=== PATIENT | male | born 1960 | race Caucasian/White ===

== ENCOUNTER 2017-02-27 11:45 | Inpatient (IN) ==
[2017-02-27] MEDS ORDERED: methylPREDNISolone 125 MG/2 ML VIAL IVP ONE (12:52)
[2017-02-27] MEDS ORDERED: Ipratropium/Albuterol Neb 3 ML IH ONE (12:52)
--- NOTE | 2017-02-27 13:21 | Emergency Department Note ---
Disposition Clinical Impression: COPD (chronic obstructive pulmonary disease) Qualifiers: COPD type: chronic bronchitis Chronic bronchitis type: unspecified Qualified Code(s): J42 - Unspecified chronic bronchitis Disposition: Admitted As Inpatient Condition: Good Referrals: Celso Simpson MD [Primary Care Provider] - Forms: ED Satisfaction Letter Time of Disposition: 15:30 General Adult HPI - General Chief complaint: ED Shortness of Breath/Dyspnea Stated complaint: PNEUMONIA Time Seen by Provider: 02/27/17 12:52 Source: patient Limitations: no limitations Nursing Notes Reviewed: Yes Vital Signs Reviewed: Yes - History of Present Illness HPI Narrative: HPI: 57-year-old male history of multiple PEs and DVTs factor V Leiden deficiency has a 2 day history of increasing chest discomfort dyspnea on exertion and malaise. Was seen earlier in the week and given "Z-[place]". Was seen earlier in the week at [facility] evaluated and worked up for COPD flare wanted was recommended to be admitted but the patient says he wanted to go home because he had an outpatient CAT scan of his chest. Patient is here for further evaluation he has speech dyspnea & expiratory wheezes Patient stated that the reason why he declined being admitted as he wanted to go to [place] where he got his [place] filter placed. Pain Scale: 8 - Related Data Home Medications Medication Instructions Recorded Confirmed ALPRAZolam [Xanax 1 MG Tablet] 1 mg PO TID 03/27/15 02/27/17 Gabapentin [Neurontin] 300 mg PO TID 03/27/15 02/27/17 Tizanidine HCl [Zanaflex] 4 mg PO TID 03/27/15 02/27/17 Warfarin [Coumadin] 10 mg PO QPM 03/27/15 02/27/17 DULoxetine [Cymbalta] 30 mg PO DAILY 02/27/17 02/27/17 Lisinopril [Zestril] 20 mg PO DAILY 02/27/17 02/27/17 Previous Rx's Medication Instructions Recorded Albuterol Sulfate [Albuterol 2 puff IH Q4HR PRN #1 hfa.aer.ad 04/01/15 Inhaler] Omeprazole [PriLOSEC] 40 mg PO DAILY@0630 #30 capsule 08/16/15 Allergies Allergy/AdvReac Type Severity Reaction Status Date / Time No Known Allergies Allergy Verified 02/18/17 16:01 All systems ED: reviewed and negative except as stated. Cardiovascular: Reports: chest pain Respiratory: Reports: cough, dyspnea, wheezes Past Medical History - Past Medical History Attestation: Yes The following information was validated with the patient. Source: patient Medical history: Reports: COPD, DVT, hypertension, pulmonary embolus, other ( Factor V Leiden deficiency) Surgical history: Reports: non-contributory Psychiatric history: Reports: anxiety - Social History Smoking Status: Current some day smoker Smokeless Tobacco Status: No Alcohol use: Reports: none Drug use: Reports: none Physical Exam - General Limitations: no limitations General appearance: alert, anxious, in distress - Head Head exam: atraumatic, normocephalic - Eye Eye exam: Present: normal appearance, PERRL - ENT ENT exam: normal exam, normal oropharynx - Neck Neck exam: Present: normal inspection, full ROM - Chest Chest inspection: Present: normal inspection, symmetric chest wall rise - Respiratory Respiratory exam: Present: respiratory distress, wheezes - Cardiovascular Cardiovascular exam: Present: regular rate, normal rhythm - Abdominal Exam Abdominal exam: Present: soft, Non-Tender - Extremities Exam Extremities exam: Present: normal inspection, full ROM - Expanded Lower Extremity Exam Neurovascular/Tendon exam: Present: normal capillary refill Gait: not tested/not observed - Back Exam Back exam: Present: normal inspection, full ROM - Neurological Exam Neurological exam: Present: alert, oriented X3, CN II-XII intact - Psychiatric Psychiatric exam: Present: normal affect, normal mood - Skin Skin exam: Present: warm, dry, intact Course - Reevaluation(s) Reevaluation #1: Patient improving clinically on DuoNeb treatments. Chest x-ray was obtained showed no obvious large infiltrate or effusion. Patient will get a CT angiogram of the chest to exclude the possibility of PE. Providing 45 minutes critical care service this patient with admission anticipated. Disposition pending Time: 13:22 Reevaluation #2: ED workup is complete. CT angiogram of chest shows no thromboembolic phenomenon from 2008 but no acute process. Aside from a possible inflammatory process which radiology suggests might be from aspiration esophageal findings.Patient still wheezing with shortness of breath patient will be admitted for COPD flare & hypoxia.Awaiting call back from hospitalist Time: 14:59 Reevaluation #3: Discussed the case with the hospitalist Damián Alexander, patient accepted for admission in stable condition Time: 15:28 Vital Signs Temperature 98.0 F 02/27/17 11:58 Pulse Rate 83 02/27/17 11:58 Respiratory Rate 15 02/27/17 11:58 Blood Pressure 115/75 02/27/17 11:58 O2 Sat by Pulse Oximetry 97 02/27/17 11:58 Temperature 98.0 F 02/27/17 11:58 Pulse Rate 69 02/27/17 13:43 Respiratory Rate 17 02/27/17 13:43 Blood Pressure 110/70 02/27/17 13:43 O2 Sat by Pulse Oximetry 100 02/27/17 13:43 Oxygen Delivery Oxygen Delivery Aerosol Mask Medical Decision Making - Lab Data Result diagrams: 02/27/17 13:18 02/27/17 13:18 Lab Results 02/27/17 02/27/17 02/27/17 Range/Units 13:18 13:18 13:18 WBC 12.1 H (4.3-11.1) K/mcL RBC 4.49 (4.19-5.50) M/mcL Hgb 13.9 (12.9-16.9) g/dL Hct 43.0 (37.5-50.1) % MCV 95.8 (83.0-100.0) fL MCH 31.0 (28.0-33.3) pg MCHC 32.3 (31.6-35.5) g/dL RDW 13.5 (11.5-14.5) % Plt Count 258 (140-400) K/mcL MPV 9.2 L (9.4-12.4) fL Immature Gran % 1.3 (0-4) % Seg Neutrophils % 42.0 % Lymphocytes % 39.5 % Monocytes % 14.9 % Eosinophils % 2.0 % Basophils % 0.3 % Neutrophils # 5.1 (1.6-8.9) K/mcL Lymphocytes # 4.8 H (0.6-4.6) K/mcL Monocytes # 1.8 H (0.0-1.3) K/mcL Eosinophils # 0.2 (0.0-0.6) K/mcL Basophils # 0.0 (0.0-0.2) K/mcL PT (9.4-12.1) Seconds INR Sodium 140 (136-145) mEq/L Potassium 4.4 (3.5-4.5) mEq/L Chloride 102 (98-109) mEq/L Carbon Dioxide 33 H (19-29) mEq/L BUN 18 (8-26) mg/dL Creatinine 1.03 (0.72-1.25) mg/dL Est GFR ( Amer) > 60 (> 60) Est GFR (Non-Af Amer) > 60 (> 60) BUN/Creatinine Ratio 17 (6-26) Glucose 77 (70-99) mg/dL Calculated Osmolality 291 (280-300) Lactic Acid 1.1 (0.5-2.2) mmol/L Calcium 9.6 (8.6-10.8) mg/dL Troponin I (0-0.03) ng/mL B-Natriuretic Peptide (0-100) pg/mL 02/27/17 02/27/17 02/27/17 Range/Units 13:18 13:18 13:19 WBC (4.3-11.1) K/mcL RBC (4.19-5.50) M/mcL Hgb (12.9-16.9) g/dL Hct (37.5-50.1) % MCV (83.0-100.0) fL MCH (28.0-33.3) pg MCHC (31.6-35.5) g/dL RDW (11.5-14.5) % Plt Count (140-400) K/mcL MPV (9.4-12.4) fL Immature Gran % (0-4) % Seg Neutrophils % % Lymphocytes % % Monocytes % % Eosinophils % % Basophils % % Neutrophils # (1.6-8.9) K/mcL Lymphocytes # (0.6-4.6) K/mcL Monocytes # (0.0-1.3) K/mcL Eosinophils # (0.0-0.6) K/mcL Basophils # (0.0-0.2) K/mcL PT 24.4 H D (9.4-12.1) Seconds INR 2.2 D Sodium (136-145) mEq/L Potassium (3.5-4.5) mEq/L Chloride (98-109) mEq/L Carbon Dioxide (19-29) mEq/L BUN (8-26) mg/dL Creatinine (0.72-1.25) mg/dL Est GFR ( Amer) (> 60) Est GFR (Non-Af Amer) (> 60) BUN/Creatinine Ratio (6-26) Glucose (70-99) mg/dL Calculated Osmolality (280-300) Lactic Acid (0.5-2.2) mmol/L Calcium (8.6-10.8) mg/dL Troponin I 0.00 (0-0.03) ng/mL B-Natriuretic Peptide 15 (0-100) pg/mL
[2017-02-27 13:30] LABS: Basophils % 0.3 %; Eosinophils # 0.2 K/mcL (0.0-0.6); Hemoglobin 13.9 g/dL (12.9-16.9); Immature Granulocytes % 1.3 % (0-4); Lymphocytes # 4.8 K/mcL (0.6-4.6); Lymphocytes % 39.5 %; Mean Corpuscular HGB Conc 32.3 g/dL (31.6-35.5); Mean Corpuscular Volume 95.8 fL (83.0-100.0); Mean Platelet Volume 9.2 fL (9.4-12.4); Monocytes # 1.8 K/mcL (0.0-1.3); Monocytes % 14.9 %; Neutrophils # 5.1 K/mcL (1.6-8.9); Platelet Count 258 K/mcL (140-400); Red Blood Count 4.49 M/mcL (4.19-5.50); Red Cell Distribution Width 13.5 % (11.5-14.5)
[2017-02-27 13:37] LABS: INR 2.2; Prothrombin Time 24.4 Seconds (9.4-12.1)
[2017-02-27 13:47] LABS: BUN/Creatinine Ratio 17 (6-26); Blood Urea Nitrogen 18 mg/dL (8-26); Calcium 9.6 mg/dL (8.6-10.8); Carbon Dioxide 33 mEq/L (19-29); Chloride 102 mEq/L (98-109); Glucose 77 mg/dL (70-99); Osmolality,Calculated 291 (280-300); Potassium 4.4 mEq/L (3.5-4.5); Sodium 140 mEq/L (136-145); eGFR For African Americans > 60 (> 60); eGFR For Non-African Americans > 60 (> 60)
[2017-02-27] MEDS ORDERED: Levofloxacin 750 MG/150 ML 750 MG/150 ML BAG IVPB ONE (15:26)
--- NOTE | 2017-02-27 21:02 | Internal Med History&Physical ---
<Isidro Hardy - Last Filed: 02/27/17 23:32> Date of Encounter: 02/27/17 Time of Encounter: 21:02 Assessment and Plan (1) Acute exacerbation of chronic obstructive airways disease Current visit: No Status: Acute CXR shows right middle lobe linear atelectasis CT angiogram of chest shows no thromboembolic phenomenon from 2008 but no acute process. There is a possible inflammatory process, which radiology suggests might be from aspiration esophageal findings VSS WBC 12.1 Kidney function WNL Coarse wheezing throughout with prolonged expiratory phase Quit smoking 2 years, used to smoke 1.5-2PPD for 20 years. smokes around him all day at the house Plan: IV Rocephin IV Solu-Medrol Duo-neb DOTTIE Mucinex DOTTIE IH Albuterol PRN Supplemental NC O2 Likely discharge in 48-72 hours (2) Dyspnea Current visit: No Status: Acute See above Qualifiers: Dyspnea type: shortness of breath Qualified Code(s): R06.02 - Shortness of breath (3) GERD (gastroesophageal reflux disease) Current visit: Yes Status: Chronic Chronically stable. Takes PPI at home. Will resume. Qualifiers: Esophagitis presence: without esophagitis Qualified Code(s): K21.9 - Gastro -esophageal reflux disease without esophagitis (4) HTN (hypertension) Current visit: No Status: Chronic BP 115/75 on arrival. Stable. 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 Oliva is a very pleasant 57 year old male with a past medical history of COPD, HTN, GERD, Anxiety, DVT and PE with [place] filter in place who presents to the [facility] Emergency Department with a chief complaint of shortness breath. He reports the shortness of breath started over a week ago and occurs both at rest and during exertion. He has associated dry cough, anterior chest wall pain during coughing and was seen here this past Monday for similar symptoms. He was slated for admission but he refused due to followup outpatient CT of his abdomen for verification of the placement of the IVC filter in [place] the following day. Patient was given a Zithromax, but over the next week, his symptoms persisted. At home, he is using an albuterol inhaler along with nebulizer machine with minimal benefit. He was hospitalized for PNA around this time last year. On arrival to the ED, vital signs stable, WBC 12.1, BNP 15 and kidney function normal. CXR shows right middle lobe linear atelectasis and CT angiogram of chest shows no thromboembolic phenomenon from 2008 but no acute process. There is a possible inflammatory process, which radiology suggests might be from aspiration esophageal findings. He was given steroids, levaquin and breathing treatments. On evaluation, he is no acute respiratory distress and states he is taking all his medications as prescribed. He denies any hemoptysis, fevers, palpitations or LE edema. He denies any EtOH abuse and quit smoking 2 years ago after smoking 1.5-2PPD for 20 years. He goes on to state that his was just discharged from the hospital and does smoke around him everyday. Along with the IVF filter for recurrent DVT and PE, he is taking Wafarin 10mg qd. INR today was 2.2. Patient is on IVF filter #4. We will admit patient for further workup and management. Past Med Surg Social Fam HX - Past Medical History Medical history: COPD, DVT, hypertension, pulmonary embolus, other Psychiatric history: anxiety - Past Surgical History Surgical History: non-contributory - Social History Smoking Status: Current some day smoker Smokeless Tobacco Status: No Alcohol use: none Drug use: none - Family History Father Age at : 73 Cause of : bladder caner Hx Family Cardiac Disorders: Yes Hx Family Genitourinary Disorders: Yes Hx Family Reproductive Disorders: Yes Internal Medicine - H&P: Meds ALPRAZolam [Xanax 1 MG Tablet] 1 mg PO TID 03/27/15 [History] Gabapentin [Neurontin] 300 mg PO TID 03/27/15 [History] Tizanidine HCl [Zanaflex] 4 mg PO TID 03/27/15 [History] Warfarin [Coumadin] 10 mg PO QPM 03/27/15 [History] Albuterol Sulfate [Albuterol Inhaler] 2 puff IH Q4HR PRN #1 hfa.aer.ad 04/01/15 [Rx] Omeprazole [PriLOSEC] 40 mg PO DAILY@0630 #30 capsule 08/16/15 [Rx] DULoxetine [Cymbalta] 30 mg PO DAILY 02/27/17 [History] Lisinopril [Zestril] 20 mg PO DAILY 02/27/17 [History] 3 Allergy/AdvReac Type Severity Reaction Status Date / Time No Known Allergies Allergy Verified 02/18/17 16:01 All Systems PM: A 10-system review of systems was performed and is negative for pertinent findings except as documented above in the HPI. - Constitutional Constitutional: no fatigue, no fever(s) - EENT Eyes: no change in vision Nose, mouth and throat: nasal discharge - Cardiovascular Cardiovascular ROS IM: chest pain, dyspnea, dyspnea on exertion, no diaphoresis , no edema, no lightheadedness, no palpitations, no syncope - Respiratory Respiratory: as per HPI, cough, no hemoptysis - Gastrointestinal Gastrointestinal: no abdominal pain - Genitourinary Genitourinary ROS male: no dysuria - Musculoskeletal Musculoskeletal ROS IM: no muscle weakness - Integumentary Integumentary IM: no new lesions - Neurological Neurological ROS: no headache(s) - Psychiatric Psychiatric: anxiety, no behavioral changes - Hematologic/Lymphatic Hematologic/Lymphatic: as per HPI - Constitutional Vitals: Temp Pulse Resp BP Pulse Ox 98.8 F 69 14 114/66 96 02/27/17 19:57 02/27/17 19:57 02/27/17 19:57 02/27/17 19:57 02/27/17 19:57 General appearance: Present: cooperative, A&O X 3, no acute distress - Head Head exam: Present: atraumatic, normocephalic - Eye Eye exam: Present: EOMI, conjuntiva pink, sclera anicteric - ENT ENT exam: Present: mucous membranes moist - Neck Neck exam general surgery: Present: supple, trachea midline - Respiratory Respiratory exam: Present: chest wall tenderness (sternal), prolonged expiratory phase, wheezes (coars). Absent: rales, respiratory distress, rhonchi - Cardiovascular Cardiovascular exam: Present: RRR, +S1, +S2. Absent: tachycardia - GI/Abdominal GI/Abdominal exam: Present: normal bowel sounds, soft. Absent: tenderness - Rectal Rectal exam: Present: deferred - Extremities Exam Extremities exam: Present: normal capillary refill, warm. Absent: calf tenderness, pedal edema, tenderness - Neurological Exam Neurological exam: Present: alert, oriented X3, no focal deficits. Absent: speech deficit - Psychiatric Psychiatric exam: Present: normal affect, normal mood - Skin Skin exam: Present: dry, normal color, warm Internal Med - H&P Results - Labs CBC & Chem 7: 02/27/17 13:18 02/27/17 13:18 <Lazarus Barajas - Last Filed: 02/28/17 02:37> Date of Encounter: 02/27/17 Internal Medicine - H&P: HPI History of present illness: Mr. Oliva is a 57 year old male All Systems PM: A 10-system review of systems was performed and is negative for pertinent findings except as documented above in the HPI. - Constitutional Vitals: Temp Pulse Resp BP Pulse Ox 98.8 F 63 16 115/78 91 02/27/17 19:57 02/27/17 23:14 02/27/17 23:28 02/27/17 23:14 02/27/17 23:28 Internal Med - H&P Results - Labs CBC & Chem 7: 02/27/17 13:18 02/27/17 13:18 - Attending Attestation I examined this patient and my medical decision-making was reviewed with the Resident Physician. I agree with the documented findings, disposition and treatment plan as described except to the extent set forth below. I have seen and examined the patient. Patient is a 57-year-old male with past medical history of COPD, recurrent DVT, hypertension, history of PE, anxiety and GERD. Patient also has a IVC filter in place. He presents to the ED with complaints of shortness of breath. Patient is being admitted for acute exacerbation of COPD. On examination patient is awake and alert. Not in any distress. Able to provide all history. Patient will need DuoNeb breathing treatment and IV Solu-Medrol and empiric Rocephin. Patient has been explained about his condition and plan care in detail. He understood and agreed. No unanswered questions. CODE STATUS full code. He is currently on 2 L nasal cannula. Heart S1-S2 positive no murmurs. Lungs: Good air entry bilateral wheezing present. Abdomen soft nontender.
[2017-02-27] MEDS ORDERED: Ondansetron 4 MG/2 ML VIAL IVP PRN (21:06)
[2017-02-27] MEDS ORDERED: Acetaminophen 325 MG TABLET PO PRN (21:06)
[2017-02-27] MEDS ORDERED: Naloxone 0.4 MG/ML INJ IVP PRN (21:06)
[2017-02-27] MEDS ORDERED: Albuterol 2.5 MG/3 ML NEBULIZER IH PRN (21:10)
[2017-02-27] MEDS ORDERED: *HR* Warfarin 5 MG TABLET PO SCH (21:15)
[2017-02-27] MEDS: ALPRAZolam 1 MG TABLET PO PRN (22:14)
[2017-02-27] MEDS: Gabapentin 300 MG CAPSULE PO SCH (22:14)
[2017-02-27] MEDS: *HR* Warfarin 5 MG TABLET PO SCH (22:16)
[2017-02-27] MEDS: Lisinopril 20 MG TABLET PO SCH (22:16)
[2017-02-27] MEDS ORDERED: cefTRIAXone 1,000 MG in Water for inj. (sterile) 10 ML IVP SCH (23:00)
[2017-02-27] MEDS: Ipratropium/Albuterol Neb 3 ML IH SCH (23:27)
[2017-02-28] MEDS ORDERED: methylPREDNISolone 125 MG/2 ML VIAL IVP SCH
[2017-02-28] MEDS: Ipratropium/Albuterol Neb 3 ML IH SCH ×6 (03:36→23:19)
[2017-02-28 04:46] LABS: Hematocrit 41.9 % (37.5-50.1); Hemoglobin 13.3 g/dL (12.9-16.9); Immature Granulocytes % 1.1 % (0-4); Lymphocytes # 0.8 K/mcL (0.6-4.6); Lymphocytes % 8.4 %; Mean Corpuscular HGB Conc 31.7 g/dL (31.6-35.5); Mean Corpuscular Hemoglobin 30.4 pg (28.0-33.3); Mean Corpuscular Volume 95.7 fL (83.0-100.0); Mean Platelet Volume 9.6 fL (9.4-12.4); Monocytes # 0.1 K/mcL (0.0-1.3); Monocytes % 1.4 %; Neutrophils # 8.9 K/mcL (1.6-8.9); Platelet Count 258 K/mcL (140-400); Red Blood Count 4.38 M/mcL (4.19-5.50); Red Cell Distribution Width 13.7 % (11.5-14.5); Segmented Neutrophils % 89.1 %
[2017-02-28 04:58] LABS: BUN/Creatinine Ratio 18 (6-26); Blood Urea Nitrogen 17 mg/dL (8-26); Calcium 9.2 mg/dL (8.6-10.8); Carbon Dioxide 27 mEq/L (19-29); Chloride 102 mEq/L (98-109); Glucose 173 mg/dL (70-99); Magnesium 2.2 mg/dL (1.6-2.6); Osmolality,Calculated 290 (280-300); Sodium 137 mEq/L (136-145); eGFR For African Americans > 60 (> 60); eGFR For Non-African Americans > 60 (> 60)
[2017-02-28] MEDS ORDERED: Levofloxacin 750 MG/150 ML 750 MG/150 ML BAG IVPB SCH (09:00)
[2017-02-28] MEDS: Lisinopril 20 MG TABLET PO SCH (10:20)
[2017-02-28] MEDS: tiZANidine 4 MG TABLET PO SCH ×3 (10:21→21:14)
[2017-02-28] MEDS: Gabapentin 300 MG CAPSULE PO SCH ×3 (10:21→21:14)
[2017-02-28] MEDS: ALPRAZolam 1 MG TABLET PO PRN ×2 (10:23→21:14)
--- NOTE | 2017-02-28 12:51 | Internal Med Progress Note ---
Date of Encounter: 02/28/17 Time of Encounter: 12:30 - Assessment and plan (1) Acute exacerbation of chronic obstructive airways disease Current Visit: No Status: Acute Assessment and plan: continue systemic steroids bronchodilator support O2 supplementation ABX Monitor O2 sat, goal O2 sat: 88-92% will obtain 6minute walk test for home O2 qualification if patient remains O2 dependent (2) History of pulmonary embolism Current Visit: No Status: Chronic Assessment and plan: continue anticoagulation with Coumadin s/p IVC filter placement (3) DVT prophylaxis Current Visit: No Status: Acute Assessment and plan: anticoagulated with coumadin (4) HTN (hypertension) Current Visit: No Status: Chronic Assessment and plan: continue home medications closely monitor BP Qualifiers: Hypertension type: essential hypertension Qualified Code(s): I10 - Essential (primary) hypertension (5) Anxiety Current Visit: Yes Status: Chronic Assessment and plan: continue home meds (6) Obesity (BMI 30-39.9) Current Visit: Yes Status: Chronic - Subjective Interval history: Patient seen and examined at bedside. Resting in bed and remains O2 dependent. Reports of not being on home oxygen and states even though he quit smoking years ago, his continues to smoke in the house and he constantly is exposed to second hand smoking. Reports of wet cough. - Constitutional Vitals: Temp Pulse Resp BP Pulse Ox 97.8 F 95 25 152/92 87 02/28/17 08:18 02/28/17 08:18 02/28/17 11:17 02/28/17 08:18 02/28/17 11:17 General appearance: Present: cooperative, A&O X 3, no acute distress, obese, answers questions appropriately - Head Head exam: Present: atraumatic, normocephalic - Eye Eye exam: Present: conjuntiva pink, sclera anicteric - Respiratory Respiratory exam: Present: wheezes (expiratory wheezing diffusely, coarse breath sounds, decreased inspiratory effort). Absent: accessory muscle use, respiratory distress - Cardiovascular Cardiovascular exam: Present: RRR, +S1, +S2. Absent: diastolic murmur, gallop, rubs, systolic murmur - GI/Abdominal GI/Abdominal exam: Present: normal bowel sounds, soft, no peritoneal signs. Absent: distended, tenderness - Extremities Exam Extremities exam: Present: warm, radial pulses palpable and symmetrical. Absent : calf tenderness, cyanotic, pedal edema - Neurological Exam Neurological exam: Present: alert, oriented X3 - Psychiatric Psychiatric exam: Present: normal affect, normal mood Internal Medicine: Result - Labs CBC & Chem 7: 02/28/17 03:15 02/28/17 03:15 Labs: Short CBC 02/28/17 Range/Units 03:15 WBC 9.9 (4.3-11.1) K/mcL Hgb 13.3 (12.9-16.9) g/dL Hct 41.9 (37.5-50.1) % Plt Count 258 (140-400) K/mcL Neutrophils # 8.9 (1.6-8.9) K/mcL BMP 02/28/17 03:15 Sodium 137 Potassium 5.0 H Chloride 102 Carbon Dioxide 27 BUN 17 Creatinine 0.96 Glucose 173 H Calcium 9.2 - ABG Interpretation ABG results: PT/INR, D-dimer PT 24.4 Seconds (9.4-12.1) H D 02/27/17 13:19 Consult Discharge Plan - Plan Referrals: Celso Simpson MD [Primary Care Provider] -
--- NOTE | 2017-02-28 14:14 | Electrocardiograph Report ---
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
[2017-02-28] MEDS: levoFLOXacin 500 MG TABLET PO SCH (14:58)
[2017-02-28] MEDS: *HR* Warfarin 5 MG TABLET PO SCH (16:32)
[2017-02-28] MEDS: MethylPREDNISolone 40 MG/ML VIAL IVP SCH ×2 (16:32→23:25)
[2017-02-28] MEDS ORDERED: Warfarin perPT PO PRN (18:00)
[2017-02-28] MEDS: GuaiFENesin/Dextromethorphan TABLET PO SCH (21:15)
[2017-02-28] MEDS: *HR* OxyCODONE/APAP 5/325 TABLET PO PRN (23:25)
[2017-03-01] MEDS: Ipratropium/Albuterol Neb 3 ML IH SCH ×5 (03:59→20:31)
[2017-03-01 05:16] LABS: Basophils % 0.1 %; Hematocrit 41.1 % (37.5-50.1); Hemoglobin 12.9 g/dL (12.9-16.9); Immature Granulocytes % 0.9 % (0-4); Lymphocytes # 0.8 K/mcL (0.6-4.6); Lymphocytes % 4.7 %; Mean Corpuscular HGB Conc 31.4 g/dL (31.6-35.5); Mean Corpuscular Hemoglobin 30.4 pg (28.0-33.3); Mean Corpuscular Volume 96.7 fL (83.0-100.0); Mean Platelet Volume 9.6 fL (9.4-12.4); Monocytes # 0.6 K/mcL (0.0-1.3); Monocytes % 3.8 %; Platelet Count 258 K/mcL (140-400); Red Blood Count 4.25 M/mcL (4.19-5.50); Red Cell Distribution Width 14.2 % (11.5-14.5); Segmented Neutrophils % 90.5 %
[2017-03-01 05:26] LABS: INR 4.4; Prothrombin Time 49.2 Seconds (9.4-12.1)
[2017-03-01 05:36] LABS: BUN/Creatinine Ratio 19 (6-26); Blood Urea Nitrogen 18 mg/dL (8-26); Calcium 9.2 mg/dL (8.6-10.8); Carbon Dioxide 26 mEq/L (19-29); Chloride 104 mEq/L (98-109); Glucose 174 mg/dL (70-99); Magnesium 2.2 mg/dL (1.6-2.6); Osmolality,Calculated 292 (280-300); Phosphorous 2.8 mg/dL (2.3-4.7); Potassium 4.8 mEq/L (3.5-4.5); Sodium 138 mEq/L (136-145); eGFR For African Americans > 60 (> 60); eGFR For Non-African Americans > 60 (> 60)
[2017-03-01] MEDS: *HR* OxyCODONE/APAP 5/325 TABLET PO PRN ×2 (10:03→20:47)
[2017-03-01] MEDS: MethylPREDNISolone 40 MG/ML VIAL IVP SCH ×2 (10:03→20:47)
[2017-03-01] MEDS: ALPRAZolam 1 MG TABLET PO PRN ×2 (10:03→16:35)
[2017-03-01] MEDS: GuaiFENesin/Dextromethorphan TABLET PO SCH (10:03)
[2017-03-01] MEDS: levoFLOXacin 500 MG TABLET PO SCH (10:03)
[2017-03-01] MEDS: tiZANidine 4 MG TABLET PO SCH ×3 (10:03→20:47)
[2017-03-01] MEDS: Gabapentin 300 MG CAPSULE PO SCH ×3 (10:03→20:47)
[2017-03-01] MEDS: Lisinopril 20 MG TABLET PO SCH (10:03)
--- NOTE | 2017-03-01 13:38 | Internal Med Progress Note ---
Date of Encounter: 03/01/17 Time of Encounter: 13:35 - Assessment and plan (1) Acute exacerbation of chronic obstructive airways disease Current Visit: No Status: Acute Assessment and plan: continue systemic steroids (Solumedrol 40mg IV q12h) bronchodilator support O2 supplementation ABX guaifenesin with codeine prn cough Monitor O2 sat, goal O2 sat: 88-92% will obtain 6minute walk test for home O2 qualification in am if patient remains O2 dependent (2) History of pulmonary embolism Current Visit: No Status: Chronic Assessment and plan: continue anticoagulation with Coumadin s/p IVC filter placement holding coumadin given INR of 4.4 (3) DVT prophylaxis Current Visit: No Status: Acute Assessment and plan: anticoagulated with coumadin (4) HTN (hypertension) Current Visit: No Status: Chronic Assessment and plan: continue home medications closely monitor BP Qualifiers: Hypertension type: essential hypertension Qualified Code(s): I10 - Essential (primary) hypertension (5) Anxiety Current Visit: Yes Status: Chronic Assessment and plan: continue home meds (6) Obesity (BMI 30-39.9) Current Visit: Yes Status: Chronic - Subjective Interval history: Patient seen and examined at bedside. Resting in bed and reports of having persistent coughing spells. noted to have expiratory wheezing, saturating well on nasal cannula but remains O2 dependent. will continue IV steroids and bronchodilator support will start guaifenesin with codeine prn cough pt will likely need home O2 on discharge - Constitutional Vitals: Temp Pulse Resp BP Pulse Ox 97.7 F 84 18 135/76 96 03/01/17 07:00 03/01/17 07:00 03/01/17 07:00 03/01/17 07:00 03/01/17 07:00 General appearance: Present: cooperative, A&O X 3, no acute distress, obese, answers questions appropriately - Head Head exam: Present: atraumatic, normocephalic - Eye Eye exam: Present: conjuntiva pink, sclera anicteric - Respiratory Respiratory exam: Present: wheezes (bilateral expiratory wheezing). Absent: respiratory distress - Cardiovascular Cardiovascular exam: Present: RRR, +S1, +S2. Absent: diastolic murmur, gallop, rubs, systolic murmur - GI/Abdominal GI/Abdominal exam: Present: normal bowel sounds, soft, no peritoneal signs. Absent: distended, tenderness - Extremities Exam Extremities exam: Present: warm, radial pulses palpable and symmetrical. Absent : calf tenderness - Neurological Exam Neurological exam: Present: alert, oriented X3 - Psychiatric Psychiatric exam: Present: normal affect, normal mood Internal Medicine: Result - Labs CBC & Chem 7: 03/01/17 04:03 03/01/17 04:03 Labs: Short CBC 03/01/17 Range/Units 04:03 WBC 16.6 H D (4.3-11.1) K/mcL Hgb 12.9 (12.9-16.9) g/dL Hct 41.1 (37.5-50.1) % Plt Count 258 (140-400) K/mcL Neutrophils # 15.0 H (1.6-8.9) K/mcL BMP 03/01/17 04:03 Sodium 138 Potassium 4.8 H Chloride 104 Carbon Dioxide 26 BUN 18 Creatinine 0.94 Glucose 174 H Calcium 9.2 - ABG Interpretation ABG results: PT/INR, D-dimer PT 49.2 Seconds (9.4-12.1) H* D 03/01/17 04:03 Consult Discharge Plan - Plan Referrals: Celso Simpson MD [Primary Care Provider] - 03/10/17 2:00 pm
[2017-03-01] MEDS ORDERED: *HR* OxyCODONE/APAP 5/325 TABLET PO PRN (15:44)
[2017-03-01] MEDS: GuaiFENesin/Codeine Oral Soln 5 ML UDC PO PRN (16:35)
[2017-03-02] MEDS: Ipratropium/Albuterol Neb 3 ML IH SCH ×6 (00:11→20:57)
[2017-03-02] MEDS: ALPRAZolam 1 MG TABLET PO PRN ×4 (00:39→23:23)
[2017-03-02] MEDS: GuaiFENesin/Codeine Oral Soln 5 ML UDC PO PRN ×3 (00:39→20:02)
[2017-03-02] MEDS: *HR* OxyCODONE/APAP 5/325 TABLET PO PRN ×3 (04:40→20:03)
[2017-03-02 07:08] LABS: BUN/Creatinine Ratio 20 (6-26); Blood Urea Nitrogen 19 mg/dL (8-26); Calcium 9.2 mg/dL (8.6-10.8); Carbon Dioxide 27 mEq/L (19-29); Chloride 102 mEq/L (98-109); Glucose 180 mg/dL (70-99); Magnesium 2.1 mg/dL (1.6-2.6); Osmolality,Calculated 289 (280-300); Phosphorous 3.2 mg/dL (2.3-4.7); Sodium 136 mEq/L (136-145); eGFR For African Americans > 60 (> 60); eGFR For Non-African Americans > 60 (> 60)
[2017-03-02 07:11] LABS: Basophils % 0.1 %; Hematocrit 40.1 % (37.5-50.1); Hemoglobin 13.1 g/dL (12.9-16.9); Immature Granulocytes % 0.8 % (0-4); Lymphocytes # 0.5 K/mcL (0.6-4.6); Lymphocytes % 3.7 %; Mean Corpuscular HGB Conc 32.7 g/dL (31.6-35.5); Mean Corpuscular Hemoglobin 31.6 pg (28.0-33.3); Mean Corpuscular Volume 96.9 fL (83.0-100.0); Mean Platelet Volume 9.1 fL (9.4-12.4); Monocytes # 0.7 K/mcL (0.0-1.3); Monocytes % 4.7 %; Neutrophils # 13.1 K/mcL (1.6-8.9); Platelet Count 217 K/mcL (140-400); Red Blood Count 4.14 M/mcL (4.19-5.50); Red Cell Distribution Width 14.3 % (11.5-14.5); Segmented Neutrophils % 90.7 %
[2017-03-02 07:20] LABS: INR 4.6; Prothrombin Time 50.7 Seconds (9.4-12.1)
[2017-03-02] MEDS: Gabapentin 300 MG CAPSULE PO SCH ×3 (08:59→20:03)
[2017-03-02] MEDS: Lisinopril 20 MG TABLET PO SCH (08:59)
[2017-03-02] MEDS: levoFLOXacin 500 MG TABLET PO SCH (08:59)
[2017-03-02] MEDS: MethylPREDNISolone 40 MG/ML VIAL IVP SCH ×2 (08:59→23:23)
[2017-03-02] MEDS: tiZANidine 4 MG TABLET PO SCH ×3 (08:59→20:02)
--- NOTE | 2017-03-02 12:39 | Internal Med Progress Note ---
Date of Encounter: 03/02/17 Time of Encounter: 12:37 - Assessment and plan (1) Acute exacerbation of chronic obstructive airways disease Current Visit: No Status: Acute Assessment and plan: continue systemic steroids (Solumedrol 40mg IV q12h) bronchodilator support O2 supplementation ABX guaifenesin with codeine prn cough Monitor O2 sat, goal O2 sat: 88-92% will obtain 6minute walk test for home O2 qualification (2) History of pulmonary embolism Current Visit: No Status: Chronic Assessment and plan: continue anticoagulation with Coumadin s/p IVC filter placement holding coumadin given INR of 4.6 Pt reports of being compliant with home meds however pt received one dose of his home dosed Coumadin and has been maintaining a supratherapeutic INR, therefore questionable if patient has been compliant with his home meds (3) DVT prophylaxis Current Visit: No Status: Acute Assessment and plan: anticoagulated with coumadin (4) HTN (hypertension) Current Visit: No Status: Chronic Assessment and plan: continue home medications closely monitor BP Qualifiers: Hypertension type: essential hypertension Qualified Code(s): I10 - Essential (primary) hypertension (5) Anxiety Current Visit: Yes Status: Chronic Assessment and plan: continue home meds (6) Obesity (BMI 30-39.9) Current Visit: Yes Status: Chronic - Subjective Interval history: Patient seen and examined at bedside. States his cough is better controlled but continues to feel short of breath even with minimal ambulation to the bathroom. Pt educated that he will need to remain on O2 support even with his trips to the bathroom. Noted to have b/l exp wheezing. Will continue IV steroids 6 minute walk test ordered for home O2 qualification. - Constitutional Vitals: Temp Pulse Resp BP Pulse Ox 97.9 F 80 18 126/73 95 03/02/17 11:06 03/02/17 11:06 03/02/17 11:20 03/02/17 11:06 03/02/17 11:20 General appearance: Present: cooperative, A&O X 3, morbidly obese, no acute distress, answers questions appropriately - Head Head exam: Present: atraumatic, normocephalic - Eye Eye exam: Present: conjuntiva pink, sclera anicteric - Respiratory Respiratory exam: Present: wheezes (b/l expiratory wheezing). Absent: respiratory distress - Cardiovascular Cardiovascular exam: Present: RRR, +S1, +S2. Absent: diastolic murmur, gallop, rubs, systolic murmur - GI/Abdominal GI/Abdominal exam: Present: normal bowel sounds, soft, no peritoneal signs. Absent: distended, tenderness - Extremities Exam Extremities exam: Present: warm, radial pulses palpable and symmetrical. Absent : calf tenderness - Neurological Exam Neurological exam: Present: alert, oriented X3 - Psychiatric Psychiatric exam: Present: normal affect, normal mood Internal Medicine: Result - Labs CBC & Chem 7: 03/02/17 06:48 03/02/17 06:48 Labs: Short CBC 03/02/17 Range/Units 06:48 WBC 14.4 H (4.3-11.1) K/mcL Hgb 13.1 (12.9-16.9) g/dL Hct 40.1 (37.5-50.1) % Plt Count 217 (140-400) K/mcL Neutrophils # 13.1 H (1.6-8.9) K/mcL BMP 03/02/17 06:48 Sodium 136 Potassium 5.0 H Chloride 102 Carbon Dioxide 27 BUN 19 Creatinine 0.94 Glucose 180 H Calcium 9.2 - ABG Interpretation ABG results: PT/INR, D-dimer PT 50.7 Seconds (9.4-12.1) H* 03/02/17 06:48 Consult Discharge Plan - Plan Referrals: Celso Simpson MD [Primary Care Provider] - 03/10/17 2:00 pm
[2017-03-03] MEDS: Ipratropium/Albuterol Neb 3 ML IH SCH ×7 (00:02→23:20)
[2017-03-03] MEDS: *HR* OxyCODONE/APAP 5/325 TABLET PO PRN ×4 (04:54→22:05)
[2017-03-03] MEDS: GuaiFENesin/Codeine Oral Soln 5 ML UDC PO PRN ×3 (04:54→22:06)
[2017-03-03] MEDS: ALPRAZolam 1 MG TABLET PO PRN ×3 (06:21→22:05)
[2017-03-03 06:50] LABS: INR 2.6; Prothrombin Time 28.9 Seconds (9.4-12.1)
[2017-03-03 07:02] LABS: Basophils % 0.1 %; Hematocrit 40.7 % (37.5-50.1); Hemoglobin 12.8 g/dL (12.9-16.9); Immature Granulocytes % 1.4 % (0-4); Lymphocytes # 0.7 K/mcL (0.6-4.6); Lymphocytes % 4.8 %; Mean Corpuscular HGB Conc 31.4 g/dL (31.6-35.5); Mean Corpuscular Hemoglobin 30.8 pg (28.0-33.3); Mean Corpuscular Volume 98.1 fL (83.0-100.0); Mean Platelet Volume 10.3 fL (9.4-12.4); Monocytes % 7.2 %; Neutrophils # 12.4 K/mcL (1.6-8.9); Platelet Count 232 K/mcL (140-400); Red Blood Count 4.15 M/mcL (4.19-5.50); Red Cell Distribution Width 14.4 % (11.5-14.5); Segmented Neutrophils % 86.5 %
[2017-03-03 07:24] LABS: BUN/Creatinine Ratio 20 (6-26); Blood Urea Nitrogen 18 mg/dL (8-26); Calcium 9.2 mg/dL (8.6-10.8); Carbon Dioxide 30 mEq/L (19-29); Chloride 100 mEq/L (98-109); Glucose 185 mg/dL (70-99); Magnesium 2.2 mg/dL (1.6-2.6); Osmolality,Calculated 291 (280-300); Phosphorous 2.8 mg/dL (2.3-4.7); Potassium 5.4 mEq/L (3.5-4.5); Sodium 137 mEq/L (136-145); eGFR For African Americans > 60 (> 60); eGFR For Non-African Americans > 60 (> 60)
[2017-03-03] MEDS: levoFLOXacin 500 MG TABLET PO SCH (08:03)
[2017-03-03] MEDS: Lisinopril 20 MG TABLET PO SCH (08:03)
[2017-03-03] MEDS: Gabapentin 300 MG CAPSULE PO SCH ×3 (08:03→22:06)
[2017-03-03] MEDS: tiZANidine 4 MG TABLET PO SCH ×3 (08:03→22:06)
[2017-03-03] MEDS: MethylPREDNISolone 40 MG/ML VIAL IVP SCH ×2 (08:04→14:38)
[2017-03-03] MEDS ORDERED: predniSONE 20 MG TABLET PO SCH (09:00)
--- NOTE | 2017-03-03 15:41 | Internal Med Progress Note ---
Date of Encounter: 03/03/17 Time of Encounter: 10:20 - Assessment and plan (1) Acute respiratory failure with hypoxia Current Visit: Yes Status: Acute Assessment and plan: Due to COPD exacerbation. Continue O2 supplementation. Wean FiO2 as tolerated. Patient may require home oxygen. We will evaluate prior to discharge. (2) Acute exacerbation of chronic obstructive airways disease Current Visit: Yes Status: Acute Assessment and plan: Patient continues to have bilateral end expiratory wheezing and significant dyspnea. We will increase intravenous steroids to 40 mg every 8 hours. We will also add Symbicort. Continue duo nebs every 4 hours. (3) History of pulmonary embolism Current Visit: Yes Status: Chronic Assessment and plan: INR is currently therapeutic. Will resume Coumadin. (4) HTN (hypertension) Current Visit: Yes Status: Chronic Assessment and plan: Well-controlled Qualifiers: Hypertension type: essential hypertension Qualified Code(s): I10 - Essential (primary) hypertension (5) Obesity (BMI 30-39.9) Current Visit: Yes Status: Chronic - Subjective Interval history: Patient complains of continued shortness of breath and chest discomfort and cough. He does not feel any better compared to yesterday. This continued to have wheezing. No nausea or vomiting. No fever reported overnight - Constitutional Vitals: Temp Pulse Resp BP Pulse Ox 97.7 F 111 16 122/54 94 03/03/17 11:32 03/03/17 11:32 03/03/17 11:32 03/03/17 11:32 03/03/17 11:32 General appearance: Present: cooperative, A&O X 3, morbidly obese, no acute distress, answers questions appropriately - Respiratory Respiratory exam: Present: decreased breath sounds (Decreased air entry bilaterally), prolonged expiratory phase, wheezes. Absent: accessory muscle use , rales, rhonchi - Cardiovascular Cardiovascular exam: Present: RRR, +S1, +S2. Absent: diastolic murmur, gallop, rubs, systolic murmur - Extremities Exam Extremities exam: Present: warm, radial pulses palpable and symmetrical. Absent : calf tenderness, cyanotic, pedal edema - Neurological Exam Neurological exam: Present: CN II-XII intact, oriented X3, no focal deficits. Absent: facial droop, speech deficit - Psychiatric Psychiatric exam: Present: anxious Internal Medicine: Result - Labs CBC & Chem 7: 03/03/17 02:52 03/03/17 06:56 Labs: Short CBC 03/03/17 Range/Units 02:52 WBC 14.3 H (4.3-11.1) K/mcL Hgb 12.8 L (12.9-16.9) g/dL Hct 40.7 (37.5-50.1) % Plt Count 232 (140-400) K/mcL Neutrophils # 12.4 H (1.6-8.9) K/mcL BMP 03/03/17 06:56 Sodium 137 Potassium 5.4 H Chloride 100 Carbon Dioxide 30 H BUN 18 Creatinine 0.90 Glucose 185 H Calcium 9.2 - ABG Interpretation ABG results: PT/INR, D-dimer PT 28.9 Seconds (9.4-12.1) H 03/03/17 02:52 - Impressions Impressions Chest X-Ray 03/03/17 10:30 IMPRESSION: 1. Stable chest x-ray with chronic elevation of the right hemidiaphragm with pleural thickening. D/ / Harsh Acosta MD / Harsh Acosta MD Interpreting Provider: Harsh Acosta MD Consult Discharge Plan - Plan Referrals: Celso Simpson MD [Primary Care Provider] - 03/10/17 2:00 pm
[2017-03-03] MEDS: *HR* Warfarin 7.5 MG TABLET PO SCH (16:46)
[2017-03-03] MEDS: Budesonide/Formoterol 80/4.5 MDI IH SCH (19:40)
[2017-03-04] MEDS: MethylPREDNISolone 40 MG/ML VIAL IVP SCH ×3 (00:30→16:04)
[2017-03-04] MEDS: Ipratropium/Albuterol Neb 3 ML IH SCH ×5 (03:52→20:04)
[2017-03-04] MEDS: *HR* OxyCODONE/APAP 5/325 TABLET PO PRN ×4 (04:00→23:14)
[2017-03-04] MEDS: Benzonatate 100 MG CAPSULE PO PRN ×2 (04:13→12:21)
[2017-03-04] MEDS: ALPRAZolam 1 MG TABLET PO PRN ×3 (06:00→23:14)
[2017-03-04] MEDS: Budesonide/Formoterol 80/4.5 MDI IH SCH ×2 (07:48→20:04)
[2017-03-04 08:20] LABS: INR 2.1; Prothrombin Time 23.3 Seconds (9.4-12.1)
[2017-03-04] MEDS: Gabapentin 300 MG CAPSULE PO SCH ×3 (08:35→22:15)
[2017-03-04] MEDS: tiZANidine 4 MG TABLET PO SCH ×3 (08:35→22:14)
[2017-03-04] MEDS: levoFLOXacin 500 MG TABLET PO SCH (08:35)
[2017-03-04] MEDS: GuaiFENesin/Codeine Oral Soln 5 ML UDC PO PRN ×3 (08:36→22:31)
[2017-03-04] MEDS: Acetylcysteine 10% 2 ML INHSOL IH SCH ×3 (15:35→20:04)
[2017-03-04] MEDS: Menthol 9.1 MG LOZENGE PO PRN ×2 (16:56→22:31)
[2017-03-04] MEDS: *HR* Warfarin 7.5 MG TABLET PO SCH (16:56)
--- NOTE | 2017-03-04 17:08 | Internal Med Progress Note ---
Date of Encounter: 03/04/17 Time of Encounter: 10:25 - Assessment and plan (1) Acute respiratory failure with hypoxia Current Visit: Yes Status: Acute Assessment and plan: Patient remains on 2 L O2 supplementation. Continue treatment of her underlying conditions. He will most likely need home oxygen. (2) Acute exacerbation of chronic obstructive airways disease Current Visit: Yes Status: Acute Assessment and plan: Bronchospasm appears to be improving. We will begin to taper steroids. Continue bronchodilators. Will add acetylcysteine to help with his secretions. (3) History of pulmonary embolism Current Visit: Yes Status: Chronic Assessment and plan: Continue Coumadin. INR remains therapeutic (4) HTN (hypertension) Current Visit: Yes Status: Chronic Assessment and plan: Controlled at this time. Continue current medications Qualifiers: Hypertension type: essential hypertension Qualified Code(s): I10 - Essential (primary) hypertension (5) Obesity (BMI 30-39.9) Current Visit: Yes Status: Chronic - Subjective Interval history: Patient continues to have shortness of breath and cough and these seem to be making some sputum. Denies any fever or chills. Does report improvement in his wheezing. - Constitutional Vitals: Temp Pulse Resp BP Pulse Ox 97.8 F 105 18 142/72 94 03/04/17 16:00 03/04/17 16:00 03/04/17 16:00 03/04/17 16:00 03/04/17 16:00 General appearance: Present: cooperative, mild distress, A&O X 3, morbidly obese , answers questions appropriately - Respiratory Respiratory exam: Present: decreased breath sounds (At both bases), prolonged expiratory phase, wheezes, tachypnea. Absent: accessory muscle use, rales, rhonchi - Cardiovascular Cardiovascular exam: Present: RRR, +S1, +S2. Absent: diastolic murmur, gallop, rubs, systolic murmur - GI/Abdominal GI/Abdominal exam: Present: normal bowel sounds, soft, no peritoneal signs. Absent: distended, tenderness - Extremities Exam Extremities exam: Present: warm, radial pulses palpable and symmetrical. Absent : calf tenderness, cyanotic, pedal edema - Neurological Exam Neurological exam: Present: alert, oriented X3, no focal deficits. Absent: facial droop, speech deficit - Skin Skin exam: Present: dry, intact Internal Medicine: Result - Labs CBC & Chem 7: 03/03/17 02:52 03/03/17 06:56 - ABG Interpretation ABG results: PT/INR, D-dimer PT 23.3 Seconds (9.4-12.1) H 03/04/17 07:30 Consult Discharge Plan - Plan Referrals: Celso Simpson MD [Primary Care Provider] - 03/10/17 2:00 pm
[2017-03-05] MEDS: Acetylcysteine 10% 2 ML INHSOL IH SCH ×7 (00:14→23:03)
[2017-03-05] MEDS: Ipratropium/Albuterol Neb 3 ML IH SCH ×7 (00:14→23:03)
[2017-03-05 05:00] LABS: INR 3.2; Prothrombin Time 35.4 Seconds (9.4-12.1)
[2017-03-05 05:06] LABS: BUN/Creatinine Ratio 21 (6-26); Blood Urea Nitrogen 21 mg/dL (8-26); Calcium 9.4 mg/dL (8.6-10.8); Carbon Dioxide 29 mEq/L (19-29); Chloride 100 mEq/L (98-109); Glucose 140 mg/dL (70-99); Osmolality,Calculated 293 (280-300); Potassium 4.9 mEq/L (3.5-4.5); Sodium 139 mEq/L (136-145); eGFR For African Americans > 60 (> 60); eGFR For Non-African Americans > 60 (> 60)
[2017-03-05] MEDS: *HR* OxyCODONE/APAP 5/325 TABLET PO PRN ×3 (05:49→19:48)
[2017-03-05] MEDS: GuaiFENesin/Codeine Oral Soln 5 ML UDC PO PRN ×3 (05:49→22:52)
[2017-03-05] MEDS: Budesonide/Formoterol 80/4.5 MDI IH SCH ×2 (07:51→20:08)
[2017-03-05] MEDS: levoFLOXacin 500 MG TABLET PO SCH (08:16)
[2017-03-05] MEDS: Gabapentin 300 MG CAPSULE PO SCH ×3 (08:16→22:53)
[2017-03-05] MEDS: tiZANidine 4 MG TABLET PO SCH ×3 (08:16→22:52)
[2017-03-05] MEDS: ALPRAZolam 1 MG TABLET PO PRN ×3 (08:16→22:52)
[2017-03-05] MEDS: predniSONE 20 MG TABLET PO SCH (08:16)
[2017-03-05] MEDS: Menthol 9.1 MG LOZENGE PO PRN (08:22)
--- NOTE | 2017-03-05 11:50 | Internal Med Progress Note ---
Date of Encounter: 03/05/17 Time of Encounter: 10:40 - Assessment and plan (1) Pneumonia Current Visit: Yes Status: Acute Assessment and plan: Cultures have been negative. Complete antibiotic course with Levaquin for 10 days. Qualifiers: Pneumonia type: due to unspecified organism Laterality: bilateral Lung location: unspecified part of lung Qualified Code(s): J18.9 - Pneumonia, unspecified organism (2) Acute respiratory failure with hypoxia Current Visit: Yes Status: Acute Assessment and plan: Improving. Currently saturating at 98% on room air. (3) Acute exacerbation of chronic obstructive airways disease Current Visit: Yes Status: Acute Assessment and plan: Continues to have bilateral wheezing. On oral prednisone and bronchodilators. We will continue current management for the day. Plan for discharge tomorrow if patient continues to improve (4) History of pulmonary embolism Current Visit: Yes Status: Chronic Assessment and plan: On Coumadin. INR is therapeutic. (5) HTN (hypertension) Current Visit: Yes Status: Chronic Assessment and plan: Blood pressure elevated. Resume lisinopril at lower dose. Qualifiers: Hypertension type: essential hypertension Qualified Code(s): I10 - Essential (primary) hypertension (6) Obesity (BMI 30-39.9) Current Visit: Yes Status: Chronic (7) Hyperkalemia Current Visit: No Status: Acute Assessment and plan: improved. We will resume lisinopril at a lower dose as patient's blood pressure is rising - Subjective Interval history: Patient feels slightly better today. Does complain of throat pain. Also having cough especially with deep breaths. He says it is now having some sputum after he was started on Mucomyst. - Constitutional Vitals: Temp Pulse Resp BP Pulse Ox 97.6 F 87 14 146/77 98 03/05/17 11:42 03/05/17 11:42 03/05/17 11:42 03/05/17 11:42 03/05/17 08:00 General appearance: Present: cooperative, mild distress, A&O X 3, morbidly obese , answers questions appropriately - Respiratory Respiratory exam: Present: prolonged expiratory phase, wheezes. Absent: accessory muscle use, rales, rhonchi - Cardiovascular Cardiovascular exam: Present: RRR, +S1, +S2. Absent: diastolic murmur, gallop, rubs, systolic murmur - GI/Abdominal GI/Abdominal exam: Present: normal bowel sounds, soft, no peritoneal signs. Absent: distended, tenderness - Extremities Exam Extremities exam: Present: warm, radial pulses palpable and symmetrical. Absent : calf tenderness, cyanotic, pedal edema - Neurological Exam Neurological exam: Present: alert, CN II-XII intact, oriented X3, no focal deficits. Absent: facial droop, speech deficit - Skin Skin exam: Present: dry, intact Internal Medicine: Result - Labs CBC & Chem 7: 03/03/17 02:52 03/05/17 04:10 Labs: BMP 03/05/17 04:10 Sodium 139 Potassium 4.9 H Chloride 100 Carbon Dioxide 29 BUN 21 Creatinine 0.99 Glucose 140 H Calcium 9.4 - ABG Interpretation ABG results: PT/INR, D-dimer PT 35.4 Seconds (9.4-12.1) H D 03/05/17 04:10 Consult Discharge Plan - Plan Referrals: Celso Simpson MD [Primary Care Provider] - 03/10/17 2:00 pm
[2017-03-05] MEDS ORDERED: Lisinopril 20 MG TABLET PO SCH (11:56)
[2017-03-05] MEDS: Benzonatate 100 MG CAPSULE PO PRN (16:18)
[2017-03-06] MEDS: Ipratropium/Albuterol Neb 3 ML IH SCH ×3 (03:58→11:02)
[2017-03-06] MEDS: Acetylcysteine 10% 2 ML INHSOL IH SCH ×3 (03:58→11:02)
[2017-03-06] MEDS: Benzonatate 100 MG CAPSULE PO PRN (04:33)
[2017-03-06] MEDS: *HR* OxyCODONE/APAP 5/325 TABLET PO PRN ×2 (04:33→12:00)
[2017-03-06 04:51] LABS: INR 3.5; Prothrombin Time 38.9 Seconds (9.4-12.1)
[2017-03-06] MEDS: Budesonide/Formoterol 80/4.5 MDI IH SCH (07:51)
[2017-03-06] MEDS: Menthol 9.1 MG LOZENGE PO PRN (08:33)
[2017-03-06] MEDS: ALPRAZolam 1 MG TABLET PO PRN ×2 (08:34→14:42)
[2017-03-06] MEDS: tiZANidine 4 MG TABLET PO SCH ×2 (08:34→14:42)
[2017-03-06] MEDS: GuaiFENesin/Codeine Oral Soln 5 ML UDC PO PRN ×2 (08:34→14:42)
[2017-03-06] MEDS: Gabapentin 300 MG CAPSULE PO SCH ×2 (08:34→14:42)
[2017-03-06] MEDS: predniSONE 20 MG TABLET PO SCH (08:34)
[2017-03-06] MEDS: levoFLOXacin 500 MG TABLET PO SCH (08:34)
[2017-03-06 10:57] VITALS: BP 121/76
[2017-03-06] MEDS ORDERED: Chloraseptic Spray 177 ML BOTTLE MM PRN (11:22)
--- NOTE | 2017-03-06 11:33 | Discharge Summary ---
Date of Encounter: 03/06/17 Time of Encounter: 10:00 - Discharge Diagnosis (1) Pneumonia Priority: Primary Status: Acute Qualifiers: Pneumonia type: due to unspecified organism Laterality: bilateral Lung location: unspecified part of lung Qualified Code(s): J18.9 - Pneumonia, unspecified organism (2) Acute respiratory failure with hypoxia Priority: Secondary Status: Acute (3) Acute exacerbation of chronic obstructive airways disease Priority: Secondary Status: Acute (4) History of pulmonary embolism Priority: Secondary Status: Chronic (5) HTN (hypertension) Priority: Secondary Status: Chronic Qualifiers: Hypertension type: essential hypertension Qualified Code(s): I10 - Essential (primary) hypertension (6) Obesity (BMI 30-39.9) Priority: Secondary Status: Chronic (7) Hyperkalemia Priority: Secondary Status: Acute - Discharge Medications Prescriptions: Albuterol Sulfate [Albuterol Inhaler] 2 puff IH Q4HR PRN #1 hfa.aer.ad PRN Reason: Shortness Of Breath GuaiFENesin/Codeine [ROBITUSSIN w/CODEINE] 5 ml PO Q6HR PRN #150 ml PRN Reason: Cough OxyCODONE/APAP 5/325 [Percocet 5/325 MG] 1 each PO Q6HR PRN #10 tablet PRN Reason: moderate to severe pain Benzonatate [Tessalon] 100 mg PO TID PRN #30 capsule PRN Reason: Cough Budesonide/Formoterol 80/4.5 [Symbicort 80/4.5] 2 puff IH BIDR #1 inhaler Chloraseptic [place] [Chloraseptic] 2 spray MM QID PRN #1 bottle PRN Reason: Sore Throat levoFLOXacin [Levaquin] 500 mg PO DAILY #4 tablet Lisinopril [Zestril] 10 mg PO DAILY #30 tablet predniSONE [PredniSONE] 10 mg PO DAILY 8 Days tablet Home Medications: ALPRAZolam [Xanax 1 MG Tablet] 1 mg PO TID 03/27/15 [History] Gabapentin [Neurontin] 300 mg PO TID 03/27/15 [History] Tizanidine HCl [Zanaflex] 4 mg PO TID 03/27/15 [History] Omeprazole [PriLOSEC] 40 mg PO DAILY@0630 #30 capsule 05/29/16 [Rx] DULoxetine [Cymbalta] 30 mg PO DAILY 02/27/17 [History] Acetaminophen [Tylenol] 650 mg PO Q6HR PRN tablet 03/06/17 [Rx] Albuterol Sulfate [Albuterol Inhaler] 2 puff IH Q4HR PRN #1 hfa.aer.ad 03/06/17 [Rx] Benzonatate [Tessalon] 100 mg PO TID PRN #30 capsule 03/06/17 [Rx] Budesonide/Formoterol 80/4.5 [Symbicort 80/4.5] 2 puff IH BIDR #1 inhaler 03/06 [Rx] Chloraseptic [place] [Chloraseptic] 2 spray MM QID PRN #1 bottle 03/06/17 [Rx] GuaiFENesin/Codeine [ROBITUSSIN w/CODEINE] 5 ml PO Q6HR PRN #150 ml 03/06/17 [Rx ] Lisinopril [Zestril] 10 mg PO DAILY #30 tablet 03/06/17 [Rx] OxyCODONE/APAP 5/325 [Percocet 5/325 MG] 1 each PO Q6HR PRN #10 tablet 03/06/17 [Rx] Warfarin [Coumadin] 5 mg PO QPM #0 03/06/17 [Rx] levoFLOXacin [Levaquin] 500 mg PO DAILY #4 tablet 03/06/17 [Rx] predniSONE [PredniSONE] 10 mg PO DAILY 8 Days tablet 03/06/17 [Rx] Allergies/Adverse Reactions: 3 Allergy/AdvReac Type Severity Reaction Status Date / Time No Known Allergies Allergy Verified 02/18/17 16:01 Date of admission: 02/27/17 20:14 Primary care physician: Celso Simpson MD Consults: 02/28/17 13:52 Consult to [facility] [CONS] Routine Reason for Consult: For high anxiety and depression; needs resources for local area; already notified Discharging clinician: Ruy Castillo Anticipated date of discharge: 03/06/17 - Patient Status Disposition: Home, Self-Care Condition: Good Functional capacity at discharge: independent ambulation Overall status at discharge: patient is progressing back to baseline - Discharge Instructions Instructions: Benzonatate (By mouth), Lisinopril (By mouth), Oxycodone/ Acetaminophen (By mouth), Albuterol (By mouth), Prednisone (By mouth), Antitussives (By mouth), Levofloxacin (By mouth), Budesonide/Formoterol (By breathing), Acute Respiratory Distress Syndrome (DC), Chronic Obstructive Pulmonary Disease (DC), Chronic Hypertension (DC), Anxiety (DC), Pneumonia (DC) Follow Up With: Celso Simpson MD [Primary Care Provider] - 03/10/17 2:00 pm - Diet and Activity Activity: increase activity as tolerated Diet: low fat, low cholesterol, low salt diet Hospital course: Mr. Oliva is a 57 year old male patient with a history of COPD, hypertension, anxiety, gastroesophageal reflux disease, DVT and PE with Holli filter in place, factor V Leiden was hospitalized here with acute hypoxic respiratory failure and COPD exacerbation along with pneumonia. He was treated with intravenous antibiotics, bronchodilators and intravenous steroids. His symptoms have gradually improved now and he is on oral steroids and is wheezing much less. His cough and shortness of breath also improved. He is no longer requiring O2 supplementation. He is clinically stable for discharge home and will complete treatment course for COPD with a short course of antibiotics for pneumonia with levofloxacin. He will follow up with his PCP for further management of his chronic medical conditions. - Time Spent with Patient Total time spent providing and/or coordinating discharge services: Greater than 30 minutes (45 min) - Constitutional Vitals: Temp Pulse Resp BP Pulse Ox 97.9 F 78 20 121/76 92 03/06/17 10:55 03/06/17 10:55 03/06/17 11:03 03/06/17 10:55 03/06/17 11:03 General appearance: Present: cooperative, mild distress, A&O X 3, morbidly obese , answers questions appropriately - Neck Neck exam general surgery: Present: supple, trachea midline. Absent: lymphadenopathy - Respiratory Respiratory exam: Present: prolonged expiratory phase, wheezes (Mild end expiratory wheezing). Absent: accessory muscle use, rales, rhonchi - Cardiovascular Cardiovascular exam: Present: RRR, +S1, +S2. Absent: diastolic murmur, gallop, rubs, systolic murmur - GI/Abdominal GI/Abdominal exam: Present: normal bowel sounds, soft, no peritoneal signs. Absent: distended, tenderness - Extremities Exam Extremities exam: Present: warm, radial pulses palpable and symmetrical. Absent : calf tenderness, cyanotic, pedal edema - Neurological Exam Neurological exam: Present: alert, CN II-XII intact, oriented X3, no focal deficits. Absent: facial droop, speech deficit - Skin Skin exam: Present: dry, intact
== END 2017-03-06 15:45 | disposition home or self-care (01) | DRG 190 ==
LOC: EMEROO 11:45 → 2NENU 11:45 → SUATTDRO 20:14
PROVIDERS: ADMIT Hospitalist; ATTEND Internal Medicine

== ENCOUNTER 2017-03-23 13:59 | Inpatient (IN) ==
[2017-03-23] MEDS ORDERED: Ipratropium/Albuterol Neb 3 ML IH ONE (14:30)
[2017-03-23] MEDS ORDERED: predniSONE 20 MG TABLET PO ONE (14:30)
[2017-03-23] MEDS ORDERED: 0.9 % Sodium Chloride 1,000 ML IVC ONE ×3 (14:30→22:35)
--- NOTE | 2017-03-23 14:30 | Emergency Department Note ---
Disposition Clinical Impression: Influenza A, CAP (community acquired pneumonia), Sepsis Disposition: Admitted As Inpatient Condition: Fair Referrals: Celso Simpson MD [Primary Care Provider] - General Adult HPI - General Chief complaint: ED Shortness of Breath/Dyspnea Stated complaint: Vomiting Time Seen by Provider: 03/23/17 14:26 Source: patient Limitations: no limitations - History of Present Illness Pain Scale: 7 - Related Data Home Medications Medication Instructions Recorded Confirmed ALPRAZolam [Xanax 1 MG Tablet] 1 mg PO DAILY PRN 03/27/15 03/23/17 Gabapentin [Neurontin] 300 mg PO TID 03/27/15 03/23/17 Tizanidine HCl [Zanaflex] 4 mg PO TID PRN 03/27/15 03/23/17 DULoxetine [Cymbalta] 30 mg PO DAILY 02/27/17 03/23/17 Atorvastatin [Lipitor] 10 mg PO HS 03/23/17 03/23/17 Diclofenac Sodium [Voltaren] 1 appl TP TID PRN 03/23/17 03/23/17 Lisinopril [Zestril] 20 mg PO DAILY 03/23/17 03/23/17 Warfarin [Coumadin] 10 mg PO 1800 03/23/17 03/23/17 Previous Rx's Medication Instructions Recorded Omeprazole [PriLOSEC] 40 mg PO DAILY@0630 #30 capsule 08/16/15 Albuterol Sulfate [Albuterol 2 puff IH Q4HR PRN #1 hfa.aer.ad 03/06/17 Inhaler] Budesonide/Formoterol 80/4.5 2 puff IH BIDR #1 inhaler 03/06/17 [Symbicort 80/4.5] Allergies Allergy/AdvReac Type Severity Reaction Status Date / Time No Known Allergies Allergy Verified 02/18/17 16:01 Past Medical History - Past Medical History Medical history: Reports: COPD, DVT, hypertension, pulmonary embolus Surgical history: Reports: non-contributory Psychiatric history: Reports: anxiety - Social History Smoking Status: Former smoker Smokeless Tobacco Status: No Alcohol use: Reports: none Drug use: Reports: none Physical Exam - General Limitations: no limitations General appearance: alert, in no apparent distress Course Vital Signs Temperature 100.0 F H 03/23/17 14:16 Pulse Rate 97 03/23/17 14:16 Respiratory Rate 18 03/23/17 14:16 Blood Pressure 81/53 03/23/17 14:16 O2 Sat by Pulse Oximetry 94 03/23/17 14:16 Temperature 98.2 F 03/23/17 17:57 Pulse Rate 72 03/23/17 17:56 Respiratory Rate 17 03/23/17 17:56 Blood Pressure 96/69 03/23/17 17:56 O2 Sat by Pulse Oximetry 97 03/23/17 17:56 Oxygen Delivery Oxygen Delivery Room Air Medical Decision Making - Lab Data Result diagrams: 03/23/17 14:35 03/23/17 14:35 - EKG Data EKG #1 EKG attestation: Yes I reviewed and interpreted this EKG. EKG shows normal: sinus rhythm Rhythm: NSR (79 bpm [place] 151 QRS 72 QTc [address] segment elevations or depressions.) Attestation Statement - Attestation Attestation: I examined this patient and my medical decision-making was reviewed with the Resident Physician. I agree with the documented findings, disposition and treatment plan as described except to the extent set forth below. [id number] time provided Patient arrives complaining of dyspnea, cough, wheezing. He does have audible wheezing and a nonproductive cough on exam. Takes Coumadin due to recurrent pulmonary emboli. Plan of care and management discussed by me with the resident physician
[2017-03-23] MEDS ORDERED: Ondansetron 4 MG/2 ML VIAL IVP ONE (14:38)
[2017-03-23 14:51] LABS: Eosinophils # 0.1 K/mcL (0.0-0.6); Hemoglobin 13.4 g/dL (12.9-16.9); Mean Corpuscular HGB Conc 32.7 g/dL (31.6-35.5); Mean Corpuscular Hemoglobin 30.7 pg (28.0-33.3); Mean Corpuscular Volume 93.8 fL (83.0-100.0); Mean Platelet Volume 9.2 fL (9.4-12.4); Monocytes # 1.6 K/mcL (0.0-1.3); Platelet Count 210 K/mcL (140-400); Red Blood Count 4.37 M/mcL (4.19-5.50); Red Cell Distribution Width 13.2 % (11.5-14.5)
[2017-03-23 14:59] LABS: Calcium 8.9 mg/dL (8.6-10.3); Potassium 4.6 mEq/L (3.5-5.1)
[2017-03-23 15:14] LABS: Basophils # 0.3 K/mcL (0.0-0.2); Lymphocytes # 2.7 K/mcL (0.6-4.6); Neutrophils # 2.4 K/mcL (1.6-8.9); Reactive Lymphocytes Present (Not Present)
[2017-03-23 15:15] LABS: Platelet Estimate Normal (Normal)
--- NOTE | 2017-03-23 15:50 | Emergency Department Note ---
Disposition Clinical Impression: Influenza A CAP (community acquired pneumonia) Qualifiers: Laterality: right Lung location: unspecified part of lung Qualified Code(s): J18.9 - Pneumonia, unspecified organism Sepsis Qualifiers: Sepsis type: sepsis due to unspecified organism Qualified Code(s): A41.9 - Sepsis, unspecified organism Disposition: Admitted As Inpatient Condition: Fair Time of Disposition: 19:03 General Adult HPI - General Chief complaint: ED Shortness of Breath/Dyspnea Stated complaint: Vomiting Time Seen by Provider: 03/23/17 14:26 Source: patient Limitations: no limitations Nursing Notes Reviewed: Yes Vital Signs Reviewed: Yes - History of Present Illness HPI Narrative: 57-year-old history of for DVTs, PEs, IVC filter, CAD, male complaining of chest pain cough shortness breath. Patient was diagnosed with a upper respiratory infection 2 or 3 days ago patient states that he has had a temperature of 103 degrees at home. Patient describes cough congestion for the last 2 days, also has myalgias. Patient reports fever, nausea, emesis, chest discomfort congestion and myalgias. He denies hemoptysis. Onset (ago): day(s) Location: head, chest Pain Severity: moderate Pain Scale: 7 Consistency: intermittent Improves with: nothing Worsens with: nothing Associated symptoms: Reports: chest pain, cough, diaphoresis, fever/chills, headaches, malaise, nausea/vomiting - Related Data Home Medications Medication Instructions Recorded Confirmed ALPRAZolam [Xanax 1 MG Tablet] 1 mg PO DAILY PRN 03/27/15 03/23/17 Gabapentin [Neurontin] 300 mg PO TID 03/27/15 03/23/17 Tizanidine HCl [Zanaflex] 4 mg PO TID PRN 03/27/15 03/23/17 DULoxetine [Cymbalta] 30 mg PO DAILY 02/27/17 03/23/17 Atorvastatin [Lipitor] 10 mg PO HS 03/23/17 03/23/17 Diclofenac Sodium [Voltaren] 1 appl TP TID PRN 03/23/17 03/23/17 Lisinopril [Zestril] 20 mg PO DAILY 03/23/17 03/23/17 Warfarin [Coumadin] 10 mg PO 1800 03/23/17 03/23/17 Previous Rx's Medication Instructions Recorded Omeprazole [PriLOSEC] 40 mg PO DAILY@0630 #30 capsule 08/16/15 Albuterol Sulfate [Albuterol 2 puff IH Q4HR PRN #1 hfa.aer.ad 03/06/17 Inhaler] Budesonide/Formoterol 80/4.5 2 puff IH BIDR #1 inhaler 03/06/17 [Symbicort 80/4.5] Allergies Allergy/AdvReac Type Severity Reaction Status Date / Time No Known Allergies Allergy Verified 02/18/17 16:01 All systems ED: reviewed and negative except as stated. Review of Systems: As Per HPI Constitutional: Reports: fever, chills, weakness Eyes: Denies: eye pain ENT ED: Denies: ear pain, throat pain Cardiovascular: Reports: chest pain. Denies: palpitations Respiratory: Reports: as per HPI, cough, dyspnea Gastrointestinal: Reports: nausea, vomiting. Denies: abdominal pain Musculoskeletal: Denies: back pain Integumentary: Denies: rash, abrasion Neurological: Denies: headache Past Medical History - Past Medical History Attestation: Yes The following information was validated with the patient. Source: patient Medical history: Reports: COPD, DVT, hypertension, pulmonary embolus Surgical history: Reports: non-contributory Psychiatric history: Reports: anxiety - Social History Smoking Status: Former smoker Smokeless Tobacco Status: No Alcohol use: Reports: none Drug use: Reports: none Physical Exam Constitutional: obese febrile, tachycardic appears uncomfortable, hypoxic 84% on room air Eyes: PERRLA, sclera anicteric ENT & Mouth: MM dry Neck: normal inspection, neck is supple Resp: Has inspiratory and expiratory wheezes CV: tachycardia, no m/g/r GI: normal inspection, soft, no guarding or rigidity Neuro: A&O3, CNII-XII grossly intact, BRANCH Skin: on limited exam, skin intact with no rashes or lesions - General Limitations: no limitations General appearance: alert, in no apparent distress Course Course Narrative: 57-year-old male appears of the flu rapid flu test also given 2 units of fluid 2 L normal saline given his tachycardia, and place a nasal cannula due to hypoxia, patient appears mildly distressed - Reevaluation(s) Reevaluation #1: Influence of positive, chest CT scan shows no evidence of PE but possible infiltrate, will start on Levaquin given no hospitalization recently, Tamiflu, patient is to be admitted to the hospitalist service technically meets criteria for sepsis given tachycardia fever, but suspect likely due to influenza, the patient will be given to liters of fluid, no evidence of hypotension or septic shock or severe sepsis given negative lactate accepting Vital Signs Temperature 100.0 F H 03/23/17 14:16 Pulse Rate 97 03/23/17 14:16 Respiratory Rate 18 03/23/17 14:16 Blood Pressure 81/53 03/23/17 14:16 O2 Sat by Pulse Oximetry 94 03/23/17 14:16 Temperature 98.2 F 03/23/17 17:57 Pulse Rate 72 03/23/17 17:56 Respiratory Rate 17 03/23/17 17:56 Blood Pressure 96/69 03/23/17 17:56 O2 Sat by Pulse Oximetry 97 03/23/17 17:56 Oxygen Delivery Oxygen Delivery Room Air Medical Decision Making - Lab Data Result diagrams: 03/23/17 14:35 03/23/17 14:35 Lab Results 03/23/17 03/23/17 03/23/17 Range/Units 14:35 14:35 14:35 WBC 7.1 (4.3-11.1) K/mcL RBC 4.37 (4.19-5.50) M/mcL Hgb 13.4 (12.9-16.9) g/dL Hct 41.0 (37.5-50.1) % MCV 93.8 (83.0-100.0) fL MCH 30.7 (28.0-33.3) pg MCHC 32.7 (31.6-35.5) g/dL RDW 13.2 (11.5-14.5) % Plt Count 210 (140-400) K/mcL MPV 9.2 L (9.4-12.4) fL Seg Neutrophils % 30.0 % Band Neutrophils % 4.0 (0-4) % Lymphocytes % 38.0 % Monocytes % 22.0 % Eosinophils % 2.0 % Basophils % 4.0 % Neutrophils # 2.4 (1.6-8.9) K/mcL Lymphocytes # 2.7 (0.6-4.6) K/mcL Monocytes # 1.6 H (0.0-1.3) K/mcL Eosinophils # 0.1 (0.0-0.6) K/mcL Basophils # 0.3 H (0.0-0.2) K/mcL Reactive Lymphocytes Present A (Not Present) Platelet Estimate Normal (Normal) Large Platelets (Not Present) Sodium 133 L (136-145) mEq/L Potassium 4.6 (3.5-5.1) mEq/L Chloride 100 (98-107) mEq/L Carbon Dioxide 26 (23-29) mEq/L BUN 18 (6-20) mg/dL Creatinine 1.69 H (0.70-1.30) mg/dL Est GFR ( Amer) 51 L (> 60) Est GFR (Non-Af Amer) 42 L (> 60) BUN/Creatinine Ratio 11 (6-26) Glucose 110 H (70-105) mg/dL Calculated Osmolality 279 L (280-300) Lactic Acid 1.4 (0.5-2.2) mmol/L Calcium 8.9 (8.6-10.3) mg/dL Troponin I (< 0.04) ng/mL B-Natriuretic Peptide (Less than 100) pg/mL 03/23/17 03/23/17 Range/Units 14:35 14:35 WBC (4.3-11.1) K/mcL RBC (4.19-5.50) M/mcL Hgb (12.9-16.9) g/dL Hct (37.5-50.1) % MCV (83.0-100.0) fL MCH (28.0-33.3) pg MCHC (31.6-35.5) g/dL RDW (11.5-14.5) % Plt Count (140-400) K/mcL MPV (9.4-12.4) fL Seg Neutrophils % % Band Neutrophils % (0-4) % Lymphocytes % % Monocytes % % Eosinophils % % Basophils % % Neutrophils # (1.6-8.9) K/mcL Lymphocytes # (0.6-4.6) K/mcL Monocytes # (0.0-1.3) K/mcL Eosinophils # (0.0-0.6) K/mcL Basophils # (0.0-0.2) K/mcL Reactive Lymphocytes (Not Present) Platelet Estimate (Normal) Large Platelets (Not Present) Sodium (136-145) mEq/L Potassium (3.5-5.1) mEq/L Chloride (98-107) mEq/L Carbon Dioxide (23-29) mEq/L BUN (6-20) mg/dL Creatinine (0.70-1.30) mg/dL Est GFR ( Amer) (> 60) Est GFR (Non-Af Amer) (> 60) BUN/Creatinine Ratio (6-26) Glucose (70-105) mg/dL Calculated Osmolality (280-300) Lactic Acid (0.5-2.2) mmol/L Calcium (8.6-10.3) mg/dL Troponin I < 0.03 (< 0.04) ng/mL B-Natriuretic Peptide 15 (Less than 100) pg/mL
[2017-03-23] MEDS ORDERED: cefTRIAXone 2,000 MG in Water for inj. (sterile) 20 ML 20 ML IVP ONE (17:19)
[2017-03-23] MEDS ORDERED: Azithromycin 500 MG in D5% in Water 250 ML IVPB ONE (17:21)
[2017-03-23] MEDS ORDERED: Acetaminophen 325 MG TABLET PO PRN (18:34)
[2017-03-23] MEDS ORDERED: Ondansetron 4 MG/2 ML VIAL IVP PRN (18:34)
[2017-03-23] MEDS ORDERED: Naloxone 0.4 MG/ML INJ IVP PRN (18:34)
--- NOTE | 2017-03-23 18:56 | Internal Med History&Physical ---
<Maci Moreland - Last Filed: 03/23/17 20:14> Date of Encounter: 03/23/17 Time of Encounter: 18:50 Assessment and Plan (1) Acute respiratory failure with hypoxia Current visit: Yes Status: Acute Patient presented with increased shortness of breath over the past 3 days as well as wheezing. With low 90s S PO2 on presentation. He has both pneumonia and influenza, we will continue with oxygen titrating to maintain SPO2 greater than 92% Bronchodilators (2) Pneumonia Current visit: No Status: Acute 1 patient has been receiving increased shortness of breath over the past 3 days as well as fever cough wheezing. Chest x-ray was negative for any acute process CTA chest did reveal right middle/lower lobe pneumonia-he was recently treated for pneumonia earlier in February-which she completed treatment- patient has been vomiting for the past 3 days-possible aspiration-blood cultures were obtained patient initiated on azithromycin and Rocephin in the ER we will initiate on vancomycin and Zosyn due to recent hospitalization for pneumonia as well as concerns for aspirations We will give Solu-Medrol Bronchodilators Oxygen titrated to maintain SPO2 92% Qualifiers: Pneumonia type: due to unspecified organism Laterality: right Lung location: unspecified part of lung Qualified Code(s): J18.9 - Pneumonia, unspecified organism (3) Influenza A Current visit: Yes Status: Acute Patient has been experiencing fevers and chills and cough and wheezing and general malaise and nausea vomiting. Influenza swab positive for influenza A. Patient initiated on Tamiflu (4) RITIKA (acute kidney injury) Current visit: Yes Status: Acute Patient has creatinine of 1.69 baseline is normally less than 1. Patient has not been eating and drinking for the past 3 days, having nausea and vomiting-he is also on antihypertensives suspect this is prerenal-related to infectious process as well as hypotension we will hold antihypertensives for now will give gentle IV fluids overnight and monitor creatinine Monitor intake and output daily weight Maintained MAP greater than 60 Avoid nephrotoxins (5) DVT prophylaxis Current visit: No Status: Acute Patient is on Coumadin and has [place] filter-we will monitor INR daily and pharmacy to dose Internal Medicine - H&P: HPI Chief complaint: sob Admitted From: Emergency Dept Plans for Post Hospital Care: Home History of present illness: Mr. Oliva is a 57 year old male past medical history of DVT PE IVC filter [place] patient was recently admitted to this hospital February for pneumonia. He states since he was discharged from the edition he began to improve somewhat until about 3 days ago when he began to experience nausea vomiting fevers cough and general malaise. He states he has been unable to keep any food or liquid down for the past 3 days and has been vomiting several times throughout the day. He had a fever on Monday of 103 and has been growing increasingly short of breath with wheezing. He presented to the ER with the above complaints. Upon presentation patient was hypotensive with systolic pressure in the 80s and hypoxic 92 and SPO2 on room air lab work revealed no leukocytosis however he did have a KI lactate was 1.4. Chest x-ray showed no acute process CTA was performed which did reveal subtle groundglass opacities in right middle and lower lobe. He was given IV fluids blood cultures were obtained initiated on Rocephin and azithromycin and given DuoNeb's. He was admitted for further workup and evaluation. Presently patient is a sleepy but arouses to verbal stimuli. He does have audible wheezes he is hemodynamically stable at this time and is protecting his airway. Past Med Surg Social Fam HX - Past Medical History Medical history: COPD, DVT, hypertension, pulmonary embolus Psychiatric history: anxiety - Past Surgical History Surgical History: non-contributory - Social History Smoking Status: Former smoker Smokeless Tobacco Status: No Alcohol use: none Drug use: none - Family History Father Hx Family Cardiac Disorders: Yes Internal Medicine - H&P: Meds ALPRAZolam [Xanax 1 MG Tablet] 1 mg PO DAILY PRN 03/27/15 [History] Gabapentin [Neurontin] 300 mg PO TID 03/27/15 [History] Tizanidine HCl [Zanaflex] 4 mg PO TID PRN 03/27/15 [History] Omeprazole [PriLOSEC] 40 mg PO DAILY@0630 #30 capsule 08/16/15 [Rx] DULoxetine [Cymbalta] 30 mg PO DAILY 02/27/17 [History] Albuterol Sulfate [Albuterol Inhaler] 2 puff IH Q4HR PRN #1 hfa.aer.ad 03/06/17 [Rx] Budesonide/Formoterol 80/4.5 [Symbicort 80/4.5] 2 puff IH BIDR #1 inhaler 03/06 [Rx] Atorvastatin [Lipitor] 10 mg PO HS 03/23/17 [History] Diclofenac Sodium [Voltaren] 1 appl TP TID PRN 03/23/17 [History] Lisinopril [Zestril] 20 mg PO DAILY 03/23/17 [History] Warfarin [Coumadin] 10 mg PO 1800 03/23/17 [History] 3 Allergy/AdvReac Type Severity Reaction Status Date / Time No Known Allergies Allergy Verified 02/18/17 16:01 All Systems PM: A 10-system review of systems was performed and is negative for pertinent findings except as documented above in the HPI. - Constitutional Constitutional: fatigue, fever(s), malaise, no chills, no night sweats - EENT Eyes: no change in vision, no discharge, no pain, no photophobia Nose, mouth and throat: no dysphagia, no nasal discharge, no neck pain, no sore throat - Cardiovascular Cardiovascular ROS IM: dyspnea, no chest pain, no diaphoresis, no lightheadedness, no palpitations, no syncope - Respiratory Respiratory: cough, dyspnea on exertion - Gastrointestinal Gastrointestinal: nausea, vomiting - Musculoskeletal Musculoskeletal ROS IM: no numbness, no tingling - Integumentary Integumentary IM: no rash, no unusual bruising - Neurological Neurological ROS: no confusion, no convulsions, no focal weakness, no numbness, no tingling, no tremor(s) - Hematologic/Lymphatic Hematologic/Lymphatic: no easy bruising - Constitutional Vitals: Temp Pulse Resp BP Pulse Ox 98.2 F 72 17 96/69 97 03/23/17 17:57 03/23/17 17:56 03/23/17 17:56 03/23/17 17:56 03/23/17 17:56 General appearance: Present: A&O X 3, morbidly obese - Head Head exam: Present: atraumatic, normocephalic - Eye Eye exam: Present: PERRL, conjuntiva pink, sclera anicteric Pupils: Present: PERRL - Respiratory Respiratory exam: Present: rhonchi, wheezes. Absent: accessory muscle use, rales - Cardiovascular Cardiovascular exam: Present: RRR, +S1, +S2. Absent: diastolic murmur, gallop, rubs, systolic murmur - GI/Abdominal GI/Abdominal exam: Present: normal bowel sounds, soft, no peritoneal signs. Absent: distended, tenderness - Extremities Exam Extremities exam: Present: warm, radial pulses palpable and symmetrical. Absent : calf tenderness, cyanotic, pedal edema - Neurological Exam Neurological exam: Present: CN II-XII intact, oriented X3, no focal deficits. Absent: pronater drift, facial droop, speech deficit - Skin Skin exam: Present: dry, intact Internal Med - H&P Results - Labs CBC & Chem 7: 03/23/17 14:35 03/23/17 14:35 Labs: Short CBC 03/23/17 Range/Units 14:35 WBC 7.1 (4.3-11.1) K/mcL Hgb 13.4 (12.9-16.9) g/dL Hct 41.0 (37.5-50.1) % Plt Count 210 (140-400) K/mcL Neutrophils # 2.4 (1.6-8.9) K/mcL BMP 03/23/17 14:35 Sodium 133 L Potassium 4.6 Chloride 100 Carbon Dioxide 26 BUN 18 Creatinine 1.69 H Glucose 110 H Calcium 8.9 Cardiac Enzymes 03/23/17 Range/Units 14:35 Troponin I < 0.03 (< 0.04) ng/mL - EKG Data EKG shows normal: sinus rhythm - Impressions ITS Impressions Chest CTA 03/23/17 14:30 IMPRESSION: Significantly limited evaluation of the pulmonary vasculature due to suboptimal opacification. No central pulmonary embolus. Subtle ground-glass nodular and tree-in-bud opacities within the right middle and lower lobes suggestive of infectious or inflammatory process. D/ / Panda Feliz MD / Panda Feliz MD Interpreting Provider: Panda Feliz MD Chest X-Ray 03/23/17 14:30 IMPRESSION: No acute process. D/ / Morgan Jha MD / Morgan Jha MD Interpreting Provider: Morgan Jha MD - Diagnostic Studies Other Images Additional comments: Chest CTA 03/23/17 14:30 IMPRESSION: Significantly limited evaluation of the pulmonary vasculature due to suboptimal opacification. No central pulmonary embolus. Subtle ground-glass nodular and tree-in-bud opacities within the right middle and lower lobes suggestive of infectious or inflammatory process. D/ / Panda Feliz MD / Panda Feliz MD Interpreting Provider: Panda Feliz MD Chest X-Ray 03/23/17 14:30 IMPRESSION: No acute process. D/ / Morgan Jha MD / Morgan Jha MD Interpreting Provider: Morgan Jha MD <Dario Mccall - Last Filed: 03/24/17 04:58> Date of Encounter: 03/24/17 Internal Medicine - H&P: HPI History of present illness: Mr. Oliva is a 57 year old male All Systems PM: A 10-system review of systems was performed and is negative for pertinent findings except as documented above in the HPI. - Constitutional Vitals: Temp Pulse Resp BP Pulse Ox 96.4 F L 65 20 134/79 98 03/24/17 03:16 03/24/17 03:16 03/24/17 03:43 03/24/17 03:16 03/24/17 03:43 Internal Med - H&P Results - Labs CBC & Chem 7: 03/24/17 02:00 03/24/17 02:00 Labs: Short CBC 03/24/17 Range/Units 02:00 WBC 2.8 L D (4.3-11.1) K/mcL Hgb 11.9 L D (12.9-16.9) g/dL Hct 37.2 L (37.5-50.1) % Plt Count 137 L (140-400) K/mcL Neutrophils # 1.9 (1.6-8.9) K/mcL BMP 03/24/17 02:00 Sodium 135 L Potassium 4.8 Chloride 106 Carbon Dioxide 21 L BUN 19 Creatinine 1.27 Glucose 142 H Calcium 7.8 L Cardiac Enzymes 03/23/17 03/24/17 Range/Units 19:54 02:00 Troponin I < 0.03 < 0.03 (< 0.04) ng/mL - ABG Interpretation ABG results: 03/24/17 00:18 ABG pH 7.29 L ABG pCO2 51 H ABG pO2 75 L ABG HCO3 24 ABG Total CO2 26 ABG O2 Saturation 93 L ABG Base Excess -3 L - Attending Attestation I have seen and examined pt independently. I have discussed with PRODUCTION CONTROL SCHEDULER Ms Moreland regarding the management plan. Agree with the documentation.
[2017-03-23] MEDS ORDERED: Albuterol 2.5 MG/3 ML NEBULIZER IH PRN (20:12)
[2017-03-23] MEDS: Ipratropium/Albuterol Neb 3 ML IH SCH ×2 (20:23→23:18)
[2017-03-23] MEDS: Budesonide/Formoterol 80/4.5 MDI IH SCH (20:23)
[2017-03-23 20:38] LABS: INR 1.5; Prothrombin Time 16.4 Seconds (9.4-12.1)
[2017-03-23] MEDS ORDERED: *HR* Warfarin 5 MG TABLET PO STA (21:09)
[2017-03-24 00:26] LABS: ABG Base Excess -3 mEq/L (-2 to 3); ABG HCO3 24 mEq/L (21-27); ABG Oxygen Saturation 93 % (95-98); ABG PCO2 51 mmHg (35-45); ABG PH 7.29 pH Units (7.32-7.45); ABG PO2 75 mmHg (85-104); ABG TCO2 26 mEq/L (20-26)
[2017-03-24 02:11] LABS: Hematocrit 37.2 % (37.5-50.1); Hemoglobin 11.9 g/dL (12.9-16.9); Immature Granulocytes % 0.4 % (0-4); Lymphocytes # 0.7 K/mcL (0.6-4.6); Lymphocytes % 24.2 %; Mean Corpuscular Hemoglobin 30.8 pg (28.0-33.3); Mean Corpuscular Volume 96.4 fL (83.0-100.0); Mean Platelet Volume 9.1 fL (9.4-12.4); Monocytes # 0.2 K/mcL (0.0-1.3); Monocytes % 8.7 %; Neutrophils # 1.9 K/mcL (1.6-8.9); Platelet Count 137 K/mcL (140-400); Red Blood Count 3.86 M/mcL (4.19-5.50); Red Cell Distribution Width 13.6 % (11.5-14.5); Segmented Neutrophils % 66.7 %
[2017-03-24 02:16] LABS: INR 1.5; Prothrombin Time 16.6 Seconds (9.4-12.1)
[2017-03-24 02:24] LABS: BUN/Creatinine Ratio 15 (6-26); Blood Urea Nitrogen 19 mg/dL (6-20); Calcium 7.8 mg/dL (8.6-10.3); Carbon Dioxide 21 mEq/L (23-29); Chloride 106 mEq/L (98-107); Glucose 142 mg/dL (70-105); Osmolality,Calculated 285 (280-300); Potassium 4.8 mEq/L (3.5-5.1); Sodium 135 mEq/L (136-145); eGFR For African Americans > 60 (> 60); eGFR For Non-African Americans 59 (> 60)
[2017-03-24] MEDS: Vancomycin 1,750 MG in D5% in Water 500 ML IVPB SCH ×2 (02:25→10:21)
[2017-03-24] MEDS: methylPREDNISolone 125 MG/2 ML VIAL IVP SCH ×4 (02:26→23:12)
[2017-03-24] MEDS: *HR* HYDROcodone/Acet 5/325 mg TABLET PO PRN ×3 (03:16→22:34)
[2017-03-24] MEDS: Ipratropium/Albuterol Neb 3 ML IH SCH ×5 (03:40→20:19)
[2017-03-24] MEDS: Piperacillin/Tazobactam 3.375 GM/200 ML BAG IVPB SCH ×3 (06:35→16:04)
[2017-03-24] MEDS: Budesonide/Formoterol 80/4.5 MDI IH SCH ×2 (07:45→20:19)
[2017-03-24] MEDS: GuaiFENesin/Codeine Oral Soln 5 ML UDC PO PRN ×2 (16:03→23:12)
[2017-03-24] MEDS ORDERED: *HR* Warfarin 5 MG TABLET PO ONE (18:00)
[2017-03-24] MEDS ORDERED: Warfarin perPT PO PRN (18:00)
[2017-03-24] MEDS ORDERED: *HR* Warfarin 10 MG TABLET PO SCH (18:00)
--- NOTE | 2017-03-24 18:43 | Internal Med Progress Note ---
Date of Encounter: 03/26/17 Time of Encounter: 18:43 - Assessment and plan (1) Acute respiratory failure with hypoxia Current Visit: Yes Status: Acute Assessment and plan: 57/male Multiple medical comorbidities. Admitted with worsening hypoxic respiratory failure. Noted that patient is on intravenous antibiotics/intravenous steroids and inhaled bronchodilators. Patient is still using accessory muscles of respiration. On room air patient's saturation is within acceptable range. Plan: We will continue to monitor closely patient's respiratory status. We will continue at this point antibiotics/steroids/bronchodilators (2) Pneumonia Current Visit: No Status: Acute Assessment and plan: Vancomycin: day 2 Zosyn: Day 2 Blood culture: No growth so far Plan: Will continue antibiotics for 1 more day Qualifiers: Pneumonia type: due to unspecified organism Laterality: right Lung location: unspecified part of lung Qualified Code(s): J18.9 - Pneumonia, unspecified organism (3) Influenza A Current Visit: Yes Status: Acute Assessment and plan: Patient is positive for influenza A. Tamiflu started. Close observation of respiratory status. (4) RITIKA (acute kidney injury) Current Visit: Yes Status: Acute Assessment and plan: Improving acute kidney injury. - Subjective Interval history: patient seen and examined. chart reviewed. Patient is comfortably lying in the bed. Patient complaining of cough along with the shortness of breath. Patient complaints of chest pain when he coughs. We will monitor the respiratory status very closely. - Constitutional Vitals: Temp Pulse Resp BP Pulse Ox 97.4 F L 83 20 116/64 96 03/24/17 10:49 03/24/17 15:48 03/24/17 15:48 03/24/17 15:48 03/24/17 15:48 General appearance: Present: A&O X 3, morbidly obese - Head Head exam: Present: atraumatic, normocephalic - Eye Eye exam: Present: PERRL, conjuntiva pink, sclera anicteric Pupils: Present: PERRL - Neck Neck exam general surgery: Present: supple, trachea midline. Absent: lymphadenopathy - Respiratory Respiratory exam: Present: CTAB. Absent: accessory muscle use, rales, rhonchi, wheezes - Cardiovascular Cardiovascular exam: Present: RRR, +S1, +S2. Absent: diastolic murmur, gallop, rubs, systolic murmur - GI/Abdominal GI/Abdominal exam: Present: normal bowel sounds, soft, no peritoneal signs. Absent: distended, tenderness - Extremities Exam Extremities exam: Present: warm, radial pulses palpable and symmetrical. Absent : calf tenderness, cyanotic, pedal edema - Neurological Exam Neurological exam: Present: CN II-XII intact, oriented X3, no focal deficits. Absent: pronater drift, facial droop, speech deficit - Skin Skin exam: Present: dry, intact Internal Medicine: Result - Labs CBC & Chem 7: 03/26/17 03:16 03/26/17 03:16 Labs: Short CBC 03/24/17 Range/Units 02:00 WBC 2.8 L D (4.3-11.1) K/mcL Hgb 11.9 L D (12.9-16.9) g/dL Hct 37.2 L (37.5-50.1) % Plt Count 137 L (140-400) K/mcL Neutrophils # 1.9 (1.6-8.9) K/mcL BMP 03/24/17 02:00 Sodium 135 L Potassium 4.8 Chloride 106 Carbon Dioxide 21 L BUN 19 Creatinine 1.27 Glucose 142 H Calcium 7.8 L Cardiac Enzymes 03/23/17 03/24/17 Range/Units 19:54 02:00 Troponin I < 0.03 < 0.03 (< 0.04) ng/mL - ABG Interpretation ABG results: ABG ABG pH 7.29 pH Units (7.32-7.45) L 03/24/17 00:18 ABG pCO2 51 mmHg (35-45) H 03/24/17 00:18 ABG pO2 75 mmHg (85-104) L 03/24/17 00:18 ABG O2 Saturation 93 % (95-98) L 03/24/17 00:18 PT/INR, D-dimer PT 16.6 Seconds (9.4-12.1) H 03/24/17 02:00 Consult Discharge Plan - Plan Referrals: Celso Simpson MD [Primary Care Provider] -
--- NOTE | 2017-03-24 19:19 | Electrocardiograph Report ---
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
[2017-03-24] MEDS: 0.9 % Sodium Chloride 1,000 ML IVC SCH (20:33)
[2017-03-24] MEDS ORDERED: (Diclofenac Sodium [Voltaren] 1 APPL) TP PRN (21:27)
[2017-03-24] MEDS: Gabapentin 300 MG CAPSULE PO SCH (22:34)
[2017-03-24] MEDS: ALPRAZolam 1 MG TABLET PO PRN (22:34)
[2017-03-25] MEDS: Ipratropium/Albuterol Neb 3 ML IH SCH ×6 (00:17→20:03)
[2017-03-25] MEDS: Piperacillin/Tazobactam 3.375 GM/200 ML BAG IVPB SCH ×4 (00:19→23:44)
[2017-03-25 05:16] LABS: INR 2.9; Prothrombin Time 31.9 Seconds (9.4-12.1)
[2017-03-25] MEDS: GuaiFENesin/Codeine Oral Soln 5 ML UDC PO PRN ×3 (06:10→23:18)
[2017-03-25] MEDS: *HR* HYDROcodone/Acet 5/325 mg TABLET PO PRN ×2 (06:11→11:52)
[2017-03-25] MEDS: Budesonide/Formoterol 80/4.5 MDI IH SCH ×2 (08:24→20:03)
[2017-03-25] MEDS: Gabapentin 300 MG CAPSULE PO SCH ×3 (09:47→20:08)
[2017-03-25] MEDS: methylPREDNISolone 125 MG/2 ML VIAL IVP SCH ×3 (09:48→23:18)
[2017-03-25] MEDS: tiZANidine 4 MG TABLET PO PRN (14:09)
[2017-03-25] MEDS: *HR* OxyCODONE/APAP 5/325 TABLET PO PRN ×2 (17:39→23:44)
--- NOTE | 2017-03-25 18:20 | Internal Med Progress Note ---
Date of Encounter: 03/26/17 Time of Encounter: 18:20 - Assessment and plan (1) Acute respiratory failure with hypoxia Current Visit: Yes Status: Acute Assessment and plan: 57/male Multiple medical comorbidities. Admitted with worsening hypoxic respiratory failure. Noted that patient is on intravenous antibiotics/intravenous steroids and inhaled bronchodilators. Patient is still using accessory muscles of respiration. On room air patient's saturation is within acceptable range. Plan: We will continue to monitor closely patient's respiratory status. We will continue at this point antibiotics/steroids/bronchodilators 03/25/2017 Clinically patient has improved. He is occasionally using accessory muscles of respiration. Lungs sounds bilaterally equal. Patient still has occasional wheezes. Plan: Continue present treatment. Blood cultures still pending. (2) Influenza A Current Visit: Yes Status: Acute Assessment and plan: Patient is positive for influenza A. Tamiflu started. Close observation of respiratory status. 03/25/2017. Continue Tamiflu. (3) RITIKA (acute kidney injury) Current Visit: Yes Status: Acute Assessment and plan: Improving acute kidney injury. 03/25/2017. Completely recovered from acute kidney injury. (4) Pneumonia Current Visit: No Status: Acute Assessment and plan: Vancomycin: day 2 Zosyn: Day 2 Blood culture: No growth so far Plan: Will continue antibiotics for 1 more day 03/25/2017. Blood cultures still no growth so far. We will continue antibiotics today. Close monitoring of respiratory status Qualifiers: Pneumonia type: due to unspecified organism Laterality: right Lung location: unspecified part of lung Qualified Code(s): J18.9 - Pneumonia, unspecified organism (5) HTN (hypertension) Current Visit: No Status: Chronic Assessment and plan: Within acceptable range Qualifiers: Hypertension type: essential hypertension Qualified Code(s): I10 - Essential (primary) hypertension - Subjective Interval history: I have examined this patient along with the patient's RN. Patient is comfortably lying in the bed. Patient has occasional cough and he is asking for a cough medication along with the pain medication. We will try to monitor his respiratory status very closely. - Constitutional Vitals: Temp Pulse Resp BP Pulse Ox 97.0 F L 86 16 134/78 95 03/25/17 17:05 03/25/17 17:05 03/25/17 17:11 03/25/17 17:05 03/25/17 17:40 General appearance: Present: A&O X 3, morbidly obese - Head Head exam: Present: atraumatic, normocephalic - Eye Eye exam: Present: PERRL, conjuntiva pink, sclera anicteric Pupils: Present: PERRL - Neck Neck exam general surgery: Present: supple, trachea midline. Absent: lymphadenopathy - Respiratory Respiratory exam: Present: CTAB. Absent: accessory muscle use, rales, rhonchi, wheezes - Cardiovascular Cardiovascular exam: Present: RRR, +S1, +S2. Absent: diastolic murmur, gallop, rubs, systolic murmur - GI/Abdominal GI/Abdominal exam: Present: normal bowel sounds, soft, no peritoneal signs. Absent: distended, tenderness - Extremities Exam Extremities exam: Present: warm, radial pulses palpable and symmetrical. Absent : calf tenderness, cyanotic, pedal edema - Neurological Exam Neurological exam: Present: CN II-XII intact, oriented X3, no focal deficits. Absent: pronater drift, facial droop, speech deficit - Skin Skin exam: Present: dry, intact Internal Medicine: Result - Labs CBC & Chem 7: 03/26/17 03:16 03/26/17 03:16 - ABG Interpretation ABG results: ABG ABG pH 7.29 pH Units (7.32-7.45) L 03/24/17 00:18 ABG pCO2 51 mmHg (35-45) H 03/24/17 00:18 ABG pO2 75 mmHg (85-104) L 03/24/17 00:18 ABG O2 Saturation 93 % (95-98) L 03/24/17 00:18 PT/INR, D-dimer PT 31.9 Seconds (9.4-12.1) H D 03/25/17 04:09 Consult Discharge Plan - Plan Referrals: Celso Simpson MD [Primary Care Provider] -
[2017-03-25] MEDS: Vancomycin 1,500 MG in D5% in Water 250 ML IVPB SCH (20:11)
[2017-03-25] MEDS: ALPRAZolam 1 MG TABLET PO PRN (23:18)
[2017-03-26] MEDS: Ipratropium/Albuterol Neb 3 ML IH SCH ×7 (00:03→23:54)
[2017-03-26 03:36] LABS: Hematocrit 35.2 % (37.5-50.1); Hemoglobin 11.5 g/dL (12.9-16.9); Immature Granulocytes % 0.7 % (0-4); Lymphocytes # 0.6 K/mcL (0.6-4.6); Lymphocytes % 7.8 %; Mean Corpuscular HGB Conc 32.7 g/dL (31.6-35.5); Mean Corpuscular Hemoglobin 30.8 pg (28.0-33.3); Mean Corpuscular Volume 94.4 fL (83.0-100.0); Mean Platelet Volume 9.5 fL (9.4-12.4); Monocytes # 0.4 K/mcL (0.0-1.3); Monocytes % 5.9 %; Neutrophils # 6.4 K/mcL (1.6-8.9); Platelet Count 181 K/mcL (140-400); Red Blood Count 3.73 M/mcL (4.19-5.50); Red Cell Distribution Width 13.5 % (11.5-14.5); Segmented Neutrophils % 85.6 %
[2017-03-26 03:49] LABS: INR 3.7; Prothrombin Time 41.5 Seconds (9.4-12.1)
[2017-03-26 03:59] LABS: Alanine Aminotransferase 20 Units/L (7-52); Albumin 3.2 g/dL (3.5-5.7); Albumin/Globulin Ratio 1.1 (1.1-2.2); Alkaline Phosphatase 38 Units/L (34-104); Aspartate Amino Transferase 15 Units/L (13-39); BUN/Creatinine Ratio 16 (6-26); Bilirubin,Total 0.2 mg/dL (0.3-1.0); Blood Urea Nitrogen 15 mg/dL (6-20); Calcium 8.4 mg/dL (8.6-10.3); Carbon Dioxide 25 mEq/L (23-29); Chloride 104 mEq/L (98-107); Globulin 2.9 g/dL (2.4-3.5); Glucose 229 mg/dL (70-105); Osmolality,Calculated 288 (280-300); Potassium 4.7 mEq/L (3.5-5.1); Sodium 135 mEq/L (136-145); Total Protein 6.1 g/dL (6.4-8.9); eGFR For African Americans > 60 (> 60); eGFR For Non-African Americans > 60 (> 60)
[2017-03-26] MEDS: Budesonide/Formoterol 80/4.5 MDI IH SCH ×2 (08:00→19:50)
[2017-03-26] MEDS ORDERED: Aminoglycoside Consult 1 EACH MC ONE (08:02)
[2017-03-26] MEDS: GuaiFENesin/Codeine Oral Soln 5 ML UDC PO PRN ×2 (09:21→16:20)
[2017-03-26] MEDS: methylPREDNISolone 125 MG/2 ML VIAL IVP SCH ×3 (09:21→23:15)
[2017-03-26] MEDS: Gabapentin 300 MG CAPSULE PO SCH ×3 (09:22→20:23)
[2017-03-26] MEDS: *HR* OxyCODONE/APAP 5/325 TABLET PO PRN ×2 (09:22→16:21)
[2017-03-26] MEDS: Piperacillin/Tazobactam 3.375 GM/200 ML BAG IVPB SCH ×3 (13:15→23:37)
[2017-03-26] MEDS: Vancomycin 1,500 MG in D5% in Water 250 ML IVPB SCH (13:28)
--- NOTE | 2017-03-26 18:32 | Internal Med Progress Note ---
Date of Encounter: 03/26/17 Time of Encounter: 18:30 - Assessment and plan (1) Acute respiratory failure with hypoxia Current Visit: Yes Status: Acute Assessment and plan: 57/male Multiple medical comorbidities. Admitted with worsening hypoxic respiratory failure. Noted that patient is on intravenous antibiotics/intravenous steroids and inhaled bronchodilators. Patient is still using accessory muscles of respiration. On room air patient's saturation is within acceptable range. Plan: We will continue to monitor closely patient's respiratory status. We will continue at this point antibiotics/steroids/bronchodilators 03/25/2017 Clinically patient has improved. He is occasionally using accessory muscles of respiration. Lungs sounds bilaterally equal. Patient still has occasional wheezes. Plan: Continue present treatment. Blood cultures still pending. 03/26/2014 Patient did not show any further improvement clinically. This was as compared to yesterday. Occasional wheezes heard on auscultation. Plan: We will get x-ray chest to use. Close monitoring of the patient respiratory said (2) Influenza A Current Visit: Yes Status: Acute Assessment and plan: Patient is positive for influenza A. Tamiflu started. Close observation of respiratory status. 03/25/2017. Continue Tamiflu. 03/26/2017 Tamiflu : Day 4 (3) RITIKA (acute kidney injury) Current Visit: Yes Status: Acute Assessment and plan: Improving acute kidney injury. 03/25/2017. Completely recovered from acute kidney injury. 03/26/2079 Completely resolved acute kidney injury (4) Pneumonia Current Visit: No Status: Acute Assessment and plan: Vancomycin: day 2 Zosyn: Day 2 Blood culture: No growth so far Plan: Will continue antibiotics for 1 more day 03/25/2017. Blood cultures still no growth so far. We will continue antibiotics today. Close monitoring of respiratory status 03/26/2017 Blood cultures negative so far. More than 48 hours blood culture is negative. Plan: We will discontinue vancomycin. We will continue Zosyn/steroids/bronchodilators. Qualifiers: Pneumonia type: due to unspecified organism Laterality: right Lung location: unspecified part of lung Qualified Code(s): J18.9 - Pneumonia, unspecified organism (5) HTN (hypertension) Current Visit: No Status: Chronic Assessment and plan: Within acceptable range Qualifiers: Hypertension type: essential hypertension Qualified Code(s): I10 - Essential (primary) hypertension - Subjective Interval history: I have examined this patient along with the patient's RN. Patient is comfortably lying in the bed. Patient has occasional cough and he is asking for a cough medication along with the pain medication. We will try to monitor his respiratory status very closely. 03/26/2017. Patient has occasional respiratory distress. He is complaining of cough. Patient denies chest pain, nausea, vomiting, abdominal pain, dizziness or diarrhea. - Constitutional Vitals: Temp Pulse Resp BP Pulse Ox 97.9 F 72 18 150/72 97 03/26/17 15:57 03/26/17 15:57 03/26/17 15:57 03/26/17 15:57 03/26/17 15:57 General appearance: Present: A&O X 3, morbidly obese Internal Medicine: Result - Labs CBC & Chem 7: 03/26/17 03:16 03/26/17 03:16 Labs: Short CBC 03/26/17 Range/Units 03:16 WBC 7.5 D (4.3-11.1) K/mcL Hgb 11.5 L (12.9-16.9) g/dL Hct 35.2 L (37.5-50.1) % Plt Count 181 (140-400) K/mcL Neutrophils # 6.4 (1.6-8.9) K/mcL BMP 03/26/17 03:16 Sodium 135 L Potassium 4.7 Chloride 104 Carbon Dioxide 25 BUN 15 Creatinine 0.95 Glucose 229 H Calcium 8.4 L Liver Function 03/26/17 Range/Units 03:16 Total Bilirubin 0.2 L (0.3-1.0) mg/dL AST 15 (13-39) Units/L ALT 20 (7-52) Units/L Alkaline Phosphatase 38 (34-104) Units/L Albumin 3.2 L (3.5-5.7) g/dL - ABG Interpretation ABG results: ABG ABG pH 7.29 pH Units (7.32-7.45) L 03/24/17 00:18 ABG pCO2 51 mmHg (35-45) H 03/24/17 00:18 ABG pO2 75 mmHg (85-104) L 03/24/17 00:18 ABG O2 Saturation 93 % (95-98) L 03/24/17 00:18 PT/INR, D-dimer PT 41.5 Seconds (9.4-12.1) H 03/26/17 03:16 Consult Discharge Plan - Plan Referrals: Celso Simpson MD [Primary Care Provider] -
[2017-03-27] MEDS: GuaiFENesin/Codeine Oral Soln 5 ML UDC PO PRN ×3 (02:29→18:59)
[2017-03-27] MEDS: *HR* OxyCODONE/APAP 5/325 TABLET PO PRN ×3 (02:45→18:59)
[2017-03-27] MEDS: Ipratropium/Albuterol Neb 3 ML IH SCH ×6 (03:43→23:42)
[2017-03-27] MEDS: Piperacillin/Tazobactam 3.375 GM/200 ML BAG IVPB SCH ×3 (05:06→23:59)
[2017-03-27 05:12] LABS: Basophils % 0.4 %; Hematocrit 36.3 % (37.5-50.1); Hemoglobin 11.7 g/dL (12.9-16.9); Immature Granulocytes % 3.1 % (0-4); Lymphocytes # 0.8 K/mcL (0.6-4.6); Lymphocytes % 11.2 %; Mean Corpuscular HGB Conc 32.2 g/dL (31.6-35.5); Mean Corpuscular Hemoglobin 30.3 pg (28.0-33.3); Mean Platelet Volume 9.5 fL (9.4-12.4); Monocytes # 0.5 K/mcL (0.0-1.3); Monocytes % 6.7 %; Neutrophils # 5.9 K/mcL (1.6-8.9); Platelet Count 197 K/mcL (140-400); Red Blood Count 3.86 M/mcL (4.19-5.50); Red Cell Distribution Width 13.6 % (11.5-14.5); Segmented Neutrophils % 78.6 %
[2017-03-27] MEDS: ALPRAZolam 1 MG TABLET PO PRN (05:15)
[2017-03-27 05:24] LABS: Alanine Aminotransferase 59 Units/L (7-52); Albumin 3.3 g/dL (3.5-5.7); Albumin/Globulin Ratio 1.2 (1.1-2.2); Alkaline Phosphatase 40 Units/L (34-104); Aspartate Amino Transferase 32 Units/L (13-39); BUN/Creatinine Ratio 19 (6-26); Bilirubin,Total 0.2 mg/dL (0.3-1.0); Blood Urea Nitrogen 18 mg/dL (6-20); Calcium 8.7 mg/dL (8.6-10.3); Carbon Dioxide 27 mEq/L (23-29); Chloride 102 mEq/L (98-107); Globulin 2.7 g/dL (2.4-3.5); Glucose 260 mg/dL (70-105); Osmolality,Calculated 289 (280-300); Potassium 4.7 mEq/L (3.5-5.1); Sodium 134 mEq/L (136-145); eGFR For African Americans > 60 (> 60); eGFR For Non-African Americans > 60 (> 60)
[2017-03-27] MEDS: Budesonide/Formoterol 80/4.5 MDI IH SCH ×2 (08:03→19:59)
[2017-03-27] MEDS: methylPREDNISolone 125 MG/2 ML VIAL IVP SCH ×2 (09:07→18:59)
[2017-03-27] MEDS: Gabapentin 300 MG CAPSULE PO SCH ×3 (09:08→21:28)
[2017-03-27 11:07] LABS: INR 2.4; Prothrombin Time 26.8 Seconds (9.4-12.1)
--- NOTE | 2017-03-27 17:47 | Internal Med Progress Note ---
Date of Encounter: 03/27/17 Time of Encounter: 17:45 - Assessment and plan (1) Acute respiratory failure with hypoxia Current Visit: Yes Status: Acute Assessment and plan: 57/male Multiple medical comorbidities. Admitted with worsening hypoxic respiratory failure. Noted that patient is on intravenous antibiotics/intravenous steroids and inhaled bronchodilators. Patient is still using accessory muscles of respiration. On room air patient's saturation is within acceptable range. Plan: We will continue to monitor closely patient's respiratory status. We will continue at this point antibiotics/steroids/bronchodilators 03/25/2017 Clinically patient has improved. He is occasionally using accessory muscles of respiration. Lungs sounds bilaterally equal. Patient still has occasional wheezes. Plan: Continue present treatment. Blood cultures still pending. 03/26/2017 Patient did not show any further improvement clinically. This was as compared to yesterday. Occasional wheezes heard on auscultation. Plan: We will get x-ray chest to use. Close monitoring of the patient respiratory said 03/27/2017 X-ray chest: Left lower lobe pneumonia. Patient presently on Zosyn/levofloxacin. Day 4 Vancomycin discontinued as blood cultures were negative. Influenza A positive: Patient on Tamiflu We will continue present treatment for now. Home Soon (2) Influenza A Current Visit: Yes Status: Acute Assessment and plan: Patient is positive for influenza A. Tamiflu started. Close observation of respiratory status. 03/25/2017. Continue Tamiflu. 03/26/2017 Tamiflu : Day 4 (3) RITIKA (acute kidney injury) Current Visit: Yes Status: Acute Assessment and plan: Improving acute kidney injury. 03/25/2017. Completely recovered from acute kidney injury. 03/26/2079 Completely resolved acute kidney injury (4) Pneumonia Current Visit: No Status: Acute Assessment and plan: Vancomycin: day 2 Zosyn: Day 2 Blood culture: No growth so far Plan: Will continue antibiotics for 1 more day 03/25/2017. Blood cultures still no growth so far. We will continue antibiotics today. Close monitoring of respiratory status 03/26/2017 Blood cultures negative so far. More than 48 hours blood culture is negative. Plan: We will discontinue vancomycin. We will continue Zosyn/steroids/bronchodilators. Qualifiers: Pneumonia type: due to unspecified organism Laterality: right Lung location: unspecified part of lung Qualified Code(s): J18.9 - Pneumonia, unspecified organism (5) HTN (hypertension) Current Visit: No Status: Chronic Assessment and plan: Within acceptable range Qualifiers: Hypertension type: essential hypertension Qualified Code(s): I10 - Essential (primary) hypertension - Subjective Interval history: I have examined this patient along with the patient's RN. Patient is comfortably lying in the bed. Patient has occasional cough and he is asking for a cough medication along with the pain medication. We will try to monitor his respiratory status very closely. 03/26/2017. Patient has occasional respiratory distress. He is complaining of cough. Patient denies chest pain, nausea, vomiting, abdominal pain, dizziness or diarrhea. 03/27/2017. Patient seen and examined. Chart reviewed. Patient is complaining of occasional cough. Patient claims he is getting better. - Constitutional Vitals: Temp Pulse Resp BP Pulse Ox 97.9 F 79 18 159/85 97 03/27/17 11:33 03/27/17 11:33 03/27/17 11:33 03/27/17 11:33 03/27/17 11:33 General appearance: Present: A&O X 3, morbidly obese - Head Head exam: Present: atraumatic, normocephalic - Eye Eye exam: Present: PERRL, conjuntiva pink, sclera anicteric Pupils: Present: PERRL - Neck Neck exam general surgery: Present: supple, trachea midline. Absent: lymphadenopathy - Respiratory Respiratory exam: Present: CTAB. Absent: accessory muscle use, rales, rhonchi, wheezes - Cardiovascular Cardiovascular exam: Present: RRR, +S1, +S2. Absent: diastolic murmur, gallop, rubs, systolic murmur - GI/Abdominal GI/Abdominal exam: Present: normal bowel sounds, soft, no peritoneal signs. Absent: distended, tenderness - Extremities Exam Extremities exam: Present: warm, radial pulses palpable and symmetrical. Absent : calf tenderness, cyanotic, pedal edema - Neurological Exam Neurological exam: Present: CN II-XII intact, oriented X3, no focal deficits. Absent: pronater drift, facial droop, speech deficit - Skin Skin exam: Present: dry, intact Internal Medicine: Result - Labs CBC & Chem 7: 03/27/17 04:54 03/27/17 04:54 Labs: Short CBC 03/27/17 Range/Units 04:54 WBC 7.5 (4.3-11.1) K/mcL Hgb 11.7 L (12.9-16.9) g/dL Hct 36.3 L (37.5-50.1) % Plt Count 197 (140-400) K/mcL Neutrophils # 5.9 (1.6-8.9) K/mcL BMP 03/27/17 04:54 Sodium 134 L Potassium 4.7 Chloride 102 Carbon Dioxide 27 BUN 18 Creatinine 0.93 Glucose 260 H Calcium 8.7 Liver Function 03/27/17 Range/Units 04:54 Total Bilirubin 0.2 L (0.3-1.0) mg/dL AST 32 (13-39) Units/L ALT 59 H (7-52) Units/L Alkaline Phosphatase 40 (34-104) Units/L Albumin 3.3 L (3.5-5.7) g/dL - ABG Interpretation ABG results: ABG ABG pH 7.29 pH Units (7.32-7.45) L 03/24/17 00:18 ABG pCO2 51 mmHg (35-45) H 03/24/17 00:18 ABG pO2 75 mmHg (85-104) L 03/24/17 00:18 ABG O2 Saturation 93 % (95-98) L 03/24/17 00:18 PT/INR, D-dimer PT 26.8 Seconds (9.4-12.1) H 03/27/17 10:33 - Impressions Impressions Chest X-Ray 03/26/17 18:18 IMPRESSION: Patchy left basilar opacity, atelectasis versus pneumonia. Possible small right pleural effusion. D/ / Miles Ratliff MD / Miles Ratliff MD Interpreting Provider: Miles Ratliff MD Consult Discharge Plan - Plan Referrals: Celso Simpson MD [Primary Care Provider] -
[2017-03-27] MEDS ORDERED: *HR* Warfarin 2.5 MG TABLET PO ONE (18:00)
[2017-03-27] MEDS: tiZANidine 4 MG TABLET PO PRN (21:34)
[2017-03-28] MEDS: GuaiFENesin/Codeine Oral Soln 5 ML UDC PO PRN ×3 (01:00→20:13)
[2017-03-28] MEDS: methylPREDNISolone 125 MG/2 ML VIAL IVP SCH ×3 (01:00→17:11)
[2017-03-28] MEDS: *HR* OxyCODONE/APAP 5/325 TABLET PO PRN ×3 (01:00→18:21)
[2017-03-28] MEDS: ALPRAZolam 1 MG TABLET PO PRN (01:01)
[2017-03-28] MEDS: Ipratropium/Albuterol Neb 3 ML IH SCH ×7 (03:24→23:50)
[2017-03-28 05:56] LABS: Basophils # 0.1 K/mcL (0.0-0.2); Basophils % 0.8 %; Hematocrit 37.3 % (37.5-50.1); Hemoglobin 12.3 g/dL (12.9-16.9); Immature Granulocytes % 6.7 % (0-4); Lymphocytes # 1.2 K/mcL (0.6-4.6); Mean Corpuscular Hemoglobin 31.1 pg (28.0-33.3); Mean Corpuscular Volume 94.2 fL (83.0-100.0); Mean Platelet Volume 9.7 fL (9.4-12.4); Monocytes # 0.7 K/mcL (0.0-1.3); Monocytes % 7.3 %; Neutrophils # 7.3 K/mcL (1.6-8.9); Nucleated Red Blood Cells 0.3 /100 WBC (0); Platelet Count 221 K/mcL (140-400); Red Blood Count 3.96 M/mcL (4.19-5.50); Red Cell Distribution Width 13.8 % (11.5-14.5); Segmented Neutrophils % 73.2 %
[2017-03-28 06:02] LABS: INR 2.3; Prothrombin Time 25.5 Seconds (9.4-12.1)
[2017-03-28 06:04] LABS: Alanine Aminotransferase 54 Units/L (7-52); Albumin 3.3 g/dL (3.5-5.7); Albumin/Globulin Ratio 1.3 (1.1-2.2); Alkaline Phosphatase 40 Units/L (34-104); Aspartate Amino Transferase 19 Units/L (13-39); BUN/Creatinine Ratio 21 (6-26); Bilirubin,Total 0.2 mg/dL (0.3-1.0); Blood Urea Nitrogen 19 mg/dL (6-20); Carbon Dioxide 28 mEq/L (23-29); Chloride 101 mEq/L (98-107); Globulin 2.6 g/dL (2.4-3.5); Glucose 203 mg/dL (70-105); Osmolality,Calculated 288 (280-300); Potassium 4.8 mEq/L (3.5-5.1); Sodium 135 mEq/L (136-145); Total Protein 5.9 g/dL (6.4-8.9); eGFR For African Americans > 60 (> 60); eGFR For Non-African Americans > 60 (> 60)
[2017-03-28] MEDS: Piperacillin/Tazobactam 3.375 GM/200 ML BAG IVPB SCH ×2 (06:11→12:25)
[2017-03-28] MEDS: Budesonide/Formoterol 80/4.5 MDI IH SCH ×2 (08:06→19:49)
[2017-03-28] MEDS: Gabapentin 300 MG CAPSULE PO SCH ×3 (09:47→20:13)
[2017-03-28] MEDS: Ampicillin/Sulbactam 3,000 MG in 0.9 % Sodium Chloride Mini Bag 100 ML IVPB SCH (17:16)
[2017-03-28] MEDS ORDERED: *HR* Warfarin 2.5 MG TABLET PO ONE (18:00)
[2017-03-28] MEDS: tiZANidine 4 MG TABLET PO PRN (20:13)
[2017-03-29] MEDS: methylPREDNISolone 125 MG/2 ML VIAL IVP SCH ×4 (00:46→17:29)
[2017-03-29] MEDS: *HR* OxyCODONE/APAP 5/325 TABLET PO PRN ×4 (00:46→20:08)
[2017-03-29] MEDS: ALPRAZolam 1 MG TABLET PO PRN (00:46)
[2017-03-29] MEDS: Ampicillin/Sulbactam 3,000 MG in 0.9 % Sodium Chloride Mini Bag 100 ML IVPB SCH ×4 (00:46→17:28)
[2017-03-29] MEDS: GuaiFENesin/Codeine Oral Soln 5 ML UDC PO PRN ×3 (02:07→20:21)
[2017-03-29] MEDS: Ipratropium/Albuterol Neb 3 ML IH SCH ×5 (03:44→20:14)
[2017-03-29 05:41] LABS: Basophils % 0.1 %; Hematocrit 37.4 % (37.5-50.1); Hemoglobin 12.1 g/dL (12.9-16.9); Immature Granulocytes % 12.3 % (0-4); Lymphocytes # 1.1 K/mcL (0.6-4.6); Lymphocytes % 9.2 %; Mean Corpuscular HGB Conc 32.4 g/dL (31.6-35.5); Mean Corpuscular Hemoglobin 30.4 pg (28.0-33.3); Mean Platelet Volume 9.5 fL (9.4-12.4); Monocytes # 0.9 K/mcL (0.0-1.3); Monocytes % 7.8 %; Neutrophils # 8.3 K/mcL (1.6-8.9); Nucleated Red Blood Cells 0.4 /100 WBC (0); Platelet Count 258 K/mcL (140-400); Red Blood Count 3.98 M/mcL (4.19-5.50); Red Cell Distribution Width 13.6 % (11.5-14.5); Segmented Neutrophils % 70.6 %
[2017-03-29 05:45] LABS: INR 2.5; Prothrombin Time 27.4 Seconds (9.4-12.1)
[2017-03-29 06:05] LABS: BUN/Creatinine Ratio 23 (6-26); Blood Urea Nitrogen 22 mg/dL (6-20); Calcium 8.7 mg/dL (8.6-10.3); Carbon Dioxide 25 mEq/L (23-29); Chloride 99 mEq/L (98-107); Glucose 305 mg/dL (70-105); Magnesium 2.3 mg/dL (1.6-2.6); Osmolality,Calculated 293 (280-300); Potassium 4.7 mEq/L (3.5-5.1); Sodium 134 mEq/L (136-145); eGFR For African Americans > 60 (> 60); eGFR For Non-African Americans > 60 (> 60)
[2017-03-29 06:43] LABS: Platelet Estimate Normal (Normal)
[2017-03-29] MEDS: Gabapentin 300 MG CAPSULE PO SCH ×3 (07:38→20:08)
[2017-03-29] MEDS: Budesonide/Formoterol 80/4.5 MDI IH SCH ×2 (08:21→20:14)
--- NOTE | 2017-03-29 10:26 | Internal Med Progress Note ---
Date of Encounter: 03/28/17 Time of Encounter: 17:00 - Assessment and plan (1) Influenza A Current Visit: Yes Status: Acute Assessment and plan: Influenza antigen testing positive for influenza A. Completed a course of Tamiflu. Continue supportive care with supplemental oxygen, antitussives, IV hydration. (2) HCAP (healthcare-associated pneumonia) Current Visit: Yes Status: Acute Assessment and plan: Patient was recently discharged from our hospital after being treated for pneumonia. CT angiogram of chest during this admission showed no PE, right middle and lower lobe infectious process. Has been started on broad-spectrum antibiotics-vancomycin and Zosyn. 2 sets of peripheral blood cultures remain negative, vancomycin has been discontinued. Continue supportive care and supplemental oxygen. He did receive his pneumococcal immunization. (3) Acute respiratory failure with hypoxia Current Visit: Yes Status: Acute Assessment and plan: Due to influenza, pneumonia and underlying severe COPD. Patient will likely require home oxygen at discharge. (4) RITIKA (acute kidney injury) Current Visit: Yes Status: Resolved Assessment and plan: Likely due to influenza and dehydration. Improved with IV hydration. (5) Acute exacerbation of chronic obstructive airways disease Current Visit: Yes Status: Acute Assessment and plan: Continues to have significant dyspnea, hypoxemia and wheezing. Likely due to acute viral bronchitis. Continue IV steroids, IV antibiotics, supplemental oxygen. Will consider pulmonology consult if he does not improve. (6) History of pulmonary embolism Current Visit: Yes Status: Chronic Assessment and plan: Patient has history of multiple venous thromboembolism episodes in the past. Continue anticoagulation with Coumadin. INR noted to be therapeutic. (7) HTN (hypertension) Current Visit: Yes Status: Chronic Qualifiers: Hypertension type: essential hypertension Qualified Code(s): I10 - Essential (primary) hypertension (8) [place] filter in place Current Visit: Yes Status: Chronic (9) Anxiety Current Visit: Yes Status: Chronic - Subjective Interval history: Reports dyspnea, coughing bouts and wheezing; feels dizzy with hypoxia during these spells; no fever/chills, syncope; had recent hospitalization for Pneumonia ; - Constitutional Vitals: Temp Pulse Resp BP Pulse Ox 97.5 F L 60 18 172/91 97 03/29/17 07:32 03/29/17 07:32 03/29/17 08:23 03/29/17 07:32 03/29/17 08:23 General appearance: Present: A&O X 3, obese, severe distress, answers questions appropriately - Respiratory Respiratory exam: Present: wheezes (diffuse severe wheezing B/L). Absent: accessory muscle use, rales, rhonchi - Cardiovascular Cardiovascular exam: Present: RRR, +S1, +S2, tachycardia. Absent: diastolic murmur, gallop, rubs, systolic murmur - GI/Abdominal GI/Abdominal exam: Present: normal bowel sounds, soft (obese), no peritoneal signs. Absent: distended, tenderness - Extremities Exam Extremities exam: Present: full ROM, warm, radial pulses palpable and symmetrical. Absent: calf tenderness, cyanotic, pedal edema - Neurological Exam Neurological exam: Present: CN II-XII intact, oriented X3, no focal deficits. Absent: pronater drift, facial droop, speech deficit Internal Medicine: Result - Labs CBC & Chem 7: 03/29/17 05:29 18 06:06 Labs: Short CBC 03/29/17 Range/Units 05:29 WBC 11.7 H (4.3-11.1) K/mcL Hgb 12.1 L (12.9-16.9) g/dL Hct 37.4 L (37.5-50.1) % Plt Count 258 (140-400) K/mcL Neutrophils # 8.3 (1.6-8.9) K/mcL BMP 03/29/17 05:29 Sodium 134 L Potassium 4.7 Chloride 99 Carbon Dioxide 25 BUN 22 H Creatinine 0.94 Glucose 305 H Calcium 8.7 - ABG Interpretation ABG results: ABG ABG pH 7.29 pH Units (7.32-7.45) L 03/24/17 00:18 ABG pCO2 51 mmHg (35-45) H 03/24/17 00:18 ABG pO2 75 mmHg (85-104) L 03/24/17 00:18 ABG O2 Saturation 93 % (95-98) L 03/24/17 00:18 PT/INR, D-dimer PT 27.4 Seconds (9.4-12.1) H 03/29/17 05:29 Consult Discharge Plan - Plan Referrals: Celso Simpson MD [Primary Care Provider] - 04/03/17 2:00 pm (web request sent sent on 1/8/18. Office should call you with an appointment date and time. If you do not hear from them in the next day, please call the office and schedule a hospital follow up for 5-7days out. Thank you!)
--- NOTE | 2017-03-29 10:28 | Internal Med Progress Note ---
Date of Encounter: 03/29/17 Time of Encounter: 10:26 - Assessment and plan (1) HCAP (healthcare-associated pneumonia) Current Visit: Yes Status: Acute Assessment and plan: Patient was recently discharged from our hospital after being treated for pneumonia. CT angiogram of chest during this admission showed no PE, right middle and lower lobe infectious process. Has been started on broad-spectrum antibiotics-vancomycin and Zosyn. 2 sets of peripheral blood cultures remain negative, will change antibiotics to Unasyn. Continue supportive care and supplemental oxygen. He did receive his pneumococcal immunization. (2) Influenza A Current Visit: Yes Status: Acute Assessment and plan: Influenza antigen testing positive for influenza A. Completed a course of Tamiflu. Continue supportive care with supplemental oxygen, antitussives, bronchodilators. (3) Acute respiratory failure with hypoxia Current Visit: Yes Status: Acute Assessment and plan: Due to influenza, pneumonia and underlying severe COPD. Requires home O2 evaluation prior to discharge. (4) Acute exacerbation of chronic obstructive airways disease Current Visit: Yes Status: Acute Assessment and plan: Continues to have dyspnea, worse with exertion associated with coughing bouts, dizziness and wheezing. Pulmonology consulted and agreed with current management , recommend to r/o cardiac etiology with Echocardiogram; spot dosing of Lasix as indicated; to check ABG for possible BiPAP qualification; Continue IV steroids, continue continuous supplemental oxygen, bronchodilators. When necessary antitussives and Mucinex. (5) History of pulmonary embolism Current Visit: Yes Status: Chronic Assessment and plan: Patient has history of multiple venous thromboembolism episodes in the past. Continue anticoagulation with Coumadin. INR noted to be therapeutic. (6) HTN (hypertension) Current Visit: Yes Status: Chronic Qualifiers: Hypertension type: essential hypertension Qualified Code(s): I10 - Essential (primary) hypertension (7) RITIKA (acute kidney injury) Current Visit: Yes Status: Resolved (8) [place] filter in place Current Visit: Yes Status: Chronic (9) Anxiety Current Visit: Yes Status: Chronic - Subjective Interval history: Feels somewhat better but continues to report severe cough, dyspnea and wheezing , associated with pleuritic chest pain, no fever/chills; requiring 4L/min NC O2; - Constitutional Vitals: Temp Pulse Resp BP Pulse Ox 97.5 F L 60 18 172/91 97 03/29/17 07:32 03/29/17 07:32 03/29/17 08:23 03/29/17 07:32 03/29/17 08:23 General appearance: Present: mild distress, A&O X 3, obese, answers questions appropriately - Respiratory Respiratory exam: Present: wheezes (diffuse wheezing B/L ). Absent: accessory muscle use, rales, rhonchi - Cardiovascular Cardiovascular exam: Present: RRR, +S1, +S2, tachycardia. Absent: diastolic murmur, gallop, rubs, systolic murmur - GI/Abdominal GI/Abdominal exam: Present: normal bowel sounds, soft, no peritoneal signs. Absent: distended, tenderness - Extremities Exam Extremities exam: Present: full ROM, pedal edema, warm, radial pulses palpable and symmetrical. Absent: calf tenderness, cyanotic - Neurological Exam Neurological exam: Present: CN II-XII intact, oriented X3, no focal deficits. Absent: pronater drift, facial droop, speech deficit Internal Medicine: Result - Labs CBC & Chem 7: 03/29/17 05:29 04/01/17 09:14 Labs: Short CBC 03/29/17 Range/Units 05:29 WBC 11.7 H (4.3-11.1) K/mcL Hgb 12.1 L (12.9-16.9) g/dL Hct 37.4 L (37.5-50.1) % Plt Count 258 (140-400) K/mcL Neutrophils # 8.3 (1.6-8.9) K/mcL BMP 03/29/17 05:29 Sodium 134 L Potassium 4.7 Chloride 99 Carbon Dioxide 25 BUN 22 H Creatinine 0.94 Glucose 305 H Calcium 8.7 - ABG Interpretation ABG results: ABG ABG pH 7.29 pH Units (7.32-7.45) L 03/24/17 00:18 ABG pCO2 51 mmHg (35-45) H 03/24/17 00:18 ABG pO2 75 mmHg (85-104) L 03/24/17 00:18 ABG O2 Saturation 93 % (95-98) L 03/24/17 00:18 PT/INR, D-dimer PT 27.4 Seconds (9.4-12.1) H 03/29/17 05:29 Consult Discharge Plan - Plan Referrals: Celso Simpson MD [Primary Care Provider] - 04/03/17 2:00 pm (web request sent sent on 03/27/17. Office should call you with an appointment date and time. If you do not hear from them in the next day, please call the office and schedule a hospital follow up for 5-7days out. Thank you!) Prescriptions: Ipratropium/Albuterol Neb [Duoneb] 3 ml IH Q6H PRN 30 Days inhsol PRN Reason: Shortness Of Breath/Wheezing Nebulizer [Aeroeclipse] 1 each MC Q6H PRN #1 each PRN Reason: Shortness Of Breath/Wheezing Nebulizer Accessories [Sootheneb [id number] Adult Mask] 1 each MC Q6H PRN 30 Days each PRN Reason: Shortness Of Breath/Wheezing Nebulizer Accessories [Sootheneb [id number] Mesh Cap] 1 each MC Q6H PRN 30 Days each PRN Reason: Shortness Of Breath/Wheezing Nebulizer Accessories [Sootheneb Cmk420 Med Cup] 1 each MC Q6H PRN 30 Days each PRN Reason: Shortness Of Breath/Wheezing
--- NOTE | 2017-03-29 11:07 | Pulmonology Consult Note ---
Date of Encounter: 03/29/17 Time of Encounter: 11:00 Assessment and Plan (1) Acute exacerbation of chronic obstructive airways disease Current Visit: No Status: Acute Patient is chronic smoker , CT showed evidence of air trapping agree with treatment of COPD exacerbation bronchodilators and steroids . (2) Acute respiratory failure with hypoxia Current Visit: Yes Status: Acute Patient hypoxemia is multifactorial with viral exacerbation of COPD now complicated by right lower lobe pneumonia , patient looks fluid overloaded will get BNP and ECHO will do gentle diuresis . 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 (7) History of pulmonary embolism Current Visit: No Status: Chronic Patient current CTA didnt show any large central pulmonary embolism patient is on chronic coumadin therapy INR is 2.5 .To continue anticogulation if sub therapuetic will need bridging with heparin . History of Present Illness Consult date: 03/29/17 Requesting physician: Stephani Park Reason for consult: dyspnea, cough, hypoxemia, pneumonia Chief complaint: shortness of breadth History of present illness: 57 year old male with past medical history signifcant for HTN , Morbid obesity , Chronic smoking comes with some nausea and vomitting flu like symptoms found to have Flu positive , developed acute respiratory failure with hypoxia treated as COPD exacebration and pneumonia , patient has H/o DVT and PE in the past patient is on coumadin therapeutic, pulmonary was consulted as he is not getting better .Patient says he is slowly getting better at rest he is doing better on exertion he has still shortness of breadth on exertion , denies any chest pain or tightness , has some pedal edema , denies any fever or chills denies any neuro or GI symptoms. Past Med Surg Social Fam HX - Past Medical History Medical history: COPD, DVT, hypertension, pulmonary embolus Psychiatric history: anxiety - Past Surgical History Surgical History: non-contributory - Social History Smoking Status: Former smoker Smokeless Tobacco Status: No Alcohol use: none Drug use: none - Family History Father Adopted: [place]: [place] Living Status: Age at : 73 Cause of : bladder CA Hx Family Cardiac Disorders: Yes (Uncles, dad) Hx Family Respiratory Disorders: Yes Hx Family Cancer: Yes Hx Family GI Disorders: No Mother Adopted: No Hx Family Cancer: Yes (sibling,parents) Medications and Allergies ALPRAZolam [Xanax 1 MG Tablet] 1 mg PO DAILY PRN 03/27/15 [History] Gabapentin [Neurontin] 300 mg PO TID 03/27/15 [History] Tizanidine HCl [Zanaflex] 4 mg PO TID PRN 03/27/15 [History] Omeprazole [PriLOSEC] 40 mg PO DAILY@0630 #30 capsule 08/16/15 [Rx] DULoxetine [Cymbalta] 30 mg PO DAILY 02/27/17 [History] Albuterol Sulfate [Albuterol Inhaler] 2 puff IH Q4HR PRN #1 hfa.aer.ad 03/06/17 [Rx] Budesonide/Formoterol 80/4.5 [Symbicort 80/4.5] 2 puff IH BIDR #1 inhaler 03/06 [Rx] Atorvastatin [Lipitor] 10 mg PO HS 03/23/17 [History] Diclofenac Sodium [Voltaren] 1 appl TP TID PRN 03/23/17 [History] Lisinopril [Zestril] 20 mg PO DAILY 03/23/17 [History] Warfarin [Coumadin] 10 mg PO 1800 03/23/17 [History] 3 Allergy/AdvReac Type Severity Reaction Status Date / Time No Known Allergies Allergy Verified 02/18/17 16:01 All Systems: A 10-system review of systems was performed and is negative for pertinent findings except as documented above in the HPI. Physical Examination Vital Signs: Vital Signs, Last 4 Hours Temp Pulse Resp BP Pulse Ox 03/29/17 08:23 18 97 03/29/17 07:46 95 03/29/17 07:32 97.5 F L 60 18 172/91 95 Extremities: edema Results - Laboratory Findings CBC and BMP: 03/29/17 05:29 03/29/17 05:29 ABG ABG pH 7.29 pH Units (7.32-7.45) L 03/24/17 00:18 ABG pCO2 51 mmHg (35-45) H 03/24/17 00:18 ABG pO2 75 mmHg (85-104) L 03/24/17 00:18 ABG O2 Saturation 93 % (95-98) L 03/24/17 00:18 PT/INR, D-dimer PT 27.4 Seconds (9.4-12.1) H 03/29/17 05:29 Abnormal lab findings: Abnormal lab results WBC 11.7 K/mcL (4.3-11.1) H 03/29/17 05:29 RBC 3.98 M/mcL (4.19-5.50) L 03/29/17 05:29 Hgb 12.1 g/dL (12.9-16.9) L 03/29/17 05:29 Hct 37.4 % (37.5-50.1) L 03/29/17 05:29 Immature Gran % 12.3 % (0-4) H 03/29/17 05:29 Nucleated RBCs/100 WBC 0.4 /100 WBC (0) H 03/29/17 05:29 Reactive Lymphocytes Present (Not Present) A 03/23/17 14:35 PT 27.4 Seconds (9.4-12.1) H 03/29/17 05:29 ABG pH 7.29 pH Units (7.32-7.45) L 03/24/17 00:18 ABG pCO2 51 mmHg (35-45) H 03/24/17 00:18 ABG pO2 75 mmHg (85-104) L 03/24/17 00:18 ABG O2 Saturation 93 % (95-98) L 03/24/17 00:18 ABG Base Excess -3 mEq/L (-2 to 3) L 03/24/17 00:18 Sodium 134 mEq/L (136-145) L 03/29/17 05:29 BUN 22 mg/dL (6-20) H 03/29/17 05:29 Glucose 305 mg/dL (70-105) H 03/29/17 05:29 POC Glucose 223 (58-89) H 03/26/17 22:19 Total Bilirubin 0.2 mg/dL (0.3-1.0) L 03/28/17 05:28 ALT 54 Units/L (7-52) H 03/28/17 05:28 Serum Total Protein 5.9 g/dL (6.4-8.9) L 03/28/17 05:28 Albumin 3.3 g/dL (3.5-5.7) L 03/28/17 05:28 - Clinical Findings Intake & Output: Intake & Output 03/28/17 03/29/17 03/29/17 23:59 07:59 15:59 Intake Total 340 / 340 340 / 340 240 / 240 Output Total 600 / 600 0 / 0 Balance -260 / -260 340 / 340 240 / 240 Weight 126.1 kg Consult Discharge Plan - Plan Referrals: Celso Simpson MD [Primary Care Provider] - 04/03/17 2:00 pm (web request sent sent on 03/27/17. Office should call you with an appointment date and time. If you do not hear from them in the next day, please call the office and schedule a hospital follow up for 5-7days out. Thank you!)
[2017-03-29] MEDS: *HR* Acetylcysteine 20% 600 MG/3 ML ORAL SYRINGE PO SCH (11:23)
[2017-03-29] MEDS ORDERED: Furosemide 20 MG/2 ML VIAL IVP ONE (12:51)
[2017-03-29] MEDS ORDERED: *HR* Metoprolol 5 MG/5 ML VIAL IVP ONE (13:39)
[2017-03-29] MEDS ORDERED: *HR* Warfarin 2.5 MG TABLET PO ONE (18:00)
[2017-03-30] MEDS: Ipratropium/Albuterol Neb 3 ML IH SCH ×7 (00:18→23:28)
[2017-03-30] MEDS: Ampicillin/Sulbactam 3,000 MG in 0.9 % Sodium Chloride Mini Bag 100 ML IVPB SCH ×5 (01:13→23:45)
[2017-03-30] MEDS: methylPREDNISolone 125 MG/2 ML VIAL IVP SCH ×4 (01:13→23:45)
[2017-03-30] MEDS: *HR* Acetylcysteine 20% 600 MG/3 ML ORAL SYRINGE PO SCH ×3 (01:22→20:52)
[2017-03-30] MEDS: ALPRAZolam 1 MG TABLET PO PRN ×2 (01:47→23:47)
[2017-03-30] MEDS: *HR* OxyCODONE/APAP 5/325 TABLET PO PRN ×3 (06:22→18:11)
[2017-03-30 06:40] LABS: INR 2.8; Prothrombin Time 31.2 Seconds (9.4-12.1)
[2017-03-30] MEDS ORDERED: Tiotropium 18 MCG inhalation IH SCH (07:00)
[2017-03-30 07:16] LABS: BUN/Creatinine Ratio 25 (6-26); Blood Urea Nitrogen 24 mg/dL (6-20); Carbon Dioxide 30 mEq/L (23-29); Chloride 100 mEq/L (98-107); Glucose 185 mg/dL (70-105); Osmolality,Calculated 293 (280-300); Potassium 4.9 mEq/L (3.5-5.1); Sodium 137 mEq/L (136-145); eGFR For African Americans > 60 (> 60); eGFR For Non-African Americans > 60 (> 60)
[2017-03-30] MEDS: Budesonide/Formoterol 80/4.5 MDI IH SCH ×2 (07:59→20:11)
[2017-03-30] MEDS: Gabapentin 300 MG CAPSULE PO SCH ×3 (09:35→20:52)
[2017-03-30] MEDS: GuaiFENesin/Codeine Oral Soln 5 ML UDC PO PRN ×3 (12:02→23:52)
[2017-03-30 14:58] LABS: ABG Base Excess 4 mEq/L (-2 to 3); ABG HCO3 30 mEq/L (21-27); ABG Oxygen Saturation 95 % (95-98); ABG PCO2 45 mmHg (35-45); ABG PH 7.42 pH Units (7.32-7.45); ABG PO2 75 mmHg (85-104); ABG TCO2 31 mEq/L (20-26)
[2017-03-30] MEDS ORDERED: Furosemide 40 MG/4 ML VIAL IVP ONE (18:08)
--- NOTE | 2017-03-30 18:09 | Internal Med Progress Note ---
Date of Encounter: 03/30/17 Time of Encounter: 12:20 - Assessment and plan (1) Influenza A Current Visit: Yes Status: Acute Assessment and plan: Influenza antigen testing positive for influenza A. Completed a course of Tamiflu. Continue supportive care with supplemental oxygen, antitussives, bronchodilators. (2) HCAP (healthcare-associated pneumonia) Current Visit: Yes Status: Acute Assessment and plan: Patient was recently discharged from our hospital after being treated for pneumonia. CT angiogram of chest during this admission showed no PE, right middle and lower lobe infectious process. Has been started on broad-spectrum antibiotics-vancomycin and Zosyn. 2 sets of peripheral blood cultures remain negative, continue Unasyn for now. Continue supportive care and supplemental oxygen. He did receive his pneumococcal immunization. (3) Acute respiratory failure with hypoxia Current Visit: Yes Status: Acute Assessment and plan: Due to influenza, pneumonia and underlying severe COPD. Requires home O2 evaluation prior to discharge. (4) RITIKA (acute kidney injury) Current Visit: Yes Status: Resolved (5) Acute exacerbation of chronic obstructive airways disease Current Visit: Yes Status: Acute Assessment and plan: Continues to have dyspnea, worse with exertion associated with coughing bouts, dizziness and wheezing. Pulmonology consulted and agreed with current management , recommend to r/o cardiac etiology with Echocardiogram; received Lasix; ABG reviewed- no significant CO2 retention, does not qualify for BiPAP- 7.42/45/75; Continue to taper IV steroids as tolerated, continue continuous supplemental oxygen, bronchodilators. When necessary antitussives and Mucinex. (6) History of pulmonary embolism Current Visit: Yes Status: Chronic Assessment and plan: Patient has history of multiple venous thromboembolism episodes in the past. Continue anticoagulation with Coumadin. INR noted to be therapeutic. (7) HTN (hypertension) Current Visit: Yes Status: Chronic Qualifiers: Hypertension type: essential hypertension Qualified Code(s): I10 - Essential (primary) hypertension (8) Holli filter in place Current Visit: Yes Status: Chronic (9) Anxiety Current Visit: Yes Status: Chronic - Subjective Interval history: Somewhat improving but continues to have coughing spells, dyspnea, anxiety and dizziness; improving O2 requirements; - Constitutional Vitals: Temp Pulse Resp BP Pulse Ox 98 F 116 16 158/81 95 03/30/17 16:00 03/30/17 16:00 03/30/17 16:00 03/30/17 16:00 03/30/17 16:00 General appearance: Present: mild distress, A&O X 3, obese, answers questions appropriately - Respiratory Respiratory exam: Present: CTAB, wheezes (B/L diffuse wheezing). Absent: accessory muscle use, rales, rhonchi - Cardiovascular Cardiovascular exam: Present: RRR, +S1, +S2, tachycardia. Absent: diastolic murmur, gallop, rubs, systolic murmur - GI/Abdominal GI/Abdominal exam: Present: normal bowel sounds, soft (obese), no peritoneal signs. Absent: distended, tenderness - Extremities Exam Extremities exam: Present: full ROM, pedal edema, warm, radial pulses palpable and symmetrical. Absent: calf tenderness, cyanotic Internal Medicine: Result - Labs CBC & Chem 7: 03/29/17 05:29 04/01/17 09:14 Labs: BMP 03/30/17 06:06 Sodium 137 Potassium 4.9 Chloride 100 Carbon Dioxide 30 H BUN 24 H Creatinine 0.96 Glucose 185 H Calcium 9.0 - ABG Interpretation ABG results: ABG ABG pH 7.42 pH Units (7.32-7.45) 03/30/17 14:52 ABG pCO2 45 mmHg (35-45) 03/30/17 14:52 ABG pO2 75 mmHg (85-104) L 03/30/17 14:52 ABG O2 Saturation 95 % (95-98) 03/30/17 14:52 PT/INR, D-dimer PT 31.2 Seconds (9.4-12.1) H 03/30/17 06:06 - Impressions Impressions Echocardiogram 03/29/17 12:46 Impressions: LVEF 60-65%. Normal right ventricular structure and function. No significant valvular dysfunction. No pulmonary hypertension. Left Ventricular Wall Motion: Rest Echo Findings All wall segments showed normal motion. Findings: Study Quality * Technically adequate exam. ECG Findings * Sinus bradycardia. Left Ventricle * LVEF 60-65%. * Normal LV chamber size, wall thickness and function. * Indeterminate diastolic function. E/A>1, Normal Lat Attila, probably reduced Med velocity. Right Ventricle * Normal right ventricular structure and function. Left Atrium * Normal left atrial size. Right Atrium * Normal right atrial size. Aortic Valve * No aortic regurgitation. * Aortic valve not well visualized. * No aortic stenosis. Mitral Valve * No mitral regurgitation. * Normal mitral valve structure. * No mitral stenosis. Tricuspid Valve * Tricuspid valve not well visualized. * No tricuspid regurgitation. * Estimated RA pressure is 3 mmHg. * Estimated RVSP is 10 mmHg. * No pulmonary hypertension. Pulmonic Valve * Pulmonic valve is not well visualized. * No pulmonic stenosis. * Trace pulmonic regurgitation. Pulmonary Artery * Pulmonary artery not well visualized. Aorta * Normally sized aortic root. Pericardium * There is no pericardial effusion present. Interatrial Septum * Interatrial septum not well evaluated. IVC * The IVC is not dilated. * > 50% respiratory change Consult Discharge Plan - Plan Referrals: Celso Simpson MD [Primary Care Provider] - 04/03/17 2:00 pm (web request sent sent on 03/27/17. Office should call you with an appointment date and time. If you do not hear from them in the next day, please call the office and schedule a hospital follow up for 5-7days out. Thank you!) Prescriptions: Ipratropium/Albuterol Neb [Duoneb] 3 ml IH Q6H PRN 30 Days inhsol PRN Reason: Shortness Of Breath/Wheezing Nebulizer [Aeroeclipse] 1 each MC Q6H PRN #1 each PRN Reason: Shortness Of Breath/Wheezing Nebulizer Accessories [Sootheneb [id number] Adult Mask] 1 each MC Q6H PRN 30 Days each PRN Reason: Shortness Of Breath/Wheezing Nebulizer Accessories [Sootheneb [id number] Mesh Cap] 1 each MC Q6H PRN 30 Days each PRN Reason: Shortness Of Breath/Wheezing Nebulizer Accessories [Sootheneb [id number] Med Cup] 1 each MC Q6H PRN 30 Days each PRN Reason: Shortness Of Breath/Wheezing
[2017-03-30] MEDS: tiZANidine 4 MG TABLET PO PRN (18:11)
--- NOTE | 2017-03-30 22:44 | Pulmonology Progress Note ---
Date of Encounter: 03/30/17 Time of Encounter: 13:00 Assessment and Plan (1) Acute exacerbation of chronic obstructive airways disease Current Visit: Yes Status: Acute To continue current regimen of bronchodilators , steroids and antibiotics (2) Acute respiratory failure with hypoxia Current Visit: Yes Status: Acute Viral exacerbation of COPD with some fluid overload will continue some diuresis (3) Pneumonia Current Visit: No Status: Acute To continue antibiotics Qualifiers: Pneumonia type: due to unspecified organism Laterality: right Lung location: unspecified part of lung Qualified Code(s): J18.9 - Pneumonia, unspecified organism (4) Influenza A Current Visit: Yes Status: Acute To complete the course of Tamiflu (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 Objective PUL Vital signs: Last Vital Signs Temp 97.9 F 03/30/17 20:22 Pulse 106 03/30/17 20:22 Resp 24 03/30/17 20:22 BP 128/71 03/30/17 20:22 Pulse Ox 96 03/30/17 20:22 Auscultation: bilateral: wheezes Extremities: edema Results - Laboratory Findings CBC and BMP: 03/29/17 05:29 03/30/17 06:06 ABG ABG pH 7.42 pH Units (7.32-7.45) 03/30/17 14:52 ABG pCO2 45 mmHg (35-45) 03/30/17 14:52 ABG pO2 75 mmHg (85-104) L 03/30/17 14:52 ABG O2 Saturation 95 % (95-98) 03/30/17 14:52 PT/INR, D-dimer PT 31.2 Seconds (9.4-12.1) H 03/30/17 06:06 Abnormal lab findings: Abnormal lab results WBC 11.7 K/mcL (4.3-11.1) H 03/29/17 05:29 RBC 3.98 M/mcL (4.19-5.50) L 03/29/17 05:29 Hgb 12.1 g/dL (12.9-16.9) L 03/29/17 05:29 Hct 37.4 % (37.5-50.1) L 03/29/17 05:29 Immature Gran % 12.3 % (0-4) H 03/29/17 05:29 Nucleated RBCs/100 WBC 0.4 /100 WBC (0) H 03/29/17 05:29 Reactive Lymphocytes Present (Not Present) A 03/23/17 14:35 PT 31.2 Seconds (9.4-12.1) H 03/30/17 06:06 ABG pO2 75 mmHg (85-104) L 03/30/17 14:52 ABG HCO3 30 mEq/L (21-27) H 03/30/17 14:52 ABG Total CO2 31 mEq/L (20-26) H 03/30/17 14:52 ABG Base Excess 4 mEq/L (-2 to 3) H 03/30/17 14:52 Carbon Dioxide 30 mEq/L (23-29) H 03/30/17 06:06 BUN 24 mg/dL (6-20) H 03/30/17 06:06 Glucose 185 mg/dL (70-105) H 03/30/17 06:06 POC Glucose 223 (58-89) H 03/26/17 22:19 Total Bilirubin 0.2 mg/dL (0.3-1.0) L 03/28/17 05:28 ALT 54 Units/L (7-52) H 03/28/17 05:28 B-Natriuretic Peptide 132 pg/mL (Less than 100) H 03/29/17 13:57 Serum Total Protein 5.9 g/dL (6.4-8.9) L 03/28/17 05:28 Albumin 3.3 g/dL (3.5-5.7) L 03/28/17 05:28 - Clinical Findings Intake & Output: Intake & Output 03/30/17 03/30/17 03/30/17 07:59 15:59 23:59 Intake Total 200 / 200 100 / 100 Output Total 800 / 800 Balance 200 / 200 -700 / -700 Weight 126.1 kg Consult Discharge Plan - Plan Referrals: Celso Simpson MD [Primary Care Provider] - 04/03/17 2:00 pm (web request sent sent on 03/27/17. Office should call you with an appointment date and time. If you do not hear from them in the next day, please call the office and schedule a hospital follow up for 5-7days out. Thank you!)
[2017-03-31] MEDS: *HR* OxyCODONE/APAP 5/325 TABLET PO PRN ×4 (00:15→17:55)
[2017-03-31] MEDS: Ipratropium/Albuterol Neb 3 ML IH SCH ×5 (04:11→19:44)
[2017-03-31 05:16] LABS: BUN/Creatinine Ratio 25 (6-26); Blood Urea Nitrogen 26 mg/dL (6-20); Calcium 8.9 mg/dL (8.6-10.3); Carbon Dioxide 31 mEq/L (23-29); Chloride 96 mEq/L (98-107); Glucose 183 mg/dL (70-105); Magnesium 2.3 mg/dL (1.6-2.6); Osmolality,Calculated 291 (280-300); Potassium 4.7 mEq/L (3.5-5.1); Sodium 136 mEq/L (136-145); eGFR For African Americans > 60 (> 60); eGFR For Non-African Americans > 60 (> 60)
[2017-03-31] MEDS: Ampicillin/Sulbactam 3,000 MG in 0.9 % Sodium Chloride Mini Bag 100 ML IVPB SCH ×3 (05:29→17:51)
[2017-03-31 05:52] LABS: INR 2.3; Prothrombin Time 25.2 Seconds (9.4-12.1)
[2017-03-31] MEDS: Budesonide/Formoterol 80/4.5 MDI IH SCH ×2 (07:52→19:44)
[2017-03-31] MEDS: methylPREDNISolone 125 MG/2 ML VIAL IVP SCH (10:01)
[2017-03-31] MEDS: *HR* Acetylcysteine 20% 600 MG/3 ML ORAL SYRINGE PO SCH ×2 (10:01→20:47)
[2017-03-31] MEDS: Gabapentin 300 MG CAPSULE PO SCH ×3 (10:02→20:46)
--- NOTE | 2017-03-31 11:44 | Internal Med Progress Note ---
Date of Encounter: 03/31/17 Time of Encounter: 11:43 - Assessment and plan (1) Influenza A Current Visit: Yes Status: Acute Assessment and plan: Influenza antigen testing positive for influenza A. Completed a course of Tamiflu. Continue supportive care with supplemental oxygen, antitussives, bronchodilators. (2) HCAP (healthcare-associated pneumonia) Current Visit: Yes Status: Acute Assessment and plan: Patient was recently discharged from our hospital after being treated for pneumonia. CT angiogram of chest during this admission showed no PE, right middle and lower lobe infectious process. 2 sets of peripheral blood cultures remain negative, continue Unasyn for now. Continue supportive care and supplemental oxygen. He did receive his pneumococcal immunization. (3) Acute respiratory failure with hypoxia Current Visit: Yes Status: Acute Assessment and plan: Due to influenza, pneumonia and underlying severe COPD. Home O2 evaluation has been completed and patient would benefit from and qualified for 2L/min via [place] O2 , continuously; he is noted to be mobile at home and requires portable home O2; (4) RITIKA (acute kidney injury) Current Visit: Yes Status: Resolved (5) Acute exacerbation of chronic obstructive airways disease Current Visit: Yes Status: Acute Assessment and plan: Continues to have dyspnea, worse with exertion associated with coughing bouts, dizziness and wheezing. Pulmonology consulted and agreed with current management ; Echocardiogram reviewed- shows preserved EF, normal RV structure and function ; will hold Lasix due to dizziness and normal Echo; he does have significant pedal edema; Continue to taper IV steroids as tolerated, continue continuous supplemental oxygen, bronchodilators. When necessary antitussives and Mucinex. (6) History of pulmonary embolism Current Visit: Yes Status: Chronic Assessment and plan: Patient has history of multiple venous thromboembolism episodes in the past. Continue anticoagulation with Coumadin. INR noted to be therapeutic. (7) HTN (hypertension) Current Visit: Yes Status: Chronic Qualifiers: Hypertension type: essential hypertension Qualified Code(s): I10 - Essential (primary) hypertension (8) Holli filter in place Current Visit: Yes Status: Chronic (9) Anxiety Current Visit: Yes Status: Chronic - Subjective Interval history: Feels somewhat better but reports a near syncopal spell last night when he walked to the restroom; continues to have hacking cough with associated hypoxia and dizziness; improving wheezing; - Constitutional Vitals: Temp Pulse Resp BP Pulse Ox 98.0 F 110 15 122/71 98 03/31/17 11:30 03/31/17 11:30 03/31/17 11:30 03/31/17 11:30 03/31/17 11:30 General appearance: Present: mild distress, A&O X 3, obese, answers questions appropriately - Respiratory Respiratory exam: Present: CTAB, wheezes (B/L wheezing, mildly improved). Absent: accessory muscle use, rales, rhonchi - Cardiovascular Cardiovascular exam: Present: RRR, +S1, +S2, tachycardia. Absent: diastolic murmur, gallop, rubs, systolic murmur - GI/Abdominal GI/Abdominal exam: Present: normal bowel sounds, soft (obese), no peritoneal signs. Absent: distended, tenderness - Extremities Exam Extremities exam: Present: full ROM, pedal edema, warm, radial pulses palpable and symmetrical. Absent: calf tenderness, cyanotic Internal Medicine: Result - Labs CBC & Chem 7: 03/29/17 05:29 04/01/17 09:14 Labs: BMP 03/31/17 04:50 Sodium 136 Potassium 4.7 Chloride 96 L Carbon Dioxide 31 H BUN 26 H Creatinine 1.03 Glucose 183 H Calcium 8.9 - ABG Interpretation ABG results: ABG ABG pH 7.42 pH Units (7.32-7.45) 03/30/17 14:52 ABG pCO2 45 mmHg (35-45) 03/30/17 14:52 ABG pO2 75 mmHg (85-104) L 03/30/17 14:52 ABG O2 Saturation 95 % (95-98) 03/30/17 14:52 PT/INR, D-dimer PT 25.2 Seconds (9.4-12.1) H 03/31/17 04:50 Consult Discharge Plan - Plan Referrals: Celso Simpson MD [Primary Care Provider] - 04/03/17 2:00 pm (web request sent sent on 03/27/17. Office should call you with an appointment date and time. If you do not hear from them in the next day, please call the office and schedule a hospital follow up for 5-7days out. Thank you!) Prescriptions: Ipratropium/Albuterol Neb [Duoneb] 3 ml IH Q6H PRN 30 Days inhsol PRN Reason: Shortness Of Breath/Wheezing Nebulizer [Aeroeclipse] 1 each MC Q6H PRN #1 each PRN Reason: Shortness Of Breath/Wheezing Nebulizer Accessories [Sootheneb [id number] Adult Mask] 1 each MC Q6H PRN 30 Days each PRN Reason: Shortness Of Breath/Wheezing Nebulizer Accessories [Sootheneb [id number] Mesh Cap] 1 each MC Q6H PRN 30 Days each PRN Reason: Shortness Of Breath/Wheezing Nebulizer Accessories [Sootheneb [id number] Med Cup] 1 each MC Q6H PRN 30 Days each PRN Reason: Shortness Of Breath/Wheezing
--- NOTE | 2017-03-31 12:25 | Pulmonology Progress Note ---
Date of Encounter: 03/31/17 Time of Encounter: 11:30 Assessment and Plan (1) Acute exacerbation of chronic obstructive airways disease Current Visit: Yes Status: Acute To continue current regimen of bronchodilators , steroids and antibiotics . Will give total of 7 days of Unasyn . Agree with tapering steroids on discharge will need atleast a 2 week taper. (2) Acute respiratory failure with hypoxia Current Visit: Yes Status: Acute Viral exacerbation of COPD with some fluid overload will continue diuresis as tolerated . (3) Pneumonia Current Visit: No Status: Acute To complete unasyn for total 7 days . 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 (7) History of pulmonary embolism Current Visit: Yes Status: Chronic Patient is on Coumadin. Subjective Principal diagnosis: COPD exacerbation Interval history: Patient at rest is doing better but on exertion he is still having shortness of breadth cough and sputum production is getting better , denies any chest pain has some shortness of breadth on exertion way better than yesterday . Objective PUL Vital signs: Last Vital Signs Temp 98.0 F 03/31/17 11:30 Pulse 110 03/31/17 11:30 Resp 15 03/31/17 11:30 BP 122/71 03/31/17 11:30 Pulse Ox 98 03/31/17 11:30 Auscultation: bilateral: wheezes, other Extremities: edema Results - Laboratory Findings CBC and BMP: 03/29/17 05:29 03/31/17 04:50 ABG ABG pH 7.42 pH Units (7.32-7.45) 03/30/17 14:52 ABG pCO2 45 mmHg (35-45) 03/30/17 14:52 ABG pO2 75 mmHg (85-104) L 03/30/17 14:52 ABG O2 Saturation 95 % (95-98) 03/30/17 14:52 PT/INR, D-dimer PT 25.2 Seconds (9.4-12.1) H 03/31/17 04:50 Abnormal lab findings: Abnormal lab results WBC 11.7 K/mcL (4.3-11.1) H 03/29/17 05:29 RBC 3.98 M/mcL (4.19-5.50) L 03/29/17 05:29 Hgb 12.1 g/dL (12.9-16.9) L 03/29/17 05:29 Hct 37.4 % (37.5-50.1) L 03/29/17 05:29 Immature Gran % 12.3 % (0-4) H 03/29/17 05:29 Nucleated RBCs/100 WBC 0.4 /100 WBC (0) H 03/29/17 05:29 Reactive Lymphocytes Present (Not Present) A 03/23/17 14:35 PT 25.2 Seconds (9.4-12.1) H 03/31/17 04:50 ABG pO2 75 mmHg (85-104) L 03/30/17 14:52 ABG HCO3 30 mEq/L (21-27) H 03/30/17 14:52 ABG Total CO2 31 mEq/L (20-26) H 03/30/17 14:52 ABG Base Excess 4 mEq/L (-2 to 3) H 03/30/17 14:52 Chloride 96 mEq/L (98-107) L 03/31/17 04:50 Carbon Dioxide 31 mEq/L (23-29) H 03/31/17 04:50 BUN 26 mg/dL (6-20) H 03/31/17 04:50 Glucose 183 mg/dL (70-105) H 03/31/17 04:50 POC Glucose 223 (58-89) H 03/26/17 22:19 Total Bilirubin 0.2 mg/dL (0.3-1.0) L 03/28/17 05:28 ALT 54 Units/L (7-52) H 03/28/17 05:28 B-Natriuretic Peptide 132 pg/mL (Less than 100) H 03/29/17 13:57 Serum Total Protein 5.9 g/dL (6.4-8.9) L 03/28/17 05:28 Albumin 3.3 g/dL (3.5-5.7) L 03/28/17 05:28 - Clinical Findings Intake & Output: Intake & Output 03/30/17 03/31/17 03/31/17 23:59 07:59 15:59 Intake Total 100 / 100 200 / 200 0 / 0 Output Total 740 / 740 Balance 100 / 100 -540 / -540 0 / 0 Weight 136.985 kg Consult Discharge Plan - Plan Referrals: Celso Simpson MD [Primary Care Provider] - 04/03/17 2:00 pm (web request sent sent on 03/27/17. Office should call you with an appointment date and time. If you do not hear from them in the next day, please call the office and schedule a hospital follow up for 5-7days out. Thank you!) Prescriptions: Ipratropium/Albuterol Neb [Duoneb] 3 ml IH Q6H PRN 30 Days inhsol PRN Reason: Shortness Of Breath/Wheezing Nebulizer [Aeroeclipse] 1 each MC Q6H PRN #1 each PRN Reason: Shortness Of Breath/Wheezing Nebulizer Accessories [Sootheneb [id number] Adult Mask] 1 each MC Q6H PRN 30 Days each PRN Reason: Shortness Of Breath/Wheezing Nebulizer Accessories [Sootheneb [id number] Mesh Cap] 1 each MC Q6H PRN 30 Days each PRN Reason: Shortness Of Breath/Wheezing Nebulizer Accessories [Sootheneb [id number] Med Cup] 1 each MC Q6H PRN 30 Days each PRN Reason: Shortness Of Breath/Wheezing
[2017-03-31] MEDS: MethylPREDNISolone 40 MG/ML VIAL IVP SCH (14:49)
[2017-03-31] MEDS: GuaiFENesin/Codeine Oral Soln 5 ML UDC PO PRN (17:55)
[2017-03-31] MEDS: tiZANidine 4 MG TABLET PO PRN (17:55)
[2017-03-31] MEDS ORDERED: *HR* Warfarin 2.5 MG TABLET PO ONE (18:00)
[2017-03-31] MEDS: Furosemide 40 MG/4 ML VIAL IVP SCH (18:40)
[2017-04-01] MEDS: GuaiFENesin/Codeine Oral Soln 5 ML UDC PO PRN ×3 (00:13→20:59)
[2017-04-01] MEDS: *HR* OxyCODONE/APAP 5/325 TABLET PO PRN ×4 (00:13→20:48)
[2017-04-01] MEDS: ALPRAZolam 1 MG TABLET PO PRN ×3 (00:13→21:32)
[2017-04-01] MEDS: Ampicillin/Sulbactam 3,000 MG in 0.9 % Sodium Chloride Mini Bag 100 ML IVPB SCH ×3 (00:15→05:18)
[2017-04-01] MEDS: MethylPREDNISolone 40 MG/ML VIAL IVP SCH ×4 (00:16→17:40)
[2017-04-01] MEDS: Ipratropium/Albuterol Neb 3 ML IH SCH ×6 (00:28→20:10)
[2017-04-01 08:20] LABS: INR 1.7; Prothrombin Time 18.9 Seconds (9.4-12.1)
--- NOTE | 2017-04-01 09:00 | Pulmonology Progress Note ---
Date of Encounter: 04/01/17 Time of Encounter: 09:00 Assessment and Plan (1) Acute exacerbation of chronic obstructive airways disease Current Visit: Yes Status: Acute To continue current regimen of bronchodilators , steroids and antibiotics . Will give total of 7 days of Unasyn . Agree with tapering steroids on discharge will need atleast a 2 week taper. To continue diuresis . (2) Acute respiratory failure with hypoxia Current Visit: Yes Status: Acute Viral exacerbation of COPD with some fluid overload will continue diuresis as tolerated . (3) Pneumonia Current Visit: No Status: Acute To complete unasyn for total 7 days . 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 (7) History of pulmonary embolism Current Visit: Yes Status: Chronic Patient is on Coumadin. to keep INR therapeutic 2.5 -3.0 . INR is Subtherapeutic Subjective Principal diagnosis: COPD exacerbation Interval history: Patient at rest is doing better but on exertion he is still having shortness of breadth cough and sputum production is getting better , denies any chest pain has some shortness of breadth on exertion. 04/01 patient exerted to the bathroom without oxygen. Objective PUL Vital signs: Last Vital Signs Temp 97.7 F 04/01/17 07:02 Pulse 61 04/01/17 07:02 Resp 18 04/01/17 07:02 BP 174/83 04/01/17 07:02 Pulse Ox 94 04/01/17 07:02 Auscultation: bilateral: wheezes Extremities: edema Results - Laboratory Findings CBC and BMP: 03/29/17 05:29 04/01/17 09:14 ABG ABG pH 7.42 pH Units (7.32-7.45) 03/30/17 14:52 ABG pCO2 45 mmHg (35-45) 03/30/17 14:52 ABG pO2 75 mmHg (85-104) L 03/30/17 14:52 ABG O2 Saturation 95 % (95-98) 03/30/17 14:52 PT/INR, D-dimer PT 18.9 Seconds (9.4-12.1) H 04/01/17 07:42 Abnormal lab findings: Abnormal lab results WBC 11.7 K/mcL (4.3-11.1) H 03/29/17 05:29 RBC 3.98 M/mcL (4.19-5.50) L 03/29/17 05:29 Hgb 12.1 g/dL (12.9-16.9) L 03/29/17 05:29 Hct 37.4 % (37.5-50.1) L 03/29/17 05:29 Immature Gran % 12.3 % (0-4) H 03/29/17 05:29 Nucleated RBCs/100 WBC 0.4 /100 WBC (0) H 03/29/17 05:29 Reactive Lymphocytes Present (Not Present) A 03/23/17 14:35 PT 18.9 Seconds (9.4-12.1) H 04/01/17 07:42 ABG pO2 75 mmHg (85-104) L 03/30/17 14:52 ABG HCO3 30 mEq/L (21-27) H 03/30/17 14:52 ABG Total CO2 31 mEq/L (20-26) H 03/30/17 14:52 ABG Base Excess 4 mEq/L (-2 to 3) H 03/30/17 14:52 Chloride 96 mEq/L (98-107) L 03/31/17 04:50 Carbon Dioxide 31 mEq/L (23-29) H 03/31/17 04:50 BUN 26 mg/dL (6-20) H 03/31/17 04:50 Glucose 183 mg/dL (70-105) H 03/31/17 04:50 POC Glucose 223 (58-89) H 03/30/17 20:44 Total Bilirubin 0.2 mg/dL (0.3-1.0) L 03/28/17 05:28 ALT 54 Units/L (7-52) H 03/28/17 05:28 B-Natriuretic Peptide 132 pg/mL (Less than 100) H 03/29/17 13:57 Serum Total Protein 5.9 g/dL (6.4-8.9) L 03/28/17 05:28 Albumin 3.3 g/dL (3.5-5.7) L 03/28/17 05:28 - Clinical Findings Intake & Output: Intake & Output 03/31/17 04/01/17 04/01/17 23:59 07:59 15:59 Intake Total 340 / 340 100 / 100 Output Total 700 / 700 Balance -360 / -360 100 / 100 Weight 137.257 kg Consult Discharge Plan - Plan Referrals: Celso Simpson MD [Primary Care Provider] - 04/03/17 2:00 pm (web request sent sent on 03/27/17. Office should call you with an appointment date and time. If you do not hear from them in the next day, please call the office and schedule a hospital follow up for 5-7days out. Thank you!) Prescriptions: Ipratropium/Albuterol Neb [Duoneb] 3 ml IH Q6H PRN 30 Days inhsol PRN Reason: Shortness Of Breath/Wheezing Nebulizer [Aeroeclipse] 1 each MC Q6H PRN #1 each PRN Reason: Shortness Of Breath/Wheezing Nebulizer Accessories [Sootheneb [id number] Adult Mask] 1 each MC Q6H PRN 30 Days each PRN Reason: Shortness Of Breath/Wheezing Nebulizer Accessories [Sootheneb Whn634 Mesh Cap] 1 each MC Q6H PRN 30 Days each PRN Reason: Shortness Of Breath/Wheezing Nebulizer Accessories [Sootheneb [id number] Med Cup] 1 each MC Q6H PRN 30 Days each PRN Reason: Shortness Of Breath/Wheezing
[2017-04-01 09:50] LABS: BUN/Creatinine Ratio 28 (6-26); Blood Urea Nitrogen 30 mg/dL (6-20); Calcium 8.7 mg/dL (8.6-10.3); Carbon Dioxide 29 mEq/L (23-29); Chloride 94 mEq/L (98-107); Glucose 244 mg/dL (70-105); Osmolality,Calculated 292 (280-300); Potassium 5.2 mEq/L (3.5-5.1); Sodium 134 mEq/L (136-145); eGFR For African Americans > 60 (> 60); eGFR For Non-African Americans > 60 (> 60)
[2017-04-01] MEDS: *HR* Acetylcysteine 20% 600 MG/3 ML ORAL SYRINGE PO SCH ×2 (09:58→20:40)
[2017-04-01] MEDS: Budesonide/Formoterol 80/4.5 MDI IH SCH ×2 (09:58→20:36)
[2017-04-01] MEDS: Furosemide 40 MG/4 ML VIAL IVP SCH (09:58)
[2017-04-01] MEDS: Gabapentin 300 MG CAPSULE PO SCH ×3 (09:58→20:39)
--- NOTE | 2017-04-01 11:29 | Internal Med Progress Note ---
Date of Encounter: 04/01/17 Time of Encounter: 11:27 - Assessment and plan (1) Influenza A Current Visit: Yes Status: Acute Assessment and plan: Influenza antigen testing positive for influenza A. Completed a course of Tamiflu. Continue supportive care with supplemental oxygen, antitussives, bronchodilators. (2) HCAP (healthcare-associated pneumonia) Current Visit: Yes Status: Acute Assessment and plan: Patient was recently discharged from our hospital after being treated for pneumonia. CT angiogram of chest during this admission showed no PE, right middle and lower lobe infectious process. 2 sets of peripheral blood cultures remain negative, completed 8 days of IV antibiotics, will hold antibiotics for now. Continue supportive care and supplemental oxygen. He did receive his pneumococcal immunization. (3) Acute respiratory failure with hypoxia Current Visit: Yes Status: Acute Assessment and plan: Due to influenza, pneumonia and underlying severe COPD. home oxygen evaluation has been completed, and arrangements have been made for portable continuous home oxygen. (4) RITIKA (acute kidney injury) Current Visit: Yes Status: Resolved (5) Acute exacerbation of chronic obstructive airways disease Current Visit: Yes Status: Acute Assessment and plan: Continues to have some dyspnea and wheezing, worse with exertion. Patient is having a prolonged recovery from acute viral bronchitis/COPD exacerbation. Appreciate pulmonology recommendations. Continue to taper down IV steroids as tolerated, continue continuous supplemental oxygen, bronchodilators. When necessary antitussives and Mucinex. Patient educated regarding continuous use of oxygen and not to walk in the room off oxygen. Physical and occupational therapy evaluation. (6) History of pulmonary embolism Current Visit: Yes Status: Chronic Assessment and plan: Patient has history of multiple venous thromboembolism episodes in the past. Continue anticoagulation with Coumadin. INR noted to be 1.7; (7) HTN (hypertension) Current Visit: Yes Status: Chronic Qualifiers: Hypertension type: essential hypertension Qualified Code(s): I10 - Essential (primary) hypertension (8) [place] filter in place Current Visit: Yes Status: Chronic (9) Anxiety Current Visit: Yes Status: Chronic Assessment and plan: increase Xanax to BID PRN; - Subjective Interval history: Improving slightly; continues to remove palpitations, dizziness and shortness of breath on walking a few steps; feels anxious and worried about his health; continues to have coughing spells and leg swelling; no chest pain; - Constitutional Vitals: Temp Pulse Resp BP Pulse Ox 97.7 F 61 18 174/83 93 04/01/17 07:02 04/01/17 07:02 04/01/17 11:23 04/01/17 07:02 04/01/17 11:23 General appearance: Present: mild distress, A&O X 3, morbidly obese, obese, answers questions appropriately - Respiratory Respiratory exam: Present: CTAB (coarse breath sounds B/L), wheezes (slightly improved). Absent: accessory muscle use, rales, rhonchi - Cardiovascular Cardiovascular exam: Present: RRR, +S1, +S2, tachycardia. Absent: diastolic murmur, gallop, rubs, systolic murmur - GI/Abdominal GI/Abdominal exam: Present: normal bowel sounds, soft (obese), no peritoneal signs. Absent: distended, tenderness - Extremities Exam Extremities exam: Present: full ROM, warm, radial pulses palpable and symmetrical. Absent: calf tenderness, cyanotic, pedal edema Internal Medicine: Result - Labs CBC & Chem 7: 03/29/17 05:29 04/01/17 09:14 Labs: BMP 04/01/17 09:14 Sodium 134 L Potassium 5.2 H Chloride 94 L Carbon Dioxide 29 BUN 30 H Creatinine 1.07 Glucose 244 H Calcium 8.7 - ABG Interpretation ABG results: ABG ABG pH 7.42 pH Units (7.32-7.45) 03/30/17 14:52 ABG pCO2 45 mmHg (35-45) 03/30/17 14:52 ABG pO2 75 mmHg (85-104) L 03/30/17 14:52 ABG O2 Saturation 95 % (95-98) 03/30/17 14:52 PT/INR, D-dimer PT 18.9 Seconds (9.4-12.1) H 04/01/17 07:42 Consult Discharge Plan - Plan Referrals: Celso Simpson MD [Primary Care Provider] - 04/03/17 2:00 pm (web request sent sent on 03/27/17. Office should call you with an appointment date and time. If you do not hear from them in the next day, please call the office and schedule a hospital follow up for 5-7days out. Thank you!) Prescriptions: Ipratropium/Albuterol Neb [Duoneb] 3 ml IH Q6H PRN 30 Days inhsol PRN Reason: Shortness Of Breath/Wheezing Nebulizer [Aeroeclipse] 1 each MC Q6H PRN #1 each PRN Reason: Shortness Of Breath/Wheezing Nebulizer Accessories [Sootheneb [id number] Adult Mask] 1 each MC Q6H PRN 30 Days each PRN Reason: Shortness Of Breath/Wheezing Nebulizer Accessories [Sootheneb Its442 Mesh Cap] 1 each MC Q6H PRN 30 Days each PRN Reason: Shortness Of Breath/Wheezing Nebulizer Accessories [Sootheneb Asz129 Med Cup] 1 each MC Q6H PRN 30 Days each PRN Reason: Shortness Of Breath/Wheezing
[2017-04-01] MEDS: Lisinopril 20 MG TABLET PO SCH (12:32)
[2017-04-01] MEDS: tiZANidine 4 MG TABLET PO PRN (14:45)
[2017-04-01] MEDS ORDERED: *HR* Warfarin 2.5 MG TABLET PO ONE (18:00)
--- NOTE | 2017-04-01 22:55 | Event Note ---
Date of Encounter: 04/01/17 Time of Encounter: 22:51 Patient fell Examine patient w/o report of acute MSK pain, moving all 4 extremities , non focal neuro eval He was apparently trying to reach to the telephone and fell A/P - neurocheck q4 for now - ct head w/o contrast - symptom directed msk imaging if he develops localizing pain/symptoms with close monitoring
[2017-04-02] MEDS: MethylPREDNISolone 40 MG/ML VIAL IVP SCH ×2 (01:01→10:17)
[2017-04-02] MEDS ORDERED: *HR* OxyCODONE/APAP 5/325 TABLET PO STA (01:22)
[2017-04-02] MEDS ORDERED: *HR* OxyCODONE Immed Rel 5 MG TABLET PO STA (01:27)
[2017-04-02] MEDS: Ipratropium/Albuterol Neb 3 ML IH SCH ×4 (04:03→11:34)
[2017-04-02] MEDS: *HR* OxyCODONE/APAP 5/325 TABLET PO PRN ×3 (04:20→17:07)
[2017-04-02 07:09] LABS: BUN/Creatinine Ratio 30 (6-26); Blood Urea Nitrogen 30 mg/dL (6-20); Calcium 8.7 mg/dL (8.6-10.3); Carbon Dioxide 30 mEq/L (23-29); Chloride 96 mEq/L (98-107); Glucose 187 mg/dL (70-105); Magnesium 2.4 mg/dL (1.6-2.6); Osmolality,Calculated 295 (280-300); Potassium 5.3 mEq/L (3.5-5.1); Sodium 137 mEq/L (136-145); eGFR For African Americans > 60 (> 60); eGFR For Non-African Americans > 60 (> 60)
[2017-04-02] MEDS: ALPRAZolam 1 MG TABLET PO PRN ×2 (07:19→22:21)
[2017-04-02] MEDS: Budesonide/Formoterol 80/4.5 MDI IH SCH ×2 (07:51→21:00)
[2017-04-02 09:08] LABS: INR 1.8; Prothrombin Time 19.2 Seconds (9.4-12.1)
[2017-04-02] MEDS: *HR* Acetylcysteine 20% 600 MG/3 ML ORAL SYRINGE PO SCH ×2 (10:16→22:22)
[2017-04-02] MEDS: Gabapentin 300 MG CAPSULE PO SCH ×3 (10:17→22:21)
[2017-04-02] MEDS: Furosemide 40 MG/4 ML VIAL IVP SCH (10:17)
[2017-04-02] MEDS: Lisinopril 20 MG TABLET PO SCH (10:17)
[2017-04-02] MEDS: GuaiFENesin/Codeine Oral Soln 5 ML UDC PO PRN ×2 (10:22→17:07)
[2017-04-02] MEDS ORDERED: D5% in Water 1,000 ML IVC PRN (12:29)
[2017-04-02] MEDS ORDERED: *HR* Dextrose 50 % in Water (Syg) 50 ML SYRINGE IVP PRN (12:29)
[2017-04-02] MEDS ORDERED: Dextrose Gel 15 GM/37.5 ML TUBE PO PRN ×2 (12:29)
--- NOTE | 2017-04-02 12:32 | Internal Med Progress Note ---
Date of Encounter: 04/02/17 Time of Encounter: 12:30 - Assessment and plan (1) Syncope Current Visit: Yes Status: Acute Assessment and plan: likely related to underlying viral bronchitis and hypoxia; Telemetry monitoring showed no acute events and patient had Echocardiogram which showed no structural cardiac abnormality; will start beta vita and monitor HR; PT/OT evaluation pending; Qualifiers: Syncope type: unspecified Qualified Code(s): R55 - Syncope and collapse (2) Influenza A Current Visit: Yes Status: Acute Assessment and plan: Influenza antigen testing positive for influenza A. Completed a course of Tamiflu. Continue supportive care with supplemental oxygen, antitussives, bronchodilators. (3) HCAP (healthcare-associated pneumonia) Current Visit: Yes Status: Acute Assessment and plan: Patient was recently discharged from our hospital after being treated for pneumonia. CT angiogram of chest during this admission showed no PE, right middle and lower lobe infectious process. 2 sets of peripheral blood cultures remain negative, completed 8 days of IV antibiotics. Continue supportive care and supplemental oxygen. He did receive his pneumococcal immunization. (4) Acute respiratory failure with hypoxia Current Visit: Yes Status: Acute Assessment and plan: Due to influenza, pneumonia and underlying severe COPD. home oxygen evaluation has been completed, and arrangements have been made for portable continuous home oxygen. Pulmonology has no further recommendations; to continue with daily Lasix; Patient continues to have c/o- cough, dizziness, wheezing, not quite improving to baseline; he may need to go to rehab and he is agreeable; f/up PT/OT evaluation; social contact worker consult; (5) RITIKA (acute kidney injury) Current Visit: Yes Status: Resolved (6) Acute exacerbation of chronic obstructive airways disease Current Visit: Yes Status: Acute Assessment and plan: Continues to have some dyspnea and wheezing, worse with exertion, including syncope. Patient is having a prolonged recovery from acute viral bronchitis/ COPD exacerbation. Appreciate pulmonology recommendations. Change steroids to enteral prednisone; continue continuous supplemental oxygen, bronchodilators. When necessary antitussives and Mucinex. Patient educated regarding continuous use of oxygen and not to walk in the room off oxygen. Physical and occupational therapy evaluation pending. (7) History of pulmonary embolism Current Visit: Yes Status: Chronic Assessment and plan: Patient has history of multiple venous thromboembolism episodes in the past. Continue anticoagulation with Coumadin. INR noted to be 1.8. (8) HTN (hypertension) Current Visit: Yes Status: Chronic Qualifiers: Hypertension type: essential hypertension Qualified Code(s): I10 - Essential (primary) hypertension (9) [place] filter in place Current Visit: Yes Status: Chronic (10) Anxiety Current Visit: Yes Status: Chronic (11) Hyperglycemia Current Visit: Yes Status: Acute Assessment and plan: likely steroid-induced hyperglycemia; check HbA1C; Accucheck blood glucose monitoring, start sliding scale insulin as needed; ADA diet; (12) Hyperkalemia Current Visit: Yes Status: Acute Assessment and plan: will give 15g PO Kayexalate and monitor serum K; low K diet; - Subjective Interval history: Continues to improve but still has coughing bouts associated with dizziness, facial flushing, tachycardia; has wheezing; Was trying to reach for his phone return 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 Absent: accessory muscle use, rales, rhonchi - Cardiovascular Cardiovascular exam: Present: RRR, +S1, +S2, tachycardia. Absent: diastolic murmur, gallop, rubs, systolic murmur - GI/Abdominal GI/Abdominal exam: Present: normal bowel sounds, soft (obese), no peritoneal signs. Absent: distended, tenderness - Extremities Exam Extremities exam: Present: full ROM, pedal edema, warm, radial pulses palpable and symmetrical. Absent: calf tenderness, cyanotic Internal Medicine: Result - Labs CBC & Chem 7: 03/29/17 05:29 04/02/17 06:12 Labs: BMP 04/02/17 06:12 Sodium 137 Potassium 5.3 H Chloride 96 L Carbon Dioxide 30 H BUN 30 H Creatinine 0.99 Glucose 187 H Calcium 8.7 - ABG Interpretation ABG results: ABG ABG pH 7.42 pH Units (7.32-7.45) 03/30/17 14:52 ABG pCO2 45 mmHg (35-45) 03/30/17 14:52 ABG pO2 75 mmHg (85-104) L 03/30/17 14:52 ABG O2 Saturation 95 % (95-98) 03/30/17 14:52 PT/INR, D-dimer PT 19.2 Seconds (9.4-12.1) H 04/02/17 08:43 - Impressions Impressions Head CT 04/01/17 22:20 IMPRESSION: No acute intracranial abnormality or mass. D/ / 04/02/2017 05:30:32 Justus Herman / [employer] Interpreting Provider: Justus Herman Consult Discharge Plan - Plan Referrals: Celso Simpson MD [Primary Care Provider] - 04/03/17 2:00 pm (web request sent sent on 03/27/17. Office should call you with an appointment date and time. If you do not hear from them in the next day, please call the office and schedule a hospital follow up for 5-7days out. Thank you!) Prescriptions: Ipratropium/Albuterol Neb [Duoneb] 3 ml IH Q6H PRN 30 Days inhsol PRN Reason: Shortness Of Breath/Wheezing Nebulizer [Aeroeclipse] 1 each MC Q6H PRN #1 each PRN Reason: Shortness Of Breath/Wheezing Nebulizer Accessories [Sootheneb [id number] Adult Mask] 1 each MC Q6H PRN 30 Days each PRN Reason: Shortness Of Breath/Wheezing Nebulizer Accessories [Sootheneb Aln883 Mesh Cap] 1 each MC Q6H PRN 30 Days each PRN Reason: Shortness Of Breath/Wheezing Nebulizer Accessories [Sootheneb [id number] Med Cup] 1 each MC Q6H PRN 30 Days each PRN Reason: Shortness Of Breath/Wheezing
[2017-04-02 13:57] LABS: Hemoglobin A1C 6.3 %
[2017-04-02] MEDS: Levalbuterol Neb 1.25 MG/3 ML IH SCH ×2 (16:19→21:00)
[2017-04-02] MEDS: Ipratropium Neb 0.5 MG NEBULIZER IH SCH ×2 (16:19→21:00)
[2017-04-02] MEDS: Insulin LISPRO 300 UNITS/3 ML VIAL SQ SCH ×2 (17:06→22:29)
[2017-04-02] MEDS ORDERED: *HR* Warfarin 2.5 MG TABLET PO ONE (18:00)
--- NOTE | 2017-04-02 18:03 | Pulmonology Progress Note ---
Date of Encounter: 04/02/17 Time of Encounter: 11:00 Assessment and Plan (1) Acute exacerbation of chronic obstructive airways disease Current Visit: Yes Status: Acute To continue current regimen of bronchodilators , steroids and antibiotics . Will give total of 7 days of Unasyn . Agree with tapering steroids on discharge will need atleast a 2 week taper. To continue diuresis . Will need 6-8 weeks outpatient follow up . On discharge he will definitely need O2 on exercise need to walk amber before discharge , PT/OT he looks deconditioned . Home bronchodilator , Albuterol prn , Duoneb nebulizer , symbicort 160 bid Will sign off call with questions . (2) Acute respiratory failure with hypoxia Current Visit: Yes Status: Acute Viral exacerbation of COPD with some fluid overload will continue diuresis as tolerated . (3) Pneumonia Current Visit: No Status: Acute To complete unasyn for total 7 days . 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 (7) History of pulmonary embolism Current Visit: Yes Status: Chronic Patient is on Coumadin. to keep INR therapeutic 2.5 -3.0 . INR is Subtherapeutic Subjective Principal diagnosis: COPD exacerbation Interval history: Patient at rest is doing better but on exertion he is still having shortness of breadth cough and sputum production is getting better , denies any chest pain has some shortness of breadth on exertion. 04/01 patient exerted to the bathroom without oxygen. 04/02 Patient is feeling lot better quite not baseline yet Objective PUL Vital signs: Last Vital Signs Temp 97.9 F 04/02/17 16:06 Pulse 90 04/02/17 16:06 Resp 16 04/02/17 16:19 BP 147/84 04/02/17 16:06 Pulse Ox 95 04/02/17 16:19 Auscultation: bilateral: wheezes, rales (basilar rales ) Extremities: edema Results - Laboratory Findings CBC and BMP: 03/29/17 05:29 04/02/17 06:12 ABG ABG pH 7.42 pH Units (7.32-7.45) 03/30/17 14:52 ABG pCO2 45 mmHg (35-45) 03/30/17 14:52 ABG pO2 75 mmHg (85-104) L 03/30/17 14:52 ABG O2 Saturation 95 % (95-98) 03/30/17 14:52 PT/INR, D-dimer PT 19.2 Seconds (9.4-12.1) H 04/02/17 08:43 Abnormal lab findings: Abnormal lab results WBC 11.7 K/mcL (4.3-11.1) H 03/29/17 05:29 RBC 3.98 M/mcL (4.19-5.50) L 03/29/17 05:29 Hgb 12.1 g/dL (12.9-16.9) L 03/29/17 05:29 Hct 37.4 % (37.5-50.1) L 03/29/17 05:29 Immature Gran % 12.3 % (0-4) H 03/29/17 05:29 Nucleated RBCs/100 WBC 0.4 /100 WBC (0) H 03/29/17 05:29 Reactive Lymphocytes Present (Not Present) A 03/23/17 14:35 PT 19.2 Seconds (9.4-12.1) H 04/02/17 08:43 ABG pO2 75 mmHg (85-104) L 03/30/17 14:52 ABG HCO3 30 mEq/L (21-27) H 03/30/17 14:52 ABG Total CO2 31 mEq/L (20-26) H 03/30/17 14:52 ABG Base Excess 4 mEq/L (-2 to 3) H 03/30/17 14:52 Potassium 5.3 mEq/L (3.5-5.1) H 04/02/17 06:12 Chloride 96 mEq/L (98-107) L 04/02/17 06:12 Carbon Dioxide 30 mEq/L (23-29) H 04/02/17 06:12 BUN 30 mg/dL (6-20) H 04/02/17 06:12 BUN/Creatinine Ratio 30 (6-26) H 04/02/17 06:12 Glucose 187 mg/dL (70-105) H 04/02/17 06:12 POC Glucose 161 (58-89) H 04/02/17 16:41 Hemoglobin A1c 6.3 % (-5.6) H 04/02/17 08:43 Total Bilirubin 0.2 mg/dL (0.3-1.0) L 03/28/17 05:28 ALT 54 Units/L (7-52) H 03/28/17 05:28 B-Natriuretic Peptide 132 pg/mL (Less than 100) H 03/29/17 13:57 Serum Total Protein 5.9 g/dL (6.4-8.9) L 03/28/17 05:28 Albumin 3.3 g/dL (3.5-5.7) L 03/28/17 05:28 - Clinical Findings Intake & Output: Intake & Output 04/02/17 04/02/17 04/02/17 07:59 15:59 23:59 Intake Total 120 / 120 Balance 120 / 120 Weight 134.717 kg Consult Discharge Plan - Plan Referrals: Celso Simpson MD [Primary Care Provider] - 04/03/17 2:00 pm (web request sent sent on 03/27/17. Office should call you with an appointment date and time. If you do not hear from them in the next day, please call the office and schedule a hospital follow up for 5-7days out. Thank you!) Prescriptions: Ipratropium/Albuterol Neb [Duoneb] 3 ml IH Q6H PRN 30 Days inhsol PRN Reason: Shortness Of Breath/Wheezing Nebulizer [Aeroeclipse] 1 each MC Q6H PRN #1 each PRN Reason: Shortness Of Breath/Wheezing Nebulizer Accessories [Sootheneb [id number] Adult Mask] 1 each MC Q6H PRN 30 Days each PRN Reason: Shortness Of Breath/Wheezing Nebulizer Accessories [Sootheneb [id number] Mesh Cap] 1 each MC Q6H PRN 30 Days each PRN Reason: Shortness Of Breath/Wheezing Nebulizer Accessories [Sootheneb [id number] Med Cup] 1 each MC Q6H PRN 30 Days each PRN Reason: Shortness Of Breath/Wheezing
[2017-04-02] MEDS: tiZANidine 4 MG TABLET PO PRN (22:21)
[2017-04-03] MEDS: *HR* OxyCODONE/APAP 5/325 TABLET PO PRN ×4 (03:31→22:57)
[2017-04-03] MEDS: GuaiFENesin/Codeine Oral Soln 5 ML UDC PO PRN ×4 (03:32→22:58)
[2017-04-03] MEDS: Levalbuterol Neb 1.25 MG/3 ML IH SCH ×4 (03:54→21:22)
[2017-04-03] MEDS: Ipratropium Neb 0.5 MG NEBULIZER IH SCH ×4 (03:55→21:22)
[2017-04-03 04:18] LABS: Hematocrit 38.1 % (37.5-50.1); Hemoglobin 12.7 g/dL (12.9-16.9); Immature Platelets 3.3 % (1.1-6.1); Mean Corpuscular HGB Conc 33.3 g/dL (31.6-35.5); Mean Corpuscular Hemoglobin 31.1 pg (28.0-33.3); Mean Corpuscular Volume 93.2 fL (83.0-100.0); Mean Platelet Volume 9.3 fL (9.4-12.4); Nucleated Red Blood Cells 0.1 /100 WBC (0); Platelet Count 269 K/mcL (140-400); Red Blood Count 4.09 M/mcL (4.19-5.50)
[2017-04-03 04:24] LABS: INR 1.8; Prothrombin Time 19.6 Seconds (9.4-12.1)
[2017-04-03 05:13] LABS: BUN/Creatinine Ratio 32 (6-26); Blood Urea Nitrogen 29 mg/dL (6-20); Calcium 8.6 mg/dL (8.6-10.3); Carbon Dioxide 33 mEq/L (23-29); Chloride 95 mEq/L (98-107); Glucose 151 mg/dL (70-105); Magnesium 2.4 mg/dL (1.6-2.6); Osmolality,Calculated 295 (280-300); Potassium 4.7 mEq/L (3.5-5.1); Sodium 138 mEq/L (136-145); eGFR For African Americans > 60 (> 60); eGFR For Non-African Americans > 60 (> 60)
[2017-04-03 06:04] LABS: Lymphocytes # 1.8 K/mcL (0.6-4.6); Monocytes # 0.9 K/mcL (0.0-1.3); Neutrophils # 20.2 K/mcL (1.6-8.9)
[2017-04-03 06:05] LABS: Anisocytosis 1+ (Not Present); Platelet Estimate Normal (Normal); Reactive Lymphocytes Present (Not Present)
[2017-04-03] MEDS: Insulin LISPRO 300 UNITS/3 ML VIAL SQ SCH ×4 (08:44→22:00)
[2017-04-03] MEDS: Lisinopril 20 MG TABLET PO SCH (08:49)
[2017-04-03] MEDS: Gabapentin 300 MG CAPSULE PO SCH ×3 (08:49→22:58)
[2017-04-03] MEDS: ALPRAZolam 1 MG TABLET PO PRN ×2 (08:50→22:57)
[2017-04-03] MEDS: *HR* Acetylcysteine 20% 600 MG/3 ML ORAL SYRINGE PO SCH ×2 (08:50→22:58)
[2017-04-03] MEDS: Furosemide 40 MG/4 ML VIAL IVP SCH (08:50)
[2017-04-03] MEDS: tiZANidine 4 MG TABLET PO PRN ×2 (08:51→16:31)
[2017-04-03] MEDS: Budesonide/Formoterol 80/4.5 MDI IH SCH ×2 (10:30→21:22)
--- NOTE | 2017-04-03 11:39 | Internal Med Progress Note ---
Date of Encounter: 04/03/17 Time of Encounter: 11:37 - Assessment and plan (1) Syncope Current Visit: Yes Status: Resolved Assessment and plan: likely related to underlying viral bronchitis and hypoxia; Telemetry monitoring showed no acute events and patient had Echocardiogram which showed no structural cardiac abnormality; continue beta vita and monitor HR; PT/OT evaluation recommends inpatient rehab; social media marketing specialist consulted; Qualifiers: Syncope type: unspecified Qualified Code(s): R55 - Syncope and collapse (2) Influenza A Current Visit: Yes Status: Acute Assessment and plan: Influenza antigen testing positive for influenza A. Completed a course of Tamiflu. Continue supportive care with supplemental oxygen, antitussives, bronchodilators. (3) HCAP (healthcare-associated pneumonia) Current Visit: Yes Status: Acute Assessment and plan: Patient was recently discharged from our hospital after being treated for pneumonia. CT angiogram of chest during this admission showed no PE, right middle and lower lobe infectious process. 2 sets of peripheral blood cultures remain negative, completed 8 days of IV antibiotics. Continue supportive care and supplemental oxygen. He did receive his pneumococcal immunization. (4) Acute respiratory failure with hypoxia Current Visit: Yes Status: Acute Assessment and plan: Due to influenza, pneumonia and underlying severe COPD. O2 requirements stable at this time. home oxygen evaluation has been completed, and arrangements have been made for portable continuous home oxygen. Pulmonology has no further recommendations; to continue with daily Lasix; (5) RITIKA (acute kidney injury) Current Visit: Yes Status: Resolved (6) Acute exacerbation of chronic obstructive airways disease Current Visit: Yes Status: Acute Assessment and plan: Improving. Patient is having a prolonged recovery from acute viral bronchitis/ COPD exacerbation. Appreciate pulmonology recommendations. Continue enteral prednisone, continuous supplemental oxygen, bronchodilators. When necessary antitussives and Mucinex. Physical and occupational therapy evaluation recommend IP rehab placement; (7) History of pulmonary embolism Current Visit: Yes Status: Chronic (8) HTN (hypertension) Current Visit: Yes Status: Chronic Qualifiers: Hypertension type: essential hypertension Qualified Code(s): I10 - Essential (primary) hypertension (9) [place] filter in place Current Visit: Yes Status: Chronic (10) Anxiety Current Visit: Yes Status: Chronic (11) Hyperglycemia Current Visit: Yes Status: Acute Assessment and plan: likely steroid-induced hyperglycemia; HbA1C noted to be 6.3%; blood sugars now improving; Accucheck blood glucose monitoring, continue sliding scale insulin as needed; ADA diet; (12) Hyperkalemia Current Visit: Yes Status: Resolved Assessment and plan: improved with Kayexalate; - Subjective Interval history: Feels better today; still has his symptoms of cough, wheezing, dizziness, all of which have significantly improved; now has generalized weakness as he just worked with PT; HR better today; - Constitutional Vitals: Temp Pulse Resp BP Pulse Ox 98.7 F 73 20 98/60 94 04/03/17 11:11 04/03/17 11:11 04/03/17 11:11 04/03/17 11:11 04/03/17 11:11 General appearance: Present: A&O X 3, obese, answers questions appropriately - Respiratory Respiratory exam: Present: CTAB (coarse breath sounds B/L), wheezes (improving B /L wheezing). Absent: accessory muscle use, rales, rhonchi - Cardiovascular Cardiovascular exam: Present: RRR, +S1, +S2. Absent: diastolic murmur, gallop, rubs, systolic murmur - GI/Abdominal GI/Abdominal exam: Present: normal bowel sounds, soft (obese), no peritoneal signs. Absent: distended, tenderness - Extremities Exam Extremities exam: Present: pedal edema, warm, radial pulses palpable and symmetrical. Absent: calf tenderness, cyanotic Internal Medicine: Result - Labs CBC & Chem 7: 04/03/17 03:48 04/03/17 03:48 Labs: Short CBC 04/03/17 Range/Units 03:48 WBC 23.0 H D (4.3-11.1) K/mcL Hgb 12.7 L (12.9-16.9) g/dL Hct 38.1 (37.5-50.1) % Plt Count 269 (140-400) K/mcL Neutrophils # 20.2 H (1.6-8.9) K/mcL BMP 04/03/17 03:48 Sodium 138 Potassium 4.7 Chloride 95 L Carbon Dioxide 33 H BUN 29 H Creatinine 0.92 Glucose 151 H Calcium 8.6 - ABG Interpretation ABG results: ABG ABG pH 7.42 pH Units (7.32-7.45) 03/30/17 14:52 ABG pCO2 45 mmHg (35-45) 03/30/17 14:52 ABG pO2 75 mmHg (85-104) L 03/30/17 14:52 ABG O2 Saturation 95 % (95-98) 03/30/17 14:52 PT/INR, D-dimer PT 19.6 Seconds (9.4-12.1) H 04/03/17 03:48 - VTE Documentation of Mechanical Device: Intermittent pneumatic compression device Consult Discharge Plan - Plan Referrals: Celso Simpson MD [Primary Care Provider] - 04/03/17 2:00 pm (web request sent sent on 03/27/17. Office should call you with an appointment date and time. If you do not hear from them in the next day, please call the office and schedule a hospital follow up for 5-7days out. Thank you!) Prescriptions: Ipratropium/Albuterol Neb [Duoneb] 3 ml IH Q6H PRN 30 Days inhsol PRN Reason: Shortness Of Breath/Wheezing Nebulizer [Aeroeclipse] 1 each MC Q6H PRN #1 each PRN Reason: Shortness Of Breath/Wheezing Nebulizer Accessories [Sootheneb Gaq274 Adult Mask] 1 each MC Q6H PRN 30 Days each PRN Reason: Shortness Of Breath/Wheezing Nebulizer Accessories [Sootheneb Hci520 Mesh Cap] 1 each MC Q6H PRN 30 Days each PRN Reason: Shortness Of Breath/Wheezing Nebulizer Accessories [Sootheneb Ycl594 Med Cup] 1 each MC Q6H PRN 30 Days each PRN Reason: Shortness Of Breath/Wheezing
[2017-04-03] MEDS: predniSONE 20 MG TABLET PO SCH (11:41)
[2017-04-03] MEDS ORDERED: *HR* Warfarin 3 MG TABLET PO ONE (18:00)
[2017-04-04] MEDS: Levalbuterol Neb 1.25 MG/3 ML IH SCH ×4 (03:11→21:55)
[2017-04-04] MEDS: Ipratropium Neb 0.5 MG NEBULIZER IH SCH ×4 (03:11→21:55)
[2017-04-04] MEDS: GuaiFENesin/Codeine Oral Soln 5 ML UDC PO PRN ×3 (06:06→21:41)
[2017-04-04] MEDS: ALPRAZolam 1 MG TABLET PO PRN ×2 (06:07→15:39)
[2017-04-04] MEDS: *HR* OxyCODONE/APAP 5/325 TABLET PO PRN ×4 (06:07→21:42)
[2017-04-04 07:28] LABS: Hematocrit 39.6 % (37.5-50.1); Hemoglobin 12.9 g/dL (12.9-16.9); Mean Corpuscular HGB Conc 32.6 g/dL (31.6-35.5); Mean Corpuscular Hemoglobin 30.4 pg (28.0-33.3); Mean Corpuscular Volume 93.2 fL (83.0-100.0); Mean Platelet Volume 9.3 fL (9.4-12.4); Platelet Count 210 K/mcL (140-400); Red Blood Count 4.25 M/mcL (4.19-5.50)
[2017-04-04 07:33] LABS: INR 1.7; Prothrombin Time 18.7 Seconds (9.4-12.1)
[2017-04-04 08:42] LABS: Lymphocytes # 0.7 K/mcL (0.6-4.6); Monocytes # 0.7 K/mcL (0.0-1.3); Neutrophils # 16.5 K/mcL (1.6-8.9); Platelet Estimate Normal (Normal)
[2017-04-04] MEDS: Insulin LISPRO 300 UNITS/3 ML VIAL SQ SCH ×4 (09:34→22:13)
[2017-04-04] MEDS: Furosemide 40 MG/4 ML VIAL IVP SCH ×2 (09:35→10:30)
[2017-04-04] MEDS: *HR* Acetylcysteine 20% 600 MG/3 ML ORAL SYRINGE PO SCH ×2 (09:35→21:32)
[2017-04-04] MEDS: Gabapentin 300 MG CAPSULE PO SCH ×3 (09:35→21:32)
[2017-04-04] MEDS: Lisinopril 20 MG TABLET PO SCH (09:35)
[2017-04-04] MEDS: predniSONE 20 MG TABLET PO SCH (09:35)
[2017-04-04] MEDS: Budesonide/Formoterol 80/4.5 MDI IH SCH ×2 (10:30→21:55)
[2017-04-04] MEDS: Furosemide 40 MG TABLET PO SCH ×2 (11:34→18:02)
--- NOTE | 2017-04-04 14:34 | Discharge Summary ---
<Stephani Park - Last Filed: 04/05/17 15:48> Date of Encounter: 04/04/17 Time of Encounter: 11:15 - Discharge Diagnosis (1) Syncope Priority: Primary Status: Resolved Qualifiers: Syncope type: unspecified Qualified Code(s): R55 - Syncope and collapse (2) Influenza A Priority: Primary Status: Acute (3) HCAP (healthcare-associated pneumonia) Priority: Primary Status: Acute (4) Acute respiratory failure with hypoxia Priority: Primary Status: Acute (5) RITIKA (acute kidney injury) Priority: Primary Status: Resolved (6) Acute exacerbation of chronic obstructive airways disease Priority: Primary Status: Acute (7) History of pulmonary embolism Priority: Secondary Status: Chronic (8) HTN (hypertension) Priority: Secondary Status: Chronic Qualifiers: Hypertension type: essential hypertension Qualified Code(s): I10 - Essential (primary) hypertension (9) [place] filter in place Priority: Secondary Status: Chronic (10) Anxiety Priority: Secondary Status: Chronic (11) Hyperglycemia Priority: Primary Status: Acute (12) Hyperkalemia Priority: Primary Status: Resolved - Discharge Medications Prescriptions: OxyCODONE/APAP 5/325 [Percocet 5/325 MG] 1 each PO Q4HR PRN #15 tablet PRN Reason: Pain Furosemide [Lasix] 40 mg PO BID #60 tablet Ipratropium/Albuterol Neb [Duoneb] 3 ml IH Q6H PRN 30 Days inhsol PRN Reason: Shortness Of Breath/Wheezing Metoprolol [Lopressor] 12.5 mg PO BID #30 tablet Nebulizer [Aeroeclipse] 1 each MC Q6H PRN #1 each PRN Reason: Shortness Of Breath/Wheezing Nebulizer Accessories [Sootheneb [id number] Adult Mask] 1 each MC Q6H PRN 30 Days each PRN Reason: Shortness Of Breath/Wheezing Nebulizer Accessories [Sootheneb Fcs565 Mesh Cap] 1 each MC Q6H PRN 30 Days each PRN Reason: Shortness Of Breath/Wheezing Nebulizer Accessories [Sootheneb Nxs104 Med Cup] 1 each MC Q6H PRN 30 Days each PRN Reason: Shortness Of Breath/Wheezing predniSONE [PredniSONE] 10 mg PO TAPER #39 tablet Tizanidine HCl [Zanaflex] 4 mg PO TID PRN #10 capsule PRN Reason: Muscle Spasm Home Medications: Gabapentin [Neurontin] 300 mg PO TID 03/27/15 [History] Omeprazole [PriLOSEC] 40 mg PO DAILY@0630 #30 capsule 08/16/15 [Rx] DULoxetine [Cymbalta] 30 mg PO DAILY 02/27/17 [History] Albuterol Sulfate [Albuterol Inhaler] 2 puff IH Q4HR PRN #1 hfa.aer.ad 03/06/17 [Rx] Budesonide/Formoterol 80/4.5 [Symbicort 80/4.5] 2 puff IH BIDR #1 inhaler 03/06 [Rx] Atorvastatin [Lipitor] 10 mg PO HS 03/23/17 [History] Diclofenac Sodium [Voltaren] 1 appl TP TID PRN 03/23/17 [History] Lisinopril [Zestril] 20 mg PO DAILY 03/23/17 [History] Warfarin [Coumadin] 10 mg PO 1800 03/23/17 [History] Ipratropium/Albuterol Neb [Duoneb] 3 ml IH Q6H PRN 30 Days inhsol 03/31/17 [Rx] Nebulizer Accessories [Sootheneb Akl420 Adult Mask] 1 each Q6H PRN 30 Days each 03/31/17 [Rx] Nebulizer Accessories [Sootheneb Toi977 Med Cup] 1 each Q6H PRN 30 Days each 03/31/17 [Rx] Nebulizer Accessories [Sootheneb Mqs607 Mesh Cap] 1 each Q6H PRN 30 Days each 03/31/17 [Rx] Nebulizer [Aeroeclipse] 1 each Q6H PRN #1 each 03/31/17 [Rx] ALPRAZolam [Xanax 1 MG Tablet] 1 mg PO DAILY PRN #10 04/04/17 [Rx] Furosemide [Lasix] 40 mg PO BIDDIURETIC tablet 04/04/17 [Rx] Ipratropium Neb [Atrovent Neb] 0.5 mg IH [id number] PRN inhsol 04/04/17 [Rx] Levalbuterol Neb [Xopenex Neb] 1.25 mg IH [id number] PRN vial.neb 04/04/17 [Rx] Metoprolol [Lopressor] 12.5 mg PO BID tablet 04/04/17 [Rx] OxyCODONE/APAP 5/325 [Percocet 5/325 MG] 1 each PO Q4HR PRN #15 tablet 04/04/17 [Rx] Tizanidine HCl [Zanaflex] 4 mg PO TID PRN #10 capsule 04/04/17 [Rx] predniSONE [PredniSONE] 60 mg PO DAILY 9 Days tablet 04/04/17 [Rx] Furosemide [Lasix] 40 mg PO BID #60 tablet 04/05/17 [Rx] Metoprolol [Lopressor] 12.5 mg PO BID #30 tablet 04/05/17 [Rx] predniSONE [PredniSONE] 10 mg PO TAPER #39 tablet 04/05/17 [Rx] Allergies/Adverse Reactions: 3 Allergy/AdvReac Type Severity Reaction Status Date / Time No Known Allergies Allergy Verified 02/18/17 16:01 Procedures/tests Complete & Pending: Procedures Performed prior 72 hours Category Date Time Status CT head/brain wo con [CT] Stat Cat Scan 04/01/17 22:20 Completed Date of admission: 03/23/17 19:26 Primary care physician: Celso Simpson MD Consults: 03/29/17 10:29 Consult to Pulmonology [CONS] Routine Consulting Provider: [facility] Reason for Consult: Acute exacerbation of COPD, Influenza A, PNA Call Completed: Yes 04/01/17 11:26 Consult to Occupational Therapy [CONS] Routine Comment: Evaluate, develop and implement POC Reason for Consult: Dizziness, fatigue, COPD, Flu Consult to Physical Therapy [CONS] Routine Comment: Evaluate, develop and implement POC Reason for Consult: Dizziness, fatigue, COPD, Flu 04/03/17 10:50 Consult to Trench Digger [CONS] Routine Reason for SW Consult: IPR placement Discharging clinician: Stephani Park Anticipated date of discharge: 04/04/17 - Patient Status Disposition: Home Health Service Functional capacity at discharge: uses cane/walker Overall status at discharge: patient is progressing back to baseline - Discharge Instructions Follow Up With: Celso Simpson MD [Primary Care Provider] - 04/11/17 2:00 pm () Additional Instructions: F/up with Pulmonology in 4-6 weeks F/up for Sleep studies as outpatient - Diet and Activity Activity: as per physical therapy, wear oxygen at all times Diet: low fat, low cholesterol, low salt diet Hospital course: Mr. Oliva is a 57 year old male with the above medical problems, who was admitted with cough,shortness of breath and weakness. He was recently discharged from our hospital after being treated for Pneumonia. He tested positive for Influenza and was started on Tamiflu, along with broad spectrum antibiotics for suspected Pneumonia. He had acute COPD flare-up and was given extended duration of IV steroids, bronchodilators and supplemental O2. Patient had an extremely slow recovery with significant coughing, wheezing, dyspnea and dizziness and high O2 requirements. Pulmonology was consulted and recommended ABG, Echocardiogram to check for cardiac etiology and also started patient on Lasix due to pedal edema. ABG showed no CO2 retention and he would not qualify for BiPAP, but was recommended outpatient sleep studies. Echo showed preserved EF and no gross abnormalities. Blood cultures remained negative and he completed 7 days of IV antibiotics in house, along with 5 days of Tamiflu. His steroids are changed to enteral Prednisone with long taper. PT/OPT evaluation recommended inpatient rehab.His O2 requirements gradually improved and he is requiring 2L/min via NC. He also had a syncopal episode during this admission, which is likely due to hypoxia and acute Flu symptoms. Patient also had significant sinus tachycardia, which responded to low dose beta vita and changing to Xopenex. He is now medically stable for discharge to rehab pending insurance precertification. - Time Spent with Patient Total time spent providing and/or coordinating discharge services: Greater than 30 minutes (50 min) - Constitutional Vitals: Temp Pulse Resp BP Pulse Ox 97.9 F 69 18 125/71 94 04/04/17 11:44 04/04/17 11:44 04/04/17 11:44 04/04/17 11:44 04/04/17 11:44 General appearance: Present: A&O X 3, morbidly obese, answers questions appropriately - Respiratory Respiratory exam: Present: CTAB, wheezes (B/L wheezing, improving). Absent: accessory muscle use, rales, rhonchi - VTE Documentation of Mechanical Device: Intermittent pneumatic compression device <Jumana Pat M - Last Filed: 04/05/17 18:51> Date of Encounter: 04/05/17 Time of Encounter: 12:09 - Discharge Diagnosis (1) Acute exacerbation of chronic obstructive airways disease Priority: Primary Status: Acute (2) History of pulmonary embolism Priority: Secondary Status: Chronic (3) HTN (hypertension) Priority: Secondary Status: Chronic Qualifiers: Hypertension type: essential hypertension Qualified Code(s): I10 - Essential (primary) hypertension (4) RITIKA (acute kidney injury) Priority: Primary Status: Resolved (5) HCAP (healthcare-associated pneumonia) Priority: Primary Status: Acute (6) Obesity (BMI 30-39.9) Priority: Secondary Status: Chronic (7) Influenza A Priority: Primary Status: Acute (8) Syncope Priority: Primary Status: Resolved Qualifiers: Syncope type: unspecified Qualified Code(s): R55 - Syncope and collapse Date of admission: 03/23/17 19:26 Primary care physician: Celso Simpson MD Consults: 03/29/17 10:29 Consult to Pulmonology [CONS] Routine Consulting Provider: [facility] Reason for Consult: Acute exacerbation of COPD, Influenza A, PNA Call Completed: Yes 04/01/17 11:26 Consult to Occupational Therapy [CONS] Routine Comment: Evaluate, develop and implement POC Reason for Consult: Dizziness, fatigue, COPD, Flu Consult to Physical Therapy [CONS] Routine Comment: Evaluate, develop and implement POC Reason for Consult: Dizziness, fatigue, COPD, Flu 04/03/17 10:50 Consult to Trench Digger [CONS] Routine Reason for SW Consult: IPR placement Hospital course: Mr. Oliva is a 57 year old male DVT, PE with IVC filter SABINO De La Garza, who was recently admitted to this hospital February for pneumonia. He stated since he was discharged from the edition he began to improve somewhat until about 3 days prior to this admission when he began to experience nausea vomiting fevers cough and general malaise. He had a fever on Monday of 103 and has been growing increasingly short of breath with wheezing. He presented to the ER with the above complaints. Upon presentation patient was hypotensive with systolic pressure in the 80s and hypoxic 92 and SPO2 on room air lab work revealed no leukocytosis. Chest x-ray showed no acute process CTA was performed which did reveal subtle groundglass opacities in right middle and lower lobe. He was given IV fluids and blood cultures were obtained and initiated on Rocephin and azithromycin and given DuoNeb's. He was admitted for further workup and evaluation. While hospitalized the patient was seen by pulmonology as well. He was put on IV steroids. He was initially put on IV broad-spectrum antibiotics. He also received 5 days of Tamiflu and positive transit. Cultures remain negative. He had a slow course of improvement while hospitalized. Eventually he was put on oral steroids. He will be discharged on a taper. He also finished a course of IV antibiotics while hospitalized. He was hospitalized for 13 days. We have wanted patient to be placed in a custodial facility however his insurance would not cover. We ended up setting him up with home health care services. While hospitalized the patient did experience a syncopal episode for which an echocardiogram was ordered and showed no significant findings. His bili that his syncope is likely related from coughing/hypoxia/viral bronchitis. - Time Spent with Patient Total time spent providing and/or coordinating discharge services: Greater than 30 minutes - Constitutional Vitals: Temp Pulse Resp BP Pulse Ox 97.4 F L 68 18 114/73 95 04/05/17 08:00 04/05/17 08:00 04/05/17 10:09 04/05/17 08:00 04/05/17 10:09
--- NOTE | 2017-04-04 14:36 | Physician Discharge Referral ---
ExtendedCare Referral Info Transfer To: [place] Provider in Charge: [place] Provider in Charge after Transfer: PCP Institutional Level of Care: Intermediate - Diagnosis (1) Syncope Priority: Primary Status: Resolved (2) Influenza A Priority: Primary Status: Acute (3) HCAP (healthcare-associated pneumonia) Priority: Primary Status: Acute (4) Acute respiratory failure with hypoxia Priority: Primary Status: Acute (5) RITIKA (acute kidney injury) Priority: Primary Status: Resolved (6) Acute exacerbation of chronic obstructive airways disease Priority: Primary Status: Acute (7) History of pulmonary embolism Priority: Secondary Status: Chronic (8) HTN (hypertension) Priority: Secondary Status: Chronic (9) [place] filter in place Priority: Secondary Status: Chronic (10) Anxiety Priority: Secondary Status: Chronic (11) Hyperglycemia Priority: Primary Status: Acute (12) Hyperkalemia Priority: Primary Status: Resolved Expected Duration of Placement: 2 weeks Prognosis: Fair Aware of Diagnosis: Patient Aware of Prognosis: Patient - Transfer Medications Prescriptions: OxyCODONE/APAP 5/325 [Percocet 5/325 MG] 1 each PO Q4HR PRN #15 tablet PRN Reason: Pain Ipratropium/Albuterol Neb [Duoneb] 3 ml IH Q6H PRN 30 Days inhsol PRN Reason: Shortness Of Breath/Wheezing Nebulizer [Aeroeclipse] 1 each MC Q6H PRN #1 each PRN Reason: Shortness Of Breath/Wheezing Nebulizer Accessories [Sootheneb [id number] Adult Mask] 1 each MC Q6H PRN 30 Days each PRN Reason: Shortness Of Breath/Wheezing Nebulizer Accessories [Sootheneb [id number] Mesh Cap] 1 each MC Q6H PRN 30 Days each PRN Reason: Shortness Of Breath/Wheezing Nebulizer Accessories [Sootheneb [id number] Med Cup] 1 each MC Q6H PRN 30 Days each PRN Reason: Shortness Of Breath/Wheezing Tizanidine HCl [Zanaflex] 4 mg PO TID PRN #10 capsule PRN Reason: Muscle Spasm Home Medications: Gabapentin [Neurontin] 300 mg PO TID 03/27/15 [History] Omeprazole [PriLOSEC] 40 mg PO DAILY@0630 #30 capsule 08/16/15 [Rx] DULoxetine [Cymbalta] 30 mg PO DAILY 02/27/17 [History] Albuterol Sulfate [Albuterol Inhaler] 2 puff IH Q4HR PRN #1 hfa.aer.ad 03/06/17 [Rx] Budesonide/Formoterol 80/4.5 [Symbicort 80/4.5] 2 puff IH BIDR #1 inhaler 03/06 [Rx] Atorvastatin [Lipitor] 10 mg PO HS 03/23/17 [History] Diclofenac Sodium [Voltaren] 1 appl TP TID PRN 03/23/17 [History] Lisinopril [Zestril] 20 mg PO DAILY 03/23/17 [History] Warfarin [Coumadin] 10 mg PO 1800 03/23/17 [History] Ipratropium/Albuterol Neb [Duoneb] 3 ml IH Q6H PRN 30 Days inhsol 03/31/17 [Rx] Nebulizer Accessories [Sootheneb [id number] Adult Mask] 1 each Q6H PRN 30 Days each 03/31/17 [Rx] Nebulizer Accessories [Sootheneb [id number] Med Cup] 1 each Q6H PRN 30 Days each 03/31/17 [Rx] Nebulizer Accessories [Sootheneb Sga686 Mesh Cap] 1 each Q6H PRN 30 Days each 03/31/17 [Rx] Nebulizer [Aeroeclipse] 1 each Q6H PRN #1 each 03/31/17 [Rx] ALPRAZolam [Xanax 1 MG Tablet] 1 mg PO DAILY PRN #10 04/04/17 [Rx] Furosemide [Lasix] 40 mg PO BIDDIURETIC tablet 04/04/17 [Rx] Ipratropium Neb [Atrovent Neb] 0.5 mg IH [id number] PRN inhsol 04/04/17 [Rx] Levalbuterol Neb [Xopenex Neb] 1.25 mg IH [id number] PRN vial.neb 04/04/17 [Rx] Metoprolol [Lopressor] 12.5 mg PO BID tablet 04/04/17 [Rx] OxyCODONE/APAP 5/325 [Percocet 5/325 MG] 1 each PO Q4HR PRN #15 tablet 04/04/17 [Rx] Tizanidine HCl [Zanaflex] 4 mg PO TID PRN #10 capsule 04/04/17 [Rx] predniSONE [PredniSONE] 60 mg PO DAILY 9 Days tablet 04/04/17 [Rx] Allergies/Adverse Reactions: 3 Allergy/AdvReac Type Severity Reaction Status Date / Time No Known Allergies Allergy Verified 02/18/17 16:01 - Respiratory Orders Oxygen / L per min (2L/min via [place]) Smoking Cessation: Smoking cessation has been advised. For more information, call the [place] Tobacco Quit Line at 2-689-VPBI-NOW. - Advance Directives Code Status: Full Code - Mobility Orders Ambulate - Rehabiliation Orders Rehab Potential: Fair Rehab Orders: ROM Exercises, Evaluation for Physical Therapy, Evaluation for Occupational Therapy - Diet Orders Cardiac CERTIFICATION: I certify that the transfer of the above named patient to an Extended Care Facility is necessary for the continuing treatment of the diagnosis listed. The above information is true and accurate reflection of patient's current condition. Confidential - Redisclosure prohibited without a patient's written consent.
[2017-04-04] MEDS ORDERED: *HR* Warfarin 3 MG TABLET PO ONE (18:00)
[2017-04-04] MEDS: tiZANidine 4 MG TABLET PO PRN (21:41)
[2017-04-05] MEDS: Levalbuterol Neb 1.25 MG/3 ML IH SCH ×3 (04:00→16:20)
[2017-04-05] MEDS: Ipratropium Neb 0.5 MG NEBULIZER IH SCH ×3 (04:00→16:20)
[2017-04-05] MEDS: *HR* OxyCODONE/APAP 5/325 TABLET PO PRN ×3 (04:52→15:32)
[2017-04-05] MEDS: GuaiFENesin/Codeine Oral Soln 5 ML UDC PO PRN ×3 (04:52→15:32)
[2017-04-05] MEDS: ALPRAZolam 1 MG TABLET PO PRN ×2 (04:52→18:25)
[2017-04-05 07:18] LABS: INR 1.7; Prothrombin Time 18.8 Seconds (9.4-12.1)
[2017-04-05] MEDS: predniSONE 20 MG TABLET PO SCH (08:25)
[2017-04-05] MEDS: Gabapentin 300 MG CAPSULE PO SCH ×2 (08:26→15:32)
[2017-04-05] MEDS: Lisinopril 20 MG TABLET PO SCH (08:26)
[2017-04-05] MEDS: Furosemide 40 MG TABLET PO SCH ×2 (08:26→17:48)
[2017-04-05] MEDS: Insulin LISPRO 300 UNITS/3 ML VIAL SQ SCH ×3 (08:27→17:48)
[2017-04-05] MEDS: *HR* Acetylcysteine 20% 600 MG/3 ML ORAL SYRINGE PO SCH (08:27)
[2017-04-05] MEDS: Budesonide/Formoterol 80/4.5 MDI IH SCH (10:09)
--- NOTE | 2017-04-05 12:12 | Physician Discharge Referral ---
- Diagnosis (1) Acute exacerbation of chronic obstructive airways disease Status: Acute (2) History of pulmonary embolism Priority: Secondary Status: Chronic (3) HTN (hypertension) Priority: Secondary Status: Chronic (4) RITIKA (acute kidney injury) Priority: Primary Status: Resolved (5) HCAP (healthcare-associated pneumonia) Priority: Primary Status: Acute (6) Obesity (BMI 30-39.9) Priority: Secondary Status: Chronic (7) Influenza A Priority: Primary Status: Acute (8) Syncope Priority: Primary Status: Resolved - Respiratory Orders Smoking Cessation: Smoking cessation has been advised. For more information, call the [place] Tobacco Quit Line at 1-536-MVDK-NOW. - Diet/Nutrition Diet/Nutrition Orders: Regular (diabetic) - Services Needed Following services are medically necessary services: Nursing, Home Health Aide - Transfer Medications Prescriptions: OxyCODONE/APAP 5/325 [Percocet 5/325 MG] 1 each PO Q4HR PRN #15 tablet PRN Reason: Pain Ipratropium/Albuterol Neb [Duoneb] 3 ml IH Q6H PRN 30 Days inhsol PRN Reason: Shortness Of Breath/Wheezing Nebulizer [Aeroeclipse] 1 each MC Q6H PRN #1 each PRN Reason: Shortness Of Breath/Wheezing Nebulizer Accessories [Sootheneb Sma100 Adult Mask] 1 each MC Q6H PRN 30 Days each PRN Reason: Shortness Of Breath/Wheezing Nebulizer Accessories [Sootheneb Nlh572 Mesh Cap] 1 each MC Q6H PRN 30 Days each PRN Reason: Shortness Of Breath/Wheezing Nebulizer Accessories [Sootheneb [id number] Med Cup] 1 each MC Q6H PRN 30 Days each PRN Reason: Shortness Of Breath/Wheezing Tizanidine HCl [Zanaflex] 4 mg PO TID PRN #10 capsule PRN Reason: Muscle Spasm Home Medications: Gabapentin [Neurontin] 300 mg PO TID 03/27/15 [History] Omeprazole [PriLOSEC] 40 mg PO DAILY@0630 #30 capsule 08/16/15 [Rx] DULoxetine [Cymbalta] 30 mg PO DAILY 02/27/17 [History] Albuterol Sulfate [Albuterol Inhaler] 2 puff IH Q4HR PRN #1 hfa.aer.ad 03/06/17 [Rx] Budesonide/Formoterol 80/4.5 [Symbicort 80/4.5] 2 puff IH BIDR #1 inhaler 03/06 [Rx] Atorvastatin [Lipitor] 10 mg PO HS 03/23/17 [History] Diclofenac Sodium [Voltaren] 1 appl TP TID PRN 03/23/17 [History] Lisinopril [Zestril] 20 mg PO DAILY 03/23/17 [History] Warfarin [Coumadin] 10 mg PO 1800 03/23/17 [History] Ipratropium/Albuterol Neb [Duoneb] 3 ml IH Q6H PRN 30 Days inhsol 03/31/17 [Rx] Nebulizer Accessories [Sootheneb Swj187 Adult Mask] 1 each Q6H PRN 30 Days each 03/31/17 [Rx] Nebulizer Accessories [Sootheneb Bso008 Med Cup] 1 each Q6H PRN 30 Days each 03/31/17 [Rx] Nebulizer Accessories [Sootheneb Wjr385 Mesh Cap] 1 each Q6H PRN 30 Days each 03/31/17 [Rx] Nebulizer [Aeroeclipse] 1 each Q6H PRN #1 each 03/31/17 [Rx] ALPRAZolam [Xanax 1 MG Tablet] 1 mg PO DAILY PRN #10 04/04/17 [Rx] Furosemide [Lasix] 40 mg PO BIDDIURETIC tablet 04/04/17 [Rx] Ipratropium Neb [Atrovent Neb] 0.5 mg IH [id number] PRN inhsol 04/04/17 [Rx] Levalbuterol Neb [Xopenex Neb] 1.25 mg IH [id number] PRN vial.neb 04/04/17 [Rx] Metoprolol [Lopressor] 12.5 mg PO BID tablet 04/04/17 [Rx] OxyCODONE/APAP 5/325 [Percocet 5/325 MG] 1 each PO Q4HR PRN #15 tablet 04/04/17 [Rx] Tizanidine HCl [Zanaflex] 4 mg PO TID PRN #10 capsule 04/04/17 [Rx] predniSONE [PredniSONE] 60 mg PO DAILY 9 Days tablet 04/04/17 [Rx] Allergies/Adverse Reactions: 3 Allergy/AdvReac Type Severity Reaction Status Date / Time No Known Allergies Allergy Verified 02/18/17 16:01 Certification: Further, I certify that my clinical findings support that this patient is homebound (i.e. absences from home require considerable and taxing effort and are for medical reasons or adventism services or infrequently or short duration when for other reasons) because: Homebound Reason: Patient requires assistance of a person or device to safely leave home Attestation: My signature below is to certify that this patient is under my care and that I, or nurse practitioner, or a physician's dietetic assistant working with me, has a face-to -face encounter with this patient.
[2017-04-05] MEDS ORDERED: FLUARIX QUAD 2017-18 36MOS UP/PF 0.5 ML SYRINGE IM ONE (14:28)
[2017-04-05 16:38] VITALS: BP 109/71
[2017-04-05] MEDS ORDERED: *HR* Warfarin 3 MG TABLET PO ONE (18:00)
== END 2017-04-05 18:38 | disposition home health service (06) | DRG 193 ==
LOC: EMEROO 13:59 → 3BNU 13:59 → 2ANU 13:59 → SUATTDRO 19:26 → 2ANU 20:40
PROVIDERS: ADMIT Pediatrics; ATTEND Internal Medicine

== ENCOUNTER 2017-04-16 17:05 | Observation (INO) ==
--- NOTE | 2017-04-16 17:24 | Emergency Department Note ---
Disposition Clinical Impression: COPD exacerbation, Hypoxia, Unable to ambulate, Right hip pain Disposition: Admitted As Inpatient Condition: Fair Time of Disposition: 19:37 Fall HPI - General Chief Complaint: ED Fall Stated Complaint: ERNST,right hip/knee pain s/p falls Time Seen by Provider: 04/16/17 17:19 Source: patient Mode of arrival: ambulatory Limitations: no limitations Nursing Notes Reviewed: Yes Vital Signs Reviewed: Yes - History of Present Illness HPI Narrative: Patient is a 57 yo male with PMHx of COPD, recent hospital stay and discharged approximately 10- 11 days ago for influenza and pneumonia. He was sent home on new [place] O2 at 2L due to continued hypoxia at the end of his hospital stay. He also states that he takes albuterol and Advair daily for COPD. Over the past 3- 4 days, he has had worsening wheeze, shortness of breath, has been lightheaded and dizzy. He has checked his oxygen at home and at times it has been 84%. When he gets lightheaded, he falls. He has had 2 falls. He is fell onto his left knee and also onto his right hip. He complains of pain in both of these areas. He states that the pain in his right hip is very significant, he is unable to bear weight fully on that extremity. Denies any numbness, tingling, weakness. Denies any chest pain, fevers, abdominal pain. He does have a rash on the center of his chest that he states has been present before when on prednisone, does not itch or burn, is not painful. Not currently on any antibiotics or prednisone but was treated with both during his hospital stay. - Related Data Home Medications Medication Instructions Recorded Confirmed Gabapentin [Neurontin] 300 mg PO TID 03/27/15 03/23/17 DULoxetine [Cymbalta] 30 mg PO DAILY 02/27/17 03/23/17 Atorvastatin [Lipitor] 10 mg PO HS 03/23/17 03/23/17 Diclofenac Sodium [Voltaren] 1 appl TP TID PRN 03/23/17 03/23/17 Lisinopril [Zestril] 20 mg PO DAILY 03/23/17 03/23/17 Warfarin [Coumadin] 10 mg PO 1800 03/23/17 03/23/17 Previous Rx's Medication Instructions Recorded Omeprazole [PriLOSEC] 40 mg PO DAILY@0630 #30 capsule 08/16/15 Albuterol Sulfate [Albuterol 2 puff IH Q4HR PRN #1 hfa.aer.ad 03/06/17 Inhaler] Budesonide/Formoterol 80/4.5 2 puff IH BIDR #1 inhaler 03/06/17 [Symbicort 80/4.5] Ipratropium/Albuterol Neb [Duoneb] 3 ml IH Q6H PRN 30 Days inhsol 03/31/17 Nebulizer Accessories [Sootheneb 1 each MC Q6H PRN 30 Days each 03/31/17 [id number] Adult Mask] Nebulizer Accessories [Sootheneb 1 each MC Q6H PRN 30 Days each 03/31/17 [id number] Med Cup] Nebulizer Accessories [Sootheneb 1 each MC Q6H PRN 30 Days each 03/31/17 [id number] Mesh Cap] Nebulizer [Aeroeclipse] 1 each MC Q6H PRN #1 each 03/31/17 ALPRAZolam [Xanax 1 MG Tablet] 1 mg PO DAILY PRN #10 04/04/17 Furosemide [Lasix] 40 mg PO BIDDIURETIC tablet 04/04/17 Ipratropium Neb [Atrovent Neb] 0.5 mg IH [id number] PRN inhsol 04/04/17 Levalbuterol Neb [Xopenex Neb] 1.25 mg IH [id number] PRN vial.neb 04/04/17 Metoprolol [Lopressor] 12.5 mg PO BID tablet 04/04/17 OxyCODONE/APAP 5/325 [Percocet 1 each PO Q4HR PRN #15 tablet 04/04/17 5/325 MG] Tizanidine HCl [Zanaflex] 4 mg PO TID PRN #10 capsule 04/04/17 predniSONE [PredniSONE] 60 mg PO DAILY 9 Days tablet 04/04/17 Furosemide [Lasix] 40 mg PO BID #60 tablet 04/05/17 Metoprolol [Lopressor] 12.5 mg PO BID #30 tablet 04/05/17 predniSONE [PredniSONE] 10 mg PO TAPER #39 tablet 04/05/17 Allergies Allergy/AdvReac Type Severity Reaction Status Date / Time No Known Allergies Allergy Verified 04/16/17 17:13 All systems ED: reviewed and negative except as stated. Constitutional: Denies: fever Cardiovascular: Reports: dyspnea on exertion. Denies: chest pain Respiratory: Reports: dyspnea Gastrointestinal: Denies: abdominal pain, nausea, vomiting, diarrhea, constipation, hematemesis Musculoskeletal: Reports: arthralgia, myalgia Integumentary: Reports: rash Fall PMH - Past Medical History Medical history: Reports: COPD, DVT, hypertension, pulmonary embolus Surgical history: Reports: non-contributory Psychiatric history: Reports: anxiety - Social History Smoking Status: Former smoker Alcohol use: Reports: none Drug use: Reports: none Physical Exam - General Limitations: no limitations General appearance: alert, in no apparent distress - Head Head exam: atraumatic, normocephalic, normal inspection - Eye Eye exam: Present: normal appearance, PERRL, EOMI - ENT ENT exam: normal exam, normal oropharynx, mucous membranes moist - Neck Neck exam: Present: normal inspection, full ROM, trachea midline - Chest Chest inspection: Present: symmetric chest wall rise. Absent: tenderness - Respiratory Respiratory exam: Present: respiratory distress (mild to moderate), wheezes ( significant wheeze in all lung sahu), accessory muscle use (mild to moderate) - Cardiovascular Cardiovascular exam: Present: normal rhythm, tachycardia, normal heart sounds - Abdominal Exam Abdominal exam: Present: soft, Non-Tender. Absent: tenderness, distention, guarding, rebound, rigidity - Extremities Exam Extremities exam: Present: normal inspection, full ROM. Absent: tenderness, pedal edema - Back Exam Back exam: Present: normal inspection, full ROM. Absent: tenderness - Neurological Exam Neurological exam: Present: alert, oriented X3 - Psychiatric Psychiatric exam: Present: normal affect, normal mood - Skin Skin exam: Present: warm, dry, intact, normal color, rash (macular-papular rash on epigastric region, no ulceration, vesicles, or bullae. ) Course Course Narrative: Patient normally hypertensive. The rest of the vitals were within normal limits. Physical exam shows significant wheeze throughout all lung sahu. Patient is using accessory muscles. Currently on 2 L nasal cannula oxygen. Abdomen soft and nontender. He does have an epigastric rash: macular-papular rash on epigastric region, no ulceration, vesicles, or bullae. Patient has tenderness to the patellar region on the left knee along with right lateral hip/ greater trochanter pain and pain with flexion and extension. We will obtain basic blood work, EKG, troponin, chest x-ray to assess for shortness of breath, we will obtain x-ray of the right hip and left knee due to fall and pain. 19:34 CBC and BMP shows no major abnormalities. Troponin negative. BNP negative. Chest x-ray negative for any acute cardiopulmonary process. Imaging of the knee and right hip were negative for any fracture. However, patient was unable to get up out of bed and ambulate, bear any weight on the right lower extremity. He also is still short of breath and has wheeze despite DuoNeb treatment. We will admit for COPD exacerbation. However, will go ahead and CT the right hip for occult fracture and x-ray the right knee and tib-fib as well to assess for any referred pain down explained patient's inability to ambulate. Chest X-Ray 04/16/17 17:37 IMPRESSION: Chronic elevation the right diaphragm and adjacent atelectasis with volume loss of the right thorax. No evidence of acute cardiopulmonary disease. D/ / Wilfredo Chatman MD / Wilfredo Chatman MD Interpreting Provider: Wilfredo Chatman MD Hip X-Ray 04/16/17 17:38 IMPRESSION: No acute osseous injury of the right hip. D/ / 04/16/2017 18:29:14 Emanuel Alvarenga MD / [facility] [place] Interpreting Provider: Emanuel Alvarenga MD Knee X-Ray 04/16/17 17:38 IMPRESSION: Negative radiographs of the left knee D/ / Wilfredo Chatman MD / Wilfredo Chatman MD Interpreting Provider: Wilfredo Chatman MD Vital Signs Temperature 97.8 F 04/16/17 17:09 Pulse Rate 103 04/16/17 17:09 Respiratory Rate 16 04/16/17 17:09 Blood Pressure 170/96 04/16/17 17:09 O2 Sat by Pulse Oximetry 98 04/16/17 17:09 Temperature 97.8 F 04/16/17 17:09 Pulse Rate 85 04/16/17 21:31 Respiratory Rate 18 04/16/17 21:31 Blood Pressure 132/70 04/16/17 21:31 O2 Sat by Pulse Oximetry 96 04/16/17 21:31 Oxygen Delivery Oxygen Delivery Nasal Cannula Fall - MDM Narrative Medical decision making narrative: Patient normally hypertensive. The rest of the vitals were within normal limits. Physical exam shows significant wheeze throughout all lung sahu. Patient is using accessory muscles. Currently on 2 L nasal cannula oxygen. Abdomen soft and nontender. He does have an epigastric rash: macular-papular rash on epigastric region, no ulceration, vesicles, or bullae. Patient has tenderness to the patellar region on the left knee along with right lateral hip/ greater trochanter pain and pain with flexion and extension. We will obtain basic blood work, EKG, troponin, chest x-ray to assess for shortness of breath, we will obtain x-ray of the right hip and left knee due to fall and pain. 19:34 CBC and BMP shows no major abnormalities. Troponin negative. BNP negative. Chest x-ray negative for any acute cardiopulmonary process. Imaging of the knee and right hip were negative for any fracture. However, patient was unable to get up out of bed and ambulate, bear any weight on the right lower extremity. He also is still short of breath and has wheeze despite DuoNeb treatment. We will admit for COPD exacerbation. However, will go ahead and CT the right hip for occult fracture and x-ray the right knee and tib-fib as well to assess for any referred pain down explained patient's inability to ambulate. - Medical Records Medical records reviewed: Yes I reviewed the patient's medical records. - Lab Data Lab results reviewed: Yes I reviewed the patient's lab results. Result diagrams: 04/16/17 17:58 04/16/17 17:58 Lab Results 04/16/17 04/16/17 04/16/17 Range/Units 17:58 17:58 17:58 WBC 5.6 (4.3-11.1) K/mcL RBC 3.98 L (4.19-5.50) M/mcL Hgb 12.1 L (12.9-16.9) g/dL Hct 36.9 L (37.5-50.1) % MCV 92.7 (83.0-100.0) fL MCH 30.4 (28.0-33.3) pg MCHC 32.8 (31.6-35.5) g/dL RDW 13.7 (11.5-14.5) % Plt Count 149 (140-400) K/mcL MPV 9.1 L (9.4-12.4) fL Immature Gran % 1.4 (0-4) % Seg Neutrophils % 58.2 % Lymphocytes % 30.4 % Monocytes % 8.2 % Eosinophils % 1.6 % Basophils % 0.2 % Neutrophils # 3.3 (1.6-8.9) K/mcL Lymphocytes # 1.7 (0.6-4.6) K/mcL Monocytes # 0.5 (0.0-1.3) K/mcL Eosinophils # 0.1 (0.0-0.6) K/mcL Basophils # 0.0 (0.0-0.2) K/mcL Sodium 138 (136-145) mEq/L Potassium 3.3 L (3.5-5.1) mEq/L Chloride 102 (98-107) mEq/L Carbon Dioxide 28 (23-29) mEq/L BUN 15 (6-20) mg/dL Creatinine 0.73 (0.70-1.30) mg/dL Est GFR ( Amer) > 60 (> 60) Est GFR (Non-Af Amer) > 60 (> 60) BUN/Creatinine Ratio 21 (6-26) Glucose 146 H (70-105) mg/dL Calculated Osmolality 289 (280-300) Lactic Acid 1.4 (0.5-2.2) mmol/L Calcium 8.6 (8.6-10.3) mg/dL Troponin I (< 0.04) ng/mL B-Natriuretic Peptide (Less than 100) pg/mL 04/16/17 04/16/17 Range/Units 17:58 17:58 WBC (4.3-11.1) K/mcL RBC (4.19-5.50) M/mcL Hgb (12.9-16.9) g/dL Hct (37.5-50.1) % MCV (83.0-100.0) fL MCH (28.0-33.3) pg MCHC (31.6-35.5) g/dL RDW (11.5-14.5) % Plt Count (140-400) K/mcL MPV (9.4-12.4) fL Immature Gran % (0-4) % Seg Neutrophils % % Lymphocytes % % Monocytes % % Eosinophils % % Basophils % % Neutrophils # (1.6-8.9) K/mcL Lymphocytes # (0.6-4.6) K/mcL Monocytes # (0.0-1.3) K/mcL Eosinophils # (0.0-0.6) K/mcL Basophils # (0.0-0.2) K/mcL Sodium (136-145) mEq/L Potassium (3.5-5.1) mEq/L Chloride (98-107) mEq/L Carbon Dioxide (23-29) mEq/L BUN (6-20) mg/dL Creatinine (0.70-1.30) mg/dL Est GFR ( Amer) (> 60) Est GFR (Non-Af Amer) (> 60) BUN/Creatinine Ratio (6-26) Glucose (70-105) mg/dL Calculated Osmolality (280-300) Lactic Acid (0.5-2.2) mmol/L Calcium (8.6-10.3) mg/dL Troponin I < 0.03 (< 0.04) ng/mL B-Natriuretic Peptide 50 (Less than 100) pg/mL - Radiology Data Radiology results reviewed: Yes I reviewed the patient's radiology results. Chest X-Ray 04/16/17 17:37 IMPRESSION: Chronic elevation the right diaphragm and adjacent atelectasis with volume loss of the right thorax. No evidence of acute cardiopulmonary disease. D/ / Wilfredo Chatman MD / Wilfredo Chatman MD Interpreting Provider: Wilfredo Chatman MD Hip X-Ray 04/16/17 17:38 IMPRESSION: No acute osseous injury of the right hip. D/ / 04/16/2017 18:29:14 Emanuel Alvarenga MD / [facility] Interpreting Provider: Emanuel Alvarenga MD Knee X-Ray 04/16/17 17:38 IMPRESSION: Negative radiographs of the left knee D/ / Wilfredo Chatman MD / Wilfredo Chatman MD Interpreting Provider: Wilfredo Chatman MD - EKG Data EKG attestation: Yes I reviewed and interpreted this EKG. EKG results narrative: 04/16/2017 at 17:52. Normal sinus rhythm. Rate 86. CT 150. QRS 82. QTc 45. No acute ST elevation or depression. S.B.A.RAnny - Светлана Situation: Demographics, MOA Background: Presenting Complaint, Relevant PMH, Meds, & Allergies Assessment: Vital Signs, Course and respsone to treatment, Exam Concerns, Patient/Family Expectation, Pertinant Lab Results, Outstanding Labs Recommendation: Barrier(s) to disposition, Recommendation based on pending studies, treatments, or consults [email or web address] Report Given to: Dr. Jonathan Sotomayor Repor Time: 21:13 Attestation Statement - Attestation Attestation: I examined this patient and my medical decision-making was reviewed with the Resident Physician. I agree with the documented findings, disposition and treatment plan as described except to the extent set forth below. Findings consistent with fall. Compartments are soft. X-ray shows no evidence of fracture. CT scan was obtained to rule out occult fracture and this was negative. Given the patient's inability to bear weight we will admit for further evaluation. Additionally has possible COPD exacerbation. Steroids and bronchodilators were administered. The patient was admitted stable condition.
[2017-04-16] MEDS ORDERED: Aspirin 325 MG TABLET PO ONE (17:39)
[2017-04-16] MEDS ORDERED: Azithromycin 500 MG in D5% in Water 250 ML IVPB ONE (17:40)
[2017-04-16] MEDS ORDERED: methylPREDNISolone 125 MG/2 ML VIAL IVP ONE (17:40)
[2017-04-16] MEDS ORDERED: Ipratropium/Albuterol Neb 3 ML IH ONE (17:40)
[2017-04-16 18:08] LABS: Basophils % 0.2 %; Eosinophils # 0.1 K/mcL (0.0-0.6); Eosinophils % 1.6 %; Hematocrit 36.9 % (37.5-50.1); Hemoglobin 12.1 g/dL (12.9-16.9); Immature Granulocytes % 1.4 % (0-4); Lymphocytes # 1.7 K/mcL (0.6-4.6); Lymphocytes % 30.4 %; Mean Corpuscular HGB Conc 32.8 g/dL (31.6-35.5); Mean Corpuscular Hemoglobin 30.4 pg (28.0-33.3); Mean Corpuscular Volume 92.7 fL (83.0-100.0); Mean Platelet Volume 9.1 fL (9.4-12.4); Monocytes # 0.5 K/mcL (0.0-1.3); Monocytes % 8.2 %; Neutrophils # 3.3 K/mcL (1.6-8.9); Platelet Count 149 K/mcL (140-400); Red Blood Count 3.98 M/mcL (4.19-5.50); Red Cell Distribution Width 13.7 % (11.5-14.5); Segmented Neutrophils % 58.2 %
[2017-04-16] MEDS ORDERED: Ketorolac 15 MG/ML VIAL IVP ONE (18:27)
[2017-04-16 18:34] LABS: BUN/Creatinine Ratio 21 (6-26); Blood Urea Nitrogen 15 mg/dL (6-20); Calcium 8.6 mg/dL (8.6-10.3); Carbon Dioxide 28 mEq/L (23-29); Chloride 102 mEq/L (98-107); Glucose 146 mg/dL (70-105); Osmolality,Calculated 289 (280-300); Potassium 3.3 mEq/L (3.5-5.1); Sodium 138 mEq/L (136-145); eGFR For African Americans > 60 (> 60); eGFR For Non-African Americans > 60 (> 60)
[2017-04-16] MEDS ORDERED: ALPRAZolam 1 MG TABLET PO PRN (21:39)
[2017-04-16] MEDS ORDERED: *HR* HYDROcodone/Acet 5/325 mg TABLET PO ONE (21:40)
[2017-04-16] MEDS ORDERED: Ketorolac 30 MG/ML VIAL IVP PRN (21:47)
[2017-04-16] MEDS ORDERED: Naloxone 0.4 MG/ML INJ IVP PRN (21:47)
--- NOTE | 2017-04-16 21:59 | Internal Med History&Physical ---
<Artur Valderrama - Last Filed: 04/16/17 21:56> Date of Encounter: 04/16/17 Time of Encounter: 21:56 Assessment and Plan (1) Acute exacerbation of chronic obstructive airways disease Current visit: Yes Status: Acute Arrived today with hypoxia and dyspnea secondary to an acute exacerbation of COPD. He is reporting an increase in wheezing and dyspnea over the last few days. Has a h/o end stage COPD. He is recently requiring home oxygen support since a recent discharge this month for PNA. Prior to that the patient was not requiring home oxygen. He denies needing to increase his O2 flow rate. Spo2 on arrival to ED was 89% but improved with nebulizer treatment. -Duonebs Q4hrs -Continuous tele and spo2 monitoring -Supplemental O2; maintain Spo2 greater than 92% (2) Hypoxia Current visit: Yes Status: Acute Hypoxia secondary to an acute exacerbation of COPD. Increased shortness of breath over the last few days requiring an increase in nebulizer use. see plan above (3) Dyspnea Current visit: Yes Status: Acute Qualifiers: Dyspnea type: shortness of breath Qualified Code(s): R06.02 - Shortness of breath (4) Dizziness Current visit: Yes Status: Acute Dizziness of unclear etiology resulting in multiple falls. Could be orthostasis d/t medications, or could be related to dehydration with lasix use. Recent echo 04/06 with a normal EF and no structural abnormalities -BL carotid dopplers -orthostatic VS -PT/OT consult to assess functional capacity; last admission it was noted he would benefit from inpatient rehab (5) Fall Current visit: Yes Status: Acute Reports he has fallen twice this past week while at home. He is reporting dizziness and an increase in weakness fatigue and dyspnea. He is on Coumadin but denies hitting his head or loss of consciousness. He reports only hurting his right hip and left knee. Upon my assessment there is no active bleeding. Hemoglobin and hematocrit are stable. He denies any hematuria, hematemesis, melena, or hematochezia -Stat PT/INR-patient is supratherapeutic with a PTT of 38.3 and INR of 7.45 -Hold Coumadin, check PT/INR daily, resume Coumadin with pharmacy dosing -Stat CT of the head without contrast Qualifiers: Encounter type: initial encounter Qualified Code(s): W19.XXXA - Unspecified fall, initial encounter (6) Unable to ambulate Current visit: Yes Status: Acute He reports he is having difficulty walking since the fall due to left knee and right hip pain. All imaging unremarkable. His right hip pain likely due to sciatica. -MRI lumbar spine without contrast in the morning -PT/OT consult (7) Pain of lumbar spine Current visit: Yes Status: Acute s/p mechanical fall. He reports that he has fallen twice this week while at home. Since the fall he is reporting right lumber spine, right leg and left knee pain. All imaging unremarkable. He is continuing to report shooting pain from his right back down his right leg. He is unable to perform a straight leg raise. This is concerning for sciatica. -MRI of the lumber spine in the morning -Oxycodone immediate release for moderate pain and Toradol for severe pain -Monitor renal function daily and discontinue Toradol if worsening renal function observed (8) Sciatica Current visit: Yes Status: Suspected see plan above Qualifiers: Laterality: right Qualified Code(s): M54.31 - Sciatica, right side (9) Right hip pain Current visit: Yes Status: Acute (10) Pain in left knee Current visit: Yes Status: Acute Qualifiers: Chronicity: acute Qualified Code(s): M25.562 - Pain in left knee (11) HTN (hypertension) Current visit: Yes Status: Chronic Stable. Qualifiers: Hypertension type: essential hypertension Qualified Code(s): I10 - Essential (primary) hypertension (12) Anxiety Current visit: Yes Status: Chronic Resume Xanax (13) Hyperglycemia Current visit: Yes Status: Acute Hyperglycemia. Most likely from oral steroids (14) DVT prophylaxis Current visit: Yes Status: Acute The patient is taking Coumadin, however PT/INR supratherapeutic. Continue to hold Coumadin dose for now, check PT/INR daily and resume Coumadin with pharmacy to dose Internal Medicine - H&P: HPI Chief complaint: falls, lumbar pain, Rt hip pain, Lt knee pain, dyspnea Admitted From: Home Plans for Post Hospital Care: Home History of present illness: Mr. Oliva is a 57 year old male with a PMH of COPD, DVT's, HTN and PE's who presents to [facility] today with increased shortness of breath, wheezing, and dizziness over the last few days. He additionally reports that he has fallen twice in that time and is reporting intense right lower back and right hip pain as well as left knee pain.. He denies any loss of consciousness or head trauma but he is on blood thinners. He reports that he fell on his right hip and left knee d/t dizziness and fatigue. He was recently admitted and treated for pneumonia and influenza and discharged on the 05 of April. Since the time of discharge he has require supplemental O2 but denies having to increase the flow rate to help with dyspnea. He does however report episodes of hypoxia with his Spo2 dropping in the mid 80's. He denies any increase in cough, fever , chills, chest pain, abdominal pain, dysuria, or unilateral extremity swelling or pain. As of my assessment he reports that his shortness of breath has somewhat improved with nebulizer treatment. He is being admitted for suspected COPD exacerbation and for further workup of back and knee pain s/p fall. Past Med Surg Social Fam HX - Past Medical History Medical history: COPD, DVT, hypertension, pulmonary embolus Psychiatric history: anxiety - Past Surgical History Surgical History: non-contributory - Social History Smoking Status: Former smoker Smokeless Tobacco Status: No Alcohol use: none Drug use: none - Family History Father Adopted: No Living Status: Hx Family Cardiac Disorders: Yes (Uncles, dad) Hx Family Respiratory Disorders: Yes Hx Family Cancer: Yes Hx Family GI Disorders: No Mother Adopted: No Hx Family Cancer: Yes (sibling,parents) - Additional Family History Additional family history: Noncontributory Internal Medicine - H&P: Meds Gabapentin [Neurontin] 300 mg PO TID 03/27/15 [History] Omeprazole [PriLOSEC] 40 mg PO DAILY@0630 #30 capsule 08/16/15 [Rx] DULoxetine [Cymbalta] 30 mg PO DAILY 02/27/17 [History] Albuterol Sulfate [Albuterol Inhaler] 2 puff IH Q4HR PRN #1 [id number] 03/06/17 [Rx] Budesonide/Formoterol 80/4.5 [Symbicort 80/4.5] 2 puff IH BIDR #1 inhaler 03/06 [Rx] Atorvastatin [Lipitor] 10 mg PO HS 03/23/17 [History] Diclofenac Sodium [Voltaren] 1 appl TP TID PRN 03/23/17 [History] Lisinopril [Zestril] 20 mg PO DAILY 03/23/17 [History] Warfarin [Coumadin] 10 mg PO 1800 03/23/17 [History] Ipratropium/Albuterol Neb [Duoneb] 3 ml IH Q6H PRN 30 Days inhsol 03/31/17 [Rx] Nebulizer Accessories [Sootheneb [id number] Adult Mask] 1 each Q6H PRN 30 Days each 03/31/17 [Rx] Nebulizer Accessories [Sootheneb [id number] Med Cup] 1 each Q6H PRN 30 Days each 03/31/17 [Rx] Nebulizer Accessories [Sootheneb Exu495 Mesh Cap] 1 each Q6H PRN 30 Days each 03/31/17 [Rx] Nebulizer [Aeroeclipse] 1 each Q6H PRN #1 each 03/31/17 [Rx] ALPRAZolam [Xanax 1 MG Tablet] 1 mg PO DAILY PRN #10 04/04/17 [Rx] Furosemide [Lasix] 40 mg PO BIDDIURETIC tablet 04/04/17 [Rx] Ipratropium Neb [Atrovent Neb] 0.5 mg IH [id number] PRN inhsol 04/04/17 [Rx] Levalbuterol Neb [Xopenex Neb] 1.25 mg IH [id number] PRN vial.neb 04/04/17 [Rx] Metoprolol [Lopressor] 12.5 mg PO BID tablet 04/04/17 [Rx] OxyCODONE/APAP 5/325 [Percocet 5/325 MG] 1 each PO Q4HR PRN #15 tablet 04/04/17 [Rx] Tizanidine HCl [Zanaflex] 4 mg PO TID PRN #10 capsule 04/04/17 [Rx] predniSONE [PredniSONE] 60 mg PO DAILY 9 Days tablet 04/04/17 [Rx] Furosemide [Lasix] 40 mg PO BID #60 tablet 04/05/17 [Rx] Metoprolol [Lopressor] 12.5 mg PO BID #30 tablet 04/05/17 [Rx] predniSONE [PredniSONE] 10 mg PO TAPER #39 tablet 04/05/17 [Rx] 3 Allergy/AdvReac Type Severity Reaction Status Date / Time No Known Allergies Allergy Verified 04/16/17 17:13 All Systems PM: A 10-system review of systems was performed and is negative for pertinent findings except as documented above in the HPI. - Constitutional Constitutional: fatigue, fever(s) (subjective) - EENT Eyes: no change in vision, no discharge, no pain, no photophobia Ears: no ear discharge, no ear pain, no tinnitus Nose, mouth and throat: no dysphagia, no nasal discharge, no neck pain, no sore throat - Cardiovascular Cardiovascular ROS IM: dyspnea (chronic), no chest pain, no diaphoresis, no lightheadedness, no palpitations, no syncope - Respiratory Respiratory: cough (chronic), dyspnea (chronic), no wheezing, no pain on inspiration, no chest congestion, no excessive phlegm production - Gastrointestinal Gastrointestinal: no abdominal pain, no diarrhea, no hematemesis, no hematochezia, no melena, no nausea, no vomiting - Musculoskeletal Musculoskeletal ROS IM: no numbness, no tingling - Integumentary Integumentary IM: no rash, no unusual bruising - Neurological Neurological ROS: no confusion, no convulsions, no focal weakness, no numbness, no tingling, no tremor(s) - Constitutional Vitals: Temp Pulse Resp BP Pulse Ox 97.8 F 85 18 132/70 96 04/16/17 17:09 04/16/17 21:31 04/16/17 21:31 04/16/17 21:31 04/16/17 21:31 General appearance: Present: mild distress, A&O X 3, morbidly obese, answers questions appropriately - Head Head exam: Present: atraumatic, normocephalic - Eye Eye exam: Present: PERRL, conjuntiva pink, sclera anicteric Pupils: Present: PERRL - Neck Neck exam general surgery: Present: supple, trachea midline. Absent: lymphadenopathy - Respiratory Respiratory exam: Present: decreased breath sounds, CTAB, tachypnea. Absent: accessory muscle use, rales, rhonchi, wheezes - Cardiovascular Cardiovascular exam: Present: RRR, +S1, +S2. Absent: diastolic murmur, gallop, rubs, systolic murmur - GI/Abdominal GI/Abdominal exam: Present: normal bowel sounds, soft, no peritoneal signs. Absent: distended, tenderness - Extremities Exam Extremities exam: Present: normal capillary refill, warm, radial pulses palpable and symmetrical. Absent: calf tenderness, cyanotic, pedal edema, tenderness - Neurological Exam Neurological exam: Present: oriented X3, no focal deficits. Absent: facial droop, speech deficit - Skin Skin exam: Present: dry, intact Internal Med - H&P Results - Labs CBC & Chem 7: 04/16/17 17:58 04/16/17 17:58 - EKG Data -: EKG Interpreted by Myself EKG shows normal: sinus rhythm - EKG Data EKG comments: 04/16/17 22:24 SR rate of 86 no ischemia noted - Impressions Impressions Chest X-Ray 04/16/17 17:37 IMPRESSION: Chronic elevation the right diaphragm and adjacent atelectasis with volume loss of the right thorax. No evidence of acute cardiopulmonary disease. D/ / Wilfredo Chatman MD / Wilfredo Chatman MD Interpreting Provider: Wilfredo Chatman MD Hip X-Ray 04/16/17 17:38 IMPRESSION: No acute osseous injury of the right hip. D/ / 04/16/2017 18:29:14 Emanuel Alvarenga MD / [facility] [email or web address] Interpreting Provider: Emanuel Alvarenga MD Knee X-Ray 04/16/17 17:38 IMPRESSION: Negative radiographs of the left knee D/ / Wilfredo Chatman MD / Wilfredo Chatman MD Interpreting Provider: Wilfredo Chatman MD Hip CT 04/16/17 19:32 IMPRESSION: No acute abnormality. No fracture. D/ / 04/16/2017 20:18:45 Alhaji Akhtar MD / [employer] Interpreting Provider: Alhaji Akhtar MD Knee X-Ray 04/16/17 19:32 IMPRESSION: No acute process of the right knee or right tib-fib D/ / 04/16/2017 20:47:33 Emanuel Alvarenga MD / [employer] Interpreting Provider: Emanuel Alvarenga MD Tibia/Fibula X-Ray 04/16/17 19:32 IMPRESSION: No acute process of the right knee or right tib-fib D/ / 04/16/2017 20:47:33 Emanuel Alvarenga MD / [employer] Interpreting Provider: Emanuel Alvarenga MD <Ruy Castillo - Last Filed: 04/17/17 00:08> Date of Encounter: 04/16/17 Time of Encounter: 22:00 Internal Medicine - H&P: HPI History of present illness: Mr. Oliva is a 57 year old male All Systems PM: A 10-system review of systems was performed and is negative for pertinent findings except as documented above in the HPI. - Constitutional Vitals: Temp Pulse Resp BP Pulse Ox 98.0 F 75 16 131/78 97 04/16/17 22:39 04/16/17 22:39 04/16/17 23:19 04/16/17 22:39 04/16/17 23:19 Internal Med - H&P Results - Labs CBC & Chem 7: 04/16/17 17:58 04/16/17 17:58 Labs: Cardiac Enzymes 04/16/17 Range/Units 22:11 Troponin I < 0.03 (< 0.04) ng/mL - Impressions ITS Impressions Head CT 04/16/17 21:45 IMPRESSION: No acute intracranial abnormality. D/ / Renée Shi MD / Renée Shi MD Interpreting Provider: Renée Shi MD - Attending Attestation I examined this patient and my medical decision-making was reviewed with the Nurse Practitioner, Artur Valderrama. I agree with the documented findings, disposition and treatment plan as described with any changes set forth below. 57-year-old male patient with history of COPD and chronic respiratory failure presented to the ER with complaints of shortness of breath, dizziness and right hip pain. He had been discharged from the hospital earlier this month after a bout of COPD exacerbation along with influenza. He had been discharged on steroid taper and bronchodilators and was provided prescriptions for nebulizers and home health. He reports that he continued to feel short of breath even after discharge and has been having episodes of dizziness. He has fallen 3 times since his discharge from the hospital. He says his last fall was on Monday. He complains of back pain radiating down into his right leg. He reports back injury when he fell. He did not hit his head. He has been on Coumadin for prior DVTs. On examination, patient has prolonged expiratory phase with diminished breath sounds bilaterally. Minimal wheezing. Chest x-ray does not show any acute infiltrate. CT scan of the right hip does not reveal any fracture. Patient INR is supratherapeutic at 7.5. Acute COPD exacerbation: Observation. Bronchodilators.Oral steroids. O2 supplementation. Lumbar radiculopathy/right hip pain: Will get MRI of the spine to look for any fracture or nerve impingement. His pain appears to be from sciatica. Dizziness: Check orthostatic blood pressure. Consult PTOT. Discussed placement with the patient but he does not seem too interested at this time. Chronic hypoxic respiratory failure: Continue O2 supplementation. Supratherapeutic INR: Hold Coumadin. Monitor INR. No signs of acute bleeding. As such, will not reverse INR at this time.
[2017-04-16 22:31] LABS: INR 7.5; Prothrombin Time 83.8 Seconds (9.4-12.1)
[2017-04-16] MEDS: Ipratropium/Albuterol Neb 3 ML IH SCH (23:19)
[2017-04-17] MEDS: *HR* OxyCODONE Immed Rel 5 MG TABLET PO PRN ×4 (00:04→20:23)
[2017-04-17] MEDS: Ipratropium/Albuterol Neb 3 ML IH SCH ×5 (03:48→19:42)
[2017-04-17 05:18] LABS: Hematocrit 34.5 % (37.5-50.1); Hemoglobin 11.4 g/dL (12.9-16.9); Mean Corpuscular Volume 93.8 fL (83.0-100.0); Mean Platelet Volume 9.3 fL (9.4-12.4); Platelet Count 125 K/mcL (140-400); Red Blood Count 3.68 M/mcL (4.19-5.50); Red Cell Distribution Width 13.8 % (11.5-14.5)
[2017-04-17 05:28] LABS: INR 6.8; Prothrombin Time 75.8 Seconds (9.4-12.1)
[2017-04-17] MEDS ORDERED: *HR* Heparin 5,000 UNIT/ML VIAL SQ SCH (06:00)
[2017-04-17 09:36] LABS: BUN/Creatinine Ratio 14 (6-26); Blood Urea Nitrogen 12 mg/dL (6-20); Calcium 8.7 mg/dL (8.6-10.3); Carbon Dioxide 22 mEq/L (23-29); Chloride 100 mEq/L (98-107); Glucose 238 mg/dL (70-105); Osmolality,Calculated 288 (280-300); Sodium 135 mEq/L (136-145); eGFR For African Americans > 60 (> 60); eGFR For Non-African Americans > 60 (> 60)
--- NOTE | 2017-04-17 11:34 | Internal Med Progress Note ---
Date of Encounter: 04/17/17 Time of Encounter: 11:34 - Subjective Interval history: HPI: 57 year old male with a PMH of COPD, DVT's, HTN and PE's who presents to [facility] today with increased shortness of breath, wheezing, and dizziness over the last few days. He additionally reports that he has fallen twice in that time and is reporting intense right lower back and right hip pain as well as left knee pain.. He denies any loss of consciousness or head trauma but he is on blood thinners. He reports that he fell on his right hip and left knee d/t dizziness and fatigue. He was recently admitted and treated for pneumonia and influenza and discharged on the 05 of April. Since the time of discharge he has require supplemental O2 but denies having to increase the flow rate to help with dyspnea. He does however report episodes of hypoxia with his Spo2 dropping in the mid 80's. He denies any increase in cough, fever, chills, chest pain, abdominal pain, dysuria, or unilateral extremity swelling or pain. As of my assessment he reports that his shortness of breath has somewhat improved with nebulizer treatment. He is being admitted for suspected COPD exacerbation and for further workup of back and knee pain s/p fall. Assessment and Plan Acute exacerbation of chronic obstructive airways disease Breathing more comfortably. Continue bronchodilators and steroids Fall with sever right LBP and sciatica. Xrays fail to show fx or dislocation. L5/S1 disc bulge noted on MRI Coorelates with symptoms. Decadron, Valium, Baclofen amd Toradol for pain and spasm. PT ordered. He may need ortho consult. Supratherapeutic INR: No bleeding. RPh holding Coumadin No bleed on CT-Head ( - Constitutional Vitals: Temp Pulse Resp BP Pulse Ox 98.0 F 96 20 130/85 96 04/17/17 10:48 04/17/17 10:48 04/17/17 11:13 04/17/17 10:48 04/17/17 11:13 General appearance: Present: mild distress, A&O X 3, morbidly obese, answers questions appropriately - Head Head exam: Present: atraumatic, normocephalic - Eye Eye exam: Present: PERRL, conjuntiva pink, sclera anicteric Pupils: Present: normal accommodation, PERRL. Absent: unequal - Neck Neck exam general surgery: Present: supple, trachea midline. Absent: lymphadenopathy, nuchal rigidity, thyromegaly - Respiratory Respiratory exam: Present: rales, wheezes. Absent: accessory muscle use, rhonchi - Cardiovascular Cardiovascular exam: Present: RRR, +S1, +S2. Absent: diastolic murmur, gallop, rubs, systolic murmur - GI/Abdominal GI/Abdominal exam: Present: normal bowel sounds, soft, no peritoneal signs. Absent: distended, tenderness - Extremities Exam Extremities exam: Present: warm, radial pulses palpable and symmetrical. Absent : calf tenderness, cyanotic, pedal edema - Expanded Back Exam Back exam: positive straight leg raise: Right - Neurological Exam Neurological exam: Present: CN II-XII intact, oriented X3, no focal deficits. Absent: strengths equal and symetr throughout, pronater drift, facial droop, speech deficit - Skin Skin exam: Present: dry, intact, normal color, warm. Absent: petechiae, rash Internal Medicine: Result - Labs CBC & Chem 7: 04/17/17 05:08 04/17/17 05:08 Labs: Short CBC 04/17/17 Range/Units 05:08 WBC 5.0 (4.3-11.1) K/mcL Hgb 11.4 L (12.9-16.9) g/dL Hct 34.5 L (37.5-50.1) % Plt Count 125 L (140-400) K/mcL BMP 04/17/17 05:08 Sodium 135 L Potassium 4.0 Chloride 100 Carbon Dioxide 22 L BUN 12 Creatinine 0.86 Glucose 238 H Calcium 8.7 Cardiac Enzymes 04/16/17 Range/Units 22:11 Troponin I < 0.03 (< 0.04) ng/mL - ABG Interpretation ABG results: PT/INR, D-dimer PT 75.8 Seconds (9.4-12.1) H* 04/17/17 05:08 - Impressions Impressions Head CT 04/16/17 21:45 IMPRESSION: No acute intracranial abnormality. D/ / Renée Shi MD / Renée Shi MD Interpreting Provider: Renée Shi MD Consult Discharge Plan - Plan Referrals: Celso Simpson MD [Primary Care Provider] -
[2017-04-17] MEDS ORDERED: NON-FORMULARY MEDICATION 1 EACH EACH (Oxygen [Oxygen] 2 L) NS SCH (16:00)
[2017-04-17] MEDS ORDERED: Baclofen 10 MG TABLET PO PRN (17:00)
[2017-04-17] MEDS ORDERED: diazePAM 5 MG TABLET PO PRN (17:02)
[2017-04-17] MEDS ORDERED: Warfarin perPT PO PRN (18:00)
[2017-04-17] MEDS: Budesonide/Formoterol 80/4.5 MDI IH SCH (19:43)
[2017-04-17] MEDS: Dexamethasone 4 MG/ML VIAL IVP SCH ×2 (20:25→23:50)
[2017-04-17] MEDS: Gabapentin 300 MG CAPSULE PO SCH (20:25)
[2017-04-17] MEDS: Furosemide 40 MG TABLET PO SCH (20:25)
[2017-04-17] MEDS ORDERED: ALPRAZolam 1 MG TABLET PO SCH (21:00)
[2017-04-17] MEDS: *HR* HYDROcodone/Acet 5/325 mg TABLET PO PRN (21:51)
[2017-04-18] MEDS: Ipratropium/Albuterol Neb 3 ML IH SCH ×4 (00:14→11:42)
[2017-04-18] MEDS: *HR* OxyCODONE Immed Rel 5 MG TABLET PO PRN ×2 (04:29→11:47)
[2017-04-18 05:27] LABS: Basophils % 0.1 %; Hematocrit 34.2 % (37.5-50.1); Hemoglobin 11.4 g/dL (12.9-16.9); Immature Granulocytes % 0.9 % (0-4); Lymphocytes # 0.8 K/mcL (0.6-4.6); Lymphocytes % 9.9 %; Mean Corpuscular HGB Conc 33.3 g/dL (31.6-35.5); Mean Corpuscular Hemoglobin 31.5 pg (28.0-33.3); Mean Corpuscular Volume 94.5 fL (83.0-100.0); Mean Platelet Volume 9.3 fL (9.4-12.4); Monocytes # 0.5 K/mcL (0.0-1.3); Monocytes % 6.7 %; Neutrophils # 6.4 K/mcL (1.6-8.9); Platelet Count 158 K/mcL (140-400); Red Blood Count 3.62 M/mcL (4.19-5.50); Red Cell Distribution Width 14.3 % (11.5-14.5); Segmented Neutrophils % 82.4 %
[2017-04-18 05:34] LABS: BUN/Creatinine Ratio 18 (6-26); Blood Urea Nitrogen 16 mg/dL (6-20); Calcium 9.2 mg/dL (8.6-10.3); Carbon Dioxide 29 mEq/L (23-29); Chloride 102 mEq/L (98-107); Glucose 150 mg/dL (70-105); Osmolality,Calculated 290 (280-300); Potassium 4.2 mEq/L (3.5-5.1); Sodium 138 mEq/L (136-145); eGFR For African Americans > 60 (> 60); eGFR For Non-African Americans > 60 (> 60)
[2017-04-18 05:53] LABS: INR 5.1; Prothrombin Time 57.4 Seconds (9.4-12.1)
[2017-04-18] MEDS: Dexamethasone 4 MG/ML VIAL IVP SCH ×2 (06:27→11:47)
[2017-04-18] MEDS: Budesonide/Formoterol 80/4.5 MDI IH SCH (07:57)
--- NOTE | 2017-04-18 08:54 | Internal Med Progress Note ---
Date of Encounter: 04/18/17 Time of Encounter: 08:40 - Assessment and plan (1) Acute exacerbation of chronic obstructive airways disease Current Visit: Yes Status: Acute Assessment and plan: Continue duneb treatments and decadron. Supplemental O2 as needed (2) Hypoxia Current Visit: Yes Status: Resolved Assessment and plan: Secondary to COPD exacerbation. Currently Sating 98% on 2L O2 by nasal cannula (3) Dyspnea Current Visit: Yes Status: Resolved Assessment and plan: Secondary to exacerbation of COPD. Plan as above Qualifiers: Dyspnea type: shortness of breath Qualified Code(s): R06.02 - Shortness of breath (4) Dizziness Current Visit: Yes Status: Acute Assessment and plan: Dizziness of unknown etiology resulting in multiple falls. - Recent echo on 04/06 showed normal EF with no structural anomolies. - BL carotid doppler showed bilateral carotid system essentially normal. - Possibly due to hypoxia - PT/OT consulted - On last admission, it was noted that patient would benefit from inpatient rehab (5) Fall Current Visit: Yes Status: Acute Assessment and plan: Patent reports that he has fallen twice this past week while at home. He reports dizziness and an increase in weakness fatigue and dyspnea. Patient on Coumadin but denies hitting his head or loss of consciousness. CT ruled out any hemorrhage. He reports only hurting his right hip and left knee. Supratherapeutic INR of 7.5 on admission, now down to 5.1. - Continue coumadin pharmacy dosing. Qualifiers: Encounter type: initial encounter Qualified Code(s): W19.XXXA - Unspecified fall, initial encounter (6) Unable to ambulate Current Visit: Yes Status: Acute Assessment and plan: Patient is having trouble with ambulation secondary to pain in his right hip/ lumbar area. - X-ray and CT of [facility] hip showed no acute osseous abnormality - MRI of lumbar spine showed small broad-based posterior disc protrusion and neural foraminal narrowing at L5-S1 - PT/OT consulted (7) Pain of lumbar spine Current Visit: Yes Status: Acute Assessment and plan: S/p mechanical fall. Patient has spoken to ortho about potential surgery in the future. - MRI of lumbar spine showed small broad-based posterior disc protrusion and neural foraminal narrowing at L5-S1 - Oxycodone and Toradol for pain as needed. - Monitor renal function and d/c toradol if renal function worsens. - Subjective Interval history: Patient was seen and examined at bedside. He states that his hip is in terrible pain and that it is the worst pain that he has ever felt. He states that he had an MRI done yesterday showing disc protrusion and that he has had a conversation with ortho about a potential surgery in the future to alleviate symptoms. He states that his respiratory symptoms are improved since yesterday and that he is feeling okay in regards to his COPD, and that his big concern is his hip. Patient also states that he has a small amount of pain in his left knee but that that pain is trivial. He is requesting his ordered pain medication. - Constitutional Vitals: Temp Pulse Resp BP Pulse Ox 98.2 F 71 20 136/83 94 04/18/17 06:44 04/18/17 06:44 04/18/17 06:44 04/18/17 06:44 04/18/17 06:44 General appearance: Present: mild distress, A&O X 3, morbidly obese, answers questions appropriately - Head Head exam: Present: normal inspection - Eye Eye exam: Present: normal appearance - Neck Neck exam general surgery: Present: normal inspection - Respiratory Respiratory exam: Present: rhonchi, wheezes - Cardiovascular Cardiovascular exam: Present: RRR - GI/Abdominal GI/Abdominal exam: Present: soft. Absent: tenderness - Skin Skin exam: Present: dry, normal color, warm Internal Medicine: Result - Labs CBC & Chem 7: 04/18/17 05:00 04/18/17 05:00 Labs: Short CBC 04/18/17 Range/Units 05:00 WBC 7.8 D (4.3-11.1) K/mcL Hgb 11.4 L (12.9-16.9) g/dL Hct 34.2 L (37.5-50.1) % Plt Count 158 (140-400) K/mcL Neutrophils # 6.4 (1.6-8.9) K/mcL BMP 04/17/17 04/18/17 05:08 05:00 Sodium 135 L 138 Potassium 4.0 4.2 Chloride 100 102 Carbon Dioxide 22 L 29 BUN 12 16 Creatinine 0.86 0.88 Glucose 238 H 150 H Calcium 8.7 9.2 - ABG Interpretation ABG results: PT/INR, D-dimer PT 57.4 Seconds (9.4-12.1) H* 04/18/17 05:00 - Impressions Impressions Lumbar Spine MRI 04/17/17 07:00 IMPRESSION: Small broad-based posterior disc protrusion and neural foraminal narrowing at L5-S1 as above D/ / Dani Gan MD / Dani Gan MD Interpreting Provider: Dani Gan MD Consult Discharge Plan - Plan Referrals: Celso Simpson MD [Primary Care Provider] -
[2017-04-18] MEDS ORDERED: Lisinopril 20 MG TABLET PO SCH (09:00)
[2017-04-18] MEDS: Furosemide 40 MG TABLET PO SCH (09:44)
[2017-04-18] MEDS: *HR* HYDROcodone/Acet 5/325 mg TABLET PO PRN (09:44)
[2017-04-18] MEDS: Gabapentin 300 MG CAPSULE PO SCH (09:44)
[2017-04-18 10:33] VITALS: BP 132/78
--- NOTE | 2017-04-18 11:20 | Discharge Summary ---
<Heidy Baltazar - Last Filed: 04/18/17 11:16> Date of Encounter: 04/18/17 Time of Encounter: 11:16 - Discharge Diagnosis (1) Acute exacerbation of chronic obstructive airways disease Priority: Primary Status: Acute (2) Hypoxia Priority: Secondary Status: Resolved (3) Dyspnea Priority: Secondary Status: Resolved Qualifiers: Dyspnea type: shortness of breath Qualified Code(s): R06.02 - Shortness of breath (4) Dizziness Priority: Secondary Status: Acute (5) Fall Priority: Secondary Status: Acute Qualifiers: Encounter type: initial encounter Qualified Code(s): W19.XXXA - Unspecified fall, initial encounter (6) Unable to ambulate Priority: Secondary Status: Acute (7) Pain of lumbar spine Priority: Secondary Status: Acute - Discharge Medications Prescriptions: OxyCODONE Immed Rel [Roxicodone 5 MG] 5 mg PO Q6HR PRN 4 Days #16 tablet PRN Reason: Moderate Pain (4-6) predniSONE [PredniSONE] See Taper PO DAILY #84 tablet Home Medications: Gabapentin [Neurontin] 300 mg PO TID 03/27/15 [History] Omeprazole [PriLOSEC] 40 mg PO DAILY@0630 #30 capsule 08/16/15 [Rx] DULoxetine [Cymbalta] 30 mg PO DAILY 02/27/17 [History] Albuterol Sulfate [Albuterol Inhaler] 2 puff IH Q4HR PRN #1 hfa.aer.ad 03/06/17 [Rx] Atorvastatin [Lipitor] 10 mg PO HS 03/23/17 [History] Lisinopril [Zestril] 20 mg PO DAILY 03/23/17 [History] Warfarin [Coumadin] 10 mg PO 1800 03/23/17 [History] Ipratropium/Albuterol Neb [Duoneb] 3 ml IH Q6H PRN 30 Days inhsol 03/31/17 [Rx] Levalbuterol Neb [Xopenex Neb] 1.25 mg IH [id number] PRN vial.neb 04/04/17 [Rx] Metoprolol [Lopressor] 12.5 mg PO BID tablet 04/04/17 [Rx] Tizanidine HCl [Zanaflex] 4 mg PO TID PRN #10 capsule 04/04/17 [Rx] Furosemide [Lasix] 40 mg PO BID #60 tablet 04/05/17 [Rx] ALPRAZolam [Xanax 1 MG Tablet] 1 mg PO BID 04/17/17 [History] Fluticasone/Salmeterol [Advair 250-50 Diskus] 1 puff IH BID 04/17/17 [History] Oxygen 2 l NS CONT 04/17/17 [History] OxyCODONE Immed Rel [Roxicodone 5 MG] 5 mg PO Q6HR PRN 4 Days #16 tablet [Rx] predniSONE [PredniSONE] See Taper PO DAILY #84 tablet 04/18/17 [Rx] Allergies/Adverse Reactions: 3 Allergy/AdvReac Type Severity Reaction Status Date / Time No Known Allergies Allergy Verified 04/16/17 17:13 Procedures/tests Complete & Pending: Procedures Performed prior 72 hours Category Date Time Status CT head/brain wo con [CT] Stat Cat Scan 04/16/17 21:45 Completed MR lumbar spine wo con [MR] Routine MRI 04/17/17 07:00 Completed EV carotid duplex imaging BI Routine Y 04/17/17 22:45 Completed Date of admission: 04/16/17 21:31 Primary care physician: Celso Simpson MD Consults: 04/16/17 22:57 Consult to Occupational Therapy [CONS] Routine Comment: Evaluate, develop and implement POC Reason for Consult: assess funtional capacity Consult to Physical Therapy [CONS] Routine Comment: Evaluate, develop and implement POC Reason for Consult: assess funtional capacity Discharging clinician: Linden Singleton Anticipated date of discharge: 04/18/17 - Patient Status Disposition: Home, Self-Care Condition: Fair Functional capacity at discharge: independent ambulation Overall status at discharge: patient is progressing back to baseline - Ambulatory Orders Ambulatory Orders: Prothrombin Time INR [COAG] Time Frame: 04/20/17, Facility: [facility], Location: Lab - Discharge Instructions Follow Up With: Celso Simpson MD [Primary Care Provider] - 04/24/17 2:00 pm Aisha Quinones MD [Partnered Physician] - 04/20/17 10:40 am Additional Instructions: Finished prednisone taper. Follow up with PCP in a week or 2 referral to orthopedic surgery take pain medication as prescribed do not take Coumadin for 2 days, recheck INR 2 days he will f/u with pulmologist out patient - Diet and Activity Activity: resume usual activities as tolerated Diet: regular diet Hospital course: Mr. Oliva is a 57 year old male with a PMH of COPD, DVT's, HTN and PE's who presents to [facility] today with increased shortness of breath, wheezing, and dizziness over the last few days. He additionally reports that he has fallen twice in that time and is reporting intense right lower back and right hip pain as well as left knee pain.. He denies any loss of consciousness or head trauma but he is on blood thinners. He reports that he fell on his right hip and left knee d/t dizziness and fatigue. He was recently admitted and treated for pneumonia and influenza and discharged on the 05 of April. Since the time of discharge he has require supplemental O2 but denies having to increase the flow rate to help with dyspnea. He does however report episodes of hypoxia with his Spo2 dropping in the mid 80's. He denies any increase in cough, fever , chills, chest pain, abdominal pain, dysuria, or unilateral extremity swelling or pain. He was admitted for suspected COPD exacerbation and for further workup of back and knee pain s/p fall. Upon discharge the patient reported improvement in shortness of breath however he does have wheezing. Hip x-ray and CT scan showed no acute fracture. MRI of lumbar spine showed some minimal narrowing of L5 S1. Patient was afebrile with WBC within normal limits. The patient had a super therapeutic INR most likely due to antibiotics from previous admission. He was instructed to hold Coumadin for 2 days and to recheck it. The patient requested to follow up with orthopedics, he will get a referral. He will have a slow taper for prednisone in order to recheck INR in 2 days. He is to follow up with his PCP in 1 to 2 days. He was instructed to return to hospital should he develop fever, chills, worsen shortness of breath, worsening back pain. He is alert and oriented times 3 and stated a clear understanding of the treatment plan. Oaars report was checked. - Time Spent with Patient Total time spent providing and/or coordinating discharge services: Greater than 30 minutes - Constitutional Vitals: Temp Pulse Resp BP Pulse Ox 98.5 F 93 20 132/78 97 04/18/17 10:27 04/18/17 10:27 04/18/17 10:27 04/18/17 10:27 04/18/17 10:27 General appearance: Present: mild distress, A&O X 3, morbidly obese, answers questions appropriately Exam: Gen.: Vitals noted. No acute distress. AAOx3 HEENT: oropharynx clear, Normocephalic, atraumatic Neck: Supple. No adenopathy. Cardiac: RRR, no murmur, +S1/S2 Pulmonary: + bilaterally wheezes, rales or rhonchi, equal chest expansion Abdomen: soft, nontender, Bowel sounds noted, no guarding Back: + right lower endless steamer tender throughout. MSK: no joint swelling noted Extremities: no BLE edema, nontender calf, no cyanosis or clubbing Neuro: A&Ox3, moves all extremities, no focal deficits Psych: Appropriate mood and behavior <Linden Singleton H - Last Filed: 04/18/17 13:46> Date of Encounter: 04/18/17 Procedures/tests Complete & Pending: Procedures Performed prior 72 hours Category Date Time Status CT head/brain wo con [CT] Stat Cat Scan 04/16/17 21:45 Completed MR lumbar spine wo con [MR] Routine MRI 04/17/17 07:00 Completed EV carotid duplex imaging BI Routine Y 04/17/17 22:45 Completed Date of admission: 04/16/17 21:31 Primary care physician: Celso Simpson MD Consults: 04/16/17 22:57 Consult to Occupational Therapy [CONS] Routine Comment: Evaluate, develop and implement POC Reason for Consult: assess funtional capacity Consult to Physical Therapy [CONS] Routine Comment: Evaluate, develop and implement POC Reason for Consult: assess funtional capacity Hospital course: Mr. Oliva is a 57 year old male - Time Spent with Patient Total time spent providing and/or coordinating discharge services: - Constitutional Vitals: Temp Pulse Resp BP Pulse Ox 98.5 F 93 20 132/78 97 04/18/17 10:27 04/18/17 10:27 04/18/17 10:27 04/18/17 10:27 04/18/17 10:27 - Attending Attestation Acute hypoxic respiratory failure secondary to acute COPD exacerbation, recent infection with influenza Additional past medical history, factor V Leyden mutation, DVTs and 4 episodes of pulmonary emboli, has an IVC filter Discharged on a very slow and prolonged prednisone taper Time spent on this discharge: 40 minutes I examined this patient and my medical decision-making was reviewed with the Resident Physician. I agree with the documented findings, disposition and treatment plan as described except to the extent set forth below.
--- NOTE | 2017-04-18 11:55 | Physician Discharge Referral ---
<Heidy Baltazar - Last Filed: 04/18/17 11:53> Home Health/Hosp Referral Info Transfer to: Home Health Provider in Charge Post Discharge: PCP - Diagnosis (1) Acute exacerbation of chronic obstructive airways disease Status: Acute (2) Hypoxia Status: Resolved (3) Dyspnea Status: Resolved (4) Dizziness Status: Acute (5) Fall Status: Acute (6) Unable to ambulate Status: Acute (7) Pain of lumbar spine Status: Acute - Respiratory Orders Oxygen / L per min (2l) Smoking Cessation: Smoking cessation has been advised. For more information, call the [place] Tobacco Quit Line at 5-641-RTTO-NOW. - Diet/Nutrition Diet/Nutrition Orders: Regular - Activity Activity Orders: Ambulate - Services Needed Following services are medically necessary services: Physical Therapy, Occupational Therapy - Transfer Medications Prescriptions: OxyCODONE Immed Rel [Roxicodone 5 MG] 5 mg PO Q6HR PRN 4 Days #16 tablet PRN Reason: Moderate Pain (4-6) predniSONE [PredniSONE] See Taper PO DAILY #84 tablet Home Medications: Gabapentin [Neurontin] 300 mg PO TID 03/27/15 [History] Omeprazole [PriLOSEC] 40 mg PO DAILY@0630 #30 capsule 08/16/15 [Rx] DULoxetine [Cymbalta] 30 mg PO DAILY 02/27/17 [History] Albuterol Sulfate [Albuterol Inhaler] 2 puff IH Q4HR PRN #1 hfa.aer.ad 03/06/17 [Rx] Atorvastatin [Lipitor] 10 mg PO HS 03/23/17 [History] Lisinopril [Zestril] 20 mg PO DAILY 03/23/17 [History] Warfarin [Coumadin] 10 mg PO 1800 03/23/17 [History] Ipratropium/Albuterol Neb [Duoneb] 3 ml IH Q6H PRN 30 Days inhsol 03/31/17 [Rx] Levalbuterol Neb [Xopenex Neb] 1.25 mg IH [id number] PRN vial.neb 04/04/17 [Rx] Metoprolol [Lopressor] 12.5 mg PO BID tablet 04/04/17 [Rx] Tizanidine HCl [Zanaflex] 4 mg PO TID PRN #10 capsule 04/04/17 [Rx] Furosemide [Lasix] 40 mg PO BID #60 tablet 04/05/17 [Rx] ALPRAZolam [Xanax 1 MG Tablet] 1 mg PO BID 04/17/17 [History] Fluticasone/Salmeterol [Advair 250-50 Diskus] 1 puff IH BID 04/17/17 [History] Oxygen 2 l NS CONT 04/17/17 [History] OxyCODONE Immed Rel [Roxicodone 5 MG] 5 mg PO Q6HR PRN 4 Days #16 tablet [Rx] predniSONE [PredniSONE] See Taper PO DAILY #84 tablet 04/18/17 [Rx] Allergies/Adverse Reactions: 3 Allergy/AdvReac Type Severity Reaction Status Date / Time No Known Allergies Allergy Verified 04/16/17 17:13 Certification: Further, I certify that my clinical findings support that this patient is homebound (i.e. absences from home require considerable and taxing effort and are for medical reasons or jainism services or infrequently or short duration when for other reasons) because: fall risk and decreased range of motion Homebound Reason: Leaving home requires considerable and taxing effort due to condition Attestation: My signature below is to certify that this patient is under my care and that I, or nurse practitioner, or a physician's custody assistant working with me, has a face-to -face encounter with this patient. Dr. Baltazar <Linden Singleton - Last Filed: 04/18/17 16:58> - Respiratory Orders Smoking Cessation: Smoking cessation has been advised. For more information, call the [place] Tobacco Quit Line at 8-299-TZIX-NOW. Certification: Further, I certify that my clinical findings support that this patient is homebound (i.e. absences from home require considerable and taxing effort and are for medical reasons or jainism services or infrequently or short duration when for other reasons) because: Attestation: My signature below is to certify that this patient is under my care and that I, or nurse practitioner, or a physician's custody assistant working with me, has a face-to -face encounter with this patient. Discharged on a very slow and prolonged prednisone taper
--- NOTE | 2017-04-18 19:23 | Electrocardiograph Report ---
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
== END 2017-04-18 14:11 | disposition home or self-care (01) ==
LOC: EMEROO 17:05 → 3ANU 17:05
PROVIDERS: ADMIT Nurse Practitioner; ATTEND Internal Medicine

== ENCOUNTER 2017-08-30 14:03 | Inpatient (IN) ==
[2017-08-30] MEDS ORDERED: cefTRIAXone 1,000 MG in Water for inj. (sterile) 20 ML 10 ML IVP ONE (14:17)
[2017-08-30] MEDS ORDERED: Levofloxacin 750 MG/150 ML 750 MG/150 ML BAG IVPB ONE (14:17)
--- NOTE | 2017-08-30 14:19 | Emergency Department Note ---
Disposition Clinical Impression: Supratherapeutic INR Sepsis Qualifiers: Sepsis type: sepsis due to unspecified organism Qualified Code(s): A41.9 - Sepsis, unspecified organism Pneumonia Qualifiers: Pneumonia type: due to unspecified organism Laterality: right Lung location: lower lobe of lung Qualified Code(s): J18.1 - Lobar pneumonia, unspecified organism Disposition: Admitted As Inpatient Condition: Undetermined Referrals: NONE,PCP [Primary Care Provider] - Forms: ED Satisfaction Letter General Adult HPI - General Chief complaint: ED Shortness of Breath/Dyspnea Stated complaint: ERNST Time Seen by Provider: 08/30/17 14:11 - History of Present Illness Pain Scale: 0 - Related Data Home Medications Medication Instructions Recorded Confirmed Gabapentin [Neurontin] 300 mg PO TID 03/27/15 08/30/17 DULoxetine [Cymbalta] 30 mg PO DAILY 02/27/17 08/30/17 Atorvastatin [Lipitor] 10 mg PO HS 03/23/17 08/30/17 Lisinopril [Zestril] 20 mg PO DAILY 03/23/17 08/30/17 ALPRAZolam [Xanax 1 MG Tablet] 1 mg PO BID 04/17/17 08/30/17 Fluticasone/Salmeterol [Advair 1 puff IH BID 04/17/17 08/30/17 250-50 Diskus] Oxygen 2 l NS CONT 04/17/17 08/30/17 Warfarin [Coumadin] 8 mg PO DAILY 08/30/17 08/30/17 Previous Rx's Medication Instructions Recorded Omeprazole [PriLOSEC] 40 mg PO DAILY@0630 #30 capsule 08/16/15 Albuterol Sulfate [Albuterol 2 puff IH Q4HR PRN #1 hfa.aer.ad 03/06/17 Inhaler] Ipratropium/Albuterol Neb [Duoneb] 3 ml IH Q6H PRN 30 Days inhsol 03/31/17 Levalbuterol Neb [Xopenex Neb] 1.25 mg IH [id number] PRN vial.neb 04/04/17 Metoprolol [Lopressor] 12.5 mg PO BID tablet 04/04/17 Tizanidine HCl [Zanaflex] 4 mg PO TID PRN #10 capsule 04/04/17 Furosemide [Lasix] 40 mg PO BID #60 tablet 04/05/17 Allergies Allergy/AdvReac Type Severity Reaction Status Date / Time No Known Allergies Allergy Verified 08/13/17 19:48 Past Medical History - Past Medical History Medical history: Reports: non-contributory Surgical history: Reports: non-contributory Psychiatric history: Reports: anxiety - Social History Smoking Status: 2nd Hand Smoke Exposure Smokeless Tobacco Status: No Alcohol use: Reports: none Drug use: Reports: none Course Vital Signs Temperature 101.2 F H 08/30/17 14:07 Pulse Rate 110 08/30/17 14:07 Respiratory Rate 28 08/30/17 14:07 Blood Pressure 150/73 08/30/17 14:07 O2 Sat by Pulse Oximetry 96 08/30/17 14:07 Temperature 101.2 F H 08/30/17 14:13 Pulse Rate 88 08/30/17 15:41 Respiratory Rate 19 08/30/17 15:41 Blood Pressure 137/73 08/30/17 15:41 O2 Sat by Pulse Oximetry 96 08/30/17 15:41 Oxygen Delivery Oxygen Delivery Room Air Medical Decision Making - Lab Data Result diagrams: 08/30/17 14:29 08/30/17 14:29 Lab Results 08/30/17 08/30/17 08/30/17 Range/Units 14:29 14:29 14:29 WBC 15.7 H (4.3-11.1) K/mcL RBC 5.15 (4.19-5.50) M/mcL Hgb 14.9 (12.9-16.9) g/dL Hct 46.9 (37.5-50.1) % MCV 91.1 (83.0-100.0) fL MCH 28.9 (28.0-33.3) pg MCHC 31.8 (31.6-35.5) g/dL RDW 13.3 (11.5-14.5) % Plt Count 254 (140-400) K/mcL MPV 8.9 L (9.4-12.4) fL Immature Gran % 0.4 (0-4) % Seg Neutrophils % 68.5 % Lymphocytes % 21.0 % Monocytes % 8.8 % Eosinophils % 1.0 % Basophils % 0.3 % Neutrophils # 10.7 H (1.6-8.9) K/mcL Lymphocytes # 3.3 (0.6-4.6) K/mcL Monocytes # 1.4 H (0.0-1.3) K/mcL Eosinophils # 0.2 (0.0-0.6) K/mcL Basophils # 0.0 (0.0-0.2) K/mcL PT 51.3 H* (9.4-12.1) Seconds INR 4.6 H* Sodium 140 (136-145) mEq/L Potassium 4.6 (3.5-5.1) mEq/L Chloride 105 (98-107) mEq/L Carbon Dioxide 29 (23-29) mEq/L BUN 19 (6-20) mg/dL Creatinine 1.03 (0.70-1.30) mg/dL Est GFR ( Amer) > 60 (> 60) Est GFR (Non-Af Amer) > 60 (> 60) BUN/Creatinine Ratio 18 (6-26) Glucose 106 H (70-105) mg/dL Calculated Osmolality 293 (280-300) Lactic Acid (0.5-2.2) mmol/L Calcium 9.3 (8.6-10.3) mg/dL Magnesium 1.9 (1.6-2.6) mg/dL Total Bilirubin 0.3 (0.3-1.0) mg/dL Direct Bilirubin 0.0 (0.0-0.2) mg/dL Indirect Bilirubin 0.3 (0.0-1.2) mg/dL AST 14 (13-39) Units/L ALT 16 (7-52) Units/L Alkaline Phosphatase 65 (34-104) Units/L Troponin I < 0.03 (< 0.04) ng/mL Serum Total Protein 7.0 (6.4-8.9) g/dL Albumin 4.0 (3.5-5.7) g/dL Globulin 3.0 (2.4-3.5) g/dL Albumin/Globulin Ratio 1.3 (1.1-2.2) Urine Color (Yellow) Urine Clarity (Clear) Urine pH (5.0-8.0) pH Units Ur Specific Hospers (1.010-1.025) Urine Protein (Neg-Trace) mg/dL Urine Glucose (UA) (Normal) mg/dL Urine Ketones (Negative) mg/dL Urine Blood (Negative) Urine Nitrite (Negative) Urine Bilirubin (Negative) Urine Urobilinogen (Normal) mg/dL Ur Leukocyte Esterase (Negative) Ur Culture Indicated? (NO) 08/30/17 08/30/17 Range/Units 14:29 14:45 WBC (4.3-11.1) K/mcL RBC (4.19-5.50) M/mcL Hgb (12.9-16.9) g/dL Hct (37.5-50.1) % MCV (83.0-100.0) fL MCH (28.0-33.3) pg MCHC (31.6-35.5) g/dL RDW (11.5-14.5) % Plt Count (140-400) K/mcL MPV (9.4-12.4) fL Immature Gran % (0-4) % Seg Neutrophils % % Lymphocytes % % Monocytes % % Eosinophils % % Basophils % % Neutrophils # (1.6-8.9) K/mcL Lymphocytes # (0.6-4.6) K/mcL Monocytes # (0.0-1.3) K/mcL Eosinophils # (0.0-0.6) K/mcL Basophils # (0.0-0.2) K/mcL PT (9.4-12.1) Seconds INR Sodium (136-145) mEq/L Potassium (3.5-5.1) mEq/L Chloride (98-107) mEq/L Carbon Dioxide (23-29) mEq/L BUN (6-20) mg/dL Creatinine (0.70-1.30) mg/dL Est GFR ( Amer) (> 60) Est GFR (Non-Af Amer) (> 60) BUN/Creatinine Ratio (6-26) Glucose (70-105) mg/dL Calculated Osmolality (280-300) Lactic Acid 2.4 H (0.5-2.2) mmol/L Calcium (8.6-10.3) mg/dL Magnesium (1.6-2.6) mg/dL Total Bilirubin (0.3-1.0) mg/dL Direct Bilirubin (0.0-0.2) mg/dL Indirect Bilirubin (0.0-1.2) mg/dL AST (13-39) Units/L ALT (7-52) Units/L Alkaline Phosphatase (34-104) Units/L Troponin I (< 0.04) ng/mL Serum Total Protein (6.4-8.9) g/dL Albumin (3.5-5.7) g/dL Globulin (2.4-3.5) g/dL Albumin/Globulin Ratio (1.1-2.2) Urine Color Yellow (Yellow) Urine Clarity Clear (Clear) Urine pH 5.5 (5.0-8.0) pH Units Ur Specific [place]osp[place] 1.022 (1.010-1.025) Urine Protein Negative (Neg-Trace) mg/dL Urine Glucose (UA) Normal (Normal) mg/dL Urine Ketones Negative (Negative) mg/dL Urine Blood Negative (Negative) Urine Nitrite Negative (Negative) Urine Bilirubin Negative (Negative) Urine Urobilinogen Normal (Normal) mg/dL Ur Leukocyte Esterase Negative (Negative) Ur Culture Indicated? NO (NO) Critical Care Time Critical Care Time: Yes Total Critical Care Time: 40 Attestation: 40 Critical care performed: Time is exclusive of separately billable procedures. Time includes: direct patient care, patient reassessment, coordination of patient care, interpretation of data (laboratory data, radiology data, and respiratory data), review of patient's medical records, medical consultation and documentation of patient care. Procedures included in critical care time: Procedures excluded from critical care time: Attestation Statement - Attestation Attestation: I examined this patient and my medical decision-making was reviewed with the Resident Physician. I agree with the documented findings, disposition and treatment plan as described except to the extent set forth below. Patient to the ED complaining of shortness of breath cough fever for 4 days. History of pneumonia and this feels the same. On examination noted to be febrile and tachycardic. Lungs coarse. Mildly tachypneic. Plan. Patient meets sirs criteria. Septic workup. Likely admission. Patient with right infiltrate. Need sepsis criteria. IV antibiotic and admit.
--- NOTE | 2017-08-30 14:21 | Emergency Department Note ---
Disposition Clinical Impression: Supratherapeutic INR Sepsis Qualifiers: Sepsis type: sepsis due to unspecified organism Qualified Code(s): A41.9 - Sepsis, unspecified organism Pneumonia Qualifiers: Pneumonia type: due to unspecified organism Laterality: right Lung location: lower lobe of lung Qualified Code(s): J18.1 - Lobar pneumonia, unspecified organism Disposition: Admitted As Inpatient Condition: Undetermined Referrals: NONE,PCP [Primary Care Provider] - Forms: ED Satisfaction Letter Time of Disposition: 15:33 SOB HPI - General Chief Complaint: ED Shortness of Breath/Dyspnea Stated Complaint: ERNST Time Seen by Provider: 08/30/17 14:11 Source: patient Mode of arrival: ambulatory Limitations: no limitations Nursing Notes Reviewed: Yes Vital Signs Reviewed: Yes - History of Present Illness 57-year-old male with history of COPD, hypertension, arrives to the emergency department complaining of dyspnea and fever and chills. The patient states this feels similar to previous episodes of pneumonia in the past. States symptoms started roughly 3 days ago. They progressively worsened. The patient was noted to have subjective fevers at home but is febrile here in the emergency department the patient denies any chest pain, abdominal pain, nausea, vomiting, diarrhea. Patient denies any dysuria as well. Hypertension is shivering in the room and appears very uncomfortable. No respiratory distress is noted. Patient denies any other complaints at this time. - Related Data Home Medications Medication Instructions Recorded Confirmed Gabapentin [Neurontin] 300 mg PO TID 03/27/15 04/17/17 DULoxetine [Cymbalta] 30 mg PO DAILY 02/27/17 04/17/17 Atorvastatin [Lipitor] 10 mg PO HS 03/23/17 04/17/17 Lisinopril [Zestril] 20 mg PO DAILY 03/23/17 04/17/17 Warfarin [Coumadin] 10 mg PO 1800 03/23/17 04/17/17 ALPRAZolam [Xanax 1 MG Tablet] 1 mg PO BID 04/17/17 04/17/17 Fluticasone/Salmeterol [Advair 1 puff IH BID 04/17/17 04/17/17 250-50 Diskus] Oxygen 2 l NS CONT 04/17/17 04/17/17 Previous Rx's Medication Instructions Recorded Omeprazole [PriLOSEC] 40 mg PO DAILY@0630 #30 capsule 08/16/15 Albuterol Sulfate [Albuterol 2 puff IH Q4HR PRN #1 hfa.aer.ad 03/06/17 Inhaler] Ipratropium/Albuterol Neb [Duoneb] 3 ml IH Q6H PRN 30 Days inhsol 03/31/17 Levalbuterol Neb [Xopenex Neb] 1.25 mg IH [id number] PRN vial.neb 04/04/17 Metoprolol [Lopressor] 12.5 mg PO BID tablet 04/04/17 Tizanidine HCl [Zanaflex] 4 mg PO TID PRN #10 capsule 04/04/17 Furosemide [Lasix] 40 mg PO BID #60 tablet 04/05/17 OxyCODONE Immed Rel [Roxicodone 5 5 mg PO Q6HR PRN 4 Days #16 tablet 04/18/17 MG] predniSONE [PredniSONE] See Taper PO DAILY #84 tablet 04/18/17 Allergies Allergy/AdvReac Type Severity Reaction Status Date / Time No Known Allergies Allergy Verified 08/13/17 19:48 All systems ED: reviewed and negative except as stated. Constitutional: Reports: fever, chills. Denies: weakness ENT ED: Denies: congestion Cardiovascular: Reports: dyspnea on exertion. Denies: chest pain, orthopnea, edema, syncope Respiratory: Reports: cough, dyspnea, wheezes, sputum production. Denies: hemoptysis, stridor Gastrointestinal: Denies: abdominal pain, nausea, vomiting, diarrhea Genitourinary: Denies: urgency, dysuria Musculoskeletal: Denies: back pain Integumentary: Denies: rash Neurological: Denies: headache Past Medical History - Past Medical History Attestation: Yes The following information was validated with the patient. Source: patient Medical history: Reports: COPD, hypertension Surgical history: Reports: non-contributory Psychiatric history: Reports: anxiety - Social History Smoking Status: 2nd Hand Smoke Exposure Smokeless Tobacco Status: No Alcohol use: Reports: none Drug use: Reports: none Physical Exam - General Limitations: no limitations General appearance: alert, in no apparent distress, anxious - Head Head exam: atraumatic, normocephalic, normal inspection - Eye Eye exam: Present: normal appearance, PERRL, EOMI - ENT ENT exam: normal exam, normal oropharynx, mucous membranes moist - Neck Neck exam: Present: normal inspection, full ROM, trachea midline - Chest Chest inspection: Present: normal inspection, symmetric chest wall rise - Respiratory Respiratory exam: Present: other (Coarse breath sounds) - Cardiovascular Cardiovascular exam: Present: normal rhythm, tachycardia, normal heart sounds - Abdominal Exam Abdominal exam: Present: soft, Non-Tender. Absent: tenderness, distention, guarding, rebound, rigidity - Extremities Exam Extremities exam: Present: full ROM, other (Varicose veins in RLE). Absent: tenderness, pedal edema - Neurological Exam Neurological exam: Present: alert, oriented X3 - Skin Skin exam: Present: warm, dry, intact, normal color Course Vital Signs Temperature 101.2 F H 08/30/17 14:07 Pulse Rate 110 08/30/17 14:07 Respiratory Rate 28 08/30/17 14:07 Blood Pressure 150/73 08/30/17 14:07 O2 Sat by Pulse Oximetry 96 08/30/17 14:07 Temperature 101.2 F H 08/30/17 14:13 Pulse Rate 107 08/30/17 14:44 Respiratory Rate 22 08/30/17 14:44 Blood Pressure 131/75 08/30/17 14:44 O2 Sat by Pulse Oximetry 95 08/30/17 14:44 Oxygen Delivery Oxygen Delivery Nasal Cannula Shortness of Breath/Dyspnea - [facility] Narrative Medical decision making narrative: Patients chest XR demonstrates right elevated julius-diaphragm. CT of the chest was performed. The patient was noted to have RLL opacities. The patient was found to be septic. Lactic acid was elevated. He was administered IV fluids and started on rocephin and levofloxacin. The patient was noted to be tachycardic without hypoxia. We will admit the patient to the hospitalist at this time. The patient made aware. No further questions noted at this time. Accepted by Dr. Romano. - Lab Data Lab results reviewed: Yes I reviewed the patient's lab results. Result diagrams: 08/30/17 14:29 08/30/17 14:29 Lab Results 08/30/17 08/30/17 08/30/17 Range/Units 14:29 14:29 14:29 WBC 15.7 H (4.3-11.1) K/mcL RBC 5.15 (4.19-5.50) M/mcL Hgb 14.9 (12.9-16.9) g/dL Hct 46.9 (37.5-50.1) % MCV 91.1 (83.0-100.0) fL MCH 28.9 (28.0-33.3) pg MCHC 31.8 (31.6-35.5) g/dL RDW 13.3 (11.5-14.5) % Plt Count 254 (140-400) K/mcL MPV 8.9 L (9.4-12.4) fL Immature Gran % 0.4 (0-4) % Seg Neutrophils % 68.5 % Lymphocytes % 21.0 % Monocytes % 8.8 % Eosinophils % 1.0 % Basophils % 0.3 % Neutrophils # 10.7 H (1.6-8.9) K/mcL Lymphocytes # 3.3 (0.6-4.6) K/mcL Monocytes # 1.4 H (0.0-1.3) K/mcL Eosinophils # 0.2 (0.0-0.6) K/mcL Basophils # 0.0 (0.0-0.2) K/mcL PT 51.3 H* (9.4-12.1) Seconds INR 4.6 H* Sodium 140 (136-145) mEq/L Potassium 4.6 (3.5-5.1) mEq/L Chloride 105 (98-107) mEq/L Carbon Dioxide 29 (23-29) mEq/L BUN 19 (6-20) mg/dL Creatinine 1.03 (0.70-1.30) mg/dL Est GFR ( Amer) > 60 (> 60) Est GFR (Non-Af Amer) > 60 (> 60) BUN/Creatinine Ratio 18 (6-26) Glucose 106 H (70-105) mg/dL Calculated Osmolality 293 (280-300) Lactic Acid (0.5-2.2) mmol/L Calcium 9.3 (8.6-10.3) mg/dL Magnesium 1.9 (1.6-2.6) mg/dL Total Bilirubin 0.3 (0.3-1.0) mg/dL Direct Bilirubin 0.0 (0.0-0.2) mg/dL Indirect Bilirubin 0.3 (0.0-1.2) mg/dL AST 14 (13-39) Units/L ALT 16 (7-52) Units/L Alkaline Phosphatase 65 (34-104) Units/L Troponin I < 0.03 (< 0.04) ng/mL Serum Total Protein 7.0 (6.4-8.9) g/dL Albumin 4.0 (3.5-5.7) g/dL Globulin 3.0 (2.4-3.5) g/dL Albumin/Globulin Ratio 1.3 (1.1-2.2) Urine Color (Yellow) Urine Clarity (Clear) Urine pH (5.0-8.0) pH Units Ur Specific [place] (1.010-1.025) Urine Protein (Neg-Trace) mg/dL Urine Glucose (UA) (Normal) mg/dL Urine Ketones (Negative) mg/dL Urine Blood (Negative) Urine Nitrite (Negative) Urine Bilirubin (Negative) Urine Urobilinogen (Normal) mg/dL Ur Leukocyte Esterase (Negative) Ur Culture Indicated? (NO) 08/30/17 08/30/17 Range/Units 14:29 14:45 WBC (4.3-11.1) K/mcL RBC (4.19-5.50) M/mcL Hgb (12.9-16.9) g/dL Hct (37.5-50.1) % MCV (83.0-100.0) fL MCH (28.0-33.3) pg MCHC (31.6-35.5) g/dL RDW (11.5-14.5) % Plt Count (140-400) K/mcL MPV (9.4-12.4) fL Immature Gran % (0-4) % Seg Neutrophils % % Lymphocytes % % Monocytes % % Eosinophils % % Basophils % % Neutrophils # (1.6-8.9) K/mcL Lymphocytes # (0.6-4.6) K/mcL Monocytes # (0.0-1.3) K/mcL Eosinophils # (0.0-0.6) K/mcL Basophils # (0.0-0.2) K/mcL PT (9.4-12.1) Seconds INR Sodium (136-145) mEq/L Potassium (3.5-5.1) mEq/L Chloride (98-107) mEq/L Carbon Dioxide (23-29) mEq/L BUN (6-20) mg/dL Creatinine (0.70-1.30) mg/dL Est GFR ( Amer) (> 60) Est GFR (Non-Af Amer) (> 60) BUN/Creatinine Ratio (6-26) Glucose (70-105) mg/dL Calculated Osmolality (280-300) Lactic Acid 2.4 H (0.5-2.2) mmol/L Calcium (8.6-10.3) mg/dL Magnesium (1.6-2.6) mg/dL Total Bilirubin (0.3-1.0) mg/dL Direct Bilirubin (0.0-0.2) mg/dL Indirect Bilirubin (0.0-1.2) mg/dL AST (13-39) Units/L ALT (7-52) Units/L Alkaline Phosphatase (34-104) Units/L Troponin I (< 0.04) ng/mL Serum Total Protein (6.4-8.9) g/dL Albumin (3.5-5.7) g/dL Globulin (2.4-3.5) g/dL Albumin/Globulin Ratio (1.1-2.2) Urine Color Yellow (Yellow) Urine Clarity Clear (Clear) Urine pH 5.5 (5.0-8.0) pH Units Ur Specific [place] 1.022 (1.010-1.025) Urine Protein Negative (Neg-Trace) mg/dL Urine Glucose (UA) Normal (Normal) mg/dL Urine Ketones Negative (Negative) mg/dL Urine Blood Negative (Negative) Urine Nitrite Negative (Negative) Urine Bilirubin Negative (Negative) Urine Urobilinogen Normal (Normal) mg/dL Ur Leukocyte Esterase Negative (Negative) Ur Culture Indicated? NO (NO) - Radiology Data Radiology results reviewed: Yes I reviewed the patient's radiology results. Chest X-Ray 08/30/17 14:18 IMPRESSION: 1. Stable chest x-ray with no active pulmonary disease. D/ / Harsh Acosta MD / Harsh Acosta MD Interpreting Provider: Harsh Acosta MD - EKG Data EKG attestation: Yes I reviewed and interpreted this EKG. EKG results narrative: Heart rate 102 beats for minute. Sinus tachycardia. ST depressions noted in 2 , V5, V6. Overall EKG similar in appearance to previous EKG on April 08 denies anything cardiac in mild ST depression.
[2017-08-30 14:38] LABS: Basophils % 0.3 %; Eosinophils # 0.2 K/mcL (0.0-0.6); Hematocrit 46.9 % (37.5-50.1); Hemoglobin 14.9 g/dL (12.9-16.9); Immature Granulocytes % 0.4 % (0-4); Lymphocytes # 3.3 K/mcL (0.6-4.6); Mean Corpuscular HGB Conc 31.8 g/dL (31.6-35.5); Mean Corpuscular Hemoglobin 28.9 pg (28.0-33.3); Mean Corpuscular Volume 91.1 fL (83.0-100.0); Mean Platelet Volume 8.9 fL (9.4-12.4); Monocytes # 1.4 K/mcL (0.0-1.3); Monocytes % 8.8 %; Neutrophils # 10.7 K/mcL (1.6-8.9); Platelet Count 254 K/mcL (140-400); Red Blood Count 5.15 M/mcL (4.19-5.50); Red Cell Distribution Width 13.3 % (11.5-14.5); Segmented Neutrophils % 68.5 %
[2017-08-30] MEDS: 0.9 % Sodium Chloride 1,000 ML IVC SCH ×3 (14:57→18:01)
[2017-08-30 14:59] LABS: INR 4.6; Prothrombin Time 51.3 Seconds (9.4-12.1)
[2017-08-30 15:00] LABS: Alanine Aminotransferase 16 Units/L (7-52); Albumin/Globulin Ratio 1.3 (1.1-2.2); Alkaline Phosphatase 65 Units/L (34-104); Aspartate Amino Transferase 14 Units/L (13-39); BUN/Creatinine Ratio 18 (6-26); Bilirubin,Indirect 0.3 mg/dL (0.0-1.2); Bilirubin,Total 0.3 mg/dL (0.3-1.0); Blood Urea Nitrogen 19 mg/dL (6-20); Calcium 9.3 mg/dL (8.6-10.3); Carbon Dioxide 29 mEq/L (23-29); Chloride 105 mEq/L (98-107); Glucose 106 mg/dL (70-105); Magnesium 1.9 mg/dL (1.6-2.6); Osmolality,Calculated 293 (280-300); Potassium 4.6 mEq/L (3.5-5.1); Sodium 140 mEq/L (136-145); eGFR For African Americans > 60 (> 60); eGFR For Non-African Americans > 60 (> 60)
[2017-08-30 15:01] LABS: Troponin I < 0.03 ng/mL (< 0.04)
[2017-08-30 15:02] LABS: Bilirubin,Urine Negative (Negative); Blood,Urine Negative (Negative); Clarity,Urine Clear (Clear); Color,Urine Yellow (Yellow); Glucose,Urine (UA) Normal (Normal); Ketones,Urine Negative (Negative); Leukocyte Esterase,Urine Negative (Negative); Nitrite,Urine Negative (Negative); PH,Urine 5.5 pH Units (5.0-8.0); Protein,Urine Negative (Neg-Trace); Specific Gravity,Urine 1.022 (1.010-1.025); Urobilinogen,Urine Normal (Normal)
[2017-08-30] MEDS ORDERED: Naloxone 0.4 MG/ML INJ IVP PRN (16:03)
[2017-08-30] MEDS ORDERED: Levalbuterol Neb 1.25 MG/3 ML IH PRN (16:11)
[2017-08-30] MEDS ORDERED: NON-FORMULARY MEDICATION 1 EACH EACH (Oxygen [Oxygen] 2 L) NS SCH (16:15)
--- NOTE | 2017-08-30 16:28 | Internal Med History&Physical ---
<Tanesha Stern Tania - Last Filed: 08/30/17 17:30> Date of Encounter: 08/30/17 Time of Encounter: 16:26 Internal Medicine - H&P: HPI Chief complaint: Dyspnea, fever and chills Admitted From: Home Plans for Post Hospital Care: Home History of present illness: Mr. Oliva is a 57 year old male who has history of COPD, hypertension, Holli filter placement, GERD, anxiety, syncope, DVT and PE. Patient with recent admission with pneumonia in March 2017. Patient also had an exacerbation of his COPD was treated with Unasyn while inpatient. Patient qualified for home O2 2 L nasal cannula continuously but currently wears 2L at bedtime only. Patient had home health care services after last admission. Today patient complains of dyspnea, fever, and chills for past 3 days. He indicated that he has been using his bronchodilators and has had to increase his home o2 up to 3.5 liters at times due to the dyspnea. CXR negative. The CT that was completed in the ED showed ground glass, and opacities that was likely infection in right lung. WBC count elevated at 15.7, lactic acid was 2.4. Patient indicated that he has had PNA too often to remember over the past 5 years. He quit smoking 4-5 years ago. The patient was given IV levaquin and rocephin in the ED, will continue IV levaquin daily. Will trend lactic acid until wnl. The patient takes coumadin daily for HX of DVT and PE, he indicated that he has Factor V Leiden. The INR is supra-therapeutic @ 4.6. Coumadin dosing and INR to be managed by pharmacy. Past Med Surg Social Fam HX - Past Medical History Medical history: non-contributory Additional medical history: P, back/ shoulder pain Psychiatric history: anxiety - Past Surgical History Surgical History: non-contributory Additional surgical history: [place] Filter - Social History Smoking Status: 2nd Hand Smoke Exposure Smokeless Tobacco Status: No Alcohol use: none Drug use: none - Family History Father Adopted: No Living Status: Hx Family Cardiac Disorders: Yes (Uncles, dad) Hx Family Respiratory Disorders: Yes Hx Family Cancer: Yes Hx Family GI Disorders: No Mother Adopted: No Hx Family Cancer: Yes (sibling,parents) Internal Medicine - H&P: Meds RX: Gabapentin [Neurontin] 300 mg PO TID 03/27/15 [History] RX: Omeprazole [PriLOSEC] 40 mg PO DAILY@0630 #30 capsule 08/16/15 [Rx] RX: DULoxetine [Cymbalta] 30 mg PO DAILY 02/27/17 [History] RX: Albuterol Sulfate [Albuterol Inhaler] 2 puff IH Q4HR PRN #1 hfa.aer.ad 03/06 [Rx] RX: Atorvastatin [Lipitor] 10 mg PO HS 03/23/17 [History] RX: Lisinopril [Zestril] 20 mg PO DAILY 03/23/17 [History] RX: Ipratropium/Albuterol Neb [Duoneb] 3 ml IH Q6H PRN 30 Days inhsol 03/31/17 [Rx] RX: Levalbuterol Neb [Xopenex Neb] 1.25 mg IH [id number] PRN vial.neb 04/04/17 [Rx ] RX: Metoprolol [Lopressor] 12.5 mg PO BID tablet 04/04/17 [Rx] RX: Tizanidine HCl [Zanaflex] 4 mg PO TID PRN #10 capsule 04/04/17 [Rx] RX: Furosemide [Lasix] 40 mg PO BID #60 tablet 04/05/17 [Rx] RX: ALPRAZolam [Xanax 1 MG Tablet] 1 mg PO BID 04/17/17 [History] RX: Fluticasone/Salmeterol [Advair 250-50 Diskus] 1 puff IH BID 04/17/17 [ History] RX: Oxygen 2 l NS CONT 04/17/17 [History] Warfarin [Coumadin] 8 mg PO DAILY 08/30/17 [History] 3 Allergy/AdvReac Type Severity Reaction Status Date / Time No Known Allergies Allergy Verified 08/13/17 19:48 All Systems PM: A 10-system review of systems was performed and is negative for pertinent findings except as documented above in the HPI. - Constitutional Constitutional: chills, fever(s), no night sweats - EENT Eyes: no change in vision, no discharge, no pain, no photophobia Ears: no ear discharge, no ear pain, no tinnitus Nose, mouth and throat: no dysphagia, no nasal discharge, no neck pain, no sore throat - Cardiovascular Cardiovascular ROS IM: dyspnea, no chest pain, no diaphoresis, no lightheadedness, no palpitations, no syncope - Respiratory Respiratory: cough, dyspnea, wheezing, chest congestion, no excessive phlegm production - Gastrointestinal Gastrointestinal: no abdominal pain, no diarrhea, no hematemesis, no hematochezia, no melena, no nausea, no vomiting - Musculoskeletal Musculoskeletal ROS IM: no numbness, no tingling - Integumentary Integumentary IM: no rash, no unusual bruising - Neurological Neurological ROS: no confusion, no convulsions, no focal weakness, no numbness, no tingling, no tremor(s) - Endocrine Endocrine IM: fatigue - Hematologic/Lymphatic Hematologic/Lymphatic: no easy bruising - Allergic/Immunologic Allergic/Immunologic: wheezing - Constitutional Vitals: Temp Pulse Resp BP Pulse Ox 101.2 F H 88 19 137/73 96 08/30/17 14:13 08/30/17 15:41 08/30/17 15:41 08/30/17 15:41 08/30/17 15:41 General appearance: Present: mild distress, A&O X 3 - Head Head exam: Present: atraumatic, normocephalic - Eye Eye exam: Present: PERRL, conjuntiva pink, sclera anicteric Pupils: Present: PERRL - Neck Neck exam general surgery: Present: supple, trachea midline. Absent: lymphadenopathy - Respiratory Respiratory exam: Present: rhonchi, wheezes. Absent: accessory muscle use, rales - Cardiovascular Cardiovascular exam: Present: RRR, +S1, +S2. Absent: diastolic murmur, gallop, rubs, systolic murmur - GI/Abdominal GI/Abdominal exam: Present: normal bowel sounds, soft, no peritoneal signs. Absent: distended, tenderness - Extremities Exam Extremities exam: Present: tenderness (Left foot tenderness, he indicated he had it xray'd, no fx), warm, radial pulses palpable and symmetrical. Absent: calf tenderness, cyanotic, pedal edema - Neurological Exam Neurological exam: Present: CN II-XII intact, oriented X3, no focal deficits. Absent: pronater drift, facial droop, speech deficit - Skin Skin exam: Present: dry, intact Internal Med - H&P Results - Labs CBC & Chem 7: 08/30/17 14:29 08/30/17 14:29 - Assessment and plan (1) Sepsis Current Visit: Yes Status: Acute Assessment and plan: Likely related to CAP diagnosis 3L IV bolus' started in the ED, will finish on floor. Saline lock iv after bolus completed Lactic acid every 6 hours until under 2 IV Levaquin Qualifiers: Sepsis type: sepsis due to unspecified organism Qualified Code(s): A41.9 - Sepsis, unspecified organism (2) Community acquired pneumonia Current Visit: No Status: Acute Assessment and plan: Will continue levaquin iv daily Bronchodilators q4h Oxygen to keep sats gt 92% Iv solumedrol q8h Incentive spirometry Qualifiers: Laterality: right Lung location: lower lobe of lung Qualified Code(s): J18.1 - Lobar pneumonia, unspecified organism (3) COPD (chronic obstructive pulmonary disease) Current Visit: No Status: Acute Assessment and plan: Bronchodilators q4h Oxygen to keep sats gt 92% Iv solumedrol q8h Incentive spirometry 6x a day Qualifiers: COPD type: chronic bronchitis Chronic bronchitis type: unspecified Qualified Code(s): J42 - Unspecified chronic bronchitis (4) Supratherapeutic INR Current Visit: Yes Status: Acute Assessment and plan: INR is currently 4.6., Patient has history of DVT/PE Pharmacy to dose coumadin and manage daily INR labs (5) HTN (hypertension) Current Visit: Yes Status: Chronic Assessment and plan: Bp is controlled, will continue home medications:Lisinopril 20 mg po daily and Metoprolol 12.5 mg po daily. Qualifiers: Hypertension type: essential hypertension Qualified Code(s): I10 - Essential (primary) hypertension - Time Spent With Patient Total time spent is greater than 50% in coordination of care (as documented) at patient's floor/unit and/or counseling patient: less than 15 minutes <Wolfgang Romano P - Last Filed: 08/30/17 19:14> Date of Encounter: 08/30/17 Internal Medicine - H&P: HPI History of present illness: Mr. Oliva is a 57 year old male All Systems PM: A 10-system review of systems was performed and is negative for pertinent findings except as documented above in the HPI. - Constitutional Vitals: Temp Pulse Resp BP Pulse Ox 99.2 F 81 18 107/66 95 08/30/17 16:27 08/30/17 16:27 08/30/17 16:27 08/30/17 16:27 08/30/17 16:55 Internal Med - H&P Results - Labs CBC & Chem 7: 08/30/17 14:29 08/30/17 14:29 - Attending Attestation I have seen and evaluated the patient. I have performed my own physical examination. I have discussed case with the admitting [employer]. I agree with her assessment and plan as documented in her H&P. Briefly, patient presented to ED today with SOB, fever, chills, and cough. He states he felt like his previous pneumonias, where he had to be hospitalized. Last hospitalization in February 2017. We will admit for sepsis secondary to RLL pneumonia. Likely community acquired given history. Received IV levaquin and IV cefepime in ED. We will continue IV levaquin daily. Has history of COPD, and wheezing on examination, so will add IV solumedrol at lower dose. Respiratory status is stable at this time. He is feeling somewhat better. Will monitor closely. Has received 3L IVF in ED. Will recheck lactic acid and perform sepsis reevaluation. INR slightly supratherapeutic; will hold coumadin for now and let pharmacy manage. Wolfgang Romano MD - Time Spent With Patient Total time spent is greater than 50% in coordination of care (as documented) at patient's floor/unit and/or counseling patient:
[2017-08-30] MEDS ORDERED: Warfarin perPT PO PRN (16:31)
[2017-08-30] MEDS: Furosemide 40 MG TABLET PO SCH (16:39)
[2017-08-30] MEDS ORDERED: 0.9 % Sodium Chloride 1,000 ML ONE (17:58)
[2017-08-30] MEDS: ALPRAZolam 1 MG TABLET PO PRN (18:11)
[2017-08-30] MEDS: Gabapentin 300 MG CAPSULE PO SCH (19:37)
[2017-08-30] MEDS: tiZANidine 4 MG TABLET PO PRN (19:37)
[2017-08-30] MEDS: MethylPREDNISolone 40 MG/ML VIAL IVP SCH (19:37)
[2017-08-30] MEDS: Ipratropium/Albuterol Neb 3 ML IH SCH (21:43)
[2017-08-30] MEDS: Budesonide/Formoterol 80/4.5 MDI IH SCH (21:45)
[2017-08-31 03:25] LABS: Basophils % 0.1 %; Hematocrit 44.8 % (37.5-50.1); Hemoglobin 14.7 g/dL (12.9-16.9); Immature Granulocytes % 0.5 % (0-4); Lymphocytes # 1.3 K/mcL (0.6-4.6); Lymphocytes % 9.3 %; Mean Corpuscular HGB Conc 32.8 g/dL (31.6-35.5); Mean Corpuscular Hemoglobin 29.6 pg (28.0-33.3); Mean Corpuscular Volume 90.1 fL (83.0-100.0); Mean Platelet Volume 9.5 fL (9.4-12.4); Monocytes # 0.3 K/mcL (0.0-1.3); Neutrophils # 12.1 K/mcL (1.6-8.9); Platelet Count 217 K/mcL (140-400); Red Blood Count 4.97 M/mcL (4.19-5.50); Red Cell Distribution Width 13.3 % (11.5-14.5); Segmented Neutrophils % 88.1 %
[2017-08-31 03:32] LABS: INR 4.2
[2017-08-31 03:34] LABS: Prothrombin Time 47.2 Seconds (9.4-12.1)
[2017-08-31 03:44] LABS: BUN/Creatinine Ratio 16 (6-26); Blood Urea Nitrogen 14 mg/dL (6-20); Carbon Dioxide 25 mEq/L (23-29); Chloride 105 mEq/L (98-107); Glucose 155 mg/dL (70-105); Osmolality,Calculated 286 (280-300); Potassium 4.7 mEq/L (3.5-5.1); Sodium 136 mEq/L (136-145); eGFR For African Americans > 60 (> 60); eGFR For Non-African Americans > 60 (> 60)
[2017-08-31] MEDS: Ipratropium/Albuterol Neb 3 ML IH SCH ×4 (03:57→21:30)
[2017-08-31] MEDS: MethylPREDNISolone 40 MG/ML VIAL IVP SCH ×2 (04:36→12:22)
[2017-08-31] MEDS ORDERED: Levofloxacin 750 MG/150 ML 750 MG/150 ML BAG IVPB SCH (09:00)
[2017-08-31] MEDS: Gabapentin 300 MG CAPSULE PO SCH ×3 (09:39→23:24)
[2017-08-31] MEDS: Furosemide 40 MG TABLET PO SCH ×2 (09:40→17:51)
[2017-08-31] MEDS: ALPRAZolam 1 MG TABLET PO PRN ×2 (09:40→23:24)
[2017-08-31] MEDS: Lisinopril 20 MG TABLET PO SCH (09:45)
[2017-08-31] MEDS: Budesonide/Formoterol 80/4.5 MDI IH SCH ×2 (10:49→21:30)
[2017-08-31] MEDS ORDERED: *HR* Warfarin 4 MG TABLET PO SCH (17:00)
[2017-08-31] MEDS: tiZANidine 4 MG TABLET PO PRN ×2 (17:51→23:24)
--- NOTE | 2017-08-31 20:01 | Internal Med Progress Note ---
Date of Encounter: 08/31/17 Time of Encounter: 17:00 - Assessment and plan (1) CHF (congestive heart failure) Current Visit: Yes Status: Acute Qualifiers: Heart failure type: unspecified Heart failure chronicity: chronic Qualified Code(s): I50.9 - Heart failure, unspecified (2) COPD (chronic obstructive pulmonary disease) Current Visit: No Status: Acute Qualifiers: COPD type: chronic bronchitis Chronic bronchitis type: unspecified Qualified Code(s): J42 - Unspecified chronic bronchitis (3) HCAP (healthcare-associated pneumonia) Current Visit: No Status: Acute (4) Obesity (BMI 30-39.9) Current Visit: No Status: Chronic - Time Spent With Patient Plan Patient continued to have fat shortness of breath. In mild respiratory distress , will change Lasix to IV 40 mg IV twice a day, continue aerosol treatment add Mucinex, continue steroids. Close monitoring of renal function. Counseling about incentive spirometry and deep breathing. BiPAP as needed at night. With his recurrent hospitalization and finding on x-ray will add vancomycin and Zosyn to cover for healthcare associated pneumonia Total time spent is greater than 50% in coordination of care (as documented) at patient's floor/unit and/or counseling patient: Greater than 35 minutes - Subjective Interval history: Patient continued to complain of shortness of breath, diffuse wheezing bilateral , productive cough with barajas sputum, history of recurrent hospitalization with pneumonia, patient complaining of orthopnea and paroxysmal nocturnal dyspnea for long time which has been getting worse lately. Patient denies any chest pain - Constitutional Vitals: Temp Pulse Resp BP Pulse Ox 98.2 F 105 18 116/71 94 08/31/17 16:14 08/31/17 16:14 08/31/17 16:14 08/31/17 16:14 08/31/17 16:14 General appearance: Present: mild distress, A&O X 3 - Head Head exam: Present: atraumatic, normocephalic - Neck Neck exam general surgery: Present: supple, trachea midline. Absent: lymphadenopathy - Respiratory Respiratory exam: Present: decreased breath sounds, prolonged expiratory phase, rales, wheezes. Absent: accessory muscle use, rhonchi Additional comments: Prolonged expiratory wheezing bilateral, markedly diminished breathing sound bilateral, rales rhonchi bilateral lung bases - Cardiovascular Cardiovascular exam: Present: RRR, +S1, +S2. Absent: diastolic murmur, gallop, rubs, systolic murmur - GI/Abdominal GI/Abdominal exam: Present: normal bowel sounds, soft, no peritoneal signs. Absent: distended, tenderness - Extremities Exam Extremities exam: Present: warm, radial pulses palpable and symmetrical. Absent : calf tenderness, cyanotic, pedal edema - Skin Skin exam: Present: dry, intact Internal Medicine: Result - Labs CBC & Chem 7: 08/31/17 03:05 08/31/17 03:05 Labs: Short CBC 08/31/17 Range/Units 03:05 WBC 13.8 H (4.3-11.1) K/mcL Hgb 14.7 (12.9-16.9) g/dL Hct 44.8 (37.5-50.1) % Plt Count 217 (140-400) K/mcL Neutrophils # 12.1 H (1.6-8.9) K/mcL BMP 08/31/17 03:05 Sodium 136 Potassium 4.7 Chloride 105 Carbon Dioxide 25 BUN 14 Creatinine 0.85 Glucose 155 H Calcium 9.0 - ABG Interpretation ABG results: PT/INR, D-dimer PT 47.2 Seconds (9.4-12.1) H* 08/31/17 03:05 - VTE Documentation of Mechanical Device: Intermittent pneumatic compression device Consult Discharge Plan - Plan Referrals: NONE,PCP [Primary Care Provider] -
[2017-08-31] MEDS: Insulin LISPRO 300 UNITS/3 ML VIAL SQ SCH (22:45)
[2017-08-31] MEDS: Piperacillin/Tazobactam 3.375 GM in 0.9 % Sodium Chloride Mini Bag 100 ML IVPB SCH (23:22)
[2017-08-31] MEDS: methylPREDNISolone 125 MG/2 ML VIAL IVP SCH (23:23)
[2017-08-31] MEDS: Furosemide 40 MG/4 ML VIAL IVP SCH (23:29)
[2017-09-01 03:37] LABS: Basophils % 0.1 %; Hematocrit 42.1 % (37.5-50.1); Hemoglobin 13.9 g/dL (12.9-16.9); Immature Granulocytes % 0.7 % (0-4); Lymphocytes % 7.5 %; Mean Corpuscular Hemoglobin 29.1 pg (28.0-33.3); Mean Corpuscular Volume 88.1 fL (83.0-100.0); Mean Platelet Volume 9.6 fL (9.4-12.4); Monocytes # 0.6 K/mcL (0.0-1.3); Monocytes % 4.3 %; Neutrophils # 11.9 K/mcL (1.6-8.9); Platelet Count 248 K/mcL (140-400); Red Blood Count 4.78 M/mcL (4.19-5.50); Red Cell Distribution Width 13.3 % (11.5-14.5); Segmented Neutrophils % 87.4 %
[2017-09-01] MEDS: Ipratropium/Albuterol Neb 3 ML IH SCH ×4 (03:40→20:53)
[2017-09-01 03:43] LABS: INR 2.9; Prothrombin Time 31.7 Seconds (9.4-12.1)
[2017-09-01 03:47] LABS: BUN/Creatinine Ratio 19 (6-26); Blood Urea Nitrogen 19 mg/dL (6-20); Calcium 9.6 mg/dL (8.6-10.3); Carbon Dioxide 27 mEq/L (23-29); Chloride 102 mEq/L (98-107); Glucose 190 mg/dL (70-105); Osmolality,Calculated 293 (280-300); Potassium 4.3 mEq/L (3.5-5.1); Sodium 138 mEq/L (136-145); eGFR For African Americans > 60 (> 60); eGFR For Non-African Americans > 60 (> 60)
[2017-09-01] MEDS ORDERED: Aminoglycoside Consult 1 EACH MC ONE (08:02)
[2017-09-01] MEDS: methylPREDNISolone 125 MG/2 ML VIAL IVP SCH (08:05)
[2017-09-01] MEDS: Piperacillin/Tazobactam 3.375 GM in 0.9 % Sodium Chloride Mini Bag 100 ML IVPB SCH ×3 (08:05→23:07)
[2017-09-01] MEDS: Insulin LISPRO 300 UNITS/3 ML VIAL SQ SCH ×3 (08:06→17:06)
[2017-09-01] MEDS: ALPRAZolam 1 MG TABLET PO PRN ×2 (08:07→20:55)
[2017-09-01] MEDS: Furosemide 40 MG/4 ML VIAL IVP SCH ×2 (08:07→17:06)
[2017-09-01] MEDS: Lisinopril 20 MG TABLET PO SCH (08:07)
[2017-09-01] MEDS: tiZANidine 4 MG TABLET PO PRN (08:07)
[2017-09-01] MEDS: Gabapentin 300 MG CAPSULE PO SCH ×3 (08:07→20:51)
[2017-09-01] MEDS: Budesonide/Formoterol 80/4.5 MDI IH SCH ×2 (11:20→20:53)
--- NOTE | 2017-09-01 13:29 | Internal Med Progress Note ---
Date of Encounter: 09/01/17 Time of Encounter: 14:00 - Assessment and plan (1) CHF (congestive heart failure) Current Visit: Yes Status: Acute Qualifiers: Heart failure type: unspecified Heart failure chronicity: chronic Qualified Code(s): I50.9 - Heart failure, unspecified (2) COPD (chronic obstructive pulmonary disease) Current Visit: No Status: Acute Qualifiers: COPD type: chronic bronchitis Chronic bronchitis type: unspecified Qualified Code(s): J42 - Unspecified chronic bronchitis (3) HCAP (healthcare-associated pneumonia) Current Visit: No Status: Acute (4) Obesity (BMI 30-39.9) Current Visit: No Status: Chronic - Time Spent With Patient Continue diuretics, close monitoring of intake and output, good diuresis overnight, check MRSA screening, continue chest physiotherapy aerosol treatment Mucinex and his steroids. Counseling patient again on deep breathing. Increase insulin sliding scale, sputum culture and Gram stain, Total time spent is greater than 50% in coordination of care (as documented) at patient's floor/unit and/or counseling patient: 25 - 35 minutes - Subjective Interval history: Patient continued to complain of shortness of breath, diffuse wheezing bilateral , productive cough with barajas sputum, history of recurrent hospitalization with pneumonia, patient complaining of orthopnea and paroxysmal nocturnal dyspnea for long time which has been getting worse lately. Patient denies any chest pain - Constitutional Vitals: Temp Pulse Resp BP Pulse Ox 98.1 F 70 18 114/63 93 09/01/17 11:13 09/01/17 11:13 09/01/17 11:24 09/01/17 11:13 09/01/17 11:24 General appearance: Present: mild distress, A&O X 3 - Head Head exam: Present: atraumatic, normocephalic - Neck Neck exam general surgery: Present: supple, trachea midline. Absent: lymphadenopathy - Respiratory Respiratory exam: Present: decreased breath sounds, rhonchi, wheezes. Absent: accessory muscle use Additional comments: Bilateral expiratory wheezing. Crackles bilateral lung field scattered - Cardiovascular Cardiovascular exam: Present: RRR, +S1, +S2. Absent: diastolic murmur, gallop, rubs, systolic murmur - GI/Abdominal GI/Abdominal exam: Present: normal bowel sounds, soft, no peritoneal signs. Absent: distended, tenderness Internal Medicine: Result - Labs CBC & Chem 7: 09/01/17 02:47 09/01/17 02:47 Labs: Short CBC 09/01/17 Range/Units 02:47 WBC 13.6 H (4.3-11.1) K/mcL Hgb 13.9 (12.9-16.9) g/dL Hct 42.1 (37.5-50.1) % Plt Count 248 (140-400) K/mcL Neutrophils # 11.9 H (1.6-8.9) K/mcL BMP 09/01/17 02:47 Sodium 138 Potassium 4.3 Chloride 102 Carbon Dioxide 27 BUN 19 Creatinine 1.02 Glucose 190 H Calcium 9.6 - ABG Interpretation ABG results: PT/INR, D-dimer PT 31.7 Seconds (9.4-12.1) H 09/01/17 02:47 - VTE Documentation of Mechanical Device: Intermittent pneumatic compression device Consult Discharge Plan - Plan Referrals: NONE,PCP [Primary Care Provider] -
[2017-09-01] MEDS: MethylPREDNISolone 40 MG/ML VIAL IVP SCH ×2 (15:22→23:07)
[2017-09-01] MEDS ORDERED: *HR* Warfarin 5 MG TABLET PO ONE (18:00)
[2017-09-02] MEDS: Ipratropium/Albuterol Neb 3 ML IH SCH ×6 (00:34→20:04)
[2017-09-02 07:21] LABS: Basophils % 0.1 %; Hemoglobin 13.8 g/dL (12.9-16.9); Immature Granulocytes % 1.2 % (0-4); Lymphocytes # 0.8 K/mcL (0.6-4.6); Lymphocytes % 5.8 %; Mean Corpuscular HGB Conc 33.7 g/dL (31.6-35.5); Mean Corpuscular Hemoglobin 29.7 pg (28.0-33.3); Mean Corpuscular Volume 88.4 fL (83.0-100.0); Mean Platelet Volume 9.4 fL (9.4-12.4); Monocytes # 0.5 K/mcL (0.0-1.3); Monocytes % 3.7 %; Neutrophils # 11.8 K/mcL (1.6-8.9); Platelet Count 263 K/mcL (140-400); Red Blood Count 4.64 M/mcL (4.19-5.50); Red Cell Distribution Width 13.4 % (11.5-14.5); Segmented Neutrophils % 89.2 %
[2017-09-02 07:22] LABS: BUN/Creatinine Ratio 21 (6-26); Blood Urea Nitrogen 20 mg/dL (6-20); Calcium 9.2 mg/dL (8.6-10.3); Carbon Dioxide 26 mEq/L (23-29); Chloride 100 mEq/L (98-107); Glucose 192 mg/dL (70-105); Osmolality,Calculated 294 (280-300); Phosphorous 3.8 mg/dL (2.7-4.5); Potassium 3.9 mEq/L (3.5-5.1); Sodium 138 mEq/L (136-145); eGFR For African Americans > 60 (> 60); eGFR For Non-African Americans > 60 (> 60)
[2017-09-02 07:27] LABS: INR 1.7; Prothrombin Time 18.9 Seconds (9.4-12.1)
[2017-09-02] MEDS: Budesonide/Formoterol 80/4.5 MDI IH SCH ×2 (08:10→20:04)
[2017-09-02] MEDS: MethylPREDNISolone 40 MG/ML VIAL IVP SCH ×2 (08:18→16:44)
[2017-09-02] MEDS: Insulin LISPRO 300 UNITS/3 ML VIAL SQ SCH ×3 (08:18→16:45)
[2017-09-02] MEDS: Furosemide 40 MG/4 ML VIAL IVP SCH ×3 (08:19→21:22)
[2017-09-02] MEDS: Piperacillin/Tazobactam 3.375 GM in 0.9 % Sodium Chloride Mini Bag 100 ML IVPB SCH ×2 (08:19→16:44)
[2017-09-02] MEDS: Lisinopril 20 MG TABLET PO SCH (08:20)
[2017-09-02] MEDS: Gabapentin 300 MG CAPSULE PO SCH ×3 (08:20→20:59)
[2017-09-02] MEDS: ALPRAZolam 1 MG TABLET PO PRN ×2 (08:20→22:13)
[2017-09-02] MEDS: tiZANidine 4 MG TABLET PO PRN ×2 (08:20→22:15)
[2017-09-02 08:39] LABS: Uric Acid 5.1 mg/dL (2.3-7.6)
[2017-09-02] MEDS: Azithromycin 250 MG TABLET PO SCH (08:41)
--- NOTE | 2017-09-02 09:29 | Internal Med Progress Note ---
Date of Encounter: 09/02/17 Time of Encounter: 09:29 - Assessment and plan (1) CHF (congestive heart failure) Current Visit: Yes Status: Acute Qualifiers: Heart failure type: unspecified Heart failure chronicity: chronic Qualified Code(s): I50.9 - Heart failure, unspecified (2) COPD (chronic obstructive pulmonary disease) Current Visit: No Status: Acute Qualifiers: COPD type: chronic bronchitis Chronic bronchitis type: unspecified Qualified Code(s): J42 - Unspecified chronic bronchitis (3) HCAP (healthcare-associated pneumonia) Current Visit: No Status: Acute (4) Obesity (BMI 30-39.9) Current Visit: No Status: Chronic - Time Spent With Patient Plan Good response to diuretic overnight, weight gain, increased Lasix monitor renal function, counseling patient on deep breathing again, start tapering down steroids by tomorrow, continue aerosol treatment and Mucinex, patient need pulmonary happened discharge, discussed with podiatry about his left foot pain he recommended CAT scan left foot, continue steroids and pain medication, uric acid was negative for evidence of gout. Possible discharge in next 24 to 48- hour Total time spent is greater than 50% in coordination of care (as documented) at patient's floor/unit and/or counseling patient: - Subjective Interval history: Patient continued to complain of shortness of breath, diffuse wheezing bilateral , productive cough with barajas sputum, history of recurrent hospitalization with pneumonia, patient complaining of orthopnea and paroxysmal nocturnal dyspnea for long time which has been getting worse lately. Patient denies any chest pain, patient complaini of pain left foot since last week - Constitutional Vitals: Temp Pulse Resp BP Pulse Ox 98.0 F 68 16 137/75 94 09/02/17 07:42 09/02/17 07:42 09/02/17 08:15 09/02/17 07:42 09/02/17 08:47 General appearance: Present: mild distress, A&O X 3 - Head Head exam: Present: atraumatic, normocephalic - Neck Neck exam general surgery: Present: supple, trachea midline. Absent: lymphadenopathy - Respiratory Respiratory exam: Present: decreased breath sounds, rales (Course wheezing bilateral lung better than yesterday), wheezes. Absent: accessory muscle use, rhonchi - Cardiovascular Cardiovascular exam: Present: RRR, +S1, +S2. Absent: gallop, rubs - GI/Abdominal GI/Abdominal exam: Present: normal bowel sounds, soft, no peritoneal signs. Absent: distended, tenderness - Extremities Exam Extremities exam: Present: tenderness (Left forefeet tenderness laterally), warm , radial pulses palpable and symmetrical. Absent: calf tenderness, cyanotic, pedal edema Internal Medicine: Result - Labs CBC & Chem 7: 09/02/17 06:43 09/02/17 06:43 Labs: Short CBC 09/02/17 Range/Units 06:43 WBC 13.3 H (4.3-11.1) K/mcL Hgb 13.8 (12.9-16.9) g/dL Hct 41.0 (37.5-50.1) % Plt Count 263 (140-400) K/mcL Neutrophils # 11.8 H (1.6-8.9) K/mcL BMP 09/02/17 06:43 Sodium 138 Potassium 3.9 Chloride 100 Carbon Dioxide 26 BUN 20 Creatinine 0.96 Glucose 192 H Calcium 9.2 - ABG Interpretation ABG results: PT/INR, D-dimer PT 18.9 Seconds (9.4-12.1) H 09/02/17 06:43 - VTE Documentation of Mechanical Device: Intermittent pneumatic compression device Consult Discharge Plan - Plan Referrals: NONE,PCP [Primary Care Provider] -
--- NOTE | 2017-09-02 13:50 | Podiatry Consult Note ---
Date of Encounter: 09/02/17 Time of Encounter: 13:48 Assessment and Plan (1) Sprain of foot, left Current visit: Yes Status: Acute Assessment: #1 left midfoot sprain #2 cannot discount Lisfranc's injury Plan: #[address] scan of left foot #2 recommend tall pneumatic cast boot for ambulation should CT scan proved negative for Lisfranc's injury Qualifiers: Encounter type: initial encounter Qualified Code(s): S93.602A - Unspecified sprain of left foot, initial encounter History of Present Illness Chief complaint: Left foot injury HPI: Mr. Oliva is a 57 year old male admitted to [facility] for exacerbation of COPD and likely pneumonia with suspicion of sepsis. Patient states he fell into a deep hole proximally a foot deep approximately 2 weeks ago. Patient states he said "sprains" before but this does not feel like 1. Patient states his pain is untenable. Patient states he can barely put weight on his foot. Patient states his foot was edematous and bruised but is now is resolved. He has some residual edema but not significant for is a pending. Patient has pain along the midtarsal joint #345 left foot. Patient has pain on range of motion attempted palpation and range of motion. Patient is guarding. Past Med Surg Social Fam HX - Past Medical History Medical history: COPD, hypertension Additional medical history: P, back/ shoulder pain Psychiatric history: anxiety - Past Surgical History Surgical History: non-contributory Additional surgical history: Holli Filter - Social History Smoking Status: 2nd Hand Smoke Exposure Smokeless Tobacco Status: No Alcohol use: none Drug use: none - Family History Father Adopted: No Living Status: Hx Family Cardiac Disorders: Yes (Uncles, dad) Hx Family Respiratory Disorders: Yes Hx Family Cancer: Yes Hx Family GI Disorders: No Mother Adopted: No Hx Family Cancer: Yes (sibling,parents) Medications and Allergies Gabapentin [Neurontin] 300 mg PO TID 03/27/15 [History] Omeprazole [PriLOSEC] 40 mg PO DAILY@0630 #30 capsule 08/16/15 [Rx] DULoxetine [Cymbalta] 30 mg PO DAILY 02/27/17 [History] Albuterol Sulfate [Albuterol Inhaler] 2 puff IH Q4HR PRN #1 hfa.aer.[id number] 03/06/17 [Rx] Atorvastatin [Lipitor] 10 mg PO HS 03/23/17 [History] Lisinopril [Zestril] 20 mg PO DAILY 03/23/17 [History] Ipratropium/Albuterol Neb [Duoneb] 3 ml IH Q6H PRN 30 Days inhsol 03/31/17 [Rx] Levalbuterol Neb [Xopenex Neb] 1.25 mg IH [id number] PRN vial.neb 04/04/17 [Rx] Metoprolol [Lopressor] 12.5 mg PO BID tablet 04/04/17 [Rx] Tizanidine HCl [Zanaflex] 4 mg PO TID PRN #10 capsule 04/04/17 [Rx] Furosemide [Lasix] 40 mg PO BID #60 tablet 04/05/17 [Rx] ALPRAZolam [Xanax 1 MG Tablet] 1 mg PO BID 04/17/17 [History] Fluticasone/Salmeterol [Advair 250-50 Diskus] 1 puff IH BID 04/17/17 [History] Oxygen 2 l NS CONT 04/17/17 [History] Warfarin [Coumadin] 8 mg PO DAILY 08/30/17 [History] 3 Allergy/AdvReac Type Severity Reaction Status Date / Time No Known Allergies Allergy Verified 08/13/17 19:48 All Systems Reviewed: The remainder of the systems were reviewed and are negative. Patient has presently no chest pain nausea vomiting fever chills. Does not complain of any bowel or bladder dysfunction. He has intact sensation in both lower extremities. Physical Exam - Constitutional Vitals: Temp Pulse Resp BP Pulse Ox 98.1 F 75 16 120/66 96 09/02/17 11:25 09/02/17 11:25 09/02/17 11:25 09/02/17 11:25 09/02/17 11:25 General appearance: mild distress, obese - Extremities Exam Extremities exam: Present: normal capillary refill, pedal edema, tenderness ( Tenderness on palpation of dorsal aspect of TMT #2345 left foot) - Expanded Lower Extremities Exam Ankle exam: Present: normal inspection (Anterior drawer sign is negative.) Foot/Toe exam: Present: tenderness at base of 5th metatarsal (Patient has tenderness on palpation and range of motion TMT 2345 left foot) Neuro vascular tendon exam: Present: no vascular compromise Gait: Present: not tested/not observed - Neurological Exam Neurological exam: Present: oriented X3, reflexes normal, strengths equal and symetr throughout (Intact epicritic sensation, vibratory sensation 2 point discrimination light touch from toes to tibia bilaterally.) - Psychiatric Psychiatric exam: Present: anxious - Vascular Capillary Refill: less than 3 seconds Lower Extremity Vascular: no vascular compromise - Ankle & Foot Appearance ankle: normal Foot appearance: swelling (Trace/4) Foot swelling location: dorsal (Dorsal aspect only.) Effusion grade foot exam: trace Tenderness with palpation ankle: dorsal foot, plantar foot Foot pain relieved by non-weight bearing: Yes Alignment: normal Foot alignment: normal Full ROM ankle: yes ROM: dorsiflexion: normal ROM: plantarflexion: normal ROM: eversion: normal ROM: first MTP joint flexion: normal (Patient does exhibit hallux abductovalgus with minor bunion) Strength: dorsiflexion: 5/5 Strength: plantarflexion: 5/5 Strength: inversion: 5/5 Strength: eversion: 5/5 Strength: toe extension: 5/5 Strength: toe flexion: 5/5 Instability: anterior drawer: negative, anterior talofibular ligament injury tests: negative, calcaneofibular ligament injury tests: negative Tests: achilles rupture tests: negative, Tinel's sign at sural nerve: negative, Tinel's sign at tarsal tunnel: negative Results - Labs Result Diagrams: 09/02/17 06:43 09/02/17 06:43 Labs: Abnormal lab results WBC 13.3 K/mcL (4.3-11.1) H 09/02/17 06:43 Neutrophils # 11.8 K/mcL (1.6-8.9) H 09/02/17 06:43 PT 18.9 Seconds (9.4-12.1) H 09/02/17 06:43 Glucose 192 mg/dL (70-105) H 09/02/17 06:43 POC Glucose 154 mg/dL (70-99) H 09/02/17 08:08 Vancomycin Trough 17 mcg/mL (5-10) H 09/02/17 09:20 H & H 09/02/17 Range/Units 06:43 Hgb 13.8 (12.9-16.9) g/dL Hct 41.0 (37.5-50.1) % All other labs normal. - Diagnostic results Ankle/Foot x-ray: image reviewed Consult Discharge Plan - Plan Referrals: NONE,PCP [Primary Care Provider] -
[2017-09-02] MEDS: GuaiFENesin Liq 200 MG/10 ML UDC PO PRN ×2 (14:49→21:00)
[2017-09-02] MEDS ORDERED: *HR* Warfarin 5 MG TABLET PO ONE (18:00)
[2017-09-03] MEDS: Ipratropium/Albuterol Neb 3 ML IH SCH ×7 (00:06→23:33)
[2017-09-03] MEDS: MethylPREDNISolone 40 MG/ML VIAL IVP SCH ×4 (00:18→15:16)
[2017-09-03] MEDS: Piperacillin/Tazobactam 3.375 GM in 0.9 % Sodium Chloride Mini Bag 100 ML IVPB SCH ×3 (00:18→15:16)
[2017-09-03 04:35] LABS: INR 1.9; Prothrombin Time 20.7 Seconds (9.4-12.1)
[2017-09-03] MEDS: Budesonide/Formoterol 80/4.5 MDI IH SCH ×2 (07:36→19:35)
[2017-09-03] MEDS: Azithromycin 250 MG TABLET PO SCH (08:06)
[2017-09-03] MEDS: tiZANidine 4 MG TABLET PO PRN ×3 (08:06→19:58)
[2017-09-03] MEDS: Gabapentin 300 MG CAPSULE PO SCH ×3 (08:06→19:58)
[2017-09-03] MEDS: Lisinopril 20 MG TABLET PO SCH (08:06)
[2017-09-03] MEDS: ALPRAZolam 1 MG TABLET PO PRN ×2 (08:06→19:59)
[2017-09-03] MEDS: GuaiFENesin Liq 200 MG/10 ML UDC PO PRN ×3 (08:07→20:00)
[2017-09-03] MEDS: Furosemide 40 MG/4 ML VIAL IVP SCH ×3 (08:07→16:35)
[2017-09-03] MEDS: Insulin LISPRO 300 UNITS/3 ML VIAL SQ SCH ×3 (08:08→16:35)
--- NOTE | 2017-09-03 09:37 | Podiatry Progress Note ---
Date of Encounter: 09/03/17 Time of Encounter: 09:34 - Assessment and Plan (1) Sprain of foot, left Current Visit: Yes Status: Acute Assessment: #1 left midfoot sprain #2 cannot discount Lisfranc's injury Plan: #[address] scan of left foot #2 recommend tall pneumatic cast boot for ambulation should CT scan proved negative for Lisfranc's injury Examination evaluation for 09/03/2017 Assessment: #1 history of midfoot sprain now 2 weeks out Radiographic imaging are unremarkable and clinical exam unremarkable Plan: #1 would likely recommend cast boot for ambulation at discharge. #2 recommend physical therapy at discharge for left midfoot sprain. Qualifiers: Encounter type: initial encounter Qualified Code(s): S93.602A - Unspecified sprain of left foot, initial encounter Subjective Principal diagnosis: Sprain left foot Interval history: Patient underwent CT scan which exhibited no evidence of fracture subluxation or dislocation of the left midfoot. Concern for Lisfranc's injury. X-rays negative CT scan negative. Patient sleeping soundly. Cursory exam of left foot shows no edema erythema or ecchymosis Objective - Vital Signs Vital Signs: Vital Signs Temp Pulse Resp BP Pulse Ox 09/03/17 07:36 16 93 09/03/17 07:13 97.7 F 78 16 137/81 94 09/03/17 03:48 14 98 09/03/17 03:35 70 16 117/74 94 09/03/17 00:08 18 91 09/02/17 23:55 97.7 F 76 16 136/80 92 09/02/17 20:06 16 95 09/02/17 19:35 98.5 F 105 16 103/71 94 09/02/17 15:37 18 93 09/02/17 15:10 97.6 F 70 18 133/72 93 09/02/17 11:25 98.1 F 75 16 120/66 96 09/02/17 11:04 16 92 Intake and Output 09/02/17 09/03/17 09/03/17 23:59 07:59 15:59 Intake Total 100 / 100 100 / 100 60 / 60 Output Total 800 / 800 875 / 875 0 / 0 Balance -700 / -700 -775 / -775 60 / 60 Intake: IV Fluids 100 / 100 100 / 100 Zosyn 3.375 GM In 0.9 % Sodium 100 / 100 100 / 100 Chloride (Mini-Bag +) 100 ML @ 25 mls/hr IVPB Q8HR [facility] Rx#: [id number] Oral 60 / 60 Output: Urine 800 / 800 875 / 875 0 / 0 Other: Weight 128.593 kg Blood Glucose* 182 230 - Exam Exam: No edema erythema or ecchymosis left foot. - Radiology X-Rays: image reviewed MRIs: image reviewed CTs: image reviewed - Lab Result Diagrams: 09/02/17 06:43 09/02/17 06:43 Labs: Abnormal lab results WBC 13.3 K/mcL (4.3-11.1) H 09/02/17 06:43 Neutrophils # 11.8 K/mcL (1.6-8.9) H 09/02/17 06:43 PT 20.7 Seconds (9.4-12.1) H 09/03/17 03:55 Glucose 192 mg/dL (70-105) H 09/02/17 06:43 POC Glucose 182 mg/dL (70-99) H 09/02/17 19:38 Vancomycin Trough 17 mcg/mL (5-10) H 09/02/17 09:20 - VTE Documentation of Mechanical Device: Intermittent pneumatic compression device Consult Discharge Plan - Plan Referrals: NONE,PCP [Primary Care Provider] -
--- NOTE | 2017-09-03 17:33 | Internal Med Progress Note ---
Date of Encounter: 09/03/17 Time of Encounter: 13:40 - Assessment and plan (1) CHF (congestive heart failure) Current Visit: Yes Status: Acute Qualifiers: Heart failure type: unspecified Heart failure chronicity: chronic Qualified Code(s): I50.9 - Heart failure, unspecified (2) COPD (chronic obstructive pulmonary disease) Current Visit: No Status: Acute Qualifiers: COPD type: chronic bronchitis Chronic bronchitis type: unspecified Qualified Code(s): J42 - Unspecified chronic bronchitis (3) HCAP (healthcare-associated pneumonia) Current Visit: No Status: Acute (4) Obesity (BMI 30-39.9) Current Visit: No Status: Chronic - Time Spent With Patient Plan Discussed with pulmonary team, recommended that to order respiratory Continue current treatment nothing by mouth after midnight just in case if patient would have for bronchoscopy tomorrow. Pulmonary reevaluates the patient. Continue IV steroid IV antibiotic. Continue diuretics, counseling patient about water intake And water restriction, Total time spent is greater than 50% in coordination of care (as documented) at patient's floor/unit and/or counseling patient: 25 - 35 minutes - Subjective Interval history: Patient continued to have shortness of breath or wheezing chest tightness, very hard to get rid of his phlegm - Constitutional Vitals: Temp Pulse Resp BP Pulse Ox 98.2 F 94 15 123/78 96 09/03/17 15:31 09/03/17 15:31 09/03/17 15:31 09/03/17 15:31 09/03/17 15:31 General appearance: Present: mild distress, A&O X 3 - Neck Neck exam general surgery: Present: supple, trachea midline. Absent: lymphadenopathy - Respiratory Respiratory exam: Present: accessory muscle use, decreased breath sounds, prolonged expiratory phase, rales, wheezes (Diffuse coarse wheezing bilateral same like yesterday). Absent: rhonchi - Cardiovascular Cardiovascular exam: Present: RRR, +S1, +S2. Absent: diastolic murmur, gallop, rubs, systolic murmur - GI/Abdominal GI/Abdominal exam: Present: normal bowel sounds, soft, no peritoneal signs. Absent: distended, tenderness - Extremities Exam Extremities exam: Present: warm, radial pulses palpable and symmetrical. Absent : calf tenderness, cyanotic, pedal edema Internal Medicine: Result - Labs CBC & Chem 7: 09/02/17 06:43 09/02/17 06:43 - ABG Interpretation ABG results: PT/INR, D-dimer PT 20.7 Seconds (9.4-12.1) H 09/03/17 03:55 - Impressions Impressions Foot CT 09/02/17 13:55 IMPRESSION: 1. No acute osseous abnormality identified. 2. Alignment of the Lisfranc joint appears anatomic on these nonweightbearing views. 3. 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 4. Mild hindfoot and midfoot osteoarthritis. D/ / Carlos Henderson MD / Carlos Henderson MD Interpreting Provider: Carlos Henderson MD - VTE Documentation of Mechanical Device: Intermittent pneumatic compression device Consult Discharge Plan - Plan Referrals: NONE,PCP [Primary Care Provider] -
[2017-09-03] MEDS ORDERED: metOLazone 5 MG TABLET PO ONE (18:00)
[2017-09-03] MEDS ORDERED: *HR* Warfarin 5 MG TABLET PO ONE (18:00)
[2017-09-03 18:27] LABS: Adenovirus Not Detected (Not Detect); Bordetella Pertussis Not Detected (Not Detect); Chlamydophila pneumoniae Not Detected (Not Detect); Coronavirus 229E Not Detected (Not Detect); Coronavirus HKU1 Not Detected (Not Detect); Coronavirus NL63 Not Detected (Not Detect); Coronavirus OC43 Not Detected (Not Detect); Human Metapneumovirus Not Detected (Not Detect); Human Rhinovirus/Enterovirus Not Detected (Not Detect); Influenza A Subtype 2009 H1 Not Detected (Not Detect); Influenza A Untypeable Not Detected (Not Detect); Influenza B Not Detected (Not Detect); Mycoplasma pneumoniae Not Detected (Not Detect); Parainfluenza Virus 1 Not Detected (Not Detect); Parainfluenza Virus 2 Not Detected (Not Detect); Parainfluenza Virus 3 Not Detected (Not Detect); Parainfluenza Virus 4 Not Detected (Not Detect); Respiratory Syncytial Virus Not Detected (Not Detect)
--- NOTE | 2017-09-03 20:24 | Electrocardiograph Report ---
[address] [place] [address] Test Date: 2017-08-30 Pat Name: Mason Oliva Department: 104 Room: 2A Gender: M [employer] Machine: ELKIN : [id number] Requested By: Benoit Waller Order Number: [id number] Reading MD: Morgan Cantu Measurements Intervals [place] Rate: 102 P: 63 MD: 162 QRS: 24 QRSD: 74 T: 65 QT: 293 QTc: 352 Interpretive Statements SINUS TACHYCARDIA POSSIBLE ANTERIOR MYOCARDIAL INFARCTION, PROBABLY OLD Electronically Signed On 09-03-2017 20:22:57 EDT by Morgan Cantu
[2017-09-04] MEDS: MethylPREDNISolone 40 MG/ML VIAL IVP SCH ×3 (00:48→15:18)
[2017-09-04] MEDS: Piperacillin/Tazobactam 3.375 GM in 0.9 % Sodium Chloride Mini Bag 100 ML IVPB SCH ×3 (00:48→15:18)
[2017-09-04] MEDS: Ipratropium/Albuterol Neb 3 ML IH SCH ×3 (03:35→11:05)
[2017-09-04 04:37] LABS: Basophils % 0.1 %; Hematocrit 45.4 % (37.5-50.1); Immature Granulocytes % 2.5 % (0-4); Lymphocytes # 0.8 K/mcL (0.6-4.6); Lymphocytes % 6.8 %; Mean Corpuscular Hemoglobin 29.4 pg (28.0-33.3); Mean Corpuscular Volume 88.8 fL (83.0-100.0); Monocytes % 8.6 %; Neutrophils # 9.4 K/mcL (1.6-8.9); Platelet Count 288 K/mcL (140-400); Red Blood Count 5.11 M/mcL (4.19-5.50); Red Cell Distribution Width 13.5 % (11.5-14.5)
[2017-09-04 04:41] LABS: INR 2.3; Prothrombin Time 24.9 Seconds (9.4-12.1)
[2017-09-04] MEDS: GuaiFENesin Liq 200 MG/10 ML UDC PO PRN ×2 (04:44→15:25)
[2017-09-04] MEDS: ALPRAZolam 1 MG TABLET PO PRN ×2 (04:44→15:24)
[2017-09-04] MEDS: Benzonatate 100 MG CAPSULE PO PRN ×2 (04:44→15:24)
[2017-09-04 04:58] LABS: BUN/Creatinine Ratio 21 (6-26); Blood Urea Nitrogen 25 mg/dL (6-20); Calcium 9.4 mg/dL (8.6-10.3); Carbon Dioxide 34 mEq/L (23-29); Chloride 92 mEq/L (98-107); Glucose 236 mg/dL (70-105); Magnesium 2.3 mg/dL (1.6-2.6); Osmolality,Calculated 296 (280-300); Phosphorous 4.2 mg/dL (2.7-4.5); Potassium 3.6 mEq/L (3.5-5.1); Sodium 137 mEq/L (136-145); eGFR For African Americans > 60 (> 60); eGFR For Non-African Americans > 60 (> 60)
[2017-09-04] MEDS ORDERED: Famotidine 20 MG TABLET PO ONE (05:00)
[2017-09-04] MEDS: Budesonide/Formoterol 80/4.5 MDI IH SCH (07:37)
[2017-09-04] MEDS: Insulin LISPRO 300 UNITS/3 ML VIAL SQ SCH ×3 (07:46→16:19)
[2017-09-04] MEDS: Azithromycin 250 MG TABLET PO SCH (08:22)
[2017-09-04] MEDS: Lisinopril 20 MG TABLET PO SCH (08:23)
[2017-09-04] MEDS: Gabapentin 300 MG CAPSULE PO SCH ×3 (08:23→20:04)
[2017-09-04] MEDS: Furosemide 40 MG/4 ML VIAL IVP SCH ×3 (08:23→20:03)
[2017-09-04] MEDS: tiZANidine 4 MG TABLET PO PRN ×2 (08:42→15:25)
[2017-09-04] MEDS ORDERED: Famotidine 20 MG TABLET PO SCH (09:00)
--- NOTE | 2017-09-04 10:20 | Pulmonology Consult Note ---
<ParthaIsijarett M - Last Filed: 09/04/17 10:55> Date of Encounter: 09/04/17 Medications and Allergies Gabapentin [Neurontin] 300 mg PO TID 03/27/15 [History] Omeprazole [PriLOSEC] 40 mg PO DAILY@0630 #30 capsule 08/16/15 [Rx] DULoxetine [Cymbalta] 30 mg PO DAILY 02/27/17 [History] Albuterol Sulfate [Albuterol Inhaler] 2 puff IH Q4HR PRN #1 [id number].aer.[id number] 03/06/17 [Rx] Atorvastatin [Lipitor] 10 mg PO HS 03/23/17 [History] Lisinopril [Zestril] 20 mg PO DAILY 03/23/17 [History] Ipratropium/Albuterol Neb [Duoneb] 3 ml IH Q6H PRN 30 Days inhsol 03/31/17 [Rx] Levalbuterol Neb [Xopenex Neb] 1.25 mg IH [id number] PRN vial.neb 04/04/17 [Rx] Metoprolol [Lopressor] 12.5 mg PO BID tablet 04/04/17 [Rx] Tizanidine HCl [Zanaflex] 4 mg PO TID PRN #10 capsule 04/04/17 [Rx] Furosemide [Lasix] 40 mg PO BID #60 tablet 04/05/17 [Rx] ALPRAZolam [Xanax 1 MG Tablet] 1 mg PO BID 04/17/17 [History] Fluticasone/Salmeterol [Advair 250-50 Diskus] 1 puff IH BID 04/17/17 [History] Oxygen 2 l NS CONT 04/17/17 [History] Warfarin [Coumadin] 8 mg PO DAILY 08/30/17 [History] 3 Allergy/AdvReac Type Severity Reaction Status Date / Time No Known Allergies Allergy Verified 08/13/17 19:48 All Systems: The remainder of the systems were reviewed and are negative Physical Examination Vital Signs: Vital Signs, Last 4 Hours Temp Pulse Resp BP Pulse Ox 09/04/17 07:37 16 93 09/04/17 07:00 97.5 F L 68 15 131/71 96 Results - Laboratory Findings CBC and BMP: 09/04/17 04:18 09/04/17 04:18 PT/INR, D-dimer PT 24.9 Seconds (9.4-12.1) H 09/04/17 04:18 Abnormal lab findings: Abnormal lab results WBC 11.4 K/mcL (4.3-11.1) H 09/04/17 04:18 MPV 9.0 fL (9.4-12.4) L 09/04/17 04:18 Neutrophils # 9.4 K/mcL (1.6-8.9) H 09/04/17 04:18 PT 24.9 Seconds (9.4-12.1) H 09/04/17 04:18 Chloride 92 mEq/L (98-107) L 09/04/17 04:18 Carbon Dioxide 34 mEq/L (23-29) H 09/04/17 04:18 BUN 25 mg/dL (6-20) H 09/04/17 04:18 Glucose 236 mg/dL (70-105) H 09/04/17 04:18 POC Glucose 215 mg/dL (70-99) H 09/03/17 20:04 Prealbumin 44.4 mg/dL (17.0-34.0) H 09/04/17 04:18 Vancomycin Trough 17 mcg/mL (5-10) H 09/02/17 09:20 - Clinical Findings Intake & Output: Intake & Output 09/03/17 09/04/17 09/04/17 23:59 07:59 15:59 Intake Total 820 / 820 100 / 100 90 / 90 Output Total 600 / 600 850 / 850 750 / 750 Balance 220 / 220 -750 / -750 -660 / -660 Weight 128.457 kg Consult Discharge Plan - Plan Referrals: NONE,PCP [Primary Care Provider] - - Attending Attestation I examined this patient and my medical decision-making was reviewed with the Resident Physician. I agree with the documented findings, disposition and treatment plan as described except to the extent set forth below. Patient seen and examined. Labs, radiology, chart personally reviewed. Agree with resident's history and physical, assessment, plan with following comments: INSTRUCTIONAL FACILITATOR: Patient follows commands, Pulmonary: Acceptable oxygenation and ventilation and because of INR is more than 2 will hold bronchoscopy for now, discussed with the pharmacist poor transition and bridging with Lovenox due to his hypercoagulable state and since patient has recurrent pneumonia, we will consult infectious disease and hold any inhaled corticosteroids. Also patient has poor dentition and he will need to follow-up with dentist. Thank you for consultation we will continue follow-up. <Luis Carlos Romano - Last Filed: 09/04/17 13:13> Date of Encounter: 09/04/17 Time of Encounter: 09:15 Assessment and Plan (1) Recurrent pneumonia Current Visit: Yes Status: Acute History of 3 episodes of PNA since February 2017 and [address] to current one, ground glass opacities were evident in the R middle and lower lobe, whereas now it is in the R upper lobe. No anatomic abnormalities were appreciated. Given the location of the opacity in the RUL and his reports of hemoptiysis and night sweats, TB was initially a consideration. However patient denies coming into contact with anyone having TB, no exposure in daily life, no recent weight loss, no clubbing, no erythema nodosum, an no history of DM, it makes the diagnosis unlikely. Upon inspection of the patient's oropharynx , it was evident that he had very poor dental hygeine and given that he is normally on an inhaled corticosteroid for his COPD, his recurrent PNA can be due to infection from colonization of pathogenic bacteria in the oropharynx. A bronchoscopy in indicated this case due to patient's recurrent PNA, however since he is on warfarin for his history of blood clots and Factor V disorder, his INR is 2.3 and a bronchoscopy while have to be postponed until his INR will normalize. Patient is currently on day 5 of zosyn and day 3 of azithromycin. - Put warfarin on hold for now. Switch to lovenox. - Recheck INR in the AM. - Discontinue Symbicort. Discontinue duonebs and switch to Spiriva and scheduled albuterol. - Continue zosyn and azithromycin. - Consult to infectious disease. - Plan for bronchoscopy once INR has normalized. (2) COPD exacerbation Current Visit: No Status: Acute Patient at 95% O2 on 3 L O2 NC. Quit smoking 4-5 years ago. 25-50 pack year. Normally on oxygen at home. Currently on duonebs and symbicort. On methylprednisone 80 mg day 4. - Discontinue duonebs and symbicort. - Start spiriva and scheduled albuterol. - Continue IV steroids. (3) CHF (congestive heart failure) Current Visit: Yes Status: Acute Last echo on 03/29/17 shows an LVEF of 60-65% with no significant valvular dysfunction. Fluid balance of -1835. No signs of edema on exam. Creatinine has increased from 0.96 up to 1.19. - Recommend decreasing lasix 40 IV TID to BID. Qualifiers: Heart failure type: unspecified Heart failure chronicity: chronic Qualified Code(s): I50.9 - Heart failure, unspecified (4) Factor V Leiden Current Visit: Yes Status: Acute Takes warfarin at home. Current INR at 2.3. - Hold warfarin and switch to lovenox in preparation for brohncoscopy. (5) History of pulmonary embolism Current Visit: No Status: Chronic [place] IVC filter in place. - See plan above. (6) DVT prophylaxis Current Visit: No Status: Acute On lovenox. History of Present Illness Consult date: 09/04/17 Requesting physician: Nadine Mattson Reason for consult: COPD Chief complaint: SOB, Fever History of present illness: Mr. Oliva is a 57 year old male who has history of recurrent PNA, COPD, hypertension, Holli filter placement, GERD, anxiety, syncope, Factor V leiden deficiency, DVT and PE that presented on 08/30/17 for SOB and fever x 3 days. He reports that he is been admitted for pneumonia at 8 times, more recently 3 times since February 2017. He admits to having a fever of 101 on day of admission. He has been having issues of dyspnea at home and subsequently had to increase oxygen to 3.5 L at home. Patient has smoking history of 25-50 pack years. He quit smoking 5 years ago. He is currently on warfarin at home secondary to factor V Leyden deficiency disorder. Patient has a Holli IVC filter in place as a result. Initial chest x-ray upon admission was negative however CT showed groundglass opacities indicating infection likely in the right upper lobe of the lung. Patient displays leukocytosis of 15.7 and an elevated lactic acid at 2.4. He was put on IV Levaquin and Rocephin in the ED ED and subsequently was being continued only for Levaquin for treatment. 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 He admits to intermittent hemoptysis. He admits to night sweats for the past 6 months. He denies being in contact with anyone known to have TB. He denies any recent travel. When seen today he admits to intermittent sharp chest pain that is exacerbated with cough. He admits to a left lower quadrant abdominal pain for the past 4-5 months that has been intermittent. He says laying down makes the pain worse. He denies any diarrhea or constipation. Denies any melena or hematochezia. He does admit to some minor dysuria but denies any hematuria. Past Med Surg Social Fam HX - Past Medical History Medical history: COPD, hypertension Additional medical history: P, back/ shoulder pain Psychiatric history: anxiety - Past Surgical History Surgical History: non-contributory Additional surgical history: Holli Filter - Social History Smoking Status: 2nd Hand Smoke Exposure Smokeless Tobacco Status: No Alcohol use: none Drug use: none - Family History Father Adopted: No Living Status: Hx Family Cardiac Disorders: Yes (Uncles, dad) Hx Family Respiratory Disorders: Yes Hx Family Cancer: Yes Hx Family GI Disorders: No Mother Adopted: No Hx Family Cancer: Yes (sibling,parents) All Systems: The remainder of the systems were reviewed and are negative - Constitutional Constitutional: fatigue, night sweats, no headache(s), no weight loss - Cardiovascular Cardiovascular: as per HPI, chest pain (With coughing), dyspnea - Respiratory Respiratory: as per HPI, dyspnea, hemoptysis, wheezing - Gastrointestinal Gastrointestinal: as per HPI, abdominal pain, no hematemesis, no hematochezia, no loose stools, no melena, no nausea, no vomiting - Genitourinary Genitourinary: difficulty urinating, dysuria, no hematuria - Musculoskeletal Musculoskeletal: weakness, back pain - Neurological Neurological: no dizziness, no headache(s) - Psychiatric Psychiatric: as per HPI Physical Examination Vital Signs: Vital Signs, Last 4 Hours Temp Pulse Resp BP Pulse Ox 09/04/17 07:37 16 93 09/04/17 07:00 97.5 F L 68 15 131/71 96 General appearance: no acute distress Eyes: nonicteric ENT: oropharynx dry, other (Poor dental hygeine ) Neck: supple Effort: mildly labored Inspection: normal Auscultation: bilateral: wheezes, rhonchi Cardiovascular: regular rate and rhythm Gastrointestinal: hypoactive bowel sounds, soft, tender (Minor tenderness to LLQ with deep palpation ), non-distended Integumentary: normal Extremities: no cyanosis, no edema, no clubbing, pink and warm, pulses normal, no ischemia or petechiae, other (Minor L calf tenderness. Minor pain with Parveen' s test. ) Musculoskeletal: no deformities, ROM normal normal mental status mood appropriate, affect normal Results - Laboratory Findings CBC and BMP: 09/04/17 04:18 09/04/17 04:18 PT/INR, D-dimer PT 24.9 Seconds (9.4-12.1) H 09/04/17 04:18 Abnormal lab findings: Abnormal lab results WBC 11.4 K/mcL (4.3-11.1) H 09/04/17 04:18 MPV 9.0 fL (9.4-12.4) L 09/04/17 04:18 Neutrophils # 9.4 K/mcL (1.6-8.9) H 09/04/17 04:18 PT 24.9 Seconds (9.4-12.1) H 09/04/17 04:18 Chloride 92 mEq/L (98-107) L 09/04/17 04:18 Carbon Dioxide 34 mEq/L (23-29) H 09/04/17 04:18 BUN 25 mg/dL (6-20) H 09/04/17 04:18 Glucose 236 mg/dL (70-105) H 09/04/17 04:18 POC Glucose 215 mg/dL (70-99) H 09/03/17 20:04 Prealbumin 44.4 mg/dL (17.0-34.0) H 09/04/17 04:18 Vancomycin Trough 17 mcg/mL (5-10) H 09/02/17 09:20 - Clinical Findings Intake & Output: Intake & Output 09/03/17 09/04/17 09/04/17 23:59 07:59 15:59 Intake Total 820 / 820 100 / 100 90 / 90 Output Total 600 / 600 850 / 850 750 / 750 Balance 220 / 220 -750 / -750 -660 / -660 Weight 128.457 kg
--- NOTE | 2017-09-04 12:44 | Internal Med Progress Note ---
Date of Encounter: 09/04/17 Time of Encounter: 12:42 - Assessment and plan (1) CHF (congestive heart failure) Current Visit: Yes Status: Acute Assessment and plan: Patient is chronically on Lasix at 40 mg twice a day, with significant weight gain recently, patient had very poor response to oral Lasix A change it to IV temporary, patient had good response to diuresis, cut back to home dose 40 mg twice a day May consider to change it to oral tomorrow, cardiology was consulted for further evaluation observation is Bishay with recent EKG changes which considered old changes, may benefit from further ischemic workup with his risk factor once his COPD under good control Qualifiers: Heart failure type: diastolic Heart failure chronicity: chronic Qualified Code(s): I50.32 - Chronic diastolic (congestive) heart failure Code(s): I50.9 - Heart failure, unspecified SNOMED Code(s): 34840033 (2) COPD (chronic obstructive pulmonary disease) Current Visit: No Status: Acute Assessment and plan: Appreciate pulmonary input need bronchoscopy Qualifiers: COPD type: chronic bronchitis Chronic bronchitis type: unspecified Qualified Code(s): J42 - Unspecified chronic bronchitis (3) HCAP (healthcare-associated pneumonia) Current Visit: No Status: Acute (4) Obesity (BMI 30-39.9) Current Visit: No Status: Chronic - Time Spent With Patient Plan Patient was evaluated by pulmonary team, based on the recommendation patient will need bronchoscopy once his INR is down for right now. She was Lovenox monitor INR, recommended ID Consult, will discuss with ID, continue current treatment for now, based on pulmonary recommendation discontinue oral inhaled steroid for now, continue diuretics, patient may need further invasive workup for ischemic heart disease, cardiac echo reviewed which was done on March 2017 normal ejection fraction, EKG sinus stated changes compared to old EKG, patient is currently does not have any chest pain, we will consult cardiology for further evaluation, case discussed with cardiology as well as infection was disease Total time spent is greater than 50% in coordination of care (as documented) at patient's floor/unit and/or counseling patient: 25 - 35 minutes - Subjective Interval history: Patient continued to complain of shortness of breath and wheezing, hard to get rid of his phlegm, patient denies any fever or chills, history of coughing up bloody sputum in the past, good response to diuresis. He denies any dizziness or lightheadedness patient is complaining of lower back pain which has been getting worse lately concerning about the bed and laying down on bed for long time. - Constitutional Vitals: Temp Pulse Resp BP Pulse Ox 98.1 F 89 15 139/83 95 09/04/17 11:26 09/04/17 11:26 09/04/17 11:26 09/04/17 11:26 09/04/17 11:26 General appearance: Present: mild distress, A&O X 3 - Head Head exam: Present: atraumatic, normocephalic - Neck Neck exam general surgery: Present: supple, trachea midline. Absent: lymphadenopathy - Respiratory Respiratory exam: Present: decreased breath sounds, rales, wheezes. Absent: accessory muscle use, rhonchi Additional comments: Diffuse expiratory wheezing and crackles bilateral lung - Cardiovascular Cardiovascular exam: Present: RRR, +S1, +S2. Absent: diastolic murmur, gallop, rubs, systolic murmur - GI/Abdominal GI/Abdominal exam: Present: distended (Morbidly obese), normal bowel sounds, soft, no peritoneal signs. Absent: tenderness - Extremities Exam Extremities exam: Present: warm, radial pulses palpable and symmetrical. Absent : calf tenderness, cyanotic, pedal edema - Back Exam Additional comments: Paraspinal muscle tenderness lumbar spine chronic - Neurological Exam Neurological exam: Present: CN II-XII intact, oriented X3, no focal deficits. Absent: pronater drift, facial droop, speech deficit Internal Medicine: Result - Labs CBC & Chem 7: 09/04/17 04:18 09/04/17 04:18 Labs: Short CBC 09/04/17 Range/Units 04:18 WBC 11.4 H (4.3-11.1) K/mcL Hgb 15.0 (12.9-16.9) g/dL Hct 45.4 (37.5-50.1) % Plt Count 288 (140-400) K/mcL Neutrophils # 9.4 H (1.6-8.9) K/mcL BMP 09/04/17 04:18 Sodium 137 Potassium 3.6 Chloride 92 L Carbon Dioxide 34 H BUN 25 H Creatinine 1.19 Glucose 236 H Calcium 9.4 - ABG Interpretation ABG results: PT/INR, D-dimer PT 24.9 Seconds (9.4-12.1) H 09/04/17 04:18 - VTE Documentation of Mechanical Device: Intermittent pneumatic compression device Consult Discharge Plan - Plan Referrals: NONE,PCP [Primary Care Provider] -
--- NOTE | 2017-09-04 13:46 | Cardiology Consult Note ---
<KenzieJuan - Last Filed: 09/04/17 15:03> Date of Encounter: 09/04/17 Time of Encounter: 13:46 Assessment and Plan (1) Dyspnea Current Visit: Yes Status: Acute History of COPD , DVT/PE with frequent PNA recurrences. ID and Pulm have been consulted - Etiology more likely related to COPD and PNA. Patient had severe sepsis on presentation - BNP 63, Trop <0.03 - Currently requiring 3L via NC. Wheezing on exam - Most recent echo on 03/29/17 shows EF of 60-65% with indeterminate diastolic dysfunction. - I/O = -3L since admission. - Orthopnea, atiypical CP and LE swelling reported, however patient likely has DARIO and COPD Plan - Per Pulm note, plan for broncoscopy when INR wnl. - Patient would likely benefit from further ischemic workup when more medically stable as outpatient - Unlikely etiology of CHF given most recent echo, HPI. - Recommending stopping diuresis given rising Cr and management per pulm/ID. - Will discuss further plan with Dr. Garibay. Qualifiers: Dyspnea type: shortness of breath Qualified Code(s): R06.02 - Shortness of breath (2) Atypical chest pain Current Visit: Yes Status: Acute - Intermittent chronic chest pain located in substernal. Relieved with rest - Would benefit from outpatient cardiac ischemic workup - Recent echo in March 2017- as above. - Trop negative. -Changes in EKG likely secondary to lead placement. Findings do not represent patient's history. (3) Community acquired pneumonia Current Visit: Yes Status: Acute Per primary, pulm, ID teams Qualifiers: Laterality: right Lung location: lower lobe of lung Qualified Code(s): J18.1 - Lobar pneumonia, unspecified organism Discussion w patient/family: The assessment and plan as outlined above was discussed with the patient and/or family members who expressed understanding and agreement. All questions were answered. Thank you for involving us in the care of your patient. Please call with any questions. History of Present Illness Consult date: 09/04/17 Requesting physician: Nadine Mattson Consult reason: Abnormal EKG, diastolic HF Chief complaint: SOB History of present illness: Mr. Oliva is a 57 year old male with a past medical history of COPD, hypertension, DVT/PE with factor V Leiden deficiency and Holli filter, anxiety presented to emergency room with complaint of shortness of breath, fevers, chills. Patient has had multiple admissions in the past year for recurrent pneumonia. CT scan department showed groundglass opacities likely reflecting infection. He was admitted for severe sepsis secondary to pneumonia. Cardiology was consult at this time for possible ischemic workup including a history of heart failure with preserved ejection fraction, abnormal EKG. Most recent cardiac workup including echocardiogram on 03/29/17 showing ejection fraction of 6065% with indeterminant/mild diastolic dysfunction. Patient reports that his left heart catheterization around 2000 in [place] which he reports was normal. He also states he had a stress test proximally 5-6 years ago which was also normal at that time. Patient does state he has occasional symptoms of chest pain on exertion which is relieved with rest and located substernally. He also has chronic shortness of breath due to COPD but also states that he has associated orthopnea. He also has mild lower extremity edema right greater than left. Currently during interview, patient continues to have shortness of breath but denies any symptoms of chest pain, nausea, vomiting, diaphoresis. He states that he is anxious about what might be going on and that he wants to know what he can do to prevent recurrence of these pneumonias. EKG show sinus tachycardia with rate of 102, possible old anterior SC. Past Med Surg Social Fam HX - Past Medical History Medical history: COPD, hypertension Additional medical history: P, back/ shoulder pain Psychiatric history: anxiety - Past Surgical History Surgical History: non-contributory Additional surgical history: [place]ox[place] Filter - Social History Smoking Status: 2nd Hand Smoke Exposure Smokeless Tobacco Status: No Alcohol use: none Drug use: none - Family History Father Adopted: No Living Status: Hx Family Cardiac Disorders: Yes (Uncles, dad) Hx Family Respiratory Disorders: Yes Hx Family Cancer: Yes Hx Family GI Disorders: No Mother Adopted: No Hx Family Cancer: Yes (sibling,parents) Medications and Allergies Gabapentin [Neurontin] 300 mg PO TID 03/27/15 [History] Omeprazole [PriLOSEC] 40 mg PO DAILY@0630 #30 capsule 08/16/15 [Rx] DULoxetine [Cymbalta] 30 mg PO DAILY 02/27/17 [History] Albuterol Sulfate [Albuterol Inhaler] 2 puff IH Q4HR PRN #1 hfa.aer.ad 03/06/17 [Rx] Atorvastatin [Lipitor] 10 mg PO HS 03/23/17 [History] Lisinopril [Zestril] 20 mg PO DAILY 03/23/17 [History] Ipratropium/Albuterol Neb [Duoneb] 3 ml IH Q6H PRN 30 Days inhsol 03/31/17 [Rx] Levalbuterol Neb [Xopenex Neb] 1.25 mg IH [id number] PRN vial.neb 04/04/17 [Rx] Metoprolol [Lopressor] 12.5 mg PO BID tablet 04/04/17 [Rx] Tizanidine HCl [Zanaflex] 4 mg PO TID PRN #10 capsule 04/04/17 [Rx] Furosemide [Lasix] 40 mg PO BID #60 tablet 04/05/17 [Rx] ALPRAZolam [Xanax 1 MG Tablet] 1 mg PO BID 04/17/17 [History] Fluticasone/Salmeterol [Advair 250-50 Diskus] 1 puff IH BID 04/17/17 [History] Oxygen 2 l NS CONT 04/17/17 [History] Warfarin [Coumadin] 8 mg PO DAILY 08/30/17 [History] 3 Allergy/AdvReac Type Severity Reaction Status Date / Time No Known Allergies Allergy Verified 08/13/17 19:48 All Systems Review: The remainder of the systems were reviewed and are negative - Constitutional Constitutional: chills, fatigue, fever(s), no headache(s), no lethargy - Cardiovascular Cardiovascular: chest pain with exertion, dyspnea at rest, dyspnea on exertion, orthopnea, no chest pain at rest, no irregular heart rhythm, no lightheadedness , no palpitations, no paroxysmal nocturnal dyspnea - Respiratory Respiratory: cough, dyspnea, wheezing - Gastrointestinal Gastrointestinal: no abdominal pain, no diarrhea, no nausea - Neurological Neurological: no numbness, no syncope, no tingling - Psychiatric Psychiatric: anxiety Physical Examination Vital Signs, Last 4 Hours Temp Pulse Resp BP Pulse Ox 09/04/17 11:26 98.1 F 89 15 139/83 95 09/04/17 11:05 16 94 General: Conversant, No Apparent Distress HEENT: Atraumatic, Normocephaly, Mucus Membranes Moist Neck: No JVD, Normal carotid pulses Cardiac: Reg Rate and Rhythm, Normal S1 and S2, No Murmur Lungs: Other (Significant wheezing on auscultation, dry cough) Neuro: Alert and responsive, No focal deficits noted Abdomen: Soft, Non-Tender Skin: No rashes noted on visualized skin Musculoskeletal: No Chest Wall Tenderness Extremities: No Clubbing, No Cyanosis, Normal Pulses, Other (1+ pitting edema right greater than left) Results 09/04/17 04:18 09/04/17 04:18 Lab Results 09/04/17 09/04/17 09/04/17 04:18 04:18 04:18 WBC 11.4 H Hgb 15.0 Hct 45.4 Plt Count 288 INR 2.3 Sodium 137 Potassium 3.6 Chloride 92 L Carbon Dioxide 34 H BUN 25 H Creatinine 1.19 Glucose 236 H Calcium 9.4 Magnesium 2.3 Consult Discharge Plan - Plan Referrals: NONE,PCP [Primary Care Provider] - <Morelia Garibay - Last Filed: 09/04/17 16:33> Date of Encounter: 09/04/17 - Attending Attestation I examined this patient and my medical decision-making was reviewed with the Resident Physician. I agree with the documented findings, disposition and treatment plan except for recommendations below. Mr. Oliva presents with dyspnea secondary to frequent recurrences of pneumonia. Probably an element of diastolic dysfunction but symptoms largely attributed to COPD. On exam, he is very tight with limited air flow on pulmonary auscultation. Now with mild increase in BUN. Recommend returning to PO lasix. Otherwise, ECGs were reviewed. Present ECG demonstrates mild nonspecific ST changes in the lateral leads. The anterior leads are minimally different when compared to ECG from 02/2017. He describes sharp, short duration intermittent chest pains that are not new and atypical. His initial troponin is negative. Recommend continuing to cycle troponins. Check limited Echo. If troponin negative and LVEF without change from 03/2017, will likely recommend consideration for outpatient stress test evaluation. Assessment and Plan Discussion w patient/family: The assessment and plan as outlined above was discussed with the patient and/or family members who expressed understanding and agreement. All questions were answered. Thank you for involving us in the care of your patient. Please call with any questions. History of Present Illness History of present illness: Mr. Oliva is a 57 year old male All Systems Review: The remainder of the systems were reviewed and are negative Physical Examination Vital Signs, Last 4 Hours Temp Pulse Resp BP Pulse Ox 09/04/17 16:09 97.8 F 90 16 122/67 96 09/04/17 16:06 16 93 Results 09/04/17 04:18 09/04/17 04:18 Lab Results 09/04/17 09/04/17 09/04/17 04:18 04:18 04:18 WBC 11.4 H Hgb 15.0 Hct 45.4 Plt Count 288 INR 2.3 Sodium 137 Potassium 3.6 Chloride 92 L Carbon Dioxide 34 H BUN 25 H Creatinine 1.19 Glucose 236 H Calcium 9.4 Magnesium 2.3
[2017-09-04] MEDS: Tiotropium 18 MCG inhalation IH SCH (16:06)
[2017-09-04] MEDS: Albuterol 2.5 MG/3 ML NEBULIZER IH SCH ×4 (16:06→23:35)
[2017-09-04] MEDS ORDERED: Perflutren Lipid Microsphere 1.3 ML in 0.9 % Sodium Chloride 8.7 ML IVP ONE (19:36)
--- NOTE | 2017-09-04 19:43 | Infectious Disease Consult ---
Date of Encounter: 09/04/17 Time of Encounter: 19:39 Assessment and Plan (1) Sepsis Status: Acute Assessment and plan: Had 3 SIRS criteria on admission Likely secondary to pneumonia Qualifiers: Sepsis type: sepsis due to unspecified organism Qualified Code(s): A41.9 - Sepsis, unspecified organism (2) HCAP (healthcare-associated pneumonia) Status: Acute Assessment and plan: Causative organism not clear. CT of the chest reviewed Respiratory infection panel did not detect any viruses Sputum culture was contaminated with over 25 epithelial cells per low power field Blood cultures no growth to date Urine legionella and pneumococcal antigen not ordered In March patient had a viral pneumonia with influenza type a Patient currently is on Zosyn and azithromycin. Repeat chest x-ray today shows progression of the right basilar airspace disease with new small right-sided pleural effusion Check urine legionella and pneumococcal antigen May consider repeating a CT chest Appreciate pulmonary's recommendation, Bo start empiric vancomycin tomorrow if clinically not improved. Monitor labs and for drug toxicity (3) Poor dentition Status: Acute Assessment and plan: Patient tells me that his teeth are breaking off and 6 months ago his tooth was aching so he tried to remove it himself with the pliers and it shattered. Might need a Panorex or jaw x-ray to make sure there is no dental abscess (4) [place] filter in place Status: Chronic (5) Obesity (BMI 30-39.9) Status: Chronic (6) Acute respiratory failure with hypoxia Status: Acute (7) Supratherapeutic INR Status: Acute (8) Recurrent pneumonia Status: Acute (9) Factor V Leiden Status: Acute Infectious Disease HPI - Data of Consult Patient: new to practice Consult date: 09/04/17 Requesting Physician: Wolfgang Romano Primary Care Provider: PCP NONE - Consult Narrative Reason for consult: Pneumonia History of present illness: Mr. Oliva is a 57 year old male Patient is a 57-year-old gentleman who has an extensive past medical history mentioned below was admitted to [facility] on August 30 for pneumonia, we are consulted today on September 04 for antibiotic recommendations. Patient with past medical history mentioned below including factor V laden with multiple DVTs and PE in the past who had a [place] filter placed 10 years ago. Apparently patient has been having problems with the [place] filter and it broke and he was trying to find out from his vascular surgeon if it can be retrieved it. The patient lives in [place] with his and children and grandchildren and a 2 or 3 great grandchildren. Apparently has no animals at home. 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 Patient quit smoking 5 years ago. Patient requires home O2 nasal cannula at 3 L usually. He states a few days prior to admission started having worsening cough with hemoptysis and he was having shortness of breath and pleuritic chest pain and dyspnea on exertion. Patient also was having chills on the day before admission he had fevers so he decided to come to the emergency department for evaluation. Patient denies any sick contacts. She tells me the cough is so hacking and makes him lightheaded and having near syncopal episodes. Since admission, patient was initially febrile with a MAXIMUM TEMPERATURE of 11.2. He was tachycardic initially with a heart rate of 110 and he was to Take with the 28 breaths per minute. Presenting WBC was 15.7 with normal differential. Neutrophil count was 68.5% and no bands. Patient was also on Coumadin toxicity with an INR 4.6. Patient had a nasal screen for MRSA came back negative. Patient also had the respiratory infectious panel done on September 03 which did not detect anything. A urinalysis on admission was negative. Patient had a CT chest which revealed patchy groundglass and nodular opacities in the peribronchial vascular distribution involving the right lung. Findings are most compatible with infection. Patient has received multiple antibiotics without was on vancomycin and Zosyn most recently and azithromycin was added. We were asked to evaluate the patient and make further recommendations. Currently patient tells me that he initially started feeling better since he came in that now the cough is worse again. Patient denies anymore hemoptysis. CC: Wolfgang Romano Past Med Surg Social Fam HX - Past Medical History Medical history: COPD, hypertension Additional medical history: P, back/ shoulder pain Psychiatric history: anxiety - Past Surgical History Surgical History: non-contributory Additional surgical history: [place] Filter - Social History Smoking Status: 2nd Hand Smoke Exposure Smokeless Tobacco Status: No Alcohol use: none Drug use: none - Family History Father Adopted: No Living Status: Hx Family Cardiac Disorders: Yes (Uncles, dad) Hx Family Respiratory Disorders: Yes Hx Family Cancer: Yes Hx Family GI Disorders: No Mother Adopted: No Hx Family Cancer: Yes (sibling,parents) Infectious Disease-CN:Meds Gabapentin [Neurontin] 300 mg PO TID 03/27/15 [History] Omeprazole [PriLOSEC] 40 mg PO DAILY@0630 #30 capsule 08/16/15 [Rx] DULoxetine [Cymbalta] 30 mg PO DAILY 02/27/17 [History] Albuterol Sulfate [Albuterol Inhaler] 2 puff IH Q4HR PRN #1 hfa.aer.ad 03/06/17 [Rx] Atorvastatin [Lipitor] 10 mg PO HS 03/23/17 [History] Lisinopril [Zestril] 20 mg PO DAILY 03/23/17 [History] Ipratropium/Albuterol Neb [Duoneb] 3 ml IH Q6H PRN 30 Days inhsol 03/31/17 [Rx] Levalbuterol Neb [Xopenex Neb] 1.25 mg IH [id number] PRN vial.neb 04/04/17 [Rx] Metoprolol [Lopressor] 12.5 mg PO BID tablet 04/04/17 [Rx] Tizanidine HCl [Zanaflex] 4 mg PO TID PRN #10 capsule 04/04/17 [Rx] Furosemide [Lasix] 40 mg PO BID #60 tablet 04/05/17 [Rx] ALPRAZolam [Xanax 1 MG Tablet] 1 mg PO BID 04/17/17 [History] Fluticasone/Salmeterol [Advair 250-50 Diskus] 1 puff IH BID 04/17/17 [History] Oxygen 2 l NS CONT 04/17/17 [History] Warfarin [Coumadin] 8 mg PO DAILY 08/30/17 [History] 3 Allergy/AdvReac Type Severity Reaction Status Date / Time No Known Allergies Allergy Verified 08/13/17 19:48 Review of systems: 10 point review of systems done, negative other for what mentioned in history of present illness Exam - Constitutional Vitals: Temp Pulse Resp BP Pulse Ox 97.8 F 90 16 122/67 96 09/04/17 16:09 09/04/17 16:09 09/04/17 16:09 09/04/17 16:09 09/04/17 16:09 General appearance: disheveled, mild distress, no febrile - Head Head exam: Present: atraumatic, normocephalic - Eye Eye exam: Present: EOMI, PERRL, sclera anicteric - ENT ENT exam: Present: mucous membranes dry Additional comments: No oral lesions noted - Neck Neck exam: Present: full ROM - Respiratory Additional comments: Inspiratory and expiratory wheezes. Chest expanding symmetrically. Diminished breath sounds universally. - Cardiovascular Cardiovascular exam: Present: RRR, +S1, +S2. Absent: systolic murmur - GI/Abdominal GI/Abdominal exam: Present: normal bowel sounds, soft, tenderness - Extremities Exam Extremities exam: Present: normal inspection, pedal edema - Neurological Exam Neurological exam: Present: alert, oriented X3. Absent: speech deficit - Psychiatric Psychiatric exam: Present: normal affect, normal mood - Skin Skin exam: Present: normal color Additional comments: Little bruising likely due to Coumadin on the upper extremities Infectious Disease CN: Results - Labs CBC & Chem 7: 09/04/17 04:18 09/04/17 04:18 Cultures: Cultures 08/31/17 19:33 Sputum Culture - Final Sputum Serology: Serology 09/03/17 09/01/17 Range/Units 15:58 13:20 Nasal Screen MRSA (PCR) Negative (Negative) Chlamy pneumoniae PCR Not Detected (Not Detect) Adenovirus (PCR) Not Detected (Not Detect) B. pertussis DNA (PCR) Not Detected (Not Detect) B.parapertussis DNA PCR Not Detected (Not Detect) Coronavirus OC43 (PCR) Not Detected (Not Detect) Coronavirus HKU1 (PCR) Not Detected (Not Detect) Coronavirus 229E (PCR) Not Detected (Not Detect) Coronavirus NL63 (PCR) Not Detected (Not Detect) Human Metapneumovir PCR Not Detected (Not Detect) Influenza A (H1) PCR Not Detected (Not Detect) Influ A (H1N1/09) PCR Not Detected (Not Detect) Influenza A (H3) PCR Not Detected (Not Detect) Influenza A Untype (PCR) Not Detected (Not Detect) Influenza Type B (PCR) Not Detected (Not Detect) M.pneumoniae DNA (PCR) Not Detected (Not Detect) Parainfluenza 1 (PCR) Not Detected (Not Detect) Parainfluenza 2 (PCR) Not Detected (Not Detect) Parainfluenza 3 (PCR) Not Detected (Not Detect) Parainfluenza 4 (PCR) Not Detected (Not Detect) RSV (PCR) Not Detected (Not Detect) Entero/Rhino (PCR) Not Detected (Not Detect) - VTE Documentation of Mechanical Device: Intermittent pneumatic compression device Consult Discharge Plan - Plan Referrals: NONE,PCP [Primary Care Provider] -
[2017-09-05] MEDS: ALPRAZolam 1 MG TABLET PO PRN ×2 (01:18→09:08)
[2017-09-05] MEDS: GuaiFENesin Liq 200 MG/10 ML UDC PO PRN ×3 (01:18→17:22)
[2017-09-05] MEDS: tiZANidine 4 MG TABLET PO PRN ×2 (01:18→09:07)
[2017-09-05] MEDS: Piperacillin/Tazobactam 3.375 GM in 0.9 % Sodium Chloride Mini Bag 100 ML IVPB SCH ×3 (01:22→16:14)
[2017-09-05] MEDS: MethylPREDNISolone 40 MG/ML VIAL IVP SCH ×2 (01:23→08:30)
[2017-09-05] MEDS: Albuterol 2.5 MG/3 ML NEBULIZER IH SCH ×5 (03:59→20:26)
[2017-09-05] MEDS: *HR* Enoxaparin 150 MG/ML SYRINGE SQ SCH ×3 (05:43→17:22)
[2017-09-05 06:10] LABS: Basophils % 0.2 %; Hematocrit 45.2 % (37.5-50.1); Hemoglobin 14.9 g/dL (12.9-16.9); Immature Granulocytes % 2.1 % (0-4); Lymphocytes # 0.8 K/mcL (0.6-4.6); Lymphocytes % 7.3 %; Mean Corpuscular Hemoglobin 28.8 pg (28.0-33.3); Mean Corpuscular Volume 87.3 fL (83.0-100.0); Monocytes # 0.9 K/mcL (0.0-1.3); Monocytes % 8.3 %; Neutrophils # 8.8 K/mcL (1.6-8.9); Platelet Count 276 K/mcL (140-400); Red Blood Count 5.18 M/mcL (4.19-5.50); Red Cell Distribution Width 13.3 % (11.5-14.5); Segmented Neutrophils % 82.1 %
[2017-09-05 06:18] LABS: Prothrombin Time 22.4 Seconds (9.4-12.1)
[2017-09-05 06:42] LABS: BUN/Creatinine Ratio 29 (6-26); Blood Urea Nitrogen 35 mg/dL (6-20); Calcium 9.3 mg/dL (8.6-10.3); Carbon Dioxide 41 mEq/L (23-29); Chloride 85 mEq/L (98-107); Glucose 193 mg/dL (70-105); Osmolality,Calculated 297 (280-300); Potassium 2.9 mEq/L (3.5-5.1); Sodium 137 mEq/L (136-145); eGFR For African Americans > 60 (> 60); eGFR For Non-African Americans > 60 (> 60)
[2017-09-05] MEDS: Insulin LISPRO 300 UNITS/3 ML VIAL SQ SCH ×3 (07:12→16:13)
[2017-09-05] MEDS: Tiotropium 18 MCG inhalation IH SCH (07:35)
--- NOTE | 2017-09-05 08:21 | Pulmonology Progress Note ---
<Luis Carlos Romano - Last Filed: 09/05/17 13:04> Date of Encounter: 09/05/17 Time of Encounter: 09:30 Assessment and Plan (1) Recurrent pneumonia Current Visit: Yes Status: Acute History of 3 episodes of PNA since February 2017 and [address] to current one, ground glass opacities were evident in the R middle and lower lobe, whereas now it is in the R upper lobe. No anatomic abnormalities were appreciated. Given the location of the opacity in the RUL and his reports of hemoptiysis and night sweats, TB was initially a consideration. However patient denies coming into contact with anyone having TB, no exposure in daily life, no recent weight loss, no clubbing, no erythema nodosum, an no history of DM, it makes the diagnosis unlikely. Upon inspection of the patient's oropharynx , it was evident that he had very poor dental hygeine and given that he is normally on an inhaled corticosteroid for his COPD, his recurrent PNA can be due to infection from colonization of pathogenic bacteria in the oropharynx. Patient is currently on day 6 of zosyn and day 4 of azithromycin. A bronchoscopy in indicated this case due to patient's recurrent PNA, however since he is on warfarin at home for his history of blood clots and Factor V disorder, patient was switched from his warfarin yesterday to lovenox. His INR has dropped from 2.3 to 2.0 since yesterday. ID was consulted. Recommend urine legionella and pneumococcal antigen test. Blood cultures shows no growth on 08/30/17. Sputum culture did not meet culture criteria. - Continue Spiriva and scheduled albuterol. - Stop lovenox at midnight. - NPO at midnight. - Plan for bronchoscopy in the AM. - Recheck INR in the AM. - Continue zosyn and azithromycin. - Recheck INR in the AM. (2) COPD exacerbation Current Visit: No Status: Acute Patient at 90% O2 on RA. Quit smoking 4-5 years ago. 25-50 pack year. Normally on oxygen at home. Currently on duonebs and symbicort. On methylprednisone 80 mg day 5. - Patient will need to be put back on [place] oxygen. - Continue Spiriva and albuterol. - Continue IV steroids. (3) CHF (congestive heart failure) Current Visit: Yes Status: Acute ast echo on 03/29/17 shows an LVEF of 60-65% with no significant valvular dysfunction. Fluid balance of - 610. Adequate urine output at 0.5 cc/kg/hour. Weight of 220 kg yesterday to 217 kg. No signs of edema on exam. Creatinine continues to increase from 1.19 up to 1.21 (baseline 0.94-1.0). - Recommend decreasing lasix 40 IV from TID to BID. Qualifiers: Heart failure type: diastolic Heart failure chronicity: chronic Qualified Code(s): I50.32 - Chronic diastolic (congestive) heart failure (4) Factor V Leiden Current Visit: Yes Status: Acute Takes warfarin at home. Current INR at 2.0. Warfarin on hold and switched to lovenox. - Hold lovenox at midnight in anticipation of bronchoscopy tomorrow. (5) History of pulmonary embolism Current Visit: No Status: Chronic [place] IVC filter in place. - See plan above. (6) DVT prophylaxis Current Visit: No Status: Acute On lovenox. Will hold at midnight for procedure tomorrow. Subjective Principal diagnosis: Sprain left foot Interval history: When seen today, patient says that he feels worse than yesterday. He says he is coughing more, but says he is still unable to produce any sputum. Denies any hemoptysis. He admits to increase in sore throat. Admits to increased chest congestion. Increase in SOB and wheezing. Admits to orthopnea. Denies any nausea. Admits to one episode of vomiting. Denies any hematemesis. Denies any abdominal pain. Denies any fever or chills. Objective PUL Vital signs: Last Vital Signs Temp 98.2 F 09/05/17 06:40 Pulse 82 09/05/17 06:40 Resp 18 09/05/17 06:40 BP 111/71 09/05/17 06:40 Pulse Ox 90 09/05/17 06:40 General appearance: no acute distress Eyes: nonicteric ENT: oropharynx moist Neck: supple Auscultation: bilateral: wheezes, rhonchi Cardiovascular: regular rate and rhythm Gastrointestinal: hypoactive bowel sounds, soft, non-tender, non-distended Integumentary: normal Extremities: no cyanosis, no edema, no clubbing, pulses normal, no ischemia or petechiae, other (Orthotic boot on L foot) Musculoskeletal: no deformities normal mental status mood appropriate, affect normal Results - Laboratory Findings CBC and BMP: 09/05/17 04:00 09/05/17 04:00 PT/INR, D-dimer PT 22.4 Seconds (9.4-12.1) H 09/05/17 04:00 Abnormal lab findings: Abnormal lab results MPV 9.0 fL (9.4-12.4) L 09/05/17 04:00 PT 22.4 Seconds (9.4-12.1) H 09/05/17 04:00 Potassium 2.9 mEq/L (3.5-5.1) L 09/05/17 04:00 Chloride 85 mEq/L (98-107) L 09/05/17 04:00 Carbon Dioxide 41 mEq/L (23-29) H* 09/05/17 04:00 BUN 35 mg/dL (6-20) H 09/05/17 04:00 BUN/Creatinine Ratio 29 (6-26) H 09/05/17 04:00 Glucose 193 mg/dL (70-105) H 09/05/17 04:00 POC Glucose 185 mg/dL (70-99) H 09/05/17 06:43 Prealbumin 44.4 mg/dL (17.0-34.0) H 09/04/17 04:18 Vancomycin Trough 17 mcg/mL (5-10) H 09/02/17 09:20 - Clinical Findings Intake & Output: Intake & Output 09/04/17 09/05/17 09/05/17 23:59 07:59 15:59 Intake Total 340 / 340 Balance 340 / 340 Weight 129 kg - VTE Documentation of Mechanical Device: Intermittent pneumatic compression device Consult Discharge Plan - Plan Referrals: NONE,PCP [Primary Care Provider] - <Diandra Chavis - Last Filed: 09/05/17 16:47> Date of Encounter: 09/05/17 Objective PUL Vital signs: Last Vital Signs Temp 98.3 F 09/05/17 15:25 Pulse 94 09/05/17 15:25 Resp 18 09/05/17 15:25 BP 123/71 09/05/17 15:25 Pulse Ox 94 09/05/17 15:25 Results - Laboratory Findings CBC and BMP: 09/05/17 04:00 09/05/17 04:00 PT/INR, D-dimer PT 22.4 Seconds (9.4-12.1) H 09/05/17 04:00 Abnormal lab findings: Abnormal lab results MPV 9.0 fL (9.4-12.4) L 09/05/17 04:00 PT 22.4 Seconds (9.4-12.1) H 09/05/17 04:00 Potassium 2.9 mEq/L (3.5-5.1) L 09/05/17 04:00 Chloride 85 mEq/L (98-107) L 09/05/17 04:00 Carbon Dioxide 41 mEq/L (23-29) H* 09/05/17 04:00 BUN 35 mg/dL (6-20) H 09/05/17 04:00 BUN/Creatinine Ratio 29 (6-26) H 09/05/17 04:00 Glucose 193 mg/dL (70-105) H 09/05/17 04:00 POC Glucose 185 mg/dL (70-99) H 09/05/17 06:43 Prealbumin 44.4 mg/dL (17.0-34.0) H 09/04/17 04:18 Vancomycin Trough 17 mcg/mL (5-10) H 09/02/17 09:20 - Microbiology Findings Microbiology Findings: Microbiology, Last 48 Hours 09/05/17 15:33 Legionella Antigen - Final Urine,Clean Catch Streptococcus pneumoniae Antigen (M - Final - Clinical Findings Intake & Output: Intake & Output 09/05/17 09/05/17 09/05/17 07:59 15:59 23:59 Intake Total 100 / 100 580 / 580 Output Total 1100 / 1100 Balance 100 / 100 -520 / -520 - Attending Attestation I examined this patient and my medical decision-making was reviewed with the Resident Physician. I agree with the documented findings, disposition and treatment plan as described except to the extent set forth below. Patient seen and examined. Labs, radiology, chart personally reviewed. Agree with resident's history and physical, assessment, plan with following comments: PLUGGER MAN: Patient follows commands, Pulmonary: Patient with recurrent pneumonia and plan for bronchoscopy tomorrow. Patient understand all the risks, alternative, benefits of the procedure.
[2017-09-05] MEDS: Lisinopril 20 MG TABLET PO SCH (08:30)
[2017-09-05] MEDS: Furosemide 40 MG/4 ML VIAL IVP SCH (08:30)
[2017-09-05] MEDS: Gabapentin 300 MG CAPSULE PO SCH ×3 (08:30→22:50)
[2017-09-05] MEDS: Azithromycin 250 MG TABLET PO SCH (08:30)
--- NOTE | 2017-09-05 09:30 | Cardiology Progress Note ---
<Juan Espino - Last Filed: 09/05/17 10:26> Date of Encounter: 09/05/17 Time of Encounter: 09:28 Assessment and Plan (1) Dyspnea Current Visit: Yes Status: Acute History of COPD , DVT/PE with frequent PNA recurrences. ID and Pulm have been consulted - Etiology more likely related to COPD and PNA. Patient had severe sepsis on presentation - BNP 63, Trop <0.03 - Currently tolerating room air. Wheezing on exam - Most recent echo on 03/29/17 shows EF of 60-65% with indeterminate diastolic dysfunction. Repeat echo pending. - I/O = -2.7L since admission. - Orthopnea, atiypical CP and LE swelling reported, however patient likely has DARIO and COPD Plan - Further recommendations per pending echocardiogram. Likely has some element of diastolic dysfunction, however dyspnea is more likely related to pulmonary disease - Per Pulm note, plan for broncoscopy when INR wnl. - Patient would likely benefit from further ischemic workup when more medically stable as outpatient if echo is unchanged. - Unlikely etiology of CHF given most recent echo, HPI. - Recommending transitioning to oral diuresis given rising BUN and HCO3 and management per pulm/ID. - Will discuss further plan with Dr. Garibay. Qualifiers: Dyspnea type: shortness of breath Qualified Code(s): R06.02 - Shortness of breath; R06.00 - Dyspnea, unspecified; R06.01 - Orthopnea (2) Atypical chest pain Current Visit: Yes Status: Acute - Intermittent chronic chest pain located in substernal. Relieved with rest - Would benefit from outpatient cardiac ischemic workup - Recent echo in March 2017, repeat pending read - Trop negative. - Has some mild CAD seen on CTA on admission. -Changes in EKG likely secondary to lead placement. Findings do not represent patient's history. (3) Community acquired pneumonia Current Visit: Yes Status: Acute Per primary, pulm, ID teams Qualifiers: Laterality: right Lung location: lower lobe of lung Qualified Code(s): J18.1 - Lobar pneumonia, unspecified organism Discussion w patient/family: The assessment and plan as outlined above was discussed with the patient and/or family members who expressed understanding and agreement. All questions were answered. Thank you for involving us in the care of your patient. Please call with any questions. Subjective Principal diagnosis: PNA, COPD Interval history: Patient seen and examined at bedside this morning. He states that overall he feels mildly worse compared to yesterday. Still has complaints of shortness of breath, nonproductive cough, wheezing. Continues to deny any complaints of chest pain, lower extremity swelling. He has been evaluated by infectious disease and pulmonology who plan to go ahead with bronchoscopy however his INR remains elevated at 2.0 this morning. Objective Vital Signs, Last 4 Hours Temp Pulse Resp BP Pulse Ox 09/05/17 08:49 90 09/05/17 06:40 98.2 F 82 18 111/71 90 General: Conversant, No Apparent Distress HEENT: Atraumatic, Normocephaly, Mucus Membranes Moist Neck: No JVD, Normal carotid pulses Cardiac: Reg Rate and Rhythm, Normal S1 and S2, No Murmur Lungs: Other (Moderate diffuse wheezing) Neuro: Alert and responsive, No focal deficits noted Abdomen: Soft, Non-Tender Skin: No rashes noted on visualized skin Musculoskeletal: No Chest Wall Tenderness Extremities: No Clubbing, No Cyanosis, No Edema, Normal Pulses Results 09/05/17 04:00 09/05/17 04:00 Lab Results 09/04/17 09/05/17 09/05/17 16:15 04:00 04:00 WBC 10.7 Hgb 14.9 Hct 45.2 Plt Count 276 INR 2.0 Sodium Potassium Chloride Carbon Dioxide BUN Creatinine Glucose Calcium Troponin I < 0.03 09/05/17 04:00 WBC Hgb Hct Plt Count INR Sodium 137 Potassium 2.9 L Chloride 85 L Carbon Dioxide 41 H* BUN 35 H Creatinine 1.21 Glucose 193 H Calcium 9.3 Troponin I - VTE Documentation of Mechanical Device: Intermittent pneumatic compression device Consult Discharge Plan - Plan Referrals: NONE,PCP [Primary Care Provider] - <Morelia Garibay - Last Filed: 09/05/17 11:58> Date of Encounter: 09/05/17 Assessment and Plan Discussion w patient/family: I examined this patient and my medical decision-making was reviewed with the Resident Physician. I agree with the documented findings, disposition and treatment plan. Mr. Oliva has no new complaints today. Intermittent chest pains appear atypical - troponin negative, echo demonstrates normal LVEF. Can consider outpatient stress testing. Continue statin. Consider addition of low dose aspirin. Dyspnea largely attributed to a pulmonary component although he likely has diastolic dysfunction. Recommend stopping IV lasix and restarting oral home medication. Initially diuresed but renal function continues to decline and he has hypokalemia. Will sign off. Please call with questions. Objective Vital Signs, Last 4 Hours Temp Pulse Resp BP Pulse Ox 09/05/17 10:46 98 F 79 20 104/65 93 09/05/17 08:49 90 Results 09/05/17 04:00 09/05/17 04:00 Lab Results 09/04/17 09/05/17 09/05/17 16:15 04:00 04:00 WBC 10.7 Hgb 14.9 Hct 45.2 Plt Count 276 INR 2.0 Sodium Potassium Chloride Carbon Dioxide BUN Creatinine Glucose Calcium Troponin I < 0.03 09/05/17 04:00 WBC Hgb Hct Plt Count INR Sodium 137 Potassium 2.9 L Chloride 85 L Carbon Dioxide 41 H* BUN 35 H Creatinine 1.21 Glucose 193 H Calcium 9.3 Troponin I
[2017-09-05] MEDS ORDERED: *HR* Nalbuphine 10 MG/ML AMPUL IV PRN (11:55)
[2017-09-05] MEDS ORDERED: Isovue-370 500 ML INFUS..BTL IV ONE (12:06)
--- NOTE | 2017-09-05 12:32 | Infectious Disease Progress No ---
Date of Encounter: 09/05/17 Time of Encounter: 12:30 - Assessment and Plan (1) Sepsis Current Visit: Yes Status: Acute Had 3 SIRS criteria on admission Likely secondary to pneumonia Qualifiers: Sepsis type: sepsis due to unspecified organism Qualified Code(s): A41.9 - Sepsis, unspecified organism (2) HCAP (healthcare-associated pneumonia) Current Visit: No Status: Acute Causative organism not clear. CT of the chest reviewed Respiratory infection panel did not detect any viruses Sputum culture was contaminated with over 25 epithelial cells per low power field Blood cultures no growth to date Urine legionella and pneumococcal antigen not ordered In March patient had a viral pneumonia with influenza type a Patient currently is on Zosyn and azithromycin. Repeat chest x-ray today shows progression of the right basilar airspace disease with new small right-sided pleural effusion Check urine legionella and pneumococcal antigen May consider repeating a CT chest Appreciate pulmonary's recommendation, Bo start empiric vancomycin tomorrow if clinically not improved. Monitor labs and for drug toxicity (3) Poor dentition Current Visit: Yes Status: Acute Patient tells me that his teeth are breaking off and 6 months ago his tooth was aching so he tried to remove it himself with the pliers and it shattered. Might need a Panorex or jaw x-ray to make sure there is no dental abscess (4) [place] filter in place Current Visit: No Status: Chronic (5) Obesity (BMI 30-39.9) Current Visit: No Status: Chronic (6) Acute respiratory failure with hypoxia Current Visit: No Status: Acute (7) Supratherapeutic INR Current Visit: Yes Status: Acute (8) Recurrent pneumonia Current Visit: Yes Status: Acute (9) Factor V Leiden Current Visit: Yes Status: Acute - Subjective Interval history: Patient seen and examined. Continues to be short of breath. He states he does not really feel much better. Continues to have dyspnea on exertion. He is not having much cough or sputum production. Denies any chest pain. No abdominal pain. No diarrhea. No urinary symptoms. In the last 24 hours: Patient has been afebrile and had no tachycardia. O2 sats in the 90s on room air Labs today WBC is 10.7 potassium 2.9 carbon dioxide 41 Antibiotics: Continues to take azithromycin and Zosyn No new cultures No new cultures CT abdomen and pelvis reviewed Infect Dis PN-Objective Data - Labs CBC & Chem 7: 09/05/17 04:00 09/05/17 04:00 Labs: Laboratory Results - last 24 hr 09/04/17 09/04/17 09/04/17 07:01 11:30 16:10 WBC RBC Hgb Hct MCV MCH MCHC RDW Plt Count MPV Immature Gran % Seg Neutrophils % Lymphocytes % Monocytes % Eosinophils % Basophils % Neutrophils # Lymphocytes # Monocytes # Eosinophils # Basophils # PT INR Sodium Potassium Chloride Carbon Dioxide BUN Creatinine Est GFR ( Amer) Est GFR (Non-Af Amer) BUN/Creatinine Ratio Glucose POC Glucose 160 H 241 H 138 H Calculated Osmolality Calcium Troponin I 09/04/17 09/04/17 09/05/17 16:15 19:45 04:00 WBC RBC Hgb Hct MCV MCH MCHC RDW Plt Count MPV Immature Gran % Seg Neutrophils % Lymphocytes % Monocytes % Eosinophils % Basophils % Neutrophils # Lymphocytes # Monocytes # Eosinophils # Basophils # PT 22.4 H INR 2.0 Sodium Potassium Chloride Carbon Dioxide BUN Creatinine Est GFR ( Amer) Est GFR (Non-Af Amer) BUN/Creatinine Ratio Glucose POC Glucose 220 H Calculated Osmolality Calcium Troponin I < 0.03 09/05/17 09/05/17 09/05/17 04:00 04:00 06:43 WBC 10.7 RBC 5.18 Hgb 14.9 Hct 45.2 MCV 87.3 MCH 28.8 MCHC 33.0 RDW 13.3 Plt Count 276 MPV 9.0 L Immature Gran % 2.1 Seg Neutrophils % 82.1 Lymphocytes % 7.3 Monocytes % 8.3 Eosinophils % 0.0 Basophils % 0.2 Neutrophils # 8.8 Lymphocytes # 0.8 Monocytes # 0.9 Eosinophils # 0.0 Basophils # 0.0 PT INR Sodium 137 Potassium 2.9 L Chloride 85 L Carbon Dioxide 41 H* BUN 35 H Creatinine 1.21 Est GFR ( Amer) > 60 Est GFR (Non-Af Amer) > 60 BUN/Creatinine Ratio 29 H Glucose 193 H POC Glucose 185 H Calculated Osmolality 297 Calcium 9.3 Troponin I Cultures: Cultures 08/31/17 19:33 Sputum Culture - Final Sputum Serology 09/03/17 09/01/17 Range/Units 15:58 13:20 Nasal Screen MRSA (PCR) Negative (Negative) Chlamy pneumoniae PCR Not Detected (Not Detect) Adenovirus (PCR) Not Detected (Not Detect) B. pertussis DNA (PCR) Not Detected (Not Detect) B.parapertussis DNA PCR Not Detected (Not Detect) Coronavirus OC43 (PCR) Not Detected (Not Detect) Coronavirus HKU1 (PCR) Not Detected (Not Detect) Coronavirus 229E (PCR) Not Detected (Not Detect) Coronavirus NL63 (PCR) Not Detected (Not Detect) Human Metapneumovir PCR Not Detected (Not Detect) Influenza A (H1) PCR Not Detected (Not Detect) Influ A (H1N1/09) PCR Not Detected (Not Detect) Influenza A (H3) PCR Not Detected (Not Detect) Influenza A Untype (PCR) Not Detected (Not Detect) Influenza Type B (PCR) Not Detected (Not Detect) M.pneumoniae DNA (PCR) Not Detected (Not Detect) Parainfluenza 1 (PCR) Not Detected (Not Detect) Parainfluenza 2 (PCR) Not Detected (Not Detect) Parainfluenza 3 (PCR) Not Detected (Not Detect) Parainfluenza 4 (PCR) Not Detected (Not Detect) RSV (PCR) Not Detected (Not Detect) Entero/Rhino (PCR) Not Detected (Not Detect) - Impressions Impressions Chest X-Ray 09/04/17 06:50 IMPRESSION: Progression of right basilar airspace disease with new small right-sided pleural effusion. This is concerning for pneumonia with parapneumonic effusion. Follow-up radiographs recommended to ensure resolution. D/ / Flako Nino MD / Flako Nino MD Interpreting Provider: Flako Nino MD Echocardiogram Limited Views 09/04/17 16:33 Impressions: LVEF 70%. Normal LV chamber size, wall thickness and function. Left Ventricular Wall Motion: Rest Echo Findings All wall segments showed normal motion. Findings: Study Quality * Technically adequate exam. ECG Findings * Normal sinus rhythm. Left Ventricle * LVEF 70%. * Normal LV chamber size, wall thickness and function. Right Ventricle * Normal right ventricular structure and function. Exam - Constitutional Vitals: Temp Pulse Resp BP Pulse Ox 98 F 79 20 104/65 93 09/05/17 10:46 09/05/17 10:46 09/05/17 10:46 09/05/17 10:46 09/05/17 10:46 General appearance: mild distress, no febrile - Respiratory Additional comments: Decreased breath sounds universally was some expiratory wheezing. Appreciate any rhonchi or rales - Cardiovascular Cardiovascular exam: Present: RRR, +S1, +S2 - GI/Abdominal GI/Abdominal exam: Present: normal bowel sounds, soft. Absent: tenderness - VTE Documentation of Mechanical Device: Intermittent pneumatic compression device Consult Discharge Plan - Plan Referrals: NONE,PCP [Primary Care Provider] -
[2017-09-05] MEDS: *HR* OxyCODONE Immed Rel 5 MG TABLET PO PRN ×2 (13:05→22:51)
[2017-09-05] MEDS ORDERED: Potassium Chloride Elixir 20 MEQ/15 ML UDC PO ONE (14:45)
[2017-09-05] MEDS: Furosemide 40 MG TABLET PO SCH (16:13)
--- NOTE | 2017-09-05 20:51 | Internal Med Progress Note ---
Date of Encounter: 09/08/17 Time of Encounter: 20:51 - Assessment and plan (1) HCAP (healthcare-associated pneumonia) Current Visit: No Status: Acute Assessment and plan: See notes from infectious diseases. We will continue IV vancomycin, IV Zosyn and IV Zithromax. The patient will have bronchoscopy tomorrow. (2) COPD exacerbation Current Visit: No Status: Acute Assessment and plan: We will continue antibiotics, as mentioned above. We will continue Spiriva. He gets when necessary Tessalon for excessive coughing. (3) Sepsis Current Visit: Yes Status: Acute Assessment and plan: It is likely due to pneumonia. See above. Qualifiers: Sepsis type: sepsis due to unspecified organism Qualified Code(s): A41.9 - Sepsis, unspecified organism (4) Abdominal pain Current Visit: Yes Status: Acute Assessment and plan: He has had progressing abdominal pain for about 710 days. It is diffuse. Will check his CT of her abdomen with IV contrast. Qualifiers: Abdominal location: generalized Qualified Code(s): R10.84 - Generalized abdominal pain (5) Factor V Leiden Current Visit: Yes Status: Acute Assessment and plan: His Coumadin is on hold. He is getting ready for bronchoscopy. We will keep him on bridging Lovenox. - Time Spent With Patient Total time spent is greater than 50% in coordination of care (as documented) at patient's floor/unit and/or counseling patient: - Subjective Interval history: The patient continues to have quite a bit of coughing. It is occasionally associated with wheezing. Denies chest pain. He uses supplemental oxygen at 3 L/min. Denies abdominal pain, nausea and vomiting. He makes fair amounts of urine. - Constitutional Vitals: Temp Pulse Resp BP Pulse Ox 98.6 F 96 16 106/68 94 09/05/17 19:38 09/05/17 19:38 09/05/17 19:38 09/05/17 19:38 09/05/17 19:38 General appearance: Present: mild distress, A&O X 3, no acute distress, answers questions appropriately - Respiratory Respiratory exam: Present: CTAB. Absent: accessory muscle use, rales, rhonchi, wheezes - Cardiovascular Cardiovascular exam: Present: RRR, +S1, +S2. Absent: diastolic murmur, gallop, rubs, systolic murmur - GI/Abdominal GI/Abdominal exam: Present: normal bowel sounds, soft, no peritoneal signs. Absent: distended, tenderness - Skin Skin exam: Present: dry, intact Internal Medicine: Result - Labs CBC & Chem 7: 09/07/17 06:11 09/07/17 06:11 Labs: Short CBC 09/05/17 Range/Units 04:00 WBC 10.7 (4.3-11.1) K/mcL Hgb 14.9 (12.9-16.9) g/dL Hct 45.2 (37.5-50.1) % Plt Count 276 (140-400) K/mcL Neutrophils # 8.8 (1.6-8.9) K/mcL BMP 09/05/17 04:00 Sodium 137 Potassium 2.9 L Chloride 85 L Carbon Dioxide 41 H* BUN 35 H Creatinine 1.21 Glucose 193 H Calcium 9.3 - ABG Interpretation ABG results: PT/INR, D-dimer PT 22.4 Seconds (9.4-12.1) H 09/05/17 04:00 - Impressions Impressions Echocardiogram Limited Views 09/04/17 16:33 Impressions: LVEF 70%. Normal LV chamber size, wall thickness and function. Left Ventricular Wall Motion: Rest Echo Findings All wall segments showed normal motion. Findings: Study Quality * Technically adequate exam. ECG Findings * Normal sinus rhythm. Left Ventricle * LVEF 70%. * Normal LV chamber size, wall thickness and function. Right Ventricle * Normal right ventricular structure and function. Abdomen/Pelvis CT 09/05/17 15:00 IMPRESSION: No evidence of acute intra-abdominal inflammatory process or fluid collection. A band of consolidation in the anterior right lower lobe, likely atelectasis. Pneumonia cannot be completely excluded. D/ / Anna Goodman Cha, MD / Anna Goodman Cha, MD Interpreting Provider: Anna Goodman Cha, MD - VTE Documentation of Mechanical Device: Intermittent pneumatic compression device Consult Discharge Plan - Plan Referrals: NONE,PCP [Primary Care Provider] -
[2017-09-05] MEDS: Potassium Chloride Elixir 20 MEQ/15 ML UDC PO SCH (22:51)
[2017-09-06] MEDS: Albuterol 2.5 MG/3 ML NEBULIZER IH SCH ×7 (00:07→23:56)
[2017-09-06] MEDS: Piperacillin/Tazobactam 3.375 GM in 0.9 % Sodium Chloride Mini Bag 100 ML IVPB SCH ×3 (01:22→23:59)
[2017-09-06] MEDS: GuaiFENesin Liq 200 MG/10 ML UDC PO PRN ×2 (01:22→16:54)
[2017-09-06] MEDS: ALPRAZolam 1 MG TABLET PO PRN ×2 (01:22→16:54)
[2017-09-06] MEDS: tiZANidine 4 MG TABLET PO PRN (01:22)
[2017-09-06] MEDS: *HR* OxyCODONE Immed Rel 5 MG TABLET PO PRN ×2 (06:12→16:46)
[2017-09-06 06:34] LABS: INR 1.5; Prothrombin Time 16.8 Seconds (9.4-12.1)
[2017-09-06] MEDS: Tiotropium 18 MCG inhalation IH SCH (07:39)
--- NOTE | 2017-09-06 08:09 | Anesthesia Evaluation PreOp ---
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 Other Medical History: Renal (RITIKA), Bleeding (Factor V Leiden, DVT/PE, IVC filter, on coumadin), Diabetes Type II (Current admission 2/2 steroids), GERD, Other (Hypochloremia, Obesity) Anesthesia History: No Prior Anesthetic Complications, Past Anesthesia Alcohol Use: none Drug use: none Medications and Allergies Gabapentin [Neurontin] 300 mg PO TID 03/27/15 [History] Omeprazole [PriLOSEC] 40 mg PO DAILY@0630 #30 capsule 08/16/15 [Rx] DULoxetine [Cymbalta] 30 mg PO DAILY 02/27/17 [History] Albuterol Sulfate [Albuterol Inhaler] 2 puff IH Q4HR PRN #1 [id number] 03/06/17 [Rx] Atorvastatin [Lipitor] 10 mg PO HS 03/23/17 [History] Lisinopril [Zestril] 20 mg PO DAILY 03/23/17 [History] Ipratropium/Albuterol Neb [Duoneb] 3 ml IH Q6H PRN 30 Days inhsol 03/31/17 [Rx] Levalbuterol Neb [Xopenex Neb] 1.25 mg IH [id number] PRN vial.neb 04/04/17 [Rx] Metoprolol [Lopressor] 12.5 mg PO BID tablet 04/04/17 [Rx] Tizanidine HCl [Zanaflex] 4 mg PO TID PRN #10 capsule 04/04/17 [Rx] Furosemide [Lasix] 40 mg PO BID #60 tablet 04/05/17 [Rx] ALPRAZolam [Xanax 1 MG Tablet] 1 mg PO BID 04/17/17 [History] Fluticasone/Salmeterol [Advair 250-50 Diskus] 1 puff IH BID 04/17/17 [History] Oxygen 2 l NS CONT 04/17/17 [History] Warfarin [Coumadin] 8 mg PO DAILY 08/30/17 [History] 3 Allergy/AdvReac Type Severity Reaction Status Date / Time No Known Allergies Allergy Verified 08/13/17 19:48 - Meds/Allergy Pre-op Review Medications Reviewed: Yes Allergies Reviewed: Yes Anesthesia Results - Labs 09/05/17 04:00 09/05/17 04:00 - Imaging EKG: report reviewed (SINUS TACHYCARDIA POSSIBLE ANTERIOR MYOCARDIAL INFARCTION , PROBABLY OLD) Additional studies: Limited TTE 09/04/2017: LVEF 70%. Normal LV chamber size, wall thickness and function. TTE 03/2017: LVEF 60-65%. Normal right ventricular structure and function. No significant valvular dysfunction. No pulmonary hypertension. Chest CT 08/30: 1. Patchy ground-glass and nodular opacities and peribronchovascular distribution involving the right lung. Findings are most compatible with infection. 2. Stable elevation of the right hemidiaphragm. Abd CT 09/05: A band of consolidation in the anterior right lower lobe, likely atelectasis. Pneumonia cannot be completely excluded. 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
[2017-09-06] MEDS: Insulin LISPRO 300 UNITS/3 ML VIAL SQ SCH ×3 (09:09→16:46)
--- NOTE | 2017-09-06 10:18 | Infectious Disease Progress No ---
Date of Encounter: 09/06/17 Time of Encounter: 10:00 - Assessment and Plan (1) Sepsis Current Visit: Yes Status: Acute Had 3 SIRS criteria on admission, currently still tachycardic Likely secondary to pneumonia Qualifiers: Sepsis type: sepsis due to unspecified organism Qualified Code(s): A41.9 - Sepsis, unspecified organism (2) HCAP (healthcare-associated pneumonia) Current Visit: No Status: Acute Causative organism not clear. CT of the chest reviewed Respiratory infection panel did not detect any viruses Sputum culture was contaminated with over 25 epithelial cells per low power field Blood cultures no growth to date Urine legionella and pneumococcal antigen not ordered In March patient had a viral pneumonia with influenza type a Patient currently is on Zosyn and azithromycin. Repeat chest x-ray today shows progression of the right basilar airspace disease with new small right-sided pleural effusion Check urine legionella and pneumococcal antigen May consider repeating a CT chest Appreciate pulmonary's recommendation, Consider starting Vancomycin if no clinical improvement after bronchoscopy Monitor labs and for drug toxicity (3) Poor dentition Current Visit: Yes Status: Acute Patient tells me that his teeth are breaking off and 6 months ago his tooth was aching so he tried to remove it himself with the pliers and it shattered. Will order facial CT with contrast (4) Holli filter in place Current Visit: No Status: Chronic (5) Obesity (BMI 30-39.9) Current Visit: No Status: Chronic (6) Acute respiratory failure with hypoxia Current Visit: No Status: Acute (7) Supratherapeutic INR Current Visit: Yes Status: Acute (8) Recurrent pneumonia Current Visit: Yes Status: Acute (9) Factor V Leiden Current Visit: Yes Status: Acute - Subjective Interval history: Pt seen and examined. He states he isn't feeling well this morning due to chest congestion and pressure. He still has a persistent non-productive cough but feels like he has something stuck in his throat. Still has shortness of breath but is on his home dose of 3 L oxygen. Denies any vomiting, diarrhea, fevers overnight. Infect Dis PN-Objective Data - Labs CBC & Chem 7: 09/05/17 04:00 09/05/17 04:00 Labs: Laboratory Results - last 24 hr 09/05/17 09/05/17 09/06/17 11:07 15:38 04:00 PT 16.8 H INR 1.5 POC Glucose 217 H 146 H Cultures: Cultures 09/05/17 15:33 Legionella Antigen - Final Urine,Clean Catch Streptococcus pneumoniae Antigen (M - Final 08/31/17 19:33 Sputum Culture - Final Sputum Serology 09/03/17 09/01/17 Range/Units 15:58 13:20 Nasal Screen MRSA (PCR) Negative (Negative) Chlamy pneumoniae PCR Not Detected (Not Detect) Adenovirus (PCR) Not Detected (Not Detect) B. pertussis DNA (PCR) Not Detected (Not Detect) B.parapertussis DNA PCR Not Detected (Not Detect) Coronavirus OC43 (PCR) Not Detected (Not Detect) Coronavirus HKU1 (PCR) Not Detected (Not Detect) Coronavirus 229E (PCR) Not Detected (Not Detect) Coronavirus NL63 (PCR) Not Detected (Not Detect) Human Metapneumovir PCR Not Detected (Not Detect) Influenza A (H1) PCR Not Detected (Not Detect) Influ A (H1N1/09) PCR Not Detected (Not Detect) Influenza A (H3) PCR Not Detected (Not Detect) Influenza A Untype (PCR) Not Detected (Not Detect) Influenza Type B (PCR) Not Detected (Not Detect) M.pneumoniae DNA (PCR) Not Detected (Not Detect) Parainfluenza 1 (PCR) Not Detected (Not Detect) Parainfluenza 2 (PCR) Not Detected (Not Detect) Parainfluenza 3 (PCR) Not Detected (Not Detect) Parainfluenza 4 (PCR) Not Detected (Not Detect) RSV (PCR) Not Detected (Not Detect) Entero/Rhino (PCR) Not Detected (Not Detect) - Impressions Impressions Echocardiogram Limited Views 09/04/17 16:33 Impressions: LVEF 70%. Normal LV chamber size, wall thickness and function. Left Ventricular Wall Motion: Rest Echo Findings All wall segments showed normal motion. Findings: Study Quality * Technically adequate exam. ECG Findings * Normal sinus rhythm. Left Ventricle * LVEF 70%. * Normal LV chamber size, wall thickness and function. Right Ventricle * Normal right ventricular structure and function. Abdomen/Pelvis CT 09/05/17 15:00 IMPRESSION: No evidence of acute intra-abdominal inflammatory process or fluid collection. A band of consolidation in the anterior right lower lobe, likely atelectasis. Pneumonia cannot be completely excluded. D/ / Anna Goodman Cha, MD / Anna Goodman Cha, MD Interpreting Provider: Anna Goodman Cha, MD Exam - Constitutional Vitals: Temp Pulse Resp BP Pulse Ox 97.5 F L 73 18 101/62 97 09/06/17 06:58 09/06/17 06:58 09/06/17 07:39 09/06/17 06:58 09/06/17 07:39 General appearance: cooperative, mild distress - Head Head exam: Present: atraumatic, normocephalic - Respiratory Respiratory exam: Present: rales, wheezes. Absent: respiratory distress - Cardiovascular Cardiovascular exam: Present: RRR. Absent: systolic murmur, tachycardia - GI/Abdominal GI/Abdominal exam: Present: normal bowel sounds, soft. Absent: tenderness - Extremities Exam Extremities exam: Present: pedal edema - VTE Documentation of Mechanical Device: Intermittent pneumatic compression device Consult Discharge Plan - Plan Referrals: NONE,PCP [Primary Care Provider] - - Attending Attestation I examined this patient and my medical decision-making was reviewed with the Resident Physician. I agree with the documented findings, disposition and treatment plan as described except to the extent set forth below.
[2017-09-06] MEDS ORDERED: Isovue-370 500 ML INFUS..BTL IV ONE (11:48)
[2017-09-06] MEDS ORDERED: *HR* Propofol 200 MG/20 ML VIAL IVP ONE (12:01)
[2017-09-06] MEDS: Ringers Solution, Lactated 1,000 ML IVC SCH (12:25)
[2017-09-06] MEDS ORDERED: Lidocaine -MPF 2% 2 ML VIAL ONE (12:27)
[2017-09-06] MEDS ORDERED: *HR* Succinylcholine 200 MG/10 ML VIAL IVP ONE (12:27)
[2017-09-06] MEDS ORDERED: Lidocaine Viscous Oral Soln 15 ML SOLUTION ONE (12:53)
[2017-09-06] MEDS ORDERED: Ondansetron 4 MG/2 ML VIAL IVP ONE (13:12)
[2017-09-06] MEDS ORDERED: Albuterol 2.5 MG/3 ML NEBULIZER IH ONE (13:12)
[2017-09-06] MEDS: Furosemide 40 MG TABLET PO SCH ×2 (14:15→16:46)
[2017-09-06] MEDS: Gabapentin 300 MG CAPSULE PO SCH ×3 (14:16→20:38)
[2017-09-06] MEDS: Potassium Chloride Elixir 20 MEQ/15 ML UDC PO SCH ×2 (14:26→20:37)
[2017-09-06] MEDS: Azithromycin 250 MG TABLET PO SCH (14:26)
[2017-09-06] MEDS: predniSONE 20 MG TABLET PO SCH (14:27)
[2017-09-06] MEDS: Lisinopril 20 MG TABLET PO SCH (14:27)
[2017-09-06] MEDS: Benzonatate 100 MG CAPSULE PO PRN (16:54)
--- NOTE | 2017-09-06 18:07 | Anesthesia Evaluation Post Op ---
Date of Encounter: 09/06/17 Time of Encounter: 14:05 Notes: Patient's vital signs have been reviewed. Patient is stable postoperatively and has adequately recovered from anesthesia. Patient is determined to have stable airway patency and respiratory function including respiratory rate and oxygen saturation. Patient has a stable heart rate, blood pressure and adequate hydration. Patients mental status is acceptable. Patients temperature is appropriate. Pain and nausea are adequately controlled. - Discharge PostOp Status: Transfer Patient to floor
[2017-09-06 20:40] LABS: Appearance of Body Fluid Cloudy (Clear); Volume of Body Fluid 15 mL
--- NOTE | 2017-09-06 23:48 | Internal Med Progress Note ---
Date of Encounter: 09/06/17 Time of Encounter: 23:48 - Assessment and plan (1) HCAP (healthcare-associated pneumonia) Current Visit: No Status: Acute Assessment and plan: We will continue 3 antibiotics, as outlined by me yesterday. Bronchoscopy did not reveal any significant findings. We obtained multipleSamples from BAL. (2) COPD exacerbation Current Visit: No Status: Acute Assessment and plan: We will continue Spiriva. We will continue when necessary breathing treatments with albuterol. He gets up when necessary Tessalon. (3) Sepsis Current Visit: Yes Status: Acute Qualifiers: Sepsis type: sepsis due to unspecified organism Qualified Code(s): A41.9 - Sepsis, unspecified organism (4) Abdominal pain Current Visit: Yes Status: Acute Qualifiers: Abdominal location: generalized Qualified Code(s): R10.84 - Generalized abdominal pain (5) Factor V Leiden Current Visit: Yes Status: Acute Assessment and plan: To continue bridging with Lovenox. Will restart his warfarin. - Time Spent With Patient Total time spent is greater than 50% in coordination of care (as documented) at patient's floor/unit and/or counseling patient: - Subjective Interval history: He had bronchoscopy today. He continues to have excessive coughing. It is occasionally with wheezing. Denies chest pain. He is on supplemental oxygen. He is diffuse abdominal pain is mild. It is worse with coughing. He makes good amounts of urine. - Constitutional Vitals: Temp Pulse Resp BP Pulse Ox 98.4 F 63 17 114/73 95 09/06/17 23:20 09/06/17 23:20 09/06/17 23:20 09/06/17 23:20 09/06/17 23:20 General appearance: Present: mild distress, A&O X 3 - Respiratory Respiratory exam: Present: CTAB. Absent: accessory muscle use, rales, rhonchi, wheezes - Cardiovascular Cardiovascular exam: Present: RRR, +S1, +S2. Absent: diastolic murmur, gallop, rubs, systolic murmur - GI/Abdominal GI/Abdominal exam: Present: normal bowel sounds, soft, no peritoneal signs. Absent: distended, tenderness - Skin Skin exam: Present: dry, intact Internal Medicine: Result - Labs CBC & Chem 7: 09/07/17 06:11 09/07/17 06:11 - ABG Interpretation ABG results: PT/INR, D-dimer PT 16.8 Seconds (9.4-12.1) H 09/06/17 04:00 - Impressions Impressions Face CT 09/06/17 13:30 IMPRESSION: Multifocal dental disease. No drainable fluid collection identified. D/ / 09/06/2017 18:35:51 Pranay Chapman MD / earnold Interpreting Provider: Pranay Chapman MD - VTE Documentation of Mechanical Device: Intermittent pneumatic compression device Consult Discharge Plan - Plan Referrals: NONE,PCP [Primary Care Provider] -
[2017-09-07] MEDS: GuaiFENesin Liq 200 MG/10 ML UDC PO PRN ×4 (00:01→18:21)
[2017-09-07] MEDS: *HR* OxyCODONE Immed Rel 5 MG TABLET PO PRN ×4 (00:01→18:21)
[2017-09-07] MEDS: Albuterol 2.5 MG/3 ML NEBULIZER IH SCH ×6 (03:46→23:23)
[2017-09-07 05:00] LABS: ABG Base Excess 13 mEq/L (-2 to 3); ABG HCO3 39 mEq/L (21-27); ABG Oxygen Saturation 96 % (95-98); ABG PCO2 53 mmHg (35-45); ABG PH 7.48 pH Units (7.32-7.45); ABG PO2 76 mmHg (85-104); ABG TCO2 41 mEq/L (20-26)
[2017-09-07 06:30] LABS: Basophils # 0.1 K/mcL (0.0-0.2); Basophils % 0.3 %; Eosinophils # 0.1 K/mcL (0.0-0.6); Eosinophils % 0.3 %; Hematocrit 45.5 % (37.5-50.1); Immature Granulocytes % 1.9 % (0-4); Lymphocytes # 2.2 K/mcL (0.6-4.6); Lymphocytes % 13.6 %; Mean Corpuscular Hemoglobin 29.4 pg (28.0-33.3); Mean Platelet Volume 9.1 fL (9.4-12.4); Monocytes # 2.1 K/mcL (0.0-1.3); Monocytes % 13.4 %; Neutrophils # 11.3 K/mcL (1.6-8.9); Platelet Count 220 K/mcL (140-400); Red Blood Count 5.11 M/mcL (4.19-5.50); Red Cell Distribution Width 13.4 % (11.5-14.5); Segmented Neutrophils % 70.5 %
[2017-09-07 06:55] LABS: BUN/Creatinine Ratio 27 (6-26); Blood Urea Nitrogen 26 mg/dL (6-20); Calcium 8.6 mg/dL (8.6-10.3); Carbon Dioxide 39 mEq/L (23-29); Chloride 92 mEq/L (98-107); Glucose 139 mg/dL (70-105); Magnesium 2.6 mg/dL (1.6-2.6); Osmolality,Calculated 289 (280-300); Potassium 3.9 mEq/L (3.5-5.1); Sodium 136 mEq/L (136-145); eGFR For African Americans > 60 (> 60); eGFR For Non-African Americans > 60 (> 60)
[2017-09-07] MEDS: Ringers Solution, Lactated 1,000 ML IVC SCH (07:24)
[2017-09-07] MEDS: Insulin LISPRO 300 UNITS/3 ML VIAL SQ SCH ×3 (07:31→18:16)
[2017-09-07] MEDS: Tiotropium 18 MCG inhalation IH SCH (07:57)
[2017-09-07] MEDS: Lisinopril 20 MG TABLET PO SCH (08:29)
[2017-09-07] MEDS: Gabapentin 300 MG CAPSULE PO SCH ×3 (08:29→20:10)
[2017-09-07] MEDS: Azithromycin 250 MG TABLET PO SCH (08:29)
[2017-09-07] MEDS: Furosemide 40 MG TABLET PO SCH ×2 (08:30→18:21)
[2017-09-07] MEDS: predniSONE 20 MG TABLET PO SCH (08:30)
[2017-09-07] MEDS: Potassium Chloride Elixir 20 MEQ/15 ML UDC PO SCH ×2 (08:30→20:10)
[2017-09-07] MEDS: Piperacillin/Tazobactam 3.375 GM in 0.9 % Sodium Chloride Mini Bag 100 ML IVPB SCH ×2 (08:30→18:21)
--- NOTE | 2017-09-07 10:08 | Infectious Disease Progress No ---
Date of Encounter: 09/07/17 Time of Encounter: 10:06 - Assessment and Plan (1) Sepsis Current Visit: Yes Status: Acute Had 3 SIRS criteria on admission, currently still tachycardic Likely secondary to pneumonia Qualifiers: Sepsis type: sepsis due to unspecified organism Qualified Code(s): A41.9 - Sepsis, unspecified organism (2) HCAP (healthcare-associated pneumonia) Current Visit: No Status: Acute Causative organism not clear. CT of the chest reviewed Respiratory infection panel did not detect any viruses Sputum culture was contaminated with over 25 epithelial cells per low power field Blood cultures no growth to date Urine legionella and pneumococcal antigen not ordered In March patient had a viral pneumonia with influenza type a Patient currently is on Zosyn and azithromycin. Repeat chest x-ray today shows progression of the right basilar airspace disease with new small right-sided pleural effusion Check urine legionella and pneumococcal antigen May consider repeating a CT chest Appreciate pulmonary's recommendation, Since not clinically improving after bronch, which showed GPC on gram stain, will start Vancomyin and stop Azithromycin Await final bronchoscopy results Monitor labs and for drug toxicity (3) Poor dentition Current Visit: Yes Status: Acute Patient tells me that his teeth are breaking off and 6 months ago his tooth was aching so he tried to remove it himself with the pliers and it shattered. Facial CT with contrast showed multifocal dental disease without obvious drainable fluid (4) Holli filter in place Current Visit: No Status: Chronic (5) Obesity (BMI 30-39.9) Current Visit: No Status: Chronic (6) Acute respiratory failure with hypoxia Current Visit: No Status: Acute (7) Supratherapeutic INR Current Visit: Yes Status: Acute (8) Recurrent pneumonia Current Visit: Yes Status: Acute (9) Factor V Leiden Current Visit: Yes Status: Acute - Subjective Interval history: Pt seen and examined. He states he is feeling about the same as yesterday and is still having difficulty with breathing, chest pressure, and non-productive cough. Denies fever, chills, nausea, vomiting, diarrhea. Infect Dis PN-Objective Data - Labs CBC & Chem 7: 09/07/17 06:11 09/07/17 06:11 Labs: Laboratory Results - last 24 hr 09/05/17 09/06/17 09/06/17 19:41 08:00 11:36 WBC RBC Hgb Hct MCV MCH MCHC RDW Plt Count MPV Immature Gran % Seg Neutrophils % Lymphocytes % Monocytes % Eosinophils % Basophils % Neutrophils # Lymphocytes # Monocytes # Eosinophils # Basophils # Sample Site ABG pH ABG pCO2 ABG pO2 ABG HCO3 ABG Total CO2 ABG O2 Saturation ABG Base Excess O2 Delivery Device Inspired O2 Sodium Potassium Chloride Carbon Dioxide BUN Creatinine Est GFR ( Amer) Est GFR (Non-Af Amer) BUN/Creatinine Ratio Glucose POC Glucose 216 H 124 H 121 H Calculated Osmolality Calcium Magnesium Fluid Source Fluid Volume Fluid Appearance Fluid RBC Fld Tot Nucleated Cell Fluid Seg Neutrophil % Fluid Lymphocytes % Fluid Monocytes % Fluid Other Cells % 09/06/17 09/06/17 09/06/17 13:25 16:37 20:21 WBC RBC Hgb Hct MCV MCH MCHC RDW Plt Count MPV Immature Gran % Seg Neutrophils % Lymphocytes % Monocytes % Eosinophils % Basophils % Neutrophils # Lymphocytes # Monocytes # Eosinophils # Basophils # Sample Site ABG pH ABG pCO2 ABG pO2 ABG HCO3 ABG Total CO2 ABG O2 Saturation ABG Base Excess O2 Delivery Device Inspired O2 Sodium Potassium Chloride Carbon Dioxide BUN Creatinine Est GFR ( Amer) Est GFR (Non-Af Amer) BUN/Creatinine Ratio Glucose POC Glucose 253 H 138 H Calculated Osmolality Calcium Magnesium Fluid Source rml bal Fluid Volume 15 Fluid Appearance Cloudy A Fluid RBC 0.075 Fld Tot Nucleated Cell 6624 Fluid Seg Neutrophil % 76.0 Fluid Lymphocytes % 12.0 Fluid Monocytes % 8.0 Fluid Other Cells % 4.0 09/07/17 09/07/17 09/07/17 04:56 06:11 06:11 WBC 16.0 H RBC 5.11 Hgb 15.0 Hct 45.5 MCV 89.0 MCH 29.4 MCHC 33.0 RDW 13.4 Plt Count 220 MPV 9.1 L Immature Gran % 1.9 Seg Neutrophils % 70.5 Lymphocytes % 13.6 Monocytes % 13.4 Eosinophils % 0.3 Basophils % 0.3 Neutrophils # 11.3 H Lymphocytes # 2.2 Monocytes # 2.1 H Eosinophils # 0.1 Basophils # 0.1 Sample Site L Radial ABG pH 7.48 H ABG pCO2 53 H ABG pO2 76 L ABG HCO3 39 H ABG Total CO2 41 H ABG O2 Saturation 96 ABG Base Excess 13 H O2 Delivery Device Cannula Inspired O2 3.0 Sodium 136 Potassium 3.9 Chloride 92 L Carbon Dioxide 39 H BUN 26 H Creatinine 0.96 Est GFR ( Amer) > 60 Est GFR (Non-Af Amer) > 60 BUN/Creatinine Ratio 27 H Glucose 139 H POC Glucose Calculated Osmolality 289 Calcium 8.6 Magnesium 2.6 Fluid Source Fluid Volume Fluid Appearance Fluid RBC Fld Tot Nucleated Cell Fluid Seg Neutrophil % Fluid Lymphocytes % Fluid Monocytes % Fluid Other Cells % Cultures: Cultures 09/06/17 13:25 Gram Stain - Final Right Middle Lobe Lung 09/05/17 15:33 Legionella Antigen - Final Urine,Clean Catch Streptococcus pneumoniae Antigen (M - Final 08/31/17 19:33 Sputum Culture - Final Sputum Serology 09/06/17 09/03/17 09/01/17 Range/Units 13:25 15:58 13:20 Fluid Source rml bal Fluid Volume 15 mL Fluid Appearance Cloudy A (Clear) Fluid RBC 0.075 (No Ref Range) M/mcL Fld Tot Nucleated Cell 6624 (No Ref Range) TNC/mcL Fluid Seg Neutrophil % 76.0 % Fluid Lymphocytes % 12.0 % Fluid Monocytes % 8.0 % Fluid Other Cells % 4.0 % Nasal Screen MRSA (PCR) Negative (Negative) Chlamy pneumoniae PCR Not Detected (Not Detect) Adenovirus (PCR) Not Detected (Not Detect) B. pertussis DNA (PCR) Not Detected (Not Detect) B.parapertussis DNA PCR Not Detected (Not Detect) Coronavirus OC43 (PCR) Not Detected (Not Detect) Coronavirus HKU1 (PCR) Not Detected (Not Detect) Coronavirus 229E (PCR) Not Detected (Not Detect) Coronavirus NL63 (PCR) Not Detected (Not Detect) Human Metapneumovir PCR Not Detected (Not Detect) Influenza A (H1) PCR Not Detected (Not Detect) Influ A (H1N1/09) PCR Not Detected (Not Detect) Influenza A (H3) PCR Not Detected (Not Detect) Influenza A Untype (PCR) Not Detected (Not Detect) Influenza Type B (PCR) Not Detected (Not Detect) M.pneumoniae DNA (PCR) Not Detected (Not Detect) Parainfluenza 1 (PCR) Not Detected (Not Detect) Parainfluenza 2 (PCR) Not Detected (Not Detect) Parainfluenza 3 (PCR) Not Detected (Not Detect) Parainfluenza 4 (PCR) Not Detected (Not Detect) RSV (PCR) Not Detected (Not Detect) Entero/Rhino (PCR) Not Detected (Not Detect) - Impressions Impressions Face CT 09/06/17 13:30 IMPRESSION: Multifocal dental disease. No drainable fluid collection identified. D/ / 09/06/2017 18:35:51 Pranay Chapman MD / earnold Interpreting Provider: Pranay Chapman MD Exam - Constitutional Vitals: Temp Pulse Resp BP Pulse Ox 97.6 F 57 18 112/68 95 09/07/17 07:16 09/07/17 07:16 09/07/17 07:58 09/07/17 07:16 09/07/17 08:39 General appearance: no acute distress, no febrile - Head Head exam: Present: atraumatic, normocephalic - Respiratory Respiratory exam: Present: prolonged expiratory phase, wheezes. Absent: decreased breath sounds, respiratory distress - Cardiovascular Cardiovascular exam: Present: RRR - GI/Abdominal GI/Abdominal exam: Present: normal bowel sounds, soft. Absent: tenderness - Extremities Exam Extremities exam: Present: pedal edema (trace) - VTE Documentation of Mechanical Device: Intermittent pneumatic compression device Consult Discharge Plan - Plan Referrals: NONE,PCP [Primary Care Provider] - - Attending Attestation I examined this patient and my medical decision-making was reviewed with the Resident Physician. I agree with the documented findings, disposition and treatment plan as described except to the extent set forth below.
[2017-09-07] MEDS: ALPRAZolam 1 MG TABLET PO PRN (14:08)
[2017-09-07] MEDS ORDERED: Warfarin perPT PO PRN (18:00)
[2017-09-07] MEDS ORDERED: *HR* Warfarin 5 MG TABLET PO ONE (18:00)
[2017-09-07] MEDS: *HR* Enoxaparin 150 MG/ML SYRINGE SQ SCH (18:21)
[2017-09-07] MEDS: Budesonide Neb 0.5 MG/2 ML IH SCH (20:02)
[2017-09-07] MEDS: Benzonatate 100 MG CAPSULE PO SCH (20:10)
--- NOTE | 2017-09-07 23:33 | Internal Med Progress Note ---
Date of Encounter: 09/07/17 Time of Encounter: 23:33 - Assessment and plan (1) HCAP (healthcare-associated pneumonia) Current Visit: No Status: Acute Assessment and plan: To continue IV vancomycin, IV Zosyn and IV Zithromax. See notes from infectious diseases. Awaiting culture results from bronchoscopy done yesterday. (2) COPD exacerbation Current Visit: No Status: Acute Assessment and plan: He is on prednisone at 20 mg daily. I will start him on Pulmicort. I will make his Tessalon scheduled. (3) Sepsis Current Visit: Yes Status: Acute Assessment and plan: Basically under control. See treatments above. Qualifiers: Sepsis type: sepsis due to unspecified organism Qualified Code(s): A41.9 - Sepsis, unspecified organism (4) Factor V Leiden Current Visit: Yes Status: Acute Assessment and plan: Warfarin has been restarted. We will continue bridging with subcutaneous Lovenox. - Time Spent With Patient Total time spent is greater than 50% in coordination of care (as documented) at patient's floor/unit and/or counseling patient: - Subjective Interval history: His cough is bothering him quite a bit. He is not having wheezing anymore. Denies chest pain. He is abdominal pain is very mild. It is worse with coughing. He makes good amounts of urine. - Constitutional Vitals: Temp Pulse Resp BP Pulse Ox 97.7 F 90 16 101/66 94 09/07/17 19:04 09/07/17 19:04 09/07/17 23:24 09/07/17 19:04 09/07/17 23:24 General appearance: Present: mild distress, A&O X 3 - Respiratory Respiratory exam: Present: CTAB. Absent: accessory muscle use, rales, rhonchi, wheezes - Cardiovascular Cardiovascular exam: Present: RRR, +S1, +S2. Absent: diastolic murmur, gallop, rubs, systolic murmur - GI/Abdominal GI/Abdominal exam: Present: normal bowel sounds, soft, no peritoneal signs. Absent: distended, tenderness - Skin Skin exam: Present: dry, intact Internal Medicine: Result - Labs CBC & Chem 7: 09/07/17 06:11 09/07/17 06:11 Labs: Short CBC 09/07/17 Range/Units 06:11 WBC 16.0 H (4.3-11.1) K/mcL Hgb 15.0 (12.9-16.9) g/dL Hct 45.5 (37.5-50.1) % Plt Count 220 (140-400) K/mcL Neutrophils # 11.3 H (1.6-8.9) K/mcL BMP 09/07/17 06:11 Sodium 136 Potassium 3.9 Chloride 92 L Carbon Dioxide 39 H BUN 26 H Creatinine 0.96 Glucose 139 H Calcium 8.6 - ABG Interpretation ABG results: ABG ABG pH 7.48 pH Units (7.32-7.45) H 09/07/17 04:56 ABG pCO2 53 mmHg (35-45) H 09/07/17 04:56 ABG pO2 76 mmHg (85-104) L 09/07/17 04:56 ABG O2 Saturation 96 % (95-98) 09/07/17 04:56 PT/INR, D-dimer PT 16.8 Seconds (9.4-12.1) H 09/06/17 04:00 - VTE Documentation of Mechanical Device: Intermittent pneumatic compression device Consult Discharge Plan - Plan Referrals: NONE,PCP [Primary Care Provider] -
[2017-09-08] MEDS: *HR* OxyCODONE Immed Rel 5 MG TABLET PO PRN ×4 (00:25→18:00)
[2017-09-08] MEDS: tiZANidine 4 MG TABLET PO PRN (00:26)
[2017-09-08] MEDS: ALPRAZolam 1 MG TABLET PO PRN ×2 (00:28→15:56)
[2017-09-08] MEDS: Piperacillin/Tazobactam 3.375 GM in 0.9 % Sodium Chloride Mini Bag 100 ML IVPB SCH ×3 (00:34→17:56)
[2017-09-08] MEDS: Albuterol 2.5 MG/3 ML NEBULIZER IH SCH ×6 (03:50→23:01)
[2017-09-08] MEDS: Ringers Solution, Lactated 1,000 ML IVC SCH (04:21)
[2017-09-08 04:33] LABS: Prothrombin Time 11.1 Seconds (9.4-12.1)
[2017-09-08] MEDS: *HR* Enoxaparin 150 MG/ML SYRINGE SQ SCH ×2 (06:26→17:55)
[2017-09-08] MEDS: Tiotropium 18 MCG inhalation IH SCH (07:41)
[2017-09-08] MEDS: Insulin LISPRO 300 UNITS/3 ML VIAL SQ SCH ×3 (08:19→17:59)
[2017-09-08] MEDS: predniSONE 20 MG TABLET PO SCH (08:20)
[2017-09-08] MEDS: Furosemide 40 MG TABLET PO SCH ×2 (08:20→17:55)
[2017-09-08] MEDS: Benzonatate 100 MG CAPSULE PO SCH ×3 (08:20→20:47)
[2017-09-08] MEDS: Potassium Chloride Elixir 20 MEQ/15 ML UDC PO SCH ×2 (08:20→20:48)
[2017-09-08] MEDS: Gabapentin 300 MG CAPSULE PO SCH ×3 (08:20→20:47)
[2017-09-08] MEDS: Lisinopril 20 MG TABLET PO SCH (08:20)
--- NOTE | 2017-09-08 10:13 | Infectious Disease Progress No ---
Date of Encounter: 09/08/17 Time of Encounter: 09:50 - Assessment and Plan (1) Sepsis Current Visit: Yes Status: Acute Had 3 SIRS criteria on admission, normal heart rate this morning Likely secondary to pneumonia Qualifiers: Sepsis type: sepsis due to unspecified organism Qualified Code(s): A41.9 - Sepsis, unspecified organism (2) HCAP (healthcare-associated pneumonia) Current Visit: No Status: Acute Causative organism not clear. CT of the chest reviewed Respiratory infection panel did not detect any viruses Sputum culture was contaminated with over 25 epithelial cells per low power field Blood cultures no growth to date Urine legionella and pneumococcal antigen not ordered In March patient had a viral pneumonia with influenza type a Patient currently is on Zosyn and Vancomycin Will repeat CXR in AM Appreciate pulmonary's recommendation, Bronchoscopy showed GPC on gram stain, but culture negative Await final bronchoscopy results Monitor labs and for drug toxicity (3) Poor dentition Current Visit: Yes Status: Acute Patient tells me that his teeth are breaking off and 6 months ago his tooth was aching so he tried to remove it himself with the pliers and it shattered. Facial CT with contrast showed multifocal dental disease without obvious drainable fluid (4) Holli filter in place Current Visit: No Status: Chronic (5) Obesity (BMI 30-39.9) Current Visit: No Status: Chronic (6) Acute respiratory failure with hypoxia Current Visit: No Status: Acute (7) Supratherapeutic INR Current Visit: Yes Status: Acute (8) Recurrent pneumonia Current Visit: Yes Status: Acute (9) Factor V Leiden Current Visit: Yes Status: Acute - Subjective Interval history: Pt seen and examined. He states his breathing is slightly better but he still feels he is unable to cough up phlegm in his lungs and feels chest congestion and pressure. Denies any fever, nausea, vomiting, diarrhea. Infect Dis PN-Objective Data - Labs CBC & Chem 7: 09/07/17 06:11 09/07/17 06:11 Labs: Laboratory Results - last 24 hr 09/07/17 09/07/17 09/08/17 16:49 20:26 04:00 PT 11.1 INR 1.0 POC Glucose 119 H 137 H 09/08/17 07:47 PT INR POC Glucose 145 H Cultures: Cultures 09/06/17 13:25 Gram Stain - Final Right Middle Lobe Lung Respiratory Culture - Preliminary Normal upper respiratory tract gemma. No apparent pathogens isolated. 09/06/17 13:25 Acid Fast Stain - Final Right Middle Lobe Lung 09/05/17 15:33 Legionella Antigen - Final Urine,Clean Catch Streptococcus pneumoniae Antigen (M - Final 08/31/17 19:33 Sputum Culture - Final Sputum Serology 09/06/17 09/03/17 09/01/17 Range/Units 13:25 15:58 13:20 Fluid Source rml bal Fluid Volume 15 mL Fluid Appearance Cloudy A (Clear) Fluid RBC 0.075 (No Ref Range) M/mcL Fld Tot Nucleated Cell 6624 (No Ref Range) TNC/mcL Fluid Seg Neutrophil % 76.0 % Fluid Lymphocytes % 12.0 % Fluid Monocytes % 8.0 % Fluid Other Cells % 4.0 % Nasal Screen MRSA (PCR) Negative (Negative) Chlamy pneumoniae PCR Not Detected (Not Detect) Adenovirus (PCR) Not Detected (Not Detect) B. pertussis DNA (PCR) Not Detected (Not Detect) B.parapertussis DNA PCR Not Detected (Not Detect) Coronavirus OC43 (PCR) Not Detected (Not Detect) Coronavirus HKU1 (PCR) Not Detected (Not Detect) Coronavirus 229E (PCR) Not Detected (Not Detect) Coronavirus NL63 (PCR) Not Detected (Not Detect) Human Metapneumovir PCR Not Detected (Not Detect) Influenza A (H1) PCR Not Detected (Not Detect) Influ A (H1N1/09) PCR Not Detected (Not Detect) Influenza A (H3) PCR Not Detected (Not Detect) Influenza A Untype (PCR) Not Detected (Not Detect) Influenza Type B (PCR) Not Detected (Not Detect) M.pneumoniae DNA (PCR) Not Detected (Not Detect) Parainfluenza 1 (PCR) Not Detected (Not Detect) Parainfluenza 2 (PCR) Not Detected (Not Detect) Parainfluenza 3 (PCR) Not Detected (Not Detect) Parainfluenza 4 (PCR) Not Detected (Not Detect) RSV (PCR) Not Detected (Not Detect) Entero/Rhino (PCR) Not Detected (Not Detect) Exam - Constitutional Vitals: Temp Pulse Resp BP Pulse Ox 97.8 F 68 15 112/69 98 09/08/17 03:45 09/08/17 06:57 09/08/17 07:45 09/08/17 06:57 09/08/17 07:45 General appearance: cooperative, no acute distress, no febrile - Head Head exam: Present: atraumatic, normocephalic - Respiratory Respiratory exam: Present: rales, wheezes. Absent: accessory muscle use, respiratory distress - Cardiovascular Cardiovascular exam: Present: RRR. Absent: irregular rhythm, systolic murmur, tachycardia - GI/Abdominal GI/Abdominal exam: Present: normal bowel sounds, soft. Absent: tenderness - Extremities Exam Extremities exam: Present: pedal edema (trace) - VTE Documentation of Mechanical Device: Intermittent pneumatic compression device Consult Discharge Plan - Plan Referrals: NONE,PCP [Primary Care Provider] - - Attending Attestation I examined this patient and my medical decision-making was reviewed with the Resident Physician. I agree with the documented findings, disposition and treatment plan as described except to the extent set forth below.
[2017-09-08] MEDS: Budesonide Neb 0.5 MG/2 ML IH SCH ×2 (11:25→21:55)
[2017-09-08] MEDS ORDERED: Menthol 9.1 MG LOZENGE PO PRN (14:17)
[2017-09-08] MEDS ORDERED: *HR* Warfarin 5 MG TABLET PO ONE (18:00)
[2017-09-09] MEDS: ALPRAZolam 1 MG TABLET PO PRN ×2 (00:16→17:50)
[2017-09-09] MEDS: *HR* OxyCODONE Immed Rel 5 MG TABLET PO PRN ×4 (00:16→18:24)
[2017-09-09] MEDS: Ringers Solution, Lactated 1,000 ML IVC SCH ×2 (02:00→20:43)
[2017-09-09] MEDS: Piperacillin/Tazobactam 3.375 GM in 0.9 % Sodium Chloride Mini Bag 100 ML IVPB SCH ×5 (02:06→21:38)
[2017-09-09 03:17] LABS: Basophils # 0.1 K/mcL (0.0-0.2); Basophils % 0.4 %; Eosinophils # 0.2 K/mcL (0.0-0.6); Eosinophils % 1.4 %; Hematocrit 43.4 % (37.5-50.1); Hemoglobin 14.2 g/dL (12.9-16.9); Immature Granulocytes % 2.4 % (0-4); Lymphocytes % 21.4 %; Mean Corpuscular HGB Conc 32.7 g/dL (31.6-35.5); Mean Corpuscular Hemoglobin 29.3 pg (28.0-33.3); Mean Corpuscular Volume 89.5 fL (83.0-100.0); Mean Platelet Volume 9.3 fL (9.4-12.4); Monocytes # 1.7 K/mcL (0.0-1.3); Monocytes % 12.3 %; Neutrophils # 8.7 K/mcL (1.6-8.9); Platelet Count 209 K/mcL (140-400); Red Blood Count 4.85 M/mcL (4.19-5.50); Red Cell Distribution Width 13.5 % (11.5-14.5); Segmented Neutrophils % 62.1 %
[2017-09-09 03:24] LABS: BUN/Creatinine Ratio 24 (6-26); Blood Urea Nitrogen 24 mg/dL (6-20); Calcium 8.4 mg/dL (8.6-10.3); Carbon Dioxide 34 mEq/L (23-29); Chloride 98 mEq/L (98-107); Glucose 126 mg/dL (70-105); INR 1.2; Osmolality,Calculated 286 (280-300); Potassium 4.6 mEq/L (3.5-5.1); Prothrombin Time 13.1 Seconds (9.4-12.1); Sodium 135 mEq/L (136-145); eGFR For African Americans > 60 (> 60); eGFR For Non-African Americans > 60 (> 60)
[2017-09-09] MEDS: Albuterol 2.5 MG/3 ML NEBULIZER IH SCH ×5 (03:36→22:32)
--- NOTE | 2017-09-09 05:34 | Internal Med Progress Note ---
Date of Encounter: 09/08/17 Time of Encounter: 15:00 - Assessment and plan (1) HCAP (healthcare-associated pneumonia) Current Visit: No Status: Acute (2) COPD exacerbation Current Visit: No Status: Acute (3) Sepsis Current Visit: Yes Status: Acute Qualifiers: Sepsis type: sepsis due to unspecified organism Qualified Code(s): A41.9 - Sepsis, unspecified organism (4) Chronic respiratory failure with hypoxia and hypercapnia Current Visit: Yes Status: Chronic (5) Factor V Leiden Current Visit: Yes Status: Acute - Time Spent With Patient Total time spent is greater than 50% in coordination of care (as documented) at patient's floor/unit and/or counseling patient: 25 - 35 minutes - Subjective Interval history: .. His cough is bothering him quite a bit. It is occasionally associated with wheezing. Denies chest pain. He is abdominal pain is very mild. It is worse with coughing. He makes good amounts of urine. OBJECTIVE: .. See below.. ASSESSMENT AND PLAN: .. Pneumonia/COPD exacerbation with sepsis. See notes from infectious diseases.We will continue IV vancomycin/IV Zosyn.He had bronchoscopy done on September 06. The cultures are not revealing any particular organisms.His nebulizer treatments include Pulmicort, Spiriva and albuterol. He is on prednisone at 20 mg daily.He gets scheduled Tessalon. He has underlying chronic respiratory failure with hypoxia and hypercapnia. The acute respiratory component subsided. Factor V Leiden. The patient has been restarted on warfarin. It is managed by our pharmacy. He gets a bridging Lovenox. - Constitutional Vitals: Temp Pulse Resp BP Pulse Ox 98.1 F 60 18 118/70 95 09/09/17 04:20 09/09/17 04:20 09/09/17 04:20 09/09/17 04:20 09/09/17 04:20 General appearance: Present: mild distress, A&O X 3 Internal Medicine: Result - Labs CBC & Chem 7: 09/09/17 02:46 09/09/17 02:46 Labs: Short CBC 09/09/17 Range/Units 02:46 WBC 14.0 H (4.3-11.1) K/mcL Hgb 14.2 (12.9-16.9) g/dL Hct 43.4 (37.5-50.1) % Plt Count 209 (140-400) K/mcL Neutrophils # 8.7 (1.6-8.9) K/mcL BMP 09/09/17 02:46 Sodium 135 L Potassium 4.6 Chloride 98 Carbon Dioxide 34 H BUN 24 H Creatinine 1.00 Glucose 126 H Calcium 8.4 L - ABG Interpretation ABG results: ABG ABG pH 7.48 pH Units (7.32-7.45) H 09/07/17 04:56 ABG pCO2 53 mmHg (35-45) H 09/07/17 04:56 ABG pO2 76 mmHg (85-104) L 09/07/17 04:56 ABG O2 Saturation 96 % (95-98) 09/07/17 04:56 PT/INR, D-dimer PT 13.1 Seconds (9.4-12.1) H 09/09/17 02:46 - VTE Documentation of Mechanical Device: Intermittent pneumatic compression device Consult Discharge Plan - Plan Referrals: NONE,PCP [Primary Care Provider] -
[2017-09-09] MEDS: *HR* Enoxaparin 150 MG/ML SYRINGE SQ SCH ×2 (06:02→17:51)
[2017-09-09] MEDS: Tiotropium 18 MCG inhalation IH SCH (08:09)
[2017-09-09] MEDS: Budesonide Neb 0.5 MG/2 ML IH SCH ×2 (08:09→22:32)
[2017-09-09] MEDS: Benzonatate 100 MG CAPSULE PO SCH ×3 (08:54→20:49)
[2017-09-09] MEDS: predniSONE 20 MG TABLET PO SCH ×2 (08:54→20:49)
[2017-09-09] MEDS: Furosemide 40 MG TABLET PO SCH ×2 (08:55→17:50)
[2017-09-09] MEDS: Lisinopril 20 MG TABLET PO SCH (08:55)
[2017-09-09] MEDS: Potassium Chloride Elixir 20 MEQ/15 ML UDC PO SCH ×2 (08:55→20:49)
[2017-09-09] MEDS: Gabapentin 300 MG CAPSULE PO SCH ×3 (08:55→20:49)
[2017-09-09] MEDS: Insulin LISPRO 300 UNITS/3 ML VIAL SQ SCH ×3 (08:56→17:51)
[2017-09-09] MEDS ORDERED: Aminoglycoside Consult 1 EACH MC ONE (11:59)
[2017-09-09] MEDS: Acetylcysteine 10% 2 ML INHSOL IH SCH ×2 (15:39→22:37)
[2017-09-09] MEDS ORDERED: *HR* Warfarin 7.5 MG TABLET PO ONE (18:00)
--- NOTE | 2017-09-09 23:33 | Internal Med Progress Note ---
Date of Encounter: 09/09/17 Time of Encounter: 23:33 - Assessment and plan (1) HCAP (healthcare-associated pneumonia) Current Visit: No Status: Acute (2) COPD exacerbation Current Visit: No Status: Acute (3) Sepsis Current Visit: Yes Status: Acute Qualifiers: Sepsis type: sepsis due to unspecified organism Qualified Code(s): A41.9 - Sepsis, unspecified organism (4) Chronic respiratory failure with hypoxia and hypercapnia Current Visit: Yes Status: Chronic (5) Factor V Leiden Current Visit: Yes Status: Acute - Time Spent With Patient Total time spent is greater than 50% in coordination of care (as documented) at patient's floor/unit and/or counseling patient: 25 - 35 minutes - Subjective Interval history: .. He continues to have moderate coughing. It is basically without any wheezing. He tells me that he has had difficulty to expectorate thick mucus. Denies chest pain. He is abdominal pain is very mild. It is worse with coughing. He makes good amounts of urine. OBJECTIVE: .. See below.. ASSESSMENT AND PLAN: .. Pneumonia/COPD exacerbation with sepsis. See notes from infectious diseases.We will continue IV vancomycin/IV Zosyn.He had bronchoscopy done on September 06. The cultures are not revealing any particular organisms. We will continue IV vancomycin/IV Zosyn. We will continue Spiriva and albuterol inhalations. Will start 20% Mucomyst inhalations. Will increase his dose of prednisone to 60 mg daily. He has underlying chronic respiratory failure with hypoxia and hypercapnia. The acute respiratory component subsided. He is using 3 L/min oxygen. It is his baseline at home. Factor V Leiden. The patient has been restarted on warfarin. It is managed by our pharmacy. He gets a bridging Lovenox. - Constitutional Vitals: Temp Pulse Resp BP Pulse Ox 98.0 F 98 18 126/83 95 09/09/17 20:01 09/09/17 20:01 09/09/17 22:35 09/09/17 20:01 09/09/17 22:35 General appearance: Present: mild distress, A&O X 3 Internal Medicine: Result - Labs CBC & Chem 7: 09/09/17 02:46 09/09/17 02:46 Labs: Short CBC 09/09/17 Range/Units 02:46 WBC 14.0 H (4.3-11.1) K/mcL Hgb 14.2 (12.9-16.9) g/dL Hct 43.4 (37.5-50.1) % Plt Count 209 (140-400) K/mcL Neutrophils # 8.7 (1.6-8.9) K/mcL BMP 09/09/17 02:46 Sodium 135 L Potassium 4.6 Chloride 98 Carbon Dioxide 34 H BUN 24 H Creatinine 1.00 Glucose 126 H Calcium 8.4 L - ABG Interpretation ABG results: ABG ABG pH 7.48 pH Units (7.32-7.45) H 09/07/17 04:56 ABG pCO2 53 mmHg (35-45) H 09/07/17 04:56 ABG pO2 76 mmHg (85-104) L 09/07/17 04:56 ABG O2 Saturation 96 % (95-98) 09/07/17 04:56 PT/INR, D-dimer PT 13.1 Seconds (9.4-12.1) H 09/09/17 02:46 - Impressions Impressions Chest X-Ray 09/09/17 06:00 IMPRESSION: Elevated right hemidiaphragm with persistent right basilar atelectasis. The findings in the right lung base were seen to better advantage on CT from 09/05/2017. D/ / 09/09/2017 07:49:01 Emanuel Alvarenga MD / renyer Interpreting Provider: Emanuel Alvarenga MD - VTE Documentation of Mechanical Device: Intermittent pneumatic compression device Consult Discharge Plan - Plan Referrals: NONE,PCP [Primary Care Provider] -
[2017-09-10] MEDS: *HR* OxyCODONE Immed Rel 5 MG TABLET PO PRN ×4 (00:31→18:52)
[2017-09-10] MEDS: ALPRAZolam 1 MG TABLET PO PRN ×2 (00:32→16:43)
[2017-09-10] MEDS: Piperacillin/Tazobactam 3.375 GM in 0.9 % Sodium Chloride Mini Bag 100 ML IVPB SCH ×3 (01:59→16:47)
[2017-09-10] MEDS: Albuterol 2.5 MG/3 ML NEBULIZER IH SCH ×4 (03:38→22:03)
[2017-09-10 03:47] LABS: INR 1.3; Prothrombin Time 14.4 Seconds (9.4-12.1)
[2017-09-10] MEDS: Acetylcysteine 10% 2 ML INHSOL IH SCH ×4 (04:15→22:03)
[2017-09-10] MEDS: *HR* Enoxaparin 150 MG/ML SYRINGE SQ SCH ×2 (06:19→16:44)
[2017-09-10] MEDS: Lisinopril 20 MG TABLET PO SCH (08:09)
[2017-09-10] MEDS: Benzonatate 100 MG CAPSULE PO SCH ×3 (08:09→21:23)
[2017-09-10] MEDS: Gabapentin 300 MG CAPSULE PO SCH ×3 (08:09→21:23)
[2017-09-10] MEDS: Furosemide 40 MG TABLET PO SCH ×2 (08:09→16:44)
[2017-09-10] MEDS: Potassium Chloride Elixir 20 MEQ/15 ML UDC PO SCH ×2 (08:09→21:23)
[2017-09-10] MEDS: predniSONE 20 MG TABLET PO SCH ×3 (08:09→21:22)
[2017-09-10] MEDS: Insulin LISPRO 300 UNITS/3 ML VIAL SQ SCH ×3 (08:10→17:02)
[2017-09-10] MEDS: Budesonide Neb 0.5 MG/2 ML IH SCH ×2 (11:23→22:04)
[2017-09-10] MEDS: Tiotropium 18 MCG inhalation IH SCH (12:08)
[2017-09-10] MEDS ORDERED: Ondansetron ODT 4 MG TAB.RAPDIS SL PRN (16:34)
[2017-09-10] MEDS: Ringers Solution, Lactated 1,000 ML IVC SCH (17:04)
[2017-09-10] MEDS ORDERED: *HR* Warfarin 5 MG TABLET PO ONE (18:00)
--- NOTE | 2017-09-10 23:17 | Internal Med Progress Note ---
Date of Encounter: 09/10/17 Time of Encounter: 23:17 - Assessment and plan (1) HCAP (healthcare-associated pneumonia) Current Visit: No Status: Acute (2) COPD exacerbation Current Visit: No Status: Acute (3) Sepsis Current Visit: Yes Status: Acute Qualifiers: Sepsis type: sepsis due to unspecified organism Qualified Code(s): A41.9 - Sepsis, unspecified organism (4) Chronic respiratory failure with hypoxia and hypercapnia Current Visit: Yes Status: Chronic (5) Factor V Leiden Current Visit: Yes Status: Acute - Time Spent With Patient Total time spent is greater than 50% in coordination of care (as documented) at patient's floor/unit and/or counseling patient: - Subjective Interval history: .. His cough seems to be a little bit easier for him. He secretions are thinner, after we started him on Mucomyst inhalations. He is on 3 L/min oxygen; like at home. Denies chest pain. Diffuse abdominal pain is mild. It is worse with coughing. He has normal urination. OBJECTIVE: .. See below.. ASSESSMENT AND PLAN: .. Pneumonia/COPD exacerbation with sepsis. See notes from infectious diseases. He had bronchoscopy done on September 06. The cultures are not revealing any particular organisms. We will continue IV vancomycin/IV Zosyn. We will continue Mucomyst, Spiriva and albuterol inhalations. His prednisone is at 20 mg by mouth 3 times a day. He has underlying chronic respiratory failure with hypoxia and hypercapnia. The acute respiratory component subsided. He is using 3 L/min oxygen. It is his baseline at home. His bicarb has decreased quite a bit. Factor V Leiden. The patient has been restarted on warfarin. It is managed by our pharmacy. He gets a bridging Lovenox. - Constitutional Vitals: Temp Pulse Resp BP Pulse Ox 98.0 F 72 17 114/74 96 09/10/17 19:35 09/10/17 19:35 09/10/17 22:03 09/10/17 19:35 09/10/17 22:03 General appearance: Present: mild distress, A&O X 3 - Respiratory Respiratory exam: Present: CTAB. Absent: accessory muscle use, rales, rhonchi, wheezes - Cardiovascular Cardiovascular exam: Present: RRR, +S1, +S2. Absent: diastolic murmur, gallop, rubs, systolic murmur - GI/Abdominal GI/Abdominal exam: Present: normal bowel sounds, soft, no peritoneal signs. Absent: distended, tenderness - Skin Skin exam: Present: dry, intact Internal Medicine: Result - Labs CBC & Chem 7: 09/11/17 05:05 09/09/17 02:46 - ABG Interpretation ABG results: ABG ABG pH 7.48 pH Units (7.32-7.45) H 09/07/17 04:56 ABG pCO2 53 mmHg (35-45) H 09/07/17 04:56 ABG pO2 76 mmHg (85-104) L 09/07/17 04:56 ABG O2 Saturation 96 % (95-98) 09/07/17 04:56 PT/INR, D-dimer PT 14.4 Seconds (9.4-12.1) H 09/10/17 03:15 - Impressions Impressions Chest X-Ray 09/10/17 17:45 IMPRESSION: No acute cardiopulmonary disease. Stable elevated right hemidiaphragm with basilar volume loss. D/ / Cheikh Zacarias MD / Cheikh Zacarias MD Interpreting Provider: Cheikh Zacarias MD - VTE Documentation of Mechanical Device: Intermittent pneumatic compression device Consult Discharge Plan - Plan Referrals: Celso Simpson MD [Partnered Physician] - (web request 09/10/2017) NONE,PCP [Primary Care Provider] -
[2017-09-11] MEDS: Piperacillin/Tazobactam 3.375 GM in 0.9 % Sodium Chloride Mini Bag 100 ML IVPB SCH ×2 (01:00→12:52)
[2017-09-11] MEDS: *HR* OxyCODONE Immed Rel 5 MG TABLET PO PRN ×3 (01:57→17:46)
[2017-09-11] MEDS: ALPRAZolam 1 MG TABLET PO PRN ×2 (01:58→14:44)
[2017-09-11] MEDS: Albuterol 2.5 MG/3 ML NEBULIZER IH SCH ×4 (03:47→21:51)
[2017-09-11] MEDS: Acetylcysteine 10% 2 ML INHSOL IH SCH ×4 (03:50→21:51)
[2017-09-11] MEDS: *HR* Enoxaparin 150 MG/ML SYRINGE SQ SCH ×2 (04:58→17:47)
[2017-09-11 05:31] LABS: Basophils % 0.2 %; Eosinophils % 0.2 %; Hematocrit 43.7 % (37.5-50.1); Hemoglobin 14.1 g/dL (12.9-16.9); Immature Granulocytes % 1.8 % (0-4); Lymphocytes # 1.5 K/mcL (0.6-4.6); Lymphocytes % 11.6 %; Mean Corpuscular HGB Conc 32.3 g/dL (31.6-35.5); Mean Corpuscular Hemoglobin 28.7 pg (28.0-33.3); Mean Platelet Volume 9.3 fL (9.4-12.4); Monocytes # 0.9 K/mcL (0.0-1.3); Monocytes % 6.9 %; Platelet Count 193 K/mcL (140-400); Red Blood Count 4.91 M/mcL (4.19-5.50); Red Cell Distribution Width 13.6 % (11.5-14.5); Segmented Neutrophils % 79.3 %
[2017-09-11 05:36] LABS: INR 1.8
[2017-09-11 05:41] LABS: BUN/Creatinine Ratio 22 (6-26); Blood Urea Nitrogen 21 mg/dL (6-20); Calcium 8.7 mg/dL (8.6-10.3); Carbon Dioxide 31 mEq/L (23-29); Chloride 99 mEq/L (98-107); Glucose 171 mg/dL (70-105); Osmolality,Calculated 283 (280-300); Potassium 4.9 mEq/L (3.5-5.1); Sodium 133 mEq/L (136-145); eGFR For African Americans > 60 (> 60); eGFR For Non-African Americans > 60 (> 60)
[2017-09-11] MEDS: Gabapentin 300 MG CAPSULE PO SCH ×3 (09:23→20:53)
[2017-09-11] MEDS: predniSONE 20 MG TABLET PO SCH ×2 (09:23→14:44)
[2017-09-11] MEDS: Potassium Chloride Elixir 20 MEQ/15 ML UDC PO SCH ×2 (09:24→20:53)
[2017-09-11] MEDS: Insulin LISPRO 300 UNITS/3 ML VIAL SQ SCH ×4 (09:24→22:54)
[2017-09-11] MEDS: Benzonatate 100 MG CAPSULE PO SCH ×3 (09:24→20:53)
[2017-09-11] MEDS: Furosemide 40 MG TABLET PO SCH ×2 (09:24→17:46)
[2017-09-11] MEDS: Lisinopril 20 MG TABLET PO SCH (09:24)
--- NOTE | 2017-09-11 09:40 | Infectious Disease Progress No ---
Date of Encounter: 09/11/17 Time of Encounter: 09:39 - Assessment and Plan (1) Sepsis Current Visit: Yes Status: Acute Had 3 SIRS criteria on admission, normal heart rate this morning Likely secondary to pneumonia Qualifiers: Sepsis type: sepsis due to unspecified organism Qualified Code(s): A41.9 - Sepsis, unspecified organism (2) HCAP (healthcare-associated pneumonia) Current Visit: No Status: Acute Causative organism not clear. CT of the chest reviewed Respiratory infection panel did not detect any viruses Sputum culture was contaminated with over 25 epithelial cells per low power field Blood cultures no growth to date Urine legionella and pneumococcal antigen not ordered In March patient had a viral pneumonia with influenza type a Patient currently is on Zosyn and Vancomycin Will discontinue abx and start on Doxy PO Repeat CXR demonstrated right lung base atelectasis Appreciate pulmonary's recommendation Bronchoscopy culture growing yeast Monitor labs and for drug toxicity (3) Poor dentition Current Visit: Yes Status: Acute Patient tells me that his teeth are breaking off and 6 months ago his tooth was aching so he tried to remove it himself with the pliers and it shattered. Facial CT with contrast showed multifocal dental disease without obvious drainable fluid (4) Holli filter in place Current Visit: No Status: Chronic (5) Obesity (BMI 30-39.9) Current Visit: No Status: Chronic (6) Acute respiratory failure with hypoxia Current Visit: No Status: Acute (7) Supratherapeutic INR Current Visit: Yes Status: Acute (8) Recurrent pneumonia Current Visit: Yes Status: Acute (9) Factor V Leiden Current Visit: Yes Status: Acute - Subjective Interval history: Pt seen and examined. He states his breathing is still labored and has a non- productive cough but states he overall is slightly better today. He denies fever , chills sweats but states he has been nauseous from coughing so much. Denies any hemoptysis, constipation or diarrhea. Infect Dis PN-Objective Data - Labs CBC & Chem 7: 09/11/17 05:05 09/11/17 05:05 Labs: Laboratory Results - last 24 hr 09/10/17 09/10/17 09/10/17 07:16 11:34 16:14 WBC RBC Hgb Hct MCV MCH MCHC RDW Plt Count MPV Immature Gran % Seg Neutrophils % Lymphocytes % Monocytes % Eosinophils % Basophils % Neutrophils # Lymphocytes # Monocytes # Eosinophils # Basophils # PT INR Sodium Potassium Chloride Carbon Dioxide BUN Creatinine Est GFR ( Amer) Est GFR (Non-Af Amer) BUN/Creatinine Ratio Glucose POC Glucose 106 H 126 H 99 Calculated Osmolality Calcium 09/10/17 09/11/17 09/11/17 19:41 05:05 05:05 WBC 12.6 H RBC 4.91 Hgb 14.1 Hct 43.7 MCV 89.0 MCH 28.7 MCHC 32.3 RDW 13.6 Plt Count 193 MPV 9.3 L Immature Gran % 1.8 Seg Neutrophils % 79.3 Lymphocytes % 11.6 Monocytes % 6.9 Eosinophils % 0.2 Basophils % 0.2 Neutrophils # 10.0 H Lymphocytes # 1.5 Monocytes # 0.9 Eosinophils # 0.0 Basophils # 0.0 PT 20.0 H INR 1.8 Sodium Potassium Chloride Carbon Dioxide BUN Creatinine Est GFR ( Amer) Est GFR (Non-Af Amer) BUN/Creatinine Ratio Glucose POC Glucose 156 H Calculated Osmolality Calcium 09/11/17 05:05 WBC RBC Hgb Hct MCV MCH MCHC RDW Plt Count MPV Immature Gran % Seg Neutrophils % Lymphocytes % Monocytes % Eosinophils % Basophils % Neutrophils # Lymphocytes # Monocytes # Eosinophils # Basophils # PT INR Sodium 133 L Potassium 4.9 Chloride 99 Carbon Dioxide 31 H BUN 21 H Creatinine 0.94 Est GFR ( Amer) > 60 Est GFR (Non-Af Amer) > 60 BUN/Creatinine Ratio 22 Glucose 171 H POC Glucose Calculated Osmolality 283 Calcium 8.7 Cultures: Cultures 09/06/17 13:25 Acid Fast Stain - Final Right Middle Lobe Lung 09/06/17 13:25 Gram Stain - Final Right Middle Lobe Lung Respiratory Culture - Final Mora albicans 09/05/17 15:33 Legionella Antigen - Final Urine,Clean Catch Streptococcus pneumoniae Antigen (M - Final 08/31/17 19:33 Sputum Culture - Final Sputum Serology 09/06/17 09/03/17 09/01/17 Range/Units 13:25 15:58 13:20 Fluid Source rml bal Fluid Volume 15 mL Fluid Appearance Cloudy A (Clear) Fluid RBC 0.075 (No Ref Range) M/mcL Fld Tot Nucleated Cell 6624 (No Ref Range) TNC/mcL Fluid Seg Neutrophil % 76.0 % Fluid Lymphocytes % 12.0 % Fluid Monocytes % 8.0 % Fluid Other Cells % 4.0 % Nasal Screen MRSA (PCR) Negative (Negative) Chlamy pneumoniae PCR Not Detected (Not Detect) Adenovirus (PCR) Not Detected (Not Detect) B. pertussis DNA (PCR) Not Detected (Not Detect) B.parapertussis DNA PCR Not Detected (Not Detect) Coronavirus OC43 (PCR) Not Detected (Not Detect) Coronavirus HKU1 (PCR) Not Detected (Not Detect) Coronavirus 229E (PCR) Not Detected (Not Detect) Coronavirus NL63 (PCR) Not Detected (Not Detect) Human Metapneumovir PCR Not Detected (Not Detect) Influenza A (H1) PCR Not Detected (Not Detect) Influ A (H1N1/09) PCR Not Detected (Not Detect) Influenza A (H3) PCR Not Detected (Not Detect) Influenza A Untype (PCR) Not Detected (Not Detect) Influenza Type B (PCR) Not Detected (Not Detect) M.pneumoniae DNA (PCR) Not Detected (Not Detect) Parainfluenza 1 (PCR) Not Detected (Not Detect) Parainfluenza 2 (PCR) Not Detected (Not Detect) Parainfluenza 3 (PCR) Not Detected (Not Detect) Parainfluenza 4 (PCR) Not Detected (Not Detect) RSV (PCR) Not Detected (Not Detect) Entero/Rhino (PCR) Not Detected (Not Detect) - Impressions Impressions Chest X-Ray 09/10/17 17:45 IMPRESSION: No acute cardiopulmonary disease. Stable elevated right hemidiaphragm with basilar volume loss. D/ / Cheikh Zacarias MD / Cheikh Zacarias MD Interpreting Provider: Cheikh Zacarias MD Exam - Constitutional Vitals: Temp Pulse Resp BP Pulse Ox 98.2 F 72 16 127/72 97 09/11/17 07:03 09/11/17 07:03 09/11/17 07:03 09/11/17 07:03 09/11/17 07:03 General appearance: cooperative, no acute distress - Head Head exam: Present: atraumatic, normocephalic - Respiratory Respiratory exam: Present: wheezes - Cardiovascular Cardiovascular exam: Present: RRR. Absent: irregular rhythm, systolic murmur, tachycardia - GI/Abdominal GI/Abdominal exam: Present: normal bowel sounds, soft. Absent: tenderness - Extremities Exam Extremities exam: Present: pedal edema - VTE Documentation of Mechanical Device: Intermittent pneumatic compression device Consult Discharge Plan - Plan Referrals: Celso Simpson MD [Partnered Physician] - (web request 09/10/2017) NONE,PCP [Primary Care Provider] - - Attending Attestation I examined this patient and my medical decision-making was reviewed with the Resident Physician. I agree with the documented findings, disposition and treatment plan as described except to the extent set forth below.
[2017-09-11] MEDS: Budesonide Neb 0.5 MG/2 ML IH SCH ×2 (10:21→21:51)
[2017-09-11] MEDS: Tiotropium 18 MCG inhalation IH SCH (10:25)
[2017-09-11] MEDS: Ringers Solution, Lactated 1,000 ML IVC SCH (12:51)
[2017-09-11] MEDS ORDERED: D5% in Water 1,000 ML IVC PRN (13:21)
[2017-09-11] MEDS ORDERED: *HR* Dextrose 50 % in Water (Syg) 50 ML SYRINGE IVP PRN (13:21)
[2017-09-11] MEDS ORDERED: Dextrose Gel 15 GM/37.5 ML TUBE PO PRN ×2 (13:21)
[2017-09-11] MEDS ORDERED: Warfarin perPT PO PRN (14:30)
[2017-09-11] MEDS ORDERED: *HR* Warfarin 5 MG TABLET PO ONE (18:00)
[2017-09-11] MEDS: Doxycycline 100 MG CAPSULE PO SCH (20:53)
--- NOTE | 2017-09-11 23:21 | Internal Med Progress Note ---
Date of Encounter: 09/11/17 Time of Encounter: 23:21 - Assessment and plan (1) HCAP (healthcare-associated pneumonia) Current Visit: No Status: Acute (2) COPD exacerbation Current Visit: No Status: Acute (3) Sepsis Current Visit: Yes Status: Resolved Qualifiers: Sepsis type: sepsis due to unspecified organism Qualified Code(s): A41.9 - Sepsis, unspecified organism (4) Chronic respiratory failure with hypoxia and hypercapnia Current Visit: Yes Status: Chronic (5) Factor V Leiden Current Visit: Yes Status: Acute - Time Spent With Patient Total time spent is greater than 50% in coordination of care (as documented) at patient's floor/unit and/or counseling patient: 25 - 35 minutes - Subjective Interval history: .. He feels weak. He continues to complain of coughing. He feels his secretions are looser. He does have off-and-on wheezing; especially when coughing. Denies chest pain. He denies resting dyspnea; on 3 L/min oxygen. He is able to ambulate on his own. However, it is slow. OBJECTIVE: Skin: Free of rash and discoloration ENMT: Oral/pharyngeal mucosa is normal in appearance. Eyes: Sclera is white. There is no discharge from eyes. Respiratory: Normal breath sounds. I can hear a few bilateral rhonchi and wheezes. CV: Heart is regular; no gallop or murmur. GI: Abdomen is soft and not tender. There is no palpable mass or visceromegaly. Neuro: There is no focal deficits. ASSESSMENT AND PLAN: .. Pneumonia/COPD exacerbation. His sepsis resolves.See notes from infectious diseases. He had bronchoscopy done on September 06. The cultures are not revealing any particular organisms. We will continue IV vancomycin/IV Zosyn. We will decrease his prednisone to 40 mg every morning. We will continue Spiriva. We will continue Mucomyst inhalations and when necessary albuterol inhalations. He has underlying chronic respiratory failure with hypoxia and hypercapnia. The acute respiratory component subsided. He is using 3 L/min oxygen. It is his baseline at home. Factor V Leiden. The patient has been restarted on warfarin. It is managed by our pharmacy. He gets a bridging Lovenox. His pro time from today is 1.8 INR. DISPOSITION: Tentative discharge is in 23 days. - Constitutional Vitals: Temp Pulse Resp BP Pulse Ox 98.0 F 63 17 130/76 96 09/11/17 20:29 09/11/17 20:29 09/11/17 21:51 09/11/17 20:29 09/11/17 21:51 General appearance: Present: A&O X 3, no acute distress Internal Medicine: Result - Labs CBC & Chem 7: 09/11/17 05:05 09/11/17 05:05 Labs: Short CBC 09/11/17 Range/Units 05:05 WBC 12.6 H (4.3-11.1) K/mcL Hgb 14.1 (12.9-16.9) g/dL Hct 43.7 (37.5-50.1) % Plt Count 193 (140-400) K/mcL Neutrophils # 10.0 H (1.6-8.9) K/mcL BMP 09/11/17 05:05 Sodium 133 L Potassium 4.9 Chloride 99 Carbon Dioxide 31 H BUN 21 H Creatinine 0.94 Glucose 171 H Calcium 8.7 - ABG Interpretation ABG results: ABG ABG pH 7.48 pH Units (7.32-7.45) H 09/07/17 04:56 ABG pCO2 53 mmHg (35-45) H 09/07/17 04:56 ABG pO2 76 mmHg (85-104) L 09/07/17 04:56 ABG O2 Saturation 96 % (95-98) 09/07/17 04:56 PT/INR, D-dimer PT 20.0 Seconds (9.4-12.1) H 09/11/17 05:05 - VTE Documentation of Mechanical Device: Intermittent pneumatic compression device Consult Discharge Plan - Plan Referrals: Celso Simpson MD [Partnered Physician] - (web request 09/10/2017) NONE,PCP [Primary Care Provider] -
[2017-09-12] MEDS: ALPRAZolam 1 MG TABLET PO PRN ×3 (00:09→19:57)
[2017-09-12] MEDS: tiZANidine 4 MG TABLET PO PRN ×2 (00:09→19:56)
[2017-09-12] MEDS: *HR* OxyCODONE Immed Rel 5 MG TABLET PO PRN ×3 (00:09→19:56)
[2017-09-12] MEDS: Albuterol 2.5 MG/3 ML NEBULIZER IH SCH ×4 (03:40→22:32)
[2017-09-12] MEDS: Acetylcysteine 10% 2 ML INHSOL IH SCH ×4 (03:41→22:32)
[2017-09-12] MEDS: *HR* Enoxaparin 150 MG/ML SYRINGE SQ SCH ×2 (04:55→16:19)
[2017-09-12 05:06] LABS: INR 1.9; Prothrombin Time 20.8 Seconds (9.4-12.1)
[2017-09-12] MEDS: Insulin LISPRO 300 UNITS/3 ML VIAL SQ SCH ×4 (07:42→20:00)
[2017-09-12] MEDS: Potassium Chloride Elixir 20 MEQ/15 ML UDC PO SCH ×2 (07:52→20:00)
[2017-09-12] MEDS: Lisinopril 20 MG TABLET PO SCH (07:52)
[2017-09-12] MEDS: predniSONE 20 MG TABLET PO SCH (07:52)
[2017-09-12] MEDS: Furosemide 40 MG TABLET PO SCH ×2 (07:52→16:18)
[2017-09-12] MEDS: Benzonatate 100 MG CAPSULE PO SCH ×3 (07:52→19:58)
[2017-09-12] MEDS: Gabapentin 300 MG CAPSULE PO SCH ×3 (07:52→19:58)
[2017-09-12] MEDS: Doxycycline 100 MG CAPSULE PO SCH ×2 (07:53→19:57)
--- NOTE | 2017-09-12 09:16 | Infectious Disease Progress No ---
Date of Encounter: 09/12/17 Time of Encounter: 09:10 - Assessment and Plan (1) Sepsis Current Visit: Yes Status: Resolved Had 3 SIRS criteria on admission, normal heart rate this morning Likely secondary to pneumonia Qualifiers: Sepsis type: sepsis due to unspecified organism Qualified Code(s): A41.9 - Sepsis, unspecified organism (2) HCAP (healthcare-associated pneumonia) Current Visit: Yes Status: Acute Causative organism not clear. CT of the chest reviewed Respiratory infection panel did not detect any viruses Sputum culture was contaminated with over 25 epithelial cells per low power field Blood cultures no growth to date Urine legionella and pneumococcal antigen not ordered In March patient had a viral pneumonia with influenza type a Patient previously on Zosyn and Vancomycin Start Doxy PO 09/11 Repeat CXR demonstrated right lung base atelectasis Appreciate pulmonary's recommendation Bronchoscopy culture growing yeast Monitor labs and for drug toxicity (3) Poor dentition Current Visit: Yes Status: Acute Patient tells me that his teeth are breaking off and 6 months ago his tooth was aching so he tried to remove it himself with the pliers and it shattered. Facial CT with contrast showed multifocal dental disease without obvious drainable fluid (4) Holli filter in place Current Visit: No Status: Chronic (5) Obesity (BMI 30-39.9) Current Visit: Yes Status: Chronic (6) Acute respiratory failure with hypoxia Current Visit: No Status: Acute (7) Supratherapeutic INR Current Visit: Yes Status: Acute (8) Recurrent pneumonia Current Visit: Yes Status: Acute (9) Factor V Leiden Current Visit: Yes Status: Acute - Subjective Interval history: Pt seen and examined. He states he is doing better overall but says his breathing is still labored and he is feeling congested in his chest but still isn't able to cough up any sputum. Denies any fever, chills, nausea, vomiting or diarrhea. Infect Dis PN-Objective Data - Labs CBC & Chem 7: 09/11/17 05:05 09/11/17 05:05 Labs: Laboratory Results - last 24 hr 09/11/17 09/11/17 09/11/17 07:05 11:09 15:40 PT INR POC Glucose 167 H 97 114 H Specimen Rejected 09/11/17 09/12/17 09/12/17 20:31 03:53 04:32 PT 20.8 H INR 1.9 POC Glucose 129 H Specimen Rejected Volume Cultures: Cultures 09/06/17 13:25 Fungal Culture - Preliminary Right Middle Lobe Lung Yeast Species 09/06/17 13:25 Acid Fast Stain - Final Right Middle Lobe Lung 09/06/17 13:25 Gram Stain - Final Right Middle Lobe Lung Respiratory Culture - Final Mora albicans 09/05/17 15:33 Legionella Antigen - Final Urine,Clean Catch Streptococcus pneumoniae Antigen (M - Final 08/31/17 19:33 Sputum Culture - Final Sputum Serology 09/06/17 09/03/17 09/01/17 Range/Units 13:25 15:58 13:20 Fluid Source rml bal Fluid Volume 15 mL Fluid Appearance Cloudy A (Clear) Fluid RBC 0.075 (No Ref Range) M/mcL Fld Tot Nucleated Cell 6624 (No Ref Range) TNC/mcL Fluid Seg Neutrophil % 76.0 % Fluid Lymphocytes % 12.0 % Fluid Monocytes % 8.0 % Fluid Other Cells % 4.0 % Nasal Screen MRSA (PCR) Negative (Negative) Chlamy pneumoniae PCR Not Detected (Not Detect) Adenovirus (PCR) Not Detected (Not Detect) B. pertussis DNA (PCR) Not Detected (Not Detect) B.parapertussis DNA PCR Not Detected (Not Detect) Coronavirus OC43 (PCR) Not Detected (Not Detect) Coronavirus HKU1 (PCR) Not Detected (Not Detect) Coronavirus 229E (PCR) Not Detected (Not Detect) Coronavirus NL63 (PCR) Not Detected (Not Detect) Human Metapneumovir PCR Not Detected (Not Detect) Influenza A (H1) PCR Not Detected (Not Detect) Influ A (H1N1/09) PCR Not Detected (Not Detect) Influenza A (H3) PCR Not Detected (Not Detect) Influenza A Untype (PCR) Not Detected (Not Detect) Influenza Type B (PCR) Not Detected (Not Detect) M.pneumoniae DNA (PCR) Not Detected (Not Detect) Parainfluenza 1 (PCR) Not Detected (Not Detect) Parainfluenza 2 (PCR) Not Detected (Not Detect) Parainfluenza 3 (PCR) Not Detected (Not Detect) Parainfluenza 4 (PCR) Not Detected (Not Detect) RSV (PCR) Not Detected (Not Detect) Entero/Rhino (PCR) Not Detected (Not Detect) Exam - Constitutional Vitals: Temp Pulse Resp BP Pulse Ox 98.4 F 91 19 109/75 98 09/12/17 07:16 09/12/17 07:43 09/12/17 07:16 09/12/17 07:16 09/12/17 08:08 General appearance: cooperative, no acute distress, obese, no febrile - Head Head exam: Present: atraumatic, normocephalic - Respiratory Respiratory exam: Present: chest wall tenderness, wheezes. Absent: accessory muscle use, respiratory distress - Cardiovascular Cardiovascular exam: Present: RRR. Absent: irregular rhythm, systolic murmur, tachycardia - GI/Abdominal GI/Abdominal exam: Present: normal bowel sounds, soft. Absent: tenderness - Extremities Exam Extremities exam: Absent: pedal edema - VTE Documentation of Mechanical Device: Intermittent pneumatic compression device Consult Discharge Plan - Plan Referrals: Celso Simpson MD [Partnered Physician] - (web request 09/10/2017) NONE,PCP [Primary Care Provider] - - Attending Attestation I examined this patient and my medical decision-making was reviewed with the Resident Physician. I agree with the documented findings, disposition and treatment plan as described except to the extent set forth below.
[2017-09-12] MEDS: Tiotropium 18 MCG inhalation IH SCH (09:20)
[2017-09-12] MEDS: Budesonide Neb 0.5 MG/2 ML IH SCH ×2 (09:20→22:32)
--- NOTE | 2017-09-12 11:53 | Internal Med Progress Note ---
Date of Encounter: 09/12/17 Time of Encounter: 11:51 - Assessment and plan (1) Dyspnea Current Visit: Yes Status: Acute Assessment and plan: Due to COPDE and PNA Resolved Qualifiers: Dyspnea type: shortness of breath Qualified Code(s): R06.02 - Shortness of breath; R06.00 - Dyspnea, unspecified; R06.01 - Orthopnea (2) Atypical chest pain Current Visit: Yes Status: Resolved (3) Factor V Leiden Current Visit: Yes Status: Acute Assessment and plan: INR sub-therapeutic On LOvenox and warfarin, pharm to dose, continue same Monitor INR (4) Pneumonia Current Visit: Yes Status: Acute Assessment and plan: Previously on Zosyn and Vanco No growth on cultures fungus on BAL, no indication for trt Continue Doxycycline po Qualifiers: Pneumonia type: due to unspecified organism Laterality: right Lung location: lower lobe of lung Qualified Code(s): J18.1 - Lobar pneumonia, unspecified organism (5) Sepsis Current Visit: Yes Status: Resolved Assessment and plan: resolved Blood cultures negative Qualifiers: Sepsis type: sepsis due to unspecified organism Qualified Code(s): A41.9 - Sepsis, unspecified organism (6) COPD (chronic obstructive pulmonary disease) Current Visit: Yes Status: Resolved Assessment and plan: Now at baseline Continue to taper steroids Qualifiers: COPD type: COPD with acute exacerbation Qualified Code(s): J44.1 - Chronic obstructive pulmonary disease with (acute) exacerbation (7) DVT prophylaxis Current Visit: Yes Status: Acute Assessment and plan: On warfarin and therpaeutic lovenox (8) Obesity (BMI 30-39.9) Current Visit: Yes Status: Chronic Assessment and plan: lifestyle modification - Time Spent With Patient Total time spent is greater than 50% in coordination of care (as documented) at patient's floor/unit and/or counseling patient: - Subjective Interval history: Seen and examined at bedside Has multiple non-specific complains, has made significant improvement, now on po antibiotics He was admitted and managed for sepsis secondar to HCAP, COPDE He has a PMH of Chronic resp failure with hypoxia and hypercapnia, he is on his baseline O2 requirement, He also has Factor V Leiden and is on Warfarin and LOvenox Also noted to be receiving opiates q6h non-stp, will begin to wean off opiates - Constitutional Vitals: Temp Pulse Resp BP Pulse Ox 98.7 F 62 18 98/56 95 09/12/17 11:19 09/12/17 11:19 09/12/17 11:19 09/12/17 11:19 09/12/17 11:32 General appearance: Present: A&O X 3, no acute distress, obese - Head Head exam: Present: atraumatic, normocephalic - Eye Eye exam: Present: PERRL, conjuntiva pink, sclera anicteric Pupils: Present: PERRL - Neck Neck exam general surgery: Present: supple, trachea midline. Absent: lymphadenopathy - Respiratory Respiratory exam: Present: CTAB. Absent: accessory muscle use, rales, rhonchi, wheezes - Cardiovascular Cardiovascular exam: Present: RRR, +S1, +S2. Absent: diastolic murmur, gallop, rubs, systolic murmur - GI/Abdominal GI/Abdominal exam: Present: normal bowel sounds, soft, no peritoneal signs. Absent: distended, tenderness - Extremities Exam Extremities exam: Present: warm, radial pulses palpable and symmetrical. Absent : calf tenderness, cyanotic, pedal edema - Neurological Exam Neurological exam: Present: alert, CN II-XII intact, oriented X3, no focal deficits. Absent: pronater drift, facial droop, speech deficit - Skin Skin exam: Present: dry, intact Internal Medicine: Result - Labs CBC & Chem 7: 09/11/17 05:05 09/11/17 05:05 - ABG Interpretation ABG results: ABG ABG pH 7.48 pH Units (7.32-7.45) H 09/07/17 04:56 ABG pCO2 53 mmHg (35-45) H 09/07/17 04:56 ABG pO2 76 mmHg (85-104) L 09/07/17 04:56 ABG O2 Saturation 96 % (95-98) 09/07/17 04:56 PT/INR, D-dimer PT 20.8 Seconds (9.4-12.1) H 09/12/17 04:32 - VTE Documentation of Mechanical Device: Intermittent pneumatic compression device Consult Discharge Plan - Plan Referrals: Celso Simpson MD [Partnered Physician] - (web request 09/10/2017) NONE,PCP [Primary Care Provider] -
[2017-09-12] MEDS ORDERED: *HR* Warfarin 7.5 MG TABLET PO ONE (18:00)
[2017-09-13] MEDS: Acetylcysteine 10% 2 ML INHSOL IH SCH ×2 (03:46→10:30)
[2017-09-13] MEDS: Albuterol 2.5 MG/3 ML NEBULIZER IH SCH ×2 (03:46→10:30)
[2017-09-13] MEDS: *HR* Enoxaparin 150 MG/ML SYRINGE SQ SCH (05:49)
[2017-09-13] MEDS: predniSONE 20 MG TABLET PO SCH (07:45)
[2017-09-13] MEDS: Lisinopril 20 MG TABLET PO SCH (07:45)
[2017-09-13] MEDS: Benzonatate 100 MG CAPSULE PO SCH (07:45)
[2017-09-13] MEDS: Doxycycline 100 MG CAPSULE PO SCH (07:45)
[2017-09-13] MEDS: *HR* OxyCODONE Immed Rel 5 MG TABLET PO PRN (07:45)
[2017-09-13] MEDS: Gabapentin 300 MG CAPSULE PO SCH (07:45)
[2017-09-13] MEDS: Furosemide 40 MG TABLET PO SCH (07:46)
[2017-09-13] MEDS: Potassium Chloride Elixir 20 MEQ/15 ML UDC PO SCH (07:46)
[2017-09-13] MEDS: ALPRAZolam 1 MG TABLET PO PRN (07:50)
[2017-09-13 08:05] LABS: Basophils % 0.1 %; Eosinophils # 0.1 K/mcL (0.0-0.6); Eosinophils % 0.3 %; Hematocrit 46.7 % (37.5-50.1); Hemoglobin 15.4 g/dL (12.9-16.9); Immature Granulocytes % 1.6 % (0-4); Lymphocytes # 4.8 K/mcL (0.6-4.6); Lymphocytes % 27.7 %; Mean Corpuscular Hemoglobin 29.4 pg (28.0-33.3); Mean Corpuscular Volume 89.1 fL (83.0-100.0); Mean Platelet Volume 9.1 fL (9.4-12.4); Monocytes % 11.8 %; Neutrophils # 10.1 K/mcL (1.6-8.9); Platelet Count 210 K/mcL (140-400); Red Blood Count 5.24 M/mcL (4.19-5.50); Red Cell Distribution Width 13.5 % (11.5-14.5); Segmented Neutrophils % 58.5 %
[2017-09-13 08:18] LABS: Prothrombin Time 21.3 Seconds (9.4-12.1)
[2017-09-13 08:23] LABS: BUN/Creatinine Ratio 27 (6-26); Blood Urea Nitrogen 29 mg/dL (6-20); Calcium 9.3 mg/dL (8.6-10.3); Carbon Dioxide 31 mEq/L (23-29); Chloride 96 mEq/L (98-107); Glucose 120 mg/dL (70-105); Osmolality,Calculated 283 (280-300); Potassium 4.5 mEq/L (3.5-5.1); Sodium 133 mEq/L (136-145); eGFR For African Americans > 60 (> 60); eGFR For Non-African Americans > 60 (> 60)
[2017-09-13] MEDS: Insulin LISPRO 300 UNITS/3 ML VIAL SQ SCH (08:54)
--- NOTE | 2017-09-13 09:14 | Infectious Disease Progress No ---
Date of Encounter: 09/13/17 Time of Encounter: 09:12 - Assessment and Plan (1) Sepsis Current Visit: Yes Status: Resolved Had 3 SIRS criteria on admission, normal heart rate this morning Likely secondary to pneumonia Qualifiers: Sepsis type: sepsis due to unspecified organism Qualified Code(s): A41.9 - Sepsis, unspecified organism (2) HCAP (healthcare-associated pneumonia) Current Visit: Yes Status: Acute Causative organism not clear. CT of the chest reviewed Respiratory infection panel did not detect any viruses Sputum culture was contaminated with over 25 epithelial cells per low power field Blood cultures no growth to date Urine legionella and pneumococcal antigen not ordered In March patient had a viral pneumonia with influenza type a Patient previously on Zosyn and Vancomycin Start Doxy PO 09/11 Repeat CXR demonstrated right lung base atelectasis Appreciate pulmonary's recommendation Bronchoscopy culture growing yeast Monitor labs and for drug toxicity (3) Poor dentition Current Visit: Yes Status: Acute Patient tells me that his teeth are breaking off and 6 months ago his tooth was aching so he tried to remove it himself with the pliers and it shattered. Facial CT with contrast showed multifocal dental disease without obvious drainable fluid (4) Holli filter in place Current Visit: No Status: Chronic (5) Obesity (BMI 30-39.9) Current Visit: Yes Status: Chronic (6) Acute respiratory failure with hypoxia Current Visit: No Status: Acute (7) Supratherapeutic INR Current Visit: Yes Status: Acute (8) Recurrent pneumonia Current Visit: Yes Status: Acute (9) Factor V Leiden Current Visit: Yes Status: Acute - Subjective Interval history: Pt seen and examined. He states his breathing is better today and he did cough up some brown sputum for the first time. Still has chest congestion and some difficulty breathing with exertion but this has improved. Denies any fever, nausea, vomiting, or diarrhea. Infect Dis PN-Objective Data - Labs CBC & Chem 7: 09/13/17 07:56 09/13/17 07:56 Labs: Laboratory Results - last 24 hr 09/12/17 09/12/17 09/12/17 07:36 11:16 16:00 WBC RBC Hgb Hct MCV MCH MCHC RDW Plt Count MPV Immature Gran % Seg Neutrophils % Lymphocytes % Monocytes % Eosinophils % Basophils % Neutrophils # Lymphocytes # Monocytes # Eosinophils # Basophils # PT INR Sodium Potassium Chloride Carbon Dioxide BUN Creatinine Est GFR ( Amer) Est GFR (Non-Af Amer) BUN/Creatinine Ratio Glucose POC Glucose 91 123 H 159 H Calculated Osmolality Calcium 09/12/17 09/13/17 09/13/17 19:25 07:56 07:56 WBC 17.2 H RBC 5.24 Hgb 15.4 Hct 46.7 MCV 89.1 MCH 29.4 MCHC 33.0 RDW 13.5 Plt Count 210 MPV 9.1 L Immature Gran % 1.6 Seg Neutrophils % 58.5 Lymphocytes % 27.7 Monocytes % 11.8 Eosinophils % 0.3 Basophils % 0.1 Neutrophils # 10.1 H Lymphocytes # 4.8 H Monocytes # 2.0 H Eosinophils # 0.1 Basophils # 0.0 PT 21.3 H INR 2.0 Sodium Potassium Chloride Carbon Dioxide BUN Creatinine Est GFR ( Amer) Est GFR (Non-Af Amer) BUN/Creatinine Ratio Glucose POC Glucose 103 H Calculated Osmolality Calcium 09/13/17 07:56 WBC RBC Hgb Hct MCV MCH MCHC RDW Plt Count MPV Immature Gran % Seg Neutrophils % Lymphocytes % Monocytes % Eosinophils % Basophils % Neutrophils # Lymphocytes # Monocytes # Eosinophils # Basophils # PT INR Sodium 133 L Potassium 4.5 Chloride 96 L Carbon Dioxide 31 H BUN 29 H Creatinine 1.08 Est GFR ( Amer) > 60 Est GFR (Non-Af Amer) > 60 BUN/Creatinine Ratio 27 H Glucose 120 H POC Glucose Calculated Osmolality 283 Calcium 9.3 Cultures: Cultures 09/06/17 13:25 Fungal Culture - Preliminary Right Middle Lobe Lung Yeast Species 09/06/17 13:25 Acid Fast Stain - Final Right Middle Lobe Lung 09/06/17 13:25 Gram Stain - Final Right Middle Lobe Lung Respiratory Culture - Final Mora albicans 09/05/17 15:33 Legionella Antigen - Final Urine,Clean Catch Streptococcus pneumoniae Antigen (M - Final 08/31/17 19:33 Sputum Culture - Final Sputum Serology 09/06/17 09/03/17 09/01/17 Range/Units 13:25 15:58 13:20 Fluid Source rml bal Fluid Volume 15 mL Fluid Appearance Cloudy A (Clear) Fluid RBC 0.075 (No Ref Range) M/mcL Fld Tot Nucleated Cell 6624 (No Ref Range) TNC/mcL Fluid Seg Neutrophil % 76.0 % Fluid Lymphocytes % 12.0 % Fluid Monocytes % 8.0 % Fluid Other Cells % 4.0 % Nasal Screen MRSA (PCR) Negative (Negative) Chlamy pneumoniae PCR Not Detected (Not Detect) Adenovirus (PCR) Not Detected (Not Detect) B. pertussis DNA (PCR) Not Detected (Not Detect) B.parapertussis DNA PCR Not Detected (Not Detect) Coronavirus OC43 (PCR) Not Detected (Not Detect) Coronavirus HKU1 (PCR) Not Detected (Not Detect) Coronavirus 229E (PCR) Not Detected (Not Detect) Coronavirus NL63 (PCR) Not Detected (Not Detect) Human Metapneumovir PCR Not Detected (Not Detect) Influenza A (H1) PCR Not Detected (Not Detect) Influ A (H1N1/09) PCR Not Detected (Not Detect) Influenza A (H3) PCR Not Detected (Not Detect) Influenza A Untype (PCR) Not Detected (Not Detect) Influenza Type B (PCR) Not Detected (Not Detect) M.pneumoniae DNA (PCR) Not Detected (Not Detect) Parainfluenza 1 (PCR) Not Detected (Not Detect) Parainfluenza 2 (PCR) Not Detected (Not Detect) Parainfluenza 3 (PCR) Not Detected (Not Detect) Parainfluenza 4 (PCR) Not Detected (Not Detect) RSV (PCR) Not Detected (Not Detect) Entero/Rhino (PCR) Not Detected (Not Detect) Exam - Constitutional Vitals: Temp Pulse Resp BP Pulse Ox 98.0 F 58 16 114/75 97 09/13/17 07:19 09/13/17 07:19 09/13/17 07:19 09/13/17 07:19 09/13/17 07:59 General appearance: cooperative, no acute distress, no febrile - Head Head exam: Present: atraumatic, normocephalic - Respiratory Respiratory exam: Present: wheezes (mild). Absent: decreased breath sounds, rales - Cardiovascular Cardiovascular exam: Present: RRR. Absent: irregular rhythm, systolic murmur, tachycardia - GI/Abdominal GI/Abdominal exam: Present: normal bowel sounds, soft. Absent: tenderness - Extremities Exam Extremities exam: Absent: pedal edema - VTE Documentation of Mechanical Device: Intermittent pneumatic compression device Consult Discharge Plan - Plan Referrals: Celso Simpson MD [Partnered Physician] - (web request 09/10/2017) NONE,PCP [Primary Care Provider] -
[2017-09-13] MEDS: Budesonide Neb 0.5 MG/2 ML IH SCH (10:30)
[2017-09-13] MEDS: Tiotropium 18 MCG inhalation IH SCH (10:31)
--- NOTE | 2017-09-13 10:51 | Discharge Summary ---
- NOTES TO OUTPATIENT PROVIDER Notes to Outpatient Provider: Admitted and managed for sepsis secondary to HCAP , has received 13 days of antibiotics in-patient , discharged on doxycycline to complete course at home, also discharged on prednisone taper, continue other medications at home. Follow up with PCP and Pumonologist Orders not resulted at time of discharge: Pending orders 09/06/17 13:25 AFB Culture, Respiratory [TB] Routine AFB Smear [TB] Routine Fungal Culture [MYC] Routine 09/14/17 04:00 PT/INR [Prothrombin Time INR] [COAG] AM 0400 09/15/17 04:00 PT/INR [Prothrombin Time INR] [COAG] AM 0400 09/16/17 04:00 PT/INR [Prothrombin Time INR] [COAG] AM 0400 Date of Encounter: 09/13/17 Time of Encounter: 10:49 - Discharge Diagnosis (1) Dyspnea Priority: Secondary Status: Resolved Qualifiers: Dyspnea type: shortness of breath Qualified Code(s): R06.02 - Shortness of breath; R06.00 - Dyspnea, unspecified; R06.01 - Orthopnea (2) Atypical chest pain Priority: Primary Status: Resolved (3) Factor V Leiden Priority: Secondary Status: Chronic (4) Pneumonia Priority: Primary Status: Acute Qualifiers: Pneumonia type: due to unspecified organism Laterality: right Lung location: lower lobe of lung Qualified Code(s): J18.1 - Lobar pneumonia, unspecified organism (5) Sepsis Priority: Primary Status: Resolved Qualifiers: Sepsis type: sepsis due to unspecified organism Qualified Code(s): A41.9 - Sepsis, unspecified organism (6) COPD (chronic obstructive pulmonary disease) Priority: Primary Status: Resolved Qualifiers: COPD type: COPD with acute exacerbation Qualified Code(s): J44.1 - Chronic obstructive pulmonary disease with (acute) exacerbation (7) DVT prophylaxis Priority: Primary Status: Acute (8) Obesity (BMI 30-39.9) Priority: Secondary Status: Chronic (9) Chronic respiratory failure with hypoxia and hypercapnia Priority: Secondary Status: Chronic Hospital course: Mr. Oliva is a 57 year old male with PMH of chronic respiratory failure on home oxygen and BiPAP, obesity. Family being on warfarin, history of pulmonary embolism with IVC filter, diastolic CHF, COPD who presented with sepsis secondary to healthcare associated pneumonia. Workup including blood cultures yielded no growth, sputum culture was contaminated and respiratory infection panel did not detect any viruses. However, due to patient's recurrence of pneumonia, pulmonology was consulted and ordered a bronchoscopy. BAL grew Mora albicans, no bacterial growth detected. The patient has been on prednisone, and antibiotics intravenously which has been switched to doxycycline by mouth 3 days ago. His INR was supratherapeutic but has become therapeutic with lovenox and coumadin. He is seen and evaluated at the bedside this mrn, with no new complains, patient states he has stopped smoking bbut has secondary exposure, he also did complain of chronic back pain, encouraged to follow up with PCP He is discharged home on his home medications, including his home medications of warfarin, he has also been prescribed prednisone taper and few more days of doxycycline. Resume other home medications Follow up with PCP and Pulmonology Discharge discussed with: patient, nurse, case management - Time Spent with Patient Total time spent providing and/or coordinating discharge services: Greater than 30 minutes - Discharge Medications Home Medications: Gabapentin [Neurontin] 300 mg PO TID 03/27/15 [History] Omeprazole [PriLOSEC] 40 mg PO DAILY@0630 #30 capsule 08/16/15 [Rx] DULoxetine [Cymbalta] 30 mg PO DAILY 02/27/17 [History] Albuterol Sulfate [Albuterol Inhaler] 2 puff IH Q4HR PRN #1 [id number] 03/06/17 [Rx] Atorvastatin [Lipitor] 10 mg PO HS 03/23/17 [History] Lisinopril [Zestril] 20 mg PO DAILY 03/23/17 [History] Ipratropium/Albuterol Neb [Duoneb] 3 ml IH Q6H PRN 30 Days inhsol 03/31/17 [Rx] Levalbuterol Neb [Xopenex Neb] 1.25 mg IH [id number] PRN vial.neb 04/04/17 [Rx] Metoprolol [Lopressor] 12.5 mg PO BID tablet 04/04/17 [Rx] Tizanidine HCl [Zanaflex] 4 mg PO TID PRN #10 capsule 04/04/17 [Rx] Furosemide [Lasix] 40 mg PO BID #60 tablet 04/05/17 [Rx] ALPRAZolam [Xanax 1 MG Tablet] 1 mg PO BID 04/17/17 [History] Fluticasone/Salmeterol [Advair 250-50 Diskus] 1 puff IH BID 04/17/17 [History] Oxygen 2 l NS CONT 04/17/17 [History] Warfarin [Coumadin] 8 mg PO DAILY 08/30/17 [History] Allergies/Adverse Reactions: 3 Allergy/AdvReac Type Severity Reaction Status Date / Time No Known Allergies Allergy Verified 08/13/17 19:48 Date of admission: 08/30/17 16:04 Primary care physician: PCP NONE Consults: 09/02/17 08:20 Consult to Orthopedic Surgery [CONS] Routine Consulting Provider: [facility] Reason for Consult: left foot pain Call Completed: Yes 09/02/17 08:33 Consult to Podiatry [CONS] Routine Consulting Provider: [facility] Reason for Consult: left foot pain Call Completed: Yes 09/03/17 18:42 Consult to Pulmonology [CONS] Routine Consulting Provider: [facility] Reason for Consult: COPD Exacerbation. possible need bronchoscoy Call Completed: Yes 09/04/17 12:50 Consult to Cardiology [CONS] Routine Comment: Consulting Provider: Cardiology [facility] Reason for Consult: Diastolic Heart failure , Abnormal EKG Call Completed: Yes 09/04/17 12:53 Consult to Infectious Diseases [CONS] Routine Consulting Provider: Infectious Disease [facility] Reason for Consult: Recurrent PNA Time Notified: 12:54 Call Completed: Yes 09/04/17 13:00 Consult to Invasive Line Access Team [CONS] Routine Reason for Consult: multiple iv's that have went bad Line Type: EPIV Discharging clinician: Chaitanya Dennis Anticipated date of discharge: 09/13/17 - Constitutional Vitals: Temp Pulse Resp BP Pulse Ox 98.0 F 58 16 114/75 97 09/13/17 07:19 09/13/17 07:19 09/13/17 07:19 09/13/17 07:19 09/13/17 07:59 General appearance: Present: A&O X 3, no acute distress, obese - Head Head exam: Present: atraumatic, normocephalic - Eye Eye exam: Present: PERRL, conjuntiva pink, sclera anicteric Pupils: Present: PERRL - Neck Neck exam general surgery: Present: supple, trachea midline. Absent: lymphadenopathy - Respiratory Respiratory exam: Present: CTAB. Absent: accessory muscle use, rales, rhonchi, wheezes - Cardiovascular Cardiovascular exam: Present: RRR, +S1, +S2. Absent: diastolic murmur, gallop, rubs, systolic murmur - GI/Abdominal GI/Abdominal exam: Present: normal bowel sounds, soft, no peritoneal signs. Absent: distended, tenderness - Extremities Exam Extremities exam: Present: warm, radial pulses palpable and symmetrical. Absent : calf tenderness, cyanotic, pedal edema - Neurological Exam Neurological exam: Present: alert, CN II-XII intact, oriented X3, no focal deficits. Absent: pronater drift, facial droop, speech deficit - Skin Skin exam: Present: dry, intact - Patient Status Disposition: Home, Self-Care Condition: Good Functional capacity at discharge: independent ambulation Overall status at discharge: patient is back to baseline - Discharge Instructions Follow Up With: Celso Simpson MD [Partnered Physician] - (web request 09/10/2017) NONE,PCP [Primary Care Provider] - - Diet and Activity Activity: resume usual activities as tolerated, wear oxygen at all times Diet: diabetic diet, low fat, low cholesterol, low salt diet - VTE Documentation of Mechanical Device: Intermittent pneumatic compression device
[2017-09-13 10:52] VITALS: BP 92/58
[2017-09-13] MEDS ORDERED: *HR* Warfarin 7.5 MG TABLET PO ONE (18:00)
== END 2017-09-13 12:00 | disposition home or self-care (01) | DRG 853 ==
LOC: 2ANU 14:03 → EMEROO 14:03 → SUATTDRO 16:04 → 2ANU 16:06
PROVIDERS: ADMIT Family Medicine; ATTEND Internal Medicine
PROC: ENDOBRF (2017-09-06 17:30)

== ENCOUNTER 2018-06-25 13:33 | Inpatient (IN) ==
[2018-06-25] MEDS ORDERED: Isovue-370 500 ML BOTTLE IVP ONE (14:03)
[2018-06-25] MEDS ORDERED: Ipratropium/Albuterol Neb 3 ML IH ONE (14:11)
[2018-06-25] MEDS ORDERED: methylPREDNISolone 125 MG/2 ML VIAL IVP ONE (14:12)
[2018-06-25] MEDS ORDERED: *HR* FentaNYL (PF) 100 MCG/2 ML VIAL IVP ONE (14:44)
--- NOTE | 2018-06-25 14:53 | Emergency Department Note ---
Disposition Clinical Impression: Elevated troponin, Subtherapeutic international normalized ratio (INR) Pneumonia Qualifiers: Pneumonia type: due to unspecified organism Laterality: bilateral Lung location: unspecified part of lung Qualified Code(s): J18.9 - Pneumonia, unspecified organism Chest pain Qualifiers: Chest pain type: unspecified Qualified Code(s): R07.9 - Chest pain, unspecified Leukocytosis Qualifiers: Leukocytosis type: unspecified Qualified Code(s): D72.829 - Elevated white blood cell count, unspecified Disposition: Admitted As Inpatient Condition: Undetermined Referrals: Srinivas Pearce DO [Primary Care Provider] - Forms: ED Satisfaction Letter General Adult HPI - General Chief complaint: ED Shortness of Breath/Dyspnea Stated complaint: Coughin up blood x4 days/SOB Time Seen by Provider: 06/25/18 13:54 Source: patient, family Limitations: no limitations Nursing Notes Reviewed: Yes Vital Signs Reviewed: Yes - History of Present Illness HPI Narrative: Patient is a 58-year-old male with past medical history including COPD, former smoker, on 3 L of oxygen per nasal cannula at all times, factor V Leiden, history of 4 prior pulmonary embolisms, on warfarin presenting with chief complaint of hemoptysis for 3 days. The patient states for the past month, he has not been checking his PT/INR so he has been taking the same dose of warfarin. He does not know if his INR is subtherapeutic or supratherapeutic. He also states he has a history of pneumonia and was last hospitalized one year ago. 4 days ago, he complains of increased cough and shortness of breath. He felt feverish and had chills at that time but did not check his temperature. 3 days ago, he complains of coughing up dark brown sputum and this morning, he coughed up bright red blood-tinged sputum. He complains of chest pain when he coughs. He has not needed to increase his oxygen use. He is uses breathing treatments once at home. No lower extremity swelling, abdominal pain, nausea, vomiting, diarrhea. He does state he has an decreased appetite. Pain Scale: 8 - Related Data Home Medications Medication Instructions Recorded Confirmed Gabapentin [Neurontin] 300 mg PO TID 03/27/15 03/25/18 DULoxetine [Cymbalta] 30 mg PO DAILY 02/27/17 03/25/18 Atorvastatin [Lipitor] 10 mg PO HS 03/23/17 03/25/18 Lisinopril [Zestril] 20 mg PO DAILY 03/23/17 03/25/18 ALPRAZolam [Xanax 1 MG Tablet] 1 mg PO BID 04/17/17 03/25/18 Oxygen 2 l NS CONT 04/17/17 03/25/18 Warfarin [Coumadin] 10 mg PO DAILY 03/25/18 03/25/18 Previous Rx's Medication Instructions Recorded Ipratropium/Albuterol Neb [Duoneb] 3 ml IH Q6H PRN 30 Days inhsol 03/31/17 Levalbuterol Neb [Xopenex Neb] 1.25 mg IH [id number] PRN vial.neb 04/04/17 Metoprolol [Lopressor] 12.5 mg PO BID tablet 04/04/17 Tizanidine HCl [Zanaflex] 4 mg PO TID PRN #10 capsule 04/04/17 Furosemide [Lasix] 40 mg PO BID #60 tablet 04/05/17 Albuterol Sulfate [Albuterol 2 puff IH Q4HR #1 inhaler 09/25/17 Inhaler] Albuterol Sulfate [Ventolin Hfa] 18 gm IH Q4H PRN #1 hfa.aer.ad 03/25/18 PredniSONE [Deltasone] 20 mg PO DAILY #5 tablet 03/25/18 Allergies Allergy/AdvReac Type Severity Reaction Status Date / Time No Known Allergies Allergy Verified 03/07/18 15:54 All systems ED: reviewed and negative except as stated. Review of Systems: As Per HPI Constitutional: Reports: chills. Denies: fever ENT ED: Reports: congestion Cardiovascular: Reports: chest pain. Denies: palpitations Respiratory: Reports: cough, dyspnea, hemoptysis Gastrointestinal: Reports: nausea. Denies: abdominal pain, vomiting, diarrhea, melena, hematochezia Genitourinary: Denies: urgency, dysuria, hematuria Musculoskeletal: Denies: back pain Neurological: Denies: headache, weakness Past Medical History - Past Medical History Attestation: Yes The following information was validated with the patient. Source: patient Medical history: Reports: COPD, DVT, hypertension, pulmonary embolus, other Surgical history: Reports: non-contributory Psychiatric history: Reports: anxiety - Social History Smoking Status: Former smoker Smokeless Tobacco Status: Yes Alcohol use: Reports: none Drug use: Reports: none Physical Exam - General Limitations: no limitations General appearance: alert, in distress - Head Head exam: atraumatic, normocephalic, normal inspection - Eye Eye exam: Present: normal appearance, PERRL, EOMI - ENT ENT exam: normal exam, normal oropharynx, mucous membranes moist, other (no blood in posterior pharynx) - Neck Neck exam: Present: normal inspection, full ROM, trachea midline - Chest Chest inspection: Present: normal inspection, symmetric chest wall rise - Respiratory Respiratory exam: Present: other (diffuse bilateral expiratory wheezing) - Cardiovascular Cardiovascular exam: Present: regular rate, normal rhythm - Abdominal Exam Abdominal exam: Present: soft, Non-Tender. Absent: distention, guarding, rebound, rigidity - Extremities Exam Extremities exam: Present: normal inspection, normal capillary refill. Absent: pedal edema, calf tenderness - Neurological Exam Neurological exam: Present: alert, oriented X3, CN II-XII intact - Psychiatric Psychiatric exam: Present: normal affect, normal mood - Skin Skin exam: Present: warm, dry, intact Course Vital Signs Temperature 98.6 F 06/25/18 13:46 Pulse Rate 77 06/25/18 13:46 Respiratory Rate 22 06/25/18 13:46 Blood Pressure 117/74 06/25/18 13:46 O2 Sat by Pulse Oximetry 95 06/25/18 13:46 Temperature 98.6 F 06/25/18 13:46 Pulse Rate 89 06/25/18 17:37 Respiratory Rate 20 06/25/18 17:37 Blood Pressure 130/71 06/25/18 17:37 O2 Sat by Pulse Oximetry 92 06/25/18 17:37 Oxygen Delivery Oxygen Delivery Nasal Cannula Medical Decision Making - [facility] Narrative Medical decision making narrative: Patient presenting with hemoptysis, cough, chills for 3-4 days. He is not hypoxic on room air. Place the patient on 3 L of oxygen which is his home oxygen use. He is not in acute distress. No blood in his posterior oropharynx. Diffuse bilateral wheezing. Secondary to his history of multiple pulmonary embolisms we will obtain CTA chest to evaluate for pulmonary embolism versus pneumonia or other acute pathology. Will check CBC, PT/INR, PTT, BMP, troponin. Patient complaining of pain with coughing so will give fentanyl. Will give duonebs and methylprednisolone. 16:00 CTA chest with no pulmonary embolism. Results show diffuse bilateral ground- glass nodular opacities likely infectious. Lactate 1.3 and patient has leukocytosis. Will give ceftriaxone and azithromycin to cover community acquired pneumonia. Troponin elevated at 0.19 and has chest pain. Nitroglycerin was given. No elevation in the past and no history of CAD. Repeat ekg without ischemic changes, shows sinus rhythm with rate 91. Will discuss with cardiology about heparinizing the patient or trending the troponin at this time given the patient has no ischemic changes and has hemoptysis and prior history of GI bleed. 17:[address] Cantu, Cardiology. Will hold off on starting heparin or other anticoagulation at this time as the patient has no ischemic changes on ekg, has hemoptysis and history of GI bleed. Will trend the troponin. Hospitalist paged for admission. 18:[address] Cosme, hospitalist, who accepts patient for chest pain workup, elevated troponin, and pneumonia. - Medical Records Medical records reviewed: Yes I reviewed the patient's medical records. - Lab Data Lab results reviewed: Yes I reviewed the patient's lab results. Result diagrams: 06/25/18 14:36 06/25/18 14:36 Lab Results 06/25/18 06/25/18 06/25/18 Range/Units 14:36 14:36 14:36 WBC 17.2 H (4.3-11.1) K/mcL RBC 4.40 (4.19-5.50) M/mcL Hgb 13.4 (12.9-16.9) g/dL Hct 41.0 (37.5-50.1) % MCV 93.2 (83.0-100.0) fL MCH 30.5 (28.0-33.3) pg MCHC 32.7 (31.6-35.5) g/dL RDW 12.9 (11.5-14.5) % Plt Count 228 (140-400) K/mcL MPV 9.6 (9.4-12.4) fL Immature Gran % 0.5 (0-4) % Seg Neutrophils % 73.1 % Lymphocytes % 12.6 % Monocytes % 12.1 % Eosinophils % 1.5 % Basophils % 0.2 % Neutrophils # 12.6 H (1.6-8.9) K/mcL Lymphocytes # 2.2 (0.6-4.6) K/mcL Monocytes # 2.1 H (0.0-1.3) K/mcL Eosinophils # 0.3 (0.0-0.6) K/mcL Basophils # 0.0 (0.0-0.2) K/mcL PT 14.4 H (9.4-12.1) Seconds INR 1.3 APTT 28.6 (26.0-36.0) Seconds Sodium 138 (136-145) mEq/L Potassium 4.0 (3.5-5.1) mEq/L Chloride 102 (98-107) mEq/L Carbon Dioxide 30 H (23-29) mEq/L BUN 10 (6-20) mg/dL Creatinine 0.79 (0.70-1.30) mg/dL Est GFR ( Amer) > 60 (> 60) Est GFR (Non-Af Amer) > 60 (> 60) BUN/Creatinine Ratio 13 (6-26) Glucose 111 H (70-105) mg/dL Calculated Osmolality 286 (280-300) Lactic Acid (0.5-2.2) mmol/L Calcium 9.2 (8.6-10.3) mg/dL Troponin I 0.19 H* (< 0.04) ng/mL 06/25/18 Range/Units 16:36 WBC (4.3-11.1) K/mcL RBC (4.19-5.50) M/mcL Hgb (12.9-16.9) g/dL Hct (37.5-50.1) % MCV (83.0-100.0) fL MCH (28.0-33.3) pg MCHC (31.6-35.5) g/dL RDW (11.5-14.5) % Plt Count (140-400) K/mcL MPV (9.4-12.4) fL Immature Gran % (0-4) % Seg Neutrophils % % Lymphocytes % % Monocytes % % Eosinophils % % Basophils % % Neutrophils # (1.6-8.9) K/mcL Lymphocytes # (0.6-4.6) K/mcL Monocytes # (0.0-1.3) K/mcL Eosinophils # (0.0-0.6) K/mcL Basophils # (0.0-0.2) K/mcL PT (9.4-12.1) Seconds INR APTT (26.0-36.0) Seconds Sodium (136-145) mEq/L Potassium (3.5-5.1) mEq/L Chloride (98-107) mEq/L Carbon Dioxide (23-29) mEq/L BUN (6-20) mg/dL Creatinine (0.70-1.30) mg/dL Est GFR ( Amer) (> 60) Est GFR (Non-Af Amer) (> 60) BUN/Creatinine Ratio (6-26) Glucose (70-105) mg/dL Calculated Osmolality (280-300) Lactic Acid 1.3 (0.5-2.2) mmol/L Calcium (8.6-10.3) mg/dL Troponin I (< 0.04) ng/mL - Radiology Data Radiology results reviewed: Yes I reviewed the patient's radiology results. Chest CTA 06/25/18 14:03 IMPRESSION: No central or segmental pulmonary embolus. Diffuse bilateral ground-glass nodular opacities likely are infectious. Recommend follow-up in 3 months. D/ / 06/25/2018 16:21:07 Juan Santos MD / [email or web address] Interpreting Provider: Juan Santos MD - EKG Data EKG #1 EKG attestation: Yes I reviewed and interpreted this EKG. EKG results narrative: EKG from today at 1349 shows sinus rhythm with heart rate 80, low voltage, no ST elevation or depression. Attestation Statement - Attestation Attestation: Resident Attestation: I examined this patient and my medical decision making was reviewed with the Resident Physician. I agree with the documented findings, disposition and treatment plan as described except to the extent set forth below. We independently had [id number] contact with the patient. Patient presenting for further evaluation of shortness of breath and hemoptysis. Patient does have COPD and is on 3 L of oxygen at home. Patient has quit smoking but is around multiple smokers within the house. Patient's shortness breath started proximally 4 days ago. Patient states he knew he should come in sooner. Today the patient noticed some dark red blood mixed with sputum. 2 episodes. No further episodes. Patient has significant and diffuse X Tory wheezing. Patient has no significant increased work of breathing. Patient received breathing treatments as well as steroids undergo further evaluation for pneumonia as well as PE. Patient does have a history of factor V. Patient is on Coumadin. Patient does not undergo regular INR checks.
[2018-06-25 15:06] LABS: Basophils % 0.2 %; Eosinophils # 0.3 K/mcL (0.0-0.6); Eosinophils % 1.5 %; Hemoglobin 13.4 g/dL (12.9-16.9); Immature Granulocytes % 0.5 % (0-4); Lymphocytes # 2.2 K/mcL (0.6-4.6); Lymphocytes % 12.6 %; Mean Corpuscular HGB Conc 32.7 g/dL (31.6-35.5); Mean Corpuscular Hemoglobin 30.5 pg (28.0-33.3); Mean Corpuscular Volume 93.2 fL (83.0-100.0); Mean Platelet Volume 9.6 fL (9.4-12.4); Monocytes # 2.1 K/mcL (0.0-1.3); Monocytes % 12.1 %; Neutrophils # 12.6 K/mcL (1.6-8.9); Platelet Count 228 K/mcL (140-400); Red Cell Distribution Width 12.9 % (11.5-14.5); Segmented Neutrophils % 73.1 %
[2018-06-25 15:20] LABS: INR 1.3; Prothrombin Time 14.4 Seconds (9.4-12.1)
[2018-06-25 15:23] LABS: Activated Partial Thrombo Time 28.6 Seconds (26.0-36.0); BUN/Creatinine Ratio 13 (6-26); Blood Urea Nitrogen 10 mg/dL (6-20); Calcium 9.2 mg/dL (8.6-10.3); Carbon Dioxide 30 mEq/L (23-29); Chloride 102 mEq/L (98-107); Glucose 111 mg/dL (70-105); Osmolality,Calculated 286 (280-300); Sodium 138 mEq/L (136-145); eGFR For Non-African Americans > 60 (> 60)
[2018-06-25 15:33] LABS: Troponin I 0.19 ng/mL (< 0.04)
[2018-06-25] MEDS ORDERED: cefTRIAXone 1,000 MG in Water for inj. (sterile) 20 ML 10 ML IVP ONE (16:27)
[2018-06-25] MEDS ORDERED: Azithromycin 500 MG in D5% in Water 250 ML IVPB ONE (16:27)
[2018-06-25] MEDS: Nitroglycerin 0.4 MG TAB.SUBL SL PRN ×2 (16:30→16:39)
[2018-06-25] MEDS ORDERED: MORPHINE SUL Oral CONC 10 MG/0.5 ML ORAL.SYG SL ONE (18:27)
[2018-06-25] MEDS ORDERED: Acetaminophen 325 MG TABLET PO PRN (20:44)
[2018-06-25] MEDS ORDERED: Naloxone 0.4 MG/ML INJ IVP PRN (20:44)
--- NOTE | 2018-06-25 21:49 | Internal Med History&Physical ---
<Jahaira Spence - Last Filed: 06/25/18 21:46> Date of Encounter: 06/25/18 Time of Encounter: 19:00 Internal Medicine - H&P: HPI Chief complaint: shortness of breath History of present illness: Mr. Oliva is a 58 year old male with past medical history of COPD, former tobacco use with [id number] history, on 3 L of nasal cannula at home, factor V Leiden, 4 previous pulmonary embolisms, hypertension and DVT who presented to the ED complaining of shortness of breath and cough ongoing for the past 4 days. He had recent sick contacts as his had pneumonia and his daughter was also recently sick with an upper respiratory infection. He reports he also had subjective fevers and chills for the past 4 days. He has not increased his supplemental oxygen from 3 L but does feel more short of breath with exertion. His oral intake is intact. 3 days ago he noted some dark brown sputum and this morning complained of bright red blood tinged sputum. He complained of atypical chest pain around his rib cage which worsens with cough and is reproducible upon palpation. He denies any recent travel. Denying any recent weight loss or recent injuries. He denies nausea, emesis, abdominal pain, pain radiating to his back, lower extremity pain or lower extremity edema. He has family history significant for SD in his dad and factor 5 Leiden disease in his mom and sister. 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 In the ED he was noted to have elevated white blood cell count of 17.3. His tr oponin initially was elevated at 0.19, with no EKG changes; repeat was lower than 0.03. His hemoglobin is stable at 13.4. He had a CTA of the chest which was negative for any pulmonary embolism. It did show bibasilar groundglass opacities with nodular opacities. Past Med Surg Social Fam HX - Past Medical History Medical history: COPD, DVT, hypertension, pulmonary embolus, other Additional medical history: "filter" Psychiatric history: anxiety - Past Surgical History Surgical History: non-contributory Additional surgical history: PLACEMENT OF THE IVC FILTER. VASECTOMY - Social History Smoking Status: Former smoker Smokeless Tobacco Status: Yes Alcohol use: none Drug use: none - Family History Father Adopted: No Living Status: Age at : 76 Cause of : bladder ca Hx Family Cardiac Disorders: Yes (SD) Hx Family Respiratory Disorders: Yes (copd, black lung) Hx Family Cancer: Yes Hx Family GI Disorders: No Mother Adopted: No Living Status: Still Living Hx Family Respiratory Disorders: Yes (copd) Hx Family Cancer: Yes (lung, brain) Hx Family GI Disorders: Yes (colon) Internal Medicine - H&P: Meds Gabapentin [Neurontin] 300 mg PO TID 03/27/15 [History] DULoxetine [Cymbalta] 30 mg PO DAILY 02/27/17 [History] Atorvastatin [Lipitor] 10 mg PO HS 03/23/17 [History] Lisinopril [Zestril] 20 mg PO DAILY 03/23/17 [History] Ipratropium/Albuterol Neb [Duoneb] 3 ml IH Q6H PRN 30 Days inhsol 03/31/17 [Rx] Levalbuterol Neb [Xopenex Neb] 1.25 mg IH [id number] PRN vial.neb 04/04/17 [Rx] Metoprolol [Lopressor] 12.5 mg PO BID tablet 04/04/17 [Rx] Tizanidine HCl [Zanaflex] 4 mg PO TID PRN #10 capsule 04/04/17 [Rx] Furosemide [Lasix] 40 mg PO BID #60 tablet 04/05/17 [Rx] ALPRAZolam [Xanax 1 MG Tablet] 1 mg PO BID 04/17/17 [History] Oxygen 3 l NS CONT 04/17/17 [History] Albuterol Sulfate [Albuterol Inhaler] 2 puff IH Q4HR #1 inhaler 09/25/17 [Rx] Albuterol Sulfate [Ventolin Hfa] 18 gm IH Q4H PRN #1 hfa.aer.ad 03/25/18 [Rx] PredniSONE [Deltasone] 20 mg PO DAILY #5 tablet 03/25/18 [Rx] Warfarin [Coumadin] 10 mg PO DAILY 03/25/18 [History] Allergy/AdvReac Type Severity Reaction Status Date / Time No Known Allergies Allergy Verified 03/07/18 15:54 All Systems PM: A 10-system review of systems was performed and is negative for pertinent findings except as documented above in the HPI. - Constitutional Constitutional: chills, fever(s), no lethargy, no weakness - EENT Eyes: no blurry vision, no change in vision, no loss of vision Nose, mouth and throat: no dry mouth, no mouth pain, no sore throat - Cardiovascular Cardiovascular ROS IM: dyspnea, no chest pain, no diaphoresis, no orthopnea, no palpitations - Respiratory Respiratory: cough, dyspnea, hemoptysis, wheezing - Gastrointestinal Gastrointestinal: no abdominal pain, no diarrhea, no hematemesis, no nausea - Genitourinary Genitourinary ROS male: no dysuria, no hematuria - Musculoskeletal Musculoskeletal ROS IM: myalgias, no muscle weakness, no numbness, no tingling - Integumentary Integumentary IM: no erythema, no rash - Neurological Neurological ROS: no focal weakness, no numbness, no paresthesias, no weakness - Psychiatric Psychiatric: no anxiety, no depression - Constitutional Vitals: Temp Pulse Resp BP Pulse Ox 97.9 F 76 18 130/82 82 06/25/18 20:14 06/25/18 20:14 06/25/18 20:14 06/25/18 20:14 06/25/18 21:02 Exam: Gen: Vitals noted. No acute distress. Appears comfortable. Eyes: anicteric sclerae, moist conjunctivae; no lid-lag HENT: Atraumatic; oropharynx clear with moist mucous membranes and no mucosal ulcerations; normal hard and soft palate Neck: Trachea midline; supple, no thyromegaly or lymphadenopathy Cardiac: RRR, no murmur, +S1/S2. No JVD noted. Pulmonary: Diffuse wheezing in all lung lobes, no rales or rhonchi, equal chest expansion Abdomen: soft, nontender, no guarding. No masses MSK: ROM intact, no joint swelling noted; tenderness around the anterior seventh rib cage Extremities: no edema, nontender calf Skin: Normal temperature, turgor; no rash, ulcers or subcutaneous nodules Neuro: moves all extremities, no focal deficits. Psych: Appropriate mood and behavior. A&Ox3 Internal Med - H&P Results - Labs CBC & Chem 7: 06/25/18 14:36 06/25/18 14:36 Labs: Short CBC 06/25/18 Range/Units 14:36 WBC 17.2 H (4.3-11.1) K/mcL Hgb 13.4 (12.9-16.9) g/dL Hct 41.0 (37.5-50.1) % Plt Count 228 (140-400) K/mcL Neutrophils # 12.6 H (1.6-8.9) K/mcL BMP 06/25/18 14:36 Sodium 138 Potassium 4.0 Chloride 102 Carbon Dioxide 30 H BUN 10 Creatinine 0.79 Glucose 111 H Calcium 9.2 Cardiac Enzymes 06/25/18 06/25/18 Range/Units 14:36 20:57 Troponin I 0.19 H* < 0.03 (< 0.04) ng/mL - Impressions ITS Impressions Chest CTA 06/25/18 14:03 IMPRESSION: No central or segmental pulmonary embolus. Diffuse bilateral ground-glass nodular opacities likely are infectious. Recommend follow-up in 3 months. D/ / 06/25/2018 16:21:07 Juan Santos MD / [facility] Inter[facility] Provider: Juan Santos MD - Assessment and Plan (1) Hemoptysis Current Visit: Yes Status: Acute Assessment and plan: Presented with shortness of breath and excessive coughing complaining of hemoptysis ongoing for 3 days. Likely secondary to pneumonia and excessive cough. Does have history of pulmonary embolism and his INR is subtherapeutic at 1.3 CTA of the chest is negative for acute pulmonary embolism. WBC is within normal limits at 13.4. Holding anticoagulation given the hemoptysis. Continue to monitor CBC Pulmonology consulted in case he needs bronchoscopy Continue to measure the amount of hemoptysis (2) Elevated troponin Current Visit: Yes Status: Acute Assessment and plan: Initial troponin was elevated at 0.19 repeat is 0.03. EKG shows no acute changes. Elevation was likely secondary to troponin leak from excessive cough. He complained of midsternal chest pain but appears atypical as it is reproducible upon palpation. Will continue to hold heparin given his troponins have normalized and having hypothesis. Echo pending in the morning. Continue telemetry. (3) Pneumonia Current Visit: Yes Status: Acute Assessment and plan: Presented to the ED complaining of four-day of increased productive cough with increasing shortness of breath. CT of the chest shows diffuse bilateral groundglass nodular opacities. White blood cell count is elevated at 17.2 Lactic acid is within normal limits at 1.3, he is afebrile and normotensive Sputum cultures and blood cultures pending Continue IV ceftriaxone Continue treatments for COPD CBC in the morning Qualifiers: Pneumonia type: due to unspecified organism Laterality: bilateral Lung location: lower lobe of lung Qualified Code(s): J18.1 - Lobar pneumonia, uns pecified organism (4) Acute exacerbation of chronic obstructive airways disease Current Visit: No Status: Acute Assessment and plan: History of COPD is on 3 L of home oxygen and having worsening shortness of breath with cough. Exacerbation is likely secondary to pneumonia. Pending sputum and blood cultures. Continue IV Solu-Medrol 80 every 8 hours Continue scheduled DuoNeb's Continue scheduled Symbicort. Continue oximetry. Continue incentive spirometry. Pulmonology consult (5) Costochondritis Current Visit: Yes Status: Acute Assessment and plan: Complained of chest pain which seemed atypical upon palpation has reproducible pain around the seventh rib cage. Due to hemoptysis cannot use NSAIDs. Continue acetaminophen when necessary. (6) Pulmonary embolism Current Visit: Yes Status: Chronic Assessment and plan: History of 4 previous pulmonary embolism and has history of factor V Leiden. Post be on chronic warfarin but his INR is subtherapeutic at 1.3. He is not compliant with his warfarin and does not follow with the Coumadin clinic. Currently holding anticoagulation given hemoptysis. CTA upon admission today does not show any acute pulmonary embolism. Qualifiers: Pulmonary embolism type: unspecified Chronicity: unspecified Acute cor pulmonale presence: without acute cor pulmonale Qualified Code(s): I26.99 - Other pulmonary embolism without acute cor pulmonale (7) DVT (deep venous thrombosis) Current Visit: Yes Status: Chronic Assessment and plan: Previous history of DVT. Has IVC filter. Post to be on warfarin at home but does not follow with the Coumadin clinic and is noncompliant with warfarin. Due to his current hemoptysis will hold warfarin or other anticoagulation. Qualifiers: DVT location: lower extremity Affected thrombotic vein of extremity: unspecified vein of extremity Chronicity: unspecified Laterality: unspecified laterality Qualified Code(s): I82.409 - Acute embolism and thrombosis of unspecified deep veins of unspecified lower extremity (8) Factor V Leiden Current Visit: Yes Status: Chronic Assessment and plan: History of factor V Leiden disease. Also family history affect her Leiden with his mom and his sister. Should be on warfarin but his INR is subtherapeutic at 1.3. Currently having hemoptysis holding warfarin. Urged him to follow with the Coumadin clinic upon discharge. (9) Hypertension Current Visit: Yes Status: Chronic Assessment and plan: Hypertension. Continue home lisinopril and metoprolol. Qualifiers: Hypertension type: essential hypertension Qualified Code(s): I10 - Essential (primary) hypertension (10) DVT prophylaxis Current Visit: Yes Status: Acute Assessment and plan: SCDs - Time Spent With Patient Total time spent is greater than 50% in coordination of care (as documented) at patient's floor/unit and/or counseling patient: <JessicasonyaDani Pawel - Last Filed: 06/26/18 03:19> Date of Encounter: 06/25/18 Internal Medicine - H&P: HPI History of present illness: Mr. Oliva is a 58 year old male All Systems PM: A 10-system review of systems was performed and is negative for pertinent findings except as documented above in the HPI. - Constitutional Vitals: Temp Pulse Resp BP Pulse Ox 97.9 F 76 16 130/82 96 06/25/18 20:14 06/25/18 20:14 06/25/18 22:07 06/25/18 20:14 06/25/18 22:07 Internal Med - H&P Results - Labs CBC & Chem 7: 06/25/18 14:36 06/25/18 14:36 Labs: Short CBC 06/25/18 Range/Units 14:36 WBC 17.2 H (4.3-11.1) K/mcL Hgb 13.4 (12.9-16.9) g/dL Hct 41.0 (37.5-50.1) % Plt Count 228 (140-400) K/mcL Neutrophils # 12.6 H (1.6-8.9) K/mcL BMP 06/25/18 14:36 Sodium 138 Potassium 4.0 Chloride 102 Carbon Dioxide 30 H BUN 10 Creatinine 0.79 Glucose 111 H Calcium 9.2 Cardiac Enzymes 06/25/18 06/25/18 Range/Units 14:36 20:57 Troponin I 0.19 H* < 0.03 (< 0.04) ng/mL - Impressions ITS Impressions Chest CTA 06/25/18 14:03 IMPRESSION: No central or segmental pulmonary embolus. Diffuse bilateral ground-glass nodular opacities likely are infectious. Recommend follow-up in 3 months. D/ / 06/25/2018 16:21:07 Juan Santos MD / [facility] Interpreting Provider: Juan Santos MD - Time Spent With Patient Total time spent is greater than 50% in coordination of care (as documented) at patient's floor/unit and/or counseling patient: - Attending Attestation I saw and evaluated the patient. I reviewed the residents note, performed my own physical examination and agree with findings and plan as documented in the residents note. Patient seen and examined on the morning of 06/26/18. Patient presented with hemoptysis, likely has pneumonia. He said this in the past when he has other pneumonia episodes. He has a history of factor V Leiden deficiency as well as several pulmonary embolisms. He also has a IVC filter which he says has been broken in his irretrievable. He takes warfarin at home, but does not follow up with a medical professional for INRs. He has an INR machine at home, but did in the ER here today his INR was subtherapeutic at 1.3. Despite his history of blood clots, he ran out of his warfarin medicine and he has not obtained any more medicine. Currently he is resting comfortably, still has some chest pain when he coughs which is reproducible with palpation. His troponin has decreased from its initial peak of 0.19. We are holding heparin currently due to his hemoptysis and at the recommendations of cardiology. If patient's hemoptysis improves or if patient is evaluated by pulmonology we can consider starting heparin and bridge him while we resume his warfarin.
[2018-06-25] MEDS: Budesonide/Formoterol 160/4.5 1 PUFF INH IH SCH (22:06)
[2018-06-25] MEDS: Ipratropium/Albuterol Neb 3 ML IH SCH (22:06)
[2018-06-26] MEDS ORDERED: OXYCODONE Oral CONC 10 MG/0.5 ML ORAL.SYG SL PRN ×2 (01:15)
[2018-06-26] MEDS: Gabapentin 300 MG CAPSULE PO SCH ×4 (01:42→20:13)
[2018-06-26] MEDS: ALPRAZolam 1 MG TABLET PO SCH ×3 (01:43→20:13)
[2018-06-26] MEDS: Ipratropium/Albuterol Neb 3 ML IH SCH ×6 (03:32→23:07)
[2018-06-26 07:45] LABS: Basophils % 0.1 %; Hematocrit 39.4 % (37.5-50.1); Hemoglobin 13.4 g/dL (12.9-16.9); Immature Granulocytes % 0.4 % (0-4); Lymphocytes # 1.1 K/mcL (0.6-4.6); Lymphocytes % 8.8 %; Mean Corpuscular Hemoglobin 30.9 pg (28.0-33.3); Mean Platelet Volume 9.6 fL (9.4-12.4); Monocytes # 0.4 K/mcL (0.0-1.3); Monocytes % 3.4 %; Neutrophils # 11.2 K/mcL (1.6-8.9); Platelet Count 221 K/mcL (140-400); Red Blood Count 4.33 M/mcL (4.19-5.50); Red Cell Distribution Width 12.8 % (11.5-14.5); Segmented Neutrophils % 87.3 %
[2018-06-26 07:51] LABS: INR 1.2; Prothrombin Time 13.4 Seconds (9.4-12.1)
[2018-06-26 08:09] LABS: BUN/Creatinine Ratio 16 (6-26); Blood Urea Nitrogen 12 mg/dL (6-20); Calcium 9.4 mg/dL (8.6-10.3); Carbon Dioxide 28 mEq/L (23-29); Chloride 102 mEq/L (98-107); Glucose 171 mg/dL (70-105); Osmolality,Calculated 290 (280-300); Potassium 4.1 mEq/L (3.5-5.1); Sodium 138 mEq/L (136-145); eGFR For Non-African Americans > 60 (> 60)
[2018-06-26] MEDS: Budesonide/Formoterol 160/4.5 1 PUFF INH IH SCH ×2 (08:47→19:46)
[2018-06-26] MEDS ORDERED: ALPRAZolam 1 MG TABLET PO SCH (09:00)
[2018-06-26] MEDS: MethylPREDNISolone 40 MG/ML VIAL IVP SCH ×2 (10:17→23:16)
[2018-06-26] MEDS: Lisinopril 20 MG TABLET PO SCH (10:18)
[2018-06-26] MEDS: cefTRIAXone 1,000 MG in Water for inj. (sterile) 20 ML 10 ML IVP SCH (10:18)
--- NOTE | 2018-06-26 12:12 | Internal Med Progress Note ---
Hospitalist Progress Note - Encounter Date of Encounter: 06/26/18 Time of Encounter: 09:45 - Subjective Interval History: Reports marginal improvement in his shortness of breath. No chest pain, diaphoresis, N/V, fever/chills. States that he was coughing blood-tinged sputum rather than miguel blood, which had cleared since the admission. Verified with the sputum bottle that did not show any signs of hemoptysis. - Exam Vitals: Temp Pulse Resp BP Pulse Ox 98.6 F 86 16 125/71 92 06/26/18 10:25 06/26/18 10:25 06/26/18 11:18 06/26/18 10:25 06/26/18 11:18 Exam: General: Alert and oriented, mild distress. Cardiovascular:Normal S1 & S2, No JVD. Pulse regular. Lungs: Diffuse rhonchi bilaterally, worse on the lung bases Abdomen:Soft, non-tender, no rigidity. Extremities:No deformity or swelling Neurological:Normal cognition and motor skills. Non-focal - Assessment and Plan (1) Pneumonia Current Visit: Yes Status: Acute Assessment and Plan: Presented to the ED with increased productive cough with shortness of breath as well as blood tinged sputum CT of the chest shows diffuse bilateral groundglass nodular opacities. White blood cell count is elevated at 17.2 Lactic acid is within normal limits at 1.3, he is afebrile and normotensive started on IV Rocephin, will add azithromycin for atypical coverage Sputum cultures and blood cultures pending check RIP, strep/legionella ag (2) Acute exacerbation of chronic obstructive airways disease Current Visit: Yes Status: Acute Assessment and Plan: History of COPD is on 3 L of home oxygen, complicated by PNA Continue IV Solu-Medrol, scheduled DuoNebs, and abx as above (3) Hemoptysis Current Visit: Yes Status: Acute Assessment and Plan: likely due to PNA, resolved since the presentation pt is on Coumadin for factor V Leiden with multiple DVT/PE, currently on hold continue to monitor for hemoptysis pulmonary consulted overnight (4) Elevated troponin Current Visit: Yes Status: Acute Assessment and Plan: Initial troponin was elevated at 0.19 -> 0.03 without concerning EKG changes no history of CAD, likely due to demand ischemia from respiratory distress for echocardiogram (5) Factor V Leiden Current Visit: Yes Status: Chronic Assessment and Plan: complicated by DVT/PE, on Coumadin which is on hold due to hemoptysis (6) Hypertension Current Visit: No Status: Chronic Assessment and Plan: Continue home meds (7) DVT prophylaxis Current Visit: Yes Status: Acute Assessment and Plan: SCD in view of hemoptysis - Time Spent with Patient Total time spent is greater than 50% in coordination of care (as documented) at patient's floor/unit and/or counseling patient: 25 - 35 minutes Plan of Care Discussed with: patient Internal Medicine: Result - Labs CBC & Chem 7: 06/26/18 07:02 06/26/18 07:02 Labs: Short CBC 06/25/18 06/26/18 Range/Units 14:36 07:02 WBC 17.2 H 12.8 H (4.3-11.1) K/mcL Hgb 13.4 13.4 (12.9-16.9) g/dL Hct 41.0 39.4 (37.5-50.1) % Plt Count 228 221 (140-400) K/mcL Neutrophils # 12.6 H 11.2 H (1.6-8.9) K/mcL BMP 06/25/18 06/26/18 14:36 07:02 Sodium 138 138 Potassium 4.0 4.1 Chloride 102 102 Carbon Dioxide 30 H 28 BUN 10 12 Creatinine 0.79 0.77 Glucose 111 H 171 H Calcium 9.2 9.4 Cardiac Enzymes 06/25/18 06/25/18 06/26/18 Range/Units 14:36 20:57 07:02 Troponin I 0.19 H* < 0.03 < 0.03 (< 0.04) ng/mL - ABG Interpretation ABG results: PT/INR, D-dimer PT 13.4 Seconds (9.4-12.1) H 06/26/18 07:02 - Impressions Impressions Chest CTA 06/25/18 14:03 IMPRESSION: No central or segmental pulmonary embolus. Diffuse bilateral ground-glass nodular opacities likely are infectious. Recommend follow-up in 3 months. D/ / 06/25/2018 16:21:07 Juan Santos MD / [facility] Interpreting Provider: Juan Santos MD Consult Discharge Plan - Plan Referrals: Srinivas Pearce DO [Primary Care Provider] - (1) Pneumonia Qualifiers: Pneumonia type: due to unspecified organism Laterality: bilateral Lung location: lower lobe of lung Qualified Code(s): J18.1 - Lobar pneumonia, unspecified organism (6) Hypertension Qualifiers: Hypertension type: essential hypertension Qualified Code(s): I10 - Essential (primary) hypertension
[2018-06-26] MEDS ORDERED: tiZANidine 4 MG TABLET PO PRN (12:17)
[2018-06-26] MEDS ORDERED: traMADol 50 MG TABLET PO PRN (16:06)
--- NOTE | 2018-06-26 16:18 | Electrocardiograph Report ---
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
--- NOTE | 2018-06-26 16:44 | Electrocardiograph Report ---
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
[2018-06-26] MEDS: Furosemide 40 MG TABLET PO SCH (16:45)
--- NOTE | 2018-06-26 16:51 | Electrocardiograph Report ---
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
[2018-06-26] MEDS ORDERED: Azithromycin 500 MG in D5% in Water 250 ML IVPB SCH (17:00)
[2018-06-26 18:12] LABS: Adenovirus Not Detected (Not Detect); Bordetella Pertussis Not Detected (Not Detect); Chlamydophila pneumoniae Not Detected (Not Detect); Coronavirus 229E Not Detected (Not Detect); Coronavirus HKU1 Not Detected (Not Detect); Coronavirus NL63 Not Detected (Not Detect); Coronavirus OC43 Not Detected (Not Detect); Human Metapneumovirus Not Detected (Not Detect); Human Rhinovirus/Enterovirus DETECTED (Not Detect); Influenza A Subtype 2009 H1 Not Detected (Not Detect); Influenza A Untypeable Not Detected (Not Detect); Influenza B Not Detected (Not Detect); Mycoplasma pneumoniae Not Detected (Not Detect); Parainfluenza Virus 1 Not Detected (Not Detect); Parainfluenza Virus 2 Not Detected (Not Detect); Parainfluenza Virus 3 Not Detected (Not Detect); Parainfluenza Virus 4 Not Detected (Not Detect); Respiratory Syncytial Virus Not Detected (Not Detect)
[2018-06-26] MEDS: *HR* HYDROcodone/Acet 5/325 mg TABLET PO PRN (20:13)
[2018-06-26] MEDS ORDERED: Gabapentin 300 MG CAPSULE PO SCH (21:50)
[2018-06-26] MEDS ORDERED: methylPREDNISolone 125 MG/2 ML VIAL IVP SCH (22:00)
[2018-06-27] MEDS: Ipratropium/Albuterol Neb 3 ML IH SCH ×6 (04:00→23:21)
[2018-06-27] MEDS: *HR* HYDROcodone/Acet 5/325 mg TABLET PO PRN ×3 (05:07→21:44)
[2018-06-27 07:08] LABS: Basophils % 0.2 %; Hematocrit 40.3 % (37.5-50.1); Hemoglobin 13.5 g/dL (12.9-16.9); Immature Granulocytes % 1.2 % (0-4); Lymphocytes % 5.9 %; Mean Corpuscular HGB Conc 33.5 g/dL (31.6-35.5); Mean Corpuscular Hemoglobin 30.7 pg (28.0-33.3); Mean Corpuscular Volume 91.6 fL (83.0-100.0); Mean Platelet Volume 9.3 fL (9.4-12.4); Monocytes # 1.2 K/mcL (0.0-1.3); Monocytes % 7.1 %; Neutrophils # 14.1 K/mcL (1.6-8.9); Platelet Count 285 K/mcL (140-400); Segmented Neutrophils % 85.6 %
[2018-06-27] MEDS: Budesonide/Formoterol 160/4.5 1 PUFF INH IH SCH ×2 (07:23→19:51)
[2018-06-27 07:27] LABS: BUN/Creatinine Ratio 22 (6-26); Blood Urea Nitrogen 21 mg/dL (6-20); Calcium 9.5 mg/dL (8.6-10.3); Carbon Dioxide 29 mEq/L (23-29); Chloride 102 mEq/L (98-107); Glucose 174 mg/dL (70-105); Osmolality,Calculated 297 (280-300); Potassium 4.9 mEq/L (3.5-5.1); Sodium 140 mEq/L (136-145); eGFR For Non-African Americans > 60 (> 60)
[2018-06-27] MEDS: cefTRIAXone 1,000 MG in Water for inj. (sterile) 20 ML 10 ML IVP SCH (09:35)
[2018-06-27] MEDS: Furosemide 40 MG TABLET PO SCH ×2 (09:38→17:49)
[2018-06-27] MEDS: MethylPREDNISolone 40 MG/ML VIAL IVP SCH ×2 (09:38→20:01)
[2018-06-27] MEDS: Gabapentin 300 MG CAPSULE PO SCH ×3 (09:38→20:01)
[2018-06-27] MEDS: ALPRAZolam 1 MG TABLET PO SCH ×2 (09:38→20:01)
[2018-06-27] MEDS: Lisinopril 20 MG TABLET PO SCH (09:38)
--- NOTE | 2018-06-27 12:16 | Internal Med Progress Note ---
Hospitalist Progress Note - Encounter Date of Encounter: 06/27/18 Time of Encounter: 10:00 - Subjective Interval History: States that his breathing has slightly improved from yesterday. Coughing less and no further episodes of hemoptysis noted. No fever/chills overnight. - Exam Vitals: Temp Pulse Resp BP Pulse Ox 97.8 F 64 12 110/72 97 06/27/18 11:23 06/27/18 11:23 06/27/18 11:23 06/27/18 11:23 06/27/18 11:23 Exam: General: Alert and oriented, not in distress. Cardiovascular:Normal S1 & S2, No JVD. Pulse regular. Lungs: rhonchi at bilateral lung bases but improved Abdomen:Soft, non-tender, no rigidity. Extremities:No deformity or swelling Neurological:Normal cognition and motor skills. Non-focal - Assessment and Plan (1) Acute and chronic respiratory failure with hypoxia Current Visit: Yes Status: Acute Assessment and Plan: Presented to the ED with increased productive cough with shortness of breath as well as blood tinged sputum requires 2L at baseline, currently on 4L leukocytosis of 17.2, CT chest shows diffuse bilateral groundglass nodular opacities. Lactic acid is within normal limits at 1.3, he is afebrile and normotensive Rhinovirus +ve, strep/legionella ag -ve clinically improved with resolution of hemoptysis continue IV Constantin/azithromycin follow up on blood cultures wean O2 as tolerated (2) Pneumonia Current Visit: Yes Status: Acute Assessment and Plan: as above (3) Acute exacerbation of chronic obstructive airways disease Current Visit: Yes Status: Acute Assessment and Plan: History of COPD is on 2-3L of home oxygen, complicated by PNA and rhinovirus infection Continue IV Solu-Medrol, scheduled DuoNebs, and abx as above wean O2 as tolerated (4) Hemoptysis Current Visit: Yes Status: Resolved Assessment and Plan: likely due to PNA, resolved since the presentation pt is on Coumadin for factor V Leiden with multiple DVT/PE, will resume (5) Elevated troponin Current Visit: Yes Status: Acute Assessment and Plan: Initial troponin was elevated at 0.19 -> 0.03 without concerning EKG changes no history of CAD, likely due to demand ischemia from respiratory distress echocardiogram unremarkable for outpatient ischemic workup (6) Factor V Leiden Current Visit: Yes Status: Chronic Assessment and Plan: complicated by DVT/PE, resume Coumadin (7) Hypertension Current Visit: No Status: Chronic Assessment and Plan: Continue home meds (8) DVT prophylaxis Current Visit: Yes Status: Acute Assessment and Plan: Coumadin resumed - Time Spent with Patient Total time spent is greater than 50% in coordination of care (as documented) at patient's floor/unit and/or counseling patient: 25 - 35 minutes Plan of Care Discussed with: patient Internal Medicine: Result - Labs CBC & Chem 7: 06/27/18 06:36 06/27/18 06:36 Labs: Short CBC 06/27/18 Range/Units 06:36 WBC 16.4 H (4.3-11.1) K/mcL Hgb 13.5 (12.9-16.9) g/dL Hct 40.3 (37.5-50.1) % Plt Count 285 (140-400) K/mcL Neutrophils # 14.1 H (1.6-8.9) K/mcL BMP 06/27/18 06:36 Sodium 140 Potassium 4.9 Chloride 102 Carbon Dioxide 29 BUN 21 H Creatinine 0.97 Glucose 174 H Calcium 9.5 - ABG Interpretation ABG results: PT/INR, D-dimer PT 13.4 Seconds (9.4-12.1) H 06/26/18 07:02 - Impressions Impressions Echocardiogram 06/25/18 21:48 Impressions: LVEF 65-70%. Indeterminate diastolic function. Normal right ventricular size and function. No significant valvular dysfunction. No pulmonary hypertension. Left Ventricular Wall Motion: Rest Echo Findings All wall segments showed normal motion. Findings: Study Quality * Technically adequate exam. ECG Findings * Normal sinus rhythm. Left Ventricle * LVEF 65-70%. * Normal LV chamber size, wall thickness and function. * Indeterminate diastolic function. Right Ventricle * Normal right ventricular structure and function. Left Atrium * Mildly dilated left atrium. Right Atrium * Normal right atrial size. Aortic Valve * No aortic regurgitation. * Aortic valve not well visualized. * No aortic stenosis. Mitral Valve * No mitral regurgitation. * Normal mitral valve structure. * No mitral stenosis. Tricuspid Valve * Tricuspid valve not well visualized. * Trace tricuspid regurgitation. Pulmonic Valve * Pulmonic valve is not well visualized. * No pulmonic stenosis. * No pulmonic regurgitation. Pulmonary Artery * Pulmonary artery not well visualized. Aorta * Normally sized aortic root. Pericardium * There is no pericardial effusion present. Interatrial Septum * No evidence of PFO by color Doppler. IVC * The IVC is not well evaluated. Consult Discharge Plan - Plan Referrals: Srinivas Pearce DO [Primary Care Provider] - (2) Pneumonia Qualifiers: Pneumonia type: due to unspecified organism Laterality: bilateral Lung location: lower lobe of lung Qualified Code(s): J18.1 - Lobar pneumonia, unspecified organism (7) Hypertension Qualifiers: Hypertension type: essential hypertension Qualified Code(s): I10 - Essential (primary) hypertension
[2018-06-27] MEDS ORDERED: *HR* Warfarin 7.5 MG TABLET PO ONE (18:00)
[2018-06-27] MEDS ORDERED: Warfarin perPT PO PRN (18:00)
[2018-06-28] MEDS: Ipratropium/Albuterol Neb 3 ML IH SCH ×5 (03:44→20:07)
[2018-06-28] MEDS: *HR* HYDROcodone/Acet 5/325 mg TABLET PO PRN ×3 (04:23→18:34)
[2018-06-28] MEDS: Budesonide/Formoterol 160/4.5 1 PUFF INH IH SCH ×2 (07:21→20:07)
[2018-06-28 08:55] LABS: Hematocrit 42.9 % (37.5-50.1); Hemoglobin 13.6 g/dL (12.9-16.9); Mean Corpuscular HGB Conc 31.7 g/dL (31.6-35.5); Mean Corpuscular Volume 94.5 fL (83.0-100.0); Red Blood Count 4.54 M/mcL (4.19-5.50); Red Cell Distribution Width 13.1 % (11.5-14.5)
[2018-06-28 08:56] LABS: Basophils % 0.2 %; Immature Granulocytes % 2.5 % (0-4); Lymphocytes # 1.3 K/mcL (0.6-4.6); Lymphocytes % 8.7 %; Mean Platelet Volume 9.4 fL (9.4-12.4); Monocytes # 1.4 K/mcL (0.0-1.3); Monocytes % 8.9 %; Neutrophils # 12.2 K/mcL (1.6-8.9); Platelet Count 294 K/mcL (140-400); Segmented Neutrophils % 79.7 %
[2018-06-28 09:01] LABS: Prothrombin Time 11.6 Seconds (9.4-12.1)
[2018-06-28 09:10] LABS: BUN/Creatinine Ratio 24 (6-26); Blood Urea Nitrogen 22 mg/dL (6-20); Calcium 9.2 mg/dL (8.6-10.3); Carbon Dioxide 30 mEq/L (23-29); Chloride 101 mEq/L (98-107); Glucose 173 mg/dL (70-105); Osmolality,Calculated 293 (280-300); Potassium 4.6 mEq/L (3.5-5.1); Sodium 138 mEq/L (136-145); eGFR For Non-African Americans > 60 (> 60)
[2018-06-28] MEDS: Azithromycin 250 MG TABLET PO SCH (09:33)
[2018-06-28] MEDS: Gabapentin 300 MG CAPSULE PO SCH ×3 (09:33→21:37)
[2018-06-28] MEDS: Lisinopril 20 MG TABLET PO SCH (09:33)
[2018-06-28] MEDS: ALPRAZolam 1 MG TABLET PO SCH ×2 (09:33→21:37)
[2018-06-28] MEDS: Furosemide 40 MG TABLET PO SCH ×2 (09:34→16:26)
[2018-06-28] MEDS: cefTRIAXone 1,000 MG in Water for inj. (sterile) 20 ML 10 ML IVP SCH (09:34)
[2018-06-28] MEDS: MethylPREDNISolone 40 MG/ML VIAL IVP SCH ×3 (09:34→18:34)
[2018-06-28] MEDS ORDERED: HYDROcodone BIT/Homatropine LQ 5 MG/5 ML UDC PO PRN (10:55)
--- NOTE | 2018-06-28 12:00 | Internal Med Progress Note ---
Hospitalist Progress Note - Encounter Date of Encounter: 06/28/18 Time of Encounter: 09:45 - Subjective Interval History: Continues to remain fairly dyspneic with significant amount of cough. However, no further episodes of hemoptysis noted. No fever overnight - Exam Vitals: Temp Pulse Resp BP Pulse Ox 97.7 F 74 20 134/67 93 06/28/18 11:46 06/28/18 11:46 06/28/18 11:46 06/28/18 11:46 06/28/18 11:46 Exam: General: Alert and oriented, mild distress but able to speak in full sentences Cardiovascular:Normal S1 & S2, No JVD. Pulse regular. Lungs: Significant rhonchi at bilateral lung bases Abdomen:Soft, non-tender, no rigidity. Extremities:No deformity or swelling Neurological:Normal cognition and motor skills. Non-focal - Assessment and Plan (1) Acute and chronic respiratory failure with hypoxia Current Visit: Yes Status: Acute Assessment and Plan: Presented to the ED with increased productive cough with shortness of breath as well as blood tinged sputum CT chest shows diffuse bilateral groundglass nodular opacities. Rhinovirus +ve, strep/legionella ag -ve. sputum c/s normal respi gemma requires 2L at baseline, currently on 3-4L but continues to remains significant dyspneic leukocytosis slightly improved to 15.3 on IV Constantin/azithromycin, continue follow up on blood cultures wean O2 as tolerated (2) Pneumonia Current Visit: Yes Status: Acute Assessment and Plan: as above (3) Acute exacerbation of chronic obstructive airways disease Current Visit: Yes Status: Acute Assessment and Plan: History of COPD is on 2-3L of home oxygen, complicated by PNA and rhinovirus infection Continue scheduled DuoNebs and abx as above. Increase steroid to 40 Q8 wean O2 as tolerated (4) Hemoptysis Current Visit: Yes Status: Resolved Assessment and Plan: likely due to PNA, resolved since the presentation pt is on Coumadin for factor V Leiden with multiple DVT/PE which was resumed on 06/27 (5) Elevated troponin Current Visit: Yes Status: Acute Assessment and Plan: Initial troponin was elevated at 0.19 -> 0.03 without concerning EKG changes no history of CAD, likely due to demand ischemia from respiratory distress echocardiogram unremarkable for outpatient ischemic workup (6) Factor V Leiden Current Visit: Yes Status: Chronic Assessment and Plan: complicated by DVT/PE, resume Coumadin Daily INR, pharmacy to help dosing with Coumadin (7) Hypertension Current Visit: No Status: Chronic Assessment and Plan: Continue home meds (8) DVT prophylaxis Current Visit: Yes Status: Acute Assessment and Plan: Coumadin resumed - Time Spent with Patient Total time spent is greater than 50% in coordination of care (as documented) at patient's floor/unit and/or counseling patient: 25 - 35 minutes Plan of Care Discussed with: patient (discussed with RN) Internal Medicine: Result - Labs CBC & Chem 7: 06/28/18 08:03 06/28/18 08:03 Labs: Short CBC 06/28/18 Range/Units 08:03 WBC 15.3 H (4.3-11.1) K/mcL Hgb 13.6 (12.9-16.9) g/dL Hct 42.9 (37.5-50.1) % Plt Count 294 (140-400) K/mcL Neutrophils # 12.2 H (1.6-8.9) K/mcL BMP 06/28/18 08:03 Sodium 138 Potassium 4.6 Chloride 101 Carbon Dioxide 30 H BUN 22 H Creatinine 0.92 Glucose 173 H Calcium 9.2 - ABG Interpretation ABG results: PT/INR, D-dimer PT 11.6 Seconds (9.4-12.1) 06/28/18 08:03 Consult Discharge Plan - Plan Referrals: Srinivas Pearce DO [Primary Care Provider] - (2) Pneumonia Qualifiers: Pneumonia type: due to unspecified organism Laterality: bilateral Lung location: lower lobe of lung Qualified Code(s): J18.1 - Lobar pneumonia, unspecified organism (7) Hypertension Qualifiers: Hypertension type: essential hypertension Qualified Code(s): I10 - Essential (primary) hypertension
[2018-06-28] MEDS ORDERED: *HR* Warfarin 10 MG TABLET PO ONE (18:00)
[2018-06-28] MEDS: HYDROcodone BIT/Homatropine LQ 5 MG/5 ML UDC PO PRN (21:36)
[2018-06-29] MEDS: Ipratropium/Albuterol Neb 3 ML IH SCH ×7 (00:22→23:53)
[2018-06-29] MEDS: *HR* HYDROcodone/Acet 5/325 mg TABLET PO PRN ×2 (00:40→07:17)
[2018-06-29] MEDS: MethylPREDNISolone 40 MG/ML VIAL IVP SCH ×2 (03:56→10:28)
[2018-06-29] MEDS: HYDROcodone BIT/Homatropine LQ 5 MG/5 ML UDC PO PRN ×2 (03:56→10:28)
[2018-06-29] MEDS: Budesonide/Formoterol 160/4.5 1 PUFF INH IH SCH ×2 (07:23→20:15)
[2018-06-29] MEDS: Lisinopril 20 MG TABLET PO SCH (08:52)
[2018-06-29] MEDS: Gabapentin 300 MG CAPSULE PO SCH ×3 (08:53→20:58)
[2018-06-29] MEDS: cefTRIAXone 1,000 MG in Water for inj. (sterile) 20 ML 10 ML IVP SCH (08:53)
[2018-06-29] MEDS: Furosemide 40 MG TABLET PO SCH ×2 (08:53→17:29)
[2018-06-29] MEDS: ALPRAZolam 1 MG TABLET PO SCH ×2 (08:53→20:59)
[2018-06-29] MEDS: Azithromycin 250 MG TABLET PO SCH (08:53)
[2018-06-29 10:36] LABS: INR 1.4; Prothrombin Time 15.3 Seconds (9.4-12.1)
[2018-06-29] MEDS ORDERED: methylPREDNISolone 125 MG/2 ML VIAL IVP SCH (11:56)
--- NOTE | 2018-06-29 14:18 | Internal Med Progress Note ---
Hospitalist Progress Note - Encounter Date of Encounter: 06/29/18 Time of Encounter: 11:00 - Subjective Interval History: Patient did not notice any significant improvement from the day prior. States that he is coughing but no phlegm coming out. No fever overnight. Pain is unbearable on coughing - Exam Vitals: Temp Pulse Resp BP Pulse Ox 98.5 F 102 18 140/84 93 06/29/18 10:05 06/29/18 10:05 06/29/18 11:27 06/29/18 10:05 06/29/18 11:27 Exam: General: Alert and oriented, mild distress but able to speak in full sentences Cardiovascular:Normal S1 & S2, No JVD. Pulse regular. Lungs: Continues to have bilateral wheezes but no significant rhonchi today Abdomen:Soft, non-tender, no rigidity. Extremities:No deformity or swelling Neurological:Normal cognition and motor skills. Non-focal - Assessment and Plan (1) Acute and chronic respiratory failure with hypoxia Current Visit: Yes Status: Acute Assessment and Plan: Presented to the ED with increased productive cough with shortness of breath as well as blood tinged sputum CT chest shows diffuse bilateral groundglass nodular opacities. Rhinovirus +ve, strep/legionella ag -ve. sputum c/s normal respi gemma requires 2L at baseline, currently on 3L and continues to remain quite dyspneic rhonchi largely resolved but diffuse wheezing noted will continue current abx for now, D5, increase steroid to 60mg Q8 if no clinical improvement is noted by tomorrow, will consult pulm hycodan syrup added for cough follow up on blood cultures wean O2 as tolerated (2) Pneumonia Current Visit: Yes Status: Acute Assessment and Plan: as above (3) Acute exacerbation of chronic obstructive airways disease Current Visit: Yes Status: Acute Assessment and Plan: History of COPD is on 2-3L of home oxygen, complicated by PNA and rhinovirus infection Continue scheduled DuoNebs and abx as above. steroid increased to 60mg Q8 wean O2 as tolerated (4) Hemoptysis Current Visit: Yes Status: Resolved Assessment and Plan: likely due to PNA, resolved since the presentation pt is on Coumadin for factor V Leiden with multiple DVT/PE which was resumed on 4/10 daily INR (5) Elevated troponin Current Visit: Yes Status: Acute Assessment and Plan: Initial troponin was elevated at 0.19 -> 0.03 without concerning EKG changes no history of CAD, likely due to demand ischemia from respiratory distress echocardiogram unremarkable for outpatient ischemic workup (6) Factor V Leiden Current Visit: Yes Status: Chronic Assessment and Plan: complicated by DVT/PE, Coumadin resumed on 4/10 Daily INR, pharmacy to help dosing with Coumadin (7) Hypertension Current Visit: No Status: Chronic Assessment and Plan: Continue home meds (8) DVT prophylaxis Current Visit: Yes Status: Acute Assessment and Plan: Coumadin resumed - Time Spent with Patient Total time spent is greater than 50% in coordination of care (as documented) at patient's floor/unit and/or counseling patient: 25 - 35 minutes Plan of Care Discussed with: patient Internal Medicine: Result - Labs CBC & Chem 7: 06/28/18 08:03 06/28/18 08:03 - ABG Interpretation ABG results: PT/INR, D-dimer PT 15.3 Seconds (9.4-12.1) H 06/29/18 10:06 - VTE Documentation of Mechanical Device: Intermittent pneumatic compression device Consult Discharge Plan - Plan Referrals: Srinivas Pearce DO [Primary Care Provider] - (2) Pneumonia Qualifiers: Pneumonia type: due to unspecified organism Laterality: bilateral Lung locat ion: lower lobe of lung Qualified Code(s): J18.1 - Lobar pneumonia, unspecified organism (7) Hypertension Qualifiers: Hypertension type: essential hypertension Qualified Code(s): I10 - Essential (primary) hypertension
[2018-06-29] MEDS: *HR* HYDROcodone/Acet 10/325 mg TABLET PO PRN ×2 (14:44→20:58)
[2018-06-29] MEDS: Benzonatate 100 MG CAPSULE PO PRN ×2 (14:45→22:56)
[2018-06-29] MEDS: methylPREDNISolone 125 MG/2 ML VIAL IVP SCH (17:29)
[2018-06-29] MEDS ORDERED: *HR* Warfarin 7.5 MG TABLET PO ONE (18:00)
[2018-06-30] MEDS: *HR* HYDROcodone/Acet 10/325 mg TABLET PO PRN ×4 (03:07→23:28)
[2018-06-30] MEDS: methylPREDNISolone 125 MG/2 ML VIAL IVP SCH ×3 (03:08→19:25)
[2018-06-30] MEDS: Ipratropium/Albuterol Neb 3 ML IH SCH ×6 (04:21→23:20)
[2018-06-30 05:56] LABS: INR 1.8; Prothrombin Time 19.8 Seconds (9.4-12.1)
[2018-06-30 06:01] LABS: Basophils # 0.1 K/mcL (0.0-0.2); Basophils % 0.5 %; Eosinophils % 0.2 %; Hematocrit 42.7 % (37.5-50.1); Hemoglobin 13.9 g/dL (12.9-16.9); Immature Granulocytes % 2.8 % (0-4); Immature Platelets 2.1 % (1.1-6.1); Lymphocytes # 1.2 K/mcL (0.6-4.6); Lymphocytes % 8.1 %; Mean Corpuscular HGB Conc 32.6 g/dL (31.6-35.5); Mean Corpuscular Hemoglobin 30.5 pg (28.0-33.3); Mean Corpuscular Volume 93.6 fL (83.0-100.0); Mean Platelet Volume 10.1 fL (9.4-12.4); Neutrophils # 12.1 K/mcL (1.6-8.9); Platelet Count 250 K/mcL (140-400); Red Blood Count 4.56 M/mcL (4.19-5.50); Red Cell Distribution Width 13.2 % (11.5-14.5); Segmented Neutrophils % 81.4 %
[2018-06-30 06:02] LABS: BUN/Creatinine Ratio 25 (6-26); Blood Urea Nitrogen 24 mg/dL (6-20); Carbon Dioxide 30 mEq/L (23-29); Chloride 98 mEq/L (98-107); Glucose 166 mg/dL (70-105); Osmolality,Calculated 296 (280-300); Potassium 4.8 mEq/L (3.5-5.1); Sodium 139 mEq/L (136-145); eGFR For Non-African Americans > 60 (> 60)
[2018-06-30] MEDS: Budesonide/Formoterol 160/4.5 1 PUFF INH IH SCH ×2 (07:35→19:40)
[2018-06-30 07:53] LABS: Platelet Clumps Few (Not Present); Platelet Estimate Normal (Normal)
[2018-06-30] MEDS: cefTRIAXone 1,000 MG in Water for inj. (sterile) 20 ML 10 ML IVP SCH (09:55)
[2018-06-30] MEDS: ALPRAZolam 1 MG TABLET PO SCH ×2 (09:55→23:29)
[2018-06-30] MEDS: Furosemide 40 MG TABLET PO SCH ×2 (09:56→16:54)
[2018-06-30] MEDS: Benzonatate 100 MG CAPSULE PO PRN ×2 (09:56→19:26)
[2018-06-30] MEDS: Azithromycin 250 MG TABLET PO SCH (09:57)
[2018-06-30] MEDS: Gabapentin 300 MG CAPSULE PO SCH ×3 (09:57→23:29)
[2018-06-30] MEDS: Lisinopril 20 MG TABLET PO SCH (09:58)
--- NOTE | 2018-06-30 10:47 | Pulmonology Consult Note ---
Date of Encounter: 06/30/18 Time of Encounter: 10:46 Assessment and Plan (1) Acute respiratory failure with hypoxia Current Visit: No Status: Acute This is secondary to pneumonia with COPD exacerbation currently requiring 2-3 L nasal cannula which he has required on previous admissions for similar presentation it is very likely patient would need to be discharged home with oxygen until her a clinic follow-up. Although he had indeterminate diastolic dysfunction is left atrium is mildly enlarged on echocardiogram and in general would recommend net negative fluid status while hypoxic (0.5-1 L negative as tolerated monitoring renal function) He does have a history of factor V Leiden but is on chronic anticoagulation and CT angiogram was negative for pulmonary embolus (2) Community acquired pneumonia Current Visit: No Status: Acute Patient presenting with viral pneumonia with suspected bacterial coinfection he is on appropriate antibiotic management at this time cultures have remained negative would treat for a total of [address] scan in 4-6 weeks Qualifiers: Laterality: right Lung location: lower lobe of lung Qualified Code(s): J18.1 - Lobar pneumonia, unspecified organism (3) Acute exacerbation of chronic obstructive airways disease Current Visit: Yes Status: Acute I agree with current management including schedule bronchodilators Symbicort and IV systemic glucocorticoids. Unfortunately I suspect some degree of glucocorticoids resistance given his long smoking history and would recommend actually transitioning to oral glucocorticoids such as a 60 mg which can be decreased by 10 mg weekly until clinic follow-up It is very important the patient stay on a daily metered-dose inhaler such as Symbicort at the time of discharge until pulmonary follow-up Unfortunately with viral pneumonia COPD exacerbation can be prolonged and the clinical course as far as not entirely unexpected given his presentations in the past (4) Suspected sleep apnea Current Visit: No Status: Chronic This is discussed in clinic patient will need outpatient polysomnogram and I did caution him to be careful with any activities that require constant vigilance such as driving and not to undertake these activities to be sleepy long-term consequences of sleep apnea can include pulmonary hypertension and stroke among other medical comorbidities Thank you very much for this consultation happy to follow with the patient and clinic and please call with any questions History of Present Illness Consult date: 06/30/18 Requesting physician: Abdiel Mendiola Reason for consult: COPD Chief complaint: Difficulty in Breathing History of present illness: Very pleasant 58-year-old gentleman known from pulmonary clinic past medical history of COPD former smoker of [id number] but is in remission presented with increasing shortness of breath and a persistent cough initially had some minor hemoptysis which is resolved was admitted and workup this far including CT angiogram was notable for bilateral infiltrates infectious workup notable for right now/enterovirus patient had severe COPD exacerbation and has been on an tibiotics and steroids along with bronchodilators but has shown slow resolution pulmonary was consulted for further evaluation. Speaking with the patient today he is mildly dyspneic but conversational he is requiring 2-3 L nasal cannula while sitting in bed with oxygen saturation in the mid 90s. Denies any fevers or chills currently still having difficult time expectorating sputum. Was seen in pulmonary clinic and was started on triple long-acting inhaler therapy but did not follow-up and has not been using inhalers at home except for albuterol. Past Med Surg Social Fam HX - Past Medical History Medical history: COPD, DVT, hypertension, pulmonary embolus, other Additional medical history: "filter" Psychiatric history: anxiety - Past Surgical History Surgical History: non-contributory Additional surgical history: PLACEMENT OF THE IVC FILTER. VASECTOMY - Social History Smoking Status: Former smoker Smokeless Tobacco Status: Yes Alcohol use: none Drug use: none - Family History Father Adopted: No Living Status: Age at : 75 Cause of : bladder ca Hx Family Cardiac Disorders: Yes ([place]) Hx Family Respiratory Disorders: Yes (copd, black lung) Hx Family Cancer: Yes Hx Family GI Disorders: No Mother Adopted: No Living Status: Still Living Hx Family Respiratory Disorders: Yes (copd) Hx Family Cancer: Yes (lung, brain) Hx Family GI Disorders: Yes (colon) Medications and Allergies Gabapentin [Neurontin] 300 mg PO TID 03/27/15 [History] DULoxetine [Cymbalta] 30 mg PO DAILY 02/27/17 [History] Atorvastatin [Lipitor] 10 mg PO HS 03/23/17 [History] Lisinopril [Zestril] 20 mg PO DAILY 03/23/17 [History] Ipratropium/Albuterol Neb [Duoneb] 3 ml IH Q6H PRN 30 Days inhsol 03/31/17 [Rx] Metoprolol [Lopressor] 12.5 mg PO BID tablet 04/04/17 [Rx] Tizanidine HCl [Zanaflex] 4 mg PO TID PRN #10 capsule 04/04/17 [Rx] Furosemide [Lasix] 40 mg PO BID #60 tablet 04/05/17 [Rx] ALPRAZolam [Xanax 1 MG Tablet] 1 mg PO BID PRN 04/17/17 [History] Oxygen 3 l NS CONT 04/17/17 [History] Albuterol Sulfate [Albuterol Inhaler] 2 puff IH Q4HR #1 inhaler 09/25/17 [Rx] Warfarin [Coumadin] 10 mg PO DAILY 03/25/18 [History] Allergy/AdvReac Type Severity Reaction Status Date / Time No Known Allergies Allergy Verified 06/26/18 13:36 All Systems: The remainder of the systems were reviewed and are negative Physical Examination Vital Signs: Vital Signs, Last 4 Hours Temp Pulse Resp BP Pulse Ox 06/30/18 07:35 20 94 06/30/18 06:58 97.6 F 73 20 131/65 93 General appearance: no acute distress Eyes: nonicteric ENT: oropharynx moist Neck: supple Effort: mildly labored Auscultation: bilateral: wheezes Cardiovascular: regular rate and rhythm Gastrointestinal: normoactive bowel sounds Integumentary: normal Extremities: no cyanosis, no edema, no clubbing Musculoskeletal: no deformities normal mental status, non-focal exam mood appropriate Results - Laboratory Findings CBC and BMP: 06/30/18 04:23 06/30/18 04:23 PT/INR, D-dimer PT 19.8 Seconds (9.4-12.1) H 06/30/18 04:23 Abnormal lab findings: Abnormal lab results WBC 14.8 K/mcL (4.3-11.1) H 06/30/18 04:23 Neutrophils # 12.1 K/mcL (1.6-8.9) H 06/30/18 04:23 Clumped Platelets Few (Not Present) A 06/30/18 04:23 PT 19.8 Seconds (9.4-12.1) H 06/30/18 04:23 Carbon Dioxide 30 mEq/L (23-29) H 06/30/18 04:23 BUN 24 mg/dL (6-20) H 06/30/18 04:23 Glucose 166 mg/dL (70-105) H 06/30/18 04:23 Entero/Rhino (PCR) DETECTED (Not Detect) A 06/26/18 17:00 - Diagnostic Findings Chest x-ray: report reviewed, image reviewed CT scan - chest: report reviewed, image reviewed - Clinical Findings Intake & Output: Intake & Output 06/29/18 06/30/18 06/30/18 23:59 07:59 15:59 Intake Total 240 / 240 Output Total 500 / 500 Balance -500 / -500 240 / 240 Weight 133.13 kg Consult Discharge Plan - Plan Referrals: Srinivas Pearce DO [Primary Care Provider] -
--- NOTE | 2018-06-30 14:05 | Internal Med Progress Note ---
Hospitalist Progress Note - Encounter Date of Encounter: 06/30/18 Time of Encounter: 11:30 - Subjective Interval History: No significant improvement noted by the patient. Patient continues to remain on 2-3 L of oxygen which is his baseline but continues to have severe episodes of coughing spells. No fever overnight - Exam Vitals: Temp Pulse Resp BP Pulse Ox 97.6 F 73 20 131/65 94 06/30/18 06:58 06/30/18 06:58 06/30/18 07:35 06/30/18 06:58 06/30/18 07:35 Exam: General: Alert and oriented, mild distress but able to speak in full sentences Cardiovascular:Normal S1 & S2, No JVD. Pulse regular. Lungs: Continues to have diffuse bilateral wheezes but no significant rhonchi Abdomen:Soft, non-tender, no rigidity. Extremities:L calf tenderness without obvious swelling or redness Neurological:Normal cognition and motor skills. Non-focal - Assessment and Plan (1) Acute and chronic respiratory failure with hypoxia Current Visit: Yes Status: Acute Assessment and Plan: Presented to the ED with increased productive cough with shortness of breath as well as blood tinged sputum CT chest shows diffuse bilateral groundglass nodular opacities. Rhinovirus +ve, strep/legionella ag -ve. sputum c/s normal respi gemma requires 2L at baseline, currently on 3L and continues to remain quite dyspneic rhonchi largely resolved but diffuse wheezing noted continue abx and steroid increased to 60mg Q8. Remains persistently symptomatic however pulm consult hycodan syrup added for cough follow up on blood cultures wean O2 as tolerated (2) Pneumonia Current Visit: Yes Status: Acute Assessment and Plan: as above (3) Acute exacerbation of chronic obstructive airways disease Current Visit: Yes Status: Acute Assessment and Plan: History of COPD is on 2-3L of home oxygen, complicated by PNA and rhinovirus infection Continue scheduled DuoNebs and abx as above. steroid increased to 60mg Q8 but no significant improvement noted pulm consult as above wean O2 as tolerated (4) Left leg pain Current Visit: Yes Status: Acute Assessment and Plan: Complaint of left calf pain, hx of DVT with factor V Leiden doppler overnight was negative for SVT/DVT, suspect muscle spasm trial of baclofen (5) Hemoptysis Current Visit: Yes Status: Resolved Assessment and Plan: likely due to PNA, resolved since the presentation pt is on Coumadin for factor V Leiden with multiple DVT/PE which was resumed on 4/10 daily INR (6) Elevated troponin Current Visit: Yes Status: Acute Assessment and Plan: Initial troponin was elevated at 0.19 -> 0.03 without concerning EKG changes no history of CAD, likely due to demand ischemia from respiratory distress echocardiogram unremarkable for outpatient ischemic workup (7) Factor V Leiden Current Visit: Yes Status: Chronic Assessment and Plan: complicated by DVT/PE, Coumadin resumed on 4/10 Daily INR, pharmacy to help dosing with Coumadin (8) Hypertension Current Visit: No Status: Chronic Assessment and Plan: Continue home meds (9) DVT prophylaxis Current Visit: Yes Status: Acute Assessment and Plan: Coumadin resumed - Time Spent with Patient Total time spent is greater than 50% in coordination of care (as documented) at patient's floor/unit and/or counseling patient: 25 - 35 minutes Plan of Care Discussed with: patient (Discussed with pulmonary) Internal Medicine: Result - Labs CBC & Chem 7: 06/30/18 04:23 06/30/18 04:23 Labs: Short CBC 06/30/18 Range/Units 04:23 WBC 14.8 H (4.3-11.1) K/mcL Hgb 13.9 (12.9-16.9) g/dL Hct 42.7 (37.5-50.1) % Plt Count 250 (140-400) K/mcL Neutrophils # 12.1 H (1.6-8.9) K/mcL BMP 06/30/18 04:23 Sodium 139 Potassium 4.8 Chloride 98 Carbon Dioxide 30 H BUN 24 H Creatinine 0.97 Glucose 166 H Calcium 9.0 - ABG Interpretation ABG results: PT/INR, D-dimer PT 19.8 Seconds (9.4-12.1) H 06/30/18 04:23 - VTE Documentation of Mechanical Device: Intermittent pneumatic compression device Consult Discharge Plan - Plan Referrals: Srinivas Pearce DO [Primary Care Provider] - __ (2) Pneumonia Qualifiers: Pneumonia type: due to unspecified organism Laterality: bilateral Lung location: lower lobe of lung Qualified Code(s): J18.1 - Lobar pneumonia, unspecified organism (8) Hypertension Qualifiers: Hypertension type: essential hypertension Qualified Code(s): I10 - Essential (primary) hypertension
[2018-06-30] MEDS ORDERED: Baclofen 10 MG TABLET PO PRN (14:07)
[2018-06-30] MEDS ORDERED: *HR* Warfarin 7.5 MG TABLET PO ONE (18:00)
[2018-06-30] MEDS: Saline Nasal Spray 44 ML BOTTLE NS PRN (23:26)
[2018-07-01] MEDS: Ipratropium/Albuterol Neb 3 ML IH SCH ×5 (03:52→20:21)
[2018-07-01] MEDS: methylPREDNISolone 125 MG/2 ML VIAL IVP SCH (04:30)
[2018-07-01] MEDS: Benzonatate 100 MG CAPSULE PO PRN ×2 (05:35→18:25)
[2018-07-01] MEDS: *HR* HYDROcodone/Acet 10/325 mg TABLET PO PRN ×3 (05:36→20:53)
[2018-07-01 06:24] LABS: Basophils # 0.1 K/mcL (0.0-0.2); Basophils % 0.3 %; Hematocrit 41.8 % (37.5-50.1); Hemoglobin 13.7 g/dL (12.9-16.9); Immature Granulocytes % 3.1 % (0-4); Lymphocytes # 1.2 K/mcL (0.6-4.6); Lymphocytes % 7.8 %; Mean Corpuscular HGB Conc 32.8 g/dL (31.6-35.5); Mean Corpuscular Hemoglobin 30.3 pg (28.0-33.3); Mean Corpuscular Volume 92.5 fL (83.0-100.0); Mean Platelet Volume 9.3 fL (9.4-12.4); Monocytes # 0.9 K/mcL (0.0-1.3); Monocytes % 6.1 %; Neutrophils # 12.3 K/mcL (1.6-8.9); Platelet Count 231 K/mcL (140-400); Red Blood Count 4.52 M/mcL (4.19-5.50); Red Cell Distribution Width 13.3 % (11.5-14.5); Segmented Neutrophils % 82.7 %
[2018-07-01 06:38] LABS: INR 2.4; Prothrombin Time 26.6 Seconds (9.4-12.1)
[2018-07-01 06:47] LABS: BUN/Creatinine Ratio 28 (6-26); Blood Urea Nitrogen 28 mg/dL (6-20); Carbon Dioxide 33 mEq/L (23-29); Chloride 95 mEq/L (98-107); Glucose 177 mg/dL (70-105); Osmolality,Calculated 290 (280-300); Potassium 4.6 mEq/L (3.5-5.1); Sodium 135 mEq/L (136-145); eGFR For Non-African Americans > 60 (> 60)
[2018-07-01] MEDS: Budesonide/Formoterol 160/4.5 1 PUFF INH IH SCH ×2 (07:43→20:21)
[2018-07-01] MEDS: predniSONE 20 MG TABLET PO SCH (10:55)
[2018-07-01] MEDS: Furosemide 40 MG TABLET PO SCH ×2 (10:56→18:25)
[2018-07-01] MEDS: cefTRIAXone 1,000 MG in Water for inj. (sterile) 20 ML 10 ML IVP SCH (10:56)
[2018-07-01] MEDS: Lisinopril 20 MG TABLET PO SCH (10:56)
[2018-07-01] MEDS: Gabapentin 300 MG CAPSULE PO SCH ×3 (10:56→20:53)
[2018-07-01] MEDS: ALPRAZolam 1 MG TABLET PO SCH ×2 (10:56→20:53)
[2018-07-01] MEDS: Saline Nasal Spray 44 ML BOTTLE NS PRN (11:04)
--- NOTE | 2018-07-01 12:46 | Internal Med Progress Note ---
Hospitalist Progress Note - Encounter Date of Encounter: 07/01/18 Time of Encounter: 10:30 - Subjective Interval History: Patient reports slight improvement in his shortness of breath but appears to be coughing less during the interview today. No fever overnight. - Exam Vitals: Temp Pulse Resp BP Pulse Ox 98.1 F 78 18 133/71 90 07/01/18 11:54 07/01/18 11:54 07/01/18 11:54 07/01/18 11:54 07/01/18 11:54 Exam: General: Alert and oriented, mild distress but appears more comfortable than yesterday Cardiovascular:Normal S1 & S2, No JVD. Pulse regular. Lungs: Continues to have diffuse bilateral wheezes which is less significant, no rhonchi Abdomen:Soft, non-tender, no rigidity. Extremities:L calf tenderness without obvious swelling or redness Neurological:Normal cognition and motor skills. Non-focal - Assessment and Plan (1) Acute and chronic respiratory failure with hypoxia Current Visit: Yes Status: Acute Assessment and Plan: Presented to the ED with increased productive cough with shortness of breath as well as blood tinged sputum CT chest shows diffuse bilateral groundglass nodular opacities. Rhinovirus +ve, strep/legionella ag -ve. sputum c/s normal respi gemma, blood cultures -ve requires 2L at baseline, currently on 3L and continues to remain quite dyspneic rhonchi largely resolved but diffuse wheezing noted continue abx D7 today. Appreciate pulm input; will switch steroid to PO 60mg and taper 10mg weekly pulm consult continue anti-tussive wean O2 as tolerated (2) Pneumonia Current Visit: Yes Status: Acute Assessment and Plan: as above (3) Acute exacerbation of chronic obstructive airways disease Current Visit: Yes Status: Acute Assessment and Plan: History of COPD is on 2-3L of home oxygen, complicated by PNA and rhinovirus inf ection Continue scheduled DuoNebs and abx as above. Switching steroid to PO 60mg per pulm rec wean O2 as tolerated (4) Left leg pain Current Visit: Yes Status: Acute Assessment and Plan: Complaint of left calf pain, hx of DVT with factor V Leiden doppler overnight was negative for SVT/DVT, suspect muscle spasm trial of baclofen (5) Hemoptysis Current Visit: Yes Status: Resolved Assessment and Plan: likely due to PNA, resolved since the presentation pt is on Coumadin for factor V Leiden with multiple DVT/PE which was resumed on 4/10 INR therapeutic, continue to monitor (6) Elevated troponin Current Visit: Yes Status: Acute Assessment and Plan: Initial troponin was elevated at 0.19 -> 0.03 without concerning EKG changes no history of CAD, likely due to demand ischemia from respiratory distress echocardiogram unremarkable for outpatient ischemic workup (7) Factor V Leiden Current Visit: Yes Status: Chronic Assessment and Plan: complicated by DVT/PE, Coumadin resumed on 4/10 Daily INR, pharmacy to help dosing with Coumadin (8) Hypertension Current Visit: No Status: Chronic Assessment and Plan: Continue home meds (9) DVT prophylaxis Current Visit: Yes Status: Acute Assessment and Plan: therapeutic INR - Time Spent with Patient Total time spent is greater than 50% in coordination of care (as documented) at patient's floor/unit and/or counseling patient: 25 - 35 minutes Plan of Care Discussed with: patient Internal Medicine: Result - Labs CBC & Chem 7: 07/01/18 05:21 07/01/18 05:21 Labs: Short CBC 07/01/18 Range/Units 05:21 WBC 14.8 H (4.3-11.1) K/mcL Hgb 13.7 (12.9-16.9) g/dL Hct 41.8 (37.5-50.1) % Plt Count 231 (140-400) K/mcL Neutrophils # 12.3 H (1.6-8.9) K/mcL BMP 07/01/18 05:21 Sodium 135 L Potassium 4.6 Chloride 95 L Carbon Dioxide 33 H BUN 28 H Creatinine 1.01 Glucose 177 H Calcium 9.0 - ABG Interpretation ABG results: PT/INR, D-dimer PT 26.6 Seconds (9.4-12.1) H 07/01/18 05:21 - VTE Documentation of Mechanical Device: Intermittent pneumatic compression device Consult Discharge Plan - Plan Referrals: Srinivas Pearce DO [Primary Care Provider] - (2) Pneumonia Qualifiers: Pneumonia type: due to unspecified organism Laterality: bilateral Lung location: lower lobe of lung Qualified Code(s): J18.1 - Lobar pneumonia, unspecified organism (8) Hypertension Qualifiers: Hypertension type: essential hypertension Qualified Code(s): I10 - Essential (primary) hypertension
[2018-07-01] MEDS ORDERED: *HR* Warfarin 5 MG TABLET PO ONE (18:00)
[2018-07-02] MEDS: Ipratropium/Albuterol Neb 3 ML IH SCH ×7 (00:17→23:38)
[2018-07-02] MEDS: Benzonatate 100 MG CAPSULE PO PRN ×2 (05:16→15:54)
[2018-07-02] MEDS: *HR* HYDROcodone/Acet 10/325 mg TABLET PO PRN ×3 (05:16→21:09)
[2018-07-02] MEDS: Budesonide/Formoterol 160/4.5 1 PUFF INH IH SCH ×2 (07:22→19:30)
[2018-07-02] MEDS: predniSONE 20 MG TABLET PO SCH (08:42)
[2018-07-02] MEDS: Furosemide 40 MG TABLET PO SCH ×2 (08:43→17:34)
[2018-07-02] MEDS: Lisinopril 20 MG TABLET PO SCH (08:43)
[2018-07-02] MEDS: Gabapentin 300 MG CAPSULE PO SCH ×3 (08:43→21:01)
[2018-07-02] MEDS: ALPRAZolam 1 MG TABLET PO SCH ×2 (08:43→21:01)
[2018-07-02 09:28] LABS: Basophils # 0.1 K/mcL (0.0-0.2); Basophils % 0.3 %; Immature Granulocytes % 4.2 % (0-4); Lymphocytes # 1.8 K/mcL (0.6-4.6); Lymphocytes % 10.1 %; Mean Corpuscular HGB Conc 33.3 g/dL (31.6-35.5); Mean Corpuscular Hemoglobin 30.6 pg (28.0-33.3); Mean Corpuscular Volume 91.9 fL (83.0-100.0); Monocytes # 2.4 K/mcL (0.0-1.3); Monocytes % 13.2 %; Neutrophils # 12.8 K/mcL (1.6-8.9); Platelet Count 214 K/mcL (140-400); Red Blood Count 4.57 M/mcL (4.19-5.50); Red Cell Distribution Width 13.2 % (11.5-14.5); Segmented Neutrophils % 72.2 %
[2018-07-02 09:44] LABS: BUN/Creatinine Ratio 30 (6-26); Blood Urea Nitrogen 35 mg/dL (6-20); Calcium 8.7 mg/dL (8.6-10.3); Carbon Dioxide 29 mEq/L (23-29); Chloride 96 mEq/L (98-107); Glucose 197 mg/dL (70-105); Magnesium 2.6 mg/dL (1.6-2.6); Osmolality,Calculated 293 (280-300); Potassium 4.5 mEq/L (3.5-5.1); Sodium 135 mEq/L (136-145); eGFR For Non-African Americans > 60 (> 60)
[2018-07-02 09:47] LABS: INR 3.7; Prothrombin Time 41.7 Seconds (9.4-12.1)
--- NOTE | 2018-07-02 11:50 | Internal Med Progress Note ---
Hospitalist Progress Note - Encounter Date of Encounter: 07/02/18 Time of Encounter: 09:45 - Subjective Interval History: Patient feels that he is finally improving slightly, less SOB and cough. However, he continues to be extremely dyspneic with exertion with tachycardia of 130-140s upon ambulation. No chest pain or palpitation however - Exam Vitals: Temp Pulse Resp BP Pulse Ox 97.9 F 76 18 127/75 93 07/02/18 06:44 07/02/18 06:44 07/02/18 11:16 07/02/18 06:44 07/02/18 11:16 Exam: General: Alert and oriented, not in distress at rest but severely dyspneic with mild exertion Cardiovascular:Normal S1 & S2, No JVD. Pulse regular, tachycardic on exertion Lungs: Improving bilateral diffuse wheezes Abdomen:Soft, non-tender, no rigidity. Extremities:L calf tenderness without obvious swelling or redness Neurological:Normal cognition and motor skills. Non-focal - Assessment and Plan (1) Acute and chronic respiratory failure with hypoxia Current Visit: Yes Status: Acute Assessment and Plan: Presented to the ED with increased productive cough with shortness of breath as well as blood tinged sputum CT chest shows diffuse bilateral groundglass nodular opacities. Rhinovirus +ve, strep/legionella ag -ve. sputum c/s normal respi gemma, blood cultures -ve requires 2L at baseline, currently on 2-3L and continues to remain quite dyspneic on exertion with tachycardia completed 7 days of abx 07/01. Appreciate pulm input; steroid swithced to PO 60mg 07/01 and taper 10mg weekly continue anti-tussive wean O2 as tolerated, likely be discharged tomorrow if he continues to improve (2) Pneumonia Current Visit: Yes Status: Acute Assessment and Plan: as above (3) Acute exacerbation of chronic obstructive airways disease Current Visit: Yes Status: Acute Assessment and Plan: History of COPD is on 2-3L of home oxygen, complicated by PNA and rhinovirus infection Continue scheduled DuoNebs and abx as above. Switching steroid to PO 60mg per pulm rec wean O2 as tolerated (4) Left leg pain Current Visit: Yes Status: Acute Assessment and Plan: Complaint of left calf pain, hx of DVT with factor V Leiden doppler overnight was negative for SVT/DVT, suspect muscle spasm trial of baclofen (5) Hemoptysis Current Visit: Yes Status: Resolved Assessment and Plan: likely due to PNA, resolved since the presentation pt is on Coumadin for factor V Leiden with multiple DVT/PE which was resumed on 4/10 INR supratherapeutic, continue to monitor (6) Elevated troponin Current Visit: Yes Status: Acute Assessment and Plan: Initial troponin was elevated at 0.19 -> 0.03 without concerning EKG changes no history of CAD, likely due to demand ischemia from respiratory distress echocardiogram unremarkable for outpatient ischemic workup (7) Factor V Leiden Current Visit: Yes Status: Chronic Assessment and Plan: complicated by DVT/PE, Coumadin resumed on 4/10 Daily INR, pharmacy to help dosing with Coumadin (8) Hypertension Current Visit: No Status: Chronic Assessment and Plan: Continue home meds (9) DVT prophylaxis Current Visit: Yes Status: Acute Assessment and Plan: supratherapeutic INR - Time Spent with Patient Total time spent is greater than 50% in coordination of care (as documented) at patient's floor/unit and/or counseling patient: 25 - 35 minutes Plan of Care Discussed with: patient Internal Medicine: Result - Labs CBC & Chem 7: 07/02/18 08:52 07/02/18 08:52 Labs: Short CBC 07/02/18 Range/Units 08:52 WBC 17.8 H (4.3-11.1) K/mcL Hgb 14.0 (12.9-16.9) g/dL Hct 42.0 (37.5-50.1) % Plt Count 214 (140-400) K/mcL Neutrophils # 12.8 H (1.6-8.9) K/mcL BMP 07/02/18 08:52 Sodium 135 L Potassium 4.5 Chloride 96 L Carbon Dioxide 29 BUN 35 H Creatinine 1.15 Glucose 197 H Calcium 8.7 - ABG Interpretation ABG results: PT/INR, D-dimer PT 41.7 Seconds (9.4-12.1) H D 07/02/18 08:52 - VTE Documentation of Mechanical Device: Intermittent pneumatic compression device Consult Discharge Plan - Plan Referrals: Srinivas Pearce DO [Primary Care Provider] - (2) Pneumonia Qualifiers: Pneumonia type: due to unspecified organism Laterality: bilateral Lung location: lower lobe of lung Qualified Code(s): J18.1 - Lobar pneumonia, unspecified organism (8) Hypertension Qualifiers: Hypertension type: essential hypertension Qualified Code(s): I10 - Essential (primary) hypertension
[2018-07-03] MEDS: *HR* HYDROcodone/Acet 10/325 mg TABLET PO PRN ×4 (03:32→22:33)
[2018-07-03] MEDS: Ipratropium/Albuterol Neb 3 ML IH SCH ×5 (03:50→20:07)
[2018-07-03 07:07] LABS: Basophils # 0.1 K/mcL (0.0-0.2); Basophils % 0.5 %; Eosinophils % 0.2 %; Hematocrit 43.2 % (37.5-50.1); Hemoglobin 14.1 g/dL (12.9-16.9); Immature Granulocytes % 3.7 % (0-4); Lymphocytes % 16.2 %; Mean Corpuscular HGB Conc 32.6 g/dL (31.6-35.5); Mean Corpuscular Hemoglobin 30.6 pg (28.0-33.3); Mean Corpuscular Volume 93.7 fL (83.0-100.0); Mean Platelet Volume 9.1 fL (9.4-12.4); Monocytes # 2.6 K/mcL (0.0-1.3); Monocytes % 14.3 %; Platelet Count 203 K/mcL (140-400); Red Blood Count 4.61 M/mcL (4.19-5.50); Red Cell Distribution Width 13.4 % (11.5-14.5); Segmented Neutrophils % 65.1 %
[2018-07-03 07:14] LABS: INR 2.7; Prothrombin Time 30.5 Seconds (9.4-12.1)
[2018-07-03] MEDS: Budesonide/Formoterol 160/4.5 1 PUFF INH IH SCH ×2 (07:22→20:08)
[2018-07-03 07:30] LABS: BUN/Creatinine Ratio 30 (6-26); Blood Urea Nitrogen 31 mg/dL (6-20); Calcium 8.3 mg/dL (8.6-10.3); Carbon Dioxide 32 mEq/L (23-29); Chloride 97 mEq/L (98-107); Glucose 113 mg/dL (70-105); Osmolality,Calculated 289 (280-300); Potassium 4.6 mEq/L (3.5-5.1); Sodium 136 mEq/L (136-145); eGFR For Non-African Americans > 60 (> 60)
[2018-07-03] MEDS ORDERED: Acetylcysteine 10% 2 ML INHSOL IH SCH (10:00)
[2018-07-03] MEDS: predniSONE 20 MG TABLET PO SCH (10:02)
[2018-07-03] MEDS: ALPRAZolam 1 MG TABLET PO SCH ×2 (10:02→22:33)
[2018-07-03] MEDS: Furosemide 40 MG TABLET PO SCH ×2 (10:03→16:41)
[2018-07-03] MEDS: Lisinopril 20 MG TABLET PO SCH (10:03)
[2018-07-03] MEDS: Gabapentin 300 MG CAPSULE PO SCH ×3 (10:03→22:34)
[2018-07-03] MEDS: Benzonatate 100 MG CAPSULE PO PRN ×2 (10:05→16:41)
[2018-07-03] MEDS: Acetylcysteine 10% 2 ML INHSOL IH SCH ×3 (11:26→20:07)
--- NOTE | 2018-07-03 13:34 | Internal Med Progress Note ---
Hospitalist Progress Note - Encounter Date of Encounter: 07/03/18 Time of Encounter: 13:31 - Subjective Interval History: Patient seen and examined at bedside. Patient states that he feels slightly better today but continues to feel short of breath. He reports cough and thick mucus that he is having difficulty to expectorating. He reports this is causing him severe discomfort. Denies fever, chills, chest pain. - Exam Vitals: Temp Pulse Resp BP Pulse Ox 99.1 F 72 17 141/82 92 07/03/18 08:13 07/03/18 11:57 07/03/18 11:57 07/03/18 11:57 07/03/18 11:57 Exam: Gen.: Alert and oriented 3, mild respiratory distress Heart: Regular rate and rhythm, no murmurs, gallops Lungs: Diffuse bilateral wheezes, no rales, rhonchi - Assessment and Plan (1) Acute exacerbation of chronic obstructive airways disease Current Visit: Yes Status: Acute Assessment and Plan: Secondary to pneumonia in rhinovirus infection overall appears improving but will have a prolonged course due to the rhinovirus infection. Evaluated by pulmonology and appreciate their recommendations, will discharge home on a slow taper. I do feel like he is close to discharge over the patient does not feel comfortable going home today. We will add N-acetylcysteine inhalation to help with his thick mucus. (2) Hemoptysis Current Visit: Yes Status: Resolved Assessment and Plan: Resolved at this time. Likely due to pneumonia/COPD exacerbation. (3) Elevated troponin Current Visit: Yes Status: Acute Assessment and Plan: Patient had single isolated elevated troponin at 0.19, did resolve. Chest pain- free. (4) Pneumonia Current Visit: Yes Status: Acute Assessment and Plan: Patient has evidence of pneumonia on CT. Did complete 7 days of antibiotics. Continue supportive care for rhinovirus infection (5) Factor V Leiden Current Visit: Yes Status: Chronic Assessment and Plan: No evidence of PE on CT KALANI on presentation. Continue Coumadin with goal INR 2- 3. (6) Hypertension Current Visit: No Status: Chronic Assessment and Plan: Blood pressure stable. (7) Acute and chronic respiratory failure with hypoxia Current Visit: Yes Status: Acute Assessment and Plan: Currently on home O2 dose. Continue home oxygen to maintain oxygen saturation greater than 88%. (8) DVT prophylaxis Current Visit: Yes Status: Acute Assessment and Plan: Currently on Coumadin - Time Spent with Patient Total time spent is greater than 50% in coordination of care (as documented) at patient's floor/unit and/or counseling patient: Internal Medicine: Result - Labs CBC & Chem 7: 07/03/18 06:26 07/03/18 06:26 Labs: Short CBC 07/03/18 Range/Units 06:26 WBC 18.4 H (4.3-11.1) K/mcL Hgb 14.1 (12.9-16.9) g/dL Hct 43.2 (37.5-50.1) % Plt Count 203 (140-400) K/mcL Neutrophils # 12.0 H (1.6-8.9) K/mcL BMP 07/03/18 06:26 Sodium 136 Potassium 4.6 Chloride 97 L Carbon Dioxide 32 H BUN 31 H Creatinine 1.03 Glucose 113 H Calcium 8.3 L - ABG Interpretation ABG results: PT/INR, D-dimer PT 30.5 Seconds (9.4-12.1) H 07/03/18 06:26 - VTE Documentation of Mechanical Device: Intermittent pneumatic compression device Consult Discharge Plan - Plan Referrals: Srinivas Pearce DO [Primary Care Provider] - (4) Pneumonia Qualifiers: Pneumonia type: due to unspecified organism Laterality: bilateral Lung location: lower lobe of lung Qualified Code(s): J18.1 - Lobar pneumonia, unspecified organism (6) Hypertension Qualifiers: Hypertension type: essential hypertension Qualified Code(s): I10 - Essential (primary) hypertension
[2018-07-03] MEDS ORDERED: *HR* Warfarin 5 MG TABLET PO ONE (18:00)
[2018-07-04] MEDS: Ipratropium/Albuterol Neb 3 ML IH SCH ×4 (00:01→11:10)
[2018-07-04] MEDS: Acetylcysteine 10% 2 ML INHSOL IH SCH ×4 (00:01→11:10)
[2018-07-04] MEDS: *HR* HYDROcodone/Acet 10/325 mg TABLET PO PRN ×2 (05:10→13:42)
[2018-07-04] MEDS: Budesonide/Formoterol 160/4.5 1 PUFF INH IH SCH (07:20)
[2018-07-04 07:37] LABS: Basophils # 0.1 K/mcL (0.0-0.2); Basophils % 0.3 %; Eosinophils # 0.1 K/mcL (0.0-0.6); Eosinophils % 0.3 %; Hematocrit 42.4 % (37.5-50.1); Hemoglobin 13.8 g/dL (12.9-16.9); Immature Granulocytes % 3.2 % (0-4); Lymphocytes % 17.4 %; Mean Corpuscular HGB Conc 32.5 g/dL (31.6-35.5); Mean Corpuscular Hemoglobin 30.5 pg (28.0-33.3); Mean Corpuscular Volume 93.6 fL (83.0-100.0); Mean Platelet Volume 9.2 fL (9.4-12.4); Monocytes % 11.6 %; Neutrophils # 11.5 K/mcL (1.6-8.9); Platelet Count 170 K/mcL (140-400); Red Blood Count 4.53 M/mcL (4.19-5.50); Red Cell Distribution Width 13.4 % (11.5-14.5); Segmented Neutrophils % 67.2 %
[2018-07-04 07:57] LABS: BUN/Creatinine Ratio 28 (6-26); Blood Urea Nitrogen 24 mg/dL (6-20); Calcium 8.4 mg/dL (8.6-10.3); Carbon Dioxide 33 mEq/L (23-29); Chloride 95 mEq/L (98-107); Glucose 134 mg/dL (70-105); Magnesium 2.5 mg/dL (1.6-2.6); Osmolality,Calculated 286 (280-300); Potassium 4.8 mEq/L (3.5-5.1); Sodium 135 mEq/L (136-145); eGFR For Non-African Americans > 60 (> 60)
[2018-07-04 08:01] LABS: INR 2.1; Prothrombin Time 23.8 Seconds (9.4-12.1)
[2018-07-04 08:10] VITALS: BP 133/88
[2018-07-04] MEDS: predniSONE 20 MG TABLET PO SCH (08:22)
[2018-07-04] MEDS: Lisinopril 20 MG TABLET PO SCH (08:23)
[2018-07-04] MEDS: Gabapentin 300 MG CAPSULE PO SCH (08:23)
[2018-07-04] MEDS: Furosemide 40 MG TABLET PO SCH (08:23)
[2018-07-04] MEDS: ALPRAZolam 1 MG TABLET PO SCH (08:23)
--- NOTE | 2018-07-04 09:20 | Discharge Summary ---
- NOTES TO OUTPATIENT PROVIDER Notes to Outpatient Provider: On slow prednisone taper, will need to follow closely with pulm Orders not resulted at time of discharge: Pending orders 07/05/18 04:00 INR/PT [Prothrombin Time INR] [COAG] AM 0400 07/06/18 04:00 INR/PT [Prothrombin Time INR] [COAG] AM 0400 Date of Encounter: 07/04/18 Time of Encounter: 09:18 - Discharge Diagnosis (1) Acute exacerbation of chronic obstructive airways disease Priority: Primary Status: Acute (2) Hemoptysis Priority: Secondary Status: Resolved (3) Elevated troponin Priority: Secondary Status: Acute (4) Pneumonia Priority: Primary Status: Acute Qualifiers: Pneumonia type: due to unspecified organism Laterality: bilateral Lung location: lower lobe of lung Qualified Code(s): J18.1 - Lobar pneumonia, unspecified organism (5) Factor V Leiden Priority: Secondary Status: Chronic (6) Hypertension Priority: Secondary Status: Chronic Qualifiers: Hypertension type: essential hypertension Qualified Code(s): I10 - Essential (primary) hypertension (7) Acute and chronic respiratory failure with hypoxia Priority: Secondary Status: Acute Hospital course: Mr. Oliva is a 58 year old male with history of COPD, factor V Leiden, anxiety presents with shortness of breath and cough. He was found to have rhinovirus resulting in COPD exacerbation. He had mild amount of hemoptysis which is likely due to his coughing and his respiratory illness. Pulmonology was consulted who did not recommend bronchoscopy. Patient was treated with antibiotics, steroids, breathing treatments. He is gradually improved. Pulmonology recommended a slow taper of prednisone which had been prescribed for the patient. Patient will be discharged home in stable condition. Discharge discussed with: patient - Time Spent with Patient Total time spent providing and/or coordinating discharge services: - Discharge Medications Prescriptions: New Acetylcysteine 10% 2 ml IH [id number] PRN #30 inhsol PRN Reason: Cough predniSONE [PredniSONE] See Taper PO DAILY #135 tablet Continue Gabapentin [Neurontin] 300 mg PO TID DULoxetine [Cymbalta] 30 mg PO DAILY Atorvastatin [Lipitor] 10 mg PO HS Lisinopril [Zestril] 20 mg PO DAILY Ipratropium/Albuterol Neb [Duoneb] 3 ml IH Q6H PRN 30 Days inhsol PRN Reason: Shortness Of Breath/Wheezing Metoprolol [Lopressor] 12.5 mg PO BID tablet Tizanidine HCl [Zanaflex] 4 mg PO TID PRN #10 capsule PRN Reason: Muscle Spasm Furosemide [Lasix] 40 mg PO BID #60 tablet ALPRAZolam [Xanax 1 MG Tablet] 1 mg PO BID PRN PRN Reason: Anxiety Oxygen 3 l NS CONT Albuterol Sulfate [Albuterol Inhaler] 2 puff IH Q4HR #1 inhaler Warfarin [Coumadin] 10 mg PO DAILY Home Medications: Gabapentin [Neurontin] 300 mg PO TID 03/27/15 [History] DULoxetine [Cymbalta] 30 mg PO DAILY 02/27/17 [History] Atorvastatin [Lipitor] 10 mg PO HS 03/23/17 [History] Lisinopril [Zestril] 20 mg PO DAILY 03/23/17 [History] Ipratropium/Albuterol Neb [Duoneb] 3 ml IH Q6H PRN 30 Days inhsol 03/31/17 [Rx] Metoprolol [Lopressor] 12.5 mg PO BID tablet 04/04/17 [Rx] Tizanidine HCl [Zanaflex] 4 mg PO TID PRN #10 capsule 04/04/17 [Rx] Furosemide [Lasix] 40 mg PO BID #60 tablet 04/05/17 [Rx] ALPRAZolam [Xanax 1 MG Tablet] 1 mg PO BID PRN 04/17/17 [History] Oxygen 3 l NS CONT 04/17/17 [History] Albuterol Sulfate [Albuterol Inhaler] 2 puff IH Q4HR #1 inhaler 09/25/17 [Rx] Warfarin [Coumadin] 10 mg PO DAILY 03/25/18 [History] Acetylcysteine 10% 2 ml IH [id number] PRN #30 inhsol 07/04/18 [Rx] predniSONE [PredniSONE] See Taper PO DAILY #135 tablet 07/04/18 [Rx] Allergies/Adverse Reactions: Allergy/AdvReac Type Severity Reaction Status Date / Time No Known Allergies Allergy Verified 06/26/18 13:36 Date of admission: 06/27/18 18:00 Primary care physician: Srinivas Pearce DO Consults: 06/27/18 16:47 Consult to Nurse Navigator [CONS] Routine Comment: Pneumonia; COPD 06/30/18 10:31 Consult to Pulmonology [CONS] Routine Consulting Provider: [facility] Reason for Consult: COPD exacerbation, persistent despite 5 days of tx Call Completed: Yes Discharging clinician: Bo Zaidi Anticipated date of discharge: 07/04/18 - Constitutional Vitals: Temp Pulse Resp BP Pulse Ox 98.6 F 84 18 133/88 96 07/04/18 08:08 07/04/18 08:08 07/04/18 08:08 07/04/18 08:08 07/04/18 08:08 General appearance: Present: A&O X 3 Exam: . - Respiratory Respiratory exam: Present: wheezes (mild end expiratory). Absent: rales, rhonchi - Cardiovascular Cardiovascular exam: Present: RRR. Absent: gallop, rubs, systolic murmur - Patient Status Disposition: Home, Self-Care Condition: Fair Functional capacity at discharge: independent ambulation Overall status at discharge: patient is progressing back to baseline - Discharge Instructions Follow Up With: Srinivas Pearce DO [Primary Care Provider] - (1 week) Sergey Zuniga MD [Partnered Physician] - (1-2 weeks) Additional Instructions: Please follow-up with your primary care physician within one week. Please follow up with pulmonology as scheduled. Please resume your home medications. Please take your prednisone taper as prescribed. Please use your nebulizer. Please continue to wear oxygen. Please return for new or worsening symptoms. - Diet and Activity Activity: increase activity as tolerated, wear oxygen at all times Diet: low salt diet - VTE Documentation of Mechanical Device: Intermittent pneumatic compression device
[2018-07-04] MEDS: Benzonatate 100 MG CAPSULE PO PRN (13:42)
[2018-07-04] MEDS ORDERED: *HR* Warfarin 7.5 MG TABLET PO ONE (18:00)
== END 2018-07-04 15:10 | disposition home or self-care (01) | DRG 193 ==
LOC: EMEROOARM 13:33 → 2NENU 13:33 → SUATTDRO 19:20 → 2NENU 20:12 → SUATTDRO 06-27 18:00
PROVIDERS: ADMIT Internal Medicine Nephrology; ATTEND Internal Medicine

== ENCOUNTER 2018-08-03 13:02 | Inpatient (IN) ==
[2018-08-03] MEDS ORDERED: Ipratropium/Albuterol Neb 3 ML ONE ×2 (13:14→13:15)
[2018-08-03] MEDS ORDERED: Ipratropium/Albuterol Neb 3 ML IH ONE (13:15)
[2018-08-03] MEDS ORDERED: Isovue-370 500 ML BOTTLE IVP ONE (13:15)
--- NOTE | 2018-08-03 13:29 | Emergency Department Note ---
Disposition Clinical Impression: Chest pain Qualifiers: Chest pain type: unspecified Qualified Code(s): R07.9 - Chest pain, unspecified Pneumonia Qualifiers: Pneumonia type: due to unspecified organism Laterality: bilateral Lung location: lower lobe of lung Qualified Code(s): J18.1 - Lobar pneumonia, unspecified organism Disposition: Admitted As Inpatient Condition: Fair Time of Disposition: 23:50 SOB HPI - General Chief Complaint: ED Shortness of Breath/Dyspnea Stated Complaint: ERNST Time Seen by Provider: 08/03/18 13:14 Source: patient Mode of arrival: ambulatory Limitations: no limitations Nursing Notes Reviewed: Yes Vital Signs Reviewed: Yes - History of Present Illness 58-year-old male past medical history of factor V Leiden and for previous pulmonary embolisms most recently 4 years ago presenting for 1 month history of shortness of breath. Patient states that he has been battling pneumonia for the past month was put on Levaquin and prednisone and has had his daily Coumadin Haft from 10 mg to 5 mg per day due to the prednisone. Patient states that he has had progressive worsening chest pain and shortness of breath finally reaching the apex today. Patient states he has had headaches, lightheadedness, dizziness, numbness and paresthesias, chest pain shortness of breath, hemoptysis, vomiting, in addition to the symptoms mentioned above. Pt Subjective Complaint: shortness of breath Onset (ago): month(s) Context: recent illness Severity: severe Consistency/Duration: gradually worsening Improves with: oxygen, bronchodilators, upright position, medication Worsens with: lying flat, movement, coughing, inspiration Known history of: COPD, recurrent pneumonia, PE Associated symptoms: Reports: chest pain, pain with inspiration, cough, wheezing, hemoptysis, diaphoresis, nausea/vomiting Treatment prior to arrival: oxygen, bronchodilator Cough present: Yes Cough Description: Involuntary Cough Frequency: Continuous Sputum production: No Sputum Color: Blood Streaked - Related Data Home Medications Medication Instructions Recorded Confirmed Gabapentin [Neurontin] 300 mg PO TID 03/27/15 08/03/18 DULoxetine [Cymbalta] 30 mg PO HS 02/27/17 08/03/18 Atorvastatin [Lipitor] 10 mg PO HS 03/23/17 08/03/18 Lisinopril [Zestril] 20 mg PO 1800 03/23/17 08/03/18 ALPRAZolam [Xanax 1 MG Tablet] 1 mg PO BID PRN 04/17/17 08/03/18 Albuterol Sulfate [Albuterol 2 puff IH Q4HR PRN 08/03/18 08/03/18 Inhaler] Ipratropium Neb [Atrovent Neb] 0.5 mg IH Q6HR PRN 08/03/18 08/03/18 Levalbuterol Neb [Xopenex Neb] 1.25 mg IH Q6H PRN 08/03/18 08/03/18 Warfarin Sodium 5 mg PO SUTUWEFR 08/03/18 08/03/18 Warfarin Sodium 7.5 mg PO MOTHSA 08/03/18 08/03/18 Previous Rx's Medication Instructions Recorded Metoprolol [Lopressor] 12.5 mg PO BID tablet 04/04/17 Tizanidine HCl [Zanaflex] 4 mg PO TID PRN #10 capsule 04/04/17 Furosemide [Lasix] 40 mg PO BID #60 tablet 04/05/17 Allergies Allergy/AdvReac Type Severity Reaction Status Date / Time No Known Allergies Allergy Verified 07/29/18 00:33 Review of Systems: Constitutional: Admits: fever, chills Cardiovascular: Admits: chest pain Respiratory: Admits: dyspnea, hemoptysis, cough Gastrointestinal: Admits: abdominal pain, nausea, vomiting, diarrhea, , hematochezia, denies: constipation, hematemesis, melena, Genitourinary: Denies: hematuria Musculoskeletal: Denies: back pain, neck pain Admits: Admits: headache, weakness, numbness, paresthesias Endocrine: Admits: fatigue All systems ED: reviewed and negative except as stated. Review of Systems: As Per HPI Past Medical History - Past Medical History Medical history: Reports: COPD, DVT, hypertension, pulmonary embolus, other Surgical history: Reports: non-contributory Psychiatric history: Reports: anxiety - Social History Smoking Status: Former smoker Smokeless Tobacco Status: Yes Alcohol use: Reports: none Drug use: Reports: none Physical Exam Constitutional: Patient in moderate respiratory distress, otherwise, alert-and-o riented, engaged to conversation, speech is fluid, answers questions appropriately Neuro: GCS 15, no overt focal neurological deficits Head: Atraumatic, normocephalic Eyes: Pupils equal, round and reactive to light, no scleral icterus, no conjunctival injection Neck: Trachea midline without deviation. Anterior neck is supple without swelling. *Chest: Symmetric chest wall rise *Heart: Cardiac rate is tachycardic into the 120s, otherwise regular with S1 and S2 , no S3 or S4 appreciated, no murmurs, gallops, rubs, or clicks. *Lungs: Lungs display diffuse in respiratory and expiratory wheezes, patient with prolonged expiratory phase and accessory use muscles of respiration. Abdomen: Abdomen is rotund, soft to palpation, normal bowel sounds. No abdominal bruit auscultated. Non-distended, non-rigid, no organomegaly, no ascites appreciated. No pulsatile mass, no tenderness or guarding to palpation in all four quadrants, no rebound Extremities: Normal capillary refill without evidence of pedal edema, joint swelling or erythema. Pulses/motor/sensory intact in all 4 extremities. Psychiatric exam: Patient appears anxious, Integumentary: Patient is pale and diaphoretic, no cyanosis - General Limitations: no limitations General appearance: alert, in no apparent distress Course Course Narrative: Patient states he took DuoNeb's this morning with some relief of symptoms. Patient states she is unable to lay back without feeling he is "choking" Previous history of PE with recent change and warfarin dose Recent pneumonia diagnosis Concern for PE versus ACS EKG, troponin, CTA Screening labs DuoNeb's for immediate management of patient's symptoms. Vital Signs Temperature 100.1 F H 08/03/18 13:11 Pulse Rate 119 08/03/18 13:11 Respiratory Rate 18 08/03/18 13:11 Blood Pressure 134/108 08/03/18 13:11 O2 Sat by Pulse Oximetry 94 08/03/18 13:11 Temperature 98.4 F 08/03/18 23:10 Pulse Rate 63 08/03/18 23:10 Respiratory Rate 16 08/03/18 23:10 Blood Pressure 111/81 08/03/18 23:10 O2 Sat by Pulse Oximetry 94 08/03/18 23:10 Oxygen Delivery Oxygen Delivery Room Air Shortness of Breath/Dyspnea - MDM Narrative Medical decision making narrative: Patient with hospitalist medicine service for further evaluation and management of pneumonia - Lab Data Lab results reviewed: Yes I reviewed the patient's lab results. Result diagrams: 08/03/18 13:34 08/03/18 13:33 Lab Results 08/03/18 08/03/18 08/03/18 Range/Units 13:33 13:34 13:34 WBC 17.8 H D (4.3-11.1) K/mcL RBC 4.91 (4.19-5.50) M/mcL Hgb 14.9 (12.9-16.9) g/dL Hct 44.1 (37.5-50.1) % MCV 89.8 (83.0-100.0) fL MCH 30.3 (28.0-33.3) pg MCHC 33.8 (31.6-35.5) g/dL RDW 13.3 (11.5-14.5) % Plt Count 262 (140-400) K/mcL MPV 9.2 L (9.4-12.4) fL Immature Gran % 0.5 (0-4) % Seg Neutrophils % 71.6 % Lymphocytes % 14.7 % Monocytes % 12.5 % Eosinophils % 0.5 % Basophils % 0.2 % Neutrophils # 12.7 H (1.6-8.9) K/mcL Lymphocytes # 2.6 (0.6-4.6) K/mcL Monocytes # 2.2 H (0.0-1.3) K/mcL Eosinophils # 0.1 (0.0-0.6) K/mcL Basophils # 0.0 (0.0-0.2) K/mcL PT 17.4 H (9.4-12.1) Seconds INR 1.5 Sodium 139 (136-145) mEq/L Potassium 3.2 L (3.5-5.1) mEq/L Chloride 96 L (98-107) mEq/L Carbon Dioxide 34 H (23-29) mEq/L BUN 13 (6-20) mg/dL Creatinine 1.00 (0.70-1.30) mg/dL Est GFR ( Amer) > 60 (> 60) Est GFR (Non-Af Amer) > 60 (> 60) BUN/Creatinine Ratio 13 (6-26) Glucose 119 H (70-105) mg/dL Calculated Osmolality 289 (280-300) Lactic Acid (0.5-2.2) mmol/L Calcium 10.4 H (8.6-10.3) mg/dL Troponin I < 0.03 (< 0.04) ng/mL Urine Color (Yellow) Urine Clarity (Clear) Urine pH (5.0-8.0) pH Units Ur Specific Rover (1.010-1.025) Urine Protein (Neg-Trace) mg/dL Urine Glucose (UA) (Normal) mg/dL Urine Ketones (Negative) mg/dL Urine Blood (Negative) Urine Nitrite (Negative) Urine Bilirubin (Negative) Urine Urobilinogen (Normal) mg/dL Ur Leukocyte Esterase (Negative) Ur Culture Indicated? (NO) 08/03/18 08/03/18 Range/Units 14:18 15:58 WBC (4.3-11.1) K/mcL RBC (4.19-5.50) M/mcL Hgb (12.9-16.9) g/dL Hct (37.5-50.1) % MCV (83.0-100.0) fL MCH (28.0-33.3) pg MCHC (31.6-35.5) g/dL RDW (11.5-14.5) % Plt Count (140-400) K/mcL MPV (9.4-12.4) fL Immature Gran % (0-4) % Seg Neutrophils % % Lymphocytes % % Monocytes % % Eosinophils % % Basophils % % Neutrophils # (1.6-8.9) K/mcL Lymphocytes # (0.6-4.6) K/mcL Monocytes # (0.0-1.3) K/mcL Eosinophils # (0.0-0.6) K/mcL Basophils # (0.0-0.2) K/mcL PT (9.4-12.1) Seconds INR Sodium (136-145) mEq/L Potassium (3.5-5.1) mEq/L Chloride (98-107) mEq/L Carbon Dioxide (23-29) mEq/L BUN (6-20) mg/dL Creatinine (0.70-1.30) mg/dL Est GFR ( Amer) (> 60) Est GFR (Non-Af Amer) (> 60) BUN/Creatinine Ratio (6-26) Glucose (70-105) mg/dL Calculated Osmolality (280-300) Lactic Acid 1.6 (0.5-2.2) mmol/L Calcium (8.6-10.3) mg/dL Troponin I (< 0.04) ng/mL Urine Color Yellow (Yellow) Urine Clarity Clear (Clear) Urine pH 8.0 (5.0-8.0) pH Units Ur Specific Rover 1.010 (1.010-1.025) Urine Protein Negative (Neg-Trace) mg/dL Urine Glucose (UA) Normal (Normal) mg/dL Urine Ketones Negative (Negative) mg/dL Urine Blood Negative (Negative) Urine Nitrite Negative (Negative) Urine Bilirubin Negative (Negative) Urine Urobilinogen Normal (Normal) mg/dL Ur Leukocyte Esterase Negative (Negative) Ur Culture Indicated? NO (NO) - Radiology Data Radiology results reviewed: Yes I reviewed the patient's radiology results. Chest CTA 08/03/18 13:15 IMPRESSION: 1. No evidence of acute pulmonary embolism or acute aortic disease. 2. More significant left lower lobe atypical nodular infiltrates which may represent atypical pneumonia. No evidence of pleural disease. D/ / 08/03/2018 15:51:54 Renée Shi MD / [facility] Interpreting Provider: Renée Shi MD - EKG Data EKG attestation: Yes I reviewed and interpreted this EKG. EKG results narrative: Patient EKG shows a sinus tachycardia with a heart of 114 bpm, MN interval of 184 ms, QRS duration of 95 ms, QT/QTc interval 314/433 ms respectively. There are no significant ST segment elevations, depressions, pathologic Q waves, abnormal T-wave inversions, nor any other signs of acute ischemic change. EKG performed today is generally consistent with prior EKG performed on 07/29/2018.
[2018-08-03 13:52] LABS: Basophils % 0.2 %; Eosinophils # 0.1 K/mcL (0.0-0.6); Eosinophils % 0.5 %; Hematocrit 44.1 % (37.5-50.1); Hemoglobin 14.9 g/dL (12.9-16.9); Immature Granulocytes % 0.5 % (0-4); Lymphocytes # 2.6 K/mcL (0.6-4.6); Lymphocytes % 14.7 %; Mean Corpuscular HGB Conc 33.8 g/dL (31.6-35.5); Mean Corpuscular Hemoglobin 30.3 pg (28.0-33.3); Mean Corpuscular Volume 89.8 fL (83.0-100.0); Mean Platelet Volume 9.2 fL (9.4-12.4); Monocytes # 2.2 K/mcL (0.0-1.3); Monocytes % 12.5 %; Neutrophils # 12.7 K/mcL (1.6-8.9); Platelet Count 262 K/mcL (140-400); Red Blood Count 4.91 M/mcL (4.19-5.50); Red Cell Distribution Width 13.3 % (11.5-14.5); Segmented Neutrophils % 71.6 %
[2018-08-03] MEDS ORDERED: 0.9 % Sodium Chloride 1,000 ML IVC ONE (13:58)
[2018-08-03 14:02] LABS: INR 1.5; Prothrombin Time 17.4 Seconds (9.4-12.1)
[2018-08-03] MEDS ORDERED: Albuterol 2.5 MG/3 ML NEBULIZER IH ONE (14:07)
[2018-08-03 14:16] LABS: BUN/Creatinine Ratio 13 (6-26); Blood Urea Nitrogen 13 mg/dL (6-20); Calcium 10.4 mg/dL (8.6-10.3); Carbon Dioxide 34 mEq/L (23-29); Chloride 96 mEq/L (98-107); Glucose 119 mg/dL (70-105); Osmolality,Calculated 289 (280-300); Potassium 3.2 mEq/L (3.5-5.1); Sodium 139 mEq/L (136-145); eGFR For Non-African Americans > 60 (> 60)
[2018-08-03 15:53] LABS: Troponin I < 0.03 ng/mL (< 0.04)
[2018-08-03] MEDS ORDERED: cefTRIAXone 1,000 MG in Water for inj. (sterile) 20 ML 10 ML IVP STA (16:08)
[2018-08-03] MEDS ORDERED: Azithromycin 500 MG in D5% in Water 250 ML IVPB ONE (16:08)
[2018-08-03 16:12] LABS: Bilirubin,Urine Negative (Negative); Blood,Urine Negative (Negative); Clarity,Urine Clear (Clear); Color,Urine Yellow (Yellow); Glucose,Urine (UA) Normal (Normal); Ketones,Urine Negative (Negative); Leukocyte Esterase,Urine Negative (Negative); Nitrite,Urine Negative (Negative); Protein,Urine Negative (Neg-Trace); Urobilinogen,Urine Normal (Normal)
[2018-08-03] MEDS ORDERED: Ipratropium/Albuterol Neb 3 ML IH PRN (16:41)
[2018-08-03] MEDS ORDERED: Naloxone 0.4 MG/ML INJ IVP PRN (16:43)
--- NOTE | 2018-08-03 16:52 | Internal Med History&Physical ---
Date of Encounter: 08/03/18 Time of Encounter: 16:49 Internal Medicine - H&P: HPI Chief complaint: SOB Admitted From: Home Plans for Post Hospital Care: Home History of present illness: Mr. Oliva is a 58 year old male with COPD on 3L home O2, factor V Leiden, anxiety presents with shortness of breath. He reports that he has had shortness of breath for the past 1 week that is progressively worsening. Should his trae ath is also associated with a productive cough with minimal sputum, he denies hemoptysis. In addition he complains of wheezing. He has used his nebulizers and he is compliant with his oxygen however he is found no relief. Symptoms are exacerbated by exertion and alleviated by rest and oxygen. On the morning of admission he could not catch his breath and had chest tightness so he decided to come to the emergency department for further evaluation. He was recently started on antibiotics and steroids as outpatient for COPD exacerbation and he reports that he was compliant however found to relief. He reports that he is compliant with his Coumadin and was seen at the Coumadin clinic on 07/30 in his Coumadin dose was decreased as he was on steroids and antibiotics. He denies any previous history of bleeding, he denies ICH. On the emergency department he was found to be tachycardic and tachypneic so CTPA was performed which was negative for PE however it did show More significant left lower lobe atypical nodular infiltrates which may represent atypical pneumonia. No evidence of pleural disease. He was endorsed for admission for further management of his acute hypoxic respiratory failure. Past Med Surg Social Fam HX - Past Medical History Medical history: COPD, DVT, hypertension, pulmonary embolus, other Additional medical history: juan c filter Psychiatric history: anxiety - Past Surgical History Surgical History: non-contributory Additional surgical history: PLACEMENT OF THE IVC FILTER. VASECTOMY - Social History Smoking Status: Former smoker Smokeless Tobacco Status: Yes Alcohol use: none Drug use: none - Family History Father Adopted: No Living Status: Hx Family Cardiac Disorders: Yes (NH) Hx Family Respiratory Disorders: Yes (copd, black lung) Hx Family Cancer: Yes Hx Family GI Disorders: No Mother Adopted: No Living Status: Still Living Hx Family Respiratory Disorders: Yes (copd) Hx Family Cancer: Yes (lung, brain) Hx Family GI Disorders: Yes (colon) Internal Medicine - H&P: Meds Gabapentin [Neurontin] 300 mg PO TID 03/27/15 [History] DULoxetine [Cymbalta] 30 mg PO HS 02/27/17 [History] Atorvastatin [Lipitor] 10 mg PO HS 03/23/17 [History] Lisinopril [Zestril] 20 mg PO 1800 03/23/17 [History] Metoprolol [Lopressor] 12.5 mg PO BID tablet 04/04/17 [Rx] Tizanidine HCl [Zanaflex] 4 mg PO TID PRN #10 capsule 04/04/17 [Rx] Furosemide [Lasix] 40 mg PO BID #60 tablet 04/05/17 [Rx] ALPRAZolam [Xanax 1 MG Tablet] 1 mg PO BID PRN 04/17/17 [History] Albuterol Sulfate [Albuterol Inhaler] 2 puff IH Q4HR PRN 08/03/18 [History] Ipratropium Neb [Atrovent Neb] 0.5 mg IH Q6HR PRN 08/03/18 [History] Levalbuterol Neb [Xopenex Neb] 1.25 mg IH Q6H PRN 08/03/18 [History] Warfarin Sodium 5 mg PO SUTUWEFR 08/03/18 [History] Warfarin Sodium 7.5 mg PO MOTHSA 08/03/18 [History] Allergy/AdvReac Type Severity Reaction Status Date / Time No Known Allergies Allergy Verified 07/29/18 00:33 All Systems PM: A 10-system review of systems was performed and is negative for pertinent findings except as documented above in the HPI. - Constitutional Vitals: Temp Pulse Resp BP Pulse Ox 100.1 F H 100 20 121/75 98 08/03/18 13:11 08/03/18 14:26 08/03/18 15:48 08/03/18 14:26 08/03/18 15:48 Exam: General: Patient is alert, oriented, no acute distress, obese, speaks in full sentences Head: atraumatic, normocephalic, Eye: normal appearance, PERRL, no scleral icterus, no conjunctival injection ENT: mucous membranes moist, normal external ear exam Neck: normal inspection, trachea midline, full ROM, no carotid bruits Chest: normal inspection, symmetric chest rise Respiratory: Distant breath sounds secondary to body habitus, wheezing in the anterior chest, occasional crackles the posterior lung field. Cardiovascular: Regular rate and rhythm. s1 and s2 No clicks, rubs, gallops, or murmors. Abdomen: Bowel sounds present normoactive x-4 quadrants. Abdomen is soft, nondistended. no Epigastric tenderness. No guarding or rebound. No organomegaly noted, obese musculoskeletal: Spontaneously moving all extremities. no edema, no calf tenderness Skin: warm, dry, intact. Neuro: Alert and oriented x3. No focal deficit Psych: Patient's affect is normal Internal Med - H&P Results - Labs CBC & Chem 7: 08/03/18 13:34 08/03/18 13:33 Labs: Short CBC 08/03/18 Range/Units 13:34 WBC 17.8 H D (4.3-11.1) K/mcL Hgb 14.9 (12.9-16.9) g/dL Hct 44.1 (37.5-50.1) % Plt Count 262 (140-400) K/mcL Neutrophils # 12.7 H (1.6-8.9) K/mcL BMP 08/03/18 13:33 Sodium 139 Potassium 3.2 L Chloride 96 L Carbon Dioxide 34 H BUN 13 Creatinine 1.00 Glucose 119 H Calcium 10.4 H Cardiac Enzymes 08/03/18 Range/Units 13:33 Troponin I < 0.03 (< 0.04) ng/mL Urine 08/03/18 Range/Units 15:58 Urine Color Yellow (Yellow) Urine Clarity Clear (Clear) Urine pH 8.0 (5.0-8.0) pH Units Ur Specific [place] 1.010 (1.010-1.025) Urine Protein Negative (Neg-Trace) mg/dL Urine Glucose (UA) Normal (Normal) mg/dL - EKG Data -: EKG Interpreted by Myself EKG shows normal: sinus rhythm - EKG Data Prior EKG available for review: yes When compared to previous EKG: there is no significant change - Impressions ITS Impressions Chest CTA 08/03/18 13:15 IMPRESSION: 1. No evidence of acute pulmonary embolism or acute aortic disease. 2. More significant left lower lobe atypical nodular infiltrates which may represent atypical pneumonia. No evidence of pleural disease. D/ / 08/03/2018 15:51:54 Renée Shi MD / [facility] Interpreting Provider: Renée Shi MD - Assessment and Plan (1) Sepsis Current Visit: Yes Status: Acute Qualifiers: Sepsis type: sepsis due to unspecified organism Qualified Code(s): A41.9 - Sepsis, unspecified organism (2) CAP (community acquired pneumonia) Current Visit: Yes Status: Acute Qualifiers: Laterality: left Lung location: lower lobe of lung Qualified Code(s): J18.1 - Lobar pneumonia, unspecified organism (3) Acute and chronic respiratory failure with hypoxia Current Visit: No Status: Acute (4) Acute exacerbation of chronic obstructive airways disease Current Visit: No Status: Acute (5) Subtherapeutic international normalized ratio (INR) Current Visit: No Status: Acute (6) Factor V Leiden Current Visit: No Status: Chronic (7) History of pulmonary embolism Current Visit: No Status: Chronic (8) Obesity (BMI 30-39.9) Current Visit: No Status: Chronic - Summary of Assessment and Plan Summary of Assessment and Plan: Sepsis secondary to HAP: has had history of multiple hospitalizations ( recently in [place]), leukocytosis and tachycardic, on vancomycin, cefepime and azithromycin, urine antigens, MRSA nasal swab, sputum cultures, follow blood cultures. Lactic acid 1.6, continue with oxygen via nasal cannula and keep saturations above 92%. Acute COPD exacerbation secondary to above: Antibiotics as above, cultures as above, Solu-Medrol 40 mg every 8 hours, continue with DuoNeb's and oxygen via nasal cannula Acute on chonic hypoxic respiratory failure: secondary to above, management as above, PE ruled out Factor V Leiden def, PE: continue coumadin, pharmacy to dose as INR is sub therapeutic will give one dose therapeutic of lovenox- follow INR in AM obesity: was counseled BMI 39.8 hypokalemia: replaced DVT prophylaxis: on Coumadin and received therapeutic lovenox - Time Spent With Patient Total time spent is greater than 50% in coordination of care (as documented) at patient's floor/unit and/or counseling patient: 25 - 35 minutes
[2018-08-03] MEDS ORDERED: *HR* Enoxaparin 150 MG/ML SYRINGE SQ ONE (18:00)
[2018-08-03] MEDS ORDERED: *HR* Warfarin 7.5 MG TABLET PO ONE (18:00)
[2018-08-03] MEDS ORDERED: Warfarin perPT PO PRN (18:00)
[2018-08-03] MEDS: Lisinopril 20 MG TABLET PO SCH (18:00)
[2018-08-03] MEDS: *HR* OxyCODONE/APAP 5/325 TABLET PO PRN (18:29)
[2018-08-03] MEDS: ALPRAZolam 1 MG TABLET PO PRN (20:58)
[2018-08-03] MEDS: Gabapentin 300 MG CAPSULE PO SCH (20:58)
[2018-08-03] MEDS: Furosemide 40 MG TABLET PO SCH (21:03)
[2018-08-03] MEDS: Levalbuterol Neb 1.25 MG/3 ML IH PRN (21:40)
[2018-08-03] MEDS ORDERED: *HR* Heparin 5,000 UNIT/ML VIAL SQ SCH (22:00)
[2018-08-04] MEDS: Cefepime HCl 2,000 MG in 0.9 % Sodium Chloride Mini Bag 100 ML IVPB SCH ×3 (00:22→15:30)
[2018-08-04] MEDS: tiZANidine 4 MG TABLET PO PRN (00:22)
[2018-08-04] MEDS: MethylPREDNISolone 40 MG/ML VIAL IVP SCH ×3 (00:22→15:31)
[2018-08-04] MEDS: *HR* OxyCODONE/APAP 5/325 TABLET PO PRN ×4 (00:22→18:06)
[2018-08-04 06:11] LABS: Basophils % 0.1 %; Eosinophils % 0.1 %; Hematocrit 40.1 % (37.5-50.1); Hemoglobin 13.3 g/dL (12.9-16.9); Lymphocytes # 1.2 K/mcL (0.6-4.6); Lymphocytes % 15.5 %; Mean Corpuscular HGB Conc 33.2 g/dL (31.6-35.5); Mean Corpuscular Hemoglobin 29.8 pg (28.0-33.3); Mean Corpuscular Volume 89.9 fL (83.0-100.0); Mean Platelet Volume 9.5 fL (9.4-12.4); Monocytes # 0.3 K/mcL (0.0-1.3); Monocytes % 3.5 %; Neutrophils # 6.1 K/mcL (1.6-8.9); Platelet Count 220 K/mcL (140-400); Red Blood Count 4.46 M/mcL (4.19-5.50); Red Cell Distribution Width 13.5 % (11.5-14.5); Segmented Neutrophils % 79.8 %
[2018-08-04 06:19] LABS: INR 1.5; Prothrombin Time 17.1 Seconds (9.4-12.1)
[2018-08-04 06:35] LABS: BUN/Creatinine Ratio 15 (6-26); Blood Urea Nitrogen 17 mg/dL (6-20); Calcium 9.2 mg/dL (8.6-10.3); Carbon Dioxide 28 mEq/L (23-29); Chloride 99 mEq/L (98-107); Glucose 161 mg/dL (70-105); Osmolality,Calculated 287 (280-300); Phosphorous 2.8 mg/dL (2.7-4.5); Potassium 3.9 mEq/L (3.5-5.1); Sodium 136 mEq/L (136-145); eGFR For Non-African Americans > 60 (> 60)
[2018-08-04] MEDS ORDERED: Aminoglycoside Consult 1 EACH MC ONE (08:57)
[2018-08-04] MEDS ORDERED: Azithromycin 500 MG in D5% in Water 250 ML IVPB SCH (09:00)
[2018-08-04] MEDS ORDERED: cefTRIAXone 2,000 MG in 0.9 % Sodium Chloride Mini Bag 100 ML IVPB SCH (09:00)
[2018-08-04] MEDS: *HR* Enoxaparin 150 MG/ML SYRINGE SQ SCH ×2 (09:06→16:25)
[2018-08-04] MEDS: Furosemide 40 MG TABLET PO SCH ×2 (09:06→16:25)
[2018-08-04] MEDS: Gabapentin 300 MG CAPSULE PO SCH ×3 (09:08→20:56)
[2018-08-04] MEDS: ALPRAZolam 1 MG TABLET PO PRN ×2 (09:16→20:56)
--- NOTE | 2018-08-04 13:20 | Internal Med Progress Note ---
Hospitalist Progress Note - Encounter Date of Encounter: 08/04/18 Time of Encounter: 09:00 - Subjective Interval History: Patient was seen and examined at bedside. Reports that his shortness of breath has improved somewhat however continues to wheeze. He denies any chest pain, or palpitations did have episodes of chills overnight however denies any fever. Tolerating by mouth diet, pain is controlled. - Exam Vitals: Temp Pulse Resp BP Pulse Ox 98.8 F 65 16 96/60 90 08/04/18 10:59 08/04/18 10:59 08/04/18 10:59 08/04/18 10:59 08/04/18 11:50 Exam: General: Patient is alert, oriented, no acute distress, obese, speaks in full sentences Head: atraumatic, normocephalic, Eye: normal appearance, PERRL, no scleral icterus, no conjunctival injection ENT: mucous membranes moist, normal external ear exam Neck: normal inspection, trachea midline, full ROM, no carotid bruits Chest: normal inspection, symmetric chest rise Respiratory: Distant breath sounds secondary to body habitus, wheezing in the anterior chest, occasional crackles the posterior lung field. Cardiovascular: Regular rate and rhythm. s1 and s2 No clicks, rubs, gallops, or murmors. Abdomen: Bowel sounds present normoactive x-4 quadrants. Abdomen is soft, nondistended. no Epigastric tenderness. No guarding or rebound. No organomegaly noted, obese musculoskeletal: Spontaneously moving all extremities. no edema, no calf tenderness Skin: warm, dry, intact. Neuro: Alert and oriented x3. No focal deficit Psych: Patient's affect is normal - Assessment and Plan (1) Sepsis Current Visit: Yes Status: Acute (2) CAP (community acquired pneumonia) Current Visit: Yes Status: Acute (3) Acute and chronic respiratory failure with hypoxia Current Visit: No Status: Acute (4) Acute exacerbation of chronic obstructive airways disease Current Visit: No Status: Acute (5) Subtherapeutic international normalized ratio (INR) Current Visit: No Status: Acute (6) Factor V Leiden Current Visit: No Status: Chronic (7) History of pulmonary embolism Current Visit: No Status: Chronic (8) Obesity (BMI 30-39.9) Current Visit: No Status: Chronic - Summary of Assessment and Plan Summary of Assessment and Plan: Sepsis secondary to HAP: has had history of multiple hospitalizations ( recently in june), leukocytosis and tachycardic on presentation, urine antigens- negative, MRSA nasal swab-negative, sputum cultures- pending, blood cultures, NGTD. Lactic acid 1.6, continue with oxygen via nasal cannula and keep saturations above 92%. Leukocytosis resolved, tachycardia resolved. Vancomycin and azithromycin were discontinued, will continue with cefepime Acute COPD exacerbation secondary to above: Antibiotics as above, cultures as above, Solu-Medrol 40 mg every 8 hours, continue with DuoNeb's and oxygen via nasal cannula- will consider transitioning him to oral steroids from tomorrow. Acute on chonic hypoxic respiratory failure: secondary to above, management as above, PE ruled out Factor V Leiden def, PE: continue coumadin, pharmacy to dose as INR is sub therapeutic, continue with therapeutic Lovenox for bridging. obesity: was counseled BMI 39.8 hypokalemia: replaced DVT prophylaxis: on Coumadin and therapeutic lovenox for bridging - Time Spent with Patient Total time spent is greater than 50% in coordination of care (as documented) at patient's floor/unit and/or counseling patient: 25 - 35 minutes Plan of Care Discussed with: patient Internal Medicine: Result - Labs CBC & Chem 7: 08/04/18 04:00 08/04/18 04:00 Labs: Short CBC 08/03/18 08/04/18 Range/Units 13:34 04:00 WBC 17.8 H D 7.7 D (4.3-11.1) K/mcL Hgb 14.9 13.3 D (12.9-16.9) g/dL Hct 44.1 40.1 (37.5-50.1) % Plt Count 262 220 (140-400) K/mcL Neutrophils # 12.7 H 6.1 (1.6-8.9) K/mcL BMP 08/03/18 08/04/18 13:33 04:00 Sodium 139 136 Potassium 3.2 L 3.9 Chloride 96 L 99 Carbon Dioxide 34 H 28 BUN 13 17 Creatinine 1.00 1.13 Glucose 119 H 161 H Calcium 10.4 H 9.2 Cardiac Enzymes 08/03/18 Range/Units 13:33 Troponin I < 0.03 (< 0.04) ng/mL Urine 08/03/18 Range/Units 15:58 Urine Color Yellow (Yellow) Urine Clarity Clear (Clear) Urine pH 8.0 (5.0-8.0) pH Units Ur Specific [place] 1.010 (1.010-1.025) Urine Protein Negative (Neg-Trace) mg/dL Urine Glucose (UA) Normal (Normal) mg/dL - ABG Interpretation ABG results: PT/INR, D-dimer PT 17.1 Seconds (9.4-12.1) H 08/04/18 04:00 - Impressions Impressions Chest CTA 08/03/18 13:15 IMPRESSION: 1. No evidence of acute pulmonary embolism or acute aortic disease. 2. More significant left lower lobe atypical nodular infiltrates which may represent atypical pneumonia. No evidence of pleural disease. D/ /03/2018 15:51:54 Renée Shi MD / [facility] Interpreting Provider: Renée Shi MD Consult Discharge Plan - Plan Referrals: Srinivas Pearce DO [Primary Care Provider] - (1) Sepsis Qualifiers: Sepsis type: sepsis due to unspecified organism Qualified Code(s): A41.9 - Sepsis, unspecified organism (2) CAP (community acquired pneumonia) Qualifiers: Laterality: left Lung location: lower lobe of lung Qualified Code(s): J18.1 - Lobar pneumonia, unspecified organism
[2018-08-04] MEDS: Lisinopril 20 MG TABLET PO SCH (16:25)
[2018-08-04] MEDS ORDERED: *HR* Warfarin 7.5 MG TABLET PO ONE (18:00)
[2018-08-04] MEDS: Levalbuterol Neb 1.25 MG/3 ML IH PRN (21:14)
[2018-08-04] MEDS: Ipratropium Neb 0.5 MG NEBULIZER IH PRN (21:14)
[2018-08-05] MEDS: Cefepime HCl 2,000 MG in 0.9 % Sodium Chloride Mini Bag 100 ML IVPB SCH ×3 (00:18→16:57)
[2018-08-05] MEDS: MethylPREDNISolone 40 MG/ML VIAL IVP SCH ×3 (00:19→16:58)
[2018-08-05] MEDS: *HR* OxyCODONE/APAP 5/325 TABLET PO PRN ×4 (00:19→19:34)
[2018-08-05] MEDS: tiZANidine 4 MG TABLET PO PRN (00:19)
[2018-08-05] MEDS: *HR* Enoxaparin 150 MG/ML SYRINGE SQ SCH ×2 (05:44→16:58)
[2018-08-05] MEDS: Levalbuterol Neb 1.25 MG/3 ML IH PRN ×3 (06:22→20:37)
[2018-08-05] MEDS: Ipratropium Neb 0.5 MG NEBULIZER IH PRN ×3 (06:22→20:37)
[2018-08-05] MEDS: Furosemide 40 MG TABLET PO SCH ×2 (08:02→16:57)
[2018-08-05] MEDS: Gabapentin 300 MG CAPSULE PO SCH ×3 (08:02→19:34)
[2018-08-05] MEDS: ALPRAZolam 1 MG TABLET PO PRN ×2 (08:08→19:37)
[2018-08-05 09:02] LABS: INR 2.4
--- NOTE | 2018-08-05 10:45 | Pulmonology Consult Note ---
Date of Encounter: 08/05/18 Time of Encounter: 10:44 Assessment and Plan (1) Acute and chronic respiratory failure with hypoxia Current Visit: No Status: Acute Stable oxygenation on low amount of nasal cannula continue supplemental oxygen saturation greater than 88% at all times Recommend getting the patient out of bed to chair Advised patient to sleep in a semi-recombinant posture because of concern of severe reflux esophagitis (2) Pneumonia Current Visit: Yes Status: Acute Patient has had recurrent pneumonia with significant gastric symptoms I suspect patient has been having continued reflux/aspiration of gastric contents leading to recurrent pneumonia. I discussed with the patient that he will need to have GI evaluation while inpatient and that likely will get him set up for combined EGD/bronchoscopy Recommend holding warfarin for this and can continue therapeutic Lovenox bridging Had an elevation in his white count on admission which has normalized I suspect he can be continued on current antimicrobial regimen pending results/workup will follow up on the cultures Qualifiers: Laterality: left Lung location: lower lobe of lung Qualified Code(s): J18.1 - Lobar pneumonia, unspecified organism (3) Acute exacerbation of chronic obstructive airways disease Current Visit: No Status: Acute Recommend IV methylprednisolone 40 mg twice a day New schedule duo nebs every 4 hours with every hour albuterol as needed Symbicort 160/4.5 (4) History of pulmonary embolism Current Visit: No Status: Chronic Continue anticoagulation per primary medicine service (5) Suspected sleep apnea Current Visit: No Status: Chronic We will need outpatient polysomnogram History of Present Illness Consult date: 08/05/18 Requesting physician: Naa Hicks Reason for consult: pneumonia Chief complaint: Difficulty in Breathing History of present illness: 58-year-old gentleman with past medical history of recurrent pulmonary embolus complicated by factor V Leiden deficiency. He is on long-term anticoagulation for this he has COPD and is a former smoker though currently in remission I know him very well from following up with him in the outpatient pulmonary clinic unfortunately he has had multiple admissions to the hospital this year including having undergone 3 CT angiograms of the chest within the last 2 months because of presentation for difficulty breathing and respiratory failure. Apparently he had presented to the emergency department on 07/29 for diffuse lower abdominal pain and epigastric pain and the pain from the epigastrium and radiated up into the chest prompting CT angiogram which was notable for improving patchy bilat eral tree-in-bud opacities without acute abnormality he was discharged unfortunately re-presented to the hospital's ED department complaining of shortness of breath and worsening chest pain along with nonproductive cough. He denied any hemoptysis. He was started on broad-spectrum antibiotics which have been D escalated to cefepime. Pulmonary was consulted for further evaluation of recurrent pneumonia. Details me that he has been having a lot of problems with his belly he feels like every time that he is or drinks anything the fluid in the drink will come back up and there is a burning in his esophagus he is also feeling choking and gagging at times. Past Med Surg Social Fam HX - Past Medical History Medical history: COPD, DVT, hypertension, pulmonary embolus, other Additional medical history: juan c filter Psychiatric history: anxiety - Past Surgical History Surgical History: non-contributory Additional surgical history: PLACEMENT OF THE IVC FILTER. VASECTOMY - Social History Smoking Status: Former smoker Smokeless Tobacco Status: Yes Alcohol use: none Drug use: none - Family History Father Adopted: No Living Status: Hx Family Cardiac Disorders: Yes ([place]) Hx Family Respiratory Disorders: Yes (copd, black lung) Hx Family Cancer: Yes Hx Family GI Disorders: No Mother Adopted: No Living Status: Still Living Hx Family Respiratory Disorders: Yes (copd) Hx Family Cancer: Yes (lung, brain) Hx Family GI Disorders: Yes (colon) Medications and Allergies Gabapentin [Neurontin] 300 mg PO TID 03/27/15 [History] DULoxetine [Cymbalta] 30 mg PO HS 02/27/17 [History] Atorvastatin [Lipitor] 10 mg PO HS 03/23/17 [History] Lisinopril [Zestril] 20 mg PO 1800 03/23/17 [History] Metoprolol [Lopressor] 12.5 mg PO BID tablet 04/04/17 [Rx] Tizanidine HCl [Zanaflex] 4 mg PO TID PRN #10 capsule 04/04/17 [Rx] Furosemide [Lasix] 40 mg PO BID #60 tablet 04/05/17 [Rx] ALPRAZolam [Xanax 1 MG Tablet] 1 mg PO BID PRN 04/17/17 [History] Albuterol Sulfate [Albuterol Inhaler] 2 puff IH Q4HR PRN 08/03/18 [History] Ipratropium Neb [Atrovent Neb] 0.5 mg IH Q6HR PRN 08/03/18 [History] Levalbuterol Neb [Xopenex Neb] 1.25 mg IH Q6H PRN 08/03/18 [History] Warfarin Sodium 5 mg PO SUTUWEFR 08/03/18 [History] Warfarin Sodium 7.5 mg PO MOTHSA 08/03/18 [History] Allergy/AdvReac Type Severity Reaction Status Date / Time No Known Allergies Allergy Verified 07/29/18 00:33 All Systems: The remainder of the systems were reviewed and are negative Physical Examination Vital Signs: Vital Signs, Last 4 Hours Temp Pulse Resp BP Pulse Ox 08/05/18 07:14 98.0 F 77 19 110/62 92 08/05/18 06:46 91 Eyes: nonicteric Effort: mildly labored Auscultation: bilateral: wheezes Cardiovascular: regular rate and rhythm Gastrointestinal: normoactive bowel sounds, tender (Epigastric tenderness), other (Protuberant obese abdomen) Integumentary: normal Extremities: no cyanosis, no edema, no clubbing Musculoskeletal: no deformities normal mental status, non-focal exam mood appropriate Results - Laboratory Findings CBC and BMP: 08/04/18 04:00 08/04/18 04:00 PT/INR, D-dimer PT 27.0 Seconds (9.4-12.1) H D 08/05/18 08:29 Abnormal lab findings: Abnormal lab results WBC 17.8 K/mcL (4.3-11.1) H D 08/03/18 13:34 MPV 9.2 fL (9.4-12.4) L 08/03/18 13:34 12.7 K/mcL (1.6-8.9) H 08/03/18 13:34 2.2 K/mcL (0.0-1.3) H 08/03/18 13:34 PT 27.0 Seconds (9.4-12.1) H D 08/05/18 08:29 Potassium 3.2 mEq/L (3.5-5.1) L 08/03/18 13:33 Chloride 96 mEq/L (98-107) L 08/03/18 13:33 Carbon Dioxide 34 mEq/L (23-29) H 08/03/18 13:33 Glucose 161 mg/dL (70-105) H 08/04/18 04:00 Calcium 10.4 mg/dL (8.6-10.3) H 08/03/18 13:33 - Microbiology Findings Microbiology Findings: Microbiology, Last 48 Hours 08/03/18 16:45 Sputum Culture - Final Sputum 08/03/18 19:23 Legionella Antigen - Final Urine,Clean Catch Streptococcus pneumoniae Antigen (M - Final 08/03/18 16:32 Blood Culture - Preliminary Peripheral Venipuncture Culture is incubating and being continuously monitored for growth. Final report to follow. 08/03/18 16:26 Blood Culture - Preliminary Peripheral Venipuncture Culture is incubating and being continuously monitored for growth. Final report to follow. - Diagnostic Findings Chest x-ray: report reviewed, image reviewed - Clinical Findings Intake & Output: Intake & Output 08/04/18 08/05/18 08/05/18 23:59 07:59 15:59 Intake Total 340 / 2770 580 / 800 220 / 800 Output Total 520 / 1720 650 / 650 Balance -180 / 1050 -70 / 150 220 / 150 Weight 128.6 kg Consult Discharge Plan - Plan Referrals: Srinivas Pearce DO [Primary Care Provider] -
[2018-08-05] MEDS: Budesonide/Formoterol 80/4.5 MDI IH SCH ×2 (11:44→20:37)
--- NOTE | 2018-08-05 12:18 | Internal Med Progress Note ---
Hospitalist Progress Note - Encounter Date of Encounter: 08/05/18 Time of Encounter: 09:00 - Subjective Interval History: Patient was seen and examined at bedside. Reports that he did develop shortness of breath and was desaturating overnight so he was started on his home dose oxygen via nasal cannula with improvement of his saturations. 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 He denies fever or chills overnight however continues to have wheezing. He denies chest pain and is tolerating diet. - Exam Vitals: Temp Pulse Resp BP Pulse Ox 97.6 F 73 16 122/69 97 08/05/18 11:19 08/05/18 11:19 08/05/18 11:44 08/05/18 11:08/05/18 11:44 Exam: General: Patient is alert, oriented, no acute distress, obese, speaks in full sentences Head: atraumatic, normocephalic, Eye: normal appearance, PERRL, no scleral icterus, no conjunctival injection ENT: mucous membranes moist, normal external ear exam Neck: normal inspection, trachea midline, full ROM, no carotid bruits Chest: normal inspection, symmetric chest rise Respiratory: Distant breath sounds secondary to body habitus, wheezing in the anterior chest, occasional crackles the posterior lung field. Cardiovascular: Regular rate and rhythm. s1 and s2 No clicks, rubs, gallops, or murmors. Abdomen: Bowel sounds present normoactive x-4 quadrants. Abdomen is soft, nondistended. no Epigastric tenderness. No guarding or rebound. No organomegaly noted, obese musculoskeletal: Spontaneously moving all extremities. no edema, no calf tenderness Skin: warm, dry, intact. Neuro: Alert and oriented x3. No focal deficit Psych: Patient's affect is normal - Assessment and Plan (1) Sepsis Current Visit: Yes Status: Acute (2) Acute and chronic respiratory failure with hypoxia Current Visit: No Status: Acute (3) Acute exacerbation of chronic obstructive airways disease Current Visit: No Status: Acute (4) Subtherapeutic international normalized ratio (INR) Current Visit: No Status: Acute (5) Factor V Leiden Current Visit: No Status: Chronic (6) History of pulmonary embolism Current Visit: No Status: Chronic (7) Obesity (BMI 30-39.9) Current Visit: No Status: Chronic (8) HAP (hospital-acquired pneumonia) Current Visit: Yes Status: Acute - Summary of Assessment and Plan Summary of Assessment and Plan: Sepsis secondary to HAP: has had history of multiple hospitalizations ( recently in june), leukocytosis and tachycardic on presentation, urine antigens- negative, MRSA nasal swab-negative, sputum cultures- pending, blood cultures, NGTD. Lactic acid 1.6, continue with oxygen via nasal cannula and keep s aturations above 92%. Leukocytosis resolved, tachycardia resolved. Vancomycin and azithromycin were discontinued, will continue with cefepime. pulm recs appreciated for EGD/bronchoscopy and MBS in AM to rule out aspiration. Acute COPD exacerbation secondary to above: Antibiotics as above, cultures as above, Solu-Medrol 40 mg every 8 hours, continue with DuoNeb's and oxygen via nasal cannula, symbicort, oxygen via nasal cannula Acute on chonic hypoxic respiratory failure: secondary to above, management as above, PE ruled out Factor V Leiden def, PE: continue with therapeutic Lovenox for bridging- hold lovenox AM dose on 08/06- coumadin on hold for bronch/EGD in AM obesity: was counseled BMI 39.8/ suspected DARIO needs OP sleep study. hypokalemia: replaced DVT prophylaxis: on Coumadin and therapeutic lovenox for bridging - Time Spent with Patient Total time spent is greater than 50% in coordination of care (as documented) at patient's floor/unit and/or counseling patient: 25 - 35 minutes Plan of Care Discussed with: patient Internal Medicine: Result - Labs CBC & Chem 7: 08/04/18 04:00 08/04/18 04:00 - ABG Interpretation ABG results: PT/INR, D-dimer PT 27.0 Seconds (9.4-12.1) H D 08/05/18 08:29 Consult Discharge Plan - Plan Referrals: Srinivas Pearce DO [Primary Care Provider] - __ (1) Sepsis Qualifiers: Sepsis type: sepsis due to unspecified organism Qualified Code(s): A41.9 - Sepsis, unspecified organism
[2018-08-05] MEDS: Lisinopril 20 MG TABLET PO SCH (16:57)
[2018-08-06] MEDS: Cefepime HCl 2,000 MG in 0.9 % Sodium Chloride Mini Bag 100 ML IVPB SCH ×3 (00:07→16:21)
[2018-08-06] MEDS: *HR* OxyCODONE/APAP 5/325 TABLET PO PRN ×5 (00:08→20:51)
[2018-08-06] MEDS: MethylPREDNISolone 40 MG/ML VIAL IVP SCH ×3 (00:08→17:50)
[2018-08-06] MEDS: *HR* Enoxaparin 150 MG/ML SYRINGE SQ SCH (01:11)
[2018-08-06 04:59] LABS: INR 2.6; Prothrombin Time 29.4 Seconds (9.4-12.1)
[2018-08-06] MEDS: Furosemide 40 MG TABLET PO SCH ×2 (07:45→16:20)
[2018-08-06] MEDS: Gabapentin 300 MG CAPSULE PO SCH ×3 (07:46→20:52)
[2018-08-06] MEDS: ALPRAZolam 1 MG TABLET PO PRN ×2 (07:53→20:51)
--- NOTE | 2018-08-06 09:45 | Electrocardiograph Report ---
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
[2018-08-06] MEDS: Budesonide/Formoterol 160/4.5 1 PUFF INH IH SCH ×2 (09:58→20:25)
[2018-08-06] MEDS: Ipratropium Neb 0.5 MG NEBULIZER IH PRN (09:59)
[2018-08-06] MEDS: Levalbuterol Neb 1.25 MG/3 ML IH PRN (09:59)
--- NOTE | 2018-08-06 12:16 | Pulmonology Progress Note ---
Date of Encounter: 08/06/18 Time of Encounter: 11:45 Assessment and Plan (1) Acute exacerbation of chronic obstructive airways disease Current Visit: No Status: Acute Patient presented with exacerbation of COPD to continue bronchodilators and steroids. (2) History of pulmonary embolism Current Visit: No Status: Chronic If the INR is subtherapeutic will need to bridge with unfractionated heparin.. The unfractionated heparin before Before the procedure. (3) Pneumonia Current Visit: Yes Status: Acute Patient has recurrent aspiration episodes will do a quick bronchoscopy with airway examination. To continue with broad-spectrum antibiotics. To keep him nothing by mouth after midnight patient will need EGD and bronchoscopy under MAC tomorrow. Qualifiers: Pneumonia type: aspiration pneumonia Aspiration pneumonia type: due to gastric secretions Laterality: bilateral Lung location: lower lobe of lung Qualified Code(s): J69.0 - Pneumonitis due to inhalation of food and vomit Subjective Principal diagnosis: COPD exacerbation with recurrent pneumonia Interval history: Patient is here for recurrent COPD exacerbation with recurrent pneumonia with possible recurrent aspiration events patient says he is doing a lot better has some cough and sputum production denies any chest pain chest tightness denies any palpitation or syncope patient might get EGD tomorrow we will do a diagnostic bronchoscopy. Objective PUL Vital signs: Last Vital Signs Temp 98.2 F 08/06/18 11:16 Pulse 84 08/06/18 11:16 Resp 18 08/06/18 11:16 BP 120/69 08/06/18 11:16 Pulse Ox 93 08/06/18 11:16 General appearance: no acute distress Effort: normal Auscultation: bilateral: diminished breath sounds (Basilar diminished breath sounds), wheezes (Bilateral scattered wheezes) Cardiovascular: regular rate and rhythm Gastrointestinal: normoactive bowel sounds Integumentary: normal Extremities: no cyanosis Musculoskeletal: no deformities normal mental status, non-focal exam Results - Laboratory Findings CBC and BMP: 08/04/18 04:00 08/04/18 04:00 PT/INR, D-dimer PT 29.4 Seconds (9.4-12.1) H 08/06/18 04:23 Abnormal lab findings: Abnormal lab results WBC 17.8 K/mcL (4.3-11.1) H D 08/03/18 13:34 MPV 9.2 fL (9.4-12.4) L 08/03/18 13:34 12.7 K/mcL (1.6-8.9) H 08/03/18 13:34 2.2 K/mcL (0.0-1.3) H 08/03/18 13:34 PT 29.4 Seconds (9.4-12.1) H 08/06/18 04:23 Potassium 3.2 mEq/L (3.5-5.1) L 08/03/18 13:33 Chloride 96 mEq/L (98-107) L 08/03/18 13:33 Carbon Dioxide 34 mEq/L (23-29) H 08/03/18 13:33 Glucose 161 mg/dL (70-105) H 08/04/18 04:00 Calcium 10.4 mg/dL (8.6-10.3) H 08/03/18 13:33 - Clinical Findings Intake & Output: Intake & Output 08/05/18 08/06/18 08/06/18 23:59 07:59 15:59 Intake Total 820 / 1740 100 / 200 100 / 200 Output Total 0 / 0 Balance 820 / 490 100 / 200 100 / 200 Weight 130.8 kg Consult Discharge Plan - Plan Referrals: Srinivas Pearce DO [Primary Care Provider] -
--- NOTE | 2018-08-06 12:27 | Gastroenterology Consult Note ---
<Bo Jones - Last Filed: 08/06/18 12:23> Date of Encounter: 08/06/18 Time of Encounter: 10:10 - Assessment and plan (1) Dysphagia Current Visit: Yes Status: Acute Assessment and plan: Plan for EGD with possible dilation to r/o structural causes such as stricture, tumor, etc vs esophageal motility disorder. INR 2.6, will need INR < 1.5. Qualifiers: Dysphagia type: unspecified Qualified Code(s): R13.10 - Dysphagia, unspecified (2) Abdominal pain Current Visit: No Status: Acute Assessment and plan: Start omeprazole daily. Plan for EGD once INR corrected. Patient educated regarding lifestyle modifications including: (1) avoidance of foods that may precipitate reflux (eg, coffee, alcohol, chocolate, fatty foods). (2) avoidance of acidic foods that may precipitate heartburn (eg, citrus, carbonated drinks, spicy foods). (3) adoption of behaviors that may reduce esophageal acid exposure (see weight loss, smoking cessation, raising the head of the bed, and avoiding recumbency for 2-3 hours after meals). Qualifiers: Abdominal location: lower abdomen, unspecified Qualified Code(s): R10.30 - Lower abdominal pain, unspecified (3) Supratherapeutic INR Current Visit: No Status: Acute Assessment and plan: INR 2.6, will need INR < 1.5. Consider Vitamin K and/or FFP. - Time Spent With Patient Total time spent is greater than 50% in coordination of care (as documented) at patient's floor/unit and/or counseling patient: GI History of Present Illness - Data of Consult Patient: new to practice Consult date: 08/06/18 Requesting Physician: Naa Hicks MD - Consult Narrative Reason for consult: EGD History of present illness: Mr. Oliva is a 58 year old male with PMHx of COPD, DVT, HTN, PE, factor V Leiden who presentes with worsening shortness of breath for 1 week. He was tachypneic and tachycardic, CTA chest negative for PE. We were consulted for possible EGD. He complains of epigastric pain that radiates to his chest. He also reports difficulty swallowing solids and liquids for 1-2 years, but states symptoms have worsened over the past 6 months. Patient presented to the ED 07/29 with complaints of epigastric pain, CTA of chest, abd, and pelvis was negative for PE, decreased multifocal tree-in-bud patchy opacites. Procedures: None NSAIDs: None Anticoagulation: Coumadin Past Med Surg Social Fam HX - Past Medical History Medical history: COPD, DVT, hypertension, pulmonary embolus, other Additional medical history: juan c filter Psychiatric history: anxiety - Past Surgical History Surgical History: non-contributory Additional surgical history: PLACEMENT OF THE IVC FILTER. VASECTOMY - Social History Smoking Status: Former smoker Smokeless Tobacco Status: Yes Alcohol use: none Drug use: none - Family History Father Adopted: No Living Status: Hx Family Cardiac Disorders: Yes ([place]) Hx Family Respiratory Disorders: Yes (copd, black lung) Hx Family Cancer: Yes Hx Family GI Disorders: No Mother Adopted: No Living Status: Still Living Hx Family Respiratory Disorders: Yes (copd) Hx Family Cancer: Yes (lung, brain) Hx Family GI Disorders: Yes (colon) - Gastrointestinal Gastrointestinal: Present: as per HPI - Constitutional Constitutional: as per HPI - EENT Eyes: as per HPI Ears: Present: as per HPI Nose, mouth and throat: Present: as per HPI - Cardiovascular Cardiovascular ROS: Present: as per HPI - Respiratory Respiratory IM: Present: as per HPI - Genitourinary Genitourinary: Absent: change in color, Urinary frequency - Neurological ROS Neurological GI: Present: as per HPI - Hematologic/Lymphatic Hematologic/Lymphatic pediatric: Present: as per HPI - Musculoskeletal Musculoskeletal ROS GI: Present: as per HPI - Integumentary Integumentary GI: Present: as per HPI - Psychiatric ROS Psychiatric GI: Present: as per HPI - Endocrine Endocrine IM: Present: as per HPI - Constitutional Vitals: Temp Pulse Resp BP Pulse Ox 98.2 F 84 18 120/69 93 08/06/18 11:16 08/06/18 11:16 08/06/18 11:16 08/06/18 11:16 08/06/18 11:16 General appearance: Present: cooperative, A&O X 3, no acute distress, answers questions appropriately - Head Head exam: Present: atraumatic, normocephalic - Eye Eye exam: Present: normal appearance, sclera anicteric - ENT ENT exam: Present: mucous membranes moist - Neck Neck exam general surgery: Present: normal inspection, trachea midline - Respiratory Respiratory exam: Present: decreased breath sounds, rhonchi, wheezes - Cardiovascular Cardiovascular exam: Present: RRR, +S1, +S2 - GI/Abdominal GI/Abdominal exam: Present: soft, no peritoneal signs. Absent: distended, firm, guarding, tenderness Additional comments: obese - Rectal Rectal exam: Present: deferred - Extremities Exam Extremities exam: Present: warm - Neurological Exam Neurological exam: Present: no focal deficits - Psychiatric Psychiatric exam: Present: normal affect, normal mood - Skin Skin exam: Present: dry, intact, normal color, warm Results - Labs CBC & Chem 7: 08/04/18 04:00 08/04/18 04:00 Labs: Entire Visit 08/06/18 04:23 PT 29.4 H - ABG ABG results: PT/INR, D-dimer PT 29.4 Seconds (9.4-12.1) H 08/06/18 04:23 - Impressions Impressions Chest X-Ray 08/05/18 10:31 IMPRESSION: Stable portable study. D/ / Anna Goodman Cha, MD / Anna Goodman Cha, MD Interpreting Provider: Anna Goodman Cha, MD Consult Discharge Plan - Plan Referrals: Srinivas Pearce DO [Primary Care Provider] - <José [email or web address] - Last Filed: 08/06/18 17:10> Date of Encounter: 08/06/18 Time of Encounter: 14:00 - Time Spent With Patient Total time spent is greater than 50% in coordination of care (as documented) at patient's floor/unit and/or counseling patient: GI History of Present Illness - Data of Consult Requesting Physician: Naa Hicks MD - Consult Narrative History of present illness: Mr. Oliva is a 58 year old male - Constitutional Vitals: Temp Pulse Resp BP Pulse Ox 97.7 F 78 19 125/69 94 08/06/18 16:15 08/06/18 16:15 08/06/18 16:15 08/06/18 16:15 08/06/18 16:15 Results - Labs CBC & Chem 7: 08/04/18 04:00 08/04/18 04:00 - ABG ABG results: PT/INR, D-dimer PT 29.4 Seconds (9.4-12.1) H 08/06/18 04:23 - Impressions Impressions Videofluoroscopic Swallow 08/06/18 11:20 IMPRESSION: Transient laryngeal penetration with large bolus of thin liquid. No convincing evidence of aspiration. Please see separate speech pathology report for full discussion of findings and recommendations. D/ / 08/06/2018 15:07:03 Russell Green MD / josé luisay Interpreting Provider: Russell Green MD - Attending Attestation I have personally performed a face to face evaluation on this patient. I have reviewed and agree with the care plan. History and Exam by me shows: Patient seen. Complaining of pain epigastric area was also with food hanging in that region. Examination: Mild epigastric tenderness. Assessment: Patient with epigastric pain and dysphagia. #2 recurrent PE currently on Coumadin with high INR. Recommendation: Discussed with Dr. La patient will have a combined EGD/bronchoscopy done tomorrow. If found to have a stricture and needed dilation then he will need to follow up with me as an outpatient and he will need a bridging done for his high INR
--- NOTE | 2018-08-06 13:39 | Internal Med Progress Note ---
Hospitalist Progress Note - Encounter Date of Encounter: 08/06/18 Time of Encounter: 13:35 - Subjective Interval History: Patient was seen and examined at bedside earlier this morning. All questions answered, no overnight events. Discussed that he will most likely have EGD and bronchoscopy in the morning and is in agreement. He reports that his breathing is improved however he continues to wheeze at times, reports that his cough is improving. He denies fever, chills, nausea, vomiting or diarrhea. Has had no hemoptysis - Exam Vitals: Temp Pulse Resp BP Pulse Ox 98.2 F 84 18 120/69 93 08/06/18 11:16 08/06/18 11:16 08/06/18 11:16 08/06/18 11:16 08/06/18 11:16 Exam: General: Patient is alert, oriented, no acute distress, obese, speaks in full se ntences Head: atraumatic, normocephalic, Eye: normal appearance, PERRL, no scleral icterus, no conjunctival injection ENT: mucous membranes moist, normal external ear exam Neck: normal inspection, trachea midline, full ROM, no carotid bruits Chest: normal inspection, symmetric chest rise Respiratory: Distant breath sounds secondary to body habitus, wheezing in the anterior chest- improved, occasional crackles the posterior lung field. Cardiovascular: Regular rate and rhythm. s1 and s2 No clicks, rubs, gallops, or murmors. Abdomen: Bowel sounds present normoactive x-4 quadrants. Abdomen is soft, nondistended. no Epigastric tenderness. No guarding or rebound. No organomegaly noted, obese musculoskeletal: Spontaneously moving all extremities. no edema, no calf tenderness Skin: warm, dry, intact. Neuro: Alert and oriented x3. No focal deficit Psych: Patient's affect is normal - Assessment and Plan (1) Sepsis Current Visit: Yes Status: Acute (2) Acute and chronic respiratory failure with hypoxia Current Visit: No Status: Acute (3) Acute exacerbation of chronic obstructive airways disease Current Visit: No Status: Acute (4) Subtherapeutic international normalized ratio (INR) Current Visit: No Status: Acute (5) Factor V Leiden Current Visit: No Status: Chronic (6) History of pulmonary embolism Current Visit: No Status: Chronic (7) Obesity (BMI 30-39.9) Current Visit: No Status: Chronic (8) HAP (hospital-acquired pneumonia) Current Visit: Yes Status: Acute - Summary of Assessment and Plan Summary of Assessment and Plan: Sepsis secondary to HAP: has had history of multiple hospitalizations ( recently in june), leukocytosis and tachycardic on presentation, urine antigens- negative, MRSA nasal swab-negative, sputum cultures- pending, blood cultures, NGTD. Lactic acid 1.6, continue with oxygen via nasal cannula and keep saturations above 92%. Leukocytosis resolved, tachycardia resolved. Vancomycin and azithromycin were discontinued, will continue with cefepime. pulm recs appreciated for EGD/bronchoscopy and MBS in AM 08/07/18 Acute COPD exacerbation secondary to above: Antibiotics as above, cultures as above, Solu-Medrol 40 mg tapered to twice daily, continue with DuoNeb's and oxygen via nasal cannula, symbicort, oxygen via nasal cannula Acute on chonic hypoxic respiratory failure: secondary to above, management as above, PE ruled out Factor V Leiden def, PE: Was bridged with Lovenox, INR is therapeutic for the past 48 hours, however coumadin on hold for bronch/EGD in AM obesity: was counseled BMI 39.8/ suspected DARIO needs OP sleep study. hypokalemia: replaced and resolved DVT prophylaxis: Therapeutic INR on Coumadin, SCDs - Time Spent with Patient Total time spent is greater than 50% in coordination of care (as documented) at patient's floor/unit and/or counseling patient: Internal Medicine: Result - Labs CBC & Chem 7: 08/04/18 04:00 08/04/18 04:00 - ABG Interpretation ABG results: PT/INR, D-dimer PT 29.4 Seconds (9.4-12.1) H 08/06/18 04:23 Consult Discharge Plan - Plan Referrals: Srinivas Pearce DO [Primary Care Provider] - (1) Sepsis Qualifiers: Sepsis type: sepsis due to unspecified organism Qualified Code(s): A41.9 - Sepsis, unspecified organism
[2018-08-06] MEDS ORDERED: E-Z-HD (BARIUM SULF) SUSPENSION PO ONE (14:21)
[2018-08-06] MEDS ORDERED: E-Z-PAQUE (BARIUM SULF) SUSP 1 BOTTLE PO ONE (14:21)
[2018-08-06] MEDS: Lisinopril 20 MG TABLET PO SCH (17:50)
[2018-08-07] MEDS: tiZANidine 4 MG TABLET PO PRN ×2 (00:35→20:38)
[2018-08-07] MEDS: Cefepime HCl 2,000 MG in 0.9 % Sodium Chloride Mini Bag 100 ML IVPB SCH ×4 (00:35→23:11)
[2018-08-07] MEDS: *HR* OxyCODONE/APAP 5/325 TABLET PO PRN ×5 (00:35→18:28)
[2018-08-07] MEDS: MethylPREDNISolone 40 MG/ML VIAL IVP SCH ×2 (05:47→19:03)
[2018-08-07] MEDS: ALPRAZolam 1 MG TABLET PO PRN ×2 (05:50→20:38)
[2018-08-07 06:11] LABS: INR 1.8
[2018-08-07 06:19] LABS: BUN/Creatinine Ratio 22 (6-26); Blood Urea Nitrogen 20 mg/dL (6-20); Calcium 9.3 mg/dL (8.6-10.3); Carbon Dioxide 28 mEq/L (23-29); Chloride 102 mEq/L (98-107); Glucose 181 mg/dL (70-105); Osmolality,Calculated 289 (280-300); Potassium 4.5 mEq/L (3.5-5.1); Sodium 136 mEq/L (136-145); eGFR For Non-African Americans > 60 (> 60)
[2018-08-07] MEDS ORDERED: *HR* Heparin 5,000 UNIT/ML VIAL IVP PRN ×2 (07:33)
[2018-08-07 08:06] LABS: Hematocrit 38.2 % (37.5-50.1); Hemoglobin 12.5 g/dL (12.9-16.9); Mean Corpuscular HGB Conc 32.7 g/dL (31.6-35.5); Mean Corpuscular Hemoglobin 30.2 pg (28.0-33.3); Mean Corpuscular Volume 92.3 fL (83.0-100.0); Mean Platelet Volume 9.4 fL (9.4-12.4); Platelet Count 218 K/mcL (140-400); Red Blood Count 4.14 M/mcL (4.19-5.50); Red Cell Distribution Width 13.9 % (11.5-14.5)
[2018-08-07 08:13] LABS: Heparin anti-factor XA UFH 0.14 IU/mL (0.30-0.70)
[2018-08-07 08:14] LABS: INR 1.7
[2018-08-07] MEDS: Furosemide 40 MG TABLET PO SCH ×2 (08:33→19:03)
[2018-08-07] MEDS: Gabapentin 300 MG CAPSULE PO SCH ×3 (08:33→20:29)
[2018-08-07] MEDS: Heparin 25,000 UNIT/250 ML D5W 25,000 UNIT/250 ML IV.SOLN IVC SCH (08:34)
[2018-08-07] MEDS: Levalbuterol Neb 1.25 MG/3 ML IH PRN ×2 (10:01→21:53)
[2018-08-07] MEDS: Ipratropium Neb 0.5 MG NEBULIZER IH PRN ×2 (10:01→21:53)
[2018-08-07] MEDS: Budesonide/Formoterol 160/4.5 1 PUFF INH IH SCH ×2 (10:02→21:53)
--- NOTE | 2018-08-07 14:03 | Internal Med Progress Note ---
Hospitalist Progress Note - Encounter Date of Encounter: 08/07/18 Time of Encounter: 08:00 - Subjective Interval History: Patient was seen and examined at bedside. Currently nothing by mouth for EGD and bronchoscopy. All questions answered, pain is controlled. Denies any overnight events. He is glad that he is having further workup for her shortness of breath as he has had multiple scans and has been on multiple antibiotics without any resolution of his symptoms. Currently denies fever, chills, nausea, vomiting or diarrhea. - Exam Vitals: Temp Pulse Resp BP Pulse Ox 98.0 F 69 18 115/68 93 08/07/18 11:19 08/07/18 11:19 08/07/18 11:19 08/07/18 11:08/07/18 11: Exam: General: Patient is alert, oriented, no acute distress, obese, speaks in full sentences Head: atraumatic, normocephalic, Eye: normal appearance, PERRL, no scleral icterus, no conjunctival injection ENT: mucous membranes moist, normal external ear exam Neck: normal inspection, trachea midline, full ROM, no carotid bruits Chest: normal inspection, symmetric chest rise Respiratory: Distant breath sounds secondary to body habitus, wheezing in the anterior chest- improved, occasional crackles the posterior lung field. Cardiovascular: Regular rate and rhythm. s1 and s2 No clicks, rubs, gallops, or murmors. Abdomen: Bowel sounds present normoactive x-4 quadrants. Abdomen is soft, nondistended. no Epigastric tenderness. No guarding or rebound. No organomegaly noted, obese musculoskeletal: Spontaneously moving all extremities. no edema, no calf tenderness Skin: warm, dry, intact. Neuro: Alert and oriented x3. No focal deficit Psych: Patient's affect is normal - Assessment and Plan (1) Sepsis Current Visit: Yes Status: Acute (2) Acute and chronic respiratory failure with hypoxia Current Visit: No Status: Acute (3) Acute exacerbation of chronic obstructive airways disease Current Visit: No Status: Acute (4) Subtherapeutic international normalized ratio (INR) Current Visit: No Status: Acute (5) Factor V Leiden Current Visit: No Status: Chronic (6) History of pulmonary embolism Current Visit: No Status: Chronic (7) Obesity (BMI 30-39.9) Current Visit: No Status: Chronic (8) HAP (hospital-acquired pneumonia) Current Visit: Yes Status: Acute - Summary of Assessment and Plan Summary of Assessment and Plan: Sepsis secondary to HAP: has had history of multiple hospitalizations ( recently in june), leukocytosis and tachycardic on presentation, urine antigens- negative, MRSA nasal swab-negative, sputum cultures- pending, blood cultures, NGTD. Lactic acid 1.6, continue with oxygen via nasal cannula and keep saturations above 92%. Leukocytosis resolved, tachycardia resolved. Vancomycin and azithromycin were discontinued, will continue with cefepime. pulm recs appreciated for EGD/bronchoscopy on 08/07 procalcitonin 0.13/0.07- consider stopping/ deescalating ABx. Pulm on board will follow Acute COPD exacerbation secondary to above: Antibiotics as above, cultures as above, Solu-Medrol 40 mg tapered to twice daily, continue with DuoNeb's and oxygen via nasal cannula, symbicort, oxygen via nasal cannula Acute on chonic hypoxic respiratory failure: secondary to above, management as above, PE ruled out Factor V Leiden def, PE: started on heparin drip as he has EGD, bronchoscopy planned for today- coumadin on hold - consider restarting coumadin if ok with consultants. obesity: was counseled BMI 39.8/ suspected DARIO needs OP sleep study. hypokalemia: replaced and resolved DVT prophylaxis: on heparin drip- Coumadin on hold consider restarting f no CI from consultants - Time Spent with Patient Total time spent is greater than 50% in coordination of care (as documented) at patient's floor/unit and/or counseling patient: Internal Medicine: Result - Labs CBC & Chem 7: 08/07/18 07:51 08/07/18 05:42 Labs: Short CBC 08/07/18 Range/Units 07:51 WBC 11.3 H (4.3-11.1) K/mcL Hgb 12.5 L (12.9-16.9) g/dL Hct 38.2 (37.5-50.1) % Plt Count 218 (140-400) K/mcL BMP 08/07/18 05:42 Sodium 136 Potassium 4.5 Chloride 102 Carbon Dioxide 28 BUN 20 Creatinine 0.91 Glucose 181 H Calcium 9.3 - ABG Interpretation ABG results: PT/INR, D-dimer PT 19.0 Seconds (9.4-12.1) H 08/07/18 07:51 - Impressions Impressions Videofluoroscopic Swallow 08/06/18 11:20 IMPRESSION: 1. Transient laryngeal penetration with large bolus of thin liquid. No convincing evidence of aspiration. 2. Please see separate speech pathology report for full discussion of findings and recommendations. D/ / 08/06/2018 15:07:03 Russell Green MD / gian Interpreting Provider: Russell Green MD Consult Discharge Plan - Plan Referrals: Srinivas Pearce, [Primary Care Provider] - (1) Sepsis Qualifiers: Sepsis type: sepsis due to unspecified organism Qualified Code(s): A41.9 - Sepsis, unspecified organism
--- NOTE | 2018-08-07 14:16 | Pulmonology Progress Note ---
Date of Encounter: 08/07/18 Time of Encounter: 13:00 Assessment and Plan (1) Acute exacerbation of chronic obstructive airways disease Current Visit: No Status: Acute Patient presented with exacerbation of COPD to continue bronchodilators and steroids. (2) History of pulmonary embolism Current Visit: No Status: Chronic If the INR is subtherapeutic will need to bridge with unfractionated heparin.. The unfractionated heparin before Before the procedure.. 08/07 heparin stopped before the procedure will restart after 4 hours of procedure. (3) Pneumonia Current Visit: Yes Status: Acute Patient has recurrent aspiration episodes will do a quick bronchoscopy with airway examination. To continue with broad-spectrum antibiotics. To keep him nothing by mouth after midnight patient will need EGD and bronchoscopy under MAC tomorrow. 08/07 will do a bronchoscopy with airway clearance with BAL for follow-up c ultures Qualifiers: Pneumonia type: aspiration pneumonia Aspiration pneumonia type: due to gastric secretions Laterality: bilateral Lung location: lower lobe of lung Qualified Code(s): J69.0 - Pneumonitis due to inhalation of food and vomit Subjective Principal diagnosis: COPD exacerbation with recurrent pneumonia Interval history: Patient is here for recurrent COPD exacerbation with recurrent pneumonia with possible recurrent aspiration events patient says he is doing a lot better has some cough and sputum production denies any chest pain chest tightness denies any palpitation or syncope patient might get EGD tomorrow we will do a diagnostic bronchoscopy. 08/07 patient is scheduled for EGD and bronchoscopy today patient symptoms are stable denies any acute events overnight. Objective PUL Vital signs: Last Vital Signs Temp 98.0 F 08/07/18 11:19 Pulse 69 08/07/18 11:19 Resp 18 08/07/18 11:19 BP 115/68 08/07/18 11:19 Pulse Ox 93 08/07/18 11:19 General appearance: no acute distress Effort: normal Auscultation: bilateral: rales (Very minimal scattered rales) Cardiovascular: regular rate and rhythm Gastrointestinal: normoactive bowel sounds Extremities: no edema normal mental status, non-focal exam Results - Laboratory Findings CBC and BMP: 08/07/18 07:51 08/07/18 05:42 PT/INR, D-dimer PT 19.0 Seconds (9.4-12.1) H 08/07/18 07:51 Abnormal lab findings: Abnormal lab results WBC 11.3 K/mcL (4.3-11.1) H 08/07/18 07:51 RBC 4.14 M/mcL (4.19-5.50) L 08/07/18 07:51 Hgb 12.5 g/dL (12.9-16.9) L 08/07/18 07:51 MPV 9.2 fL (9.4-12.4) L 08/03/18 13:34 12.7 K/mcL (1.6-8.9) H 08/03/18 13:34 2.2 K/mcL (0.0-1.3) H 08/03/18 13:34 PT 19.0 Seconds (9.4-12.1) H 08/07/18 07:51 Heparin Anti-Xa, Unfract 0.14 IU/mL (0.30-0.70) L 08/07/18 07:51 Potassium 3.2 mEq/L (3.5-5.1) L 08/03/18 13:33 Chloride 96 mEq/L (98-107) L 08/03/18 13:33 Carbon Dioxide 34 mEq/L (23-29) H 08/03/18 13:33 Glucose 181 mg/dL (70-105) H 08/07/18 05:42 Calcium 10.4 mg/dL (8.6-10.3) H 08/03/18 13:33 - Clinical Findings Intake & Output: Intake & Output 08/06/18 08/07/18 08/07/18 23:59 07:59 15:59 Intake Total 820 / 1380 100 / 300 200 / 300 Output Total 500 / 500 1000 / 1000 Balance 320 / 880 100 / -700 -800 / -700 Consult Discharge Plan - Plan Referrals: Srinivas Pearce DO [Primary Care Provider] -
[2018-08-07 15:42] LABS: Heparin anti-factor XA UFH 0.48 IU/mL (0.30-0.70)
[2018-08-07 15:51] LABS: INR 1.5; Prothrombin Time 17.3 Seconds (9.4-12.1)
[2018-08-07 15:54] LABS: Activated Partial Thrombo Time 42.1 Seconds (26.0-36.0)
--- NOTE | 2018-08-07 16:48 | Anesthesia Evaluation PreOp ---
Date of Encounter: 08/07/18 Time of Encounter: 17:00 - Past History Planned Operation: EGD Bronchoscopy Cardiac History: HTN, Hyperlipidemia, Other (Hx PE, Factor V Leiden off Heparin 1330 today) Pulmonary History: COPD SHANKER OUT History: Denies Any Significant HX Other Medical History: Other (Anxiety Morbid Obesity) Anesthesia History: No Prior Anesthetic Complications Alcohol Use: none Drug use: none Medications and Allergies Gabapentin [Neurontin] 300 mg PO TID 03/27/15 [History] DULoxetine [Cymbalta] 30 mg PO HS 02/27/17 [History] Atorvastatin [Lipitor] 10 mg PO HS 03/23/17 [History] Lisinopril [Zestril] 20 mg PO 1800 03/23/17 [History] Metoprolol [Lopressor] 12.5 mg PO BID tablet 04/04/17 [Rx] Tizanidine HCl [Zanaflex] 4 mg PO TID PRN #10 capsule 04/04/17 [Rx] Furosemide [Lasix] 40 mg PO BID #60 tablet 04/05/17 [Rx] ALPRAZolam [Xanax 1 MG Tablet] 1 mg PO BID PRN 04/17/17 [History] Albuterol Sulfate [Albuterol Inhaler] 2 puff IH Q4HR PRN 08/03/18 [History] Ipratropium Neb [Atrovent Neb] 0.5 mg IH Q6HR PRN 08/03/18 [History] Levalbuterol Neb [Xopenex Neb] 1.25 mg IH Q6H PRN 08/03/18 [History] Warfarin Sodium 5 mg PO SUTUWEFR 08/03/18 [History] Warfarin Sodium 7.5 mg PO MOTHSA 08/03/18 [History] Allergy/AdvReac Type Severity Reaction Status Date / Time No Known Allergies Allergy Verified 07/29/18 00:33 - Meds/Allergy Pre-op Review Medications Reviewed: Yes Allergies Reviewed: Yes Beta Blockers on Current Med List: Yes (Metoprolol today 08) Anesthesia Results - Labs 08/07/18 07:51 08/07/18 05:42 Laboratory Tests 08/07/18 08/07/18 08/07/18 05:42 07:51 14:44 Hgb 12.5 L Hct 38.2 Plt Count 218 PT 17.3 H INR 1.5 APTT 42.1 H Heparin Anti-Xa, Unfract 0.48 Sodium 136 Potassium 4.5 BUN 20 Creatinine 0.91 - Imaging EKG: report reviewed (Sinus Tach) Additional studies: ECHO 2019 EF 65%, no pulm htn Anesthesia Exam O2 Sat O2 Sat by Pulse Oximetry 93 O2 Sat by Pulse Oximetry 93 O2 Sat by Pulse Oximetry 96 O2 Sat by Pulse Oximetry 96 O2 Sat by Pulse Oximetry 96 O2 Sat by Pulse Oximetry 92 O2 Sat by Pulse Oximetry 95 O2 Sat by Pulse Oximetry 95 O2 Sat by Pulse Oximetry 95 Vital Signs Temp Pulse Resp BP Pulse Ox 100.1 F H 119 18 134/108 94 08/03/18 13:11 08/03/18 13:11 08/03/18 13:11 08/03/18 13:11 08/03/18 13:11 Height: 5'11 Weight: 288 lbs NPO (# of Hours): MN Pain Scale: 0 - HEENT Pupil (Motor): Pupils equal, EOMI Mallampati: III Oral Opening: Less than or equal to 3 - SHANKER OUT LOC: Oriented SHANKER OUT Motor: Normal RUE, Normal LUE, Normal RLE, Normal LLE, Normal Face SHANKER OUT Sensory: Normal: RUE, LUE, RLE, LLE, Face - Cardiac Rhythm: Regular Murmur: None JVD: No Carotid Bruit: No - Pulmonary Breath Sounds: bilateral Clear Respiratory Effort: Symmetrical Anesthesia Assess/Plan ASA Score: 3 (HTN COPD Factor V Leiden) Level of consciousness: Cooperative, Oriented Anesthetic Plan: General Autologous Blood: No Monitoring Plan: Standard Monitors Recovery Plan: PACU (Discussed GA, agrees to proceed)
[2018-08-07] MEDS ORDERED: *HR* Midazolam HCl 2 MG/2 ML VIAL ONE (17:25)
[2018-08-07] MEDS ORDERED: *HR* Succinylcholine 200 MG/10 ML VIAL IVP ONE (17:25)
[2018-08-07] MEDS ORDERED: Dexamethasone 4 MG/ML VIAL ONE (17:25)
[2018-08-07] MEDS ORDERED: *HR* Rocuronium Bromide 50 MG/5 ML VIAL ONE (17:25)
[2018-08-07] MEDS ORDERED: *HR* FentaNYL (PF) 100 MCG/2 ML VIAL ONE (17:25)
[2018-08-07] MEDS ORDERED: *HR* Propofol 200 MG/20 ML VIAL IVP ONE (17:25)
[2018-08-07] MEDS ORDERED: Lidocaine -MPF 2% 2 ML VIAL ONE (17:25)
[2018-08-07] MEDS ORDERED: Ondansetron 4 MG/2 ML VIAL ONE (17:25)
[2018-08-07] MEDS ORDERED: Lidocaine -MPF 4% 5 ML AMPUL ONE (17:32)
[2018-08-07] MEDS ORDERED: Warfarin perPT PO PRN (18:00)
[2018-08-07] MEDS ORDERED: *HR* EPINEPHrine 1 MG/10 ML SYRINGE INTRATRACH PRN (18:25)
[2018-08-07] MEDS ORDERED: *HR* EPINEPHrine 1 MG/10 ML SYRINGE ONE (18:28)
--- NOTE | 2018-08-07 18:51 | Anesthesia Evaluation Post Op ---
Date of Encounter: 08/07/18 Time of Encounter: 18:50 - Vital Signs Vital Signs: Vital Signs/O2 Sat, Most Current Temp Pulse Resp BP Pulse Ox 98.0 F 80 20 123/77 95 08/07/18 18:20 08/07/18 18:40 08/07/18 18:40 08/07/18 18:40 08/07/18 18:40 - Airway Airway: Non-obstructed - Cardiovascular Regular Rate - Mental Status Mental Status: Alert & Oriented, Answers Appropriately - Pain Pain Scale: 0 Pain Scale used: Numeric (1 - 10) - Nausea Vomiting Nausea Vomiting: Not Present - Hydration Hydration: NPO, Has not voided - Discharge PostOp Status: Transfer Patient to floor
[2018-08-07] MEDS: Lisinopril 20 MG TABLET PO SCH (19:03)
[2018-08-07 22:41] LABS: Appearance of Body Fluid Hazy (Clear); Volume of Body Fluid 8 mL
[2018-08-07 22:47] LABS: Appearance of Body Fluid Cloudy (Clear); Volume of Body Fluid 12 mL
[2018-08-07 23:56] LABS: Appearance of Body Fluid Cloudy (Clear); Volume of Body Fluid 17 mL
[2018-08-08] MEDS: *HR* OxyCODONE/APAP 5/325 TABLET PO PRN ×2 (04:49→08:33)
[2018-08-08 05:31] LABS: Hematocrit 39.1 % (37.5-50.1); Hemoglobin 12.7 g/dL (12.9-16.9); Mean Corpuscular HGB Conc 32.5 g/dL (31.6-35.5); Mean Corpuscular Volume 92.2 fL (83.0-100.0); Mean Platelet Volume 9.3 fL (9.4-12.4); Platelet Count 209 K/mcL (140-400); Red Blood Count 4.24 M/mcL (4.19-5.50); Red Cell Distribution Width 14.3 % (11.5-14.5)
[2018-08-08 05:40] LABS: INR 1.3; Prothrombin Time 14.4 Seconds (9.4-12.1)
[2018-08-08 05:50] LABS: BUN/Creatinine Ratio 22 (6-26); Blood Urea Nitrogen 22 mg/dL (6-20); Calcium 9.6 mg/dL (8.6-10.3); Carbon Dioxide 32 mEq/L (23-29); Chloride 98 mEq/L (98-107); Glucose 182 mg/dL (70-105); Osmolality,Calculated 296 (280-300); Sodium 139 mEq/L (136-145); eGFR For Non-African Americans > 60 (> 60)
[2018-08-08] MEDS: MethylPREDNISolone 40 MG/ML VIAL IVP SCH ×2 (05:55→16:48)
[2018-08-08] MEDS: ALPRAZolam 1 MG TABLET PO PRN ×2 (06:02→21:15)
[2018-08-08] MEDS: Levalbuterol Neb 1.25 MG/3 ML IH PRN (07:18)
[2018-08-08] MEDS: Budesonide/Formoterol 160/4.5 1 PUFF INH IH SCH ×2 (07:18→20:11)
[2018-08-08] MEDS: Ipratropium Neb 0.5 MG NEBULIZER IH PRN (07:18)
[2018-08-08] MEDS: Heparin 25,000 UNIT/250 ML D5W 25,000 UNIT/250 ML IV.SOLN IVC SCH (08:31)
[2018-08-08] MEDS: Cefepime HCl 2,000 MG in 0.9 % Sodium Chloride Mini Bag 100 ML IVPB SCH ×2 (08:32→16:48)
[2018-08-08] MEDS: Gabapentin 300 MG CAPSULE PO SCH ×3 (08:34→21:17)
[2018-08-08] MEDS: Furosemide 40 MG TABLET PO SCH ×2 (08:34→16:48)
[2018-08-08] MEDS ORDERED: *HR* OxyCODONE/APAP 5/325 TABLET PO ONE (09:07)
[2018-08-08] MEDS ORDERED: *HR* OxyCODONE/APAP 5/325 TABLET PO PRN (09:16)
--- NOTE | 2018-08-08 11:28 | Internal Med Progress Note ---
Hospitalist Progress Note - Encounter Date of Encounter: 08/08/18 Time of Encounter: 08:45 - Subjective Interval History: Complains of chest soreness due to frequent coughing. Other than that, no worsening shortness of breath and denies any hemoptysis. - Exam Vitals: Temp Pulse Resp BP Pulse Ox 97.7 F 68 18 147/82 97 08/08/18 07:33 08/08/18 07:33 08/08/18 07:33 08/08/18 07:33 08/08/18 07:33 Exam: General: Patient is alert, oriented, no acute distress, obese, speaks in full sentences Respiratory: scattered wheezes bilaterally Cardiovascular: Regular rate and rhythm. s1 and s2 Abdomen: Soft, nontender musculoskeletal: Spontaneously moving all extremities. no edema, no calf tenderness Skin: warm, dry, intact. Neuro: Alert and oriented x3. No focal deficit - Assessment and Plan (1) Acute and chronic respiratory failure with hypoxia Current Visit: Yes Status: Acute Assessment and Plan: Secondary to HAP (recently admitted in 06/2018), CT showed LLL infiltrate ?aspiration MRSA swab -ve, strep/legionella -ve sputum culture with many epithelial cells underwent bronchoscopy yesterday: bilateral infiltrates, BAL pending continue cefepime and steroid. Scheduled bronchodilators follow up on BAL (2) Sepsis Current Visit: Yes Status: Acute Assessment and Plan: due to HAP, blood culture NGTD mx as above (3) Esophageal candidiasis Current Visit: Yes Status: Acute Assessment and Plan: noted on EGD yesterday cytology pending diflucan for 1 week (4) HAP (hospital-acquired pneumonia) Current Visit: Yes Status: Acute Assessment and Plan: as above EGD was done yesterday for any evidence of aspiration, showed esophageal plaques suspicious for candidiasis Diflucan for 1 week (5) Acute exacerbation of chronic obstructive airways disease Current Visit: Yes Status: Acute Assessment and Plan: mx per respiratory failure (6) History of pulmonary embolism Current Visit: No Status: Chronic Assessment and Plan: On Coumadin at home which was on hold due to procedure INR 1.3 today Continue heparin drip until INR therapeutic, resume Coumadin tonight (7) Factor V Leiden Current Visit: No Status: Chronic Assessment and Plan: anti-coagulation as above (8) Subtherapeutic international normalized ratio (INR) Current Visit: No Status: Acute Assessment and Plan: being bridged with heparin drip (9) Obesity (BMI 30-39.9) Current Visit: No Status: Chronic Assessment and Plan: Lifestyle modifications emphasized Outpatient sleep study DVT Prophylaxis: hep gtt - Time Spent with Patient Total time spent is greater than 50% in coordination of care (as documented) at patient's floor/unit and/or counseling patient: Greater than 35 minutes Plan of Care Discussed with: patient (discussed with RN and Pulmonology in detail) Internal Medicine: Result - Labs CBC & Chem 7: 08/08/18 05:20 08/08/18 05:20 Labs: Short CBC 08/08/18 Range/Units 05:20 WBC 10.1 (4.3-11.1) K/mcL Hgb 12.7 L (12.9-16.9) g/dL Hct 39.1 (37.5-50.1) % Plt Count 209 (140-400) K/mcL BMP 08/08/18 05:20 Sodium 139 Potassium 5.0 Chloride 98 Carbon Dioxide 32 H BUN 22 H Creatinine 0.99 Glucose 182 H Calcium 9.6 - ABG Interpretation ABG results: PT/INR, D-dimer PT 14.4 Seconds (9.4-12.1) H 08/08/18 05:20 Consult Discharge Plan - Plan Referrals: Srinivas Pearce DO [Primary Care Provider] - (2) Sepsis Qualifiers: Sepsis type: sepsis due to unspecified organism Qualified Code(s): A41.9 - Sepsis, unspecified organism
[2018-08-08] MEDS: *HR* OxyCODONE/APAP 7.5/325 TABLET PO PRN ×3 (13:14→21:16)
[2018-08-08] MEDS: Fluconazole 100 MG TABLET PO SCH (13:15)
[2018-08-08] MEDS: Ipratropium/Albuterol Neb 3 ML IH SCH ×3 (16:21→20:11)
[2018-08-08] MEDS: Lisinopril 20 MG TABLET PO SCH (16:48)
[2018-08-08] MEDS ORDERED: Warfarin perPT PO PRN (18:00)
[2018-08-08] MEDS ORDERED: *HR* Warfarin 3 MG TABLET PO ONE (18:00)
[2018-08-09] MEDS: Cefepime HCl 2,000 MG in 0.9 % Sodium Chloride Mini Bag 100 ML IVPB SCH ×4 (00:10→23:34)
[2018-08-09] MEDS: Ipratropium/Albuterol Neb 3 ML IH SCH ×6 (00:15→20:03)
[2018-08-09] MEDS: *HR* OxyCODONE/APAP 7.5/325 TABLET PO PRN ×6 (01:08→21:46)
[2018-08-09] MEDS: tiZANidine 4 MG TABLET PO PRN ×2 (01:08→21:46)
[2018-08-09 04:45] LABS: Basophils % 0.3 %; Hematocrit 35.9 % (37.5-50.1); Hemoglobin 11.8 g/dL (12.9-16.9); Immature Granulocytes % 4.1 % (0-4); Lymphocytes # 1.2 K/mcL (0.6-4.6); Lymphocytes % 10.2 %; Mean Corpuscular HGB Conc 32.9 g/dL (31.6-35.5); Mean Corpuscular Hemoglobin 30.1 pg (28.0-33.3); Mean Corpuscular Volume 91.6 fL (83.0-100.0); Mean Platelet Volume 9.1 fL (9.4-12.4); Monocytes % 8.5 %; Neutrophils # 8.9 K/mcL (1.6-8.9); Platelet Count 214 K/mcL (140-400); Red Blood Count 3.92 M/mcL (4.19-5.50); Red Cell Distribution Width 13.9 % (11.5-14.5); Segmented Neutrophils % 76.9 %
[2018-08-09 04:52] LABS: INR 1.1; Prothrombin Time 12.5 Seconds (9.4-12.1)
[2018-08-09 05:05] LABS: BUN/Creatinine Ratio 22 (6-26); Blood Urea Nitrogen 20 mg/dL (6-20); Calcium 8.6 mg/dL (8.6-10.3); Carbon Dioxide 30 mEq/L (23-29); Chloride 99 mEq/L (98-107); Glucose 217 mg/dL (70-105); Magnesium 2.5 mg/dL (1.6-2.6); Osmolality,Calculated 291 (280-300); Potassium 4.3 mEq/L (3.5-5.1); Sodium 136 mEq/L (136-145); eGFR For Non-African Americans > 60 (> 60)
[2018-08-09] MEDS: MethylPREDNISolone 40 MG/ML VIAL IVP SCH ×2 (05:32→17:13)
[2018-08-09] MEDS: Heparin 25,000 UNIT/250 ML D5W 25,000 UNIT/250 ML IV.SOLN IVC SCH ×2 (06:22→17:18)
[2018-08-09] MEDS: Budesonide/Formoterol 160/4.5 1 PUFF INH IH SCH ×2 (08:06→20:02)
[2018-08-09] MEDS: Fluconazole 100 MG TABLET PO SCH (09:15)
[2018-08-09] MEDS: Furosemide 40 MG TABLET PO SCH ×2 (09:15→17:13)
[2018-08-09] MEDS: Gabapentin 300 MG CAPSULE PO SCH ×3 (09:15→21:47)
[2018-08-09] MEDS: ALPRAZolam 1 MG TABLET PO PRN ×2 (09:15→21:46)
--- NOTE | 2018-08-09 12:02 | Internal Med Progress Note ---
Hospitalist Progress Note - Encounter Date of Encounter: 08/09/18 Time of Encounter: 09:00 - Subjective Interval History: Reports improvement in his shortness of breath although he continues to have soreness with coughing. No fever overnight - Exam Vitals: Temp Pulse Resp BP Pulse Ox 97.9 F 74 18 127/64 94 08/09/18 11:33 08/09/18 11:33 08/09/18 11:36 08/09/18 11:33 08/09/18 11:36 Exam: General: Patient is alert, oriented, no acute distress, obese, speaks in full sentences Respiratory: scattered wheezes bilaterally with improving aeration Cardiovascular: Regular rate and rhythm. s1 and s2 Abdomen: Soft, nontender musculoskeletal: Spontaneously moving all extremities. no edema, no calf tenderness Skin: warm, dry, intact. Neuro: Alert and oriented x3. No focal deficit - Assessment and Plan (1) Acute and chronic respiratory failure with hypoxia Current Visit: Yes Status: Acute Assessment and Plan: Secondary to HAP (recently admitted in 06/2018), CT showed LLL infiltrate ?aspiration MRSA swab -ve, strep/legionella -ve sputum culture with many epithelial cells underwent bronchoscopy 08/07: bilateral infiltrates discussed with microbiology today, BAL will be finalized tomorrow morning continue cefepime and steroid. Scheduled bronchodilators (2) Sepsis Current Visit: Yes Status: Acute Assessment and Plan: due to HAP, blood culture NGTD mx as above (3) Esophageal candidiasis Current Visit: Yes Status: Acute Assessment and Plan: noted on EGD 08/07 cytology -ve for malignant cells with fungal organisms identified on esophagus brushing diflucan for 1 week, D2 today (4) HAP (hospital-acquired pneumonia) Current Visit: Yes Status: Acute Assessment and Plan: as above EGD was done in conjunction with bronchoscopy on 08/07 for any evidence of aspiration, showed esophageal plaques suspicious for candidiasis Diflucan for 1 week (5) Acute exacerbation of chronic obstructive airways disease Current Visit: Yes Status: Acute Assessment and Plan: mx per respiratory failure (6) History of pulmonary embolism Current Visit: No Status: Chronic Assessment and Plan: On Coumadin at home which was on hold due to procedure INR 1.1 today, warfarin resumed yesterday. Pharmacy to dose Continue heparin drip until INR therapeutic (7) Factor V Leiden Current Visit: No Status: Chronic Assessment and Plan: anti-coagulation as above (8) Subtherapeutic international normalized ratio (INR) Current Visit: No Status: Acute Assessment and Plan: being bridged with heparin drip (9) Obesity (BMI 30-39.9) Current Visit: No Status: Chronic Assessment and Plan: Lifestyle modifications emphasized Outpatient sleep study DVT Prophylaxis: hep gtt - Time Spent with Patient Total time spent is greater than 50% in coordination of care (as documented) at patient's floor/unit and/or counseling patient: 25 - 35 minutes Plan of Care Discussed with: patient (Discussed with microbiology lab) Internal Medicine: Result - Labs CBC & Chem 7: 08/09/18 04:27 08/09/18 04:27 Labs: Short CBC 08/09/18 Range/Units 04:27 WBC 11.6 H (4.3-11.1) K/mcL Hgb 11.8 L (12.9-16.9) g/dL Hct 35.9 L (37.5-50.1) % Plt Count 214 (140-400) K/mcL Neutrophils # 8.9 (1.6-8.9) K/mcL BMP 08/09/18 04:27 Sodium 136 Potassium 4.3 Chloride 99 Carbon Dioxide 30 H BUN 20 Creatinine 0.91 Glucose 217 H Calcium 8.6 - ABG Interpretation ABG results: PT/INR, D-dimer PT 12.5 Seconds (9.4-12.1) H 08/09/18 04:27 Consult Discharge Plan - Plan Referrals: Srinivas Pearce DO [Primary Care Provider] - (2) Sepsis Qualifiers: Sepsis type: sepsis due to unspecified organism Qualified Code(s): A41.9 - Sepsis, unspecified organism
[2018-08-09] MEDS: Lisinopril 20 MG TABLET PO SCH (17:13)
[2018-08-09] MEDS ORDERED: *HR* Warfarin 5 MG TABLET PO ONE (18:00)
[2018-08-10] MEDS: Ipratropium/Albuterol Neb 3 ML IH SCH ×7 (00:08→23:34)
[2018-08-10] MEDS: *HR* OxyCODONE/APAP 7.5/325 TABLET PO PRN ×5 (04:00→20:31)
[2018-08-10 04:13] LABS: INR 1.1; Prothrombin Time 12.4 Seconds (9.4-12.1)
[2018-08-10] MEDS: Heparin 25,000 UNIT/250 ML D5W 25,000 UNIT/250 ML IV.SOLN IVC SCH (04:29)
[2018-08-10] MEDS: MethylPREDNISolone 40 MG/ML VIAL IVP SCH ×2 (05:06→17:18)
[2018-08-10] MEDS: Budesonide/Formoterol 160/4.5 1 PUFF INH IH SCH ×2 (08:09→20:44)
[2018-08-10] MEDS: Cefepime HCl 2,000 MG in 0.9 % Sodium Chloride Mini Bag 100 ML IVPB SCH ×2 (08:41→15:02)
[2018-08-10] MEDS: ALPRAZolam 1 MG TABLET PO PRN ×2 (08:42→20:09)
[2018-08-10] MEDS: Furosemide 40 MG TABLET PO SCH ×2 (08:42→17:18)
[2018-08-10] MEDS: Gabapentin 300 MG CAPSULE PO SCH ×3 (08:42→20:09)
[2018-08-10] MEDS: Fluconazole 100 MG TABLET PO SCH (08:42)
--- NOTE | 2018-08-10 12:20 | Internal Med Progress Note ---
Hospitalist Progress Note - Encounter Date of Encounter: 08/10/18 Time of Encounter: 08:45 - Subjective Interval History: continues to have intermittent bouts of tachycardia with increasing O2 requirement as well as severe spells of cough. No fever overnight. Patient voiced extreme frustration over the lack of significant clinical improvement and requested for a second opinion. Discussed with [facility] transfer center but pt did not quite meet the requirement for hospital to hospital transfer given the objective findings - Exam Vitals: Temp Pulse Resp BP Pulse Ox 98.3 F 65 20 120/75 95 08/10/18 11:44 08/10/18 11:44 08/10/18 11:44 08/10/18 11:44 08/10/18 11:44 Exam: General: Patient is alert, oriented, mild distress but able to speak in full sentences Respiratory: scattered wheezes bilaterally with improving aeration Cardiovascular: Regular rate and rhythm. s1 and s2 Abdomen: Soft, nontender musculoskeletal: Spontaneously moving all extremities. no edema, no calf tenderness Skin: warm, dry, intact. Neuro: Alert and oriented x3. No focal deficit - Assessment and Plan (1) Acute and chronic respiratory failure with hypoxia Current Visit: Yes Status: Acute Assessment and Plan: Secondary to HAP (recently admitted in 06/2018), CT showed LLL infiltrate ?aspiration MRSA swab -ve, strep/legionella -ve sputum culture with many epithelial cells underwent bronchoscopy 08/07: bilateral infiltrates BAL from RUL, RML, and LLL all showed normal respi gemma complete cefepime today (D7). Continue steroid and Scheduled bronchodilators, will plan to discharge tomorrow with tapering course of steroid and close pulmonary follow up (2) Sepsis Current Visit: Yes Status: Acute Assessment and Plan: due to HAP, blood culture NGTD mx as above (3) Esophageal candidiasis Current Visit: Yes Status: Acute Assessment and Plan: noted on EGD 08/07 cytology -ve for malignant cells with fungal organisms identified on esophagus brushing diflucan for 1 week, D3 today (4) HAP (hospital-acquired pneumonia) Current Visit: Yes Status: Acute Assessment and Plan: as above EGD was done in conjunction with bronchoscopy on 08/07 for any evidence of aspiration, showed esophageal plaques suspicious for candidiasis Diflucan for 1 week (5) Acute exacerbation of chronic obstructive airways disease Current Visit: Yes Status: Acute Assessment and Plan: mx per respiratory failure (6) History of pulmonary embolism Current Visit: No Status: Chronic Assessment and Plan: On Coumadin at home which was on hold due to procedure INR is again 1.1 today, pharmacy to assist with Coumadin dosing Continue heparin drip until INR therapeutic, anticipate switching to lovenox tomorrow and d/c (7) Factor V Leiden Current Visit: No Status: Chronic Assessment and Plan: anti-coagulation as above (8) Subtherapeutic international normalized ratio (INR) Current Visit: No Status: Acute Assessment and Plan: being bridged with heparin drip (9) Obesity (BMI 30-39.9) Current Visit: No Status: Chronic Assessment and Plan: Lifestyle modifications emphasized Outpatient sleep study DVT Prophylaxis: hep gtt - Time Spent with Patient Total time spent is greater than 50% in coordination of care (as documented) at patient's floor/unit and/or counseling patient: 25 - 35 minutes Plan of Care Discussed with: patient Internal Medicine: Result - Labs CBC & Chem 7: 08/09/18 04:27 08/09/18 04:27 - ABG Interpretation ABG results: PT/INR, D-dimer PT 12.4 Seconds (9.4-12.1) H 08/10/18 03:55 Consult Discharge Plan - Plan Referrals: Srinivas Pearce DO [Primary Care Provider] - (2) Sepsis Qualifiers: Sepsis type: sepsis due to unspecified organism Qualified Code(s): A41.9 - Sepsis, unspecified organism
--- NOTE | 2018-08-10 14:59 | Emergency Department Note ---
Disposition Clinical Impression: Chest pain Qualifiers: Chest pain type: unspecified Qualified Code(s): R07.9 - Chest pain, unspecified Pneumonia Qualifiers: Laterality: left Lung location: lower lobe of lung Qualified Code(s): J18.1 - Disposition: Admitted As Inpatient Condition: Fair Time of Disposition: 23:50 General Adult HPI - General Chief complaint: ED Shortness of Breath/Dyspnea Stated complaint: ERNST Time Seen by Provider: 08/03/18 13:14 Source: patient Mode of arrival: ambulatory Limitations: no limitations - History of Present Illness Pain Scale: 9 - Related Data Home Medications Medication Instructions Recorded Confirmed Gabapentin [Neurontin] 300 mg PO TID 03/27/15 08/03/18 DULoxetine [Cymbalta] 30 mg PO HS 02/27/17 08/03/18 Atorvastatin [Lipitor] 10 mg PO HS 03/23/17 08/03/18 Lisinopril [Zestril] 20 mg PO 1800 03/23/17 08/03/18 ALPRAZolam [Xanax 1 MG Tablet] 1 mg PO BID PRN 04/17/17 08/03/18 Albuterol Sulfate [Albuterol 2 puff IH Q4HR PRN 08/03/18 08/03/18 Inhaler] Ipratropium Neb [Atrovent Neb] 0.5 mg IH Q6HR PRN 08/03/18 08/03/18 Levalbuterol Neb [Xopenex Neb] 1.25 mg IH Q6H PRN 08/03/18 08/03/18 Warfarin Sodium 5 mg PO SUTUWEFR 08/03/18 08/03/18 Warfarin Sodium 7.5 mg PO MOTHSA 08/03/18 08/03/18 Previous Rx's Medication Instructions Recorded Metoprolol [Lopressor] 12.5 mg PO BID tablet 04/04/17 Tizanidine HCl [Zanaflex] 4 mg PO TID PRN #10 capsule 04/04/17 Furosemide [Lasix] 40 mg PO BID #60 tablet 04/05/17 Allergies Allergy/AdvReac Type Severity Reaction Status Date / Time No Known Allergies Allergy Verified 07/29/18 00:33 Past Medical History - Past Medical History Medical history: Reports: COPD, DVT, hypertension, pulmonary embolus, other Surgical history: Reports: non-contributory Psychiatric history: Reports: anxiety - Social History Smoking Status: Former smoker Smokeless Tobacco Status: Yes Alcohol use: Reports: none Drug use: Reports: none Physical Exam - General Limitations: no limitations General appearance: alert, in no apparent distress Course Vital Signs Temperature 100.1 F H 08/03/18 13:11 Pulse Rate 119 08/03/18 13:11 Respiratory Rate 18 08/03/18 13:11 Blood Pressure 134/108 08/03/18 13:11 O2 Sat by Pulse Oximetry 94 08/03/18 13:11 Temperature 98.3 F 08/10/18 11:44 Pulse Rate 65 08/10/18 11:44 Respiratory Rate 20 08/10/18 11:44 Blood Pressure 120/75 08/10/18 11:44 O2 Sat by Pulse Oximetry 95 08/10/18 11:44 Oxygen Delivery Oxygen Delivery Room Air Medical Decision Making - Lab Data Result diagrams: 08/09/18 04:27 08/09/18 04:27 Lab Results 08/03/18 08/03/18 08/03/18 Range/Units 13:33 13:34 13:34 WBC 17.8 H D (4.3-11.1) K/mcL RBC 4.91 (4.19-5.50) M/mcL Hgb 14.9 (12.9-16.9) g/dL Hct 44.1 (37.5-50.1) % MCV 89.8 (83.0-100.0) fL MCH 30.3 (28.0-33.3) pg MCHC 33.8 (31.6-35.5) g/dL RDW 13.3 (11.5-14.5) % Plt Count 262 (140-400) K/mcL MPV 9.2 L (9.4-12.4) fL Immature Gran % 0.5 (0-4) % Seg Neutrophils % 71.6 % Lymphocytes % 14.7 % Monocytes % 12.5 % Eosinophils % 0.5 % Basophils % 0.2 % Neutrophils # 12.7 H (1.6-8.9) K/mcL Lymphocytes # 2.6 (0.6-4.6) K/mcL Monocytes # 2.2 H (0.0-1.3) K/mcL Eosinophils # 0.1 (0.0-0.6) K/mcL Basophils # 0.0 (0.0-0.2) K/mcL PT 17.4 H (9.4-12.1) Seconds INR 1.5 Sodium 139 (136-145) mEq/L Potassium 3.2 L (3.5-5.1) mEq/L Chloride 96 L (98-107) mEq/L Carbon Dioxide 34 H (23-29) mEq/L BUN 13 (6-20) mg/dL Creatinine 1.00 (0.70-1.30) mg/dL Est GFR ( Amer) > 60 (> 60) Est GFR (Non-Af Amer) > 60 (> 60) BUN/Creatinine Ratio 13 (6-26) Glucose 119 H (70-105) mg/dL Calculated Osmolality 289 (280-300) Lactic Acid (0.5-2.2) mmol/L Calcium 10.4 H (8.6-10.3) mg/dL Troponin I < 0.03 (< 0.04) ng/mL Urine Color (Yellow) Urine Clarity (Clear) Urine pH (5.0-8.0) pH Units Ur Specific Post (1.010-1.025) Urine Protein (Neg-Trace) mg/dL Urine Glucose (UA) (Normal) mg/dL Urine Ketones (Negative) mg/dL Urine Blood (Negative) Urine Nitrite (Negative) Urine Bilirubin (Negative) Urine Urobilinogen (Normal) mg/dL Ur Leukocyte Esterase (Negative) Ur Culture Indicated? (NO) 08/03/18 08/03/18 Range/Units 14:18 15:58 WBC (4.3-11.1) K/mcL RBC (4.19-5.50) M/mcL Hgb (12.9-16.9) g/dL Hct (37.5-50.1) % MCV (83.0-100.0) fL MCH (28.0-33.3) pg MCHC (31.6-35.5) g/dL RDW (11.5-14.5) % Plt Count (140-400) K/mcL MPV (9.4-12.4) fL Immature Gran % (0-4) % Seg Neutrophils % % Lymphocytes % % Monocytes % % Eosinophils % % Basophils % % Neutrophils # (1.6-8.9) K/mcL Lymphocytes # (0.6-4.6) K/mcL Monocytes # (0.0-1.3) K/mcL Eosinophils # (0.0-0.6) K/mcL Basophils # (0.0-0.2) K/mcL PT (9.4-12.1) Seconds INR Sodium (136-145) mEq/L Potassium (3.5-5.1) mEq/L Chloride (98-107) mEq/L Carbon Dioxide (23-29) mEq/L BUN (6-20) mg/dL Creatinine (0.70-1.30) mg/dL Est GFR ( Amer) (> 60) Est GFR (Non-Af Amer) (> 60) BUN/Creatinine Ratio (6-26) Glucose (70-105) mg/dL Calculated Osmolality (280-300) Lactic Acid 1.6 (0.5-2.2) mmol/L Calcium (8.6-10.3) mg/dL Troponin I (< 0.04) ng/mL Urine Color Yellow (Yellow) Urine Clarity Clear (Clear) Urine pH 8.0 (5.0-8.0) pH Units Ur Specific Post 1.010 (1.010-1.025) Urine Protein Negative (Neg-Trace) mg/dL Urine Glucose (UA) Normal (Normal) mg/dL Urine Ketones Negative (Negative) mg/dL Urine Blood Negative (Negative) Urine Nitrite Negative (Negative) Urine Bilirubin Negative (Negative) Urine Urobilinogen Normal (Normal) mg/dL Ur Leukocyte Esterase Negative (Negative) Ur Culture Indicated? NO (NO) Attestation Statement - Attestation Attestation: I examined this patient and my medical decision-making was reviewed with the Resident Physician. I agree with the documented findings, disposition and treatment plan as described.
[2018-08-10 16:12] LABS: Influenza A PCR Body Fluid NOT DETECTED; Influenza B PCR Body Fluid NOT DETECTED; RVP Body Fluid Source BAL RML; RVP Body Fluid Source BAL RUL
[2018-08-10 16:13] LABS: Influenza A PCR Body Fluid NOT DETECTED; Influenza B PCR Body Fluid NOT DETECTED; RVP Body Fluid Source BAL LLL
[2018-08-10] MEDS: tiZANidine 4 MG TABLET PO PRN (16:30)
--- NOTE | 2018-08-10 16:50 | Pulmonology Progress Note ---
Date of Encounter: 08/10/18 Time of Encounter: 16:48 Assessment and Plan (1) Acute and chronic respiratory failure with hypoxia Current Visit: Yes Status: Acute He has been weaned off supplemental oxygen at this time will need walking pulse oximetry prior to discharge goal saturations are greater than 88% around 92% at all times (2) Pneumonia Current Visit: Yes Status: Acute Suspected left lower lobe pneumonia and this was visualized on bronchoscopy cultures as far as been negative he has been on cefepime for approximately a week. I recommend adding an atypical coverage as well for 1 more week this should be doxycycline I did warn the patient about photosensitivity with this medication I did reassure the patient that this will take some time to fully resolve Qualifiers: Laterality: left Lung location: lower lobe of lung Qualified Code(s): J18.1 - Lobar pneumonia, unspecified organism (3) Acute exacerbation of chronic obstructive airways disease Current Visit: Yes Status: Acute Would continue his systemic glucocorticoids and the patient will need a prolonged taper over the next 6 weeks starting at 40 mg and decreasing by 10 mg weekly I will follow up in clinic to see how he is doing (4) History of pulmonary embolism Current Visit: No Status: Chronic Transitioned back to long-term anticoagulation he takes warfarin at home is currently on heparin infusion (5) Suspected sleep apnea Current Visit: No Status: Chronic Outpatient polysomnogram Subjective Principal diagnosis: COPD exacerbation with recurrent pneumonia Interval history: Mr. Oliva still complaining of significant cough which unfortunately has been nonproductive and he still having coughing fractures and so the point that he feels dizzy denies any hemoptysis I did have a little bit of hemoptysis postprocedure a few days back but nothing since. He is frustrated because he feels like he is not getting back to his baseline and he is afraid that if he is discharged he will and upright back in the hospital. When I was in the room wi th him he did not have an oxygen requirement Objective PUL Vital signs: Last Vital Signs Temp 98.3 F 08/10/18 11:44 Pulse 65 08/10/18 11:44 Resp 20 08/10/18 11:44 BP 120/75 08/10/18 11:44 Pulse Ox 95 08/10/18 11:44 General appearance: no acute distress Eyes: nonicteric ENT: oropharynx moist Mallampati (class): 4 Effort: mildly labored Auscultation: right: rhonchi, bilateral: wheezes Cardiovascular: regular rate and rhythm Gastrointestinal: normoactive bowel sounds, soft, non-tender Integumentary: normal Extremities: no cyanosis, no clubbing, edema Musculoskeletal: no deformities normal mental status, non-focal exam mood appropriate Results - Laboratory Findings CBC and BMP: 08/09/18 04:27 08/09/18 04:27 PT/INR, D-dimer PT 12.4 Seconds (9.4-12.1) H 08/10/18 03:55 Abnormal lab findings: Abnormal lab results WBC 11.6 K/mcL (4.3-11.1) H 08/09/18 04:27 RBC 3.92 M/mcL (4.19-5.50) L 08/09/18 04:27 Hgb 11.8 g/dL (12.9-16.9) L 08/09/18 04:27 Hct 35.9 % (37.5-50.1) L 08/09/18 04:27 MPV 9.1 fL (9.4-12.4) L 08/09/18 04:27 Immature Gran % 4.1 % (0-4) H 08/09/18 04:27 12.7 K/mcL (1.6-8.9) H 08/03/18 13:34 2.2 K/mcL (0.0-1.3) H 08/03/18 13:34 PT 12.4 Seconds (9.4-12.1) H 08/10/18 03:55 APTT 42.1 Seconds (26.0-36.0) H 08/07/18 14:44 Heparin Anti-Xa, Unfract 0.20 IU/mL (0.30-0.70) L 08/09/18 19:09 Potassium 3.2 mEq/L (3.5-5.1) L 08/03/18 13:33 Chloride 96 mEq/L (98-107) L 08/03/18 13:33 Carbon Dioxide 30 mEq/L (23-29) H 08/09/18 04:27 BUN 22 mg/dL (6-20) H 08/08/18 05:20 Glucose 217 mg/dL (70-105) H 08/09/18 04:27 Calcium 10.4 mg/dL (8.6-10.3) H 08/03/18 13:33 Fluid Appearance Cloudy (Clear) A 08/07/18 18:34 Fluid Appearance Cloudy (Clear) A 08/07/18 18:34 Fluid Appearance Hazy (Clear) A 08/07/18 18:34 - Microbiology Findings Microbiology Findings: Microbiology, Last 48 Hours 08/07/18 18:34 Respiratory Culture - Final Right Middle Lobe Lung 08/07/18 18:34 Respiratory Culture - Final Left Lower Lobe Lung 08/07/18 18:34 Respiratory Culture - Final Right Upper Lobe Lung 08/07/18 18:34 Acid Fast Stain - Final Left Lower Lobe Lung 08/07/18 18:34 Acid Fast Stain - Final Right Upper Lobe Lung 08/07/18 18:34 Acid Fast Stain - Final Right Middle Lobe Lung 08/03/18 16:32 Blood Culture - Final Peripheral Venipuncture No growth. Final report. 08/03/18 16:26 Blood Culture - Final Peripheral Venipuncture No growth. Final report. - Clinical Findings Intake & Output: Intake & Output 08/10/18 08/10/18 08/10/18 07:59 15:59 23:59 Intake Total 396 / 541.5 145.5 / 541.5 Output Total 650 / 1150 500 / 1150 Balance -254 / -608.5 -354.5 / -608.5 Consult Discharge Plan - Plan Referrals: Srinivas Pearce DO [Primary Care Provider] -
[2018-08-10] MEDS: Lisinopril 20 MG TABLET PO SCH (17:18)
[2018-08-10] MEDS ORDERED: *HR* Warfarin 5 MG TABLET PO ONE (18:00)
[2018-08-10 19:36] LABS: HSV Source BAL LLL; HSV Source BAL RML; HSV Source BAL RUL
[2018-08-10] MEDS: Doxycycline 100 MG CAPSULE PO SCH (20:09)
[2018-08-11] MEDS: Cefepime HCl 2,000 MG in 0.9 % Sodium Chloride Mini Bag 100 ML IVPB SCH ×2 (00:09→07:41)
[2018-08-11] MEDS: Heparin 25,000 UNIT/250 ML D5W 25,000 UNIT/250 ML IV.SOLN IVC SCH ×2 (02:46→16:07)
[2018-08-11] MEDS: *HR* OxyCODONE/APAP 7.5/325 TABLET PO PRN ×5 (02:47→20:52)
[2018-08-11] MEDS: Ipratropium/Albuterol Neb 3 ML IH SCH ×6 (05:20→23:19)
[2018-08-11] MEDS: MethylPREDNISolone 40 MG/ML VIAL IVP SCH ×2 (05:59→17:32)
[2018-08-11] MEDS: ALPRAZolam 1 MG TABLET PO PRN ×2 (06:07→17:32)
[2018-08-11 06:08] LABS: Hematocrit 38.9 % (37.5-50.1); Hemoglobin 12.7 g/dL (12.9-16.9); Mean Corpuscular HGB Conc 32.6 g/dL (31.6-35.5); Mean Corpuscular Hemoglobin 30.5 pg (28.0-33.3); Mean Corpuscular Volume 93.3 fL (83.0-100.0); Mean Platelet Volume 9.5 fL (9.4-12.4); Platelet Count 221 K/mcL (140-400); Red Blood Count 4.17 M/mcL (4.19-5.50); Red Cell Distribution Width 14.4 % (11.5-14.5)
[2018-08-11 06:20] LABS: INR 1.4; Prothrombin Time 15.2 Seconds (9.4-12.1)
[2018-08-11 06:27] LABS: BUN/Creatinine Ratio 23 (6-26); Blood Urea Nitrogen 24 mg/dL (6-20); Calcium 9.3 mg/dL (8.6-10.3); Carbon Dioxide 34 mEq/L (23-29); Chloride 96 mEq/L (98-107); Glucose 215 mg/dL (70-105); Osmolality,Calculated 291 (280-300); Potassium 5.2 mEq/L (3.5-5.1); Sodium 135 mEq/L (136-145); eGFR For Non-African Americans > 60 (> 60)
[2018-08-11 06:46] LABS: Lymphocytes # 1.6 K/mcL (0.6-4.6); Monocytes # 0.9 K/mcL (0.0-1.3); Neutrophils # 12.7 K/mcL (1.6-8.9)
[2018-08-11] MEDS: Doxycycline 100 MG CAPSULE PO SCH ×2 (07:40→20:52)
[2018-08-11] MEDS: Fluconazole 100 MG TABLET PO SCH (07:40)
[2018-08-11] MEDS: Furosemide 40 MG TABLET PO SCH ×2 (07:40→16:17)
[2018-08-11] MEDS: Gabapentin 300 MG CAPSULE PO SCH ×3 (07:40→20:52)
[2018-08-11] MEDS: Budesonide/Formoterol 160/4.5 1 PUFF INH IH SCH ×2 (07:57→20:39)
[2018-08-11 08:41] LABS: RSV PCR Body Fluid NOT DETECTED
[2018-08-11 08:42] LABS: RSV PCR Body Fluid NOT DETECTED
--- NOTE | 2018-08-11 11:04 | Internal Med Progress Note ---
Hospitalist Progress Note - Encounter Date of Encounter: 08/11/18 Time of Encounter: 09:00 - Subjective Interval History: Continues to be dyspneic with spells of cough although objectively his O2 sat had been improving as well as the HR. WBC did increase to 15.5 however. No fever overnight. - Exam Vitals: Temp Pulse Resp BP Pulse Ox 97.9 F 66 20 163/71 96 08/11/18 07:53 08/11/18 07:53 08/11/18 07:59 08/11/18 07:53 08/11/18 07:59 Exam: General: Patient is alert, oriented, mild distress but appears to be more comfortable than yesterday Respiratory: scattered wheezes bilaterally Cardiovascular: Regular rate and rhythm. s1 and s2 Abdomen: Soft, nontender musculoskeletal: Spontaneously moving all extremities. no edema, no calf tenderness Skin: warm, dry, intact. Neuro: Alert and oriented x3. No focal deficit - Assessment and Plan (1) Acute and chronic respiratory failure with hypoxia Current Visit: Yes Status: Acute Assessment and Plan: Secondary to HAP (recently admitted in 06/2018), CT showed LLL infiltrate Although there was a initial suspicion for aspiration PNA, pt did not show any evidence of aspiration on speech evaluation nor showed any sequealae of aspiration on EGD. Therefore, it appears to be more related to hospital acquired pneumonia with his recent admissions. MRSA swab -ve, strep/legionella -ve sputum culture with many epithelial cells underwent bronchoscopy 08/07: bilateral infiltrates BAL from RUL, RML, and LLL all showed normal respi gemma completed cefepime yesterday (D7). appreciate pulm input, will add Doxycycline 100mg BID for 7 more days for atypical coverage. Continue steroid and Scheduled bronchodilators continue to monitor WBC (2) Sepsis Current Visit: Yes Status: Acute Assessment and Plan: due to HAP, blood culture NGTD mx as above (3) Esophageal candidiasis Current Visit: Yes Status: Acute Assessment and Plan: noted on EGD 08/07 cytology -ve for malignant cells with fungal organisms identified on esophagus brushing diflucan for 1 week, D4 today (4) HAP (hospital-acquired pneumonia) Current Visit: Yes Status: Acute Assessment and Plan: as above EGD was done in conjunction with bronchoscopy on 08/07 for any evidence of aspiration, showed esophageal plaques suspicious for candidiasis Diflucan for 1 week (5) Acute exacerbation of chronic obstructive airways disease Current Visit: Yes Status: Acute Assessment and Plan: mx per respiratory failure Appreciate Pulm input, with prescribe a prolonged taper over the next 6 weeks starting at 40 mg and decreasing by 10 mg weekly (6) History of pulmonary embolism Current Visit: No Status: Chronic Assessment and Plan: On Coumadin at home which was on hold due to procedure INR subtherapeutic, pharmacy to assist with Coumadin dosing Continue heparin drip until INR therapeutic, anticipate switching to lovenox at d/c (7) Factor V Leiden Current Visit: No Status: Chronic Assessment and Plan: anti-coagulation as above (8) Subtherapeutic international normalized ratio (INR) Current Visit: No Status: Acute Assessment and Plan: being bridged with heparin drip (9) Obesity (BMI 30-39.9) Current Visit: No Status: Chronic Assessment and Plan: Lifestyle modifications emphasized Outpatient sleep study DVT Prophylaxis: hep gtt - Time Spent with Patient Total time spent is greater than 50% in coordination of care (as documented) at patient's floor/unit and/or counseling patient: 25 - 35 minutes Plan of Care Discussed with: patient (discussed with pulmonology) Internal Medicine: Result - Labs CBC & Chem 7: 08/11/18 05:23 08/11/18 05:23 Labs: Short CBC 08/11/18 Range/Units 05:23 WBC 15.5 H (4.3-11.1) K/mcL Hgb 12.7 L (12.9-16.9) g/dL Hct 38.9 (37.5-50.1) % Plt Count 221 (140-400) K/mcL Neutrophils # 12.7 H (1.6-8.9) K/mcL BMP 08/11/18 05:23 Sodium 135 L Potassium 5.2 H Chloride 96 L Carbon Dioxide 34 H BUN 24 H Creatinine 1.04 Glucose 215 H Calcium 9.3 - ABG Interpretation ABG results: PT/INR, D-dimer PT 15.2 Seconds (9.4-12.1) H 08/11/18 05:23 Consult Discharge Plan - Plan Referrals: Srinivas Pearce DO [Primary Care Provider] - __ (2) Sepsis Qualifiers: Sepsis type: sepsis due to unspecified organism Qualified Code(s): A41.9 - Sepsis, unspecified organism
[2018-08-11] MEDS: Acetylcysteine 10% 2 ML INHSOL IH SCH ×4 (11:39→23:19)
[2018-08-11] MEDS ORDERED: *HR* Warfarin 5 MG TABLET PO ONE (12:58)
[2018-08-11] MEDS: Lisinopril 20 MG TABLET PO SCH (17:32)
[2018-08-12] MEDS ORDERED: 0.9 % Sodium Chloride 1,000 ML IVC ONE (00:01)
[2018-08-12] MEDS: tiZANidine 4 MG TABLET PO PRN (01:25)
[2018-08-12] MEDS: *HR* OxyCODONE/APAP 7.5/325 TABLET PO PRN ×5 (01:25→18:42)
[2018-08-12 01:46] LABS: Basophils # 0.1 K/mcL (0.0-0.2); Basophils % 0.5 %; Hematocrit 35.7 % (37.5-50.1); Hemoglobin 11.7 g/dL (12.9-16.9); Immature Granulocytes % 11.4 % (0-4); Lymphocytes # 0.8 K/mcL (0.6-4.6); Lymphocytes % 6.1 %; Mean Corpuscular HGB Conc 32.8 g/dL (31.6-35.5); Mean Corpuscular Hemoglobin 30.5 pg (28.0-33.3); Mean Corpuscular Volume 93.2 fL (83.0-100.0); Mean Platelet Volume 9.2 fL (9.4-12.4); Monocytes # 1.1 K/mcL (0.0-1.3); Monocytes % 8.4 %; Neutrophils # 9.5 K/mcL (1.6-8.9); Platelet Count 181 K/mcL (140-400); Red Blood Count 3.83 M/mcL (4.19-5.50); Red Cell Distribution Width 14.5 % (11.5-14.5); Segmented Neutrophils % 73.6 %
[2018-08-12 02:00] LABS: INR 2.1; Prothrombin Time 23.9 Seconds (9.4-12.1)
[2018-08-12 02:10] LABS: BUN/Creatinine Ratio 23 (6-26); Blood Urea Nitrogen 22 mg/dL (6-20); Calcium 8.5 mg/dL (8.6-10.3); Carbon Dioxide 30 mEq/L (23-29); Chloride 96 mEq/L (98-107); Glucose 333 mg/dL (70-105); Osmolality,Calculated 290 (280-300); Potassium 4.3 mEq/L (3.5-5.1); Sodium 132 mEq/L (136-145); eGFR For Non-African Americans > 60 (> 60)
--- NOTE | 2018-08-12 02:26 | Event Note ---
Date of Encounter: 08/11/18 Time of Encounter: 23:53 Alerted by pts. nurse that pts. lactic acid was 4.2. Pt. has no documented hx of CHF but currently has 2+ pitting edema in LEs. 1L bolus of 0.9 NS ordered w/repeat lactic acid ordered for 04:00. WBC 15.5 and lactic 4.2, however no other sepsis criteria (HR 70, RR 17, BP 154/70, SpO2 97% on 2L via NC). Will await repeat lactic at 04:00. Pt. currently on PO doxycycline and fluconazole. Nurse instructed to continue monitoring the pt. very closely and alert me immediately of any adverse changes.
[2018-08-12 03:48] LABS: Platelet Estimate Normal (Normal)
[2018-08-12] MEDS: Acetylcysteine 10% 2 ML INHSOL IH SCH ×6 (03:49→21:22)
[2018-08-12] MEDS: Ipratropium/Albuterol Neb 3 ML IH SCH ×4 (04:09→16:34)
[2018-08-12] MEDS: MethylPREDNISolone 40 MG/ML VIAL IVP SCH ×2 (06:26→17:21)
[2018-08-12] MEDS: ALPRAZolam 1 MG TABLET PO PRN ×2 (06:31→17:25)
[2018-08-12] MEDS: Budesonide/Formoterol 160/4.5 1 PUFF INH IH SCH ×2 (07:33→21:22)
[2018-08-12] MEDS: Fluconazole 100 MG TABLET PO SCH (09:01)
[2018-08-12] MEDS: Gabapentin 300 MG CAPSULE PO SCH ×3 (09:01→19:29)
[2018-08-12] MEDS: Doxycycline 100 MG CAPSULE PO SCH ×2 (09:01→19:29)
--- NOTE | 2018-08-12 10:41 | Internal Med Progress Note ---
Hospitalist Progress Note - Encounter Date of Encounter: 08/12/18 Time of Encounter: 08:15 - Subjective Interval History: States that he continues to feel miserable with persistent coughing and dyspnea on exertion. Had lactic acid checked yesterday due to "sepsis risk" and was noted to be elevated at 4.2; responded to IVF. No fever overnight - Exam Vitals: Temp Pulse Resp BP Pulse Ox 97.7 F 94 20 111/70 94 08/12/18 08:49 08/12/18 08:49 08/12/18 08:49 08/12/18 08:49 08/12/18 09:12 Exam: General: Patient is alert, oriented, continues to be distressed and fru stratedwith his condition Respiratory: scattered wheezes bilaterally with improving aeration Cardiovascular: Regular rate and rhythm. s1 and s2 Abdomen: Soft, nontender musculoskeletal: Spontaneously moving all extremities. no edema, no calf tenderness Skin: warm, dry, intact. Neuro: Alert and oriented x3. No focal deficit - Assessment and Plan (1) Acute and chronic respiratory failure with hypoxia Current Visit: Yes Status: Acute Assessment and Plan: Secondary to HAP (recently admitted in 06/2018), CT showed LLL infiltrate Although there was a initial suspicion for aspiration PNA, pt did not show any evidence of aspiration on speech evaluation nor showed any sequealae of aspiration on EGD. Therefore, it appears to be more related to hospital acquired pneumonia with his recent admissions. MRSA swab -ve, strep/legionella -ve sputum culture with many epithelial cells underwent bronchoscopy 08/07: bilateral infiltrates BAL from RUL, RML, and LLL all showed normal respi gemma completed cefepime on 08/10 (D7). appreciate pulm input, Doxycycline 100mg BID added (D3). Aim for a total of 7 days for atypical coverage. Continue steroid and Scheduled bronchodilators had worsening leukoctosis yesterday with lactic acidosis, slightly improved today. Will continue to monitor while holding lasix (2) Sepsis Current Visit: Yes Status: Acute Assessment and Plan: due to HAP, blood culture NGTD had lactic acid elevation yesterday which improved with 1L fluid hold off on lasix today and monitor lactic acid tomorrow (3) Esophageal candidiasis Current Visit: Yes Status: Acute Assessment and Plan: noted on EGD 08/07 cytology -ve for malignant cells with fungal organisms identified on esophagus b rushing diflucan for 1 week, D5 today (4) HAP (hospital-acquired pneumonia) Current Visit: Yes Status: Acute Assessment and Plan: as above EGD was done in conjunction with bronchoscopy on 08/07 for any evidence of aspiration, showed esophageal plaques suspicious for candidiasis Diflucan for 1 week (5) Acute exacerbation of chronic obstructive airways disease Current Visit: Yes Status: Acute Assessment and Plan: mx per respiratory failure Appreciate Pulm input, will transition to PO steroid tomorrow and prescribe a prolonged taper over the next 6 weeks starting at 40 mg and decreasing by 10 mg weekly (6) History of pulmonary embolism Current Visit: No Status: Chronic Assessment and Plan: On Coumadin at home which was on hold due to bronchoscopy INR therapeutic today. Dc hep gtt pharmacy to assist with Coumadin dosing (7) Factor V Leiden Current Visit: No Status: Chronic (8) Subtherapeutic international normalized ratio (INR) Current Visit: Yes Status: Resolved Assessment and Plan: therapeutic today (9) Obesity (BMI 30-39.9) Current Visit: No Status: Chronic Assessment and Plan: Lifestyle modifications emphasized Outpatient sleep study DVT Prophylaxis: INR therapeutic - Time Spent with Patient Total time spent is greater than 50% in coordination of care (as documented) at patient's floor/unit and/or counseling patient: 25 - 35 minutes Plan of Care Discussed with: patient (discussed with RN) Internal Medicine: Result - Labs CBC & Chem 7: 08/12/18 01:20 08/12/18 01:20 Labs: Short CBC 08/12/18 Range/Units 01:20 WBC 12.9 H (4.3-11.1) K/mcL Hgb 11.7 L (12.9-16.9) g/dL Hct 35.7 L (37.5-50.1) % Plt Count 181 (140-400) K/mcL Neutrophils # 9.5 H (1.6-8.9) K/mcL BMP 08/11/18 08/12/18 13:18 01:20 Sodium 132 L Potassium 5.8 H 4.3 D Chloride 96 L Carbon Dioxide 30 H BUN 22 H Creatinine 0.96 Glucose 333 H Calcium 8.5 L - ABG Interpretation ABG results: PT/INR, D-dimer PT 23.9 Seconds (9.4-12.1) H D 08/12/18 01:20 Consult Discharge Plan - Plan Referrals: Srinivas Pearce DO [Primary Care Provider] - (2) Sepsis Qualifiers: Sepsis type: sepsis due to unspecified organism Qualified Code(s): A41.9 - Sepsis, unspecified organism
[2018-08-12] MEDS: Lisinopril 20 MG TABLET PO SCH (17:21)
[2018-08-12] MEDS ORDERED: *HR* Warfarin 5 MG TABLET PO ONE (18:00)
[2018-08-12] MEDS: Levalbuterol Neb 1.25 MG/3 ML IH PRN (21:22)
[2018-08-13] MEDS: *HR* OxyCODONE/APAP 7.5/325 TABLET PO PRN ×5 (03:01→20:29)
[2018-08-13] MEDS: Acetylcysteine 10% 2 ML INHSOL IH SCH ×6 (04:11→23:57)
[2018-08-13] MEDS: Levalbuterol Neb 1.25 MG/3 ML IH PRN ×2 (04:11→10:43)
[2018-08-13] MEDS: ALPRAZolam 1 MG TABLET PO PRN ×2 (05:51→20:29)
[2018-08-13 06:13] LABS: Hemoglobin 12.9 g/dL (12.9-16.9); Mean Corpuscular HGB Conc 33.1 g/dL (31.6-35.5); Mean Corpuscular Hemoglobin 30.7 pg (28.0-33.3); Mean Corpuscular Volume 92.9 fL (83.0-100.0); Mean Platelet Volume 9.1 fL (9.4-12.4); Nucleated Red Blood Cells 0.2 /100 WBC (0); Platelet Count 191 K/mcL (140-400); Red Cell Distribution Width 14.6 % (11.5-14.5)
[2018-08-13 06:23] LABS: INR 2.3; Prothrombin Time 25.9 Seconds (9.4-12.1)
[2018-08-13 06:31] LABS: BUN/Creatinine Ratio 28 (6-26); Blood Urea Nitrogen 25 mg/dL (6-20); Calcium 9.1 mg/dL (8.6-10.3); Carbon Dioxide 30 mEq/L (23-29); Chloride 97 mEq/L (98-107); Glucose 220 mg/dL (70-105); Osmolality,Calculated 291 (280-300); Sodium 135 mEq/L (136-145); eGFR For Non-African Americans > 60 (> 60)
[2018-08-13 07:04] LABS: Monocytes # 1.1 K/mcL (0.0-1.3); Neutrophils # 14.7 K/mcL (1.6-8.9)
[2018-08-13 07:05] LABS: Platelet Estimate Normal (Normal); Reactive Lymphocytes Present (Not Present)
[2018-08-13] MEDS: Fluconazole 100 MG TABLET PO SCH (07:38)
[2018-08-13] MEDS: Gabapentin 300 MG CAPSULE PO SCH ×3 (07:38→20:29)
[2018-08-13] MEDS: Doxycycline 100 MG CAPSULE PO SCH ×2 (07:38→20:29)
[2018-08-13] MEDS: predniSONE 20 MG TABLET PO SCH (07:38)
[2018-08-13] MEDS ORDERED: Isovue-370 500 ML BOTTLE IVP ONE (08:59)
[2018-08-13] MEDS ORDERED: 0.9 % Sodium Chloride 1,000 ML IVC ONE ×2 (09:01→15:42)
[2018-08-13] MEDS: Budesonide/Formoterol 160/4.5 1 PUFF INH IH SCH ×2 (10:43→20:20)
--- NOTE | 2018-08-13 11:20 | Internal Med Progress Note ---
Hospitalist Progress Note - Encounter Date of Encounter: 08/13/18 Time of Encounter: 10:45 - Subjective Interval History: Patient complains of right ear pain radiating down his R face to jaw. No hearing loss, ear discharges, tinnitus, or vertigo. Patient did not have fever but is noted to have worsening leukocytosis and lactic acid elevation - Exam Vitals: Temp Pulse Resp BP Pulse Ox 98.2 F 68 19 153/83 95 08/13/18 07:34 08/13/18 07:34 08/13/18 10:45 08/13/18 07:34 08/13/18 10:45 Exam: General: Patient is alert, oriented, not in respiratory distress but upset with R facial discomfort HEENT: NO obvious redness appreciated, not warm to touch. No fluctuance or discharges noted. R EAC without any exudates, ear drum appears to be intact Respiratory: scattered wheezes bilaterally with improving aeration Cardiovascular: Regular rate and rhythm. s1 and s2 Abdomen: Soft, nontender musculoskeletal: Spontaneously moving all extremities. no edema, no calf ten derness Skin: warm, dry, intact. Neuro: Alert and oriented x3. No focal deficit - Assessment and Plan (1) Acute and chronic respiratory failure with hypoxia Current Visit: Yes Status: Acute Assessment and Plan: Secondary to HAP (recently admitted in 06/2018), CT showed LLL infiltrate Although there was a initial suspicion for aspiration PNA, pt did not show any evidence of aspiration on speech evaluation nor showed any sequealae of aspiration on EGD. Therefore, it appears to be more related to hospital acquired pneumonia with his recent admissions. MRSA swab -ve, strep/legionella -ve sputum culture with many epithelial cells underwent bronchoscopy 08/07: bilateral infiltrates BAL from RUL, RML, and LLL all showed normal respi gemma completed cefepime on 08/10 (D7). appreciate pulm input, Doxycycline 100mg BID added (D4). Aim for a total of 7 days for atypical coverage. Continue steroid and Scheduled bronchodilators continues to have worsening leukoctosis and persistent with lactic acidosis. Will hold lasix and monitor after bolus of fluid given his persistent cough, will switch lisinopril to norvasc (2) Sepsis Current Visit: Yes Status: Acute Assessment and Plan: due to HAP, blood culture NGTD has worsening leukocytosis and lactic acid elevation. Initially downtrended with IVF but 3.3 again this AM 1L of fluid bolus and repeat continue to hold off on lasix pt today complains of R face/middle ear discomfort. Exam is unremarkable. Pt is however immunosuppressed with chronic steroids (and has esophageal kam as a result) hence will check for deep-seated infection in middle ear as well as face with CT. repeat blood cultures (3) Esophageal candidiasis Current Visit: Yes Status: Acute Assessment and Plan: noted on EGD 08/07 cytology -ve for malignant cells with fungal organisms identified on esophagus brushing diflucan for 1 week, D6 today (4) HAP (hospital-acquired pneumonia) Current Visit: Yes Status: Acute Assessment and Plan: as above EGD was done in conjunction with bronchoscopy on 08/07 for any evidence of aspiration, showed esophageal plaques suspicious for candidiasis Diflucan for 1 week (5) Acute exacerbation of chronic obstructive airways disease Current Visit: Yes Status: Acute Assessment and Plan: mx per respiratory failure Appreciate Pulm input, started PO prednisone 40mg today, a prolonged taper over the next 6 weeks decreasing by 10 mg weekly (6) History of pulmonary embolism Current Visit: No Status: Chronic Assessment and Plan: On Coumadin at home which was on hold due to bronchoscopy INR now therapeutic, pharmacy to assist with Coumadin dosing (7) Factor V Leiden Current Visit: No Status: Chronic Assessment and Plan: anti-coagulation as above (8) Subtherapeutic international normalized ratio (INR) Current Visit: Yes Status: Resolved Assessment and Plan: therapeutic x 2 days (9) Obesity (BMI 30-39.9) Current Visit: No Status: Chronic Assessment and Plan: Lifestyle modifications emphasized Outpatient sleep study DVT Prophylaxis: INR therapeutic - Time Spent with Patient Total time spent is greater than 50% in coordination of care (as documented) at patient's floor/unit and/or counseling patient: Greater than 35 minutes Plan of Care Discussed with: patient (discussed with RN) Internal Medicine: Result - Labs CBC & Chem 7: 08/13/18 05:43 08/13/18 05:43 Labs: Short CBC 08/13/18 Range/Units 05:43 WBC 18.9 H (4.3-11.1) K/mcL Hgb 12.9 (12.9-16.9) g/dL Hct 39.0 (37.5-50.1) % Plt Count 191 (140-400) K/mcL Neutrophils # 14.7 H (1.6-8.9) K/mcL BMP 08/13/18 05:43 Sodium 135 L Potassium 5.0 Chloride 97 L Carbon Dioxide 30 H BUN 25 H Creatinine 0.90 Glucose 220 H Calcium 9.1 - ABG Interpretation ABG results: PT/INR, D-dimer PT 25.9 Seconds (9.4-12.1) H 08/13/18 05:43 Consult Discharge Plan - Plan Referrals: Srinivas Pearce DO [Primary Care Provider] - (2) Sepsis Qualifiers: Sepsis type: sepsis due to unspecified organism Qualified Code(s): A41.9 - Sepsis, unspecified organism
[2018-08-13] MEDS: amLODIPine 5 MG TABLET PO SCH (11:38)
[2018-08-13] MEDS ORDERED: 0.9 % Sodium Chloride 1,000 ML ONE (15:52)
[2018-08-13] MEDS: Ipratropium/Albuterol Neb 3 ML IH SCH ×4 (15:52→23:57)
[2018-08-13] MEDS ORDERED: *HR* Warfarin 5 MG TABLET PO ONE (18:00)
[2018-08-14] MEDS: *HR* OxyCODONE/APAP 7.5/325 TABLET PO PRN ×6 (00:43→22:55)
[2018-08-14] MEDS: ALPRAZolam 1 MG TABLET PO PRN ×2 (03:56→18:37)
[2018-08-14] MEDS: Acetylcysteine 10% 2 ML INHSOL IH SCH ×5 (04:10→20:00)
[2018-08-14] MEDS: Ipratropium/Albuterol Neb 3 ML IH SCH ×5 (04:10→20:00)
[2018-08-14] MEDS: Budesonide/Formoterol 160/4.5 1 PUFF INH IH SCH ×2 (07:41→20:00)
[2018-08-14] MEDS: Doxycycline 100 MG CAPSULE PO SCH ×2 (07:53→21:52)
[2018-08-14] MEDS: predniSONE 20 MG TABLET PO SCH (07:53)
[2018-08-14] MEDS: Gabapentin 300 MG CAPSULE PO SCH ×3 (07:53→21:53)
[2018-08-14] MEDS: amLODIPine 5 MG TABLET PO SCH (07:53)
[2018-08-14] MEDS: Fluconazole 100 MG TABLET PO SCH (07:54)
[2018-08-14 09:48] LABS: Hematocrit 38.7 % (37.5-50.1); Hemoglobin 12.7 g/dL (12.9-16.9); Mean Corpuscular HGB Conc 32.8 g/dL (31.6-35.5); Mean Corpuscular Hemoglobin 30.8 pg (28.0-33.3); Mean Corpuscular Volume 93.7 fL (83.0-100.0); Nucleated Red Blood Cells 0.3 /100 WBC (0); Platelet Count 161 K/mcL (140-400); Red Blood Count 4.13 M/mcL (4.19-5.50); Red Cell Distribution Width 14.9 % (11.5-14.5)
[2018-08-14 09:57] LABS: INR 2.9; Prothrombin Time 32.8 Seconds (9.4-12.1)
[2018-08-14 10:00] LABS: BUN/Creatinine Ratio 21 (6-26); Blood Urea Nitrogen 20 mg/dL (6-20); Calcium 9.1 mg/dL (8.6-10.3); Carbon Dioxide 28 mEq/L (23-29); Chloride 100 mEq/L (98-107); Glucose 198 mg/dL (70-105); Osmolality,Calculated 284 (280-300); Sodium 133 mEq/L (136-145); eGFR For Non-African Americans > 60 (> 60)
[2018-08-14 10:36] LABS: Lymphocytes # 1.6 K/mcL (0.6-4.6); Monocytes # 0.6 K/mcL (0.0-1.3); Neutrophils # 13.5 K/mcL (1.6-8.9); Platelet Estimate Normal (Normal)
--- NOTE | 2018-08-14 13:31 | Internal Med Progress Note ---
Hospitalist Progress Note - Encounter Date of Encounter: 08/14/18 Time of Encounter: 11:15 - Subjective Interval History: Continues to state that he feels unwell with persistent coughing. Againg, objectively, no episodes of fever and good saturation on 2L O2. Still complains of R sided facial pain - Exam Vitals: Temp Pulse Resp BP Pulse Ox 98.4 F 77 18 124/77 92 08/14/18 11:35 08/14/18 11:35 08/14/18 11:35 08/14/18 11:35 08/14/18 11:35 Exam: General: Patient is alert, oriented, appears uncomfortable Respiratory: scattered wheezes bilaterally with improving aeration Cardiovascular: Regular rate and rhythm. s1 and s2 Abdomen: Soft, nontender musculoskeletal: Spontaneously moving all extremities. no edema, no calf tenderness Skin: warm, dry, intact. Neuro: Alert and oriented x3. No focal deficit - Assessment and Plan (1) Acute and chronic respiratory failure with hypoxia Current Visit: Yes Status: Acute Assessment and Plan: Secondary to HAP (recently admitted in 06/2018), CT showed LLL infiltrate Although there was a initial suspicion for aspiration PNA, pt did not show any evidence of aspiration on speech evaluation nor showed any sequealae of aspiration on EGD. Therefore, it appears to be more related to hospital acquired pneumonia with his recent admissions. MRSA swab -ve, strep/legionella -ve sputum culture with many epithelial cells underwent bronchoscopy 08/07: bilateral infiltrates BAL from RUL, RML, and LLL all showed normal respi gemma completed cefepime on 08/10 (D7). appreciate pulm input, Doxycycline 100mg BID added (D5). Aim for a total of 7 days for atypical coverage. Continue steroid and Scheduled bronchodilators pt however continues to feel unwell with worsening leukoctosis and persistent with lactic acidosis. Both lactic acid and WBC slightly better today Will continue to hold lasix and monitor lactate given his persistent cough, will switch lisinopril to norvasc discussed with Dr. Riggins who will kindly evaluate the pt again. appreciate input (2) Sepsis Current Visit: Yes Status: Acute Assessment and Plan: due to HAP, blood culture NGTD has worsening leukocytosis and lactic acid elevation. Mildly improved continue to hold off on lasix pt complained of R face/middle ear discomfort. Exam is unremarkable and CT also -ve repeat blood cultures 08/13 pending (3) Esophageal candidiasis Current Visit: Yes Status: Acute Assessment and Plan: noted on EGD 08/07 cytology -ve for malignant cells with fungal organisms identified on esophagus brushing diflucan for 1 week, D7 today (4) HAP (hospital-acquired pneumonia) Current Visit: Yes Status: Acute Assessment and Plan: as above EGD was done in conjunction with bronchoscopy on 08/07 for any evidence of aspiration, showed esophageal plaques suspicious for candidiasis Diflucan for 1 week, complete today (5) Acute exacerbation of chronic obstructive airways disease Current Visit: Yes Status: Acute Assessment and Plan: mx per respiratory failure Appreciate Pulm input, started PO prednisone 40mg yesterday, a prolonged taper over the next 6 weeks decreasing by 10 mg weekly (6) History of pulmonary embolism Current Visit: No Status: Chronic Assessment and Plan: On Coumadin at home which was on hold due to bronchoscopy INR now therapeutic, pharmacy to assist with Coumadin dosing (7) Factor V Leiden Current Visit: No Status: Chronic (8) Subtherapeutic international normalized ratio (INR) Current Visit: Yes Status: Resolved Assessment and Plan: therapeutic x 3 days (9) Obesity (BMI 30-39.9) Current Visit: No Status: Chronic Assessment and Plan: Lifestyle modifications emphasized Outpatient sleep study DVT Prophylaxis: INR therapeutic - Time Spent with Patient Total time spent is greater than 50% in coordination of care (as documented) at patient's floor/unit and/or counseling patient: 25 - 35 minutes Plan of Care Discussed with: patient (discussed with pulmonology) Internal Medicine: Result - Labs CBC & Chem 7: 08/14/18 09:29 08/14/18 09:29 Labs: Short CBC 08/14/18 Range/Units 09:29 WBC 15.7 H (4.3-11.1) K/mcL Hgb 12.7 L (12.9-16.9) g/dL Hct 38.7 (37.5-50.1) % Plt Count 161 (140-400) K/mcL Neutrophils # 13.5 H (1.6-8.9) K/mcL BMP 08/14/18 09:29 Sodium 133 L Potassium 5.0 Chloride 100 Carbon Dioxide 28 BUN 20 Creatinine 0.95 Glucose 198 H Calcium 9.1 - ABG Interpretation ABG results: PT/INR, D-dimer PT 32.8 Seconds (9.4-12.1) H 08/14/18 09:29 - Impressions Impressions Face CT 08/13/18 08:59 IMPRESSION: No acute abnormality of the face. D/ / Bo Mensah MD / Bo Mensah MD Interpreting Provider: Bo Mensah MD Consult Discharge Plan - Plan Referrals: Srinivas Pearce DO [Primary Care Provider] - (2) Sepsis Qualifiers: Sepsis type: sepsis due to unspecified organism Qualified Code(s): A41.9 - Sepsis, unspecified organism
--- NOTE | 2018-08-14 16:40 | Pulmonology Progress Note ---
Date of Encounter: 08/14/18 Time of Encounter: 14:00 Assessment and Plan (1) Acute exacerbation of chronic obstructive airways disease Current Visit: Yes Status: Chronic I have reviewed x-ray result and patient was very comfortable when I saw him when he was asleep and then when he was awake he started to have more symptoms and he stated that he is not feeling any better. Patient has been seen by our pulmonary group and he had bronchoscopy, unfortunately patient continued to have symptoms which is mainly subjective and I have discussed with primary team that a second opinion would be reasonable and that can be done in a different facility and they have discussed this with the patient also is looking forward for that since he is not feeling any better and he stated that he will come to the hospital if his discharge again. Please call for any questions. He is being treated appropriately with bronchodilators and systemic steroid for the COPD exacerbation. Unfortunately sometimes steroid resistant could have a prolonged recovery from Bronchospasm and that might be the case for this patient. Subjective Principal diagnosis: COPD exacerbation with recurrent pneumonia Interval history: Should not stated that he is not feeling any better and he continued to have dyspnea and wheezing and he has multiple hospitalization. Objective PUL Vital signs: Last Vital Signs Temp 97.8 F 08/14/18 15:57 Pulse 85 08/14/18 15:57 Resp 16 08/14/18 15:57 BP 127/75 08/14/18 15:57 Pulse Ox 98 08/14/18 15:57 General appearance: no acute distress Eyes: nonicteric ENT: oropharynx moist Mallampati (class): 3 Neck: supple Effort: normal Auscultation: bilateral: wheezes Percussion: bilateral: not dull Cardiovascular: regular rate and rhythm Gastrointestinal: normoactive bowel sounds, non-distended Extremities: no cyanosis normal mental status, non-focal exam mood appropriate Results - Laboratory Findings CBC and BMP: 08/14/18 09:29 08/14/18 09:29 PT/INR, D-dimer PT 32.8 Seconds (9.4-12.1) H 08/14/18 09:29 Abnormal lab findings: Abnormal lab results WBC 15.7 K/mcL (4.3-11.1) H 08/14/18 09:29 RBC 4.13 M/mcL (4.19-5.50) L 08/14/18 09:29 Hgb 12.7 g/dL (12.9-16.9) L 08/14/18 09:29 Hct 35.7 % (37.5-50.1) L 08/12/18 01:20 RDW 14.9 % (11.5-14.5) H 08/14/18 09:29 MPV 9.0 fL (9.4-12.4) L 08/14/18 09:29 Immature Gran % 11.4 % (0-4) H 08/12/18 01:20 2.0 % (0) H 08/11/18 05:23 13.5 K/mcL (1.6-8.9) H 08/14/18 09:29 2.2 K/mcL (0.0-1.3) H 08/03/18 13:34 Nucleated RBCs/100 WBC 0.3 /100 WBC (0) H 08/14/18 09:29 Present (Not Present) A 08/13/18 05:43 PT 32.8 Seconds (9.4-12.1) H 08/14/18 09:29 APTT 42.1 Seconds (26.0-36.0) H 08/07/18 14:44 Heparin Anti-Xa, Unfract 0.12 IU/mL (0.30-0.70) L 08/12/18 11:27 Sodium 133 mEq/L (136-145) L 08/14/18 09:29 Potassium 5.8 mEq/L (3.5-5.1) H 08/11/18 13:18 Chloride 97 mEq/L (98-107) L 08/13/18 05:43 Carbon Dioxide 30 mEq/L (23-29) H 08/13/18 05:43 BUN 25 mg/dL (6-20) H 08/13/18 05:43 28 (6-26) H 08/13/18 05:43 Glucose 198 mg/dL (70-105) H 08/14/18 09:29 POC Glucose 189 mg/dL (70-99) H 08/12/18 11:10 Lactic Acid 3.5 mmol/L (0.5-2.2) H 08/14/18 13:36 Calcium 8.5 mg/dL (8.6-10.3) L 08/12/18 01:20 Fluid Appearance Cloudy (Clear) A 08/07/18 18:34 Fluid Appearance Cloudy (Clear) A 08/07/18 18:34 Fluid Appearance Hazy (Clear) A 08/07/18 18:34 Herpes Simplex DNA PCR DETECTED A 08/07/18 18:34 Herpes Simplex DNA PCR DETECTED A 08/07/18 18:34 Herpes Simplex DNA PCR DETECTED A 08/07/18 18:34 - Microbiology Findings Microbiology Findings: Microbiology, Last 48 Hours 08/13/18 10:34 Blood Culture - Preliminary Peripheral Venipuncture Culture is incubating and being continuously monitored for growth. Final report to follow. 08/13/18 10:34 Blood Culture - Preliminary Peripheral Venipuncture Culture is incubating and being continuously monitored for growth. Final report to follow. - Diagnostic Findings CT scan - chest: report reviewed, image reviewed - Clinical Findings Intake & Output: Intake & Output 08/14/18 08/14/18 08/14/18 07:59 15:59 23:59 Intake Total 240 / 1920 1680 / 1920 Output Total 0 / 0 0 / 0 Balance 240 / 1920 1680 / 1920 Weight 133 kg Consult Discharge Plan - Plan Referrals: Srinivas Pearce DO [Primary Care Provider] -
[2018-08-14] MEDS: tiZANidine 4 MG TABLET PO PRN (22:55)
--- NOTE | 2018-08-14 23:03 | Electrocardiograph Report ---
[place] [id number] Test Date: 2018-08-13 Pat Name: Mason Oliva Department: 112 Room: 2A Gender: M Sales Associate: : [id number] Requested By: Benoit Enriquez Order Number: [id number] Reading MD: Lisandra Earl Measurements Intervals [place] Rate: 95 P: 32 IA: 144 QRS: -67 QRSD: 76 T: 29 QT: 322 QTc: 374 Interpretive Statements SINUS RHYTHM MARKED LEFT AXIS DEVIATION LOW QRS VOLTAGE IN EXTREMITY LEADS Electronically Signed On 08-14-2018 23:02:14 EDT by Lisandra Earl
[2018-08-15] MEDS: *HR* OxyCODONE/APAP 7.5/325 TABLET PO PRN ×3 (03:06→14:11)
[2018-08-15] MEDS: Acetylcysteine 10% 2 ML INHSOL IH SCH ×4 (03:40→11:21)
[2018-08-15] MEDS: Ipratropium/Albuterol Neb 3 ML IH SCH ×4 (03:40→11:21)
[2018-08-15] MEDS: ALPRAZolam 1 MG TABLET PO PRN ×2 (06:47→15:18)
[2018-08-15] MEDS: Budesonide/Formoterol 160/4.5 1 PUFF INH IH SCH (07:47)
[2018-08-15] MEDS ORDERED: Benzocaine 20% 12 APPL GEL..GRAM. TP PRN (08:33)
[2018-08-15] MEDS: predniSONE 20 MG TABLET PO SCH (08:43)
[2018-08-15] MEDS: amLODIPine 5 MG TABLET PO SCH (08:43)
[2018-08-15] MEDS: Gabapentin 300 MG CAPSULE PO SCH ×2 (08:43→15:18)
[2018-08-15] MEDS: Doxycycline 100 MG CAPSULE PO SCH (08:43)
[2018-08-15] MEDS ORDERED: Cortisporin *EAR*Susp 10 ML BOTTLE RIGHT EAR SCH (09:00)
[2018-08-15] MEDS ORDERED: Lidocaine TOPICAL Soln 50 ML BOTTLE TP PRN (10:44)
[2018-08-15] MEDS: Chloraseptic Spray 177 ML BOTTLE MM PRN ×2 (10:55→14:05)
[2018-08-15 11:35] VITALS: BP 114/68
--- NOTE | 2018-08-15 14:41 | Discharge Summary ---
Orders not resulted at time of discharge: Pending orders 08/07/18 18:34 AFB Culture, Respiratory [TB] Routine AFB Culture, Respiratory [TB] Routine AFB Culture, Respiratory [TB] Routine AFB Smear [TB] Routine AFB Smear [TB] Routine AFB Smear [TB] Routine Fungal Culture [MYC] Routine Fungal Culture [MYC] Routine Fungal Culture [MYC] Routine 08/13/18 10:34 Culture,Blood [BC] Stat 08/15/18 04:00 BMP [Basic Metabolic Panel] AM 0400 CBC [Complete Blood Count] [HEME] AM 0400 PT/INR [Prothrombin Time INR] [COAG] AM 0400 08/16/18 04:00 PT/INR [Prothrombin Time INR] [COAG] AM 0400 08/17/18 04:00 PT/INR [Prothrombin Time INR] [COAG] AM 0400 08/18/18 04:00 PT/INR [Prothrombin Time INR] [COAG] AM 0400 Date of Encounter: 08/15/18 Time of Encounter: 14:38 - Discharge Diagnosis (1) Acute exacerbation of chronic obstructive airways disease Priority: Primary Status: Chronic (2) History of pulmonary embolism Priority: Secondary Status: Chronic (3) Obesity (BMI 30-39.9) Priority: Secondary Status: Chronic (4) Subtherapeutic international normalized ratio (INR) Priority: Secondary Status: Resolved (5) Factor V Leiden Priority: Secondary Status: Chronic (6) Acute and chronic respiratory failure with hypoxia Priority: Primary Status: Acute (7) Sepsis Priority: Secondary Status: Acute Qualifiers: Sepsis type: sepsis due to unspecified organism Qualified Code(s): A41.9 - Sepsis, unspecified organism (8) HAP (hospital-acquired pneumonia) Priority: Primary Status: Acute (9) Esophageal candidiasis Priority: Secondary Status: Acute Hospital course: Mr. Oliva is a 58 year old male with history of COPD presented with shortness of breath and cough. He was diagnosed with pneumonia and COPD exacerbation. Patient was treated with multiple antibiotics however symptomatically stated that he was not improving. He was evaluated by pulmonology and underwent bronchoscopy and cultures were negative. On the day of discharge the patient states that he felt slightly better. He also complained of right-sided facial pain that was treated symptomatically and this improved his pain. CT of the area was negative. Patient will be discharged home in stable condition. - Time Spent with Patient Total time spent providing and/or coordinating discharge services: Time spent: Greater than 30 minutes (45 minutes) - Discharge Medications Prescriptions: New Acetylcysteine 10% 2 ml IH [id number] #120 inhsol Chloraseptic [place] [Chloraseptic] 2 spray MM QID PRN bottle PRN Reason: Sore Throat Doxycycline 100 mg PO BID #8 capsule Benzocaine 20% [Orajel] 1 appl TP TID PRN gel..gram. PRN Reason: Mouth Sore Pain OxyCODONE/APAP 7.5/325 [Percocet 7.5/325 MG] 1 each PO Q6HR PRN 3 Days #10 tablet PRN Reason: Pain predniSONE [PredniSONE] 40 mg PO DAILY #30 tablet Budesonide/Formoterol 160/4.5 [Symbicort 160/4.5] 2 puff IH BIDR #1 inh Continued Gabapentin [Neurontin] 300 mg PO TID DULoxetine [Cymbalta] 30 mg PO HS Atorvastatin [Lipitor] 10 mg PO HS Lisinopril [Zestril] 20 mg PO 1800 Metoprolol [Lopressor] 12.5 mg PO BID tablet Tizanidine HCl [Zanaflex] 4 mg PO TID PRN #10 capsule PRN Reason: Muscle Spasm Furosemide [Lasix] 40 mg PO BID #60 tablet ALPRAZolam [Xanax 1 MG Tablet] 1 mg PO BID PRN PRN Reason: Anxiety Warfarin Sodium 7.5 mg PO MOTHSA Warfarin Sodium 5 mg PO SUTUWEFR Albuterol Sulfate [Albuterol Inhaler] 2 puff IH Q4HR PRN PRN Reason: Shortness Of Breath Levalbuterol Neb [Xopenex Neb] 1.25 mg IH Q6H PRN PRN Reason: Shortness Of Breath Ipratropium Neb [Atrovent Neb] 0.5 mg IH Q6HR PRN PRN Reason: Shortness Of Breath Home Medications: Gabapentin [Neurontin] 300 mg PO TID 03/27/15 [History] DULoxetine [Cymbalta] 30 mg PO HS 02/27/17 [History] Atorvastatin [Lipitor] 10 mg PO HS 03/23/17 [History] Lisinopril [Zestril] 20 mg PO 1800 03/23/17 [History] Metoprolol [Lopressor] 12.5 mg PO BID tablet 04/04/17 [Rx] Tizanidine HCl [Zanaflex] 4 mg PO TID PRN #10 capsule 04/04/17 [Rx] Furosemide [Lasix] 40 mg PO BID #60 tablet 04/05/17 [Rx] ALPRAZolam [Xanax 1 MG Tablet] 1 mg PO BID PRN 04/17/17 [History] Albuterol Sulfate [Albuterol Inhaler] 2 puff IH Q4HR PRN 08/03/18 [History] Ipratropium Neb [Atrovent Neb] 0.5 mg IH Q6HR PRN 08/03/18 [History] Levalbuterol Neb [Xopenex Neb] 1.25 mg IH Q6H PRN 08/03/18 [History] Warfarin Sodium 5 mg PO SUTUWEFR 08/03/18 [History] Warfarin Sodium 7.5 mg PO MOTHSA 08/03/18 [History] Acetylcysteine 10% 2 ml IH [id number] #120 inhsol 08/15/18 [Rx] Benzocaine 20% [Orajel] 1 appl TP TID PRN gel..gram. 08/15/18 [Rx] Budesonide/Formoterol 160/4.5 [Symbicort 160/4.5] 2 puff IH BIDR #1 inh 08/15/18 [Rx] Chloraseptic [place] [Chloraseptic] 2 spray MM QID PRN bottle 08/15/18 [Rx] Doxycycline 100 mg PO BID #8 capsule 08/15/18 [Rx] OxyCODONE/APAP 7.5/325 [Percocet 7.5/325 MG] 1 each PO Q6HR PRN 3 Days #10 tablet 08/15/18 [Rx] predniSONE [PredniSONE] 40 mg PO DAILY #30 tablet 08/15/18 [Rx] Allergies/Adverse Reactions: Allergy/AdvReac Type Severity Reaction Status Date / Time No Known Allergies Allergy Verified 07/29/18 00:33 Date of admission: 08/03/18 16:53 Primary care physician: Srinivas Pearce DO Consults: 08/03/18 16:43 Consult to Nurse Navigator [CONS] Routine Comment: 08/05/18 10:30 Consult to Pulmonology [CONS] Routine Consulting Provider: [facility] Reason for Consult: COPD exacerbation, follows as OP Call Completed: Yes 08/05/18 11:20 Consult to Gastroenterology [CONS] Routine Consulting Provider: Rochelle Parisi Reason for Consult: as per my discussion with doctor bryan he needs EGD and bronch Call Completed: No Discharging clinician: Bo Zaidi Anticipated date of discharge: 08/15/18 - Constitutional Vitals: Temp Pulse Resp BP Pulse Ox 97.7 F 71 18 114/68 93 08/15/18 11:34 08/15/18 11:34 08/15/18 11:34 08/15/18 11:34 08/15/18 11:34 General appearance: Present: A&O X 3, pleasant, no acute distress Exam: . - Respiratory Respiratory exam: Present: decreased breath sounds. Absent: rales, respiratory distress, rhonchi, wheezes, tachypnea - Cardiovascular Cardiovascular exam: Present: RRR. Absent: gallop, rubs, systolic murmur - Patient Status Disposition: Home, Self-Care Condition: Fair Functional capacity at discharge: independent ambulation Overall status at discharge: patient is progressing back to baseline - Discharge Instructions Follow Up With: Srinivas Pearce DO [Primary Care Provider] - (1 week) Sergey Zuniga MD [Partnered Physician] - (1 week) Additional Instructions: Please follow-up with your PCP within one week. Please follow-up with your help desk supervisor within one week. Please take your antibiotic until complete. Please take prednisone until you see your help desk supervisor and directed otherwise. Please use your nebulizer 4 times a day. Please return for any new or worsening symptoms. - Diet and Activity Activity: increase activity as tolerated, wear oxygen at all times Diet: low fat, low cholesterol, low salt diet
== END 2018-08-15 15:40 | disposition home or self-care (01) | DRG 871 ==
LOC: EMEROOARM 13:02 → 2ANU 13:02 → OBSVTOIN 16:53 → SUATTDRO 16:53 → 2ANU 18:02
PROVIDERS: ADMIT Internal Medicine Nephrology; ATTEND Internal Medicine
PROC: ENDOEBX (2018-08-07 14:00)

== ENCOUNTER 2018-08-19 12:42 | Inpatient (IN) ==
[2018-08-19] MEDS ORDERED: 0.9 % Sodium Chloride 1,000 ML IVC ONE (13:38)
[2018-08-19] MEDS ORDERED: predniSONE 20 MG TABLET PO ONE (13:39)
[2018-08-19] MEDS ORDERED: Ipratropium/Albuterol Neb 3 ML IH ONE (13:39)
[2018-08-19] MEDS ORDERED: *HR* FentaNYL (PF) 100 MCG/2 ML VIAL IVP ONE (13:41)
[2018-08-19] MEDS ORDERED: Isovue-370 500 ML BOTTLE IVP ONE (13:44)
[2018-08-19] MEDS ORDERED: Piperacillin/Tazobactam 3.375 GM in 0.9 % Sodium Chloride Mini Bag 100 ML IVPB ONE (13:49)
--- NOTE | 2018-08-19 13:49 | Emergency Department Note ---
Disposition Clinical Impression: Sepsis Pneumonia Qualifiers: Pneumonia type: due to unspecified organism Laterality: unspecified laterality Lung location: unspecified part of lung Qualified Code(s): J18.9 - Pneumonia, unspecified organism Cellulitis Qualifiers: Site of cellulitis: extremity Site of cellulitis of extremity: lower extremity Laterality: left Qualified Code(s): L03.116 - Cellulitis of left lower limb Disposition: Admitted As Inpatient Condition: Fair Time of Disposition: 16:21 General Adult HPI - General Chief complaint: ED Extremity Problem,Nontraumatic Stated complaint: leg swelling painful SOB Time Seen by Provider: 08/19/18 13:20 Source: patient Mode of arrival: EMS Limitations: no limitations Nursing Notes Reviewed: Yes Vital Signs Reviewed: Yes - History of Present Illness HPI Narrative: 58-year-old male with a history of COPD, hypertension, factor V Leiden with anticoagulation presents for evaluation of left lower leg swelling and pain. Patient states he was recently hospitalized for sepsis pneumonia. Discharge couple days ago. Patient states that his breathing has not improved is still having a cough and shortness of breath. Patient's on antibiotics and aerosols and steroids. Patient noted this morning that he had a small amount a restless on the distal aspect of his left leg. States symptom then he has had swelling as well as progressing of redness up his leg. Patient reports subjective fevers. Patient denies history of diabetes. Denies any significant trauma states he was out in the ER yesterday leaving a few things and may have bumped into it with a plastic toy. Pain Scale: 10 - Related Data Home Medications Medication Instructions Recorded Confirmed Gabapentin [Neurontin] 300 mg PO TID 03/27/15 08/19/18 DULoxetine [Cymbalta] 30 mg PO HS 02/27/17 08/19/18 Atorvastatin [Lipitor] 10 mg PO HS 03/23/17 08/19/18 Lisinopril [Zestril] 20 mg PO 1800 03/23/17 08/19/18 ALPRAZolam [Xanax 1 MG Tablet] 1 mg PO BID PRN 04/17/17 08/19/18 Albuterol Sulfate [Albuterol 2 puff IH Q4HR PRN 08/03/18 08/19/18 Inhaler] Ipratropium Neb [Atrovent Neb] 0.5 mg IH Q6HR PRN 08/03/18 08/19/18 Levalbuterol Neb [Xopenex Neb] 1.25 mg IH Q6H PRN 08/03/18 08/19/18 Warfarin Sodium 5 mg PO SUTUWEFR 08/03/18 08/19/18 Warfarin Sodium 7.5 mg PO MOTHSA 08/03/18 08/19/18 Previous Rx's Medication Instructions Recorded Metoprolol [Lopressor] 12.5 mg PO BID tablet 04/04/17 Tizanidine HCl [Zanaflex] 4 mg PO TID PRN #10 capsule 04/04/17 Furosemide [Lasix] 40 mg PO BID #60 tablet 04/05/17 Acetylcysteine 10% 2 ml IH [id number] #120 inhsol 08/15/18 Benzocaine 20% [Orajel] 1 appl TP TID PRN gel..gram. 08/15/18 Budesonide/Formoterol 160/4.5 2 puff IH BIDR #1 inh 08/15/18 [Symbicort 160/4.5] Chloraseptic [place] [Chloraseptic] 2 spray MM QID PRN bottle 08/15/18 Doxycycline 100 mg PO BID #8 capsule 08/15/18 predniSONE [PredniSONE] 40 mg PO DAILY #30 tablet 08/15/18 Allergies Allergy/AdvReac Type Severity Reaction Status Date / Time No Known Allergies Allergy Verified 07/29/18 00:33 All systems ED: reviewed and negative except as stated. Constitutional: Denies: fever Cardiovascular: Denies: chest pain Respiratory: Denies: cough, dyspnea Gastrointestinal: Denies: abdominal pain, nausea, vomiting Past Medical History - Past Medical History Source: patient Medical history: Reports: COPD, DVT, hypertension, pulmonary embolus, other Surgical history: Reports: non-contributory Psychiatric history: Reports: anxiety - Social History Smoking Status: Former smoker Smokeless Tobacco Status: Yes Alcohol use: Reports: none Drug use: Reports: none Physical Exam - General Limitations: no limitations General appearance: alert, in no apparent distress - Head Head exam: atraumatic - Eye Eye exam: Present: normal appearance - ENT ENT exam: normal exam, normal oropharynx - Neck Neck exam: Present: normal inspection - Chest Chest inspection: Present: normal inspection, symmetric chest wall rise - Respiratory Respiratory exam: Present: wheezes, prolonged expiratory phase. Absent: respiratory distress - Cardiovascular Cardiovascular exam: Present: regular rate, normal rhythm, normal heart sounds - Abdominal Exam Abdominal exam: Present: soft, Non-Tender - Extremities Exam Extremities exam: Present: normal inspection, pedal edema, other (Erythema on the distal aspect of the left leg. Does appear to be blanching and nonblanching areas. Does progress proximally to his mid tib-fib) - Back Exam Back exam: Present: normal inspection - Neurological Exam Neurological exam: Present: alert, oriented X3, CN II-XII intact - Skin Skin exam: Present: warm, dry, intact, normal color Course Course Narrative: Patient seen and examined. Patient will get basic labs as well as aerosols blood cultures and antibiotics. Does have recent hospitalization. Patient's symptoms are most consistent with cellulitis and infection. Patient will likely require admission for his cellulitis. - Reevaluation(s) Reevaluation #1: Patient's chart review shows positive BAL of Mora. Also has had positive HSV of BAL. Will talk with pharmacy. After talking with pulmonary they feel that the patient's BAL of Mora is likely contaminant. However they were unaware of the HSV. Time: 14:36 Vital Signs Temperature 98.2 F 08/19/18 13:12 Pulse Rate 96 08/19/18 13:12 Respiratory Rate 18 08/19/18 13:12 Blood Pressure 154/83 08/19/18 13:12 O2 Sat by Pulse Oximetry 97 08/19/18 13:12 Temperature 98.2 F 08/19/18 13:12 Pulse Rate 96 08/19/18 13:12 Respiratory Rate 18 08/19/18 14:58 Blood Pressure 154/83 08/19/18 13:12 O2 Sat by Pulse Oximetry 97 08/19/18 14:58 Oxygen Delivery Oxygen Delivery Room Air Medical Decision Making - [facility] Narrative Medical decision making narrative: Patient presented for evaluation of shortness of breath as well as left lower leg swelling and erythema. Imaging the lower leg does reveal some evidence of cellulitis without deep space tissue infection or abscess. Also had filling defects noted which prompted an ultrasound of the lower cavity. Patient is anticoagulated with Coumadin. Patient was recently hospitalized for pneumonia. [facility] and the patient did receive a BAL. Patient still feels symptomatic with shortness of breath and a cough. Patient was treated for healthcare associated pneumonia. Results of the feet prior hospitalization reviewed. Patient was discharged with an elevated lactate. 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 Patient was started on acyclovir. Patient's ED course discussed with the events director and consult was placed. Patient had multiple CT angios of the chest concerns for PE over the past month which were negative. Patient did not get a CTA chest during this ED course given patient's prior imaging and the fact the patient has been stable on Coumadin chronically for years. - Lab Data Lab results reviewed: Yes I reviewed the patient's lab results. Result diagrams: 08/20/18 06:04 08/20/18 06:04 Lab Results 08/19/18 08/19/18 08/19/18 Range/Units 14:16 14:16 14:16 WBC 22.9 H (4.3-11.1) K/mcL RBC 4.40 (4.19-5.50) M/mcL Hgb 13.3 (12.9-16.9) g/dL Hct 41.8 (37.5-50.1) % MCV 95.0 (83.0-100.0) fL MCH 30.2 (28.0-33.3) pg MCHC 31.8 (31.6-35.5) g/dL RDW 15.2 H (11.5-14.5) % Plt Count 126 L (140-400) K/mcL MPV 9.9 (9.4-12.4) fL Immature Gran % 2.1 (0-4) % Seg Neutrophils % 83.9 % Lymphocytes % 2.3 % Monocytes % 11.5 % Eosinophils % 0.0 % Basophils % 0.2 % Neutrophils # 19.2 H (1.6-8.9) K/mcL Lymphocytes # 0.5 L (0.6-4.6) K/mcL Monocytes # 2.6 H (0.0-1.3) K/mcL Eosinophils # 0.0 (0.0-0.6) K/mcL Basophils # 0.1 (0.0-0.2) K/mcL PT 25.5 H (9.4-12.1) Seconds INR 2.3 Sodium 135 L (136-145) mEq/L Potassium 4.5 (3.5-5.1) mEq/L Chloride 98 (98-107) mEq/L Carbon Dioxide 29 (23-29) mEq/L BUN 20 (6-20) mg/dL Creatinine 0.83 (0.70-1.30) mg/dL Est GFR ( Amer) > 60 (> 60) Est GFR (Non-Af Amer) > 60 (> 60) BUN/Creatinine Ratio 24 (6-26) Glucose 177 H (70-105) mg/dL Calculated Osmolality 287 (280-300) Lactic Acid (0.5-2.2) mmol/L Calcium 9.0 (8.6-10.3) mg/dL Magnesium 2.2 (1.6-2.6) mg/dL Total Bilirubin 0.7 (0.3-1.0) mg/dL Direct Bilirubin 0.1 (0.0-0.2) mg/dL Indirect Bilirubin 0.6 (0.0-1.2) mg/dL AST 18 (13-39) Units/L ALT 30 (7-52) Units/L Alkaline Phosphatase 40 (34-104) Units/L Troponin I < 0.03 (< 0.04) ng/mL B-Natriuretic Peptide (Less than 100) pg/mL Serum Total Protein 5.9 L (6.4-8.9) g/dL Albumin 3.7 (3.5-5.7) g/dL Globulin 2.2 L (2.4-3.5) g/dL Albumin/Globulin Ratio 1.7 (1.1-2.2) 08/19/18 08/19/18 Range/Units 14:16 14:16 WBC (4.3-11.1) K/mcL RBC (4.19-5.50) M/mcL Hgb (12.9-16.9) g/dL Hct (37.5-50.1) % MCV (83.0-100.0) fL MCH (28.0-33.3) pg MCHC (31.6-35.5) g/dL RDW (11.5-14.5) % Plt Count (140-400) K/mcL MPV (9.4-12.4) fL Immature Gran % (0-4) % Seg Neutrophils % % Lymphocytes % % Monocytes % % Eosinophils % % Basophils % % Neutrophils # (1.6-8.9) K/mcL Lymphocytes # (0.6-4.6) K/mcL Monocytes # (0.0-1.3) K/mcL Eosinophils # (0.0-0.6) K/mcL Basophils # (0.0-0.2) K/mcL PT (9.4-12.1) Seconds INR Sodium (136-145) mEq/L Potassium (3.5-5.1) mEq/L Chloride (98-107) mEq/L Carbon Dioxide (23-29) mEq/L BUN (6-20) mg/dL Creatinine (0.70-1.30) mg/dL Est GFR ( Amer) (> 60) Est GFR (Non-Af Amer) (> 60) BUN/Creatinine Ratio (6-26) Glucose (70-105) mg/dL Calculated Osmolality (280-300) Lactic Acid 1.6 (0.5-2.2) mmol/L Calcium (8.6-10.3) mg/dL Magnesium (1.6-2.6) mg/dL Total Bilirubin (0.3-1.0) mg/dL Direct Bilirubin (0.0-0.2) mg/dL Indirect Bilirubin (0.0-1.2) mg/dL AST (13-39) Units/L ALT (7-52) Units/L Alkaline Phosphatase (34-104) Units/L Troponin I (< 0.04) ng/mL B-Natriuretic Peptide 50 (Less than 100) pg/mL Serum Total Protein (6.4-8.9) g/dL Albumin (3.5-5.7) g/dL Globulin (2.4-3.5) g/dL Albumin/Globulin Ratio (1.1-2.2) - Radiology Data Radiology results reviewed: Yes I reviewed the patient's radiology results. Lower Extremity CT 08/19/18 13:44 IMPRESSION: 1. Circumferential subcutaneous fat stranding in the distal leg tapering proximally and distally compatible with cellulitis versus sterile edema. No drainable fluid collection. 2. Questionable filling defects within the posterior tibial and peroneal veins within the possibility of deep venous thrombosis. Alternatively this may represent mixing of contrast. Recommend further evaluation with Doppler ultrasound. D/ / Morgan Jha MD / Morgan Jha MD Interpreting Provider: Morgan Jha MD Chest X-Ray 08/19/18 13:46 IMPRESSION: No new acute cardiopulmonary findings. D/ / Courtney Green MD / Courtney Green MD Interpreting Provider: Courtney Green MD - EKG Data EKG #1 EKG attestation: Yes I reviewed and interpreted this EKG. EKG shows normal: sinus rhythm Rate: normal Rhythm: NSR Interpretation: no acute changes, nonspecific ST-T wave changes S.B.A.R. - S.B.A.R. Situation: Demographics Background: Presenting Complaint Assessment: Vital Signs, Course and respsone to treatment, Patient/Family Expectation Recommendation: Barrier(s) to disposition, Recommendation based on pending studies, treatments, or consults S.B.A.R. Report Given to: Hospitalist SAnnyBAnnyAAnnyRAnny Repor Time: 16:24 Attestation Statement - Attestation Attestation: Resident Attestation: I examined this patient and my medical decision making was reviewed with the Resident Physician. I agree with the documented findings, disposition and treatment plan as described except to the extent set forth below. We independently had [id number] contact with the patient. EKG reviewed with resident physician. Patient with a history of COPD, factor V on anticoagulation presenting for evaluation of leg pain and swelling. Patient with risks and hospitalization for pneumonia. Patient continuing to worsen at home. Patient will undergo further evaluation for cellulitis versus DVT versus continued pneumonia. Patient's medical records were reviewed. The patient had positive findings of Mora as well as HSV and his last from. These are not apparent in medical decision-making of prior hospitalization. I did discuss events director who is familiar with the patient. Cannulas a contaminant that he is expected to see. HSV will need to be treated. Recommends acyclovir. Patient will be admitted for further management.
[2018-08-19] MEDS ORDERED: Fluconazole 400 MG/200 ML 400 MG/200 ML BAG IVPB ONE (14:19)
[2018-08-19 14:39] LABS: Basophils % 0.2 %; Hematocrit 41.8 % (37.5-50.1); Hemoglobin 13.3 g/dL (12.9-16.9); Immature Granulocytes % 2.1 % (0-4); Lymphocytes # 0.5 K/mcL (0.6-4.6); Lymphocytes % 2.3 %; Mean Corpuscular HGB Conc 31.8 g/dL (31.6-35.5); Mean Corpuscular Hemoglobin 30.2 pg (28.0-33.3); Mean Platelet Volume 9.9 fL (9.4-12.4); Monocytes # 2.6 K/mcL (0.0-1.3); Monocytes % 11.5 %; Neutrophils # 19.2 K/mcL (1.6-8.9); Platelet Count 126 K/mcL (140-400); Red Cell Distribution Width 15.2 % (11.5-14.5); Segmented Neutrophils % 83.9 %
[2018-08-19 14:41] LABS: Basophils # 0.1 K/mcL (0.0-0.2)
[2018-08-19 14:45] LABS: INR 2.3; Prothrombin Time 25.5 Seconds (9.4-12.1)
[2018-08-19] MEDS ORDERED: Acyclovir 750 MG in D5% in Water 250 ML IVPB ONE (14:48)
[2018-08-19 15:00] LABS: Alanine Aminotransferase 30 Units/L (7-52); Albumin 3.7 g/dL (3.5-5.7); Albumin/Globulin Ratio 1.7 (1.1-2.2); Alkaline Phosphatase 40 Units/L (34-104); Aspartate Amino Transferase 18 Units/L (13-39); BUN/Creatinine Ratio 24 (6-26); Bilirubin,Direct 0.1 mg/dL (0.0-0.2); Bilirubin,Indirect 0.6 mg/dL (0.0-1.2); Bilirubin,Total 0.7 mg/dL (0.3-1.0); Blood Urea Nitrogen 20 mg/dL (6-20); Carbon Dioxide 29 mEq/L (23-29); Chloride 98 mEq/L (98-107); Globulin 2.2 g/dL (2.4-3.5); Glucose 177 mg/dL (70-105); Magnesium 2.2 mg/dL (1.6-2.6); Osmolality,Calculated 287 (280-300); Potassium 4.5 mEq/L (3.5-5.1); Sodium 135 mEq/L (136-145); Total Protein 5.9 g/dL (6.4-8.9); Troponin I < 0.03 ng/mL (< 0.04); eGFR For Non-African Americans > 60 (> 60)
[2018-08-19] MEDS ORDERED: *HR* LORazepam 2 MG/ML VIAL IVP ONE (15:04)
[2018-08-19] MEDS ORDERED: Naloxone 0.4 MG/ML INJ IVP PRN (16:16)
[2018-08-19 16:41] LABS: C-Reactive Protein 19 mg/L (Less than 10)
--- NOTE | 2018-08-19 16:51 | Internal Med History&Physical ---
Date of Encounter: 08/19/18 Time of Encounter: 16:47 Internal Medicine - H&P: HPI Chief complaint: pain on the left lower extr Admitted From: Home Plans for Post Hospital Care: Home History of present illness: Mr. Oliva is a 58 year old male COPD on 3L home O2, factor V Leiden, anxiety and HTN presents with left lower extremity pain. Patient report that this morning at around 3am he started having pain on his left lower extremity, reported seeing a small red spot on his clemens anteriorly, but as the morning passed the erythema became bigger and he started having subjective fever and the area became more painful and he decided to come to the ED to get checked. He denies trauma to the area and denies ticks bites. Patient reports that he was recently treated for COPD exacerbation and reports he has been feeling short of breath with ambulation at home, denies productive cough. Denies nausea, vomiting, or abdominal pain. Past Med Surg Social Fam HX - Past Medical History Medical history: COPD, DVT, hypertension, pulmonary embolus, other Additional medical history: juan c filter Psychiatric history: anxiety - Past Surgical History Surgical History: non-contributory Additional surgical history: PLACEMENT OF THE IVC FILTER. VASECTOMY - Social History Smoking Status: Former smoker Smokeless Tobacco Status: Yes Alcohol use: none Drug use: none - Family History Father Adopted: No Living Status: Hx Family Cardiac Disorders: Yes (SD) Hx Family Respiratory Disorders: Yes (copd, black lung) Hx Family Cancer: Yes Hx Family GI Disorders: No Mother Adopted: No Living Status: Still Living Hx Family Respiratory Disorders: Yes (copd) Hx Family Cancer: Yes (lung, brain) Hx Family GI Disorders: Yes (colon) Internal Medicine - H&P: Meds Gabapentin [Neurontin] 300 mg PO TID 03/27/15 [History] DULoxetine [Cymbalta] 30 mg PO HS 02/27/17 [History] Atorvastatin [Lipitor] 10 mg PO HS 03/23/17 [History] Lisinopril [Zestril] 20 mg PO 1800 03/23/17 [History] Metoprolol [Lopressor] 12.5 mg PO BID tablet 04/04/17 [Rx] Tizanidine HCl [Zanaflex] 4 mg PO TID PRN #10 capsule 04/04/17 [Rx] Furosemide [Lasix] 40 mg PO BID #60 tablet 04/05/17 [Rx] ALPRAZolam [Xanax 1 MG Tablet] 1 mg PO BID PRN 04/17/17 [History] Albuterol Sulfate [Albuterol Inhaler] 2 puff IH Q4HR PRN 08/03/18 [History] Ipratropium Neb [Atrovent Neb] 0.5 mg IH Q6HR PRN 08/03/18 [History] Levalbuterol Neb [Xopenex Neb] 1.25 mg IH Q6H PRN 08/03/18 [History] Warfarin Sodium 5 mg PO SUTUWEFR 08/03/18 [History] Warfarin Sodium 7.5 mg PO MOTHSA 08/03/18 [History] Acetylcysteine 10% 2 ml IH [id number] #120 inhsol 08/15/18 [Rx] Benzocaine 20% [Orajel] 1 appl TP TID PRN gel..gram. 08/15/18 [Rx] Budesonide/Formoterol 160/4.5 [Symbicort 160/4.5] 2 puff IH BIDR #1 inh 08/15/18 [Rx] Chloraseptic [place] [Chloraseptic] 2 spray MM QID PRN bottle 08/15/18 [Rx] Doxycycline 100 mg PO BID #8 capsule 08/15/18 [Rx] predniSONE [PredniSONE] 40 mg PO DAILY #30 tablet 08/15/18 [Rx] Allergy/AdvReac Type Severity Reaction Status Date / Time No Known Allergies Allergy Verified 07/29/18 00:33 All Systems PM: A 10-system review of systems was performed and is negative for pertinent findings except as documented above in the HPI. - Constitutional Constitutional: chills, fever(s) (subjective ), no weakness - EENT Eyes: no pain Nose, mouth and throat: no dysphagia, no sinus pain - Cardiovascular Cardiovascular ROS IM: dyspnea, dyspnea on exertion, no chest pain, no irregular heart rhythm, no lightheadedness, no orthopnea, no palpitations - Respiratory Respiratory: cough (non-productive), dyspnea, pain with cough, no wheezing, no excessive phlegm production, no change in phlegm color - Gastrointestinal Gastrointestinal: no abdominal pain, no nausea, no vomiting - Genitourinary Genitourinary ROS male: no difficulty urinating, no dysuria, no urinary frequency, no urinary incontinence, no urinary urgency - Musculoskeletal Musculoskeletal ROS IM: no arthralgias, no deformity, no muscle weakness - Integumentary Integumentary IM: erythema (left lower extr), no skin ulcer - Neurological Neurological ROS: no abnormal gait, no headache(s), no tremor(s) - Psychiatric Psychiatric: no anxiety, no hopelessness, no irritability - Endocrine Endocrine IM: no cold intolerance, no excessive sweating - Hematologic/Lymphatic Hematologic/Lymphatic: no lymphadenopathy - Allergic/Immunologic Allergic/Immunologic: no GI upset with certain foods - Constitutional Vitals: Temp Pulse Resp BP Pulse Ox 98.2 F 72 22 130/75 97 08/19/18 13:12 08/19/18 16:35 08/19/18 16:35 08/19/18 16:35 08/19/18 16:35 Exam: Vitals: Reviewed. General: Alert and oriented x4. In mild distress due to pain on the left lower extr HEENT: EOM, pupils equal, round and reactive. Cardiovascular: RRR, normal S1 & S2, no rubs, murmurs or gallops. Lungs: minimal expiratory wheezes, no crackles. Abdomen: Obese, soft, non-tender, no rigidity. Extremities: erythema, edema, warmth and tenderness of the left lower extr Neurological: Normal cognition and motor skills. Rest of the physical exam is non contributory Internal Med - H&P Results - Labs CBC & Chem 7: 08/19/18 14:16 08/19/18 14:16 Labs: Short CBC 08/19/18 Range/Units 14:16 WBC 22.9 H (4.3-11.1) K/mcL Hgb 13.3 (12.9-16.9) g/dL Hct 41.8 (37.5-50.1) % Plt Count 126 L (140-400) K/mcL Neutrophils # 19.2 H (1.6-8.9) K/mcL BMP 08/19/18 14:16 Sodium 135 L Potassium 4.5 Chloride 98 Carbon Dioxide 29 BUN 20 Creatinine 0.83 Glucose 177 H Calcium 9.0 Cardiac Enzymes 08/19/18 Range/Units 14:16 Troponin I < 0.03 (< 0.04) ng/mL Liver Function 08/19/18 Range/Units 14:16 Total Bilirubin 0.7 (0.3-1.0) mg/dL Direct Bilirubin 0.1 (0.0-0.2) mg/dL AST 18 (13-39) Units/L ALT 30 (7-52) Units/L Alkaline Phosphatase 40 (34-104) Units/L Albumin 3.7 (3.5-5.7) g/dL - Impressions ITS Impressions Lower Extremity CT 08/19/18 13:44 IMPRESSION: 1. Circumferential subcutaneous fat stranding in the distal leg tapering proximally and distally compatible with cellulitis versus sterile edema. No drainable fluid collection. 2. Questionable filling defects within the posterior tibial and peroneal veins within the possibility of deep venous thrombosis. Alternatively this may represent mixing of contrast. Recommend further evaluation with Doppler ultrasound. D/ / Morgan Jha MD / Morgan Jha MD Interpreting Provider: Morgan Jha MD Chest X-Ray 08/19/18 13:46 IMPRESSION: No new acute cardiopulmonary findings. D/ / Courtney Green MD / Courtney Green MD Interpreting Provider: Courtney Green MD - Diagnostic Studies Chest x-ray Status: image reviewed by me (no acute abnormalities. ) - Assessment and Plan (1) COPD (chronic obstructive pulmonary disease) Current Visit: No Status: Acute Assessment and plan: acutely exacerbated. Plan bronchodilators Q4RT scheduled Solu-Medrol 40mg/IV Q8hr patient on empiric broad spectrum Iv antibiotics Sputum culture and gram stain O2 by nasal cannula, titrate for O2Sat >92% ID consulted Qualifiers: COPD type: COPD with acute exacerbation Qualified Code(s): J44.1 - Chronic obstructive pulmonary disease with (acute) exacerbation (2) Cellulitis Current Visit: Yes Status: Acute Assessment and plan: erythema, edema, warmth and tenderness on the left lower extr. based on the distribution of the erythema this could be an insect bite. Plan will start patient on broad spectrum antibiotics with clindamycin 300mg/IV Q8HRs and ceftriaxone 2gm/IV daily tramadol 50mg/PO for pain control draw a map around the erythema to monitor progression extremity elevated >[address] of the extremity. blood culture ordered. Qualifiers: Site of cellulitis: extremity Site of cellulitis of extremity: lower extremity Laterality: left Qualified Code(s): L03.116 - Cellulitis of left lower limb (3) Chronic hypoxemic respiratory failure Current Visit: Yes Status: Acute Assessment and plan: plan of care as per problem #1. (4) DVT prophylaxis Current Visit: No Status: Acute Assessment and plan: patient is on warfarin for factor V Leiden mutation. (5) Factor V Leiden Current Visit: No Status: Chronic Assessment and plan: continue warfarin per pharmacy protocol (6) HTN (hypertension) Current Visit: No Status: Chronic Assessment and plan: will resume home medications for BP control Qualifiers: Hypertension type: essential hypertension Qualified Code(s): I10 - Essential (primary) hypertension (7) Obesity (BMI 30-39.9) Current Visit: No Status: Chronic - Time Spent With Patient Total time spent is greater than 50% in coordination of care (as documented) at patient's floor/unit and/or counseling patient: Greater than 35 minutes (45)
[2018-08-19] MEDS ORDERED: cefTRIAXone 2,000 MG in Water for inj. (sterile) 20 ML 20 ML IVP SCH ×2 (17:00→21:00)
[2018-08-19] MEDS ORDERED: Levofloxacin 750 MG/150 ML 750 MG/150 ML BAG IVPB SCH (17:00)
[2018-08-19] MEDS ORDERED: Warfarin perPT PO PRN (18:00)
[2018-08-19] MEDS ORDERED: *HR* Warfarin 5 MG TABLET PO ONE (18:00)
[2018-08-19] MEDS: traMADol 50 MG TABLET PO PRN (18:08)
[2018-08-19] MEDS: Furosemide 40 MG TABLET PO SCH (18:08)
[2018-08-19] MEDS ORDERED: *HR* HYDROcodone/Acet 5/325 mg TABLET PO PRN (18:44)
[2018-08-19] MEDS: ALPRAZolam 1 MG TABLET PO PRN (18:53)
[2018-08-19] MEDS: Ipratropium/Albuterol Neb 3 ML IH SCH (19:43)
[2018-08-19] MEDS: Budesonide/Formoterol 160/4.5 1 PUFF INH IH SCH (19:43)
[2018-08-19] MEDS: *HR* OxyCODONE/APAP 5/325 TABLET PO PRN (22:33)
[2018-08-19 22:49] LABS: Bilirubin,Urine Negative (Negative); Blood,Urine Negative (Negative); Clarity,Urine Clear (Clear); Color,Urine Yellow (Yellow); Glucose,Urine (UA) 500 mg/dL (Normal); Ketones,Urine Negative (Negative); Leukocyte Esterase,Urine Negative (Negative); Nitrite,Urine Negative (Negative); PH,Urine 6.5 pH Units (5.0-8.0); Protein,Urine Negative (Neg-Trace); Specific Gravity,Urine 1.014 (1.010-1.025); Urobilinogen,Urine Normal (Normal)
[2018-08-20] MEDS ORDERED: Acyclovir 750 MG in D5% in Water 250 ML IVPB SCH
[2018-08-20] MEDS: ALPRAZolam 1 MG TABLET PO PRN ×3 (00:15→20:35)
[2018-08-20] MEDS: tiZANidine 4 MG TABLET PO PRN ×2 (00:15→22:28)
[2018-08-20] MEDS: Clindamycin 300 MG in D5% in Water 50 ML IVPB SCH ×3 (00:16→17:00)
[2018-08-20] MEDS: MethylPREDNISolone 40 MG/ML VIAL IVP SCH ×2 (00:16→08:34)
[2018-08-20] MEDS: Ipratropium/Albuterol Neb 3 ML IH SCH ×7 (00:31→23:31)
[2018-08-20] MEDS: *HR* OxyCODONE/APAP 5/325 TABLET PO PRN ×3 (05:20→17:49)
[2018-08-20 07:05] LABS: Basophils % 0.1 %; Hematocrit 38.9 % (37.5-50.1); Hemoglobin 12.3 g/dL (12.9-16.9); Immature Granulocytes % 1.2 % (0-4); Lymphocytes # 0.6 K/mcL (0.6-4.6); Lymphocytes % 3.9 %; Mean Corpuscular HGB Conc 31.6 g/dL (31.6-35.5); Mean Corpuscular Hemoglobin 30.1 pg (28.0-33.3); Mean Corpuscular Volume 95.1 fL (83.0-100.0); Mean Platelet Volume 9.6 fL (9.4-12.4); Monocytes # 0.7 K/mcL (0.0-1.3); Monocytes % 4.8 %; Neutrophils # 13.3 K/mcL (1.6-8.9); Platelet Count 128 K/mcL (140-400); Red Blood Count 4.09 M/mcL (4.19-5.50); Red Cell Distribution Width 15.5 % (11.5-14.5)
[2018-08-20 07:14] LABS: INR 3.2; Prothrombin Time 35.9 Seconds (9.4-12.1)
[2018-08-20 07:25] LABS: BUN/Creatinine Ratio 17 (6-26); Blood Urea Nitrogen 15 mg/dL (6-20); Calcium 9.3 mg/dL (8.6-10.3); Carbon Dioxide 31 mEq/L (23-29); Chloride 97 mEq/L (98-107); Glucose 221 mg/dL (70-105); Magnesium 2.2 mg/dL (1.6-2.6); Osmolality,Calculated 288 (280-300); Phosphorous 3.6 mg/dL (2.7-4.5); Potassium 4.5 mEq/L (3.5-5.1); Sodium 135 mEq/L (136-145); eGFR For Non-African Americans > 60 (> 60)
[2018-08-20] MEDS: Furosemide 40 MG TABLET PO SCH ×2 (08:34→16:33)
--- NOTE | 2018-08-20 09:03 | Electrocardiograph Report ---
[place] [id number] Test Date: 2018-08-19 Pat Name: Mason Oliva Department: [id number] Room: [facility] Gender: M Client Portfolio Manager: : [id number] Requested By: Jason Mendes Order Number: [id number] Reading MD: Roderick Singer Measurements Intervals [place] Rate: 77 P: 27 ID: [id number] QRS: 8 QRSD: 89 T: 30 QT: 339 QTc: 384 Interpretive Statements Sinus rhythm Electronically Signed On 08-20-2018 9:02:12 EDT by Roderick Singer
--- NOTE | 2018-08-20 09:20 | Internal Med Progress Note ---
Hospitalist Progress Note - Encounter Date of Encounter: 08/20/18 Time of Encounter: 09:18 - Subjective Interval History: I have seen and evaluated the patient and bedside. He reported burning on the left lower extremity alleviated by a cooling path he has been using. denies chill. denies shortness of breath or chest pain. denies nausea or vomiting. peggy es loose stool. - Exam Vitals: Temp Pulse Resp BP Pulse Ox 97.7 F 62 18 124/76 96 08/20/18 06:56 08/20/18 06:56 08/20/18 06:56 08/20/18 06:56 08/20/18 06:56 Exam: Vitals: Reviewed. General: Alert and oriented x4. still in mild distress due to pain on the left lower extr, but better than yesterday. Cardiovascular: RRR, normal S1 & S2, no rubs, murmurs or gallops. Lungs: minimal expiratory wheezes, no crackles or rales. Abdomen: Obese, soft, non-tender, no rigidity. NABS in all 4 Quadrants. Extremities: erythema, edema, warmth and tenderness of the left lower extr Neurological: No focal neurological abnormalities Rest of the physical exam is non contributory - Assessment and Plan (1) COPD (chronic obstructive pulmonary disease) Current Visit: No Status: Acute Assessment and Plan: patient with minimal wheezing on auscultation. DC IV steroids will start the patient on prednisone 40mg/PO daily. continue bronchodilators Q4RT dhiraj on symbicort incentive spirometry. (2) Cellulitis Current Visit: Yes Status: Acute Assessment and Plan: slightly worsening erythema on the lower extr. reports decrease pain. continue ceftriaxone 1gm/IV daily and clindamycin 300mg/IV Q8HRS on [place] 5-325mg/PO 1tab Q6HRs for pain control (3) Chronic hypoxemic respiratory failure Current Visit: Yes Status: Acute Assessment and Plan: plan of care as per problem #1. (4) Factor V Leiden Current Visit: No Status: Chronic Assessment and Plan: Continue warfarin per pharmacy protocol. INR is therapeutic. (5) HTN (hypertension) Current Visit: No Status: Chronic Assessment and Plan: Blood pressures well controlled. Patient is on furosemide 40 mg by mouth twice a day. Patient on metoprolol home dose. (6) Obesity (BMI 30-39.9) Current Visit: No Status: Chronic (7) HSV infection Current Visit: Yes Status: Suspected Assessment and Plan: recent respiratory panel positive for HSV DNA PCR. ID consulted to clarify the need for treatment as patient continue to feel short breath, despite being on high dose steroids. recommendations appreciated (8) Sepsis Current Visit: Yes Status: Resolved DVT Prophylaxis: patient is on warfarin due to factor V of Leiden deficiency. INR therapeutic. - Summary of Assessment and Plan Summary of Assessment and Plan: patient to remain in the hospital due to cellulitis of the left lower extremity on broad spectrum IV antibiotics. - Time Spent with Patient Total time spent is greater than 50% in coordination of care (as documented) at patient's floor/unit and/or counseling patient: Greater than 35 minutes (40) Plan of Care Discussed with: patient (and the nurse.) Internal Medicine: Result - Labs CBC & Chem 7: 08/20/18 06:04 08/20/18 06:04 Labs: Short CBC 08/19/18 08/20/18 Range/Units 14:16 06:04 WBC 22.9 H 14.8 H (4.3-11.1) K/mcL Hgb 13.3 12.3 L (12.9-16.9) g/dL Hct 41.8 38.9 (37.5-50.1) % Plt Count 126 L 128 L (140-400) K/mcL Neutrophils # 19.2 H 13.3 H (1.6-8.9) K/mcL BMP 08/19/18 08/20/18 14:16 06:04 Sodium 135 L 135 L Potassium 4.5 4.5 Chloride 98 97 L Carbon Dioxide 29 31 H BUN 20 15 Creatinine 0.83 0.88 Glucose 177 H 221 H Calcium 9.0 9.3 Cardiac Enzymes 08/19/18 Range/Units 14:16 Troponin I < 0.03 (< 0.04) ng/mL Liver Function 08/19/18 Range/Units 14:16 Total Bilirubin 0.7 (0.3-1.0) mg/dL Direct Bilirubin 0.1 (0.0-0.2) mg/dL AST 18 (13-39) Units/L ALT 30 (7-52) Units/L Alkaline Phosphatase 40 (34-104) Units/L Albumin 3.7 (3.5-5.7) g/dL Urine 08/19/18 Range/Units 22:30 Urine Color Yellow (Yellow) Urine Clarity Clear (Clear) Urine pH 6.5 (5.0-8.0) pH Units Ur Specific [place] 1.014 (1.010-1.025) Urine Protein Negative (Neg-Trace) mg/dL Urine Glucose (UA) 500 H (Normal) mg/dL - ABG Interpretation ABG results: PT/INR, D-dimer PT 35.9 Seconds (9.4-12.1) H 08/20/18 06:04 - Impressions Impressions Lower Extremity CT 08/19/18 13:44 IMPRESSION: 1. Circumferential subcutaneous fat stranding in the distal leg tapering proximally and distally compatible with cellulitis versus sterile edema. No drainable fluid collection. 2. Questionable filling defects within the posterior tibial and peroneal veins within the possibility of deep venous thrombosis. Alternatively this may represent mixing of contrast. Recommend further evaluation with Doppler ultrasound. D/ / Morgan Jha MD / Morgan Jha MD Interpreting Provider: Morgan Jha MD Chest X-Ray 08/19/18 13:46 IMPRESSION: No new acute cardiopulmonary findings. D/ / Courtney Green MD / Courtney Green MD Interpreting Provider: Courtney Green MD Consult Discharge Plan - Plan Referrals: NONE,PCP [Primary Care Provider] - ____ (1) COPD (chronic obstructive pulmonary disease) Qualifiers: COPD type: COPD with acute exacerbation Qualified Code(s): J44.1 - Chronic obstructive pulmonary disease with (acute) exacerbation (2) Cellulitis Qualifiers: Site of cellulitis: extremity Site of cellulitis of extremity: lower extremity Laterality: left Qualified Code(s): L03.116 - Cellulitis of left lower limb (5) HTN (hypertension) Qualifiers: Hypertension type: other secondary hypertension Qualified Code(s): I15.8 - Other secondary hypertension (8) Sepsis Qualifiers: Sepsis type: sepsis due to unspecified organism Qualified Code(s): A41.9 - Sepsis, unspecified organism
[2018-08-20] MEDS: Budesonide/Formoterol 160/4.5 1 PUFF INH IH SCH ×2 (11:30→19:46)
--- NOTE | 2018-08-20 11:31 | Infectious Disease Consult ---
Infectious Disease-Consult - Encounter Date/Time Date of Encounter: 08/20/18 Time of Encounter: 11:27 - Data of Consult Patient: new to practice Reason for consult: HSV PCR on BAL Consult date: 08/20/18 Requesting Physician: Tiffany Cosme Primary Care Provider: PCP NONE - HPI HPI: Mr. Oliva is a 58-year-old male with a past medical history of COPD O2 dependent on 3 L at baseline, hypertension, factor V Leiden disorder, DVT, PE status post IVC filter, and anxiety. The patient was admitted to the hospital 08/19/18 for sepsis, pneumonia, and cellulitis. We are consulted 08/20/18 for further workup and treatment recommendations for HSV PCR positive on the BAL. Briefly, the patient is a 58-year-old male with past medical history as stated above. The patient presented to the emergency department with complaints of left leg swelling and shortness of breath. Review of the medical record indicates that the patient was hospitalized 08/03/18 through 08/15/18 during which time he was worked up for possible pneumonia. He had minimal improvement despite broad-spectrum antibiotics and pulmonology was consulted. He underwent bronchoscopy 08/07/18 that revealed mucopurulent secretions in the right middle lobe as well as some bronchial erythema. BAL cultures grew only Mora albicans which was thought to be a contaminant. HSV PCR on the BAL of the left lower lobe, right upper lobe, right middle lobe were all positive. Strep pneumococcal legionella urinary antigens were negative. Procalcitonin was 0.07. MRSA screen was negative. He received IV cefepime from 08/04 through 08/11, fluconazole 08/08 through 08/14, and doxycycline 08/10 through 08/15. It appears he was discharged to complete an additional 4 days of oral doxycycline on discharge. Apparently, the patient felt that he was more short of breath and had some left leg swelling so he presented to the ER for evaluation. Upon arrival, he was tachycardic and had leukocytosis. He was afebrile and otherwise hemodynamically stable. Lactic acid, renal function, and LFTs were normal. Urinalysis was negative. ESR was normal with a CRP of 19. He had a lower extremity CT that showed cellulitis versus sterile edema and a possible DVT. Chest x-ray was negative for acute abnormality. Blood cultures were obtained 2 sets and are pending. He was started on Vanco and Zosyn and admitted to the hospital for further evaluation. Since admission, the patient's WBC has improved. His renal function remains normal. He underwent a venous duplex study that was negative for DVT or SVT in the left lower extremity. On admission, his antibiotics were D escalated to clindamycin and Rocephin. Acyclovir was added due to the HSV PCR on the BAL d uring his most recent hospitalization. We have asked to evaluate and make further recommendations. During my exam today, the patient states that his shortness of breath persists, but is improved overall. He states this typically worse at night and with exertion. He reports a chronic cough productive of yellow sputum, mainly in the morning that improves through the day. He reports subjective fevers with chills and sweats at home. Denies headache or neck pain. Reports some chest tightness that is associated with the shortness of breath. Denies nausea, vomiting, diarrhea, or constipation. Denies abdominal pain or urinary complaints. States his appetite is good. Reports pain in the left lower extremity in the same area as the discoloration. He denies known trauma. Denies known injury. States that it was warm to touch and burning overnight. He otherwise denies skin rashes or lesions and denies oral thrush. The patient lives at home with his family. 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 States he quit smoking about 5 years ago. Denies alcohol or illicit drug use. Denies chronic infectious diseases. Denies recent travel outside the [facility]. States he has been to [place] in the past, but nothing in the [facility] region. He denies any pet or animal exposures. - ROS Review of Systems: All systems reviewed and no additional remarkable complaints except as stated. - Results CBC & Chem 7: 08/20/18 06:04 08/20/18 06:04 - Exam Vitals: Temp Pulse Resp BP Pulse Ox 97.8 F 71 19 131/84 95 08/20/18 10:06 08/20/18 10:06 08/20/18 10:06 08/20/18 10:08/20/18 10:06 Exam: Head: Atraumatic, normal inspection, normocephalic. Eye: EOMI, PERRLA, no scleral icterus noted. ENT: Mucous membranes moist. No odontogenic infection noted. Neck: Normal inspection, no meningismus. Respiratory: Clear to auscultation. No rales, respiratory distress, rhonchi, or wheezes noted. Cardiovascular: Regular rate and rhythm, S1 and S2 audible. No murmurs, rubs, or gallops. GI: Soft, nondistended, normal bowel sounds. Extremities:No joint swelling, pedal edema, or tenderness noted. Back: Normal inspection. No vertebral tenderness noted. Neurological: Alert, oriented 3, no focal deficits. Psychiatric: normal affect, normal mood. Skin: Dry, intact, warm. Normal color. No rashes. Gabapentin [Neurontin] 300 mg PO TID 03/27/15 [History] DULoxetine [Cymbalta] 30 mg PO HS 02/27/17 [History] Atorvastatin [Lipitor] 10 mg PO HS 03/23/17 [History] Lisinopril [Zestril] 20 mg PO 1800 03/23/17 [History] Metoprolol [Lopressor] 12.5 mg PO BID tablet 04/04/17 [Rx] Tizanidine HCl [Zanaflex] 4 mg PO TID PRN #10 capsule 04/04/17 [Rx] Furosemide [Lasix] 40 mg PO BID #60 tablet 04/05/17 [Rx] ALPRAZolam [Xanax 1 MG Tablet] 1 mg PO BID PRN 04/17/17 [History] Albuterol Sulfate [Albuterol Inhaler] 2 puff IH Q4HR PRN 08/03/18 [History] Ipratropium Neb [Atrovent Neb] 0.5 mg IH Q6HR PRN 08/03/18 [History] Levalbuterol Neb [Xopenex Neb] 1.25 mg IH Q6H PRN 08/03/18 [History] Warfarin Sodium 5 mg PO SUTUWEFR 08/03/18 [History] Warfarin Sodium 7.5 mg PO MOTHSA 08/03/18 [History] Acetylcysteine 10% 2 ml IH Z1IOFLH #120 inhsol 08/15/18 [Rx] Benzocaine 20% [Orajel] 1 appl TP TID PRN gel..gram. 08/15/18 [Rx] Budesonide/Formoterol 160/4.5 [Symbicort 160/4.5] 2 puff IH BIDR #1 inh 08/15/18 [Rx] Chloraseptic Salters [Chloraseptic] 2 spray MM QID PRN bottle 08/15/18 [Rx] Doxycycline 100 mg PO BID #8 capsule 08/15/18 [Rx] predniSONE [PredniSONE] 40 mg PO DAILY #30 tablet 08/15/18 [Rx] Allergy/AdvReac Type Severity Reaction Status Date / Time No Known Allergies Allergy Verified 07/29/18 00:33 - Assessment and Plan (1) Leukocytosis Current Visit: No Status: Acute WBC elevated on admission. Likely secondary to recent use of steroids. Improved. No other sepsis criteria. Blood cultures drawn 08/19/18 are pending 2 sets. Qualifiers: Leukocytosis type: unspecified Qualified Code(s): D72.829 - Elevated white blood cell count, unspecified SNOMED Code(s): 063948142, 994624911 (2) Left leg pain Current Visit: No Status: Acute Etiology: Unclear. The patient does have a demarcated area of what appears to be ecchymosis to the anterior aspect of the left lower leg. He denies known trauma, but is on blood thinners. Clinically, does not appear to be cellulitis. Currently on Rocephin and clindamycin. SNOMED Code(s): 495482487 (3) Chronic hypoxemic respiratory failure Current Visit: Yes Status: Acute Secondary to COPD. Patient reports he feels somewhat improved compared to when he came in during his last hospitalization. SNOMED Code(s): 626187629 (4) COPD (chronic obstructive pulmonary disease) Current Visit: No Status: Chronic Follows with [facility]. Status post bronchoscopy 08/07/18 that revealed mucopurulent secretions in the right middle lobe. BAL was positive for HSV PCR in the left lower lobe, right upper lobe, right middle lobe. Cultures positive for C. albicans, likely a contaminant. CXR 08/19/18 negative for acute abnormality. Pulmonology consulted. Discussed with Dr. Chavis. No indication to treat. Was on acyclovir until today. Steroids, bronchodilators, O2 via the primary and pulmonology team. Qualifiers: COPD type: COPD with acute exacerbation Qualified Code(s): J44.1 - Chronic obstructive pulmonary disease with (acute) exacerbation SNOMED Code(s): 30490093 (5) Factor V Leiden Current Visit: No Status: Chronic On Coumadin daily. SNOMED Code(s): 888034914 (6) GERD (gastroesophageal reflux disease) Current Visit: No Status: Chronic Qualifiers: Esophagitis presence: esophagitis presence not specified Qualified Code(s): K21.9 - Gastro-esophageal reflux disease without esophagitis SNOMED Code(s): 938919894 (7) Holli filter in place Current Visit: No Status: Chronic SNOMED Code(s): 314212098665331 (8) History of pulmonary embolism Current Visit: No Status: Chronic SNOMED Code(s): 725532843 (9) Hypertension Current Visit: No Status: Chronic Qualifiers: Hypertension type: essential hypertension Qualified Code(s): I10 - Essential (primary) hypertension SNOMED Code(s): 54338290 (10) Obesity (BMI 30-39.9) Current Visit: No Status: Chronic SNOMED Code(s): 918734754, 805694506 (11) CHF (congestive heart failure) Current Visit: No Status: Acute Qualifiers: Heart failure type: diastolic Heart failure chronicity: chronic Qualified Code(s): I50.32 - Chronic diastolic (congestive) heart failure SNOMED Code(s): 72148855 - Recommendations Recommendations: Continue to trend CBC. Await blood cultures are finalized. Supportive care of the left lower extremity (elevation, ice, pain management). COPD management per the pulmonology team. Discontinue Rocephin and clindamycin and observe. No indication to treat the HSV PCR on the BAL. No further recommendations from the ID team. We will sign off. Please re-consult if needed. Past Med Surg Social Fam HX - Past Medical History Attestation: Yes The following information was validated with the patient. Source: patient, old records reviewed, nursing notes reviewed Medical history: COPD, DVT, hypertension, pulmonary embolus, other Additional medical history: holli filter Psychiatric history: anxiety - Past Surgical History Surgical History: non-contributory Additional surgical history: PLACEMENT OF THE IVC FILTER. VASECTOMY - Social History Smoking Status: Former smoker Smokeless Tobacco Status: Yes Alcohol use: none Drug use: none - Family History Father Adopted: No Living Status: Hx Family Cardiac Disorders: Yes ([place]) Hx Family Respiratory Disorders: Yes (copd, black lung) Hx Family Cancer: Yes Hx Family GI Disorders: No Mother Adopted: No Living Status: Still Living Hx Family Respiratory Disorders: Yes (copd) Hx Family Cancer: Yes Hx Family GI Disorders: Yes (colon) Consult Discharge Plan - Plan Referrals: NONE,PCP [Primary Care Provider] - - Attending Attestation I have personally performed a face to face evaluation on this patient. I have reviewed and agree with the care plan. History and Exam by me shows: Patient seen and examined. Clinically he is mildly short of breath but that is his baseline. He does have advanced COPD. Bruising on his left lower extremity really not that impressive. Looks identical tunneled improved he has in the left upper extremity from an IV acce ss. When I spoke with the hospitalist team, they thought it looked worse yesterday and it was warm to touch and it was very tender. Based on that we decided maybe he would benefit from oral antibiotics for 7 days including Keflex and doxycycline. Otherwise no further recommendations we will sign off.
[2018-08-20] MEDS: traMADol 50 MG TABLET PO PRN ×2 (14:25→20:35)
[2018-08-20] MEDS: Gabapentin 300 MG CAPSULE PO SCH ×2 (16:33→20:35)
--- NOTE | 2018-08-20 17:24 | Pulmonology Consult Note ---
Date of Encounter: 08/20/18 Time of Encounter: 11:25 Assessment and Plan (1) COPD (chronic obstructive pulmonary disease) Status: Chronic There is no evidence of any COPD exacerbation at this time and he is on bronchodilators. 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 Recommendation remain the same as last admission which was recent, patient to follow-up as outpatient and thank you for consultation and please call for any questions. Patient understand importance of being compliant with the treatment and hopefully that will lower his risk of recurrent hospitalization. Qualifiers: COPD type: COPD with acute exacerbation Qualified Code(s): J44.1 - Chronic obstructive pulmonary disease with (acute) exacerbation (2) Dyspnea Status: Chronic Qualifiers: Dyspnea type: shortness of breath Qualified Code(s): R06.02 - Shortness of breath; R06.00 - Dyspnea, unspecified; R06.01 - Orthopnea History of Present Illness Consult date: 08/20/18 Requesting physician: Nixon Montaño Reason for consult: COPD History of present illness: This is a very pleasant 58-year-old male with history of COPD and on long-term oxygen therapy and also other comorbidities who presented this time mainly complaining of face left lower extremity pain and thinking that he has cellulitis. For the first with his he is saying that he is breathing better and he feels that he is improving. Patient was hospitalized recently for COPD exacerbation and he was on steroid and antibiotic for long time for his recurrent COPD exacerbation. He still have some dyspnea and wheezing, but denies any significant productive cough. He denies any hemoptysis. Patient feeling better on noninvasive ventilation. Pulmonary consulted for evaluation. Past Med Surg Social Fam HX - Past Medical History Medical history: COPD, DVT, hypertension, pulmonary embolus, other Additional medical history: juan c filter Psychiatric history: anxiety - Past Surgical History Surgical History: non-contributory Additional surgical history: PLACEMENT OF THE IVC FILTER. VASECTOMY - Social History Smoking Status: Former smoker Smokeless Tobacco Status: Yes Alcohol use: none Drug use: none - Family History Father Adopted: No Living Status: Hx Family Cardiac Disorders: Yes (NM) Hx Family Respiratory Disorders: Yes (copd, black lung) Hx Family Cancer: Yes Hx Family GI Disorders: No Mother Adopted: No Living Status: Still Living Hx Family Respiratory Disorders: Yes (copd) Hx Family Cancer: Yes Hx Family GI Disorders: Yes (colon) Medications and Allergies Gabapentin [Neurontin] 300 mg PO TID 03/27/15 [History] DULoxetine [Cymbalta] 30 mg PO HS 02/27/17 [History] Atorvastatin [Lipitor] 10 mg PO HS 03/23/17 [History] Lisinopril [Zestril] 20 mg PO 1800 03/23/17 [History] Metoprolol [Lopressor] 12.5 mg PO BID tablet 04/04/17 [Rx] Tizanidine HCl [Zanaflex] 4 mg PO TID PRN #10 capsule 04/04/17 [Rx] Furosemide [Lasix] 40 mg PO BID #60 tablet 04/05/17 [Rx] ALPRAZolam [Xanax 1 MG Tablet] 1 mg PO BID PRN 04/17/17 [History] Albuterol Sulfate [Albuterol Inhaler] 2 puff IH Q4HR PRN 08/03/18 [History] Ipratropium Neb [Atrovent Neb] 0.5 mg IH Q6HR PRN 08/03/18 [History] Levalbuterol Neb [Xopenex Neb] 1.25 mg IH Q6H PRN 08/03/18 [History] Warfarin Sodium 5 mg PO SUTUWEFR 08/03/18 [History] Warfarin Sodium 7.5 mg PO MOTHSA 08/03/18 [History] Acetylcysteine 10% 2 ml IH [id number] #120 inhsol 08/15/18 [Rx] Benzocaine 20% [Orajel] 1 appl TP TID PRN gel..gram. 08/15/18 [Rx] Budesonide/Formoterol 160/4.5 [Symbicort 160/4.5] 2 puff IH BIDR #1 inh 08/15/18 [Rx] Chloraseptic [place] [Chloraseptic] 2 spray MM BID PRN 08/21/18 [History] Doxycycline 100 mg PO BID #8 capsule 08/21/18 [Rx] Hydrocodone/Acetaminophen [[place] 5-325 Tablet] 1 each PO Q6H 5 Days #10 tablet 08/21/18 [Rx] cephALEXin [Keflex] 500 mg PO TID 21 Days #7 capsule 08/21/18 [Rx] predniSONE [PredniSONE] 20 mg PO BID 08/21/18 [History] Allergy/AdvReac Type Severity Reaction Status Date / Time No Known Allergies Allergy Verified 08/21/18 10:44 All Systems: The remainder of the systems were reviewed and are negative Physical Examination Vital Signs: Vital Signs, Last 4 Hours Temp Pulse Resp BP Pulse Ox 08/20/18 15:20 18 91 08/20/18 14:52 98.4 F 111 20 159/77 92 General: Patient is in no acute distress. HEENT: Normocephalic atraumatic, pupils are equal round and reactive to light and accommodation, anicteric sclera, nares is patent, mucous membranes moist, no JVD, trachea is midline Cardiovascular: Normal sinus rhythm, S1 and S2 audible, no murmur or rubs Respiratory: Scattered wheezing to auscultation bilaterally. No acute distress. No wheezing. Patient not using accessory muscles. Abdomen: Soft, nontender, nondistended, positive bowel sounds in all 4 quadrants Extremities: Warm, dry, trace lower extremity edema. Normal capillary refill. Patient has erythema in his left lower extremity Neuro: Alert and oriented and follows commands. Grossly no neuro deficits. Skin: Warm to touch : No obvious abnormalities. Psych: Normal Results - Laboratory Findings CBC and BMP: 08/21/18 09:58 08/21/18 09:58 PT/INR, D-dimer PT 35.9 Seconds (9.4-12.1) H 08/20/18 06:04 Abnormal lab findings: Abnormal lab results WBC 14.8 K/mcL (4.3-11.1) H 08/20/18 06:04 RBC 4.09 M/mcL (4.19-5.50) L 08/20/18 06:04 Hgb 12.3 g/dL (12.9-16.9) L 08/20/18 06:04 RDW 15.5 % (11.5-14.5) H 08/20/18 06:04 Plt Count 128 K/mcL (140-400) L 08/20/18 06:04 13.3 K/mcL (1.6-8.9) H 08/20/18 06:04 0.5 K/mcL (0.6-4.6) L 08/19/18 14:16 2.6 K/mcL (0.0-1.3) H 08/19/18 14:16 PT 35.9 Seconds (9.4-12.1) H 08/20/18 06:04 Sodium 135 mEq/L (136-145) L 08/20/18 06:04 Chloride 97 mEq/L (98-107) L 08/20/18 06:04 Carbon Dioxide 31 mEq/L (23-29) H 08/20/18 06:04 Glucose 221 mg/dL (70-105) H 08/20/18 06:04 19 mg/L (Less than 10) H 08/19/18 14:16 5.9 g/dL (6.4-8.9) L 08/19/18 14:16 2.2 g/dL (2.4-3.5) L 08/19/18 14:16 500 mg/dL (Normal) H 08/19/18 22:30 - Microbiology Findings Microbiology Findings: Microbiology, Last 48 Hours 08/19/18 14:16 Blood Culture - Preliminary Peripheral Venipuncture Culture is incubating and being continuously monitored for growth. Final report to follow. 08/19/18 14:21 Blood Culture - Preliminary Peripheral Venipuncture Culture is incubating and being continuously monitored for growth. Final report to follow. - Diagnostic Findings Chest x-ray: report reviewed, image reviewed - Clinical Findings Intake & Output: Intake & Output 08/20/18 08/20/18 08/20/18 07:59 15:59 23:59 Intake Total 52 / 1064 1012 / 1064 Balance / 1064 1012 / 1064 Consult Discharge Plan - Plan Additional Instructions: Follow-up appointments: If there is not an appointment listed below, please call your physician and schedule a follow-up appointment. If you have congestive heart failure and your symptoms return, make an appointment with your physician. Medication List: Carry an up to date list of medications you are taking at all time. We have given you an updated medication list including any new medications that you have been prescribed. Please provide that list to your primary provider Symptoms: If your condition changes or you experience any of the following symptoms, notify your physician immediately: Unusual or worsening pain, fever, persistent nausea and vomiting, bleeding, increase in swelling (especially in your legs), sudden weight gain, extreme dizziness, chest pain, increased drainage or redness from a wound or incision. Go to the emergency department if you experience a problem with breathing. Weights: If you have a history of swelling or shortness of breath, weigh yourself daily and notify your physician if you have a weight gain of two or more pounds in one day or 5 or more pounds in a week. If you experience any of the warning signs for stroke: Sudden numbness or weakness of the face, arm or leg; especially on one side of the body, sudden confusion, trouble speaking or understanding, sudden trouble seeing in one or both eyes, sudden trouble walking, dizziness, loss of balance or coordination, sudden sever headache with no cause; Call 911 or go to the emergency room. Stroke is a medical emergency. Some risk factors for stroke: Age, cigarette smoking, diabetes, excessive alcohol consumption, family history, high blood pressure, overweight, physical inactivity, prior stroke, heart attack, diagnosis of carotid artery stenosis or other artery disease. If you smoke, STOP: Smoking or tobacco use significantly increases your risk of heart and lung disease. Your chance of disease greatly increases if you continue to smoke. For more information, call the [place] tobacco quit line for smoking cessation 8-640-RUTG-NOW ( ) Referrals: NONE,PCP [Primary Care Provider] - Prescriptions: Doxycycline 100 mg PO BID #8 capsule cephALEXin [Keflex] 500 mg PO TID 21 Days #7 capsule Hydrocodone/Acetaminophen [[place] 5-325 Tablet] 1 each PO Q6H 5 Days #10 tablet
[2018-08-20] MEDS: Doxycycline 100 MG CAPSULE PO SCH (20:35)
[2018-08-20] MEDS: cephALEXin 500 MG CAPSULE PO SCH (20:35)
[2018-08-21] MEDS: Ipratropium/Albuterol Neb 3 ML IH SCH ×3 (04:13→11:01)
[2018-08-21] MEDS: *HR* OxyCODONE/APAP 5/325 TABLET PO PRN ×2 (04:17→10:21)
[2018-08-21 07:05] VITALS: BP 101/64
[2018-08-21] MEDS: Budesonide/Formoterol 160/4.5 1 PUFF INH IH SCH (07:32)
--- NOTE | 2018-08-21 08:46 | Discharge Summary ---
Orders not resulted at time of discharge: Pending orders 08/19/18 14:16 Culture,Blood [BC] Stat 08/21/18 04:00 Basic Metabolic Panel AM 0400 CBC [Complete Blood Count] [HEME] AM 0400 INR/PT [Prothrombin Time INR] [COAG] AM 0400 Magnesium AM 0400 Phosphorous AM 0400 08/22/18 04:00 INR/PT [Prothrombin Time INR] [COAG] AM 0400 08/23/18 04:00 INR/PT [Prothrombin Time INR] [COAG] AM 0400 08/24/18 04:00 INR/PT [Prothrombin Time INR] [COAG] AM 0400 Date of Encounter: 08/21/18 Time of Encounter: 08:42 - Discharge Diagnosis (1) COPD (chronic obstructive pulmonary disease) Priority: Secondary Status: Chronic Qualifiers: COPD type: COPD with acute exacerbation Qualified Code(s): J44.1 - Chronic obstructive pulmonary disease with (acute) exacerbation (2) Cellulitis Priority: Primary Status: Acute Qualifiers: Site of cellulitis: extremity Site of cellulitis of extremity: lower extremity Laterality: left Qualified Code(s): L03.116 - Cellulitis of left lower limb (3) Chronic hypoxemic respiratory failure Priority: Secondary Status: Chronic (4) Factor V Leiden Priority: Secondary Status: Chronic (5) HTN (hypertension) Priority: Secondary Status: Chronic Qualifiers: Hypertension type: other secondary hypertension Qualified Code(s): I15.8 - Other secondary hypertension (6) Obesity (BMI 30-39.9) Priority: Secondary Status: Chronic (7) HSV infection Priority: Secondary Status: Suspected (8) Sepsis Priority: Secondary Status: Resolved Qualifiers: Sepsis type: sepsis due to unspecified organism Qualified Code(s): A41.9 - Sepsis, unspecified organism Hospital course: Mr. Oliva is a 58 year old male COPD on 3L home O2, factor V Leiden, anxiety and HTN presents with left lower extremity pain. Patient report that this morning at around 3am he started having pain on his left lower extremity, reported seeing a small red spot on his clemens anteriorly, but as the morning passed the erythema became bigger and he started having subjective fever and the area became more painful and he decided to come to the ED to get checked. Patient was admitted to the hospital due to cellulitis of the left lower extr. patient was managed with empiric antibiotics. Patient acute symptoms on presentation resolved. Patient will be discharged home on oral antibiotics. patient also recommended to continue his steroid tapers until he sees the newspaper vendor as outpatient. - Time Spent with Patient Total time spent providing and/or coordinating discharge services: Time spent: Greater than 30 minutes (35) - Discharge Medications Prescriptions: New cephALEXin [Keflex] 500 mg PO TID 21 Days #7 capsule Hydrocodone/Acetaminophen [[place] 5-325 Tablet] 1 each PO Q6H 5 Days #10 tablet Continued Gabapentin [Neurontin] 300 mg PO TID DULoxetine [Cymbalta] 30 mg PO HS Atorvastatin [Lipitor] 10 mg PO HS Lisinopril [Zestril] 20 mg PO 1800 Metoprolol [Lopressor] 12.5 mg PO BID tablet Tizanidine HCl [Zanaflex] 4 mg PO TID PRN #10 capsule PRN Reason: Muscle Spasm Furosemide [Lasix] 40 mg PO BID #60 tablet ALPRAZolam [Xanax 1 MG Tablet] 1 mg PO BID PRN PRN Reason: Anxiety Warfarin Sodium 7.5 mg PO MOTHSA Warfarin Sodium 5 mg PO SUTUWEFR Albuterol Sulfate [Albuterol Inhaler] 2 puff IH Q4HR PRN PRN Reason: Shortness Of Breath Levalbuterol Neb [Xopenex Neb] 1.25 mg IH Q6H PRN PRN Reason: Shortness Of Breath Ipratropium Neb [Atrovent Neb] 0.5 mg IH Q6HR PRN PRN Reason: Shortness Of Breath Acetylcysteine 10% 2 ml IH [id number] #120 inhsol Chloraseptic [place] [Chloraseptic] 2 spray MM QID PRN bottle PRN Reason: Sore Throat Benzocaine 20% [Orajel] 1 appl TP TID PRN gel..gram. PRN Reason: Mouth Sore Pain predniSONE [PredniSONE] 40 mg PO DAILY #30 tablet Budesonide/Formoterol 160/4.5 [Symbicort 160/4.5] 2 puff IH BIDR #1 inh Doxycycline 100 mg PO BID #8 capsule Home Medications: Gabapentin [Neurontin] 300 mg PO TID 03/27/15 [History] DULoxetine [Cymbalta] 30 mg PO HS 02/27/17 [History] Atorvastatin [Lipitor] 10 mg PO HS 03/23/17 [History] Lisinopril [Zestril] 20 mg PO 1800 03/23/17 [History] Metoprolol [Lopressor] 12.5 mg PO BID tablet 04/04/17 [Rx] Tizanidine HCl [Zanaflex] 4 mg PO TID PRN #10 capsule 04/04/17 [Rx] Furosemide [Lasix] 40 mg PO BID #60 tablet 04/05/17 [Rx] ALPRAZolam [Xanax 1 MG Tablet] 1 mg PO BID PRN 04/17/17 [History] Albuterol Sulfate [Albuterol Inhaler] 2 puff IH Q4HR PRN 08/03/18 [History] Ipratropium Neb [Atrovent Neb] 0.5 mg IH Q6HR PRN 08/03/18 [History] Levalbuterol Neb [Xopenex Neb] 1.25 mg IH Q6H PRN 08/03/18 [History] Warfarin Sodium 5 mg PO SUTUWEFR 08/03/18 [History] Warfarin Sodium 7.5 mg PO MOTHSA 08/03/18 [History] Acetylcysteine 10% 2 ml IH [id number] #120 inhsol 08/15/18 [Rx] Benzocaine 20% [Orajel] 1 appl TP TID PRN gel..gram. 08/15/18 [Rx] Budesonide/Formoterol 160/4.5 [Symbicort 160/4.5] 2 puff IH BIDR #1 inh 08/15/18 [Rx] Chloraseptic [place] [Chloraseptic] 2 spray MM QID PRN bottle 08/15/18 [Rx] predniSONE [PredniSONE] 40 mg PO DAILY #30 tablet 08/15/18 [Rx] Doxycycline 100 mg PO BID #8 capsule 08/21/18 [Rx] Hydrocodone/Acetaminophen [[place] 5-325 Tablet] 1 each PO Q6H 5 Days #10 tablet 08/21/18 [Rx] cephALEXin [Keflex] 500 mg PO TID 21 Days #7 capsule 08/21/18 [Rx] Allergies/Adverse Reactions: Allergy/AdvReac Type Severity Reaction Status Date / Time No Known Allergies Allergy Verified 07/29/18 00:33 Date of admission: 08/19/18 17:12 Primary care physician: PCP NONE Consults: 08/19/18 14:44 Consult to Pulmonology [CONS] Stat Consulting Provider: [facility] Reason for Consult: Atypical pna Call Completed: Yes 08/19/18 16:22 Consult to Infectious Diseases [CONS] Routine Consulting Provider: Infectious [facility] [place] Reason for Consult: HSV DNA PCR in the sputum. Call Completed: No 08/20/18 14:54 Consult to Nurse Navigator [CONS] Routine Comment: copd - Constitutional Vitals: Temp Pulse Resp BP Pulse Ox 97.4 F L 74 16 101/64 96 08/21/18 07:04 08/21/18 07:04 08/21/18 07:35 08/21/18 07:04 08/21/18 07:35 Exam: Vitals: Reviewed. General: Alert and oriented x4. No acute distress Cardiovascular: RRR, normal S1 & S2, no rubs, murmurs or gallops. Lungs: minimal expiratory wheezes, no crackles or rales. Abdomen: Obese, soft, non-tender, no rigidity. NABS in all 4 Quadrants. Extremities: erythema, edema, warmth and tenderness of the left lower extr Neurological: No focal neurological abnormalities Rest of the physical exam is non contributory - Patient Status Disposition: Home, Self-Care Condition: Good Functional capacity at discharge: independent ambulation Overall status at discharge: patient is back to baseline - Discharge Instructions Follow Up With: NONE,PCP [Primary Care Provider] - - Diet and Activity Activity: resume usual activities as tolerated, wear oxygen at all times Diet: advance to your usual diet
[2018-08-21] MEDS: ALPRAZolam 1 MG TABLET PO PRN (08:54)
[2018-08-21] MEDS: Gabapentin 300 MG CAPSULE PO SCH (08:54)
[2018-08-21] MEDS: Doxycycline 100 MG CAPSULE PO SCH (08:54)
[2018-08-21] MEDS: cephALEXin 500 MG CAPSULE PO SCH (08:54)
[2018-08-21] MEDS ORDERED: predniSONE 20 MG TABLET PO SCH (09:00)
[2018-08-21] MEDS: Furosemide 40 MG TABLET PO SCH (10:19)
[2018-08-21 10:20] LABS: Basophils % 0.1 %; Hematocrit 35.7 % (37.5-50.1); Hemoglobin 11.5 g/dL (12.9-16.9); Immature Granulocytes % 1.1 % (0-4); Lymphocytes # 0.7 K/mcL (0.6-4.6); Lymphocytes % 4.4 %; Mean Corpuscular HGB Conc 32.2 g/dL (31.6-35.5); Mean Corpuscular Hemoglobin 30.4 pg (28.0-33.3); Mean Corpuscular Volume 94.4 fL (83.0-100.0); Mean Platelet Volume 9.5 fL (9.4-12.4); Monocytes # 1.4 K/mcL (0.0-1.3); Monocytes % 8.4 %; Neutrophils # 14.4 K/mcL (1.6-8.9); Platelet Count 139 K/mcL (140-400); Red Blood Count 3.78 M/mcL (4.19-5.50); Red Cell Distribution Width 15.4 % (11.5-14.5)
[2018-08-21 10:26] LABS: INR 2.6; Prothrombin Time 29.3 Seconds (9.4-12.1)
[2018-08-21 10:36] LABS: BUN/Creatinine Ratio 18 (6-26); Blood Urea Nitrogen 17 mg/dL (6-20); Calcium 9.4 mg/dL (8.6-10.3); Carbon Dioxide 30 mEq/L (23-29); Chloride 96 mEq/L (98-107); Glucose 225 mg/dL (70-105); Magnesium 1.9 mg/dL (1.6-2.6); Osmolality,Calculated 285 (280-300); Potassium 4.5 mEq/L (3.5-5.1); Sodium 133 mEq/L (136-145); eGFR For Non-African Americans > 60 (> 60)
== END 2018-08-21 11:21 | disposition home or self-care (01) | DRG 872 ==
LOC: EMEROOARM 12:42 → 3NENU 12:42
PROVIDERS: ADMIT Internal Medicine Nephrology; ATTEND Internal Medicine Nephrology

== ENCOUNTER 2018-09-29 18:45 | Inpatient (IN) ==
[2018-09-29] MEDS ORDERED: Aspirin 81 MG TAB.CHEW PO ONE (19:01)
[2018-09-29] MEDS ORDERED: Nitroglycerin 0.4 MG TAB.SUBL SL PRN (19:01)
--- NOTE | 2018-09-29 19:36 | Emergency Department Note ---
Disposition Clinical Impression: Syncope Qualifiers: Syncope type: unspecified Qualified Code(s): R55 - Syncope and collapse Disposition: Admitted As Inpatient Referrals: Srinivas Pearce DO [Primary Care Provider] - Time of Disposition: 22:36 Syncope HPI - General Chief Complaint: ED Syncope Stated Complaint: Syncope / Head Injury Time Seen by Provider: 09/29/18 18:58 Source: patient Mode of arrival: private vehicle Limitations: no limitations Nursing Notes Reviewed: Yes Vital Signs Reviewed: Yes - History of Present Illness HPI Narrative: 88-year-old with a past medical history of COPD, multiple PEs on Coumadin for prophylaxis, it was recently admitted September 23 through the for COPD exacerbation. Patient is reporting to the emergency department tonight with complaints of 3 presyncopal events and one syncopal event this evening. Patient states the last syncopal event happened when he was putting something in the freezer, he fell backwards striking his head and hurting his neck. Patient states he has felt dyspneic all day. - Related Data Home Medications Medication Instructions Recorded Confirmed Gabapentin [Neurontin] 300 mg PO TID 03/27/15 09/29/18 DULoxetine [Cymbalta] 30 mg PO HS 02/27/17 09/29/18 Atorvastatin [Lipitor] 10 mg PO HS 03/23/17 09/29/18 Lisinopril [Zestril] 20 mg PO 1800 03/23/17 09/29/18 ALPRAZolam [Xanax 1 MG Tablet] 1 mg PO BID PRN 04/17/17 09/29/18 Albuterol Sulfate [Proventil 2 puff IH Q4HR PRN 08/03/18 09/29/18 Inhaler] Levalbuterol Neb [Xopenex Neb] 1.25 mg IH Q6H PRN 08/03/18 09/29/18 Warfarin Sodium 5 mg PO SUMOTUWETHSA 08/03/18 09/29/18 Warfarin Sodium 7.5 mg PO FR 08/03/18 09/29/18 Tiotropium [place] [Spiriva 2 inh IH DAILY 09/23/18 09/29/18 Respimat] Previous Rx's Medication Instructions Recorded Metoprolol [Lopressor] 12.5 mg PO BID tablet 04/04/17 Tizanidine HCl [Zanaflex] 4 mg PO TID PRN #10 capsule 04/04/17 Furosemide [Lasix] 40 mg PO BID #60 tablet 04/05/17 Acetylcysteine 10% 2 ml IH Q4H PRN #10 inhsol 09/26/18 Azithromycin [Zithromax] 500 mg PO DAILY #4 tablet 09/26/18 HYDROcodone/Acet 5/325 mg [[place] 1 tab PO Q4HR PRN 5 Days #20 tablet 09/26/18 5-325 mg] predniSONE [PredniSONE] 10 mg PO DAILY #20 tablet 09/26/18 Allergies Allergy/AdvReac Type Severity Reaction Status Date / Time No Known Allergies Allergy Verified 09/29/18 20:29 Review of Systems: In addition to that documented in the HPI above, the additional ROS was obtained: Constitutional: Denies fevers or chills Eyes: Denies vision changes ENMT: Denies sore throat CV: Reports chest pain Resp: Reports SOB GI: Denies vomiting or diarrhea : Denies painful urination MSK: Reports recent fall Skin: Denies new rashes Neuro: Denies new numbness or tingling Reports new onset lightheadedness Past Medical History - Past Medical History Attestation: Yes The following information was validated with the patient. Medical history: Reports: COPD, DVT, hypertension, pulmonary embolus, TIA, other Surgical history: Reports: IVC Filter, vasectomy Psychiatric history: Reports: anxiety, depression - Social History Smoking Status: Former smoker Smokeless Tobacco Status: Yes Alcohol use: Reports: none Drug use: Reports: none Physical Exam General: A&O x 3. No acute distress. Well developed, well nourished. Head: atraumatic, normocephalic. ENT: No conjunctival injection, no scleral icterus. PERRLA. EOMI. Oropharynx non- erythematous. mucous membranes moist. Edentulous. Neuro: No focal deficits, no speech deficit, no facial droop, mentating well. BUE/BLE Str 5/5. Bray[place] UE/LE sensation intact. CN II-XII intact. Cerebellar testing with [id number] and yfjf-ja-[id number] intact. Pulm: Lungs CTAB A/P. No wheezes, rales, ronchi. Cardio: RRR no m/r/g. Chest not tender to palpation. Abd: Soft, non-distended. Normoactive bowel sounds. Non-tender to palpation. No guarding. Non rigid. Extremities: Radial pulses 2+ braydon, dorsalis pedis/posterior tibialis 2+ braydon. Mild, non-pitting, LE edema. No cyanosis, clubbing. Skin: warm, dry, intact. No rashes. Psych: Appropriate mood and affect. Answers questions appropriately. Cooperative with exam. - General Limitations: no limitations General appearance: alert, anxious Course Vital Signs Temperature 97.6 F 09/29/18 18:46 Pulse Rate 72 09/29/18 18:46 Respiratory Rate 20 09/29/18 18:46 Blood Pressure 115/78 09/29/18 18:46 O2 Sat by Pulse Oximetry 97 09/29/18 18:46 Temperature 98.2 F 09/29/18 19:33 Pulse Rate 59 09/29/18 21:42 Respiratory Rate 18 09/29/18 21:42 Blood Pressure 131/90 09/29/18 21:42 O2 Sat by Pulse Oximetry 99 09/29/18 21:42 Oxygen Delivery Oxygen Delivery Nasal Cannula Syncope - MDM Narrative Medical decision making narrative: Given patient's multiple episodes of presyncope and syncope as well as dyspnea, patient merits a workup with CBC, BMP, BNP, EKG, chest x-ray. Additionally given patient hitting his head and being on Coumadin we will get a head CT with noncontrast as well as a cervical spine CT given his neck pain. Patient's head CT did not demonstrate any acute intracranial findings, cervical spine CT did not demonstrate an acute fracture. Blood work did not show an elevated white blood cell count. INR was supratherapeutic at 3.2. Given patient's multiple episodes of syncope and dyspnea it was thought that the patient could benefit further inpatient evaluation and workup. Patient was admitted to the hospitalist Dr. Gann who agreed to accept the patient to his service. Results of the workup including any imaging and/or labwork was shared with the patient at bedside. Patient was given an opportunity to ask questions at bedside and all of their concerns were addressed. Patient verbalized understanding and agreement with plan of care. Pt remained stable while in the department. - Medical Records Medical records reviewed: Yes I reviewed the patient's medical records. - Lab Data Lab results reviewed: Yes I reviewed the patient's lab results. Result diagrams: 09/29/18 19:36 09/29/18 19:36 Lab Results 09/29/18 09/29/18 09/29/18 Range/Units 19:36 19:36 19:36 WBC 14.9 H (4.3-11.1) K/mcL RBC 4.45 (4.19-5.50) M/mcL Hgb 13.7 D (12.9-16.9) g/dL Hct 40.9 (37.5-50.1) % MCV 91.9 (83.0-100.0) fL MCH 30.8 (28.0-33.3) pg MCHC 33.5 (31.6-35.5) g/dL RDW 14.3 (11.5-14.5) % Plt Count 383 (140-400) K/mcL MPV 8.9 L (9.4-12.4) fL Immature Gran % 2.6 (0-4) % Seg Neutrophils % 57.5 % Lymphocytes % 25.5 % Monocytes % 13.6 % Eosinophils % 0.5 % Basophils % 0.3 % Neutrophils # 8.5 (1.6-8.9) K/mcL Lymphocytes # 3.8 (0.6-4.6) K/mcL Monocytes # 2.0 H (0.0-1.3) K/mcL Eosinophils # 0.1 (0.0-0.6) K/mcL Basophils # 0.0 (0.0-0.2) K/mcL Nucleated RBCs/100 WBC 0.1 H (0) /100 WBC PT 36.3 H (9.4-12.1) Seconds INR 3.2 APTT 34.1 (26.0-36.0) Seconds Sodium (136-145) mEq/L Potassium (3.5-5.1) mEq/L Chloride (98-107) mEq/L Carbon Dioxide (23-29) mEq/L BUN (6-20) mg/dL Creatinine (0.70-1.30) mg/dL Est GFR ( Amer) (> 60) Est GFR (Non-Af Amer) (> 60) BUN/Creatinine Ratio (6-26) Glucose (70-105) mg/dL Calculated Osmolality (280-300) Calcium (8.6-10.3) mg/dL Creatine Kinase (30-223) Units/L Troponin I (< 0.04) ng/mL B-Natriuretic Peptide 104 H (Less than 100) pg/mL Urine Color (Yellow) Urine Clarity (Clear) Urine pH (5.0-8.0) pH Units Ur Specific Tow (1.010-1.025) Urine Protein (Neg-Trace) mg/dL Urine Glucose (UA) (Normal) mg/dL Urine Ketones (Negative) mg/dL Urine Blood (Negative) Urine Nitrite (Negative) Urine Bilirubin (Negative) Urine Urobilinogen (Normal) mg/dL Ur Leukocyte Esterase (Negative) Ur Culture Indicated? (NO) 09/29/18 09/29/18 09/29/18 Range/Units 19:36 19:36 19:59 WBC (4.3-11.1) K/mcL RBC (4.19-5.50) M/mcL Hgb (12.9-16.9) g/dL Hct (37.5-50.1) % MCV (83.0-100.0) fL MCH (28.0-33.3) pg MCHC (31.6-35.5) g/dL RDW (11.5-14.5) % Plt Count (140-400) K/mcL MPV (9.4-12.4) fL Immature Gran % (0-4) % Seg Neutrophils % % Lymphocytes % % Monocytes % % Eosinophils % % Basophils % % Neutrophils # (1.6-8.9) K/mcL Lymphocytes # (0.6-4.6) K/mcL Monocytes # (0.0-1.3) K/mcL Eosinophils # (0.0-0.6) K/mcL Basophils # (0.0-0.2) K/mcL Nucleated RBCs/100 WBC (0) /100 WBC PT (9.4-12.1) Seconds INR APTT (26.0-36.0) Seconds Sodium 141 (136-145) mEq/L Potassium 3.4 L (3.5-5.1) mEq/L Chloride 100 (98-107) mEq/L Carbon Dioxide 30 H (23-29) mEq/L BUN 18 (6-20) mg/dL Creatinine 1.04 (0.70-1.30) mg/dL Est GFR ( Amer) > 60 (> 60) Est GFR (Non-Af Amer) > 60 (> 60) BUN/Creatinine Ratio 17 (6-26) Glucose 107 H (70-105) mg/dL Calculated Osmolality 294 (280-300) Calcium 9.4 (8.6-10.3) mg/dL Creatine Kinase 17 L (30-223) Units/L Troponin I < 0.03 (< 0.04) ng/mL B-Natriuretic Peptide (Less than 100) pg/mL Urine Color Yellow (Yellow) Urine Clarity Clear (Clear) Urine pH 7.0 (5.0-8.0) pH Units Ur Specific Tow 1.008 L (1.010-1.025) Urine Protein Negative (Neg-Trace) mg/dL Urine Glucose (UA) Normal (Normal) mg/dL Urine Ketones Negative (Negative) mg/dL Urine Blood Negative (Negative) Urine Nitrite Negative (Negative) Urine Bilirubin Negative (Negative) Urine Urobilinogen Normal (Normal) mg/dL Ur Leukocyte Esterase Negative (Negative) Ur Culture Indicated? NO (NO) - Radiology Data Radiology results reviewed: Yes I reviewed the patient's radiology results. Chest X-Ray 09/29/18 19:01 IMPRESSION: Stable appearance of the chest with no acute finding. D/ / Hieu Hardy MD / Hieu Hardy MD Interpreting Provider: Hieu Hardy MD - EKG Data EKG attestation: Yes I reviewed and interpreted this EKG. EKG results narrative: Heart rate 69, sinus, axis normal. Intervals within normal limits. No ST elevation or depression. No WPW no Brugada.
[2018-09-29 19:57] LABS: Basophils % 0.3 %; Eosinophils # 0.1 K/mcL (0.0-0.6); Eosinophils % 0.5 %; Hematocrit 40.9 % (37.5-50.1); Immature Granulocytes % 2.6 % (0-4); Lymphocytes # 3.8 K/mcL (0.6-4.6); Lymphocytes % 25.5 %; Mean Corpuscular HGB Conc 33.5 g/dL (31.6-35.5); Mean Corpuscular Hemoglobin 30.8 pg (28.0-33.3); Mean Corpuscular Volume 91.9 fL (83.0-100.0); Mean Platelet Volume 8.9 fL (9.4-12.4); Monocytes % 13.6 %; Neutrophils # 8.5 K/mcL (1.6-8.9); Nucleated Red Blood Cells 0.1 /100 WBC (0); Platelet Count 383 K/mcL (140-400); Red Blood Count 4.45 M/mcL (4.19-5.50); Red Cell Distribution Width 14.3 % (11.5-14.5); Segmented Neutrophils % 57.5 %; White Blood Count 14.9 K/mcL (4.3-11.1)
[2018-09-29 20:01] LABS: Hemoglobin 13.7 g/dL (12.9-16.9)
[2018-09-29 20:06] LABS: INR 3.2; Prothrombin Time 36.3 Seconds (9.4-12.1)
[2018-09-29 20:14] LABS: Activated Partial Thrombo Time 34.1 Seconds (26.0-36.0)
[2018-09-29 20:17] LABS: BUN/Creatinine Ratio 17 (6-26); Blood Urea Nitrogen 18 mg/dL (6-20); Calcium 9.4 mg/dL (8.6-10.3); Carbon Dioxide 30 mEq/L (23-29); Chloride 100 mEq/L (98-107); Glucose 107 mg/dL (70-105); Osmolality,Calculated 294 (280-300); Potassium 3.4 mEq/L (3.5-5.1); Sodium 141 mEq/L (136-145); Troponin I < 0.03 ng/mL (< 0.04); eGFR For African Americans > 60 (> 60); eGFR For Non-African Americans > 60 (> 60)
[2018-09-29 20:20] LABS: Bilirubin,Urine Negative (Negative); Blood,Urine Negative (Negative); Clarity,Urine Clear (Clear); Color,Urine Yellow (Yellow); Glucose,Urine (UA) Normal (Normal); Ketones,Urine Negative (Negative); Leukocyte Esterase,Urine Negative (Negative); Nitrite,Urine Negative (Negative); Protein,Urine Negative (Neg-Trace); Specific Gravity,Urine 1.008 (1.010-1.025); Urobilinogen,Urine Normal (Normal)
--- NOTE | 2018-09-29 20:22 | Emergency Department Note ---
Disposition Clinical Impression: Syncope Qualifiers: Syncope type: unspecified Qualified Code(s): R55 - Syncope and collapse Disposition: Admitted As Inpatient Referrals: Srinivas Pearce DO [Resident] - Forms: ED Satisfaction Letter Time of Disposition: 22:24 General Adult HPI - General Chief complaint: ED Syncope Stated complaint: Syncope / Head Injury Time Seen by Provider: 09/29/18 18:58 Source: patient Mode of arrival: private vehicle Limitations: no limitations - History of Present Illness Pain Scale: 8 - Related Data Home Medications Medication Instructions Recorded Confirmed Gabapentin [Neurontin] 300 mg PO TID 03/27/15 09/23/18 DULoxetine [Cymbalta] 30 mg PO HS 02/27/17 09/23/18 Atorvastatin [Lipitor] 10 mg PO HS 03/23/17 09/23/18 Lisinopril [Zestril] 20 mg PO 1800 03/23/17 09/23/18 ALPRAZolam [Xanax 1 MG Tablet] 1 mg PO BID PRN 04/17/17 09/23/18 Albuterol Sulfate [Proventil 2 puff IH Q4HR PRN 08/03/18 09/23/18 Inhaler] Levalbuterol Neb [Xopenex Neb] 1.25 mg IH Q6H PRN 08/03/18 09/23/18 Warfarin Sodium 5 mg PO SUMOTUWETHSA 08/03/18 09/23/18 Warfarin Sodium 7.5 mg PO FR 08/03/18 09/23/18 Tiotropium [place] [Spiriva 2 inh IH DAILY 09/23/18 09/23/18 Respimat] Previous Rx's Medication Instructions Recorded Metoprolol [Lopressor] 12.5 mg PO BID tablet 04/04/17 Tizanidine HCl [Zanaflex] 4 mg PO TID PRN #10 capsule 04/04/17 Furosemide [Lasix] 40 mg PO BID #60 tablet 04/05/17 Acetylcysteine 10% 2 ml IH Q4H PRN #10 inhsol 09/26/18 Azithromycin [Zithromax] 500 mg PO DAILY #4 tablet 09/26/18 HYDROcodone/Acet 5/325 mg [[place] 1 tab PO Q4HR PRN 5 Days #20 tablet 09/26/18 5-325 mg] predniSONE [PredniSONE] 10 mg PO DAILY #20 tablet 09/26/18 Allergies Allergy/AdvReac Type Severity Reaction Status Date / Time No Known Allergies Allergy Verified 09/29/18 20:29 Past Medical History - Past Medical History Medical history: Reports: COPD, DVT, hypertension, pulmonary embolus, TIA, other Surgical history: Reports: IVC Filter, vasectomy Psychiatric history: Reports: anxiety, depression - Social History Smoking Status: Former smoker Smokeless Tobacco Status: Yes Alcohol use: Reports: none Drug use: Reports: none Physical Exam - General Limitations: no limitations General appearance: alert, anxious Course Vital Signs Temperature 97.6 F 09/29/18 18:46 Pulse Rate 72 09/29/18 18:46 Respiratory Rate 20 09/29/18 18:46 Blood Pressure 115/78 09/29/18 18:46 O2 Sat by Pulse Oximetry 97 09/29/18 18:46 Temperature 98.2 F 09/29/18 19:33 Pulse Rate 59 09/29/18 21:42 Respiratory Rate 18 09/29/18 21:42 Blood Pressure 131/90 09/29/18 21:42 O2 Sat by Pulse Oximetry 99 09/29/18 21:42 Oxygen Delivery Oxygen Delivery Nasal Cannula Medical Decision Making - Lab Data Result diagrams: 09/29/18 19:36 09/29/18 19:36 Lab Results 09/29/18 09/29/18 09/29/18 Range/Units 19:36 19:36 19:36 WBC 14.9 H (4.3-11.1) K/mcL RBC 4.45 (4.19-5.50) M/mcL Hgb 13.7 D (12.9-16.9) g/dL Hct 40.9 (37.5-50.1) % MCV 91.9 (83.0-100.0) fL MCH 30.8 (28.0-33.3) pg MCHC 33.5 (31.6-35.5) g/dL RDW 14.3 (11.5-14.5) % Plt Count 383 (140-400) K/mcL MPV 8.9 L (9.4-12.4) fL Immature Gran % 2.6 (0-4) % Seg Neutrophils % 57.5 % Lymphocytes % 25.5 % Monocytes % 13.6 % Eosinophils % 0.5 % Basophils % 0.3 % Neutrophils # 8.5 (1.6-8.9) K/mcL Lymphocytes # 3.8 (0.6-4.6) K/mcL Monocytes # 2.0 H (0.0-1.3) K/mcL Eosinophils # 0.1 (0.0-0.6) K/mcL Basophils # 0.0 (0.0-0.2) K/mcL Nucleated RBCs/100 WBC 0.1 H (0) /100 WBC PT 36.3 H (9.4-12.1) Seconds INR 3.2 APTT 34.1 (26.0-36.0) Seconds Sodium (136-145) mEq/L Potassium (3.5-5.1) mEq/L Chloride (98-107) mEq/L Carbon Dioxide (23-29) mEq/L BUN (6-20) mg/dL Creatinine (0.70-1.30) mg/dL Est GFR ( Amer) (> 60) Est GFR (Non-Af Amer) (> 60) BUN/Creatinine Ratio (6-26) Glucose (70-105) mg/dL Calculated Osmolality (280-300) Calcium (8.6-10.3) mg/dL Creatine Kinase (30-223) Units/L Troponin I (< 0.04) ng/mL B-Natriuretic Peptide 104 H (Less than 100) pg/mL Urine Color (Yellow) Urine Clarity (Clear) Urine pH (5.0-8.0) pH Units Ur Specific [place] (1.010-1.025) Urine Protein (Neg-Trace) mg/dL Urine Glucose (UA) (Normal) mg/dL Urine Ketones (Negative) mg/dL Urine Blood (Negative) Urine Nitrite (Negative) Urine Bilirubin (Negative) Urine Urobilinogen (Normal) mg/dL Ur Leukocyte Esterase (Negative) Ur Culture Indicated? (NO) 09/29/18 09/29/18 09/29/18 Range/Units 19:36 19:36 19:59 WBC (4.3-11.1) K/mcL RBC (4.19-5.50) M/mcL Hgb (12.9-16.9) g/dL Hct (37.5-50.1) % MCV (83.0-100.0) fL MCH (28.0-33.3) pg MCHC (31.6-35.5) g/dL RDW (11.5-14.5) % Plt Count (140-400) K/mcL MPV (9.4-12.4) fL Immature Gran % (0-4) % Seg Neutrophils % % Lymphocytes % % Monocytes % % Eosinophils % % Basophils % % Neutrophils # (1.6-8.9) K/mcL Lymphocytes # (0.6-4.6) K/mcL Monocytes # (0.0-1.3) K/mcL Eosinophils # (0.0-0.6) K/mcL Basophils # (0.0-0.2) K/mcL Nucleated RBCs/100 WBC (0) /100 WBC PT (9.4-12.1) Seconds INR APTT (26.0-36.0) Seconds Sodium 141 (136-145) mEq/L Potassium 3.4 L (3.5-5.1) mEq/L Chloride 100 (98-107) mEq/L Carbon Dioxide 30 H (23-29) mEq/L BUN 18 (6-20) mg/dL Creatinine 1.04 (0.70-1.30) mg/dL Est GFR ( Amer) > 60 (> 60) Est GFR (Non-Af Amer) > 60 (> 60) BUN/Creatinine Ratio 17 (6-26) Glucose 107 H (70-105) mg/dL Calculated Osmolality 294 (280-300) Calcium 9.4 (8.6-10.3) mg/dL Creatine Kinase 17 L (30-223) Units/L Troponin I < 0.03 (< 0.04) ng/mL B-Natriuretic Peptide (Less than 100) pg/mL Urine Color Yellow (Yellow) Urine Clarity Clear (Clear) Urine pH 7.0 (5.0-8.0) pH Units Ur Specific [place] 1.008 L (1.010-1.025) Urine Protein Negative (Neg-Trace) mg/dL Urine Glucose (UA) Normal (Normal) mg/dL Urine Ketones Negative (Negative) mg/dL Urine Blood Negative (Negative) Urine Nitrite Negative (Negative) Urine Bilirubin Negative (Negative) Urine Urobilinogen Normal (Normal) mg/dL Ur Leukocyte Esterase Negative (Negative) Ur Culture Indicated? NO (NO) Attestation Statement - Attestation Attestation: I examined this patient and my medical decision-making was reviewed with the Resident Physician. I agree with the documented findings, disposition and treatment plan as described except to the extent set forth below. Patient presents to the ED with chief complaint of a syncopal episode. Patient having dizziness or syncopal episodes for a couple weeks. Today he felt dizzy and fell backwards and lost consciousness. Feels better now. Recent admission for COPD exacerbation. On exam he is in no distress. Awake alert and appropriate. Heart regular lungs are clear. Plan. EKG reviewed with the resident. Cardiac workup. Head CT as he did fall backwards and hit his head and hurt his neck.: Imaging is unremarkable. His crit at work was unremarkable. Is unclear what is making him dizzy and syncopal. Will be admitted for monitoring. Patient admitted to medicine. Chest X-Ray 09/29/18 19:01 IMPRESSION: Stable appearance of the chest with no acute finding. D/ / Hieu Hardy MD / Hieu Hardy MD Interpreting Provider: Hieu Hardy MD Cervical Spine CT 09/29/18 19:03 IMPRESSION: No acute abnormality of the cervical spine. Straightened lordotic curvature, positional versus spasm. Mild degenerative changes as outlined above. D/ / Cheikh Zacarias MD / Cheikh Zacarias MD Interpreting Provider: Cheikh Zacarias MD Head CT 09/29/18 19:03 IMPRESSION: No acute intracranial abnormality. D/ / Cheikh Zacarias MD / Cheikh Zacarias MD Interpreting Provider: Cheikh Zacarias MD
[2018-09-29] MEDS ORDERED: *HR* OxyCODONE/APAP 5/325 TABLET PO ONE (21:19)
[2018-09-29] MEDS ORDERED: 0.9 % Sodium Chloride 1,000 ML IVC ONE (21:44)
[2018-09-29] MEDS ORDERED: Naloxone 0.4 MG/ML INJ IVP PRN (23:41)
--- NOTE | 2018-09-30 01:28 | Internal Med History&Physical ---
Date of Encounter: 09/29/18 Time of Encounter: 23:50 Internal Medicine - H&P: HPI Chief complaint: Syncope, head injury Admitted From: Emergency Dept Plans for Post Hospital Care: Home History of present illness: Mr. Oliva is a 58 year old male Patient presented to the emergency department after sustaining a fall at home striking his head on the ground. He has been experiencing syncopal episodes over the last couple of days, and on the day of his presentation he states that he has had for different episodes, the first episode occurring while he was going out to his car he did not fully pass out but he did go to the ground. He had 2 other episodes and finally had a fourth episode while he was putting some soft drinks in his freezer he started to fall backwards hitting his head on the ground and was unconscious for what he says was a few minutes. He woke up with the freezer door still open and pain in the back of his head and neck. Ambulance was summoned and patient was transported to the hospital. Emergency room patient's vital signs: After 97.6, pulse 72, heart rate 20, blood pressure 115/78, O2 sat 97% on room air CBC: Notable for white count of 14.9 (patient has been on prednisone since his discharge 3 days ago) BMP: Notable for potassium of 3.4 INR 3.2 Creatinine kinase 17 BNP 104 Initial troponin undetectable Urinalysis negative for infection EKG: Normal sinus rhythm, rate 69, no changes. Head CT: No acute intracranial abnormality Cervical spine CT: No acute abnormality Chest x-ray: Stable appearance of the chest with no acute finding. In the emergency room patient received 1 L of IV fluids, aspirin, nitroglycerin and Percocet. I discussed with the ER the appropriateness of admitting this patient to this hospital without appropriate neurosurgery backup in the event patient develops an intracranial hemorrhage considering his elevated INR of 3.2 from being on Coumadin. Despite my concerns and speaking with 3 separate ER physicians, I was forced to accept this admission. I did request that at least have the patient be made aware of the potential risks and make him aware of our lack of neurosurgery support. When I then evaluated the patient myself and discussed with him once again my concerns and his condition, the patient indicated that the emergency department did not discuss with him the risks of developing possible intracranial hemorrhage nor did they discussed with him the lack of neurosurgical support at this facility. After some thought, the patient agreed to stay at this hospital and said that in the event of a intracranial hemorrhage that we could just "play it by ear" and transfer him if necessary. I informed him that any delay in care could result in catastrophic and/or life- threatening consequences. The patient agreed to remain here and to undergo frequent neuro checks and close monitoring. Patient states that he continues to have a headache which has not improved since he initially presented. He had some chest pain earlier in the day but denies abdominal pain, nausea, vomiting, diarrhea and constipation. He further elaborates on his history of syncope. He passed out once about a week ago as well falling down onto his right shoulder. He had been reaching up to get a handle on from high in the cupboard, and he fell down. He did not hit his head at that time, and did not come to the emergency department afterwards. He was unconscious for about 1 minute according to his . She wanted to call an ambulance, but the patient refused. He has been feeling short of breath particularly with exertion. He is a full code. Past Med Surg Social Fam HX - Past Medical History Medical history: COPD, DVT, hypertension, pulmonary embolus, TIA, other Additional medical history: juan c filter. Factor 5 Psychiatric history: anxiety, depression - Past Surgical History Surgical History: IVC Filter, vasectomy Additional surgical history: PLACEMENT OF THE IVC FILTER. VASECTOMY - Social History Smoking Status: Former smoker Smokeless Tobacco Status: Yes Alcohol use: none Drug use: none - Family History Father Adopted: No Living Status: Hx Family Cardiac Disorders: Yes (PR) Hx Family Respiratory Disorders: Yes (copd, black lung) Hx Family Cancer: Yes (bladder ca) Hx Family GI Disorders: No Mother Adopted: No Living Status: Still Living Hx Family Respiratory Disorders: Yes (copd) Hx Family Cancer: Yes Hx Family GI Disorders: Yes (colon) Internal Medicine - H&P: Meds Gabapentin [Neurontin] 300 mg PO TID 03/27/15 [History] DULoxetine [Cymbalta] 30 mg PO HS 02/27/17 [History] Atorvastatin [Lipitor] 10 mg PO HS 03/23/17 [History] Lisinopril [Zestril] 20 mg PO 1800 03/23/17 [History] Metoprolol [Lopressor] 12.5 mg PO BID tablet 04/04/17 [Rx] Tizanidine HCl [Zanaflex] 4 mg PO TID PRN #10 capsule 04/04/17 [Rx] Furosemide [Lasix] 40 mg PO BID #60 tablet 04/05/17 [Rx] ALPRAZolam [Xanax 1 MG Tablet] 1 mg PO BID PRN 04/17/17 [History] Albuterol Sulfate [Proventil Inhaler] 2 puff IH Q4HR PRN 08/03/18 [History] Levalbuterol Neb [Xopenex Neb] 1.25 mg IH Q6H PRN 08/03/18 [History] Warfarin Sodium 5 mg PO SUMOTUWETHSA 08/03/18 [History] Warfarin Sodium 7.5 mg PO FR 08/03/18 [History] Tiotropium [place] [Spiriva Respimat] 2 inh IH DAILY 09/23/18 [History] Acetylcysteine 10% 2 ml IH Q4H PRN #10 inhsol 09/26/18 [Rx] Azithromycin [Zithromax] 500 mg PO DAILY #4 tablet 09/26/18 [Rx] HYDROcodone/Acet 5/325 mg [[place] 5-325 mg] 1 tab PO Q4HR PRN 5 Days #20 tablet 09/26/18 [Rx] predniSONE [PredniSONE] 10 mg PO DAILY #20 tablet 09/26/18 [Rx] 3 Allergy/AdvReac Type Severity Reaction Status Date / Time No Known Allergies Allergy Verified 09/29/18 20:29 All Systems PM: A 10-system review of systems was performed and is negative for pertinent findings except as documented above in the HPI. - Constitutional Vitals: Temp Pulse Resp BP Pulse Ox 98.3 F 57 16 159/98 98 09/29/18 23:13 09/29/18 23:13 09/29/18 23:13 09/29/18 23:13 09/29/18 23:13 General appearance: Present: cooperative, A&O X 3, pleasant, no acute distress, answers questions appropriately Exam: Patient in no acute distress, still experiencing some headache. - Expanded Head Exam Head exam expanded: Present: general tenderness. Absent: abrasion, hematoma, laceration 1 - Tenderness with palpation - Eye Eye exam: Present: EOMI, normal appearance, nystagmus Additional comments: Horizontal nystagmus - Neck Neck exam general surgery: Present: full ROM, tenderness Additional comments: Upper posterior neck pain with palpation, pain with movement. - Respiratory Respiratory exam: Present: wheezes. Absent: CTAB, rales, respiratory distress, rhonchi - Cardiovascular Cardiovascular exam: Present: RRR. Absent: diastolic murmur, systolic murmur - GI/Abdominal GI/Abdominal exam: Present: normal bowel sounds, soft. Absent: tenderness - Extremities Exam Extremities exam: Present: warm, radial pulses palpable and symmetrical. Absent: calf tenderness, pedal edema, tenderness - Neurological Exam Neurological exam: Present: no focal deficits, strengths equal and symetr throughout. Absent: motor sensory deficit, facial droop, speech deficit - Skin Skin exam: Present: dry, normal color, warm Internal Med - H&P Results - Labs CBC & Chem 7: 09/29/18 19:36 09/29/18 19:36 Labs: Short CBC 09/29/18 Range/Units 19:36 WBC 14.9 H (4.3-11.1) K/mcL Hgb 13.7 D (12.9-16.9) g/dL Hct 40.9 (37.5-50.1) % Plt Count 383 (140-400) K/mcL Neutrophils # 8.5 (1.6-8.9) K/mcL BMP 09/29/18 19:36 Sodium 141 Potassium 3.4 L Chloride 100 Carbon Dioxide 30 H BUN 18 Creatinine 1.04 Glucose 107 H Calcium 9.4 Cardiac Enzymes 09/29/18 Range/Units 19:36 Troponin I < 0.03 (< 0.04) ng/mL Urine 09/29/18 Range/Units 19:59 Urine Color Yellow (Yellow) Urine Clarity Clear (Clear) Urine pH 7.0 (5.0-8.0) pH Units Ur Specific [place] 1.008 L (1.010-1.025) Urine Protein Negative (Neg-Trace) mg/dL Urine Glucose (UA) Normal (Normal) mg/dL - Impressions ITS Impressions Chest X-Ray 09/29/18 19:01 IMPRESSION: Stable appearance of the chest with no acute finding. D/ / Hieu Hardy MD / Hieu Hardy MD Interpreting Provider: Hieu Hardy MD Cervical Spine CT 09/29/18 19:03 IMPRESSION: No acute abnormality of the cervical spine. Straightened lordotic curvature, positional versus spasm. Mild degenerative changes as outlined above. D/ / Cheikh Zacarias MD / Cheikh Zacarias MD Interpreting Provider: Cheikh Zacarias MD Head CT 09/29/18 19:03 IMPRESSION: No acute intracranial abnormality. D/ / Cheikh Zacarias MD / Cheikh Zacarias MD Interpreting Provider: Cheikh Zacarias MD - Assessment and Plan (1) Head injury due to trauma Current Visit: Yes Status: Acute Assessment and plan: Patient presented to the emergency department after sustaining a fall, resulting in a head injury. Patient is on Coumadin, and has a elevated INR at 3.2. CT had initially negative. Discussed with patient as indicated above. Fall secondary to syncopal episode. Continue to monitor with frequent neuro checks Cardiac monitoring Repeat head CT in the morning Will require urgent transfer in the event patient develops an intracranial hemorrhage. Qualifiers: Encounter type: initial encounter Qualified Code(s): S09.90XA - Unspecified injury of head, initial encounter (2) Syncope Current Visit: Yes Status: Acute Assessment and plan: Patient has had multiple syncopal episodes over the last few days. He has had 4 episodes just on the day of his presentation to the ER alone, the fourth 1 resulting in the head injury as described above. His episodes seem to be related to exertion and possibly lifting his arms above his head or lifting heavy objects. Patient describes dizzy sensation prior to the episodes. He did have horizontal nystagmus on exam. He was recently admitted to the hospital as well for chest pain and difficulty breathing. Patient's symptoms could be cardiac in nature, during his previous admission he was recommended to have an outpatient stress test performed. Potentially this could be done some point during his current admission. Patient takes multiple medications at home that could cause syncope including Xanax, [place], tizanidine, lisinopril, Lasix and Lopressor. We will hold these medicines for now. Cardiac monitoring Repeat echocardiogram in the morning PT OT consultation IV hydration Orthostatic vital signs Qualifiers: Syncope type: unspecified Qualified Code(s): R55 - Syncope and collapse (3) Chest pain Current Visit: No Status: Acute Assessment and plan: Patient has had chest pain, which was relieved with nitroglycerin in the emergency department. Initial troponin negative, EKG no ischemic changes. Chest x-ray improved from previous. 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 Qualifiers: Chest pain type: unspecified Qualified Code(s): R07.9 - Chest pain, unspecified (4) Shortness of breath Current Visit: Yes Status: Acute Assessment and plan: Patient is been feeling short of breath, recently treated for pneumonia and COPD exacerbation previously here in the hospital. Breathing treatments By mouth steroids IV azithromycin Oxygen supplementation as needed (5) History of pulmonary embolism Current Visit: No Status: Chronic Assessment and plan: Patient on coumadin (6) Subtherapeutic international normalized ratio (INR) Current Visit: No Status: Resolved Assessment and plan: INR 3.2, will continue coumadin, pharmacy to dose. (7) DVT prophylaxis Current Visit: No Status: Acute Assessment and plan: Continue Coumadin Pharmacy to dose - Time Spent With Patient Total time spent is greater than 50% in coordination of care (as documented) at patient's floor/unit and/or counseling patient: Greater than 35 minutes
[2018-09-30] MEDS ORDERED: Acetaminophen 325 MG TABLET PO PRN (01:31)
[2018-09-30] MEDS ORDERED: Ibuprofen 400 MG TABLET PO PRN (01:31)
[2018-09-30] MEDS ORDERED: Albuterol 2.5 MG/3 ML NEBULIZER IH PRN (01:43)
[2018-09-30] MEDS ORDERED: Ipratropium/Albuterol Neb 3 ML ONE (02:59)
[2018-09-30] MEDS ORDERED: Azithromycin 500 MG in D5% in Water 250 ML IVPB SCH (03:00)
[2018-09-30] MEDS: Ipratropium/Albuterol Neb 3 ML IH SCH ×5 (03:06→20:59)
[2018-09-30] MEDS: Ketorolac 15 MG/ML VIAL IVP PRN ×3 (03:33→18:01)
[2018-09-30 04:22] LABS: Hematocrit 39.7 % (37.5-50.1); Mean Corpuscular HGB Conc 32.7 g/dL (31.6-35.5); Mean Corpuscular Hemoglobin 31.4 pg (28.0-33.3); Mean Corpuscular Volume 95.9 fL (83.0-100.0); Mean Platelet Volume 9.2 fL (9.4-12.4); Platelet Count 342 K/mcL (140-400); Red Blood Count 4.14 M/mcL (4.19-5.50); Red Cell Distribution Width 14.6 % (11.5-14.5); White Blood Count 10.3 K/mcL (4.3-11.1)
[2018-09-30 04:27] LABS: INR 3.7
[2018-09-30 04:42] LABS: BUN/Creatinine Ratio 16 (6-26); Blood Urea Nitrogen 19 mg/dL (6-20); Calcium 8.8 mg/dL (8.6-10.3); Carbon Dioxide 32 mEq/L (23-29); Chloride 99 mEq/L (98-107); Glucose 158 mg/dL (70-105); Osmolality,Calculated 296 (280-300); Potassium 3.5 mEq/L (3.5-5.1); Sodium 140 mEq/L (136-145); eGFR For African Americans > 60 (> 60); eGFR For Non-African Americans > 60 (> 60)
[2018-09-30] MEDS: predniSONE 20 MG TABLET PO SCH (08:11)
--- NOTE | 2018-09-30 11:55 | Internal Med Progress Note ---
Hospitalist Progress Note - Encounter Date of Encounter: 09/30/18 Time of Encounter: 11:53 - Subjective Interval History: Evaluated patient earlier today. Reports that he has been having episodes of dizziness especially with standing up over the past month. He has not been up today. Does not have any dizziness while lying down. Denies any headache or vision changes. - Exam Vitals: Temp Pulse Resp BP Pulse Ox 97.6 F 61 18 120/77 94 09/30/18 07:51 09/30/18 07:51 09/30/18 10:49 09/30/18 07:51 09/30/18 10:49 Exam: General: Patient is alert, mild distress, oriented x 3, obese Respiratory: Prolonged expiratory phase, minimal wheezing bilaterally Cardiovascular: Regular rate and rhythm. s1 and s2 normal No clicks, rubs, gallops, or murmurs. No pedal edema Abdomen: Abdomen is soft, nontender. Bowel sounds are present Musculoskeletal: Spontaneously moving all extremities Skin: warm, dry, intact. Neuro: Alert oriented x 3 normal cranial nerves, no focal deficits - Assessment and Plan (1) Syncope Current Visit: Yes Status: Acute (2) Head injury due to trauma Current Visit: Yes Status: Acute (3) History of pulmonary embolism Current Visit: Yes Status: Chronic (4) DVT prophylaxis Current Visit: Yes Status: Acute (5) Chest pain Current Visit: No Status: Chronic (6) Subtherapeutic international normalized ratio (INR) Current Visit: No Status: Resolved (7) Chronic hypoxemic respiratory failure Current Visit: Yes Status: Chronic (8) COPD (chronic obstructive pulmonary disease) Current Visit: Yes Status: Chronic DVT Prophylaxis: On Coumadin. - Summary of Assessment and Plan Summary of Assessment and Plan: Syncope: Patient reporting episodes of orthostasis and syncope resulting in a fall and head injury. Orthostatics checked overnight. Patient does have a steady decline in blood pressure while getting up to a sitting position from lying down but it improves when he stands. We will continue to monitor. He may benefit from wearing compression stockings. Chronic chest pain: We will arrange for outpatient follow-up with cardiology per their recommendations during most recent visit. COPD: No indication for antibiotics at this time. Continue prednisone. Continue bronchodilators as needed. Chronic pain: Patient takes [place] at home and is requesting this medication at this time. We will resume it if his blood pressure remains good. Fall resulting in head injury: Patient on chronic Coumadin therapy so repeat CT scan has been ordered. Will follow results on since done. Patient does not exhibit any signs of acute intracranial hemorrhage at this time. Chronic respiratory failure with hypoxia: Continue O2 supplementation. History of PE on chronic anticoagulation: Continue Coumadin for now. - Time Spent with Patient Total time spent is greater than 50% in coordination of care (as documented) at patient's floor/unit and/or counseling patient: Internal Medicine: Result - Labs CBC & Chem 7: 09/30/18 02:47 09/30/18 02:47 Labs: Short CBC 09/29/18 09/30/18 Range/Units 19:36 02:47 WBC 14.9 H 10.3 (4.3-11.1) K/mcL Hgb 13.7 D 13.0 (12.9-16.9) g/dL Hct 40.9 39.7 (37.5-50.1) % Plt Count 383 342 (140-400) K/mcL Neutrophils # 8.5 (1.6-8.9) K/mcL BMP 09/29/18 09/30/18 19:36 02:47 Sodium 141 140 Potassium 3.4 L 3.5 Chloride 100 99 Carbon Dioxide 30 H 32 H BUN 18 19 Creatinine 1.04 1.20 Glucose 107 H 158 H Calcium 9.4 8.8 Cardiac Enzymes 09/29/18 09/30/18 09/30/18 Range/Units 19:36 02:47 09:00 Troponin I < 0.03 < 0.03 < 0.03 (< 0.04) ng/mL Urine 09/29/18 Range/Units 19:59 Urine Color Yellow (Yellow) Urine Clarity Clear (Clear) Urine pH 7.0 (5.0-8.0) pH Units Ur Specific [place] 1.008 L (1.010-1.025) Urine Protein Negative (Neg-Trace) mg/dL Urine Glucose (UA) Normal (Normal) mg/dL - ABG Interpretation ABG results: PT/INR, D-dimer PT 42.0 Seconds (9.4-12.1) H 09/30/18 02:47 - Impressions Impressions Chest X-Ray 09/29/18 19:01 IMPRESSION: Stable appearance of the chest with no acute finding. D/ / Hieu Hardy MD / Hieu Hardy MD Interpreting Provider: Hieu Hardy MD Cervical Spine CT 09/29/18 19:03 IMPRESSION: No acute abnormality of the cervical spine. Straightened lordotic curvature, positional versus spasm. Mild degenerative changes as outlined above. D/ / Cheikh Zacarias MD / Cheikh Zacarias MD Interpreting Provider: Cheikh Zacarias MD Head CT 09/29/18 19:03 IMPRESSION: No acute intracranial abnormality. D/ / Cheikh Zacarias MD / Cheikh Zacarias MD Interpreting Provider: Cheikh Zacarias MD Consult Discharge Plan - Plan Referrals: Srinivas Pearce DO [Primary Care Provider] - (1) Syncope Qualifiers: Syncope type: unspecified Qualified Code(s): R55 - Syncope and collapse (2) Head injury due to trauma Qualifiers: Encounter type: initial encounter Qualified Code(s): S09.90XA - Unspecified injury of head, initial encounter (5) Chest pain Qualifiers: Chest pain type: unspecified Qualified Code(s): R07.9 - Chest pain, unspecified (8) COPD (chronic obstructive pulmonary disease) Qualifiers: COPD type: chronic bronchitis Chronic bronchitis type: unspecified Qualified Code(s): J42 - Unspecified chronic bronchitis
[2018-09-30] MEDS ORDERED: Levalbuterol Neb 1.25 MG/3 ML IH PRN (12:10)
[2018-09-30] MEDS ORDERED: Acetylcysteine 10% 2 ML INHSOL IH PRN (12:10)
[2018-09-30] MEDS: *HR* HYDROcodone/Acet 5/325 mg TABLET PO PRN ×2 (14:28→21:38)
[2018-09-30] MEDS: Gabapentin 300 MG CAPSULE PO SCH ×2 (14:28→21:38)
[2018-09-30] MEDS: ALPRAZolam 1 MG TABLET PO PRN ×2 (14:29→23:01)
[2018-09-30] MEDS: Lisinopril 20 MG TABLET PO SCH (17:55)
[2018-09-30] MEDS ORDERED: Warfarin perPT PO PRN (18:00)
[2018-09-30] MEDS: Budesonide/Formoterol 160/4.5 1 PUFF INH IH SCH (20:59)
[2018-10-01] MEDS: *HR* HYDROcodone/Acet 5/325 mg TABLET PO PRN ×3 (01:56→10:34)
[2018-10-01] MEDS: Ipratropium/Albuterol Neb 3 ML IH SCH ×4 (03:52→22:49)
[2018-10-01] MEDS: Ketorolac 15 MG/ML VIAL IVP PRN ×3 (04:35→18:33)
[2018-10-01] MEDS ORDERED: Chloraseptic Spray 177 ML BOTTLE MM PRN (05:02)
[2018-10-01 05:10] LABS: Basophils # 0.1 K/mcL (0.0-0.2); Basophils % 0.4 %; Eosinophils # 0.1 K/mcL (0.0-0.6); Eosinophils % 0.4 %; Hematocrit 36.2 % (37.5-50.1); Hemoglobin 11.7 g/dL (12.9-16.9); Immature Granulocytes % 2.8 % (0-4); Lymphocytes # 2.9 K/mcL (0.6-4.6); Lymphocytes % 21.1 %; Mean Corpuscular HGB Conc 32.3 g/dL (31.6-35.5); Mean Corpuscular Hemoglobin 30.7 pg (28.0-33.3); Mean Platelet Volume 9.1 fL (9.4-12.4); Monocytes # 1.4 K/mcL (0.0-1.3); Monocytes % 10.3 %; Neutrophils # 9.1 K/mcL (1.6-8.9); Platelet Count 325 K/mcL (140-400); Red Blood Count 3.81 M/mcL (4.19-5.50); Red Cell Distribution Width 14.7 % (11.5-14.5); White Blood Count 13.9 K/mcL (4.3-11.1)
[2018-10-01] MEDS: ALPRAZolam 1 MG TABLET PO PRN ×2 (05:13→21:39)
[2018-10-01 05:26] LABS: Calcium 8.8 mg/dL (8.6-10.3); Potassium 3.9 mEq/L (3.5-5.1)
[2018-10-01] MEDS: Gabapentin 300 MG CAPSULE PO SCH ×3 (08:41→20:40)
[2018-10-01] MEDS: predniSONE 20 MG TABLET PO SCH (08:41)
[2018-10-01] MEDS ORDERED: TIOTROPIUM BROMIDE IH SCH (09:00)
[2018-10-01] MEDS: Budesonide/Formoterol 160/4.5 1 PUFF INH IH SCH ×2 (10:37→22:49)
[2018-10-01] MEDS: *HR* HYDROcodone/Acet 7.5/325 mg TABLET PO PRN ×2 (15:25→21:39)
--- NOTE | 2018-10-01 15:35 | Internal Med Progress Note ---
Hospitalist Progress Note - Encounter Date of Encounter: 10/01/18 Time of Encounter: 11:50 - Subjective Interval History: Mr. Oliva is a 58 y/o M with known past medical history of COPD, DVT, HTN, PE s/p IVC filter, and TIA pt presented to ER with frequent syncopal episodes at home associated with the fall striking his head on the ground. 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 He still feeling weak, dizzy and lightheadedness. He denied any CP. No more syncopal episodes since he got admitted in the hospital. - Exam Vitals: Temp Pulse Resp BP Pulse Ox 98.1 F 83 16 124/71 97 10/01/18 11:37 10/01/18 11:37 10/01/18 11:37 10/01/18 11:37 10/01/18 11:37 Exam: Gen: Alert, awake, Oriented to time,place and person Chest: Diminished breath sounds B/L, No wheezing, No crackles, No rales Heart: S1S2+ RRR No murmurs Abd: Soft, NT, BS +, No organomegaly Ext: No edema, pulses are palpable, No calf tenderness Neuro : No acute focal neuro deficits noticed Skin: No rash. - Assessment and Plan (1) Syncope Current Visit: Yes Status: Acute Assessment and Plan: He does have multiple syncopal episodes concerning for POTS Cont daily ortho stat vitals will talk to card for further work up may get benefit with holter monitor PT / OT eval reviewed limited Echo - Preserved LVEF, No septal , wall motion abnormalities noticed (2) Chest pain Current Visit: No Status: Chronic Assessment and Plan: Patient has had chest pain, which was relieved with nitroglycerin in the emergency department He was recently admitted here with CP and elevated troponin, Card did evaluate him and recommend out pt stress test However with his current frequent syncopal episodes , he definitely need ischemic work up So ordered stress test cont ASA, Metoprolol and Lisinopril (3) COPD (chronic obstructive pulmonary disease) Current Visit: Yes Status: Chronic Assessment and Plan: He does have moderate COPD exacerbation does have moderate wheezing continue systemic steroids prednisone continue frequent bronchodilator therapy he does have chronic hypoxic respiratory failure uses 3 lit oxygen at home currently he is on 3 lit oxygen (4) History of pulmonary embolism Current Visit: Yes Status: Chronic Assessment and Plan: Patient on coumadin INR @ 3.7 (5) DVT prophylaxis Current Visit: Yes Status: Acute Assessment and Plan: Continue Coumadin Pharmacy to dose (6) Subtherapeutic international normalized ratio (INR) Current Visit: No Status: Resolved Assessment and Plan: INR 3.7, will continue coumadin, pharmacy to dose. (7) Chronic hypoxemic respiratory failure Current Visit: Yes Status: Chronic (8) Head injury due to trauma Current Visit: Yes Status: Acute Assessment and Plan: Head CT - from 09/29 - No acute ICH repeat Head CT from 09/30- No ICH fall risk cont close monitoring - Time Spent with Patient Total time spent is greater than 50% in coordination of care (as documented) at patient's floor/unit and/or counseling patient: Internal Medicine: Result - Labs CBC & Chem 7: 10/01/18 04:20 10/01/18 04:20 Labs: Short CBC 10/01/18 Range/Units 04:20 WBC 13.9 H (4.3-11.1) K/mcL Hgb 11.7 L (12.9-16.9) g/dL Hct 36.2 L (37.5-50.1) % Plt Count 325 (140-400) K/mcL Neutrophils # 9.1 H (1.6-8.9) K/mcL BMP 10/01/18 04:20 Sodium 139 Potassium 3.9 Chloride 99 Carbon Dioxide 32 H BUN 26 H Creatinine 1.47 H Glucose 166 H Calcium 8.8 - ABG Interpretation ABG results: PT/INR, D-dimer PT 42.0 Seconds (9.4-12.1) H 09/30/18 02:47 - Impressions Impressions Echocardiogram Limited Views 10/01/18 02:29 Impressions: LVEF 60-65%. Normal LV chamber size, wall thickness and function. Left Ventricular Wall Motion: Rest Echo Findings All wall segments showed normal motion. Findings: Study Quality * Technically adequate exam. ECG Findings * Normal sinus rhythm. Left Ventricle * LVEF 60-65%. * Normal LV chamber size, wall thickness and function. Right Ventricle * Normal right ventricular structure and function. Aorta * Normally sized aortic root. Pericardium * The pericardium appears normal. IVC * Normal IVC dimensions and inspiratory collapse. Consult Discharge Plan - Plan Referrals: Srinivas Pearce DO [Primary Care Provider] - (1) Syncope Qualifiers: Syncope type: unspecified Qualified Code(s): R55 - Syncope and collapse (2) Chest pain Qualifiers: Chest pain type: unspecified Qualified Code(s): R07.9 - Chest pain, unspecified (3) COPD (chronic obstructive pulmonary disease) Qualifiers: COPD type: chronic bronchitis Chronic bronchitis type: unspecified Qualified Code(s): J42 - Unspecified chronic bronchitis (8) Head injury due to trauma Qualifiers: Encounter type: initial encounter Qualified Code(s): S09.90XA - Unspecified injury of head, initial encounter
[2018-10-01] MEDS: Lisinopril 20 MG TABLET PO SCH (18:32)
[2018-10-02] MEDS: Ketorolac 15 MG/ML VIAL IVP PRN ×2 (00:56→09:30)
[2018-10-02] MEDS: Ipratropium/Albuterol Neb 3 ML IH SCH ×5 (04:11→23:55)
[2018-10-02] MEDS: ALPRAZolam 1 MG TABLET PO PRN ×2 (06:22→16:05)
[2018-10-02] MEDS: *HR* HYDROcodone/Acet 7.5/325 mg TABLET PO PRN ×3 (06:23→21:07)
[2018-10-02 07:55] LABS: INR 2.5
[2018-10-02] MEDS: Gabapentin 300 MG CAPSULE PO SCH ×3 (09:00→21:07)
[2018-10-02] MEDS ORDERED: Regadenoson 0.4 MG/5 ML SYRINGE IVP ONE (09:40)
[2018-10-02] MEDS: Tiotropium 18 MCG inhalation IH SCH (10:39)
[2018-10-02] MEDS: Budesonide/Formoterol 160/4.5 1 PUFF INH IH SCH ×2 (10:50→20:37)
--- NOTE | 2018-10-02 14:30 | Internal Med Progress Note ---
Hospitalist Progress Note - Encounter Date of Encounter: 10/02/18 Time of Encounter: 14:29 - Subjective Interval History: Mr. Oliva is a 58 y/o M with known past medical history of COPD, DVT, HTN, PE s/p IVC filter, and TIA pt presented to ER with frequent syncopal episodes at home associated with the fall striking his head on the ground. He was admitted in the hospital placed him on diagnostic cardiac sonographer. He still feeling weak, dizzy and lightheadedness. He denied any CP. No more syncopal episodes since he got admitted in the hospital. He denied any more CP. He does have worsening severe SOB and KUNZ now. - Exam Vitals: Temp Pulse Resp BP Pulse Ox 97.7 F 72 16 145/84 99 10/02/18 11:25 10/02/18 11:25 10/02/18 11:25 10/02/18 11:25 10/02/18 11:25 Exam: Gen: Alert, awake, Oriented to time,place and person Chest: Diminished breath sounds B/L, No wheezing, No crackles, No rales Heart: S1S2+ RRR No murmurs Abd: Soft, NT, BS +, No organomegaly Ext: No edema, pulses are palpable, No calf tenderness Neuro : No acute focal neuro deficits noticed Skin: No rash. - Assessment and Plan (1) Syncope Current Visit: Yes Status: Acute Assessment and Plan: He does have multiple syncopal episodes concerning for POTS Cont daily ortho stat vitals will talk to card for further work up may get benefit with holter monitor PT / OT eval reviewed limited Echo - Preserved LVEF, No septal , wall motion abnormalities noticed (2) Chest pain Current Visit: No Status: Chronic Assessment and Plan: Patient has had chest pain, which was relieved with nitroglycerin in the em ergency department He was recently admitted here with CP and elevated troponin, Card did evaluate him and recommend out pt stress test However with his current frequent syncopal episodes , he definitely need ischemic work up He does need 2 days nuclear stress test cont ASA, Metoprolol and Lisinopril (3) COPD (chronic obstructive pulmonary disease) Current Visit: Yes Status: Chronic Assessment and Plan: He still have diffuse severe wheezing Switched to IV Solumedrol and inc frequency continue frequent bronchodilator therapy he does have chronic hypoxic respiratory failure uses 3 lit oxygen at home currently he is on 3 lit oxygen Patient does need to stay in the hospital more than 2 midnights due to his complex medical problems. So we will change him to full admission today. I did review my colleague Dr. Gann's H & P including HPI, PMH, PSH, FH, SH, and ROS no changes noticed (4) History of pulmonary embolism Current Visit: Yes Status: Chronic Assessment and Plan: Patient on coumadin INR @ 2.5 (5) DVT prophylaxis Current Visit: Yes Status: Acute Assessment and Plan: Continue Coumadin Pharmacy to dose (6) Chronic hypoxemic respiratory failure Current Visit: Yes Status: Chronic (7) Head injury due to trauma Current Visit: Yes Status: Acute Assessment and Plan: Head CT - from 09/29 - No acute ICH repeat Head CT from 09/30- No ICH fall risk cont close monitoring - Time Spent with Patient Total time spent is greater than 50% in coordination of care (as documented) at patient's floor/unit and/or counseling patient: Internal Medicine: Result - Labs CBC & Chem 7: 10/01/18 04:20 10/01/18 04:20 - ABG Interpretation ABG results: PT/INR, D-dimer PT 29.0 Seconds (9.4-12.1) H 10/02/18 06:17 Consult Discharge Plan - Plan Referrals: Srinivas Pearce DO [Primary Care Provider] - (1) Syncope Qualifiers: Syncope type: unspecified Qualified Code(s): R55 - Syncope and collapse (2) Chest pain Qualifiers: Chest pain type: unspecified Qualified Code(s): R07.9 - Chest pain, unspecified (3) COPD (chronic obstructive pulmonary disease) Qualifiers: COPD type: chronic bronchitis Chronic bronchitis type: unspecified Qualified Code(s): J42 - Unspecified chronic bronchitis (7) Head injury due to trauma Qualifiers: Encounter type: initial encounter Qualified Code(s): S09.90XA - Unspecified injury of head, initial encounter
[2018-10-02] MEDS: MethylPREDNISolone 40 MG/ML VIAL IVP SCH (16:05)
[2018-10-02] MEDS: Lisinopril 20 MG TABLET PO SCH (16:05)
[2018-10-02] MEDS ORDERED: *HR* Warfarin 5 MG TABLET PO ONE (18:00)
--- NOTE | 2018-10-02 23:05 | Electrocardiograph Report ---
[facility] Test Date: 2018-09-29 Pat Name: Mason Oliva Department: EXAM6 Room: 3B54 Gender: M [employer]: : 1960 Requested By: Danii Aponte Order Number: [id number] Reading MD: Juan Davis Measurements Intervals [place] Rate: 69 P: 21 AR: 142 QRS: 40 QRSD: 86 T: 45 QT: 382 QTc: 410 Interpretive Statements Sinus rhythm Low voltage, precordial leads Electronically Signed On 10-02-2018 23:04:02 EDT by Juan Davis
[2018-10-03] MEDS: MethylPREDNISolone 40 MG/ML VIAL IVP SCH ×3 (00:12→16:34)
[2018-10-03] MEDS: ALPRAZolam 1 MG TABLET PO PRN ×3 (00:12→16:33)
[2018-10-03] MEDS: *HR* HYDROcodone/Acet 7.5/325 mg TABLET PO PRN ×4 (03:08→21:57)
[2018-10-03] MEDS: Ipratropium/Albuterol Neb 3 ML IH SCH ×6 (04:45→23:06)
[2018-10-03] MEDS: predniSONE 20 MG TABLET PO SCH (06:46)
[2018-10-03 06:50] LABS: INR 1.8; Prothrombin Time 20.2 Seconds (9.4-12.1)
[2018-10-03] MEDS: Tiotropium 18 MCG inhalation IH SCH (07:52)
[2018-10-03] MEDS: Budesonide/Formoterol 160/4.5 1 PUFF INH IH SCH ×2 (07:52→20:48)
[2018-10-03] MEDS: Gabapentin 300 MG CAPSULE PO SCH ×3 (09:31→20:13)
[2018-10-03] MEDS: tiZANidine 4 MG TABLET PO PRN (09:31)
[2018-10-03 12:20] LABS: Basophils % 0.1 %; Hematocrit 37.9 % (37.5-50.1); Hemoglobin 12.2 g/dL (12.9-16.9); Immature Granulocytes % 3.2 % (0-4); Lymphocytes % 5.6 %; Mean Corpuscular HGB Conc 32.2 g/dL (31.6-35.5); Mean Corpuscular Hemoglobin 30.9 pg (28.0-33.3); Mean Corpuscular Volume 95.9 fL (83.0-100.0); Monocytes # 0.4 K/mcL (0.0-1.3); Monocytes % 2.6 %; Neutrophils # 15.2 K/mcL (1.6-8.9); Platelet Count 316 K/mcL (140-400); Red Blood Count 3.95 M/mcL (4.19-5.50); Red Cell Distribution Width 14.9 % (11.5-14.5); Segmented Neutrophils % 88.5 %; White Blood Count 17.1 K/mcL (4.3-11.1)
[2018-10-03 13:03] LABS: BUN/Creatinine Ratio 14 (6-26); Blood Urea Nitrogen 14 mg/dL (6-20); Calcium 9.4 mg/dL (8.6-10.3); Carbon Dioxide 28 mEq/L (23-29); Chloride 102 mEq/L (98-107); Glucose 166 mg/dL (70-105); Osmolality,Calculated 286 (280-300); Potassium 5.1 mEq/L (3.5-5.1); Sodium 136 mEq/L (136-145); eGFR For African Americans > 60 (> 60); eGFR For Non-African Americans > 60 (> 60)
--- NOTE | 2018-10-03 13:16 | Cardiology Consult Note ---
<BossmanSeng sams R - Last Filed: 10/03/18 13:37> Date of Encounter: 10/03/18 Time of Encounter: 13:16 Assessment and Plan (1) Abnormal stress test Current Visit: Yes Status: Acute Nuclear stress test 10/03/18 Small to medium sized, moderate intensity, reversible inferolateral defect suggestive of ischemia. There is qualitative and quantitative evidence of transient ischemic dilatation. Intermittent exertional chest pain and dyspnea over the past month with associated nausea and diaphoresis. Syncopal events prior to admission. Risk factors for CAD include HTN, prior tobacco abuse, family hx. Reports LHC in 2000 without intervention. Given abnormal stress test and risk factors, recommend LHC. R/B/A discussed. Pt agrees to proceed. Anticoagulated on Coumadin, INR 1.8. Will hold Coumadin tonight. LHC tomorrow if INR is <1.6. Will start heparin gtt given hx of Factor V Leiden, DVT/PE, TIA. Wheezes on exam, tachypneic, leukocytosis. Will order CXR. (2) Syncope Current Visit: Yes Status: Acute Multiple syncopal events prior to admission of unclear etiology. Head CT negative. No arrhythmias noted on telemetry. One set of orthostatic vitals were positive--153/89 lying, 122/73 sitting. Subsequent orthostatics were negative. BP currently stable. Limited TTE EF preserved. Full TTE 06/2018 no significant valvular dysfunction. Abnormal stress test as above, plan for LHC when INR allows. Qualifiers: Syncope type: unspecified Qualified Code(s): R55 - Syncope and collapse (3) History of pulmonary embolism Current Visit: Yes Status: Chronic Hx of PE/DVTs, Factor V Leiden, IVC filter, anticoagulated on Coumadin. INR 1.8 today. Hold Coumadin in anticipation for LHC. Will bridge with heparin gtt. Discussion w patient/family: The assessment and plan as outlined above was discussed with the patient and/or family members who expressed understanding and agreement. All questions were answered. Thank you for involving us in the care of your patient. Please call with any questions. I will discuss all the above with Dr. Flores and make changes as necessary. History of Present Illness Consult date: 10/03/18 Requesting physician: Nanci Rodriguez Consult reason: abnormal stress test Chief complaint: syncope, chest pain History of present illness: Mr. Oliva is a 58 year old male with PMH of COPD, DVT, HTN, PE s/p IVC filter, and TIA presented to the ED after syncopal event at home striking his head on the ground. He has been experiencing syncopal episodes over the last couple of days, and on the day of his presentation he states that he has had four different episodes, the first episode occurring while he was going out to his car he did not fully pass out but he did go to the ground. The fourth episode was while he was putting some soft drinks in his freezer he started to fall backwards hitting his head on the ground and was unconscious for what he says was a few minutes. He woke up with the freezer door still open and pain in the back of his head and neck. EMS was called. Pt admits to intermittent exertional chest pain and dyspnea over the past month with associated dyspnea, nausea and diaphoresis. Limited TTE LVEF 60-65%. Normal LV chamber size, wall thickness and function. Underwent nuclear stress test which was abnormal. Small-medium sized moderate intensity reversible perfusion defect suggestive of ischemia. Qualitative and quantitative evidence of TID. Cardiology consulted for further recs. Prior CV testing: Nuclear stress test 10/03/18: Study quality was fair. Pharmacologic stress ECG is non-diagnostic due to submaximal HR. Gated EF = 68%. Small to medium sized, moderate intensity, reversible inferolateral defect suggestive of ischemia. There is qualitative and quantitative evidence of transient ischemic dilatation. Limited TTE 10/01/18: LVEF 60-65%. Normal LV chamber size, wall thickness and function. TTE 06/25/18: LVEF 65-70%. Indeterminate diastolic function. Normal RV size and function. No significant valvular dysfunction. No phtn. Past Med Surg Social Fam HX - Past Medical History Medical history: COPD, DVT, hypertension, pulmonary embolus, TIA, other Additional medical history: juan c filter. Factor 5 Psychiatric history: anxiety, depression - Past Surgical History Surgical History: IVC Filter, vasectomy Additional surgical history: PLACEMENT OF THE IVC FILTER. VASECTOMY - Social History Smoking Status: Former smoker Smokeless Tobacco Status: Yes Alcohol use: none Drug use: none - Family History Father Adopted: No Living Status: Hx Family Cardiac Disorders: Yes (ND) Hx Family Respiratory Disorders: Yes (copd, black lung) Hx Family Cancer: Yes (bladder ca) Hx Family GI Disorders: No Mother Adopted: No Living Status: Still Living Hx Family Respiratory Disorders: Yes (copd) Hx Family Cancer: Yes Hx Family GI Disorders: Yes (colon) Medications and Allergies Gabapentin [Neurontin] 300 mg PO TID 03/27/15 [History] DULoxetine [Cymbalta] 30 mg PO HS 02/27/17 [History] Atorvastatin [Lipitor] 10 mg PO HS 03/23/17 [History] Lisinopril [Zestril] 20 mg PO 1800 03/23/17 [History] Metoprolol [Lopressor] 12.5 mg PO BID tablet 04/04/17 [Rx] Tizanidine HCl [Zanaflex] 4 mg PO TID PRN #10 capsule 04/04/17 [Rx] Furosemide [Lasix] 40 mg PO BID #60 tablet 04/05/17 [Rx] ALPRAZolam [Xanax 1 MG Tablet] 1 mg PO BID PRN 04/17/17 [History] Albuterol Sulfate [Proventil Inhaler] 2 puff IH Q4HR PRN 08/03/18 [History] Levalbuterol Neb [Xopenex Neb] 1.25 mg IH Q6H PRN 08/03/18 [History] Warfarin Sodium 5 mg PO SUMOTUWETHSA 08/03/18 [History] Warfarin Sodium 7.5 mg PO FR 08/03/18 [History] Tiotropium Newman [Spiriva Respimat] 2 inh IH DAILY 09/23/18 [History] Acetylcysteine 10% 2 ml IH Q4H PRN #10 inhsol 09/26/18 [Rx] HYDROcodone/Acet 5/325 mg [[place] 5-325 mg] 1 tab PO Q4HR PRN 5 Days #20 tablet 09/26/18 [Rx] predniSONE [PredniSONE] 10 mg PO DAILY #20 tablet 09/26/18 [Rx] Allergy/AdvReac Type Severity Reaction Status Date / Time No Known Allergies Allergy Verified 09/30/18 11:13 All Systems Review: The remainder of the systems were reviewed and are negative - Cardiovascular Cardiovascular: as per HPI, chest pain with exertion, diaphoresis, dyspnea on exertion - Respiratory Respiratory: dyspnea - Gastrointestinal Gastrointestinal: nausea Physical Examination Vital Signs, Last 4 Hours Temp Pulse Resp BP Pulse Ox 10/03/18 11:42 16 95 10/03/18 11:30 98.5 F 63 16 115/72 95 Vital Signs Temp Pulse Resp BP Pulse Ox 10/03/18 11:42 16 95 10/03/18 11:30 98.5 F 63 16 115/72 95 10/03/18 07:53 16 96 10/03/18 07:42 97.5 F L 98 16 132/82 96 10/03/18 05:01 22 98 10/03/18 03:00 97.8 F 90 16 161/83 96 10/02/18 23:55 16 100 10/02/18 23:40 98.2 F 69 16 136/71 96 10/02/18 20:37 16 95 10/02/18 19:13 97.6 F 77 15 133/79 96 10/02/18 16:16 98.1 F 68 18 136/83 99 10/02/18 15:55 17 99 Intake and Output 10/02/18 10/03/18 10/03/18 23:59 07:59 15:59 Output Total 450 / 450 Balance -450 / -450 Output: Urine 450 / 450 Other: # Voids 1 Weight 134.4 kg Patient Weight 10/03/18 23:59 Weight 134.4 kg General: Conversant, No Apparent Distress HEENT: Atraumatic, Normocephaly, Mucus Membranes Moist Neck: No JVD, Normal carotid pulses Cardiac: Reg Rate and Rhythm, Normal S1 and S2, No Murmur Lungs: Other (mild wheezes) Neuro: Alert and responsive, No focal deficits noted Abdomen: Soft, Non-Tender Skin: No rashes noted on visualized skin Musculoskeletal: No Chest Wall Tenderness Extremities: No Clubbing, No Cyanosis, No Edema, Normal Pulses Results 10/03/18 11:56 10/03/18 11:56 Lab Results 10/03/18 10/03/18 10/03/18 06:10 11:56 11:56 WBC 17.1 H Hgb 12.2 L Hct 37.9 Plt Count 316 INR 1.8 Sodium 136 Potassium 5.1 Chloride 102 Carbon Dioxide 28 BUN 14 Creatinine 0.99 Glucose 166 H Calcium 9.4 Short CBC 10/03/18 Range/Units 11:56 WBC 17.1 H (4.3-11.1) K/mcL Hgb 12.2 L (12.9-16.9) g/dL Hct 37.9 (37.5-50.1) % Plt Count 316 (140-400) K/mcL Neutrophils # 15.2 H (1.6-8.9) K/mcL BMP 10/03/18 Range/Units 11:56 Sodium 136 (136-145) mEq/L Potassium 5.1 (3.5-5.1) mEq/L Chloride 102 (98-107) mEq/L Carbon Dioxide 28 (23-29) mEq/L BUN 14 (6-20) mg/dL Creatinine 0.99 (0.70-1.30) mg/dL Glucose 166 H (70-105) mg/dL Calcium 9.4 (8.6-10.3) mg/dL Active Medications Acetaminophen (Tylenol) 650 mg PO Q6HR PRN PRN Reason: Mild Pain/Fever Stop: 04/01/19 01:32 Last Admin: 09/30/18 08:15 Dose: 650 mg Documented by: Hydrocodone Bitart/Acetaminophen ([place] 7.5-325 Mg) 1 tab PO Q6HR PRN PRN Reason: Severe Pain Stop: 04/02/19 12:20 Last Admin: 10/03/18 09:31 Dose: 1 tab Documented by: Acetylcysteine (Acetylcysteine 10%) 2 ml IH Q4H PRN PRN Reason: Cough Stop: 04/01/19 12:11 Albuterol/Ipratropium (Duoneb) 3 ml IH [id number] SCH Stop: 04/03/19 16:01 Last Admin: 10/03/18 11:36 Dose: 3 ml Documented by: Alprazolam (Xanax) 1 mg PO BID PRN; Protocol PRN Reason: Anxiety Stop: 04/01/19 12:11 Last Admin: 10/03/18 09:35 Dose: 1 mg Documented by: Atorvastatin Calcium (Lipitor) 10 mg PO [facility] Stop: 04/01/19 21:01 Last Admin: 10/02/18 21:06 Dose: 10 mg Documented by: Budesonide/Formoterol Fumarate (Symbicort) 2 puff IH BIDR [facility]; Protocol Stop: 04/01/19 22:01 Last Admin: 10/03/18 07:52 Dose: 2 puff Documented by: Duloxetine HCl (Cymbalta) 30 mg PO HS [facility] Stop: 04/01/19 21:01 Last Admin: 10/02/18 21:07 Dose: 30 mg Documented by: Gabapentin (Neurontin) 300 mg PO TID [facility] Stop: 04/01/19 15:01 Last Admin: 10/03/18 09:31 Dose: 300 mg Documented by: Levalbuterol HCl (Xopenex) 1.25 mg IH Q6H PRN PRN Reason: Shortness Of Breath Stop: 04/01/19 12:11 Lisinopril (Zestril) 20 mg PO 1800 [facility]; Protocol Stop: 04/01/19 18:01 Last Admin: 10/02/18 16:05 Dose: 20 mg Documented by: Methylprednisolone (Solu-Medrol) 40 mg IVP Q12HR [facility] Stop: 04/04/19 18:01 Metoprolol Tartrate (Lopressor) 12.5 mg PO BID [facility] Stop: 04/01/19 21:01 Last Admin: 10/03/18 09:30 Dose: 12.5 mg Documented by: Multi-Ingredient Mucositis [place] (Chloraseptic) 1 spray MM QID PRN PRN Reason: Sore Throat Stop: 04/02/19 05:03 Last Admin: 10/01/18 05:53 Dose: 1 spray Documented by: Naloxone HCl (Narcan) 0.4 mg IVP Q2MPRN PRN PRN Reason: SEE COMMENTS Stop: 03/31/19 23:42 Nitroglycerin (Nitroglycerin) 0.4 mg SL Q5MPRN PRN PRN Reason: Chest Pain Stop: 03/31/19 19:02 Last Admin: 09/29/18 19:31 Dose: 0.4 mg Documented by: Tiotropium Newman (Spiriva) 18 mcg IH DAILYR [facility] Stop: 04/03/19 10:01 Last Admin: 10/03/18 07:52 Dose: Not Given Documented by: Tizanidine HCl (Zanaflex) 4 mg PO TID PRN PRN Reason: Muscle Spasm Last Admin: 10/03/18 09:31 Dose: 4 mg Documented by: - Imaging and Cardiology Stress Test: report reviewed Echo: report reviewed - EKG Interpretation EKG results cardiology: personally reviewed (SR), other (12 hr tele AVG HR 84, SR, no significant pauses or arrhythmias) Consult Discharge Plan - Plan Referrals: Srinivas Paerce DO [Primary Care Provider] - 10/09/18 3:30 pm <Ronen Flores - Last Filed: 10/04/18 11:15> Date of Encounter: 10/04/18 - Attending Attestation I have personally performed a face to face evaluation on this patient. I have reviewed and agree with the documented findings and care plan as documented by the CERTIFIED PHARMACIST ASSISTANT. History and Exam by me shows: Patients with atypical chest pain and abnormal stress test with potential high risk finding of tid. Recommend cardiac catheterization. Patient is agreeable. Further recommendations to follow after cardiac catheterization. Thanks, Ronen Flores MD FAC Assessment and Plan Discussion w patient/family: The assessment and plan as outlined above was discussed with the patient and/or family members who expressed understanding and agreement. All questions were answered. Thank you for involving us in the care of your patient. Please call with any questions. History of Present Illness History of present illness: Mr. Oliva is a 58 year old male All Systems Review: The remainder of the systems were reviewed and are negative Physical Examination Vital Signs, Last 4 Hours Temp Pulse Resp BP Pulse Ox 10/04/18 08:37 97.8 F 85 15 133/78 95 10/04/18 07:17 16 96 Results 10/04/18 05:13 10/04/18 05:13 Lab Results 10/03/18 10/03/18 10/04/18 11:56 11:56 05:13 WBC 17.1 H Hgb 12.2 L Hct 37.9 Plt Count 316 INR 1.7 Sodium 136 Potassium 5.1 Chloride 102 Carbon Dioxide 28 BUN 14 Creatinine 0.99 Glucose 166 H Calcium 9.4 10/04/18 10/04/18 05:13 05:13 WBC 23.6 H Hgb 12.0 L Hct 37.6 Plt Count 290 INR Sodium 138 Potassium 4.7 Chloride 102 Carbon Dioxide 26 BUN 16 Creatinine 0.91 Glucose 215 H Calcium 9.7
[2018-10-03] MEDS ORDERED: *HR* Heparin 5,000 UNIT/ML VIAL IVP PRN ×2 (13:47)
[2018-10-03] MEDS ORDERED: *HR* Heparin 5,000 UNIT/ML VIAL IVP ONE (13:47)
--- NOTE | 2018-10-03 15:36 | Internal Med Progress Note ---
Hospitalist Progress Note - Encounter Date of Encounter: 10/03/18 Time of Encounter: 15:33 - Subjective Interval History: Mr. Oliva is a 58 y/o M with known past medical history of COPD, DVT, HTN, PE s/p IVC filter, and TIA pt presented to ER with frequent syncopal episodes at home associated with the fall striking his head on the ground. He was admitted in the hospital placed him on manager cardiac cath. He still feeling weak, dizzy and lightheadedness. He denied any CP. No more syncopal episodes since he got admitted in the hospital. He denied any more CP. Pt stated his SOB and KUNZ are little better , however he is still not at baseline. - Exam Vitals: Temp Pulse Resp BP Pulse Ox 98.5 F 63 16 115/72 95 10/03/18 11:30 10/03/18 11:30 10/03/18 11:42 10/03/18 11:30 10/03/18 11:42 Exam: Gen: Alert, awake, Oriented to time,place and person Chest: Diminished breath sounds B/L, Moderate wheezing, No crackles, No rales Heart: S1S2+ RRR No murmurs Abd: Soft, NT, BS +, No organomegaly Ext: No edema, pulses are palpable, No calf tenderness Neuro : No acute focal neuro deficits noticed Skin: No rash. - Assessment and Plan (1) Syncope Current Visit: Yes Status: Acute Assessment and Plan: He does have multiple syncopal episodes concerning for POTS Cont daily ortho stat vitals will talk to card for further work up may get benefit with holter monitor PT / OT eval reviewed limited Echo - Preserved LVEF, No septal , wall motion abnormalities noticed (2) Chest pain Current Visit: No Status: Chronic Assessment and Plan: Patient has had chest pain, which was relieved with nitroglycerin in the emergency department He was recently admitted here with CP and elevated troponin, Card did evaluate him and recommend out pt stress test However with his current frequent syncopal episodes , he definitely need ischemic work up cont ASA, Metoprolol and Lisinopril He did go for stress test which came back as abnormal with : Small to medium sized, moderate intensity, reversible inferolateral defect suggestive of ischemia Consutled cardiology for further eval possible LHC in AM NPO after mid night.. Held coumadin for tonight (3) Abnormal stress test Current Visit: Yes Status: Acute (4) COPD (chronic obstructive pulmonary disease) Current Visit: Yes Status: Chronic Assessment and Plan: Improving wheezing start tapering steroids continue frequent bronchodilator therapy he does have chronic hypoxic respiratory failure uses 3 lit oxygen at home currently he is on 3 lit oxygen (5) History of pulmonary embolism Current Visit: Yes Status: Chronic Assessment and Plan: Had PE In 2000 Patient on coumadin.. INR @ 1.8 Held Coumadin today since he may go for [facility] (6) Chronic hypoxemic respiratory failure Current Visit: Yes Status: Chronic (7) Head injury due to trauma Current Visit: Yes Status: Acute Assessment and Plan: Head CT - from 09/29 - No acute ICH repeat Head CT from 09/30- No ICH fall risk cont close monitoring (8) DVT prophylaxis Current Visit: Yes Status: Acute Assessment and Plan: On Coumadin - Time Spent with Patient Total time spent is greater than 50% in coordination of care (as documented) at patient's floor/unit and/or counseling patient: Internal Medicine: Result - Labs CBC & Chem 7: 10/03/18 11:56 10/03/18 11:56 Labs: Short CBC 10/03/18 Range/Units 11:56 WBC 17.1 H (4.3-11.1) K/mcL Hgb 12.2 L (12.9-16.9) g/dL Hct 37.9 (37.5-50.1) % Plt Count 316 (140-400) K/mcL Neutrophils # 15.2 H (1.6-8.9) K/mcL BMP 10/03/18 11:56 Sodium 136 Potassium 5.1 Chloride 102 Carbon Dioxide 28 BUN 14 Creatinine 0.99 Glucose 166 H Calcium 9.4 - ABG Interpretation ABG results: PT/INR, D-dimer PT 20.2 Seconds (9.4-12.1) H 10/03/18 06:10 - Impressions Impressions Chest X-Ray 10/03/18 13:47 IMPRESSION: No acute cardiopulmonary disease. Stable elevated right hemidiaphragm. D/ / Cheikh Zacarias MD / Cheikh Zacarias MD Interpreting Provider: Cheikh Zacarias MD Consult Discharge Plan - Plan Referrals: Srinivas Pearce DO [Primary Care Provider] - 10/09/18 3:30 pm (1) Syncope Qualifiers: Syncope type: unspecified Qualified Code(s): R55 - Syncope and collapse (2) Chest pain Qualifiers: Chest pain type: unspecified Qualified Code(s): R07.9 - Chest pain, unspecified (4) COPD (chronic obstructive pulmonary disease) Qualifiers: COPD type: chronic bronchitis Chronic bronchitis type: unspecified Qualified Code(s): J42 - Unspecified chronic bronchitis (7) Head injury due to trauma Qualifiers: Encounter type: initial encounter Qualified Code(s): S09.90XA - Unspecified injury of head, initial encounter
[2018-10-03] MEDS: Heparin 25,000 UNIT/250 ML D5W 25,000 UNIT/250 ML IV.SOLN IVC SCH (15:37)
[2018-10-03] MEDS ORDERED: ALPRAZolam 1 MG TABLET PO SCH (16:00)
[2018-10-03] MEDS: Lisinopril 20 MG TABLET PO SCH (16:33)
[2018-10-04] MEDS: Ipratropium/Albuterol Neb 3 ML IH SCH ×6 (03:55→23:26)
[2018-10-04] MEDS: ALPRAZolam 1 MG TABLET PO PRN ×3 (04:11→17:05)
[2018-10-04] MEDS: *HR* HYDROcodone/Acet 7.5/325 mg TABLET PO PRN ×3 (04:11→17:05)
[2018-10-04] MEDS: MethylPREDNISolone 40 MG/ML VIAL IVP SCH (04:12)
[2018-10-04 05:28] LABS: Basophils % 0.1 %; Hematocrit 37.6 % (37.5-50.1); Immature Granulocytes % 2.8 % (0-4); Lymphocytes # 1.2 K/mcL (0.6-4.6); Lymphocytes % 5.2 %; Mean Corpuscular HGB Conc 31.9 g/dL (31.6-35.5); Mean Corpuscular Hemoglobin 30.5 pg (28.0-33.3); Mean Corpuscular Volume 95.7 fL (83.0-100.0); Mean Platelet Volume 9.1 fL (9.4-12.4); Monocytes # 1.2 K/mcL (0.0-1.3); Neutrophils # 20.5 K/mcL (1.6-8.9); Platelet Count 290 K/mcL (140-400); Red Blood Count 3.93 M/mcL (4.19-5.50); Red Cell Distribution Width 15.1 % (11.5-14.5); Segmented Neutrophils % 86.9 %; White Blood Count 23.6 K/mcL (4.3-11.1)
[2018-10-04 05:45] LABS: BUN/Creatinine Ratio 18 (6-26); Blood Urea Nitrogen 16 mg/dL (6-20); Calcium 9.7 mg/dL (8.6-10.3); Carbon Dioxide 26 mEq/L (23-29); Chloride 102 mEq/L (98-107); Glucose 215 mg/dL (70-105); Osmolality,Calculated 294 (280-300); Potassium 4.7 mEq/L (3.5-5.1); Sodium 138 mEq/L (136-145); eGFR For African Americans > 60 (> 60); eGFR For Non-African Americans > 60 (> 60)
[2018-10-04 05:55] LABS: INR 1.7; Prothrombin Time 19.3 Seconds (9.4-12.1)
[2018-10-04] MEDS: Heparin 25,000 UNIT/250 ML D5W 25,000 UNIT/250 ML IV.SOLN IVC SCH ×2 (07:10→18:40)
[2018-10-04] MEDS: Budesonide/Formoterol 160/4.5 1 PUFF INH IH SCH ×2 (07:17→23:25)
[2018-10-04] MEDS: Gabapentin 300 MG CAPSULE PO SCH ×3 (08:49→19:59)
--- NOTE | 2018-10-04 08:49 | Event Note ---
Date of Encounter: 10/04/18 Time of Encounter: 08:47 - Cardiology Event Note INR 1.7 today. Discussed with interventionalist, Dr. Singer. Will proceed with [facility] as planned for abnormal stress test. R/B/A discussed. Pt agrees to proceed.
[2018-10-04] MEDS: Tiotropium 18 MCG inhalation IH SCH (11:03)
--- NOTE | 2018-10-04 13:56 | Pre-Sedation Evaluation ---
Pre-sedation evaluation - Pre-sedation checklist Date of procedure: 10/04/18 Procedure: heart cath Recent Vitals: Last Vital Signs Temp 98.5 F 10/04/18 11:44 Pulse 74 10/04/18 11:44 Resp 17 10/04/18 11:44 BP 144/82 10/04/18 11:44 Pulse Ox 96 10/04/18 11:44 H&P (including ROS) documented in medical record: Yes Previous reaction to sedatives/anesthetics: No Dietary Status: NPO after Midnight Airway Assessment: Patient can open mouth completely, TMJ function normal Dentition: No loose teeth or bridges Possible difficult airway: No ASA Classification *see protocol: CLASS II-Mild systemic disease Cardiac Registry (Cardio Only) - Functional Capacity Functional Capacity: >=4 METS with symptoms - Clincal Frailty Scale Clinical Frailty Scale: Well
[2018-10-04] MEDS ORDERED: *HR* Midazolam HCl 2 MG/2 ML VIAL ONE (14:03)
[2018-10-04] MEDS ORDERED: 0.9 % Sodium Chloride 1,000 ML ONE (14:03)
[2018-10-04] MEDS ORDERED: Nitroglycerin 1,000 MCG/10 ML VIAL IV ONE (14:03)
[2018-10-04] MEDS ORDERED: Heparin 1,000 UNITS/500 mL 500 ML ONE (14:03)
[2018-10-04] MEDS ORDERED: ISOVUE-370 200 ML INFUS..BTL ONE (14:03)
[2018-10-04] MEDS ORDERED: *HR* Heparin 10,000 UNIT/10 ML VIAL ONE (14:03)
--- NOTE | 2018-10-04 14:34 | Event Note ---
Date of Encounter: 10/04/18 Time of Encounter: 14:34 - Cardiology Event Note Cath COmpleted LVEF 60% NOrmal dominant rca normal lca evaluate for non cardiac chest pain per primary service.
--- NOTE | 2018-10-04 14:41 | Event Note ---
Date of Encounter: 10/04/18 Time of Encounter: 14:38 - Cardiology Event Note C completed. Found to have normal coronaries. Syncopal event likely orthostatic. Positive orthostatic vitals on admission. Continue to push fluids. Slow position changes recommended. Consider compression stockings. No further cardiac work-up. Okay to restart coumadin. Pharmacy to dose. Continue heparin bridge. Cardiology will sign off.
--- NOTE | 2018-10-04 14:56 | Invasive Diagnostic Lab Proc ---
Name: Mason Oliva Date of Study: 10/04/2018 Date: 1960 Ht: 70.9in Medical Record#: [id number] Age: 58 Wt: 301.15lb Gender: Male BSA: 2.51 Order #: [id number] BMI: 42.16 Physicians Procedure Physician: Roderick Singer MD Referring MD: Referring MD: Staff Name Position Time In Dhruv Meier RN Monitor 02:08 PM Rissa Busch RT (R) Scrub 02:08 PM Jaylyn Taylor RN Mail Processor 02:08 PM Indications Indication Abnormal Test - Stress Procedures Performed Procedure L HRT ARTERY/VENTRICLE ANGIO Pre-Procedure Checklist Informed consent is complete signed and on chart. H&P is on chart. ID band is on and ID verified with patient. Patient NPO for procedure The procedure was described for the patient and questions were answered. ECG is on chart. Plan of Care Patient will tolerate the procedure without complications. Adequate level of comfort will be maintained. Hemodynamics will remain stable Patient will recover from procedure without complications. Respiratory function will be maintained. Cardiac rhythm will remain stable. Patient temperature will be maintained. Patient and/or family have verbalized understanding of the procedure. Patient Education Chief Complaint/Reason for Test: Cardiac Cath Developmental Category: Adult (18-64 years) Developmentally Appropriate for Age: Yes Learning Barriers: None Education Needs: Procedure Education Method: Verbal Information Taught: Cardiac Cath Educational Evaluation: Able to repeat information Intravenous Access Time IV Size Location DC'd Fluid/Drip Rate Units RN 20g 1 1/4" Patent On Arrival Rt Antecubital 0.9NaCl Allergies PCN, DILAUDID PENICILLINS No Known Allergies Vital Signs Time BP (mmHg) HR (bpm) O2 Sat. RR (bpm) LOC 02:08 PM / % 5 = Fully awake and oriented or at pre-proc level 02:08 PM / % 4 = Oriented but drowsy 02:12 PM 147 / 80 70 97 % 14 02:16 PM 136 / 80 76 95 % 22 02:21 PM 137 / 70 73 96 % 16 02:26 PM 133 / 77 83 93 % 18 02:31 PM 140 / 76 79 94 % 31 Procedural Medications Time Medication Dose Units Method Given By 02:09 PM Oxygen 2 L/min nasal cannula Jaylyn Taylor RN 02:13 PM Versed 2 mg Intravenous Jaylyn Taylor RN 02:20 PM Heparin 2000 units Nitroglycerin 200 mcg Verapamil 2.5 mg Intraarterial Roderick Singer MD ASA Classification: CLASS II- Mild systemic disease (i.e. well-controlled diabetes, hypertension, asthma, cigarette smoking) Emily Score Preprocedure Postprocedure Activity 2- Moves 4 extremities sustained head lift Activity 2- Moves 4 extremities sustained head lift Circulation 2- SBP +/= 20 points of pre-anesthetic level Circulation 2- SBP +/= 20 points of pre-anesthetic level Consciousness 2- Awake and alert oriented x 3 Consciousness 2- Awake and alert oriented x 3 O2 Saturation 2- Able to maintain O2 satruation of 92% on room air O2 Saturation 2- Able to maintain O2 satruation of 92% on room air Respiratory 2- Able to deep breathe and cough well Respiratory 2- Able to deep breathe and cough well Total Score 10 Total Score 10 Contrast Agent: Isovue Diagnostic Contrast: 60 ml Total Contrast: 60 ml Fluoro Dose: 24 mGy Procedure Log Time Note Enter By 02:07 PM 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 well-controlled diabetes, hypertension, asthma, cigarette smoking) oparker 02:08 PM Meet and greet completed oparker 02:08 PM Sign in performed according to hospital policy. Informed consent was obtained. oparker 02:08 PM Procedure start 14:08 oparker 02:08 PM Dhruv Meier RN Position: Monitor Time in: 14:08 oparker 02:08 PM Rissa Busch RT (R) Position: Scrub Time in: 14:08 oparker 02:08 PM Jaylyn Taylor RN Position: Mail Processor Time in: 14:08 oparker 02:08 PM Time: 14:08 Patient comfortable and pain free: Yes oparker 02:08 PM Time: 14:08LOC: 5 = Fully awake and oriented or at pre-proc level oparker 02:09 PM CathStat 02:09 PM Patient charges- Angio tray pack, Navilyst 3mm J, Pulse Oximetry and ACIST tubing and transducer oparker 02:09 PM Time: 14:09 Oxygen on at 2 L/min per nasal cannula by Jaylyn Taylor RN 02:10 PM Vitals capture started with the following parameters, Patient=Adult, Interval=5 min, Initial Ksqoejon=985 mmHg, Deflation Rate=3 mmHg, Cuff placed on Right Arm 02:10 PM Hair removed from procedure site in procedure lab using clippers. Right wrist and Right groin prepped with Chloraprep by Rissa Busch), then patient was draped. Skin intact. oparker 02:11 PM Recorded ECG: HR=72 Condition=Condition 1 02:12 PM HR=70 bpm, WGHA=272/80 mmhg, SpO2=97.0 %, Resp=14 B/min, Comment=NSR 02:13 PM Time: 14:13 Versed 2 mg Intravenous Given by Jaylyn Taylor RN oparker 02:16 PM HR=76 bpm, STJX=549/80 mmhg, SpO2=95.0 %, Resp=22 B/min, Comment=NSR 02:17 PM Time out was performed according to hospital policy. Conscious sedation and anesthesia was achieved (see medication log with in this report above) oparker 02:20 PM Access obtained by percutaneous puncture. 6Fr 10cm Terumo Glidesheath sheath placed in right Femoral artery. [id number] oparker 02:20 PM Pressure channel 2 zeroed. 02:20 PM Time: 14:20 Patient given 2000 units Heparin, 200 mcg Nitroglycerin, and 2.5 mg Verapamil Intraarterial by Roderick Singer MD. This is given to reduce risk of vessel spasm and thrombosis. oparker 02:21 PM HR=73 bpm, GDSV=675/70 mmhg, SpO2=96.0 %, Resp=16 B/min, Comment=NSR 02:21 PM 0.035 260cm Navilyst 3mmJ wire [id number] oparker 02:22 PM 5Fr FL 3.5 catheter inserted over the wire [id number] oparker 02:22 PM Recorded Pressure: Ao, HR=73, Condition=Condition 1 (Aorta) Ao 117/80/95 02:22 PM LCA angiography performed in multiple views. oparker 02:23 PM Time: 14:08 Patient comfortable and pain free: Yes oparker 02:23 PM Time: 14:08LOC: 4 = Oriented but drowsy oparker 02:25 PM Recorded Pressure: Ao, HR=85, Condition=Condition 1 (Aorta) Ao 117/83/99 02:26 PM HR=83 bpm, JELA=906/77 mmhg, SpO2=93.0 %, Resp=18 B/min, Comment=NSR 02:26 PM Catheter removed oparker 02:26 PM 5Fr FR 4 catheter inserted over the wire DNC oparker 02:26 PM RCA angiography performed in multiple views. oparker 02:27 PM Catheter removed oparker 02:27 PM 5Fr Pigtail catheter inserted over the wire DNC oparker 02:28 PM Recorded Pressure: LV, HR=71, Condition=Condition 1 (Left Ventricle) LV 126/20/29 02:28 PM Recorded Pressure: LV, HR=74, Condition=Condition 1 (Left Ventricle) LV 133/17/24 02:29 PM Recorded Pressure: LV, Ao, HR=81, Condition=Condition 1 (Left Ventricle) LV 134/23/31, (Aorta) Ao 128/78/102 02:29 PM Catheter crossed the aortic valve and was selectively placed in the left ventricle. Pressures recorded on pullback for left heart catheterization. oparker 02:29 PM Bolus angiogram of left Ventricle complete: 12 ml/sec for a total of 36 mls oparker 02:29 PM Catheter removed oparker 02:29 PM Wire removed oparker 02:30 PM Procedure completed at 14:30 10/04/2018 oparker 02:30 PM Sign out completed: Radiation Dose 263.68 mGy, 23.7 Gy/cm2 Fluoro Time: 2.6 Isovue 370 - 200ml contrast 60 ml given by Roderick Singer MD. Complications: None. 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 Sedation minutes 16. Cardiac Rehab Consult needed: No. Confirmed administered medications: Yes oparker 02:30 PM Isovue 370 - 200ml,1 Bottle(s) used. oparker 02:31 PM Arterial sheath pulled, Vasc Band closure device used and was Successful S/N. oparker 02:31 PM 9 ml air in Vasc Band. oparker 02:31 PM Estimated Blood Loss: minimal oparker 02:31 PM Post ECG NSR oparker 02:31 PM HR=79 bpm, ZMJD=722/76 mmhg, SpO2=94.0 %, Resp=31 B/min 02:31 PM Post Blood Pressure 140/76 oparker 02:31 PM 14:31 Post Pulses Bilateral DP 1+ oparker 02:31 PM Information taught Cardiac Cath and Vasc Band oparker 02:31 PM Education needs Procedure, Plan of Care, and Disease Process oparker 02:31 PM Learning barriers :None oparker 02:31 PM Education Methods Verbal oparker 02:31 PM Education evaluation Able to repeat information oparker 02:32 PM Site status No bleeding/ No Hematoma - Rt Wrist as reported by Rissa Busch RT (R) at 14:31 oparker 02:32 PM Did you address TERENCE flow and Dominance? YesCoronary Dominance: right oparker 02:34 PM Report given to Oralia RIOS Pt taken to 3B Room #54. 14:34 oparker 02:38 PM Patient out of room: 14:38 oparker 02:38 PM Family placed in consult room. crystal Complications Complication None Hemodynamics Pressures Site Systolic/A Wave Diastolic/V Wave Mean AO 117 80 95 AO 117 83 99 LV 126 20 29 LV 133 17 24 LV 134 23 31 AO 128 78 102 Post Procedure Information Blood Pressure: 140/76 mmHg Rhythm: NSR Post procedural instructions were given Closure Device Time Device Success/Fail 10/04/2018 2:34:00 PM Mechanical Compression Successful Site Checks Time Location Status Staff Sheath In? Note 02:31 PM Rt Wrist No bleeding/ No Hematoma Rissa Busch RT (R) Pulses Time Site Pre-Procedure Post-Procedure Note 2:31:00 PM Bilateral DP 1+ Updated by Jaylyn Crawford RN on 10/04/2018 2:40:51 PM electronically signed on 10/04/2018 2:49:21 PM with status of Final
--- NOTE | 2018-10-04 15:07 | Internal Med Progress Note ---
Hospitalist Progress Note - Encounter Date of Encounter: 10/04/18 Time of Encounter: 15:05 - Subjective Interval History: Mr. Oliva is a 58 y/o M with known past medical history of COPD, DVT, HTN, PE s/p IVC filter, and TIA pt presented to ER with frequent syncopal episodes at home associated with the fall striking his head on the ground. He was admitted in the hospital placed him on hall monitor. No more syncopal episodes since he got admitted in the hospital. Since he is high risk fro ACS, he did go for nuclear stress test which came back as abnormal. He was evaluated by cardiology who recommended [facility]. He denied any more CP. Pt stated his SOB and KUNZ are better today.. He just came back from [facility]. - Exam Vitals: Temp Pulse Resp BP Pulse Ox 98.5 F 74 17 144/82 96 10/04/18 11:44 10/04/18 11:44 10/04/18 11:44 10/04/18 11:44 10/04/18 11:44 Exam: Gen: Alert, awake, Oriented to time,place and person Chest: Diminished breath sounds B/L, Moderate wheezing, No crackles, No rales Heart: S1S2+ RRR No murmurs Abd: Soft, NT, BS +, No organomegaly Ext: No edema, pulses are palpable, No calf tenderness Neuro : No acute focal neuro deficits noticed Skin: No rash. - Assessment and Plan (1) Syncope Current Visit: Yes Status: Acute Assessment and Plan: He does have multiple syncopal episodes due to ortho static hypotension check daily ortho stats reviewed limited Echo - Preserved LVEF, No septal , wall motion abnormalities noticed PT / OT eval done - recommended ECF placement for short term rehab (2) Chest pain Current Visit: No Status: Chronic Assessment and Plan: Patient has had chest pain, which was relieved with nitroglycerin in the artemio rgency department He was recently admitted here with CP and elevated troponin, Card did evaluate him and recommend out pt stress test However with his current frequent syncopal episodes , he definitely need ischemic work up cont ASA, Metoprolol and Lisinopril He did go for stress test which came back as abnormal with : Small to medium sized, moderate intensity, reversible inferolateral defect suggestive of ischemia He just came back from [facility] which showed normal CAD Resumed Coumadin again (3) Abnormal stress test Current Visit: Yes Status: Acute Assessment and Plan: normal [facility] (4) COPD (chronic obstructive pulmonary disease) Current Visit: Yes Status: Chronic Assessment and Plan: Improving wheezing start tapering steroids continue frequent bronchodilator therapy he does have chronic hypoxic respiratory failure uses 3 lit oxygen at home currently he is on 3 lit oxygen (5) History of pulmonary embolism Current Visit: Yes Status: Chronic Assessment and Plan: Had PE In 2000 INR @ 1.7 today Resumed Coumadin again cont bridging with heparin gtt (6) Chronic hypoxemic respiratory failure Current Visit: Yes Status: Chronic (7) Head injury due to trauma Current Visit: Yes Status: Acute Assessment and Plan: Head CT - from 09/29 - No acute ICH repeat Head CT from 09/30- No ICH fall risk cont close monitoring (8) DVT prophylaxis Current Visit: Yes Status: Acute Assessment and Plan: On Coumadin - Time Spent with Patient Total time spent is greater than 50% in coordination of care (as documented) at patient's floor/unit and/or counseling patient: Internal Medicine: Result - Labs CBC & Chem 7: 10/04/18 05:13 10/04/18 05:13 Labs: Short CBC 10/04/18 Range/Units 05:13 WBC 23.6 H (4.3-11.1) K/mcL Hgb 12.0 L (12.9-16.9) g/dL Hct 37.6 (37.5-50.1) % Plt Count 290 (140-400) K/mcL Neutrophils # 20.5 H (1.6-8.9) K/mcL BMP 10/04/18 05:13 Sodium 138 Potassium 4.7 Chloride 102 Carbon Dioxide 26 BUN 16 Creatinine 0.91 Glucose 215 H Calcium 9.7 - ABG Interpretation ABG results: PT/INR, D-dimer PT 19.3 Seconds (9.4-12.1) H 10/04/18 05:13 Consult Discharge Plan - Plan Referrals: Srinivas Pearce DO [Primary Care Provider] - 10/09/18 3:30 pm (1) Syncope Qualifiers: Syncope type: unspecified Qualified Code(s): R55 - Syncope and collapse (2) Chest pain Qualifiers: Chest pain type: unspecified Qualified Code(s): R07.9 - Chest pain, unspecified (4) COPD (chronic obstructive pulmonary disease) Qualifiers: COPD type: chronic bronchitis Chronic bronchitis type: unspecified Qualified Code(s): J42 - Unspecified chronic bronchitis (7) Head injury due to trauma Qualifiers: Encounter type: initial encounter Qualified Code(s): S09.90XA - Unspecified injury of head, initial encounter
[2018-10-04] MEDS: Lisinopril 20 MG TABLET PO SCH (15:46)
[2018-10-04] MEDS ORDERED: *HR* Warfarin 5 MG TABLET PO ONE (18:00)
[2018-10-05] MEDS: *HR* HYDROcodone/Acet 7.5/325 mg TABLET PO PRN ×3 (01:26→15:35)
[2018-10-05] MEDS: ALPRAZolam 1 MG TABLET PO PRN ×3 (01:27→15:36)
[2018-10-05] MEDS: tiZANidine 4 MG TABLET PO PRN (01:27)
[2018-10-05] MEDS: Ipratropium/Albuterol Neb 3 ML IH SCH ×4 (04:11→16:12)
[2018-10-05 07:34] LABS: Hemoglobin 11.7 g/dL (12.9-16.9); Mean Corpuscular HGB Conc 31.6 g/dL (31.6-35.5); Mean Corpuscular Hemoglobin 31.1 pg (28.0-33.3); Mean Corpuscular Volume 98.4 fL (83.0-100.0); Mean Platelet Volume 9.3 fL (9.4-12.4); Platelet Count 272 K/mcL (140-400); Red Blood Count 3.76 M/mcL (4.19-5.50); Red Cell Distribution Width 15.4 % (11.5-14.5); White Blood Count 15.5 K/mcL (4.3-11.1)
[2018-10-05] MEDS: Tiotropium 18 MCG inhalation IH SCH (07:44)
[2018-10-05 07:45] LABS: INR 1.2; Prothrombin Time 13.8 Seconds (9.4-12.1)
[2018-10-05 07:56] LABS: BUN/Creatinine Ratio 24 (6-26); Blood Urea Nitrogen 25 mg/dL (6-20); Calcium 9.4 mg/dL (8.6-10.3); Carbon Dioxide 26 mEq/L (23-29); Chloride 100 mEq/L (98-107); Glucose 157 mg/dL (70-105); Osmolality,Calculated 300 (280-300); Potassium 5.1 mEq/L (3.5-5.1); Sodium 141 mEq/L (136-145); eGFR For African Americans > 60 (> 60); eGFR For Non-African Americans > 60 (> 60)
[2018-10-05] MEDS: Budesonide/Formoterol 160/4.5 1 PUFF INH IH SCH (07:57)
[2018-10-05] MEDS: Gabapentin 300 MG CAPSULE PO SCH ×2 (08:55→13:36)
[2018-10-05] MEDS ORDERED: predniSONE 20 MG TABLET PO SCH (09:00)
[2018-10-05 10:52] VITALS: BP 144/73
[2018-10-05] MEDS ORDERED: *HR* Enoxaparin 150 MG/ML SYRINGE SQ SCH (11:45)
--- NOTE | 2018-10-05 13:29 | Discharge Summary ---
- NOTES TO OUTPATIENT PROVIDER Notes to Outpatient Provider: f/u with PCP in one week. Please take Lovenox 140mg inj SQ BID x 3 days until your INR become theraputeic. Cont Coumadin as scheduled. Orders not resulted at time of discharge: Pending orders 10/02/18 08:58 NM [place] perf SPECT multi [NM] Routine 10/06/18 04:00 Prothrombin Time INR [COAG] AM 0400 10/07/18 04:00 Prothrombin Time INR [COAG] AM 0400 10/08/18 04:00 Prothrombin Time INR [COAG] AM 0400 Date of Encounter: 10/05/18 Time of Encounter: 13:33 - Discharge Diagnosis (1) Syncope Priority: Primary Status: Acute Qualifiers: Syncope type: unspecified Qualified Code(s): R55 - Syncope and collapse (2) Chest pain Priority: Primary Status: Chronic Qualifiers: Chest pain type: unspecified Qualified Code(s): R07.9 - Chest pain, unspecified (3) Abnormal stress test Priority: Primary Status: Acute (4) COPD (chronic obstructive pulmonary disease) Priority: Primary Status: Acute Qualifiers: COPD type: chronic bronchitis Chronic bronchitis type: unspecified Qualified Code(s): J42 - Unspecified chronic bronchitis (5) History of pulmonary embolism Priority: Secondary Status: Chronic (6) Chronic hypoxemic respiratory failure Priority: Secondary Status: Chronic (7) Head injury due to trauma Priority: Secondary Status: Acute Qualifiers: Encounter type: initial encounter Qualified Code(s): S09.90XA - Unspecified injury of head, initial encounter (8) DVT prophylaxis Priority: Secondary Status: Acute Hospital course: Mr. Oliva is a 58 y/o M with known past medical history of COPD, DVT, HTN, PE s/p IVC filter, and TIA pt presented to ER with frequent syncopal episodes at home associated with the fall striking his head on the ground. He was admitted in the hospital placed him on air sampling and monitoring. No more syncopal episodes since he got admitted in the hospital. Since he is high risk for ACS, he did go for nuclear stress test which came back as abnormal. He was evaluated by cardiology who recommended LHC. His LHC showed normal CAD. We resumed his Coumadin for his PE and bridging with Lovenox. He did have severe COPD exacerbation which improved with IV steroids and frequent bronchodilator therapy. Pt was seen by PT / OT who recommend ECF placement, so will d/c him to ECF in stable condition today. - Time Spent with Patient Total time spent providing and/or coordinating discharge services: - Discharge Medications Prescriptions: New Enoxaparin [Lovenox] 140 mg SQ Q12H #6 syringe predniSONE [PredniSONE] 40 mg PO DAILY #10 tablet Continued DULoxetine [Cymbalta] 30 mg PO HS Atorvastatin [Lipitor] 10 mg PO HS Lisinopril [Zestril] 20 mg PO 1800 Metoprolol [Lopressor] 12.5 mg PO BID tablet Tizanidine HCl [Zanaflex] 4 mg PO TID PRN #10 capsule PRN Reason: Muscle Spasm Warfarin Sodium 7.5 mg PO FR Warfarin Sodium 5 mg PO SUMOTUWETHSA Albuterol Sulfate [Proventil Inhaler] 2 puff IH Q4HR PRN PRN Reason: Shortness Of Breath Levalbuterol Neb [Xopenex Neb] 1.25 mg IH Q6H PRN PRN Reason: Shortness Of Breath Tiotropium [place] [Spiriva Respimat] 2 inh IH DAILY Acetylcysteine 10% 2 ml IH Q4H PRN #10 inhsol PRN Reason: Cough Gabapentin [Neurontin] 300 mg PO TID 5 Days #15 capsule ALPRAZolam [Xanax 1 MG Tablet] 1 mg PO BID PRN 5 Days #10 tablet PRN Reason: Anxiety Changed Furosemide [Lasix] 40 mg PO DAILY #60 tablet HYDROcodone/Acet 5/325 mg [[place] 5-325 mg] 1 tab PO Q6HR PRN 5 Days #15 tablet PRN Reason: Moderate Pain Discontinued predniSONE [PredniSONE] 10 mg PO DAILY #20 tablet Home Medications: DULoxetine [Cymbalta] 30 mg PO HS 02/27/17 [History] Atorvastatin [Lipitor] 10 mg PO HS 03/23/17 [History] Lisinopril [Zestril] 20 mg PO 1800 03/23/17 [History] Metoprolol [Lopressor] 12.5 mg PO BID tablet 04/04/17 [Rx] Tizanidine HCl [Zanaflex] 4 mg PO TID PRN #10 capsule 04/04/17 [Rx] Albuterol Sulfate [Proventil Inhaler] 2 puff IH Q4HR PRN 08/03/18 [History] Levalbuterol Neb [Xopenex Neb] 1.25 mg IH Q6H PRN 08/03/18 [History] Warfarin Sodium 5 mg PO SUMOTUWETHSA 08/03/18 [History] Warfarin Sodium 7.5 mg PO FR 08/03/18 [History] Tiotropium [place] [Spiriva Respimat] 2 inh IH DAILY 09/23/18 [History] Acetylcysteine 10% 2 ml IH Q4H PRN #10 inhsol 09/26/18 [Rx] ALPRAZolam [Xanax 1 MG Tablet] 1 mg PO BID PRN 5 Days #10 tablet 10/05/18 [Rx] Enoxaparin [Lovenox] 140 mg SQ Q12H #6 syringe 10/05/18 [Rx] Furosemide [Lasix] 40 mg PO DAILY #60 tablet 10/05/18 [Rx] Gabapentin [Neurontin] 300 mg PO TID 5 Days #15 capsule 10/05/18 [Rx] HYDROcodone/Acet 5/325 mg [[place] 5-325 mg] 1 tab PO Q6HR PRN 5 Days #15 tablet 10/05/18 [Rx] predniSONE [PredniSONE] 40 mg PO DAILY #10 tablet 10/05/18 [Rx] Allergies/Adverse Reactions: Allergy/AdvReac Type Severity Reaction Status Date / Time No Known Allergies Allergy Verified 09/30/18 11:13 Date of admission: 10/02/18 14:50 Primary care physician: Srinivas Pearce DO Consults: 09/30/18 01:43 Consult to Nurse Navigator [CONS] Routine Comment: 09/30/18 02:34 Consult to Occupational Therapy [CONS] Routine Comment: Evaluate, develop and implement POC Reason for Consult: Dizziness, syncope, falls at home. Head injury Does patient have active BEDREST order?: No Is patient medically & hemodynamically stable?: Yes Patient assessed for mobility or mobilized this visit?: No Consult to Physical Therapy [CONS] Routine Comment: Evaluate, develop and implement POC Reason for Consult: Dizziness, syncope, falls at home. Head injury Does patient have active BEDREST order?: No Is patient medically & hemodynamically stable?: Yes Patient assessed for mobility or mobilized this visit?: No 10/01/18 15:09 Consult to Linen Room Attendant [CONS] Routine Reason for SW Consult: PT/OT RECOMMEND IP SWING 10/03/18 11:02 Consult to Cardiology [CONS] Routine Comment: Consulting Provider: Cardiology Ailin Reason for Consult: Abnormal stress test Time Notified: 11:02 Call Completed: Yes - Constitutional Vitals: Temp Pulse Resp BP Pulse Ox 97.9 F 93 17 144/73 94 10/05/18 10:49 10/05/18 10:49 10/05/18 11:31 10/05/18 10:49 10/05/18 11:31 General appearance: Present: cooperative, A&O X 3, pleasant, no acute distress, answers questions appropriately Exam: Gen: Alert, awake, Oriented to time,place and person Chest: Diminished breath sounds B/L, Mild wheezing, No crackles, No rales Heart: S1S2+ RRR No murmurs Abd: Soft, NT, BS +, No organomegaly Ext: No edema, pulses are palpable, No calf tenderness Neuro : No acute focal neuro deficits noticed Skin: No rash. - Patient Status Disposition: Transfer SNF Condition: Good - Discharge Instructions Follow Up With: Srinivas Pearce DO [Primary Care Provider] - 10/09/18 3:30 pm - Diet and Activity Activity: wear oxygen at all times Diet: low salt diet
[2018-10-05] MEDS ORDERED: Furosemide 40 MG/4 ML VIAL IVP ONE (13:34)
--- NOTE | 2018-10-05 13:58 | Physician Discharge Referral ---
ExtendedCare Referral Info Transfer To: ECF Provider in Charge after Transfer: PCP Institutional Level of Care: Skilled - Diagnosis (1) Syncope Status: Acute (2) Chest pain Status: Chronic (3) Abnormal stress test Status: Acute (4) COPD (chronic obstructive pulmonary disease) Status: Acute (5) History of pulmonary embolism Status: Chronic (6) Chronic hypoxemic respiratory failure Status: Chronic (7) Head injury due to trauma Status: Acute (8) DVT prophylaxis Status: Acute - Transfer Medications Prescriptions: Gabapentin [Neurontin] 300 mg PO TID 5 Days #15 capsule HYDROcodone/Acet 5/325 mg [[place] 5-325 mg] 1 tab PO Q6HR PRN 5 Days #15 tablet PRN Reason: Moderate Pain predniSONE [PredniSONE] 40 mg PO DAILY #10 tablet ALPRAZolam [Xanax 1 MG Tablet] 1 mg PO BID PRN 5 Days #10 tablet PRN Reason: Anxiety Home Medications: DULoxetine [Cymbalta] 30 mg PO HS 02/27/17 [History] Atorvastatin [Lipitor] 10 mg PO HS 03/23/17 [History] Lisinopril [Zestril] 20 mg PO 1800 03/23/17 [History] Metoprolol [Lopressor] 12.5 mg PO BID tablet 04/04/17 [Rx] Tizanidine HCl [Zanaflex] 4 mg PO TID PRN #10 capsule 04/04/17 [Rx] Albuterol Sulfate [Proventil Inhaler] 2 puff IH Q4HR PRN 08/03/18 [History] Levalbuterol Neb [Xopenex Neb] 1.25 mg IH Q6H PRN 08/03/18 [History] Warfarin Sodium 5 mg PO SUMOTUWETHSA 08/03/18 [History] Warfarin Sodium 7.5 mg PO FR 08/03/18 [History] Tiotropium [place] [Spiriva Respimat] 2 inh IH DAILY 09/23/18 [History] Acetylcysteine 10% 2 ml IH Q4H PRN #10 inhsol 09/26/18 [Rx] ALPRAZolam [Xanax 1 MG Tablet] 1 mg PO BID PRN 5 Days #10 tablet 10/05/18 [Rx] Enoxaparin [Lovenox] 140 mg SQ Q12H #6 syringe 07/19/19 [Rx] Furosemide [Lasix] 40 mg PO DAILY #60 tablet 10/05/18 [Rx] Gabapentin [Neurontin] 300 mg PO TID 5 Days #15 capsule 10/05/18 [Rx] HYDROcodone/Acet 5/325 mg [[place] 5-325 mg] 1 tab PO Q6HR PRN 5 Days #15 tablet 10/05/18 [Rx] predniSONE [PredniSONE] 40 mg PO DAILY #10 tablet 10/05/18 [Rx] Allergies/Adverse Reactions: Allergy/AdvReac Type Severity Reaction Status Date / Time No Known Allergies Allergy Verified 09/30/18 11:13 - Respiratory Orders Smoking Cessation: Smoking cessation has been advised. For more information, call the [place] Tobacco Quit Line at 8-086-HCFNNOW. CERTIFICATION: I certify that the transfer of the above named patient to an Extended Care Facility is necessary for the continuing treatment of the diagnosis listed. The above information is true and accurate reflection of patient's current condition. Confidential - Redisclosure prohibited without a patient's written consent.
[2018-10-05] MEDS ORDERED: *HR* Warfarin 7.5 MG TABLET PO ONE (18:00)
== END 2018-10-05 16:45 | DRG 287 ==
LOC: 3BNU 18:45 → EMEROOARM 18:45 → SUATTDRO 22:23 → 3BNU 22:41
PROVIDERS: ADMIT Family Medicine; ATTEND Family Medicine

== ENCOUNTER 2019-05-02 00:11 | Observation (INO) ==
[2019-05-02] MEDS ORDERED: Isovue-370 500 ML BOTTLE IVP ONE (00:18)
[2019-05-02] MEDS: Nitroglycerin 0.4 MG TAB.SUBL SL PRN ×3 (00:34→01:07)
[2019-05-02 00:35] LABS: Basophils # 0.1 K/mcL (0.0-0.2); Basophils % 0.5 %; Eosinophils # 0.2 K/mcL (0.0-0.6); Eosinophils % 1.8 %; Hematocrit 46.1 % (37.5-50.1); Hemoglobin 15.3 g/dL (12.9-16.9); Lymphocytes # 4.1 K/mcL (0.6-4.6); Lymphocytes % 32.4 %; Mean Corpuscular HGB Conc 33.2 g/dL (31.6-35.5); Mean Corpuscular Volume 90.4 fL (83.0-100.0); Monocytes # 1.2 K/mcL (0.0-1.3); Monocytes % 9.5 %; Platelet Count 272 K/mcL (140-400); Red Cell Distribution Width 14.6 % (11.5-14.5); Segmented Neutrophils % 54.8 %; White Blood Count 12.8 K/mcL (4.3-11.1)
[2019-05-02 00:43] LABS: INR 2.8; Prothrombin Time 32.2 Seconds (9.4-12.1)
[2019-05-02 00:45] LABS: Activated Partial Thrombo Time 42.8 Seconds (26.0-36.0)
[2019-05-02] MEDS ORDERED: Ipratropium/Albuterol Neb 3 ML IH ONE (00:46)
[2019-05-02 00:56] LABS: BUN/Creatinine Ratio 9 (6-26); Blood Urea Nitrogen 13 mg/dL (6-20); Calcium 9.5 mg/dL (8.6-10.3); Carbon Dioxide 29 mEq/L (23-29); Chloride 103 mEq/L (98-107); Glucose 130 mg/dL (70-105); Osmolality,Calculated 294 (280-300); Potassium 4.4 mEq/L (3.5-5.1); Sodium 141 mEq/L (136-145); eGFR For African Americans > 60 (> 60); eGFR For Non-African Americans 51 (> 60)
[2019-05-02 00:57] LABS: Troponin I < 0.03 ng/mL (< 0.04)
[2019-05-02] MEDS ORDERED: 0.9 % Sodium Chloride 1,000 ML IVC ONE (01:21)
[2019-05-02] MEDS ORDERED: Morphine Sulfate 2 MG/ML SYRINGE IVP ONE (02:28)
[2019-05-02] MEDS ORDERED: Ondansetron 4 MG/2 ML VIAL IVP PRN (03:15)
[2019-05-02] MEDS ORDERED: Acetaminophen 325 MG TABLET PO PRN (03:15)
[2019-05-02] MEDS ORDERED: Naloxone 0.4 MG/ML INJ IVP PRN (03:15)
[2019-05-02] MEDS: 0.9 % Sodium Chloride 1,000 ML IVC SCH ×2 (04:37→19:30)
[2019-05-02 04:59] LABS: Basophils # 0.1 K/mcL (0.0-0.2); Basophils % 0.6 %; Eosinophils # 0.3 K/mcL (0.0-0.6); Eosinophils % 2.3 %; Hematocrit 44.4 % (37.5-50.1); Hemoglobin 14.3 g/dL (12.9-16.9); Immature Granulocytes % 1.3 % (0-4); Lymphocytes # 4.5 K/mcL (0.6-4.6); Lymphocytes % 35.4 %; Mean Corpuscular HGB Conc 32.2 g/dL (31.6-35.5); Mean Corpuscular Hemoglobin 30.5 pg (28.0-33.3); Mean Corpuscular Volume 94.7 fL (83.0-100.0); Mean Platelet Volume 9.5 fL (9.4-12.4); Monocytes # 1.5 K/mcL (0.0-1.3); Monocytes % 11.9 %; Neutrophils # 6.2 K/mcL (1.6-8.9); Platelet Count 257 K/mcL (140-400); Red Blood Count 4.69 M/mcL (4.19-5.50); Red Cell Distribution Width 14.6 % (11.5-14.5); Segmented Neutrophils % 48.5 %; White Blood Count 12.8 K/mcL (4.3-11.1)
[2019-05-02 05:01] LABS: INR 2.8
[2019-05-02 05:19] LABS: BUN/Creatinine Ratio 12 (6-26); Blood Urea Nitrogen 15 mg/dL (6-20); Calcium 9.1 mg/dL (8.6-10.3); Carbon Dioxide 31 mEq/L (23-29); Chloride 101 mEq/L (98-107); Glucose 98 mg/dL (70-105); Magnesium 2.1 mg/dL (1.6-2.6); Osmolality,Calculated 289 (280-300); Potassium 4.7 mEq/L (3.5-5.1); Sodium 139 mEq/L (136-145); eGFR For African Americans > 60 (> 60); eGFR For Non-African Americans 57 (> 60)
[2019-05-02] MEDS: ALPRAZolam 1 MG TABLET PO PRN ×2 (06:32→20:47)
[2019-05-02] MEDS ORDERED: Perflutren Lipid Microsphere 1.3 ML in 0.9 % Sodium Chloride 8.7 ML IVP ONE (08:42)
[2019-05-02] MEDS: Gabapentin 300 MG CAPSULE PO SCH ×3 (08:44→20:47)
[2019-05-02] MEDS ORDERED: Tiotropium 18 MCG inhalation IH SCH (10:00)
[2019-05-02] MEDS: *HR* HYDROcodone/Acet 7.5/325 mg TABLET PO PRN ×2 (12:01→18:14)
[2019-05-02] MEDS ORDERED: *HR* Warfarin 5 MG TABLET PO SCH (18:00)
[2019-05-02 22:18] LABS: INR 3.3; Prothrombin Time 37.6 Seconds (9.4-12.1)
[2019-05-03] MEDS: tiZANidine 4 MG TABLET PO PRN ×3 (00:25→21:38)
[2019-05-03] MEDS: *HR* HYDROcodone/Acet 7.5/325 mg TABLET PO PRN ×4 (00:25→22:23)
[2019-05-03 05:02] LABS: Basophils # 0.1 K/mcL (0.0-0.2); Basophils % 0.7 %; Eosinophils # 0.3 K/mcL (0.0-0.6); Eosinophils % 4.4 %; Hematocrit 42.3 % (37.5-50.1); Hemoglobin 14.1 g/dL (12.9-16.9); Immature Granulocytes % 1.3 % (0-4); Lymphocytes # 3.1 K/mcL (0.6-4.6); Lymphocytes % 43.7 %; Mean Corpuscular HGB Conc 33.3 g/dL (31.6-35.5); Mean Platelet Volume 9.2 fL (9.4-12.4); Monocytes % 13.6 %; Neutrophils # 2.6 K/mcL (1.6-8.9); Platelet Count 229 K/mcL (140-400); Red Cell Distribution Width 14.6 % (11.5-14.5); Segmented Neutrophils % 36.3 %; White Blood Count 7.1 K/mcL (4.3-11.1)
[2019-05-03 05:12] LABS: BUN/Creatinine Ratio 15 (6-26); Blood Urea Nitrogen 13 mg/dL (6-20); Carbon Dioxide 26 mEq/L (23-29); Chloride 105 mEq/L (98-107); Glucose 103 mg/dL (70-105); Osmolality,Calculated 284 (280-300); Potassium 5.2 mEq/L (3.5-5.1); Sodium 137 mEq/L (136-145); eGFR For African Americans > 60 (> 60); eGFR For Non-African Americans > 60 (> 60)
[2019-05-03] MEDS ORDERED: Ipratropium/Albuterol Neb 3 ML IH PRN (07:09)
[2019-05-03 08:46] LABS: ABG Base Excess 4 mEq/L (-2 to 3); ABG HCO3 32 mEq/L (21-27); ABG Oxygen Saturation 94 % (95-98); ABG PCO2 66 mmHg (35-45); ABG PO2 80 mmHg (85-104); ABG TCO2 34 mEq/L (20-26)
[2019-05-03] MEDS: Gabapentin 300 MG CAPSULE PO SCH ×3 (08:56→21:38)
[2019-05-03] MEDS: ALPRAZolam 1 MG TABLET PO PRN ×2 (08:56→21:38)
[2019-05-03] MEDS ORDERED: predniSONE 20 MG TABLET PO ONE (09:18)
[2019-05-03] MEDS: Ipratropium/Albuterol Neb 3 ML IH SCH ×3 (11:28→20:13)
[2019-05-03 12:30] LABS: Adenovirus Not Detected (Not Detect); Bordetella Pertussis Not Detected (Not Detect); Chlamydophila pneumoniae Not Detected (Not Detect); Coronavirus 229E Not Detected (Not Detect); Coronavirus HKU1 Not Detected (Not Detect); Coronavirus NL63 Not Detected (Not Detect); Coronavirus OC43 Not Detected (Not Detect); Human Metapneumovirus Not Detected (Not Detect); Human Rhinovirus/Enterovirus Not Detected (Not Detect); Influenza A Subtype 2009 H1 Not Detected (Not Detect); Influenza B Not Detected (Not Detect); Mycoplasma pneumoniae Not Detected (Not Detect); Parainfluenza Virus 1 Not Detected (Not Detect); Parainfluenza Virus 2 Not Detected (Not Detect); Parainfluenza Virus 3 Not Detected (Not Detect); Parainfluenza Virus 4 Not Detected (Not Detect); Respiratory Syncytial Virus Not Detected (Not Detect)
[2019-05-03] MEDS ORDERED: *HR* Warfarin 5 MG TABLET PO SCH (18:00)
[2019-05-03] MEDS ORDERED: Warfarin perPT PO PRN (18:00)
[2019-05-04] MEDS: Ipratropium/Albuterol Neb 3 ML IH SCH ×3 (00:20→07:22)
[2019-05-04] MEDS: *HR* HYDROcodone/Acet 7.5/325 mg TABLET PO PRN (04:29)
[2019-05-04] MEDS ORDERED: ALPRAZolam 0.5 MG TABLET PO ONE (04:31)
[2019-05-04 06:42] VITALS: BP 101/59
[2019-05-04] MEDS: Gabapentin 300 MG CAPSULE PO SCH (09:55)
[2019-05-04 10:34] LABS: INR 2.1
[2019-05-04 10:47] LABS: BUN/Creatinine Ratio 16 (6-26); Blood Urea Nitrogen 14 mg/dL (6-20); Calcium 8.9 mg/dL (8.6-10.3); Carbon Dioxide 25 mEq/L (23-29); Chloride 102 mEq/L (98-107); Glucose 159 mg/dL (70-105); Osmolality,Calculated 284 (280-300); Potassium 4.2 mEq/L (3.5-5.1); Sodium 135 mEq/L (136-145); eGFR For African Americans > 60 (> 60); eGFR For Non-African Americans > 60 (> 60)
== END 2019-05-04 10:55 | disposition home or self-care (01) ==
LOC: EMEROOARM 00:11 → 3ANU 00:11 → SUATTDRO 02:58 → 3ANU 03:30
PROVIDERS: ADMIT Internal Medicine; ATTEND Internal Medicine

== ENCOUNTER 2020-11-22 15:32 | Inpatient (IN) ==
[2020-11-22] MEDS ORDERED: predniSONE 20 MG TABLET PO ONE (15:39)
[2020-11-22] MEDS ORDERED: Ipratropium/Albuterol Neb 3 ML IH ONE (15:39)
[2020-11-22] MEDS ORDERED: Acetaminophen 325 MG TABLET PO ONE (15:42)
[2020-11-22 16:10] LABS: Basophils # 0.1 K/mcL (0.0-0.2); Basophils % 0.4 %; Eosinophils # 0.2 K/mcL (0.0-0.6); Eosinophils % 1.3 %; Hematocrit 48.5 % (37.5-50.1); Hemoglobin 15.5 g/dL (12.9-16.9); Immature Granulocytes % 0.5 % (0-4); Lymphocytes # 1.6 K/mcL (0.6-4.6); Lymphocytes % 11.2 %; Mean Corpuscular Hemoglobin 31.1 pg (28.0-33.3); Mean Corpuscular Volume 97.2 fL (83.0-100.0); Mean Platelet Volume 9.7 fL (9.4-12.4); Monocytes # 1.7 K/mcL (0.0-1.3); Monocytes % 11.7 %; Neutrophils # 10.7 K/mcL (1.6-8.9); Platelet Count 237 K/mcL (140-400); Red Blood Count 4.99 M/mcL (4.19-5.50); Red Cell Distribution Width 13.8 % (11.5-14.5); Segmented Neutrophils % 74.9 %; White Blood Count 14.2 K/mcL (4.3-11.1)
[2020-11-22 16:21] LABS: INR 1.6; Prothrombin Time 18.7 Seconds (9.4-12.1)
[2020-11-22 16:28] LABS: BUN/Creatinine Ratio 12 (6-26); Blood Urea Nitrogen 12 mg/dL (6-20); Calcium 9.2 mg/dL (8.6-10.3); Carbon Dioxide 32 mEq/L (23-29); Chloride 101 mEq/L (98-107); Glucose 144 mg/dL (70-105); Osmolality,Calculated 288 (280-300); Potassium 4.5 mEq/L (3.5-5.1); Sodium 138 mEq/L (136-145); eGFR For African Americans > 60 (> 60); eGFR For Non-African Americans > 60 (> 60)
[2020-11-22 16:29] LABS: Troponin I < 0.03 ng/mL (< 0.04)
[2020-11-22 16:46] LABS: Influenza A PCR Negative (Negative); Influenza B PCR Negative (Negative); Resp. Syncytial Virus PCR Negative (Negative); SARS-CoV-2 by PCR (In House) Negative (Negative)
[2020-11-22] MEDS ORDERED: Azithromycin 250 MG TABLET PO STA (16:58)
[2020-11-22] MEDS ORDERED: cefTRIAXone 1,000 MG in Water for inj. (sterile) 10 ML IVP SCH (17:00)
[2020-11-22] MEDS ORDERED: 0.9 % Sodium Chloride 1,000 ML IVC SCH (17:45)
[2020-11-22] MEDS ORDERED: Levalbuterol Neb 1.25 MG/3 ML IH PRN (17:49)
[2020-11-22] MEDS ORDERED: Ibuprofen 400 MG TABLET PO PRN (17:54)
[2020-11-22] MEDS ORDERED: Ondansetron 4 MG/2 ML VIAL IVP PRN (17:54)
[2020-11-22] MEDS ORDERED: Melatonin 3 MG TABLET PO PRN (17:54)
[2020-11-22] MEDS ORDERED: Warfarin perPT PO PRN (18:00)
[2020-11-22] MEDS ORDERED: *HR* Warfarin 4 MG TABLET PO ONE (18:30)
[2020-11-22] MEDS: Gabapentin 300 MG CAPSULE PO SCH (19:21)
[2020-11-22] MEDS: Acetaminophen 325 MG TABLET PO PRN (19:22)
[2020-11-22] MEDS: ALPRAZolam 1 MG TABLET PO PRN (22:32)
[2020-11-22 23:04] LABS: Bilirubin,Urine Negative (Negative); Blood,Urine Negative (Negative); Clarity,Urine Clear (Clear); Color,Urine Colorless (Yellow); Glucose,Urine (UA) 30 mg/dL (Normal); Ketones,Urine Negative (Negative); Leukocyte Esterase,Urine Negative (Negative); Nitrite,Urine Negative (Negative); PH,Urine 7.5 pH Units (5.0-8.0); Protein,Urine Negative (Neg-Trace); RBC,Urine 0-3 per hpf (0-3); Specific Gravity,Urine 1.006 (1.010-1.025); Urobilinogen,Urine Normal (Normal); WBC,Urine 0-3 per hpf (0-3)
[2020-11-23] MEDS ORDERED: Menthol 1 EACH LOZENGE PO PRN (00:55)
[2020-11-23 03:11] LABS: Hematocrit 44.3 % (37.5-50.1); Hemoglobin 14.1 g/dL (12.9-16.9); Mean Corpuscular HGB Conc 31.8 g/dL (31.6-35.5); Mean Corpuscular Hemoglobin 30.7 pg (28.0-33.3); Mean Corpuscular Volume 96.3 fL (83.0-100.0); Mean Platelet Volume 9.8 fL (9.4-12.4); Platelet Count 215 K/mcL (140-400); Red Cell Distribution Width 13.7 % (11.5-14.5); White Blood Count 12.1 K/mcL (4.3-11.1)
[2020-11-23 03:18] LABS: INR 1.5; Prothrombin Time 17.1 Seconds (9.4-12.1)
[2020-11-23 03:25] LABS: BUN/Creatinine Ratio 15 (6-26); Blood Urea Nitrogen 13 mg/dL (6-20); Calcium 8.9 mg/dL (8.6-10.3); Carbon Dioxide 27 mEq/L (23-29); Chloride 105 mEq/L (98-107); Glucose 158 mg/dL (70-105); Magnesium 2.1 mg/dL (1.6-2.6); Osmolality,Calculated 287 (280-300); Potassium 4.3 mEq/L (3.5-5.1); Sodium 137 mEq/L (136-145); eGFR For African Americans > 60 (> 60); eGFR For Non-African Americans > 60 (> 60)
[2020-11-23] MEDS: Tiotropium 10 INH DOSE IH SCH (07:22)
[2020-11-23] MEDS: Acetaminophen 325 MG TABLET PO PRN (08:35)
[2020-11-23] MEDS: Azithromycin 250 MG TABLET PO SCH (08:35)
[2020-11-23] MEDS: lisinopriL 20 MG TABLET PO SCH (08:35)
[2020-11-23] MEDS: predniSONE 20 MG TABLET PO SCH (08:35)
[2020-11-23] MEDS: Benzonatate 100 MG CAPSULE PO PRN ×2 (08:35→22:01)
[2020-11-23] MEDS: Gabapentin 300 MG CAPSULE PO SCH ×3 (08:36→20:02)
[2020-11-23] MEDS: ALPRAZolam 1 MG TABLET PO PRN ×2 (08:39→22:01)
[2020-11-23] MEDS: *HR* HYDROcodone/Acet 5/325 mg TABLET PO PRN ×2 (11:55→20:02)
[2020-11-23] MEDS: GuaiFENesin/Codeine Oral Soln 5 ML UDC PO PRN ×2 (11:55→20:01)
[2020-11-23] MEDS ORDERED: cefTRIAXone 1,000 MG in Water for inj. (sterile) 10 ML IVP SCH ×2 (12:00→17:00)
[2020-11-23] MEDS ORDERED: *HR* Warfarin 4 MG TABLET PO ONE (18:00)
[2020-11-24 02:51] VITALS: PULSE 59
[2020-11-24] MEDS: GuaiFENesin/Codeine Oral Soln 5 ML UDC PO PRN (02:51)
[2020-11-24] MEDS: *HR* HYDROcodone/Acet 5/325 mg TABLET PO PRN ×2 (02:55→08:10)
[2020-11-24 03:38] LABS: INR 1.8; Prothrombin Time 20.3 Seconds (9.4-12.1)
[2020-11-24 07:26] VITALS: BP 106/73; TEMP 97.7; O2SAT 100
[2020-11-24] MEDS: Gabapentin 300 MG CAPSULE PO SCH (07:53)
[2020-11-24] MEDS: lisinopriL 20 MG TABLET PO SCH (07:53)
[2020-11-24] MEDS: Azithromycin 250 MG TABLET PO SCH (07:53)
[2020-11-24] MEDS: predniSONE 20 MG TABLET PO SCH (07:55)
[2020-11-24] MEDS: Tiotropium 10 INH DOSE IH SCH (08:04)
[2020-11-24] MEDS: Benzonatate 100 MG CAPSULE PO PRN (08:10)
[2020-11-24] MEDS ORDERED: *HR* Warfarin 4 MG TABLET PO ONE (18:00)
== END 2020-11-24 12:40 | disposition home or self-care (01) | DRG 871 ==
LOC: EMEROOARM 15:32 → 3BNU 15:32 → SUATTDRO 11-23 12:22
PROVIDERS: ADMIT Internal Medicine; ATTEND Internal Medicine

== ENCOUNTER 2021-04-26 18:01 | Inpatient (IN) ==
[2021-04-26] MEDS ORDERED: Ipratropium/Albuterol Neb 3 ML IH ONE (18:50)
[2021-04-26] MEDS ORDERED: Furosemide 40 MG/4 ML VIAL IVP ONE (18:51)
[2021-04-26 19:27] LABS: Basophils # 0.1 K/mcL (0.0-0.2); Basophils % 0.4 %; Eosinophils # 0.2 K/mcL (0.0-0.6); Eosinophils % 1.7 %; Hematocrit 42.9 % (37.5-50.1); Hemoglobin 13.6 g/dL (12.9-16.9); Immature Granulocytes % 0.7 % (0-4); Lymphocytes # 2.1 K/mcL (0.6-4.6); Lymphocytes % 16.4 %; Mean Corpuscular HGB Conc 31.7 g/dL (31.6-35.5); Mean Corpuscular Hemoglobin 31.1 pg (28.0-33.3); Mean Corpuscular Volume 97.9 fL (83.0-100.0); Mean Platelet Volume 9.1 fL (9.4-12.4); Neutrophils # 9.3 K/mcL (1.6-8.9); Platelet Count 292 K/mcL (140-400); Red Blood Count 4.38 M/mcL (4.19-5.50); Red Cell Distribution Width 13.2 % (11.5-14.5); Segmented Neutrophils % 72.8 %; White Blood Count 12.7 K/mcL (4.3-11.1)
[2021-04-26 19:27] LABS: VBG HCO3 33 mEq/L (21-27); VBG PCO2 71 mmHg (41-51); VBG PH 7.27 pH Units (7.32-7.42); VBG PO2 82 mmHg (25-50)
[2021-04-26 19:33] LABS: INR 2.7; Prothrombin Time 29.5 Seconds (9.4-12.1)
[2021-04-26 19:36] LABS: Activated Partial Thrombo Time 33.8 Seconds (26.0-36.0)
[2021-04-26 19:48] LABS: Alanine Aminotransferase 25 Units/L (7-52); Albumin 3.8 g/dL (3.5-5.7); Albumin/Globulin Ratio 1.1 (1.1-2.2); Alkaline Phosphatase 89 Units/L (34-104); Aspartate Amino Transferase 20 Units/L (13-39); BUN/Creatinine Ratio 8 (6-26); Bilirubin,Indirect 0.3 mg/dL (0.0-1.0); Bilirubin,Total 0.3 mg/dL (0.3-1.0); Blood Urea Nitrogen 7 mg/dL (8-23); Calcium 9.6 mg/dL (8.6-10.3); Carbon Dioxide 32 mEq/L (23-29); Chloride 99 mEq/L (98-107); Globulin 3.6 g/dL (2.4-3.5); Glucose 129 mg/dL (70-105); Osmolality,Calculated 282 (280-300); Potassium 3.9 mEq/L (3.5-5.1); Sodium 136 mEq/L (136-145); Total Protein 7.4 g/dL (6.4-8.9); Troponin I < 0.03 ng/mL (< 0.04); eGFR For African Americans > 60 (> 60); eGFR For Non-African Americans > 60 (> 60)
[2021-04-26 21:13] LABS: Influenza A PCR Negative (Negative); Influenza B PCR Negative (Negative); Resp. Syncytial Virus PCR Negative (Negative)
[2021-04-26 21:35] LABS: SARS-CoV-2 by PCR (In House) Negative (Negative)
[2021-04-26 21:55] LABS: Blood Gas VT 500 cc; Mixed Venous Blood pCO2 69 mmHg (44-46); Mixed Venous Blood pH 7.29 pH Units (7.34-7.36); Mixed Venous Blood pO2 36 mmHg (35-45)
[2021-04-26 22:18] LABS: VBG HCO3 34 mEq/L (21-27); VBG PCO2 74 mmHg (41-51); VBG PH 7.27 pH Units (7.32-7.42); VBG PO2 144 mmHg (25-50)
[2021-04-26] MEDS ORDERED: Acetaminophen 325 MG TABLET PO PRN (22:22)
[2021-04-26] MEDS ORDERED: Naloxone 0.4 MG/ML INJ IVP PRN (22:22)
[2021-04-26] MEDS ORDERED: *HR* Promethazine 25 MG/ML VIAL IM PRN (22:22)
[2021-04-26] MEDS ORDERED: Saliva Stimulant 44.3ml BOTTLE PO PRN (22:29)
[2021-04-26] MEDS ORDERED: *HR* LORazepam 0.5 MG TABLET PO SCH (23:45)
[2021-04-27] MEDS: methylPREDNISolone 125 MG/2 ML VIAL IVP SCH ×4 (00:15→23:21)
[2021-04-27] MEDS: ALPRAZolam 1 MG TABLET PO SCH ×2 (00:19→08:02)
[2021-04-27] MEDS ORDERED: Perflutren Lipid Microsphere 1.3 ML in 0.9 % Sodium Chloride 8.7 ML IVP PRN (01:41)
[2021-04-27 03:23] LABS: Basophils % 0.2 %; Hematocrit 42.8 % (37.5-50.1); Hemoglobin 13.7 g/dL (12.9-16.9); Lymphocytes # 1.1 K/mcL (0.6-4.6); Lymphocytes % 12.4 %; Mean Corpuscular Hemoglobin 31.1 pg (28.0-33.3); Mean Corpuscular Volume 97.3 fL (83.0-100.0); Mean Platelet Volume 9.3 fL (9.4-12.4); Monocytes # 0.1 K/mcL (0.0-1.3); Monocytes % 0.8 %; Neutrophils # 7.8 K/mcL (1.6-8.9); Platelet Count 306 K/mcL (140-400); Red Cell Distribution Width 13.3 % (11.5-14.5); Segmented Neutrophils % 85.6 %; White Blood Count 9.1 K/mcL (4.3-11.1)
[2021-04-27 03:32] LABS: INR 2.8; Prothrombin Time 30.5 Seconds (9.4-12.1)
[2021-04-27 03:46] LABS: Alanine Aminotransferase 24 Units/L (7-52); Albumin 3.9 g/dL (3.5-5.7); Alkaline Phosphatase 90 Units/L (34-104); Aspartate Amino Transferase 17 Units/L (13-39); BUN/Creatinine Ratio 9 (6-26); Bilirubin,Total 0.3 mg/dL (0.3-1.0); Blood Urea Nitrogen 9 mg/dL (8-23); Calcium 9.6 mg/dL (8.6-10.3); Carbon Dioxide 31 mEq/L (23-29); Chloride 96 mEq/L (98-107); Globulin 3.8 g/dL (2.4-3.5); Glucose 186 mg/dL (70-105); Osmolality,Calculated 282 (280-300); Phosphorous 2.9 mg/dL (2.7-4.5); Potassium 4.9 mEq/L (3.5-5.1); Sodium 134 mEq/L (136-145); Total Protein 7.7 g/dL (6.4-8.9); eGFR For African Americans > 60 (> 60); eGFR For Non-African Americans > 60 (> 60)
[2021-04-27] MEDS ORDERED: Ipratropium/Albuterol Neb 3 ML IH SCH ×2 (04:00)
[2021-04-27] MEDS ORDERED: Dextrose Gel 15 GM/37.5 ML TUBE PO PRN ×2 (05:30)
[2021-04-27] MEDS ORDERED: *HR* Dextrose 50 % in Water (Syg) 50 ML SYRINGE IVP PRN (05:30)
[2021-04-27] MEDS ORDERED: D5% in Water 1,000 ML IVC PRN (05:30)
[2021-04-27] MEDS: Budesonide/Formoterol 160/4.5 1 PUFF INH IH SCH ×2 (07:33→20:14)
[2021-04-27] MEDS: Ipratropium/Albuterol Neb 3 ML IH SCH ×5 (07:33→23:52)
[2021-04-27 07:56] LABS: Adenovirus Not Detected (Not Detect); Bordetella Pertussis Not Detected (Not Detect); Chlamydophila pneumoniae Not Detected (Not Detect); Coronavirus 229E Not Detected (Not Detect); Coronavirus HKU1 Not Detected (Not Detect); Coronavirus NL63 Not Detected (Not Detect); Coronavirus OC43 Not Detected (Not Detect); Human Metapneumovirus Not Detected (Not Detect); Human Rhinovirus/Enterovirus Not Detected (Not Detect); Influenza A Subtype 2009 H1 Not Detected (Not Detect); Influenza B Not Detected (Not Detect); Mycoplasma pneumoniae Not Detected (Not Detect); Parainfluenza Virus 1 Not Detected (Not Detect); Parainfluenza Virus 2 Not Detected (Not Detect); Parainfluenza Virus 3 Not Detected (Not Detect); Parainfluenza Virus 4 Not Detected (Not Detect); Respiratory Syncytial Virus Not Detected (Not Detect); SARS-CoV-2 Not Detected (Not Detect)
[2021-04-27] MEDS: Multivit/Ca/Min/Fe/FA 1 TAB TABLET PO SCH (08:03)
[2021-04-27] MEDS: Gabapentin 300 MG CAPSULE PO SCH ×3 (08:03→20:52)
[2021-04-27] MEDS: lisinopriL 20 MG TABLET PO SCH (08:03)
[2021-04-27] MEDS: Chlorhexidine Rinse 15 ML MOUTHWASH MM SCH ×2 (08:04→20:52)
[2021-04-27] MEDS ORDERED: Azithromycin 250 MG TABLET PO SCH (09:00)
[2021-04-27] MEDS ORDERED: cefTRIAXone 1,000 MG in 0.9 % Sodium Chloride Mini Bag 100 ML IVPB SCH (09:00)
[2021-04-27 11:44] LABS: ABG Base Excess 5 mEq/L (-2 to 3); ABG HCO3 33 mEq/L (21-27); ABG Oxygen Saturation 93 % (95-98); ABG PCO2 58 mmHg (35-45); ABG PH 7.36 pH Units (7.32-7.45); ABG PO2 71 mmHg (85-104); ABG TCO2 35 mEq/L (20-26)
[2021-04-27] MEDS: levoFLOXacin 750 MG TABLET PO SCH (11:51)
[2021-04-27] MEDS ORDERED: Fluticasone Propionate Nasal 50 MCG/SPRAY BOTTLE NS PRN (17:39)
[2021-04-27] MEDS ORDERED: Warfarin perPT PO PRN (18:00)
[2021-04-27] MEDS ORDERED: *HR* Warfarin 5 MG TABLET PO ONE (18:00)
[2021-04-27] MEDS: ALPRAZolam 1 MG TABLET PO PRN (20:51)
[2021-04-28 01:15] LABS: Hematocrit 39.6 % (37.5-50.1); Hemoglobin 12.5 g/dL (12.9-16.9); Mean Corpuscular HGB Conc 31.6 g/dL (31.6-35.5); Mean Corpuscular Hemoglobin 30.9 pg (28.0-33.3); Mean Corpuscular Volume 97.8 fL (83.0-100.0); Mean Platelet Volume 9.5 fL (9.4-12.4); Platelet Count 319 K/mcL (140-400); Red Blood Count 4.05 M/mcL (4.19-5.50); Red Cell Distribution Width 13.3 % (11.5-14.5); White Blood Count 10.5 K/mcL (4.3-11.1)
[2021-04-28 01:24] LABS: INR 2.6
[2021-04-28 01:36] LABS: VBG HCO3 32 mEq/L (21-27); VBG PCO2 61 mmHg (41-51); VBG PH 7.33 pH Units (7.32-7.42); VBG PO2 43 mmHg (25-50)
[2021-04-28 01:42] LABS: BUN/Creatinine Ratio 20 (6-26); Blood Urea Nitrogen 21 mg/dL (8-23); Calcium 9.2 mg/dL (8.6-10.3); Carbon Dioxide 29 mEq/L (23-29); Chloride 95 mEq/L (98-107); Glucose 252 mg/dL (70-105); Osmolality,Calculated 290 (280-300); Potassium 4.7 mEq/L (3.5-5.1); Sodium 134 mEq/L (136-145); eGFR For African Americans > 60 (> 60); eGFR For Non-African Americans > 60 (> 60)
[2021-04-28] MEDS: Ipratropium/Albuterol Neb 3 ML IH SCH ×6 (04:01→23:46)
[2021-04-28 05:16] LABS: ABG Base Excess 6 mEq/L (-2 to 3); ABG HCO3 34 mEq/L (21-27); ABG Oxygen Saturation 86 % (95-98); ABG PCO2 62 mmHg (35-45); ABG PH 7.34 pH Units (7.32-7.45); ABG PO2 56 mmHg (85-104); ABG TCO2 36 mEq/L (20-26)
[2021-04-28] MEDS: ALPRAZolam 1 MG TABLET PO PRN ×2 (05:44→20:54)
[2021-04-28] MEDS: methylPREDNISolone 125 MG/2 ML VIAL IVP SCH ×2 (05:44→14:26)
[2021-04-28] MEDS: Budesonide/Formoterol 160/4.5 1 PUFF INH IH SCH ×2 (07:31→20:00)
[2021-04-28] MEDS: Chlorhexidine Rinse 15 ML MOUTHWASH MM SCH ×2 (08:59→20:54)
[2021-04-28] MEDS: lisinopriL 20 MG TABLET PO SCH (09:00)
[2021-04-28] MEDS: levoFLOXacin 750 MG TABLET PO SCH (09:00)
[2021-04-28] MEDS: Gabapentin 300 MG CAPSULE PO SCH ×3 (09:01→20:54)
[2021-04-28] MEDS: Multivit/Ca/Min/Fe/FA 1 TAB TABLET PO SCH (09:01)
[2021-04-28] MEDS ORDERED: *HR* Warfarin 5 MG TABLET PO ONE (18:00)
[2021-04-29 01:25] LABS: Hemoglobin 12.6 g/dL (12.9-16.9); Mean Corpuscular HGB Conc 32.3 g/dL (31.6-35.5); Mean Platelet Volume 9.3 fL (9.4-12.4); Platelet Count 347 K/mcL (140-400); Red Blood Count 3.94 M/mcL (4.19-5.50); Red Cell Distribution Width 13.7 % (11.5-14.5); White Blood Count 12.6 K/mcL (4.3-11.1)
[2021-04-29 01:36] LABS: Prothrombin Time 22.6 Seconds (9.4-12.1)
[2021-04-29 01:45] LABS: BUN/Creatinine Ratio 25 (6-26); Blood Urea Nitrogen 27 mg/dL (8-23); Calcium 9.3 mg/dL (8.6-10.3); Carbon Dioxide 31 mEq/L (23-29); Chloride 97 mEq/L (98-107); Glucose 322 mg/dL (70-105); Osmolality,Calculated 298 (280-300); Potassium 4.7 mEq/L (3.5-5.1); Sodium 135 mEq/L (136-145); eGFR For African Americans > 60 (> 60); eGFR For Non-African Americans > 60 (> 60)
[2021-04-29] MEDS: Ipratropium/Albuterol Neb 3 ML IH SCH ×6 (03:59→23:47)
[2021-04-29] MEDS: ALPRAZolam 1 MG TABLET PO PRN ×2 (05:06→20:12)
[2021-04-29] MEDS: Budesonide/Formoterol 160/4.5 1 PUFF INH IH SCH ×2 (07:25→20:05)
[2021-04-29] MEDS ORDERED: Insulin DETEMIR 100 UNIT/ML X5UNITS SUBQ STA (08:12)
[2021-04-29] MEDS: Gabapentin 300 MG CAPSULE PO SCH ×3 (08:47→20:13)
[2021-04-29] MEDS: Multivit/Ca/Min/Fe/FA 1 TAB TABLET PO SCH (08:47)
[2021-04-29] MEDS: levoFLOXacin 750 MG TABLET PO SCH (08:47)
[2021-04-29] MEDS: lisinopriL 20 MG TABLET PO SCH (08:47)
[2021-04-29] MEDS: predniSONE 20 MG TABLET PO SCH (08:47)
[2021-04-29] MEDS: Chlorhexidine Rinse 15 ML MOUTHWASH MM SCH ×2 (08:47→20:13)
[2021-04-29] MEDS: *HR* HYDROcodone/Acet 5/325 mg TABLET PO PRN ×3 (10:01→23:12)
[2021-04-29 17:14] LABS: Hematocrit 40.8 % (37.5-50.1); Hemoglobin 12.8 g/dL (12.9-16.9)
[2021-04-29] MEDS ORDERED: *HR* Warfarin 7.5 MG TABLET PO ONE (18:00)
[2021-04-30] MEDS: Ipratropium/Albuterol Neb 3 ML IH SCH ×5 (03:45→19:51)
[2021-04-30] MEDS: *HR* HYDROcodone/Acet 5/325 mg TABLET PO PRN ×3 (05:43→18:41)
[2021-04-30] MEDS: ALPRAZolam 1 MG TABLET PO PRN ×2 (05:47→18:41)
[2021-04-30 05:52] LABS: Hematocrit 42.2 % (37.5-50.1); Hemoglobin 13.2 g/dL (12.9-16.9); Mean Corpuscular HGB Conc 31.3 g/dL (31.6-35.5); Mean Corpuscular Hemoglobin 31.4 pg (28.0-33.3); Mean Corpuscular Volume 100.2 fL (83.0-100.0); Mean Platelet Volume 9.3 fL (9.4-12.4); Platelet Count 372 K/mcL (140-400); Red Blood Count 4.21 M/mcL (4.19-5.50); White Blood Count 15.1 K/mcL (4.3-11.1)
[2021-04-30 06:02] LABS: INR 2.3; Prothrombin Time 25.5 Seconds (9.4-12.1)
[2021-04-30 06:19] LABS: BUN/Creatinine Ratio 27 (6-26); Blood Urea Nitrogen 24 mg/dL (8-23); Calcium 9.4 mg/dL (8.6-10.3); Carbon Dioxide 32 mEq/L (23-29); Chloride 98 mEq/L (98-107); Glucose 159 mg/dL (70-105); Osmolality,Calculated 287 (280-300); Sodium 135 mEq/L (136-145); eGFR For African Americans > 60 (> 60); eGFR For Non-African Americans > 60 (> 60)
[2021-04-30] MEDS: Budesonide/Formoterol 160/4.5 1 PUFF INH IH SCH ×2 (07:21→19:51)
[2021-04-30] MEDS: predniSONE 20 MG TABLET PO SCH (09:50)
[2021-04-30] MEDS: levoFLOXacin 750 MG TABLET PO SCH (09:50)
[2021-04-30] MEDS: lisinopriL 20 MG TABLET PO SCH (09:50)
[2021-04-30] MEDS: Chlorhexidine Rinse 15 ML MOUTHWASH MM SCH ×2 (09:51→20:06)
[2021-04-30] MEDS: Gabapentin 300 MG CAPSULE PO SCH ×3 (09:51→20:06)
[2021-04-30] MEDS: Multivit/Ca/Min/Fe/FA 1 TAB TABLET PO SCH (09:51)
[2021-04-30] MEDS ORDERED: Ipratropium/Albuterol Neb 3 ML IH PRN (09:55)
[2021-04-30] MEDS ORDERED: Budesonide Neb 0.25 MG/2 ML IH SCH (10:00)
[2021-04-30] MEDS: GuaiFENesin/Codeine Oral Soln 5 ML UDC PO PRN ×2 (12:22→18:41)
[2021-04-30] MEDS ORDERED: MethylPREDNISolone 40 MG/ML VIAL IVP SCH (18:00)
[2021-04-30] MEDS ORDERED: *HR* Warfarin 5 MG TABLET PO ONE (18:00)
[2021-04-30] MEDS: MethylPREDNISolone 40 MG/ML VIAL IVP SCH (18:41)
[2021-05-01] MEDS: Ipratropium/Albuterol Neb 3 ML IH SCH ×7 (00:13→23:31)
[2021-05-01] MEDS: *HR* HYDROcodone/Acet 5/325 mg TABLET PO PRN ×3 (04:01→17:33)
[2021-05-01] MEDS: GuaiFENesin/Codeine Oral Soln 5 ML UDC PO PRN ×2 (04:02→10:04)
[2021-05-01] MEDS: MethylPREDNISolone 40 MG/ML VIAL IVP SCH ×2 (05:40→17:33)
[2021-05-01 05:53] LABS: Basophils % 0.2 %; Hematocrit 40.9 % (37.5-50.1); Hemoglobin 12.7 g/dL (12.9-16.9); Immature Granulocytes % 1.4 % (0-4); Lymphocytes # 0.8 K/mcL (0.6-4.6); Lymphocytes % 8.1 %; Mean Corpuscular HGB Conc 31.1 g/dL (31.6-35.5); Mean Corpuscular Hemoglobin 31.2 pg (28.0-33.3); Mean Corpuscular Volume 100.5 fL (83.0-100.0); Mean Platelet Volume 9.3 fL (9.4-12.4); Monocytes # 0.6 K/mcL (0.0-1.3); Monocytes % 5.8 %; Neutrophils # 8.6 K/mcL (1.6-8.9); Platelet Count 329 K/mcL (140-400); Red Blood Count 4.07 M/mcL (4.19-5.50); Red Cell Distribution Width 14.2 % (11.5-14.5); Segmented Neutrophils % 84.5 %; White Blood Count 10.2 K/mcL (4.3-11.1)
[2021-05-01 05:57] LABS: INR 2.3
[2021-05-01 06:13] LABS: BUN/Creatinine Ratio 20 (6-26); Blood Urea Nitrogen 18 mg/dL (8-23); Calcium 9.2 mg/dL (8.6-10.3); Carbon Dioxide 31 mEq/L (23-29); Chloride 98 mEq/L (98-107); Glucose 265 mg/dL (70-105); Osmolality,Calculated 289 (280-300); Potassium 5.1 mEq/L (3.5-5.1); Sodium 134 mEq/L (136-145); eGFR For African Americans > 60 (> 60); eGFR For Non-African Americans > 60 (> 60)
[2021-05-01] MEDS: ALPRAZolam 1 MG TABLET PO PRN ×2 (06:45→19:57)
[2021-05-01] MEDS: Budesonide/Formoterol 160/4.5 1 PUFF INH IH SCH ×2 (07:49→19:26)
[2021-05-01] MEDS: Chlorhexidine Rinse 15 ML MOUTHWASH MM SCH ×2 (09:29→19:57)
[2021-05-01] MEDS: Multivit/Ca/Min/Fe/FA 1 TAB TABLET PO SCH (09:29)
[2021-05-01] MEDS: levoFLOXacin 750 MG TABLET PO SCH (09:30)
[2021-05-01] MEDS: Gabapentin 300 MG CAPSULE PO SCH ×3 (09:30→19:57)
[2021-05-01] MEDS: lisinopriL 20 MG TABLET PO SCH (09:30)
[2021-05-01] MEDS: GuaiFENesin/Codeine Oral Soln 5 ML UDC PO SCH (17:34)
[2021-05-01] MEDS ORDERED: GuaiFENesin/Codeine Oral Soln 5 ML UDC PO SCH (18:00)
[2021-05-01] MEDS ORDERED: *HR* Warfarin 5 MG TABLET PO ONE (18:00)
[2021-05-02] MEDS: GuaiFENesin/Codeine Oral Soln 5 ML UDC PO SCH ×4 (00:03→17:50)
[2021-05-02] MEDS: *HR* HYDROcodone/Acet 5/325 mg TABLET PO PRN ×4 (00:03→18:07)
[2021-05-02] MEDS: Ipratropium/Albuterol Neb 3 ML IH SCH ×6 (03:32→23:15)
[2021-05-02 04:55] LABS: Basophils % 0.2 %; Hemoglobin 13.1 g/dL (12.9-16.9); Lymphocytes % 7.8 %; Mean Corpuscular HGB Conc 31.2 g/dL (31.6-35.5); Mean Corpuscular Hemoglobin 30.9 pg (28.0-33.3); Mean Corpuscular Volume 99.1 fL (83.0-100.0); Mean Platelet Volume 9.3 fL (9.4-12.4); Monocytes # 0.7 K/mcL (0.0-1.3); Monocytes % 5.7 %; Neutrophils # 11.1 K/mcL (1.6-8.9); Platelet Count 349 K/mcL (140-400); Red Blood Count 4.24 M/mcL (4.19-5.50); Segmented Neutrophils % 85.3 %
[2021-05-02 05:00] LABS: INR 2.1; Prothrombin Time 22.9 Seconds (9.4-12.1)
[2021-05-02 05:10] LABS: BUN/Creatinine Ratio 24 (6-26); Blood Urea Nitrogen 21 mg/dL (8-23); Calcium 9.4 mg/dL (8.6-10.3); Carbon Dioxide 31 mEq/L (23-29); Chloride 98 mEq/L (98-107); Glucose 219 mg/dL (70-105); Osmolality,Calculated 290 (280-300); Potassium 4.7 mEq/L (3.5-5.1); Sodium 135 mEq/L (136-145); eGFR For African Americans > 60 (> 60); eGFR For Non-African Americans > 60 (> 60)
[2021-05-02] MEDS: MethylPREDNISolone 40 MG/ML VIAL IVP SCH ×2 (06:05→17:50)
[2021-05-02] MEDS: Budesonide/Formoterol 160/4.5 1 PUFF INH IH SCH ×2 (07:35→19:56)
[2021-05-02] MEDS: Chlorhexidine Rinse 15 ML MOUTHWASH MM SCH ×2 (09:03→21:06)
[2021-05-02] MEDS: lisinopriL 20 MG TABLET PO SCH (09:05)
[2021-05-02] MEDS: ALPRAZolam 1 MG TABLET PO PRN ×2 (09:05→21:06)
[2021-05-02] MEDS: Gabapentin 300 MG CAPSULE PO SCH ×3 (09:05→21:06)
[2021-05-02] MEDS: Multivit/Ca/Min/Fe/FA 1 TAB TABLET PO SCH (09:05)
[2021-05-02] MEDS: levoFLOXacin 750 MG TABLET PO SCH (09:05)
[2021-05-02] MEDS ORDERED: Furosemide 40 MG/4 ML VIAL IVP ONE (09:49)
[2021-05-02] MEDS ORDERED: *HR* Warfarin 5 MG TABLET PO ONE (18:00)
[2021-05-02] MEDS ORDERED: *HR* Warfarin 7.5 MG TABLET PO ONE (18:00)
[2021-05-03] MEDS: GuaiFENesin/Codeine Oral Soln 5 ML UDC PO SCH ×5 (00:10→23:19)
[2021-05-03] MEDS: *HR* HYDROcodone/Acet 5/325 mg TABLET PO PRN ×4 (00:10→19:50)
[2021-05-03 01:56] LABS: Basophils % 0.1 %; Hematocrit 40.5 % (37.5-50.1); Hemoglobin 13.2 g/dL (12.9-16.9); Immature Granulocytes % 1.3 % (0-4); Lymphocytes # 0.6 K/mcL (0.6-4.6); Lymphocytes % 5.7 %; Mean Corpuscular HGB Conc 32.6 g/dL (31.6-35.5); Mean Corpuscular Hemoglobin 31.6 pg (28.0-33.3); Mean Corpuscular Volume 96.9 fL (83.0-100.0); Mean Platelet Volume 9.1 fL (9.4-12.4); Monocytes # 0.7 K/mcL (0.0-1.3); Monocytes % 7.1 %; Platelet Count 333 K/mcL (140-400); Red Blood Count 4.18 M/mcL (4.19-5.50); Red Cell Distribution Width 14.1 % (11.5-14.5); Segmented Neutrophils % 85.8 %; White Blood Count 10.4 K/mcL (4.3-11.1)
[2021-05-03 02:05] LABS: INR 1.7; Prothrombin Time 19.3 Seconds (9.4-12.1)
[2021-05-03 02:17] LABS: BUN/Creatinine Ratio 28 (6-26); Blood Urea Nitrogen 26 mg/dL (8-23); Calcium 9.4 mg/dL (8.6-10.3); Carbon Dioxide 33 mEq/L (23-29); Chloride 94 mEq/L (98-107); Glucose 261 mg/dL (70-105); Osmolality,Calculated 290 (280-300); Potassium 5.2 mEq/L (3.5-5.1); Sodium 133 mEq/L (136-145); eGFR For African Americans > 60 (> 60); eGFR For Non-African Americans > 60 (> 60)
[2021-05-03] MEDS: Ipratropium/Albuterol Neb 3 ML IH SCH ×6 (04:22→23:34)
[2021-05-03] MEDS: MethylPREDNISolone 40 MG/ML VIAL IVP SCH ×2 (06:16→17:46)
[2021-05-03] MEDS: Budesonide/Formoterol 160/4.5 1 PUFF INH IH SCH ×2 (07:30→20:27)
[2021-05-03] MEDS: Gabapentin 300 MG CAPSULE PO SCH ×3 (09:03→19:50)
[2021-05-03] MEDS: lisinopriL 20 MG TABLET PO SCH (09:04)
[2021-05-03] MEDS: Chlorhexidine Rinse 15 ML MOUTHWASH MM SCH ×2 (09:04→19:49)
[2021-05-03] MEDS: Multivit/Ca/Min/Fe/FA 1 TAB TABLET PO SCH (09:04)
[2021-05-03] MEDS: ALPRAZolam 1 MG TABLET PO PRN ×2 (09:04→19:50)
[2021-05-03] MEDS: levoFLOXacin 750 MG TABLET PO SCH (09:07)
[2021-05-03] MEDS: Benzonatate 100 MG CAPSULE PO PRN ×2 (09:10→19:50)
[2021-05-03] MEDS ORDERED: *HR* Warfarin 7.5 MG TABLET PO ONE (18:00)
[2021-05-04 01:13] LABS: Basophils % 0.2 %; Hematocrit 39.9 % (37.5-50.1); Hemoglobin 13.1 g/dL (12.9-16.9); Immature Granulocytes % 1.4 % (0-4); Lymphocytes # 0.9 K/mcL (0.6-4.6); Lymphocytes % 7.1 %; Mean Corpuscular HGB Conc 32.8 g/dL (31.6-35.5); Mean Corpuscular Hemoglobin 31.4 pg (28.0-33.3); Mean Corpuscular Volume 95.7 fL (83.0-100.0); Mean Platelet Volume 9.1 fL (9.4-12.4); Monocytes # 1.3 K/mcL (0.0-1.3); Monocytes % 9.6 %; Neutrophils # 10.7 K/mcL (1.6-8.9); Platelet Count 330 K/mcL (140-400); Red Blood Count 4.17 M/mcL (4.19-5.50); Red Cell Distribution Width 14.2 % (11.5-14.5); Segmented Neutrophils % 81.7 %; White Blood Count 13.1 K/mcL (4.3-11.1)
[2021-05-04 01:25] LABS: Prothrombin Time 22.3 Seconds (9.4-12.1)
[2021-05-04 01:33] LABS: BUN/Creatinine Ratio 23 (6-26); Blood Urea Nitrogen 24 mg/dL (8-23); Calcium 9.3 mg/dL (8.6-10.3); Carbon Dioxide 33 mEq/L (23-29); Chloride 94 mEq/L (98-107); Glucose 251 mg/dL (70-105); Osmolality,Calculated 289 (280-300); Potassium 5.5 mEq/L (3.5-5.1); Sodium 133 mEq/L (136-145); eGFR For African Americans > 60 (> 60); eGFR For Non-African Americans > 60 (> 60)
[2021-05-04] MEDS: Ipratropium/Albuterol Neb 3 ML IH SCH ×4 (03:48→15:29)
[2021-05-04] MEDS: GuaiFENesin/Codeine Oral Soln 5 ML UDC PO SCH ×3 (05:42→18:04)
[2021-05-04] MEDS: *HR* HYDROcodone/Acet 5/325 mg TABLET PO PRN ×3 (05:42→18:04)
[2021-05-04] MEDS: MethylPREDNISolone 40 MG/ML VIAL IVP SCH ×2 (05:43→18:05)
[2021-05-04] MEDS ORDERED: *HR* Dextrose 50 % in Water (Syg) 50 ML SYRINGE IVP ONE (07:09)
[2021-05-04] MEDS ORDERED: Insulin Human Regular 10 UNIT in 0.9 % Sodium Chloride 10 ML IV ONE (07:09)
[2021-05-04] MEDS: Budesonide/Formoterol 160/4.5 1 PUFF INH IH SCH (07:31)
[2021-05-04] MEDS: Chlorhexidine Rinse 15 ML MOUTHWASH MM SCH (08:52)
[2021-05-04] MEDS: Calcium Gluconate 1gm/50mL 1 GM/50 ML BAG IVPB SCH ×2 (08:52→09:47)
[2021-05-04] MEDS: lisinopriL 20 MG TABLET PO SCH (08:53)
[2021-05-04] MEDS: ALPRAZolam 1 MG TABLET PO PRN (08:53)
[2021-05-04] MEDS: Gabapentin 300 MG CAPSULE PO SCH ×2 (08:53→15:15)
[2021-05-04] MEDS: Multivit/Ca/Min/Fe/FA 1 TAB TABLET PO SCH (08:53)
[2021-05-04 14:29] VITALS: O2SAT 95
[2021-05-04 14:32] LABS: BUN/Creatinine Ratio 24 (6-26); Blood Urea Nitrogen 25 mg/dL (8-23); Calcium 9.7 mg/dL (8.6-10.3); Carbon Dioxide 28 mEq/L (23-29); Chloride 93 mEq/L (98-107); Glucose 238 mg/dL (70-105); Osmolality,Calculated 290 (280-300); Sodium 134 mEq/L (136-145); eGFR For African Americans > 60 (> 60); eGFR For Non-African Americans > 60 (> 60)
[2021-05-04 16:06] VITALS: BP 128/78; PULSE 116; TEMP 98.2
[2021-05-04] MEDS ORDERED: *HR* Warfarin 7.5 MG TABLET PO ONE (18:00)
== END 2021-05-04 18:24 | disposition home or self-care (01) | DRG 189 ==
LOC: 3BNU 18:01 → EMEROOARM 18:01 → SUATTDRO 21:08 → 2ANU 21:45 → SUATTDRO 04-27
PROVIDERS: ADMIT Internal Medicine; ATTEND Internal Medicine

== ENCOUNTER 2021-07-28 14:07 | Inpatient (IN) ==
[2021-07-28] MEDS ORDERED: Ipratropium/Albuterol Neb 3 ML IH ONE (14:29)
[2021-07-28] MEDS ORDERED: Azithromycin 500 MG in 0.9 % Sodium Chloride 250 ML IVPB ONE (14:29)
[2021-07-28] MEDS ORDERED: cefTRIAXone 1,000 MG in 0.9 % Sodium Chloride 10 ML IVP ONE (14:29)
[2021-07-28] MEDS ORDERED: methylPREDNISolone 125 MG/2 ML VIAL IVP ONE (14:29)
[2021-07-28] MEDS ORDERED: Isovue-370 500 ML BOTTLE IVP ONE (14:31)
[2021-07-28 14:43] LABS: Basophils % 0.1 %; Eosinophils % 0.1 %; Hematocrit 43.8 % (37.5-50.1); Hemoglobin 13.8 g/dL (12.9-16.9); Immature Granulocytes % 0.3 % (0-4); Lymphocytes # 1.6 K/mcL (0.6-4.6); Mean Corpuscular HGB Conc 31.5 g/dL (31.6-35.5); Mean Corpuscular Hemoglobin 31.1 pg (28.0-33.3); Mean Corpuscular Volume 98.6 fL (83.0-100.0); Mean Platelet Volume 9.9 fL (9.4-12.4); Monocytes # 1.3 K/mcL (0.0-1.3); Monocytes % 7.4 %; Neutrophils # 14.3 K/mcL (1.6-8.9); Platelet Count 192 K/mcL (140-400); Red Blood Count 4.44 M/mcL (4.19-5.50); Red Cell Distribution Width 13.6 % (11.5-14.5); Segmented Neutrophils % 83.1 %; White Blood Count 17.3 K/mcL (4.3-11.1)
[2021-07-28 15:11] LABS: BUN/Creatinine Ratio 15 (6-26); Blood Urea Nitrogen 12 mg/dL (8-23); Calcium 9.2 mg/dL (8.6-10.3); Carbon Dioxide 36 mEq/L (23-29); Chloride 97 mEq/L (98-107); Glucose 144 mg/dL (70-105); Osmolality,Calculated 286 (280-300); Potassium 4.9 mEq/L (3.5-5.1); Sodium 137 mEq/L (136-145); Troponin I < 0.03 ng/mL (< 0.04); eGFR For African Americans > 60 (> 60); eGFR For Non-African Americans > 60 (> 60)
[2021-07-28 17:27] LABS: INR 1.3; Prothrombin Time 14.3 Seconds (9.4-12.1)
[2021-07-28 17:30] LABS: Activated Partial Thrombo Time 28.6 Seconds (26.0-36.0)
[2021-07-28] MEDS ORDERED: Ampicillin/Sulbactam 3,000 MG in 0.9 % Sodium Chloride Mini Bag 100 ML IVPB ONE (17:35)
[2021-07-28 18:12] LABS: Influenza A PCR Negative (Negative); Influenza B PCR Negative (Negative); Resp. Syncytial Virus PCR Negative (Negative)
[2021-07-28 18:23] LABS: SARS-CoV-2 by PCR (In House) Negative (Negative)
[2021-07-28] MEDS ORDERED: lisinopriL 20 MG TABLET PO PRN (21:00)
[2021-07-28] MEDS ORDERED: *HR* Warfarin 5 MG TABLET PO SCH (21:00)
[2021-07-28] MEDS: Gabapentin 300 MG CAPSULE PO SCH (23:28)
[2021-07-28] MEDS: Ampicillin/Sulbactam 3,000 MG in 0.9 % Sodium Chloride Mini Bag 100 ML IVPB SCH (23:28)
[2021-07-28] MEDS: Mirtazapine 15 MG TABLET PO SCH (23:28)
[2021-07-28] MEDS ORDERED: ALPRAZolam 1 MG TABLET PO ONE (23:46)
[2021-07-29] MEDS: Ipratropium/Albuterol Neb 3 ML IH SCH ×7 (00:12→23:17)
[2021-07-29] MEDS: MethylPREDNISolone 40 MG/ML VIAL IVP SCH ×2 (06:58→17:47)
[2021-07-29] MEDS: Ampicillin/Sulbactam 3,000 MG in 0.9 % Sodium Chloride Mini Bag 100 ML IVPB SCH ×3 (06:58→17:48)
[2021-07-29] MEDS: Budesonide/Formoterol 160/4.5 1 PUFF INH IH SCH (07:31)
[2021-07-29 08:21] LABS: Basophils % 0.1 %; Hematocrit 42.8 % (37.5-50.1); Hemoglobin 13.8 g/dL (12.9-16.9); Immature Granulocytes % 0.6 % (0-4); Lymphocytes # 1.3 K/mcL (0.6-4.6); Lymphocytes % 10.8 %; Mean Corpuscular HGB Conc 32.2 g/dL (31.6-35.5); Mean Corpuscular Hemoglobin 31.8 pg (28.0-33.3); Mean Corpuscular Volume 98.6 fL (83.0-100.0); Mean Platelet Volume 9.2 fL (9.4-12.4); Monocytes # 0.6 K/mcL (0.0-1.3); Monocytes % 4.7 %; Neutrophils # 10.3 K/mcL (1.6-8.9); Platelet Count 208 K/mcL (140-400); Red Blood Count 4.34 M/mcL (4.19-5.50); Red Cell Distribution Width 13.5 % (11.5-14.5); Segmented Neutrophils % 83.8 %; White Blood Count 12.3 K/mcL (4.3-11.1)
[2021-07-29 08:29] LABS: INR 1.2; Prothrombin Time 13.1 Seconds (9.4-12.1)
[2021-07-29] MEDS ORDERED: Lidocaine -MPF 2% 2 ML VIAL ONE (10:46)
[2021-07-29] MEDS ORDERED: *HR* FentaNYL (PF) 100 MCG/2 ML VIAL ONE (10:46)
[2021-07-29] MEDS ORDERED: Ondansetron 4 MG/2 ML VIAL ONE (10:46)
[2021-07-29] MEDS ORDERED: *HR* Propofol 200 MG/20 ML VIAL IVP ONE (10:46)
[2021-07-29] MEDS ORDERED: Lidocaine -MPF 4% 5 ML AMPUL ONE (10:46)
[2021-07-29] MEDS ORDERED: *HR* Etomidate 40 MG/20 ML VIAL IVP ONE (11:47)
[2021-07-29 12:58] LABS: ABG Base Excess 9 mEq/L (-2 to 3); ABG Chloride 102 mEq/L (98-107); ABG Glucose 169 mg/dL (60-95); ABG HCO3 34 mEq/L (21-27); ABG Ionized Calcium 1.21 mmol/L (1.15-1.35); ABG Oxygen Saturation 96 % (95-98); ABG PCO2 52 mmHg (35-45); ABG PH 7.43 pH Units (7.32-7.45); ABG PO2 78 mmHg (85-104); ABG TCO2 36 mEq/L (20-26)
[2021-07-29] MEDS: Gabapentin 300 MG CAPSULE PO SCH ×3 (14:02→20:45)
[2021-07-29] MEDS: ALPRAZolam 1 MG TABLET PO SCH (14:30)
[2021-07-29] MEDS ORDERED: D5% in Water 1,000 ML IVC PRN (17:32)
[2021-07-29] MEDS ORDERED: Dextrose 4 GM Chewable Tablets PO PRN ×2 (17:32)
[2021-07-29] MEDS: Chloraseptic Spray 177 ML BOTTLE MM PRN (17:32)
[2021-07-29] MEDS ORDERED: *HR* Dextrose 50 % in Water (Syg) 50 ML SYRINGE IVP PRN (17:32)
[2021-07-29] MEDS: Insulin LISPRO 300 UNITS/3 ML VIAL SUBQ SCH (17:47)
[2021-07-29 19:17] LABS: Appearance of Body Fluid Hazy (Clear); Volume of Body Fluid 18 mL
[2021-07-29] MEDS: Mirtazapine 15 MG TABLET PO SCH (20:45)
[2021-07-29] MEDS ORDERED: *HR* Warfarin 2.5 MG TABLET PO SCH (21:00)
[2021-07-30] MEDS: Ampicillin/Sulbactam 3,000 MG in 0.9 % Sodium Chloride Mini Bag 100 ML IVPB SCH ×4 (00:47→17:00)
[2021-07-30] MEDS: Ipratropium/Albuterol Neb 3 ML IH SCH ×6 (04:24→23:25)
[2021-07-30 04:45] LABS: Hematocrit 42.2 % (37.5-50.1); Hemoglobin 13.2 g/dL (12.9-16.9); Immature Granulocytes % 0.6 % (0-4); Lymphocytes # 1.1 K/mcL (0.6-4.6); Lymphocytes % 8.7 %; Mean Corpuscular HGB Conc 31.3 g/dL (31.6-35.5); Mean Corpuscular Hemoglobin 30.7 pg (28.0-33.3); Mean Corpuscular Volume 98.1 fL (83.0-100.0); Mean Platelet Volume 9.6 fL (9.4-12.4); Monocytes # 0.6 K/mcL (0.0-1.3); Monocytes % 4.3 %; Neutrophils # 11.4 K/mcL (1.6-8.9); Platelet Count 200 K/mcL (140-400); Red Cell Distribution Width 13.7 % (11.5-14.5); Segmented Neutrophils % 86.4 %; White Blood Count 13.1 K/mcL (4.3-11.1)
[2021-07-30 04:55] LABS: INR 1.1
[2021-07-30] MEDS: MethylPREDNISolone 40 MG/ML VIAL IVP SCH ×3 (06:07→21:33)
[2021-07-30] MEDS: Budesonide/Formoterol 160/4.5 1 PUFF INH IH SCH (07:28)
[2021-07-30] MEDS: Insulin LISPRO 300 UNITS/3 ML VIAL SUBQ SCH ×3 (07:38→17:00)
[2021-07-30] MEDS: ALPRAZolam 1 MG TABLET PO SCH (07:38)
[2021-07-30] MEDS: Gabapentin 300 MG CAPSULE PO SCH ×3 (07:38→21:32)
[2021-07-30] MEDS: *HR* OxyCODONE/APAP 5/325 TABLET PO PRN ×2 (12:27→21:33)
[2021-07-30] MEDS ORDERED: Warfarin perPT PO PRN (18:00)
[2021-07-30] MEDS ORDERED: *HR* Warfarin 2.5 MG TABLET PO ONE (18:00)
[2021-07-30] MEDS: Mirtazapine 15 MG TABLET PO SCH (21:33)
[2021-07-31] MEDS: Ampicillin/Sulbactam 3,000 MG in 0.9 % Sodium Chloride Mini Bag 100 ML IVPB SCH ×4 (00:17→17:59)
[2021-07-31 04:11] LABS: Basophils % 0.1 %; Hematocrit 39.3 % (37.5-50.1); Hemoglobin 12.5 g/dL (12.9-16.9); Immature Granulocytes % 0.6 % (0-4); Lymphocytes # 0.8 K/mcL (0.6-4.6); Lymphocytes % 5.3 %; Mean Corpuscular HGB Conc 31.8 g/dL (31.6-35.5); Mean Corpuscular Hemoglobin 31.4 pg (28.0-33.3); Mean Corpuscular Volume 98.7 fL (83.0-100.0); Mean Platelet Volume 9.7 fL (9.4-12.4); Monocytes # 0.8 K/mcL (0.0-1.3); Monocytes % 5.3 %; Neutrophils # 12.5 K/mcL (1.6-8.9); Platelet Count 215 K/mcL (140-400); Red Blood Count 3.98 M/mcL (4.19-5.50); Red Cell Distribution Width 13.7 % (11.5-14.5); Segmented Neutrophils % 88.7 %; White Blood Count 14.2 K/mcL (4.3-11.1)
[2021-07-31 04:23] LABS: Prothrombin Time 10.9 Seconds (9.4-12.1)
[2021-07-31] MEDS: Ipratropium/Albuterol Neb 3 ML IH SCH ×6 (04:53→23:04)
[2021-07-31] MEDS: MethylPREDNISolone 40 MG/ML VIAL IVP SCH ×3 (05:18→21:10)
[2021-07-31] MEDS: *HR* OxyCODONE/APAP 5/325 TABLET PO PRN ×3 (05:21→17:59)
[2021-07-31] MEDS: Budesonide/Formoterol 160/4.5 1 PUFF INH IH SCH (07:33)
[2021-07-31] MEDS: Gabapentin 300 MG CAPSULE PO SCH ×3 (07:47→21:10)
[2021-07-31] MEDS: ALPRAZolam 1 MG TABLET PO SCH (07:47)
[2021-07-31] MEDS: Insulin LISPRO 300 UNITS/3 ML VIAL SUBQ SCH ×4 (07:51→21:38)
[2021-07-31] MEDS: GuaiFENesin Liq 200 MG/10 ML UDC PO PRN ×2 (07:59→21:11)
[2021-07-31] MEDS: Acetaminophen 325 MG TABLET PO PRN (07:59)
[2021-07-31] MEDS ORDERED: *HR* Warfarin 2.5 MG TABLET PO ONE (18:00)
[2021-07-31] MEDS: Mirtazapine 15 MG TABLET PO SCH (21:10)
[2021-08-01] MEDS: Ampicillin/Sulbactam 3,000 MG in 0.9 % Sodium Chloride Mini Bag 100 ML IVPB SCH ×5 (00:19→23:18)
[2021-08-01] MEDS: *HR* OxyCODONE/APAP 5/325 TABLET PO PRN ×4 (00:20→18:33)
[2021-08-01] MEDS: Ipratropium/Albuterol Neb 3 ML IH SCH ×5 (03:35→20:22)
[2021-08-01] MEDS: MethylPREDNISolone 40 MG/ML VIAL IVP SCH ×2 (05:45→20:05)
[2021-08-01 06:03] LABS: Albumin 3.4 g/dL (3.5-5.7); Albumin/Globulin Ratio 1.3 (1.1-2.2); Bilirubin,Indirect 0.3 mg/dL (0.0-1.0); Bilirubin,Total 0.3 mg/dL (0.3-1.0); Globulin 2.7 g/dL (2.4-3.5); Total Protein 6.1 g/dL (6.4-8.9)
[2021-08-01 06:05] LABS: Basophils % 0.1 %; Hematocrit 41.8 % (37.5-50.1); Hemoglobin 13.2 g/dL (12.9-16.9); Immature Granulocytes % 0.8 % (0-4); Lymphocytes # 0.8 K/mcL (0.6-4.6); Lymphocytes % 6.2 %; Mean Corpuscular HGB Conc 31.6 g/dL (31.6-35.5); Mean Corpuscular Hemoglobin 31.2 pg (28.0-33.3); Mean Corpuscular Volume 98.8 fL (83.0-100.0); Mean Platelet Volume 9.5 fL (9.4-12.4); Monocytes # 0.6 K/mcL (0.0-1.3); Monocytes % 4.9 %; Neutrophils # 10.8 K/mcL (1.6-8.9); Platelet Count 220 K/mcL (140-400); Red Blood Count 4.23 M/mcL (4.19-5.50); Red Cell Distribution Width 13.9 % (11.5-14.5); White Blood Count 12.3 K/mcL (4.3-11.1)
[2021-08-01 06:22] LABS: Prothrombin Time 10.9 Seconds (9.4-12.1)
[2021-08-01] MEDS: Insulin LISPRO 300 UNITS/3 ML VIAL SUBQ SCH ×4 (07:50→20:04)
[2021-08-01] MEDS: ALPRAZolam 1 MG TABLET PO SCH (07:50)
[2021-08-01] MEDS: Gabapentin 300 MG CAPSULE PO SCH ×3 (07:50→20:05)
[2021-08-01] MEDS: Budesonide/Formoterol 160/4.5 1 PUFF INH IH SCH (07:55)
[2021-08-01] MEDS: GuaiFENesin Liq 200 MG/10 ML UDC PO PRN ×2 (12:30→18:33)
[2021-08-01] MEDS: *HR* Enoxaparin 150 MG/ML SYRINGE SQ SCH (17:50)
[2021-08-01] MEDS ORDERED: *HR* Warfarin 5 MG TABLET PO ONE (18:00)
[2021-08-01] MEDS: Mirtazapine 15 MG TABLET PO SCH (20:05)
[2021-08-02] MEDS: *HR* OxyCODONE/APAP 5/325 TABLET PO PRN ×4 (00:39→20:13)
[2021-08-02] MEDS: GuaiFENesin Liq 200 MG/10 ML UDC PO PRN ×4 (00:40→20:13)
[2021-08-02 03:01] LABS: Basophils % 0.1 %; Hematocrit 39.9 % (37.5-50.1); Hemoglobin 12.7 g/dL (12.9-16.9); Immature Granulocytes % 1.7 % (0-4); Lymphocytes # 0.7 K/mcL (0.6-4.6); Lymphocytes % 6.4 %; Mean Corpuscular HGB Conc 31.8 g/dL (31.6-35.5); Mean Corpuscular Hemoglobin 31.4 pg (28.0-33.3); Mean Corpuscular Volume 98.8 fL (83.0-100.0); Mean Platelet Volume 9.2 fL (9.4-12.4); Monocytes # 0.5 K/mcL (0.0-1.3); Monocytes % 4.8 %; Neutrophils # 9.5 K/mcL (1.6-8.9); Platelet Count 195 K/mcL (140-400); Red Blood Count 4.04 M/mcL (4.19-5.50); Red Cell Distribution Width 13.9 % (11.5-14.5); White Blood Count 10.9 K/mcL (4.3-11.1)
[2021-08-02] MEDS: Ipratropium/Albuterol Neb 3 ML IH SCH ×7 (03:22→23:21)
[2021-08-02 03:37] LABS: Prothrombin Time 11.4 Seconds (9.4-12.1)
[2021-08-02] MEDS: Ampicillin/Sulbactam 3,000 MG in 0.9 % Sodium Chloride Mini Bag 100 ML IVPB SCH ×4 (05:14→23:28)
[2021-08-02] MEDS: *HR* Enoxaparin 150 MG/ML SYRINGE SQ SCH ×2 (05:15→17:35)
[2021-08-02] MEDS: Budesonide/Formoterol 160/4.5 1 PUFF INH IH SCH ×2 (07:33→19:55)
[2021-08-02] MEDS: Gabapentin 300 MG CAPSULE PO SCH ×3 (08:06→20:13)
[2021-08-02] MEDS: ALPRAZolam 1 MG TABLET PO SCH (08:06)
[2021-08-02] MEDS: MethylPREDNISolone 40 MG/ML VIAL IVP SCH ×3 (08:06→20:19)
[2021-08-02] MEDS: Insulin LISPRO 300 UNITS/3 ML VIAL SUBQ SCH ×4 (08:07→20:19)
[2021-08-02] MEDS ORDERED: Lidocaine -MPF 2% 2 ML VIAL ONE ×3 (13:05→13:06)
[2021-08-02] MEDS ORDERED: Simethicone 40 MG/0.6 ML MLS IR ONE (14:09)
[2021-08-02] MEDS ORDERED: Ipratropium Neb 0.5 MG NEBULIZER IH PRN (14:11)
[2021-08-02] MEDS ORDERED: Fluconazole 400 MG/200 ML 400 MG/200 ML BAG IVPB ONE (15:09)
[2021-08-02] MEDS: Pantoprazole 40 MG VIAL IVP SCH (17:35)
[2021-08-02] MEDS ORDERED: *HR* Warfarin 5 MG TABLET PO ONE (18:00)
[2021-08-02] MEDS: Mirtazapine 15 MG TABLET PO SCH (20:13)
[2021-08-03] MEDS: GuaiFENesin Liq 200 MG/10 ML UDC PO PRN ×3 (02:42→21:53)
[2021-08-03] MEDS: *HR* OxyCODONE/APAP 5/325 TABLET PO PRN ×4 (02:42→21:53)
[2021-08-03 03:35] LABS: Basophils % 0.2 %; Hematocrit 41.4 % (37.5-50.1); Immature Granulocytes % 0.9 % (0-4); Lymphocytes # 0.5 K/mcL (0.6-4.6); Lymphocytes % 3.8 %; Mean Corpuscular HGB Conc 31.4 g/dL (31.6-35.5); Mean Corpuscular Hemoglobin 30.6 pg (28.0-33.3); Mean Corpuscular Volume 97.4 fL (83.0-100.0); Mean Platelet Volume 9.3 fL (9.4-12.4); Monocytes # 0.5 K/mcL (0.0-1.3); Monocytes % 3.9 %; Platelet Count 205 K/mcL (140-400); Red Blood Count 4.25 M/mcL (4.19-5.50); Red Cell Distribution Width 14.1 % (11.5-14.5); Segmented Neutrophils % 91.2 %; White Blood Count 13.2 K/mcL (4.3-11.1)
[2021-08-03 03:43] LABS: INR 1.2; Prothrombin Time 12.9 Seconds (9.4-12.1)
[2021-08-03] MEDS: Ipratropium/Albuterol Neb 3 ML IH SCH ×6 (04:05→23:54)
[2021-08-03] MEDS: *HR* Enoxaparin 150 MG/ML SYRINGE SQ SCH ×2 (04:44→17:35)
[2021-08-03] MEDS: Pantoprazole 40 MG VIAL IVP SCH ×2 (04:45→17:32)
[2021-08-03] MEDS: Ampicillin/Sulbactam 3,000 MG in 0.9 % Sodium Chloride Mini Bag 100 ML IVPB SCH ×3 (04:45→17:38)
[2021-08-03] MEDS: MethylPREDNISolone 40 MG/ML VIAL IVP SCH ×3 (04:46→21:53)
[2021-08-03] MEDS: Acetaminophen 325 MG TABLET PO PRN (07:18)
[2021-08-03] MEDS: Budesonide/Formoterol 160/4.5 1 PUFF INH IH SCH (07:25)
[2021-08-03] MEDS: Gabapentin 300 MG CAPSULE PO SCH ×3 (09:07→20:57)
[2021-08-03] MEDS: ALPRAZolam 1 MG TABLET PO SCH (09:07)
[2021-08-03] MEDS: Insulin LISPRO 300 UNITS/3 ML VIAL SUBQ SCH ×4 (09:08→20:57)
[2021-08-03] MEDS: Fluconazole 100 MG TABLET PO SCH (09:08)
[2021-08-03] MEDS ORDERED: Albuterol 2.5 MG/3 ML NEBULIZER IH ONE (12:44)
[2021-08-03] MEDS ORDERED: Ondansetron 4 MG/2 ML VIAL IVP PRN (12:44)
[2021-08-03] MEDS ORDERED: Albuterol 2.5 MG/3 ML NEBULIZER IH PRN (12:44)
[2021-08-03] MEDS ORDERED: Albuterol 2.5 MG/3 ML NEBULIZER ONE (12:46)
[2021-08-03] MEDS ORDERED: Lidocaine -MPF 2% 2 ML VIAL ONE (12:47)
[2021-08-03] MEDS ORDERED: Ondansetron 4 MG/2 ML VIAL ONE (12:47)
[2021-08-03] MEDS ORDERED: *HR* Succinylcholine 200 MG/10 ML VIAL IVP ONE (12:47)
[2021-08-03] MEDS ORDERED: *HR* Rocuronium Bromide 50 MG/5 ML VIAL ONE (12:48)
[2021-08-03] MEDS ORDERED: Lidocaine -MPF 4% 5 ML AMPUL ONE (12:51)
[2021-08-03] MEDS ORDERED: *HR* Warfarin 2.5 MG TABLET PO ONE (18:00)
[2021-08-03] MEDS: Mirtazapine 15 MG TABLET PO SCH (20:57)
[2021-08-04] MEDS: Ampicillin/Sulbactam 3,000 MG in 0.9 % Sodium Chloride Mini Bag 100 ML IVPB SCH ×4 (00:34→17:39)
[2021-08-04 01:56] LABS: Basophils % 0.1 %; Hematocrit 39.8 % (37.5-50.1); Hemoglobin 12.9 g/dL (12.9-16.9); Immature Granulocytes % 1.5 % (0-4); Lymphocytes # 0.4 K/mcL (0.6-4.6); Lymphocytes % 4.5 %; Mean Corpuscular HGB Conc 32.4 g/dL (31.6-35.5); Mean Corpuscular Hemoglobin 31.1 pg (28.0-33.3); Mean Corpuscular Volume 95.9 fL (83.0-100.0); Mean Platelet Volume 9.4 fL (9.4-12.4); Monocytes # 0.4 K/mcL (0.0-1.3); Platelet Count 217 K/mcL (140-400); Red Blood Count 4.15 M/mcL (4.19-5.50); Red Cell Distribution Width 14.1 % (11.5-14.5); Segmented Neutrophils % 88.9 %; White Blood Count 7.9 K/mcL (4.3-11.1)
[2021-08-04 02:11] LABS: INR 1.8; Prothrombin Time 19.8 Seconds (9.4-12.1)
[2021-08-04 02:12] LABS: BUN/Creatinine Ratio 23 (6-26); Blood Urea Nitrogen 19 mg/dL (8-23); Calcium 8.8 mg/dL (8.6-10.3); Carbon Dioxide 32 mEq/L (23-29); Chloride 99 mEq/L (98-107); Glucose 254 mg/dL (70-105); Osmolality,Calculated 295 (280-300); Potassium 4.5 mEq/L (3.5-5.1); Sodium 137 mEq/L (136-145); eGFR For African Americans > 60 (> 60); eGFR For Non-African Americans > 60 (> 60)
[2021-08-04] MEDS: Ipratropium/Albuterol Neb 3 ML IH SCH ×6 (03:55→23:09)
[2021-08-04] MEDS: *HR* OxyCODONE/APAP 5/325 TABLET PO PRN ×2 (04:56→11:28)
[2021-08-04] MEDS: Pantoprazole 40 MG VIAL IVP SCH ×2 (04:56→17:39)
[2021-08-04] MEDS: GuaiFENesin Liq 200 MG/10 ML UDC PO PRN ×3 (04:56→21:05)
[2021-08-04] MEDS: MethylPREDNISolone 40 MG/ML VIAL IVP SCH ×3 (04:56→21:06)
[2021-08-04] MEDS: *HR* Enoxaparin 150 MG/ML SYRINGE SQ SCH ×2 (04:56→17:39)
[2021-08-04] MEDS: Insulin LISPRO 300 UNITS/3 ML VIAL SUBQ SCH ×4 (08:22→21:05)
[2021-08-04] MEDS: ALPRAZolam 1 MG TABLET PO SCH (08:23)
[2021-08-04] MEDS: Gabapentin 300 MG CAPSULE PO SCH ×3 (08:23→21:05)
[2021-08-04] MEDS: Fluconazole 100 MG TABLET PO SCH (08:23)
[2021-08-04] MEDS: Benzonatate 100 MG CAPSULE PO PRN ×2 (11:28→21:05)
[2021-08-04] MEDS ORDERED: *HR* OxyCODONE/APAP 5/325 TABLET PO ONE (11:54)
[2021-08-04] MEDS ORDERED: *HR* Warfarin 2.5 MG TABLET PO ONE (18:00)
[2021-08-04] MEDS: *HR* OxyCODONE/APAP 10/325 TABLET PO PRN (18:44)
[2021-08-04] MEDS: Mirtazapine 15 MG TABLET PO SCH (21:05)
[2021-08-05] MEDS: *HR* OxyCODONE/APAP 10/325 TABLET PO PRN ×4 (00:23→20:17)
[2021-08-05] MEDS: Ampicillin/Sulbactam 3,000 MG in 0.9 % Sodium Chloride Mini Bag 100 ML IVPB SCH ×4 (00:24→18:23)
[2021-08-05 02:02] LABS: Basophils % 0.1 %; Hematocrit 43.2 % (37.5-50.1); Hemoglobin 13.6 g/dL (12.9-16.9); Immature Granulocytes % 1.3 % (0-4); Lymphocytes # 0.4 K/mcL (0.6-4.6); Lymphocytes % 4.8 %; Mean Corpuscular HGB Conc 31.5 g/dL (31.6-35.5); Mean Corpuscular Hemoglobin 30.4 pg (28.0-33.3); Mean Corpuscular Volume 96.6 fL (83.0-100.0); Mean Platelet Volume 9.4 fL (9.4-12.4); Monocytes # 0.5 K/mcL (0.0-1.3); Neutrophils # 8.1 K/mcL (1.6-8.9); Platelet Count 235 K/mcL (140-400); Red Blood Count 4.47 M/mcL (4.19-5.50); Red Cell Distribution Width 14.2 % (11.5-14.5); Segmented Neutrophils % 88.8 %; White Blood Count 9.2 K/mcL (4.3-11.1)
[2021-08-05 02:07] LABS: BUN/Creatinine Ratio 17 (6-26); Blood Urea Nitrogen 16 mg/dL (8-23); Calcium 8.9 mg/dL (8.6-10.3); Carbon Dioxide 34 mEq/L (23-29); Chloride 99 mEq/L (98-107); Glucose 162 mg/dL (70-105); Magnesium 2.5 mg/dL (1.6-2.6); Osmolality,Calculated 295 (280-300); Potassium 4.8 mEq/L (3.5-5.1); Sodium 140 mEq/L (136-145); eGFR For African Americans > 60 (> 60); eGFR For Non-African Americans > 60 (> 60)
[2021-08-05 02:08] LABS: INR 1.2; Prothrombin Time 13.3 Seconds (9.4-12.1)
[2021-08-05] MEDS: Ipratropium/Albuterol Neb 3 ML IH SCH ×6 (03:32→23:24)
[2021-08-05] MEDS: MethylPREDNISolone 40 MG/ML VIAL IVP SCH ×3 (06:34→21:47)
[2021-08-05] MEDS: Pantoprazole 40 MG VIAL IVP SCH ×2 (06:34→18:22)
[2021-08-05] MEDS: Benzonatate 100 MG CAPSULE PO PRN ×3 (06:40→20:17)
[2021-08-05] MEDS: GuaiFENesin Liq 200 MG/10 ML UDC PO PRN ×3 (06:40→20:18)
[2021-08-05] MEDS: Insulin LISPRO 300 UNITS/3 ML VIAL SUBQ SCH ×4 (07:53→20:18)
[2021-08-05] MEDS: Gabapentin 300 MG CAPSULE PO SCH ×4 (07:54→20:17)
[2021-08-05] MEDS: ALPRAZolam 1 MG TABLET PO SCH ×2 (07:54→09:31)
[2021-08-05] MEDS: Fluconazole 100 MG TABLET PO SCH ×2 (07:54→09:32)
[2021-08-05] MEDS: *HR* Enoxaparin 150 MG/ML SYRINGE SQ SCH (18:22)
[2021-08-05] MEDS: Mirtazapine 15 MG TABLET PO SCH (20:17)
[2021-08-06] MEDS: Ampicillin/Sulbactam 3,000 MG in 0.9 % Sodium Chloride Mini Bag 100 ML IVPB SCH ×4 (00:56→17:36)
[2021-08-06 03:04] LABS: Basophils % 0.1 %; Hematocrit 41.4 % (37.5-50.1); Hemoglobin 13.3 g/dL (12.9-16.9); Immature Granulocytes % 1.2 % (0-4); Lymphocytes # 0.4 K/mcL (0.6-4.6); Lymphocytes % 6.3 %; Mean Corpuscular HGB Conc 32.1 g/dL (31.6-35.5); Mean Corpuscular Hemoglobin 31.1 pg (28.0-33.3); Mean Corpuscular Volume 96.7 fL (83.0-100.0); Monocytes # 0.3 K/mcL (0.0-1.3); Monocytes % 4.5 %; Neutrophils # 5.9 K/mcL (1.6-8.9); Platelet Count 211 K/mcL (140-400); Red Blood Count 4.28 M/mcL (4.19-5.50); Red Cell Distribution Width 13.9 % (11.5-14.5); Segmented Neutrophils % 87.9 %; White Blood Count 6.7 K/mcL (4.3-11.1)
[2021-08-06 03:06] LABS: Prothrombin Time 11.2 Seconds (9.4-12.1)
[2021-08-06] MEDS: Ipratropium/Albuterol Neb 3 ML IH SCH ×6 (03:24→23:30)
[2021-08-06 03:28] LABS: BUN/Creatinine Ratio 19 (6-26); Blood Urea Nitrogen 17 mg/dL (8-23); Calcium 8.6 mg/dL (8.6-10.3); Carbon Dioxide 31 mEq/L (23-29); Chloride 100 mEq/L (98-107); Glucose 187 mg/dL (70-105); Osmolality,Calculated 290 (280-300); Potassium 4.6 mEq/L (3.5-5.1); Sodium 137 mEq/L (136-145); eGFR For African Americans > 60 (> 60); eGFR For Non-African Americans > 60 (> 60)
[2021-08-06] MEDS: *HR* OxyCODONE/APAP 10/325 TABLET PO PRN ×3 (04:59→18:38)
[2021-08-06] MEDS: *HR* Enoxaparin 150 MG/ML SYRINGE SQ SCH ×2 (05:00→17:37)
[2021-08-06] MEDS: GuaiFENesin Liq 200 MG/10 ML UDC PO PRN ×3 (05:00→18:37)
[2021-08-06] MEDS: Benzonatate 100 MG CAPSULE PO PRN ×3 (05:00→18:38)
[2021-08-06] MEDS: MethylPREDNISolone 40 MG/ML VIAL IVP SCH ×3 (05:01→20:59)
[2021-08-06] MEDS: Pantoprazole 40 MG VIAL IVP SCH ×2 (05:08→17:38)
[2021-08-06] MEDS: ALPRAZolam 1 MG TABLET PO SCH (07:24)
[2021-08-06] MEDS: Fluconazole 100 MG TABLET PO SCH (07:24)
[2021-08-06] MEDS: Gabapentin 300 MG CAPSULE PO SCH ×3 (07:24→20:58)
[2021-08-06] MEDS: Insulin LISPRO 300 UNITS/3 ML VIAL SUBQ SCH ×4 (07:25→20:59)
[2021-08-06] MEDS: Acetylcysteine 10% 2 ML INHSOL IH SCH ×3 (11:25→19:38)
[2021-08-06] MEDS ORDERED: *HR* Warfarin 5 MG TABLET PO ONE (18:00)
[2021-08-06] MEDS: Mirtazapine 15 MG TABLET PO SCH (20:59)
[2021-08-07 01:34] LABS: Hematocrit 41.9 % (37.5-50.1); Hemoglobin 13.7 g/dL (12.9-16.9); Immature Granulocytes % 1.1 % (0-4); Lymphocytes # 0.3 K/mcL (0.6-4.6); Lymphocytes % 4.4 %; Mean Corpuscular HGB Conc 32.7 g/dL (31.6-35.5); Mean Corpuscular Hemoglobin 31.2 pg (28.0-33.3); Mean Corpuscular Volume 95.4 fL (83.0-100.0); Mean Platelet Volume 9.3 fL (9.4-12.4); Monocytes # 0.3 K/mcL (0.0-1.3); Monocytes % 5.2 %; Neutrophils # 5.6 K/mcL (1.6-8.9); Platelet Count 202 K/mcL (140-400); Red Blood Count 4.39 M/mcL (4.19-5.50); Red Cell Distribution Width 13.7 % (11.5-14.5); Segmented Neutrophils % 89.3 %; White Blood Count 6.3 K/mcL (4.3-11.1)
[2021-08-07 01:40] LABS: Prothrombin Time 11.4 Seconds (9.4-12.1)
[2021-08-07 01:55] LABS: BUN/Creatinine Ratio 16 (6-26); Blood Urea Nitrogen 14 mg/dL (8-23); Calcium 8.7 mg/dL (8.6-10.3); Carbon Dioxide 30 mEq/L (23-29); Chloride 99 mEq/L (98-107); Glucose 194 mg/dL (70-105); Osmolality,Calculated 288 (280-300); Potassium 4.4 mEq/L (3.5-5.1); Sodium 136 mEq/L (136-145); eGFR For African Americans > 60 (> 60); eGFR For Non-African Americans > 60 (> 60)
[2021-08-07] MEDS: GuaiFENesin Liq 200 MG/10 ML UDC PO PRN ×4 (03:21→21:37)
[2021-08-07] MEDS: *HR* OxyCODONE/APAP 10/325 TABLET PO PRN ×4 (03:21→21:43)
[2021-08-07] MEDS: Benzonatate 100 MG CAPSULE PO PRN ×3 (03:21→21:37)
[2021-08-07] MEDS: Ipratropium/Albuterol Neb 3 ML IH SCH ×6 (03:28→23:13)
[2021-08-07] MEDS: Acetylcysteine 10% 2 ML INHSOL IH SCH ×4 (03:28→19:49)
[2021-08-07] MEDS: MethylPREDNISolone 40 MG/ML VIAL IVP SCH ×2 (06:24→17:15)
[2021-08-07] MEDS: Pantoprazole 40 MG VIAL IVP SCH ×2 (06:24→17:15)
[2021-08-07] MEDS: *HR* Enoxaparin 150 MG/ML SYRINGE SQ SCH ×2 (06:29→17:15)
[2021-08-07] MEDS: Gabapentin 300 MG CAPSULE PO SCH ×3 (08:29→21:37)
[2021-08-07] MEDS: ALPRAZolam 1 MG TABLET PO SCH (08:29)
[2021-08-07] MEDS: Fluconazole 100 MG TABLET PO SCH (08:29)
[2021-08-07] MEDS: Insulin LISPRO 300 UNITS/3 ML VIAL SUBQ SCH ×4 (08:30→21:31)
[2021-08-07] MEDS: Mirtazapine 15 MG TABLET PO SCH (21:37)
[2021-08-08] MEDS: Ipratropium/Albuterol Neb 3 ML IH SCH ×6 (03:56→23:30)
[2021-08-08] MEDS: Acetylcysteine 10% 2 ML INHSOL IH SCH ×4 (03:57→19:28)
[2021-08-08] MEDS: GuaiFENesin Liq 200 MG/10 ML UDC PO PRN ×3 (04:27→17:32)
[2021-08-08] MEDS: *HR* OxyCODONE/APAP 10/325 TABLET PO PRN ×3 (04:27→17:32)
[2021-08-08] MEDS: MethylPREDNISolone 40 MG/ML VIAL IVP SCH ×2 (05:56→17:32)
[2021-08-08] MEDS: Pantoprazole 40 MG VIAL IVP SCH ×2 (05:57→17:32)
[2021-08-08] MEDS: *HR* Enoxaparin 150 MG/ML SYRINGE SQ SCH ×2 (05:57→17:31)
[2021-08-08 06:50] LABS: Basophils % 0.2 %; Hematocrit 41.6 % (37.5-50.1); Hemoglobin 13.5 g/dL (12.9-16.9); Lymphocytes # 0.4 K/mcL (0.6-4.6); Lymphocytes % 6.3 %; Mean Corpuscular HGB Conc 32.5 g/dL (31.6-35.5); Mean Corpuscular Hemoglobin 31.1 pg (28.0-33.3); Mean Corpuscular Volume 95.9 fL (83.0-100.0); Mean Platelet Volume 8.9 fL (9.4-12.4); Monocytes # 0.5 K/mcL (0.0-1.3); Platelet Count 178 K/mcL (140-400); Red Blood Count 4.34 M/mcL (4.19-5.50); Red Cell Distribution Width 13.8 % (11.5-14.5); Segmented Neutrophils % 83.5 %
[2021-08-08 07:06] LABS: BUN/Creatinine Ratio 12 (6-26); Blood Urea Nitrogen 11 mg/dL (8-23); Calcium 8.5 mg/dL (8.6-10.3); Carbon Dioxide 34 mEq/L (23-29); Chloride 100 mEq/L (98-107); Glucose 174 mg/dL (70-105); Osmolality,Calculated 288 (280-300); Potassium 4.6 mEq/L (3.5-5.1); Sodium 137 mEq/L (136-145); eGFR For African Americans > 60 (> 60); eGFR For Non-African Americans > 60 (> 60)
[2021-08-08] MEDS: Insulin LISPRO 300 UNITS/3 ML VIAL SUBQ SCH ×4 (07:36→21:00)
[2021-08-08] MEDS: Fluconazole 100 MG TABLET PO SCH (07:41)
[2021-08-08] MEDS: Benzonatate 100 MG CAPSULE PO PRN ×2 (07:41→15:55)
[2021-08-08] MEDS: ALPRAZolam 1 MG TABLET PO SCH (07:42)
[2021-08-08] MEDS: Gabapentin 300 MG CAPSULE PO SCH ×3 (07:42→21:04)
[2021-08-08] MEDS: Mirtazapine 15 MG TABLET PO SCH (21:04)
[2021-08-09] MEDS: Benzonatate 100 MG CAPSULE PO PRN ×2 (00:01→12:16)
[2021-08-09] MEDS: GuaiFENesin Liq 200 MG/10 ML UDC PO PRN ×3 (00:01→18:46)
[2021-08-09] MEDS: *HR* OxyCODONE/APAP 10/325 TABLET PO PRN ×4 (00:01→18:43)
[2021-08-09 03:23] LABS: Basophils % 0.2 %; Hematocrit 40.8 % (37.5-50.1); Hemoglobin 13.2 g/dL (12.9-16.9); Immature Granulocytes % 0.9 % (0-4); Lymphocytes # 0.3 K/mcL (0.6-4.6); Mean Corpuscular HGB Conc 32.4 g/dL (31.6-35.5); Mean Corpuscular Hemoglobin 30.6 pg (28.0-33.3); Mean Corpuscular Volume 94.4 fL (83.0-100.0); Mean Platelet Volume 9.4 fL (9.4-12.4); Monocytes # 0.4 K/mcL (0.0-1.3); Neutrophils # 5.7 K/mcL (1.6-8.9); Platelet Count 187 K/mcL (140-400); Red Blood Count 4.32 M/mcL (4.19-5.50); Red Cell Distribution Width 13.6 % (11.5-14.5); Segmented Neutrophils % 87.9 %; White Blood Count 6.5 K/mcL (4.3-11.1)
[2021-08-09] MEDS: Ipratropium/Albuterol Neb 3 ML IH SCH ×5 (03:24→20:20)
[2021-08-09] MEDS: Acetylcysteine 10% 2 ML INHSOL IH SCH ×4 (03:25→20:20)
[2021-08-09 03:26] LABS: Prothrombin Time 11.4 Seconds (9.4-12.1)
[2021-08-09 03:40] LABS: BUN/Creatinine Ratio 11 (6-26); Blood Urea Nitrogen 10 mg/dL (8-23); Calcium 8.4 mg/dL (8.6-10.3); Carbon Dioxide 31 mEq/L (23-29); Chloride 99 mEq/L (98-107); Glucose 228 mg/dL (70-105); Osmolality,Calculated 288 (280-300); Potassium 4.4 mEq/L (3.5-5.1); Sodium 136 mEq/L (136-145); eGFR For African Americans > 60 (> 60); eGFR For Non-African Americans > 60 (> 60)
[2021-08-09] MEDS: MethylPREDNISolone 40 MG/ML VIAL IVP SCH ×2 (06:00→17:32)
[2021-08-09] MEDS: Pantoprazole 40 MG VIAL IVP SCH ×2 (06:01→17:32)
[2021-08-09] MEDS: *HR* Enoxaparin 150 MG/ML SYRINGE SQ SCH ×2 (06:01→17:32)
[2021-08-09] MEDS: Fluconazole 100 MG TABLET PO SCH (08:31)
[2021-08-09] MEDS: Gabapentin 300 MG CAPSULE PO SCH ×3 (08:31→20:24)
[2021-08-09] MEDS: ALPRAZolam 1 MG TABLET PO SCH (08:31)
[2021-08-09] MEDS: Insulin LISPRO 300 UNITS/3 ML VIAL SUBQ SCH ×4 (08:32→21:42)
[2021-08-09] MEDS: *HR* LORazepam 2 MG/ML VIAL IVP PRN (17:38)
[2021-08-09] MEDS: Mirtazapine 15 MG TABLET PO SCH (20:24)
[2021-08-10] MEDS: Ipratropium/Albuterol Neb 3 ML IH SCH ×7 (00:20→22:54)
[2021-08-10] MEDS: *HR* OxyCODONE/APAP 10/325 TABLET PO PRN ×4 (00:59→18:47)
[2021-08-10] MEDS: GuaiFENesin Liq 200 MG/10 ML UDC PO PRN ×4 (02:06→21:58)
[2021-08-10] MEDS: Acetylcysteine 10% 2 ML INHSOL IH SCH ×4 (04:13→20:15)
[2021-08-10] MEDS: MethylPREDNISolone 40 MG/ML VIAL IVP SCH ×2 (06:18→16:46)
[2021-08-10] MEDS: *HR* Enoxaparin 150 MG/ML SYRINGE SQ SCH ×2 (06:19→16:46)
[2021-08-10] MEDS: Pantoprazole 40 MG VIAL IVP SCH (06:19)
[2021-08-10] MEDS: Benzonatate 100 MG CAPSULE PO PRN (06:32)
[2021-08-10] MEDS: Gabapentin 300 MG CAPSULE PO SCH ×3 (07:43→21:57)
[2021-08-10] MEDS: ALPRAZolam 1 MG TABLET PO SCH (07:44)
[2021-08-10] MEDS: Fluconazole 100 MG TABLET PO SCH (07:44)
[2021-08-10] MEDS: Insulin LISPRO 300 UNITS/3 ML VIAL SUBQ SCH ×4 (09:06→21:57)
[2021-08-10 09:10] LABS: Hematocrit 41.9 % (37.5-50.1); Hemoglobin 13.4 g/dL (12.9-16.9); Immature Granulocytes % 0.8 % (0-4); Lymphocytes # 0.4 K/mcL (0.6-4.6); Lymphocytes % 5.2 %; Mean Corpuscular Hemoglobin 30.6 pg (28.0-33.3); Mean Corpuscular Volume 95.7 fL (83.0-100.0); Mean Platelet Volume 9.4 fL (9.4-12.4); Monocytes # 0.7 K/mcL (0.0-1.3); Monocytes % 9.7 %; Neutrophils # 6.4 K/mcL (1.6-8.9); Platelet Count 160 K/mcL (140-400); Red Blood Count 4.38 M/mcL (4.19-5.50); Red Cell Distribution Width 13.6 % (11.5-14.5); Segmented Neutrophils % 84.3 %; White Blood Count 7.6 K/mcL (4.3-11.1)
[2021-08-10 09:28] LABS: BUN/Creatinine Ratio 9 (6-26); Blood Urea Nitrogen 8 mg/dL (8-23); Calcium 8.2 mg/dL (8.6-10.3); Carbon Dioxide 30 mEq/L (23-29); Chloride 97 mEq/L (98-107); Glucose 204 mg/dL (70-105); Osmolality,Calculated 280 (280-300); Potassium 4.7 mEq/L (3.5-5.1); Sodium 133 mEq/L (136-145); eGFR For African Americans > 60 (> 60); eGFR For Non-African Americans > 60 (> 60)
[2021-08-10] MEDS: Mirtazapine 15 MG TABLET PO SCH (21:57)
[2021-08-10] MEDS: *HR* LORazepam 2 MG/ML VIAL IVP PRN (21:58)
[2021-08-11] MEDS: Ipratropium/Albuterol Neb 3 ML IH SCH ×6 (03:50→23:04)
[2021-08-11] MEDS: Acetylcysteine 10% 2 ML INHSOL IH SCH ×4 (03:50→19:45)
[2021-08-11] MEDS: GuaiFENesin Liq 200 MG/10 ML UDC PO PRN ×4 (04:07→23:19)
[2021-08-11] MEDS: *HR* OxyCODONE/APAP 10/325 TABLET PO PRN ×4 (04:07→23:35)
[2021-08-11] MEDS: *HR* LORazepam 2 MG/ML VIAL IVP PRN ×2 (04:19→23:19)
[2021-08-11 04:52] LABS: Eosinophils % 0.1 %; Hematocrit 41.4 % (37.5-50.1); Hemoglobin 13.6 g/dL (12.9-16.9); Immature Granulocytes % 0.7 % (0-4); Lymphocytes # 0.9 K/mcL (0.6-4.6); Lymphocytes % 10.9 %; Mean Corpuscular HGB Conc 32.9 g/dL (31.6-35.5); Mean Corpuscular Hemoglobin 31.2 pg (28.0-33.3); Monocytes # 1.1 K/mcL (0.0-1.3); Monocytes % 12.6 %; Neutrophils # 6.5 K/mcL (1.6-8.9); Platelet Count 172 K/mcL (140-400); Red Blood Count 4.36 M/mcL (4.19-5.50); Red Cell Distribution Width 13.7 % (11.5-14.5); Segmented Neutrophils % 75.7 %; White Blood Count 8.5 K/mcL (4.3-11.1)
[2021-08-11 05:10] LABS: BUN/Creatinine Ratio 7 (6-26); Blood Urea Nitrogen 7 mg/dL (8-23); Calcium 8.6 mg/dL (8.6-10.3); Carbon Dioxide 33 mEq/L (23-29); Chloride 99 mEq/L (98-107); Glucose 136 mg/dL (70-105); Osmolality,Calculated 286 (280-300); Sodium 138 mEq/L (136-145); eGFR For African Americans > 60 (> 60); eGFR For Non-African Americans > 60 (> 60)
[2021-08-11] MEDS: *HR* Enoxaparin 150 MG/ML SYRINGE SQ SCH ×2 (06:27→17:04)
[2021-08-11] MEDS: MethylPREDNISolone 40 MG/ML VIAL IVP SCH (06:28)
[2021-08-11] MEDS: Insulin LISPRO 300 UNITS/3 ML VIAL SUBQ SCH ×4 (09:17→23:03)
[2021-08-11] MEDS: Fluconazole 100 MG TABLET PO SCH (09:18)
[2021-08-11] MEDS: Gabapentin 300 MG CAPSULE PO SCH ×3 (09:18→20:17)
[2021-08-11] MEDS: ALPRAZolam 1 MG TABLET PO SCH (09:18)
[2021-08-11] MEDS: Mirtazapine 15 MG TABLET PO SCH (20:17)
[2021-08-12] MEDS: Ipratropium/Albuterol Neb 3 ML IH SCH ×6 (03:46→23:55)
[2021-08-12] MEDS: Acetylcysteine 10% 2 ML INHSOL IH SCH ×4 (03:46→20:11)
[2021-08-12] MEDS: *HR* OxyCODONE/APAP 10/325 TABLET PO PRN ×3 (05:46→21:00)
[2021-08-12] MEDS: GuaiFENesin Liq 200 MG/10 ML UDC PO PRN ×2 (05:46→21:00)
[2021-08-12] MEDS: *HR* Enoxaparin 150 MG/ML SYRINGE SQ SCH ×2 (05:47→16:34)
[2021-08-12 06:51] LABS: Basophils % 0.1 %; Eosinophils % 0.3 %; Hematocrit 42.3 % (37.5-50.1); Hemoglobin 13.7 g/dL (12.9-16.9); Immature Granulocytes % 0.9 % (0-4); Lymphocytes # 1.6 K/mcL (0.6-4.6); Lymphocytes % 15.8 %; Mean Corpuscular HGB Conc 32.4 g/dL (31.6-35.5); Mean Corpuscular Hemoglobin 30.9 pg (28.0-33.3); Mean Corpuscular Volume 95.3 fL (83.0-100.0); Mean Platelet Volume 9.6 fL (9.4-12.4); Monocytes # 1.2 K/mcL (0.0-1.3); Monocytes % 11.6 %; Neutrophils # 7.4 K/mcL (1.6-8.9); Platelet Count 204 K/mcL (140-400); Red Blood Count 4.44 M/mcL (4.19-5.50); Red Cell Distribution Width 13.8 % (11.5-14.5); Segmented Neutrophils % 71.3 %; White Blood Count 10.3 K/mcL (4.3-11.1)
[2021-08-12 07:08] LABS: BUN/Creatinine Ratio 8 (6-26); Blood Urea Nitrogen 8 mg/dL (8-23); Calcium 8.8 mg/dL (8.6-10.3); Carbon Dioxide 36 mEq/L (23-29); Chloride 99 mEq/L (98-107); Glucose 104 mg/dL (70-105); Osmolality,Calculated 285 (280-300); Potassium 4.3 mEq/L (3.5-5.1); Sodium 138 mEq/L (136-145); eGFR For African Americans > 60 (> 60); eGFR For Non-African Americans > 60 (> 60)
[2021-08-12] MEDS: Fluconazole 100 MG TABLET PO SCH ×2 (09:15→14:30)
[2021-08-12] MEDS: Insulin LISPRO 300 UNITS/3 ML VIAL SUBQ SCH ×4 (09:15→21:05)
[2021-08-12] MEDS: predniSONE 20 MG TABLET PO SCH ×2 (09:16→15:02)
[2021-08-12] MEDS: Gabapentin 300 MG CAPSULE PO SCH ×3 (09:16→19:49)
[2021-08-12] MEDS: ALPRAZolam 1 MG TABLET PO SCH ×2 (09:32→09:37)
[2021-08-12] MEDS ORDERED: Ondansetron 4 MG/2 ML VIAL IVP PRN (11:21)
[2021-08-12] MEDS ORDERED: Albuterol 2.5 MG/3 ML NEBULIZER IH PRN (11:21)
[2021-08-12] MEDS ORDERED: Lidocaine -MPF 2% 2 ML VIAL ONE (11:44)
[2021-08-12] MEDS ORDERED: *HR* Propofol 200 MG/20 ML VIAL IVP ONE (11:44)
[2021-08-12] MEDS ORDERED: *HR* Succinylcholine 200 MG/10 ML VIAL IVP ONE (11:44)
[2021-08-12] MEDS ORDERED: Ondansetron 4 MG/2 ML VIAL ONE (12:10)
[2021-08-12] MEDS ORDERED: *HR* Labetalol 20 MG/4 ML SYRINGE IVP ONE (12:26)
[2021-08-12] MEDS: Benzonatate 100 MG CAPSULE PO PRN (14:29)
[2021-08-12] MEDS: Mirtazapine 15 MG TABLET PO SCH (19:49)
[2021-08-12] MEDS: Acetaminophen 325 MG TABLET PO PRN (19:49)
[2021-08-12] MEDS ORDERED: *HR* LORazepam 2 MG/ML VIAL IVP ONE (19:52)
[2021-08-13] MEDS: GuaiFENesin Liq 200 MG/10 ML UDC PO PRN ×3 (01:38→20:59)
[2021-08-13] MEDS: *HR* OxyCODONE/APAP 10/325 TABLET PO PRN ×4 (01:39→22:27)
[2021-08-13] MEDS: Ipratropium/Albuterol Neb 3 ML IH SCH ×6 (03:58→23:59)
[2021-08-13] MEDS: Acetylcysteine 10% 2 ML INHSOL IH SCH ×3 (03:58→15:39)
[2021-08-13 04:06] LABS: Basophils % 0.1 %; Hematocrit 38.4 % (37.5-50.1); Hemoglobin 12.8 g/dL (12.9-16.9); Immature Granulocytes % 0.6 % (0-4); Lymphocytes # 0.4 K/mcL (0.6-4.6); Lymphocytes % 4.7 %; Mean Corpuscular HGB Conc 33.3 g/dL (31.6-35.5); Mean Corpuscular Hemoglobin 31.8 pg (28.0-33.3); Mean Corpuscular Volume 95.3 fL (83.0-100.0); Mean Platelet Volume 9.8 fL (9.4-12.4); Monocytes # 0.4 K/mcL (0.0-1.3); Neutrophils # 7.2 K/mcL (1.6-8.9); Platelet Count 166 K/mcL (140-400); Red Blood Count 4.03 M/mcL (4.19-5.50); Red Cell Distribution Width 13.8 % (11.5-14.5); Segmented Neutrophils % 89.6 %; White Blood Count 8.1 K/mcL (4.3-11.1)
[2021-08-13 04:28] LABS: BUN/Creatinine Ratio 11 (6-26); Blood Urea Nitrogen 9 mg/dL (8-23); Calcium 8.3 mg/dL (8.6-10.3); Carbon Dioxide 32 mEq/L (23-29); Chloride 100 mEq/L (98-107); Glucose 191 mg/dL (70-105); Osmolality,Calculated 288 (280-300); Potassium 4.4 mEq/L (3.5-5.1); Sodium 137 mEq/L (136-145); eGFR For African Americans > 60 (> 60); eGFR For Non-African Americans > 60 (> 60)
[2021-08-13] MEDS: *HR* Enoxaparin 150 MG/ML SYRINGE SQ SCH (05:09)
[2021-08-13 05:16] LABS: Adenovirus Not Detected (Not Detect); Bordetella Pertussis Not Detected (Not Detect); Chlamydophila pneumoniae Not Detected (Not Detect); Coronavirus 229E Not Detected (Not Detect); Coronavirus HKU1 Not Detected (Not Detect); Coronavirus NL63 Not Detected (Not Detect); Coronavirus OC43 Not Detected (Not Detect); Human Metapneumovirus Not Detected (Not Detect); Human Rhinovirus/Enterovirus Not Detected (Not Detect); Influenza A Subtype 2009 H1 Not Detected (Not Detect); Influenza B Not Detected (Not Detect); Mycoplasma pneumoniae Not Detected (Not Detect); Parainfluenza Virus 1 Not Detected (Not Detect); Parainfluenza Virus 2 Not Detected (Not Detect); Parainfluenza Virus 3 Not Detected (Not Detect); Parainfluenza Virus 4 Not Detected (Not Detect); Respiratory Syncytial Virus Not Detected (Not Detect); SARS-CoV-2 Not Detected (Not Detect)
[2021-08-13] MEDS: Insulin LISPRO 300 UNITS/3 ML VIAL SUBQ SCH ×4 (08:25→21:31)
[2021-08-13] MEDS: ALPRAZolam 1 MG TABLET PO SCH (09:52)
[2021-08-13] MEDS: Fluconazole 100 MG TABLET PO SCH (09:52)
[2021-08-13] MEDS: predniSONE 20 MG TABLET PO SCH (09:53)
[2021-08-13] MEDS: Gabapentin 300 MG CAPSULE PO SCH ×3 (09:53→20:59)
[2021-08-13] MEDS: *HR* Enoxaparin 120 MG/0.8 ML SYRINGE SQ SCH (17:36)
[2021-08-13] MEDS: Benzonatate 100 MG CAPSULE PO PRN (20:59)
[2021-08-13] MEDS: Mirtazapine 15 MG TABLET PO SCH (20:59)
[2021-08-13] MEDS ORDERED: ALPRAZolam 1 MG TABLET PO STA (21:13)
[2021-08-14] MEDS: Ipratropium/Albuterol Neb 3 ML IH SCH ×5 (03:49→20:50)
[2021-08-14] MEDS: Acetylcysteine 10% 2 ML INHSOL IH SCH ×5 (03:50→20:50)
[2021-08-14] MEDS: *HR* OxyCODONE/APAP 10/325 TABLET PO PRN ×2 (05:57→14:46)
[2021-08-14] MEDS: *HR* Enoxaparin 120 MG/0.8 ML SYRINGE SQ SCH (05:58)
[2021-08-14] MEDS: GuaiFENesin Liq 200 MG/10 ML UDC PO PRN (05:59)
[2021-08-14] MEDS: Insulin LISPRO 300 UNITS/3 ML VIAL SUBQ SCH ×4 (08:21→20:12)
[2021-08-14] MEDS: Fluconazole 100 MG TABLET PO SCH (08:22)
[2021-08-14] MEDS: predniSONE 20 MG TABLET PO SCH (08:22)
[2021-08-14] MEDS: Gabapentin 300 MG CAPSULE PO SCH ×3 (08:22→20:12)
[2021-08-14 08:27] LABS: Basophils % 0.1 %; Eosinophils % 0.3 %; Hematocrit 36.8 % (37.5-50.1); Hemoglobin 11.8 g/dL (12.9-16.9); Lymphocytes # 1.8 K/mcL (0.6-4.6); Lymphocytes % 12.7 %; Mean Corpuscular HGB Conc 32.1 g/dL (31.6-35.5); Mean Corpuscular Volume 96.6 fL (83.0-100.0); Mean Platelet Volume 10.3 fL (9.4-12.4); Monocytes # 1.4 K/mcL (0.0-1.3); Monocytes % 9.7 %; Neutrophils # 10.9 K/mcL (1.6-8.9); Platelet Count 205 K/mcL (140-400); Red Blood Count 3.81 M/mcL (4.19-5.50); Red Cell Distribution Width 14.1 % (11.5-14.5); Segmented Neutrophils % 76.2 %
[2021-08-14 08:29] LABS: White Blood Count 14.3 K/mcL (4.3-11.1)
[2021-08-14 08:43] LABS: BUN/Creatinine Ratio 7 (6-26); Blood Urea Nitrogen 7 mg/dL (8-23); Calcium 8.7 mg/dL (8.6-10.3); Carbon Dioxide 34 mEq/L (23-29); Chloride 97 mEq/L (98-107); Glucose 160 mg/dL (70-105); Osmolality,Calculated 283 (280-300); Potassium 4.6 mEq/L (3.5-5.1); Sodium 136 mEq/L (136-145); eGFR For African Americans > 60 (> 60); eGFR For Non-African Americans > 60 (> 60)
[2021-08-14] MEDS ORDERED: 0.9 % Sodium Chloride 1,000 ML IVC ONE ×3 (17:15→22:07)
[2021-08-14] MEDS ORDERED: Protamine Sulfate 50 MG/5 ML VIAL IVP ONE (17:22)
[2021-08-14] MEDS: Piperacillin/Tazobactam 3.375 GM in 0.9 % Sodium Chloride Mini Bag 100 ML IVPB SCH ×2 (17:26→23:46)
[2021-08-14 17:52] LABS: Basophils % 0.1 %; Hematocrit 30.4 % (37.5-50.1); Immature Granulocytes % 1.4 % (0-4); Lymphocytes # 1.1 K/mcL (0.6-4.6); Lymphocytes % 6.5 %; Mean Corpuscular HGB Conc 32.2 g/dL (31.6-35.5); Mean Corpuscular Hemoglobin 30.6 pg (28.0-33.3); Monocytes # 1.4 K/mcL (0.0-1.3); Neutrophils # 14.3 K/mcL (1.6-8.9); Platelet Count 219 K/mcL (140-400); Red Cell Distribution Width 13.8 % (11.5-14.5)
[2021-08-14 18:00] LABS: Hemoglobin 9.8 g/dL (12.9-16.9)
[2021-08-14 18:04] LABS: INR 1.1; Prothrombin Time 11.7 Seconds (9.4-12.1)
[2021-08-14 18:06] LABS: Activated Partial Thrombo Time 28.4 Seconds (26.0-36.0)
[2021-08-14 18:11] LABS: Blood Urea Nitrogen 11 mg/dL (8-23); Calcium 8.2 mg/dL (8.6-10.3); Carbon Dioxide 29 mEq/L (23-29); Chloride 98 mEq/L (98-107); Glucose 173 mg/dL (70-105); Osmolality,Calculated 284 (280-300); Potassium 4.8 mEq/L (3.5-5.1); Sodium 135 mEq/L (136-145)
[2021-08-14] MEDS ORDERED: 0.9 % Sodium Chloride 1,000 ML IVC SCH (18:45)
[2021-08-14 19:18] LABS: BUN/Creatinine Ratio 9 (6-26); eGFR For African Americans > 60 (> 60); eGFR For Non-African Americans > 60 (> 60)
[2021-08-14] MEDS ORDERED: Acetaminophen IV 1,000 MG/100 ML BAG IVPB ONE (19:50)
[2021-08-14] MEDS: Mirtazapine 15 MG TABLET PO SCH (20:12)
[2021-08-14] MEDS: ALPRAZolam 1 MG TABLET PO SCH (20:18)
[2021-08-14 20:31] LABS: Basophils % 0.1 %; Hematocrit 25.9 % (37.5-50.1); Hemoglobin 8.8 g/dL (12.9-16.9); Lymphocytes # 1.4 K/mcL (0.6-4.6); Lymphocytes % 7.5 %; Mean Corpuscular Hemoglobin 32.5 pg (28.0-33.3); Mean Corpuscular Volume 95.6 fL (83.0-100.0); Monocytes # 1.9 K/mcL (0.0-1.3); Monocytes % 10.1 %; Neutrophils # 15.3 K/mcL (1.6-8.9); Platelet Count 187 K/mcL (140-400); Red Blood Count 2.71 M/mcL (4.19-5.50); Red Cell Distribution Width 13.8 % (11.5-14.5); Segmented Neutrophils % 79.3 %; White Blood Count 19.3 K/mcL (4.3-11.1)
[2021-08-14] MEDS ORDERED: 0.9 % Sodium Chloride 250 ML ONE (20:43)
[2021-08-14] MEDS: Ondansetron 4 MG/2 ML VIAL IVP PRN (21:29)
[2021-08-15] MEDS: Ipratropium/Albuterol Neb 3 ML IH SCH ×6 (00:18→20:48)
[2021-08-15] MEDS ORDERED: Acetaminophen IV 1,000 MG/100 ML BAG IVPB ONE ×2 (02:22→11:00)
[2021-08-15] MEDS ORDERED: 0.9 % Sodium Chloride 1,000 ML IVC ONE ×2 (02:23→11:00)
[2021-08-15] MEDS ORDERED: Isovue-370 500 ML BOTTLE IVP ONE (02:26)
[2021-08-15] MEDS ORDERED: Norepinephrine 4 MG/254 ML IV.SOLN IVC SCH (02:30)
[2021-08-15] MEDS ORDERED: 0.9 % Sodium Chloride 500 ML ONE (02:38)
[2021-08-15] MEDS ORDERED: 0.9 % Sodium Chloride 250 ML IVC SCH (02:45)
[2021-08-15 02:47] LABS: Basophils % 0.1 %; Hematocrit 26.2 % (37.5-50.1); Hemoglobin 8.8 g/dL (12.9-16.9); Immature Granulocytes % 2.2 % (0-4); Lymphocytes # 2.6 K/mcL (0.6-4.6); Lymphocytes % 13.9 %; Mean Corpuscular HGB Conc 33.6 g/dL (31.6-35.5); Mean Corpuscular Hemoglobin 31.4 pg (28.0-33.3); Mean Corpuscular Volume 93.6 fL (83.0-100.0); Mean Platelet Volume 10.3 fL (9.4-12.4); Monocytes # 1.7 K/mcL (0.0-1.3); Monocytes % 9.3 %; Neutrophils # 13.7 K/mcL (1.6-8.9); Platelet Count 173 K/mcL (140-400); Red Cell Distribution Width 15.3 % (11.5-14.5); Segmented Neutrophils % 74.5 %; White Blood Count 18.4 K/mcL (4.3-11.1)
[2021-08-15 03:04] LABS: BUN/Creatinine Ratio 12 (6-26); Blood Urea Nitrogen 16 mg/dL (8-23); Calcium 7.4 mg/dL (8.6-10.3); Carbon Dioxide 28 mEq/L (23-29); Chloride 103 mEq/L (98-107); Glucose 179 mg/dL (70-105); Osmolality,Calculated 290 (280-300); Potassium 5.3 mEq/L (3.5-5.1); Sodium 137 mEq/L (136-145); eGFR For African Americans > 60 (> 60); eGFR For Non-African Americans 54 (> 60)
[2021-08-15] MEDS: Phenylephrine 20 MG in 0.9 % Sodium Chloride 250 ML IVC SCH (03:10)
[2021-08-15] MEDS ORDERED: 0.9 % Sodium Chloride 250 ML ONE (04:21)
[2021-08-15] MEDS: Acetylcysteine 10% 2 ML INHSOL IH SCH ×5 (04:21→20:49)
[2021-08-15] MEDS: Protamine Sulfate 50 MG/5 ML VIAL IVP ONE ×2 (04:48→05:07)
[2021-08-15] MEDS: Insulin LISPRO 300 UNITS/3 ML VIAL SUBQ SCH ×4 (07:30→21:01)
[2021-08-15] MEDS: Ondansetron 4 MG/2 ML VIAL IVP PRN ×2 (07:50→21:28)
[2021-08-15] MEDS: Piperacillin/Tazobactam 3.375 GM in 0.9 % Sodium Chloride Mini Bag 100 ML IVPB SCH ×3 (07:53→23:51)
[2021-08-15] MEDS: Gabapentin 300 MG CAPSULE PO SCH ×3 (08:00→21:14)
[2021-08-15] MEDS: predniSONE 20 MG TABLET PO SCH (08:00)
[2021-08-15] MEDS: Fluconazole 100 MG TABLET PO SCH (08:00)
[2021-08-15] MEDS: *HR* OxyCODONE/APAP 10/325 TABLET PO PRN ×4 (08:01→21:15)
[2021-08-15] MEDS: ALPRAZolam 1 MG TABLET PO SCH (08:01)
[2021-08-15 09:46] LABS: Hematocrit 27.5 % (37.5-50.1); Hemoglobin 9.5 g/dL (12.9-16.9); Mean Corpuscular HGB Conc 34.5 g/dL (31.6-35.5); Mean Corpuscular Hemoglobin 30.9 pg (28.0-33.3); Mean Corpuscular Volume 89.6 fL (83.0-100.0); Platelet Count 166 K/mcL (140-400); Red Blood Count 3.07 M/mcL (4.19-5.50); Red Cell Distribution Width 15.6 % (11.5-14.5); White Blood Count 18.4 K/mcL (4.3-11.1)
[2021-08-15] MEDS: Acetaminophen 325 MG TABLET PO PRN (10:48)
[2021-08-15] MEDS ORDERED: Metoclopramide 10 MG/2 ML VIAL IVP ONE (10:53)
[2021-08-15] MEDS: *HR* HYDROmorphone (PF) 1 MG/ML SYRINGE IVP PRN ×2 (14:04→19:40)
[2021-08-15] MEDS: Saline Nasal Spray 44 ML BOTTLE NS PRN ×2 (14:05→16:59)
[2021-08-15] MEDS ORDERED: Albumin 25% 25gram/100mL 25 GM/100 ML IV.SOLN IVPB ONE (14:56)
[2021-08-15] MEDS: Chloraseptic Spray 177 ML BOTTLE MM PRN (16:59)
[2021-08-15] MEDS: Mirtazapine 15 MG TABLET PO SCH (21:14)
[2021-08-15] MEDS ORDERED: ALPRAZolam 0.5 MG TABLET PO ONE (22:03)
[2021-08-16] MEDS: Ipratropium/Albuterol Neb 3 ML IH SCH ×7 (00:16→23:14)
[2021-08-16] MEDS: *HR* OxyCODONE/APAP 10/325 TABLET PO PRN ×4 (02:59→23:59)
[2021-08-16 03:26] LABS: Basophils % 0.1 %; Hematocrit 20.8 % (37.5-50.1); Immature Granulocytes % 1.4 % (0-4); Lymphocytes # 1.1 K/mcL (0.6-4.6); Lymphocytes % 8.6 %; Mean Corpuscular HGB Conc 34.1 g/dL (31.6-35.5); Mean Corpuscular Hemoglobin 30.7 pg (28.0-33.3); Monocytes # 1.1 K/mcL (0.0-1.3); Monocytes % 8.8 %; Neutrophils # 10.5 K/mcL (1.6-8.9); Nucleated Red Blood Cells 0.2 /100 WBC (0); Platelet Count 119 K/mcL (140-400); Red Blood Count 2.31 M/mcL (4.19-5.50); Segmented Neutrophils % 81.1 %
[2021-08-16 03:39] LABS: Hemoglobin 7.1 g/dL (12.9-16.9)
[2021-08-16 03:42] LABS: BUN/Creatinine Ratio 15 (6-26); Blood Urea Nitrogen 14 mg/dL (8-23); Calcium 7.9 mg/dL (8.6-10.3); Carbon Dioxide 28 mEq/L (23-29); Chloride 105 mEq/L (98-107); Glucose 158 mg/dL (70-105); Osmolality,Calculated 288 (280-300); Potassium 4.3 mEq/L (3.5-5.1); Sodium 137 mEq/L (136-145); eGFR For African Americans > 60 (> 60); eGFR For Non-African Americans > 60 (> 60)
[2021-08-16] MEDS: Acetylcysteine 10% 2 ML INHSOL IH SCH ×4 (04:28→23:14)
[2021-08-16] MEDS: *HR* HYDROmorphone (PF) 1 MG/ML SYRINGE IVP PRN ×3 (07:06→20:01)
[2021-08-16] MEDS: Phenylephrine 20 MG in 0.9 % Sodium Chloride 250 ML IVC SCH (07:29)
[2021-08-16] MEDS: Fluconazole 100 MG TABLET PO SCH (08:19)
[2021-08-16] MEDS: ALPRAZolam 1 MG TABLET PO SCH (08:19)
[2021-08-16] MEDS: Gabapentin 300 MG CAPSULE PO SCH ×3 (08:20→20:01)
[2021-08-16] MEDS: predniSONE 20 MG TABLET PO SCH (08:20)
[2021-08-16] MEDS: Piperacillin/Tazobactam 3.375 GM in 0.9 % Sodium Chloride Mini Bag 100 ML IVPB SCH ×2 (08:20→15:25)
[2021-08-16] MEDS: Insulin LISPRO 300 UNITS/3 ML VIAL SUBQ SCH ×4 (08:23→20:12)
[2021-08-16] MEDS: Furosemide 40 MG/4 ML VIAL IVP ONE (09:59)
[2021-08-16 14:11] LABS: Hematocrit 24.9 % (37.5-50.1); Hemoglobin 8.3 g/dL (12.9-16.9)
[2021-08-16] MEDS: Mirtazapine 15 MG TABLET PO SCH (20:01)
[2021-08-16 20:20] LABS: Hematocrit 22.3 % (37.5-50.1); Hemoglobin 7.4 g/dL (12.9-16.9)
[2021-08-17] MEDS: Piperacillin/Tazobactam 3.375 GM in 0.9 % Sodium Chloride Mini Bag 100 ML IVPB SCH ×4 (00:03→23:35)
[2021-08-17] MEDS: *HR* HYDROmorphone (PF) 1 MG/ML SYRINGE IVP PRN ×5 (03:34→23:34)
[2021-08-17] MEDS: Ipratropium/Albuterol Neb 3 ML IH SCH ×6 (03:40→23:40)
[2021-08-17] MEDS: Acetylcysteine 10% 2 ML INHSOL IH SCH (03:40)
[2021-08-17] MEDS: Phenylephrine 20 MG in 0.9 % Sodium Chloride 250 ML IVC SCH (04:23)
[2021-08-17 05:13] LABS: ABG Base Excess 8 mEq/L (-2 to 3); ABG HCO3 34 mEq/L (21-27); ABG Oxygen Saturation 92 % (95-98); ABG PCO2 59 mmHg (35-45); ABG PH 7.38 pH Units (7.32-7.45); ABG PO2 69 mmHg (85-104); ABG TCO2 36 mEq/L (20-26)
[2021-08-17 05:14] LABS: Basophils % 0.1 %; Eosinophils % 0.1 %; Hematocrit 23.6 % (37.5-50.1); Hemoglobin 7.5 g/dL (12.9-16.9); Immature Granulocytes % 1.1 % (0-4); Lymphocytes # 1.6 K/mcL (0.6-4.6); Lymphocytes % 13.4 %; Mean Corpuscular HGB Conc 31.8 g/dL (31.6-35.5); Mean Corpuscular Hemoglobin 29.6 pg (28.0-33.3); Mean Corpuscular Volume 93.3 fL (83.0-100.0); Mean Platelet Volume 10.1 fL (9.4-12.4); Monocytes # 0.8 K/mcL (0.0-1.3); Monocytes % 6.8 %; Neutrophils # 9.6 K/mcL (1.6-8.9); Platelet Count 114 K/mcL (140-400); Red Blood Count 2.53 M/mcL (4.19-5.50); Red Cell Distribution Width 16.4 % (11.5-14.5); Segmented Neutrophils % 78.5 %; White Blood Count 12.2 K/mcL (4.3-11.1)
[2021-08-17 05:19] LABS: BUN/Creatinine Ratio 10 (6-26); Blood Urea Nitrogen 8 mg/dL (8-23); Calcium 8.4 mg/dL (8.6-10.3); Carbon Dioxide 33 mEq/L (23-29); Chloride 101 mEq/L (98-107); Glucose 135 mg/dL (70-105); Osmolality,Calculated 284 (280-300); Potassium 4.5 mEq/L (3.5-5.1); Sodium 137 mEq/L (136-145); eGFR For African Americans > 60 (> 60); eGFR For Non-African Americans > 60 (> 60)
[2021-08-17] MEDS: *HR* OxyCODONE/APAP 10/325 TABLET PO PRN ×4 (05:38→21:07)
[2021-08-17] MEDS ORDERED: Furosemide 40 MG/4 ML VIAL IVP ONE (06:39)
[2021-08-17] MEDS ORDERED: Isovue-370 500 ML BOTTLE IVP ONE (07:19)
[2021-08-17] MEDS: Budesonide/Formoterol 160/4.5 1 PUFF INH IH SCH ×2 (07:33→20:44)
[2021-08-17] MEDS: Fluconazole 100 MG TABLET PO SCH (08:51)
[2021-08-17] MEDS: Gabapentin 300 MG CAPSULE PO SCH ×3 (08:51→21:05)
[2021-08-17] MEDS: ALPRAZolam 1 MG TABLET PO SCH (08:51)
[2021-08-17] MEDS: predniSONE 20 MG TABLET PO SCH (08:51)
[2021-08-17] MEDS: Chlorhexidine Rinse 15 ML MOUTHWASH MM SCH ×2 (08:51→21:05)
[2021-08-17] MEDS: Furosemide 40 MG/4 ML VIAL IVP ONE (08:52)
[2021-08-17] MEDS: Insulin LISPRO 300 UNITS/3 ML VIAL SUBQ SCH ×4 (08:53→20:43)
[2021-08-17] MEDS ORDERED: Vancomycin 2,000 MG/520 ML IV.SOLN IVPB ONE (12:00)
[2021-08-17] MEDS: Mirtazapine 15 MG TABLET PO SCH (21:05)
[2021-08-17] MEDS: MethylPREDNISolone 40 MG/ML VIAL IVP SCH (23:35)
[2021-08-18] MEDS: *HR* OxyCODONE/APAP 10/325 TABLET PO PRN ×5 (01:53→22:13)
[2021-08-18] MEDS: Vancomycin 2,000 MG/520 ML IV.SOLN IVPB SCH ×2 (01:54→15:05)
[2021-08-18] MEDS: Ipratropium/Albuterol Neb 3 ML IH SCH ×6 (04:18→23:08)
[2021-08-18] MEDS: *HR* HYDROmorphone (PF) 1 MG/ML SYRINGE IVP PRN ×4 (04:37→20:06)
[2021-08-18] MEDS: Phenylephrine 20 MG in 0.9 % Sodium Chloride 250 ML IVC SCH (04:38)
[2021-08-18 05:43] LABS: Basophils % 0.1 %; Hematocrit 25.1 % (37.5-50.1); Immature Granulocytes % 1.1 % (0-4); Lymphocytes # 0.4 K/mcL (0.6-4.6); Lymphocytes % 3.9 %; Mean Corpuscular HGB Conc 31.9 g/dL (31.6-35.5); Mean Corpuscular Hemoglobin 30.4 pg (28.0-33.3); Mean Corpuscular Volume 95.4 fL (83.0-100.0); Mean Platelet Volume 10.1 fL (9.4-12.4); Monocytes # 0.4 K/mcL (0.0-1.3); Monocytes % 3.9 %; Neutrophils # 8.2 K/mcL (1.6-8.9); Nucleated Red Blood Cells 0.7 /100 WBC (0); Platelet Count 102 K/mcL (140-400); Red Blood Count 2.63 M/mcL (4.19-5.50); Red Cell Distribution Width 15.9 % (11.5-14.5)
[2021-08-18 05:54] LABS: BUN/Creatinine Ratio 11 (6-26); Blood Urea Nitrogen 7 mg/dL (8-23); Calcium 8.7 mg/dL (8.6-10.3); Carbon Dioxide 34 mEq/L (23-29); Chloride 98 mEq/L (98-107); Glucose 179 mg/dL (70-105); Osmolality,Calculated 284 (280-300); Potassium 4.4 mEq/L (3.5-5.1); Sodium 136 mEq/L (136-145); eGFR For African Americans > 60 (> 60); eGFR For Non-African Americans > 60 (> 60)
[2021-08-18] MEDS: MethylPREDNISolone 40 MG/ML VIAL IVP SCH ×3 (07:34→23:28)
[2021-08-18] MEDS: Chlorhexidine Rinse 15 ML MOUTHWASH MM SCH ×2 (07:34→20:05)
[2021-08-18] MEDS: Fluconazole 100 MG TABLET PO SCH (07:34)
[2021-08-18] MEDS: Piperacillin/Tazobactam 3.375 GM in 0.9 % Sodium Chloride Mini Bag 100 ML IVPB SCH ×2 (07:35→16:36)
[2021-08-18] MEDS: Gabapentin 300 MG CAPSULE PO SCH ×3 (07:35→20:05)
[2021-08-18] MEDS: ALPRAZolam 1 MG TABLET PO SCH (07:35)
[2021-08-18] MEDS: Budesonide/Formoterol 160/4.5 1 PUFF INH IH SCH ×2 (07:52→19:56)
[2021-08-18] MEDS: Insulin LISPRO 300 UNITS/3 ML VIAL SUBQ SCH ×4 (08:46→20:06)
[2021-08-18] MEDS: Mirtazapine 15 MG TABLET PO SCH (20:06)
[2021-08-18] MEDS ORDERED: Piperacillin/Tazobactam 3.375 GM VIAL ONE (23:20)
[2021-08-19] MEDS: Piperacillin/Tazobactam 3.375 GM in 0.9 % Sodium Chloride Mini Bag 100 ML IVPB SCH ×4 (01:00→23:55)
[2021-08-19] MEDS: *HR* HYDROmorphone (PF) 1 MG/ML SYRINGE IVP PRN ×5 (01:07→22:02)
[2021-08-19] MEDS: Vancomycin 2,000 MG/520 ML IV.SOLN IVPB SCH ×2 (02:35→16:05)
[2021-08-19] MEDS: Phenylephrine 20 MG in 0.9 % Sodium Chloride 250 ML IVC SCH (03:25)
[2021-08-19] MEDS: Ipratropium/Albuterol Neb 3 ML IH SCH ×6 (04:04→23:54)
[2021-08-19] MEDS: *HR* OxyCODONE/APAP 10/325 TABLET PO PRN ×4 (04:17→20:09)
[2021-08-19 05:17] LABS: Hematocrit 25.9 % (37.5-50.1); Mean Corpuscular HGB Conc 30.9 g/dL (31.6-35.5); Mean Corpuscular Hemoglobin 30.3 pg (28.0-33.3); Mean Corpuscular Volume 98.1 fL (83.0-100.0); Mean Platelet Volume 9.6 fL (9.4-12.4); Platelet Count 105 K/mcL (140-400); Red Blood Count 2.64 M/mcL (4.19-5.50); Red Cell Distribution Width 16.1 % (11.5-14.5); White Blood Count 7.7 K/mcL (4.3-11.1)
[2021-08-19 05:37] LABS: BUN/Creatinine Ratio 10 (6-26); Blood Urea Nitrogen 7 mg/dL (8-23); Calcium 8.9 mg/dL (8.6-10.3); Carbon Dioxide 35 mEq/L (23-29); Chloride 97 mEq/L (98-107); Glucose 223 mg/dL (70-105); Osmolality,Calculated 291 (280-300); Potassium 4.5 mEq/L (3.5-5.1); Sodium 138 mEq/L (136-145); eGFR For African Americans > 60 (> 60); eGFR For Non-African Americans > 60 (> 60)
[2021-08-19] MEDS: Budesonide/Formoterol 160/4.5 1 PUFF INH IH SCH ×2 (07:26→20:00)
[2021-08-19] MEDS: Insulin LISPRO 300 UNITS/3 ML VIAL SUBQ SCH ×4 (07:34→20:49)
[2021-08-19] MEDS: ALPRAZolam 1 MG TABLET PO SCH (07:35)
[2021-08-19] MEDS: Gabapentin 300 MG CAPSULE PO SCH ×3 (07:36→20:09)
[2021-08-19] MEDS: Fluconazole 100 MG TABLET PO SCH (07:36)
[2021-08-19] MEDS: MethylPREDNISolone 40 MG/ML VIAL IVP SCH ×3 (07:36→23:56)
[2021-08-19] MEDS: Chlorhexidine Rinse 15 ML MOUTHWASH MM SCH ×2 (07:38→20:08)
[2021-08-19] MEDS: Mirtazapine 15 MG TABLET PO SCH (20:08)
[2021-08-20] MEDS: *HR* OxyCODONE/APAP 10/325 TABLET PO PRN ×4 (00:06→14:04)
[2021-08-20 02:03] LABS: Hematocrit 23.7 % (37.5-50.1); Mean Corpuscular Volume 98.3 fL (83.0-100.0); Red Blood Count 2.41 M/mcL (4.19-5.50)
[2021-08-20 02:05] LABS: Hemoglobin 7.5 g/dL (12.9-16.9); Immature Platelets 4.4 % (1.1-6.1); Mean Corpuscular HGB Conc 31.6 g/dL (31.6-35.5); Mean Corpuscular Hemoglobin 31.1 pg (28.0-33.3); Mean Platelet Volume 9.8 fL (9.4-12.4); Red Cell Distribution Width 15.7 % (11.5-14.5); White Blood Count 5.5 K/mcL (4.3-11.1)
[2021-08-20 02:26] LABS: BUN/Creatinine Ratio 11 (6-26); Blood Urea Nitrogen 7 mg/dL (8-23); Carbon Dioxide 40 mEq/L (23-29); Chloride 97 mEq/L (98-107); Glucose 228 mg/dL (70-105); Osmolality,Calculated 293 (280-300); Potassium 4.5 mEq/L (3.5-5.1); Sodium 139 mEq/L (136-145); eGFR For African Americans > 60 (> 60); eGFR For Non-African Americans > 60 (> 60)
[2021-08-20] MEDS: *HR* HYDROmorphone (PF) 1 MG/ML SYRINGE IVP PRN ×5 (02:32→21:25)
[2021-08-20] MEDS: Vancomycin 2,000 MG/520 ML IV.SOLN IVPB SCH ×2 (03:47→14:04)
[2021-08-20] MEDS: Ipratropium/Albuterol Neb 3 ML IH SCH ×6 (04:13→23:14)
[2021-08-20] MEDS: Phenylephrine 20 MG in 0.9 % Sodium Chloride 250 ML IVC SCH (05:33)
[2021-08-20] MEDS: Budesonide/Formoterol 160/4.5 1 PUFF INH IH SCH ×2 (07:32→20:15)
[2021-08-20 08:03] LABS: ABG Base Excess 16 mEq/L (-2 to 3); ABG HCO3 44 mEq/L (21-27); ABG Oxygen Saturation 92 % (95-98); ABG PCO2 81 mmHg (35-45); ABG PH 7.34 pH Units (7.32-7.45); ABG PO2 72 mmHg (85-104); ABG TCO2 47 mEq/L (20-26)
[2021-08-20] MEDS: MethylPREDNISolone 40 MG/ML VIAL IVP SCH ×2 (08:57→17:15)
[2021-08-20] MEDS: Gabapentin 300 MG CAPSULE PO SCH ×3 (08:58→20:07)
[2021-08-20] MEDS: Fluconazole 100 MG TABLET PO SCH (08:58)
[2021-08-20] MEDS: ALPRAZolam 1 MG TABLET PO SCH ×2 (08:58→20:07)
[2021-08-20] MEDS: Chlorhexidine Rinse 15 ML MOUTHWASH MM SCH ×2 (08:58→21:25)
[2021-08-20] MEDS: Insulin LISPRO 300 UNITS/3 ML VIAL SUBQ SCH ×4 (08:59→21:15)
[2021-08-20] MEDS: Piperacillin/Tazobactam 3.375 GM in 0.9 % Sodium Chloride Mini Bag 100 ML IVPB SCH ×2 (09:00→17:17)
[2021-08-20 09:48] LABS: ABG Base Excess 14 mEq/L (-2 to 3); ABG HCO3 42 mEq/L (21-27); ABG Oxygen Saturation 89 % (95-98); ABG PCO2 80 mmHg (35-45); ABG PH 7.33 pH Units (7.32-7.45); ABG PO2 64 mmHg (85-104); ABG TCO2 44 mEq/L (20-26)
[2021-08-20 12:36] LABS: ABG Base Excess 14 mEq/L (-2 to 3); ABG HCO3 43 mEq/L (21-27); ABG Oxygen Saturation 87 % (95-98); ABG PCO2 85 mmHg (35-45); ABG PH 7.31 pH Units (7.32-7.45); ABG PO2 62 mmHg (85-104); ABG TCO2 45 mEq/L (20-26); Blood Gas Pressure Support 14 cm H2O
[2021-08-20 16:15] LABS: ABG Base Excess 15 mEq/L (-2 to 3); ABG HCO3 43 mEq/L (21-27); ABG Oxygen Saturation 95 % (95-98); ABG PCO2 88 mmHg (35-45); ABG PO2 88 mmHg (85-104); ABG TCO2 46 mEq/L (20-26); Blood Gas Modality BiLevel; Blood Gas VT 450 cc
[2021-08-20 17:32] LABS: ABG Base Excess 15 mEq/L (-2 to 3); ABG HCO3 43 mEq/L (21-27); ABG Oxygen Saturation 92 % (95-98); ABG PCO2 84 mmHg (35-45); ABG PH 7.32 pH Units (7.32-7.45); ABG PO2 72 mmHg (85-104); ABG TCO2 46 mEq/L (20-26); Blood Gas VT 500 cc
[2021-08-20] MEDS: Mirtazapine 15 MG TABLET PO SCH (20:07)
[2021-08-20 20:28] LABS: ABG Base Excess 12 mEq/L (-2 to 3); ABG HCO3 40 mEq/L (21-27); ABG Oxygen Saturation 95 % (95-98); ABG PCO2 77 mmHg (35-45); ABG PH 7.32 pH Units (7.32-7.45); ABG PO2 85 mmHg (85-104); ABG TCO2 42 mEq/L (20-26); Blood Gas Modality AVAPS; Blood Gas VT 500 cc
[2021-08-21] MEDS: MethylPREDNISolone 40 MG/ML VIAL IVP SCH ×4 (00:31→23:26)
[2021-08-21] MEDS: Piperacillin/Tazobactam 3.375 GM in 0.9 % Sodium Chloride Mini Bag 100 ML IVPB SCH ×4 (00:31→23:26)
[2021-08-21] MEDS: Vancomycin 2,000 MG/520 ML IV.SOLN IVPB SCH ×2 (03:15→15:15)
[2021-08-21] MEDS: Phenylephrine 20 MG in 0.9 % Sodium Chloride 250 ML IVC SCH (03:20)
[2021-08-21] MEDS: *HR* HYDROmorphone (PF) 1 MG/ML SYRINGE IVP PRN ×3 (03:29→13:51)
[2021-08-21] MEDS: Ipratropium/Albuterol Neb 3 ML IH SCH ×7 (04:38→23:12)
[2021-08-21 05:53] LABS: Hematocrit 25.2 % (37.5-50.1); Hemoglobin 7.6 g/dL (12.9-16.9); Mean Corpuscular HGB Conc 30.2 g/dL (31.6-35.5); Mean Corpuscular Volume 99.6 fL (83.0-100.0); Mean Platelet Volume 10.3 fL (9.4-12.4); Platelet Count 100 K/mcL (140-400); Red Blood Count 2.53 M/mcL (4.19-5.50); Red Cell Distribution Width 15.9 % (11.5-14.5); White Blood Count 4.9 K/mcL (4.3-11.1)
[2021-08-21 06:00] LABS: BUN/Creatinine Ratio 21 (6-26); Blood Urea Nitrogen 15 mg/dL (8-23); Calcium 9.2 mg/dL (8.6-10.3); Carbon Dioxide 42 mEq/L (23-29); Chloride 97 mEq/L (98-107); Glucose 252 mg/dL (70-105); Osmolality,Calculated 303 (280-300); Potassium 4.6 mEq/L (3.5-5.1); Sodium 142 mEq/L (136-145); eGFR For African Americans > 60 (> 60); eGFR For Non-African Americans > 60 (> 60)
[2021-08-21] MEDS: Budesonide/Formoterol 160/4.5 1 PUFF INH IH SCH ×2 (08:02→20:35)
[2021-08-21 08:04] LABS: ABG Base Excess 16 mEq/L (-2 to 3); ABG HCO3 42 mEq/L (21-27); ABG Oxygen Saturation 96 % (95-98); ABG PCO2 66 mmHg (35-45); ABG PH 7.42 pH Units (7.32-7.45); ABG PO2 85 mmHg (85-104); ABG TCO2 44 mEq/L (20-26); Blood Gas Modality avaps; Blood Gas VT 500 cc
[2021-08-21] MEDS: Gabapentin 300 MG CAPSULE PO SCH ×3 (08:41→20:09)
[2021-08-21] MEDS: Fluconazole 100 MG TABLET PO SCH (08:41)
[2021-08-21] MEDS: ALPRAZolam 1 MG TABLET PO SCH ×2 (08:41→20:09)
[2021-08-21] MEDS: Insulin LISPRO 300 UNITS/3 ML VIAL SUBQ SCH ×4 (08:47→20:15)
[2021-08-21] MEDS: Chlorhexidine Rinse 15 ML MOUTHWASH MM SCH ×2 (08:49→20:09)
[2021-08-21] MEDS ORDERED: *HR* Propofol 200 MG/20 ML VIAL IVP ONE ×2 (09:56→10:40)
[2021-08-21] MEDS ORDERED: Lidocaine -MPF 2% 2 ML VIAL ONE ×3 (09:56→11:06)
[2021-08-21] MEDS ORDERED: Ipratropium/Albuterol Neb 3 ML ONE (10:34)
[2021-08-21] MEDS ORDERED: *HR* Rocuronium Bromide 50 MG/5 ML VIAL ONE (10:40)
[2021-08-21] MEDS ORDERED: *HR* FentaNYL (PF) 100 MCG/2 ML VIAL ONE (10:40)
[2021-08-21] MEDS ORDERED: Ondansetron 4 MG/2 ML VIAL ONE (10:40)
[2021-08-21] MEDS ORDERED: *HR* Succinylcholine 200 MG/10 ML VIAL IVP ONE (10:40)
[2021-08-21] MEDS ORDERED: Lidocaine HCL 4 ML Topical Solution (Laryng-O-Jet Kit Sterile Pak) TP ONE (10:58)
[2021-08-21] MEDS: *HR* OxyCODONE/APAP 10/325 TABLET PO PRN (15:18)
[2021-08-21 15:49] LABS: Source of Body Fluid LEFT LOWER LOBE LUNG
[2021-08-21 17:31] LABS: Appearance of Body Fluid Cloudy (Clear); Volume of Body Fluid 18 mL
[2021-08-21] MEDS: Mirtazapine 15 MG TABLET PO SCH (20:09)
[2021-08-22] MEDS: *HR* OxyCODONE/APAP 10/325 TABLET PO PRN ×4 (01:10→17:14)
[2021-08-22 02:40] LABS: Hemoglobin 7.4 g/dL (12.9-16.9)
[2021-08-22 02:41] LABS: Immature Platelets 5.3 % (1.1-6.1); Mean Corpuscular HGB Conc 30.8 g/dL (31.6-35.5); Mean Corpuscular Hemoglobin 30.2 pg (28.0-33.3); Mean Platelet Volume 10.2 fL (9.4-12.4); Red Blood Count 2.45 M/mcL (4.19-5.50); Red Cell Distribution Width 15.7 % (11.5-14.5); White Blood Count 3.5 K/mcL (4.3-11.1)
[2021-08-22] MEDS: Vancomycin 2,000 MG/520 ML IV.SOLN IVPB SCH ×2 (02:48→14:56)
[2021-08-22] MEDS: Phenylephrine 20 MG in 0.9 % Sodium Chloride 250 ML IVC SCH (02:51)
[2021-08-22 03:00] LABS: BUN/Creatinine Ratio 25 (6-26); Blood Urea Nitrogen 16 mg/dL (8-23); Carbon Dioxide 39 mEq/L (23-29); Chloride 95 mEq/L (98-107); Glucose 196 mg/dL (70-105); Osmolality,Calculated 293 (280-300); Potassium 4.5 mEq/L (3.5-5.1); Sodium 138 mEq/L (136-145); eGFR For African Americans > 60 (> 60); eGFR For Non-African Americans > 60 (> 60)
[2021-08-22] MEDS: *HR* HYDROmorphone (PF) 1 MG/ML SYRINGE IVP PRN ×2 (03:31→14:55)
[2021-08-22] MEDS: Ipratropium/Albuterol Neb 3 ML IH SCH ×6 (04:14→23:45)
[2021-08-22] MEDS: Budesonide/Formoterol 160/4.5 1 PUFF INH IH SCH ×2 (07:16→20:33)
[2021-08-22] MEDS: MethylPREDNISolone 40 MG/ML VIAL IVP SCH ×2 (08:15→17:06)
[2021-08-22] MEDS: Piperacillin/Tazobactam 3.375 GM in 0.9 % Sodium Chloride Mini Bag 100 ML IVPB SCH ×2 (08:15→17:06)
[2021-08-22] MEDS: Chlorhexidine Rinse 15 ML MOUTHWASH MM SCH ×2 (08:15→20:07)
[2021-08-22] MEDS: ALPRAZolam 1 MG TABLET PO SCH ×2 (08:16→20:07)
[2021-08-22] MEDS: Gabapentin 300 MG CAPSULE PO SCH ×3 (08:16→20:07)
[2021-08-22] MEDS: Fluconazole 100 MG TABLET PO SCH (08:17)
[2021-08-22] MEDS: Insulin LISPRO 300 UNITS/3 ML VIAL SUBQ SCH ×4 (08:17→20:12)
[2021-08-22] MEDS: Mirtazapine 15 MG TABLET PO SCH (20:07)
[2021-08-23] MEDS: Piperacillin/Tazobactam 3.375 GM in 0.9 % Sodium Chloride Mini Bag 100 ML IVPB SCH ×3 (00:12→16:29)
[2021-08-23] MEDS: MethylPREDNISolone 40 MG/ML VIAL IVP SCH ×2 (00:13→09:13)
[2021-08-23] MEDS: Vancomycin 2,000 MG/520 ML IV.SOLN IVPB SCH ×2 (02:35→14:42)
[2021-08-23] MEDS: Phenylephrine 20 MG in 0.9 % Sodium Chloride 250 ML IVC SCH (02:36)
[2021-08-23] MEDS: *HR* OxyCODONE/APAP 10/325 TABLET PO PRN ×4 (02:36→19:45)
[2021-08-23] MEDS: *HR* HYDROmorphone (PF) 1 MG/ML SYRINGE IVP PRN ×3 (04:22→18:32)
[2021-08-23] MEDS: Ipratropium/Albuterol Neb 3 ML IH SCH ×6 (04:50→23:12)
[2021-08-23 05:23] LABS: Hematocrit 25.1 % (37.5-50.1); Hemoglobin 7.9 g/dL (12.9-16.9); Mean Corpuscular HGB Conc 31.5 g/dL (31.6-35.5); Mean Corpuscular Hemoglobin 30.7 pg (28.0-33.3); Mean Corpuscular Volume 97.7 fL (83.0-100.0); Mean Platelet Volume 10.5 fL (9.4-12.4); Platelet Count 101 K/mcL (140-400); Red Blood Count 2.57 M/mcL (4.19-5.50); Red Cell Distribution Width 15.9 % (11.5-14.5); White Blood Count 3.6 K/mcL (4.3-11.1)
[2021-08-23 05:42] LABS: BUN/Creatinine Ratio 24 (6-26); Blood Urea Nitrogen 16 mg/dL (8-23); Calcium 8.9 mg/dL (8.6-10.3); Carbon Dioxide 38 mEq/L (23-29); Chloride 96 mEq/L (98-107); Glucose 247 mg/dL (70-105); Osmolality,Calculated 297 (280-300); Potassium 4.5 mEq/L (3.5-5.1); Sodium 139 mEq/L (136-145); eGFR For African Americans > 60 (> 60); eGFR For Non-African Americans > 60 (> 60)
[2021-08-23] MEDS: Budesonide/Formoterol 160/4.5 1 PUFF INH IH SCH ×2 (07:39→20:24)
[2021-08-23] MEDS: Gabapentin 300 MG CAPSULE PO SCH ×3 (09:08→19:42)
[2021-08-23] MEDS: ALPRAZolam 1 MG TABLET PO SCH ×2 (09:08→19:42)
[2021-08-23] MEDS: Chlorhexidine Rinse 15 ML MOUTHWASH MM SCH ×2 (09:13→19:42)
[2021-08-23] MEDS: Insulin LISPRO 300 UNITS/3 ML VIAL SUBQ SCH ×4 (09:24→19:42)
[2021-08-23] MEDS: Mirtazapine 15 MG TABLET PO SCH (19:42)
[2021-08-24] MEDS: Piperacillin/Tazobactam 3.375 GM in 0.9 % Sodium Chloride Mini Bag 100 ML IVPB SCH ×4 (00:32→23:40)
[2021-08-24 01:50] LABS: Hematocrit 25.2 % (37.5-50.1); Mean Corpuscular HGB Conc 31.7 g/dL (31.6-35.5); Mean Corpuscular Hemoglobin 30.9 pg (28.0-33.3); Mean Corpuscular Volume 97.3 fL (83.0-100.0); Mean Platelet Volume 10.3 fL (9.4-12.4); Platelet Count 102 K/mcL (140-400); Red Blood Count 2.59 M/mcL (4.19-5.50); Red Cell Distribution Width 15.9 % (11.5-14.5); White Blood Count 4.3 K/mcL (4.3-11.1)
[2021-08-24 02:05] LABS: BUN/Creatinine Ratio 24 (6-26); Blood Urea Nitrogen 15 mg/dL (8-23); Calcium 8.9 mg/dL (8.6-10.3); Carbon Dioxide 38 mEq/L (23-29); Chloride 96 mEq/L (98-107); Glucose 175 mg/dL (70-105); Osmolality,Calculated 293 (280-300); Potassium 4.4 mEq/L (3.5-5.1); Sodium 139 mEq/L (136-145); eGFR For African Americans > 60 (> 60); eGFR For Non-African Americans > 60 (> 60)
[2021-08-24] MEDS: *HR* HYDROmorphone (PF) 1 MG/ML SYRINGE IVP PRN ×5 (02:16→22:23)
[2021-08-24] MEDS: Vancomycin 2,000 MG/520 ML IV.SOLN IVPB SCH ×2 (02:16→16:17)
[2021-08-24] MEDS: Phenylephrine 20 MG in 0.9 % Sodium Chloride 250 ML IVC SCH (03:05)
[2021-08-24] MEDS: Ipratropium/Albuterol Neb 3 ML IH SCH ×6 (03:35→23:52)
[2021-08-24] MEDS: *HR* OxyCODONE/APAP 10/325 TABLET PO PRN ×4 (04:13→20:10)
[2021-08-24] MEDS: Budesonide/Formoterol 160/4.5 1 PUFF INH IH SCH ×2 (07:44→20:02)
[2021-08-24] MEDS: Insulin LISPRO 300 UNITS/3 ML VIAL SUBQ SCH ×4 (09:12→20:10)
[2021-08-24] MEDS ORDERED: E-Z-PAQUE (BARIUM SULF) SUSP 1 BOTTLE PO ONE (09:31)
[2021-08-24] MEDS ORDERED: E-Z-HD (BARIUM SULF) SUSPENSION PO ONE (09:31)
[2021-08-24] MEDS: ALPRAZolam 1 MG TABLET PO SCH ×2 (10:32→20:10)
[2021-08-24] MEDS: Gabapentin 300 MG CAPSULE PO SCH ×3 (10:32→20:10)
[2021-08-24] MEDS: predniSONE 20 MG TABLET PO SCH (10:32)
[2021-08-24] MEDS: Chlorhexidine Rinse 15 ML MOUTHWASH MM SCH ×2 (10:34→20:10)
[2021-08-24] MEDS: Mirtazapine 15 MG TABLET PO SCH (20:10)
[2021-08-25] MEDS: *HR* OxyCODONE/APAP 10/325 TABLET PO PRN ×4 (00:16→20:26)
[2021-08-25] MEDS: Vancomycin 2,000 MG/520 ML IV.SOLN IVPB SCH ×2 (02:45→14:45)
[2021-08-25] MEDS: Phenylephrine 20 MG in 0.9 % Sodium Chloride 250 ML IVC SCH (03:25)
[2021-08-25] MEDS: Ipratropium/Albuterol Neb 3 ML IH SCH ×6 (03:54→23:18)
[2021-08-25] MEDS: Budesonide/Formoterol 160/4.5 1 PUFF INH IH SCH ×2 (07:19→20:12)
[2021-08-25 07:37] LABS: Hematocrit 27.4 % (37.5-50.1); Mean Corpuscular Volume 98.9 fL (83.0-100.0); Red Blood Count 2.77 M/mcL (4.19-5.50)
[2021-08-25 07:38] LABS: BUN/Creatinine Ratio 21 (6-26); Blood Urea Nitrogen 13 mg/dL (8-23); Calcium 8.6 mg/dL (8.6-10.3); Carbon Dioxide 39 mEq/L (23-29); Chloride 97 mEq/L (98-107); Glucose 218 mg/dL (70-105); Osmolality,Calculated 295 (280-300); Potassium 4.1 mEq/L (3.5-5.1); Sodium 139 mEq/L (136-145); eGFR For African Americans > 60 (> 60); eGFR For Non-African Americans > 60 (> 60)
[2021-08-25 07:39] LABS: Hemoglobin 8.3 g/dL (12.9-16.9); Immature Platelets 7.9 % (1.1-6.1); Mean Corpuscular HGB Conc 30.3 g/dL (31.6-35.5); Mean Platelet Volume 10.6 fL (9.4-12.4); Red Cell Distribution Width 16.3 % (11.5-14.5); White Blood Count 5.7 K/mcL (4.3-11.1)
[2021-08-25] MEDS: Piperacillin/Tazobactam 3.375 GM in 0.9 % Sodium Chloride Mini Bag 100 ML IVPB SCH ×2 (07:59→16:00)
[2021-08-25] MEDS: predniSONE 20 MG TABLET PO SCH (08:00)
[2021-08-25] MEDS: Gabapentin 300 MG CAPSULE PO SCH ×3 (08:00→20:26)
[2021-08-25] MEDS: ALPRAZolam 1 MG TABLET PO SCH ×2 (08:00→20:26)
[2021-08-25] MEDS: Insulin LISPRO 300 UNITS/3 ML VIAL SUBQ SCH ×4 (08:01→20:35)
[2021-08-25] MEDS: Chlorhexidine Rinse 15 ML MOUTHWASH MM SCH ×2 (08:03→20:26)
[2021-08-25] MEDS: *HR* HYDROmorphone (PF) 1 MG/ML SYRINGE IVP PRN ×4 (08:08→23:18)
[2021-08-25] MEDS: Mirtazapine 15 MG TABLET PO SCH (20:26)
[2021-08-26] MEDS: *HR* OxyCODONE/APAP 10/325 TABLET PO PRN ×4 (00:41→23:01)
[2021-08-26] MEDS: Piperacillin/Tazobactam 3.375 GM in 0.9 % Sodium Chloride Mini Bag 100 ML IVPB SCH ×4 (00:45→23:01)
[2021-08-26] MEDS: Vancomycin 2,000 MG/520 ML IV.SOLN IVPB SCH ×2 (02:14→16:16)
[2021-08-26 03:05] LABS: Albumin 2.6 g/dL (3.5-5.7); Bilirubin,Direct 0.2 mg/dL (0.0-0.2); Bilirubin,Indirect 0.4 mg/dL (0.0-1.0); Bilirubin,Total 0.6 mg/dL (0.3-1.0); Globulin 2.5 g/dL (2.4-3.5); Phosphorous 1.9 mg/dL (2.7-4.5); Total Protein 5.1 g/dL (6.4-8.9)
[2021-08-26] MEDS: Ipratropium/Albuterol Neb 3 ML IH SCH ×6 (03:48→23:49)
[2021-08-26] MEDS: *HR* HYDROmorphone (PF) 1 MG/ML SYRINGE IVP PRN ×4 (07:45→20:14)
[2021-08-26] MEDS: Budesonide/Formoterol 160/4.5 1 PUFF INH IH SCH ×2 (07:54→20:02)
[2021-08-26] MEDS: ALPRAZolam 1 MG TABLET PO SCH ×2 (09:03→20:02)
[2021-08-26] MEDS: predniSONE 20 MG TABLET PO SCH (09:03)
[2021-08-26] MEDS: Benzonatate 100 MG CAPSULE PO PRN (09:03)
[2021-08-26] MEDS: Insulin LISPRO 300 UNITS/3 ML VIAL SUBQ SCH ×4 (09:03→20:01)
[2021-08-26] MEDS: Gabapentin 300 MG CAPSULE PO SCH ×3 (09:03→20:02)
[2021-08-26] MEDS: Chlorhexidine Rinse 15 ML MOUTHWASH MM SCH ×2 (09:04→20:03)
[2021-08-26] MEDS: Nystatin POWDER 30 GM BOTTLE TP SCH (18:09)
[2021-08-26] MEDS: Mirtazapine 15 MG TABLET PO SCH (20:02)
[2021-08-27] MEDS: Vancomycin 2,000 MG/520 ML IV.SOLN IVPB SCH ×2 (02:33→14:34)
[2021-08-27] MEDS: *HR* HYDROmorphone (PF) 1 MG/ML SYRINGE IVP PRN ×4 (02:33→21:03)
[2021-08-27 03:17] LABS: Hematocrit 26.8 % (37.5-50.1); Hemoglobin 8.2 g/dL (12.9-16.9); Mean Corpuscular HGB Conc 30.6 g/dL (31.6-35.5); Mean Corpuscular Hemoglobin 30.7 pg (28.0-33.3); Mean Corpuscular Volume 100.4 fL (83.0-100.0); Platelet Count 133 K/mcL (140-400); Red Blood Count 2.67 M/mcL (4.19-5.50); Red Cell Distribution Width 16.6 % (11.5-14.5); White Blood Count 7.1 K/mcL (4.3-11.1)
[2021-08-27 03:36] LABS: Magnesium 2.1 mg/dL (1.6-2.6); Phosphorous 3.5 mg/dL (2.7-4.5)
[2021-08-27] MEDS: Ipratropium/Albuterol Neb 3 ML IH SCH ×6 (03:59→23:53)
[2021-08-27] MEDS: *HR* OxyCODONE/APAP 10/325 TABLET PO PRN ×2 (05:16→14:41)
[2021-08-27] MEDS: Insulin LISPRO 300 UNITS/3 ML VIAL SUBQ SCH ×4 (07:40→21:03)
[2021-08-27] MEDS: Nystatin POWDER 30 GM BOTTLE TP SCH ×2 (07:41→21:03)
[2021-08-27] MEDS: ALPRAZolam 1 MG TABLET PO SCH ×2 (07:41→19:05)
[2021-08-27] MEDS: Gabapentin 300 MG CAPSULE PO SCH ×3 (07:41→19:05)
[2021-08-27] MEDS: Chlorhexidine Rinse 15 ML MOUTHWASH MM SCH ×2 (07:41→21:02)
[2021-08-27] MEDS: predniSONE 20 MG TABLET PO SCH (07:41)
[2021-08-27] MEDS: Piperacillin/Tazobactam 3.375 GM in 0.9 % Sodium Chloride Mini Bag 100 ML IVPB SCH ×2 (07:42→16:51)
[2021-08-27] MEDS: Budesonide/Formoterol 160/4.5 1 PUFF INH IH SCH ×2 (07:44→20:51)
[2021-08-27 08:39] LABS: BUN/Creatinine Ratio 25 (6-26); Blood Urea Nitrogen 14 mg/dL (8-23); Calcium 8.6 mg/dL (8.6-10.3); Carbon Dioxide 34 mEq/L (23-29); Chloride 100 mEq/L (98-107); Glucose 173 mg/dL (70-105); Osmolality,Calculated 297 (280-300); Potassium 4.4 mEq/L (3.5-5.1); Sodium 141 mEq/L (136-145); eGFR For African Americans > 60 (> 60); eGFR For Non-African Americans > 60 (> 60)
[2021-08-27] MEDS ORDERED: Isovue-370 500 ML BOTTLE IVP ONE (09:40)
[2021-08-27] MEDS: Meropenem 1,000 MG in 0.9 % Sodium Chloride 10 ML IVP SCH ×2 (17:57→23:48)
[2021-08-27] MEDS: Mirtazapine 15 MG TABLET PO SCH (19:05)
[2021-08-28] MEDS: Vancomycin 2,000 MG/520 ML IV.SOLN IVPB SCH ×2 (02:29→14:36)
[2021-08-28 03:10] LABS: Hematocrit 26.2 % (37.5-50.1); Hemoglobin 8.2 g/dL (12.9-16.9); Mean Corpuscular HGB Conc 31.3 g/dL (31.6-35.5); Mean Corpuscular Hemoglobin 30.1 pg (28.0-33.3); Mean Corpuscular Volume 96.3 fL (83.0-100.0); Mean Platelet Volume 10.9 fL (9.4-12.4); Nucleated Red Blood Cells 0.2 /100 WBC (0); Platelet Count 171 K/mcL (140-400); Red Blood Count 2.72 M/mcL (4.19-5.50); Red Cell Distribution Width 16.4 % (11.5-14.5); White Blood Count 8.1 K/mcL (4.3-11.1)
[2021-08-28 03:35] LABS: Alanine Aminotransferase 128 Units/L (7-52); Albumin 2.4 g/dL (3.5-5.7); Albumin/Globulin Ratio 0.8 (1.1-2.2); Alkaline Phosphatase 144 Units/L (34-104); Aspartate Amino Transferase 29 Units/L (13-39); BUN/Creatinine Ratio 26 (6-26); Bilirubin,Direct 0.2 mg/dL (0.0-0.2); Bilirubin,Indirect 0.4 mg/dL (0.0-1.0); Bilirubin,Total 0.6 mg/dL (0.3-1.0); Blood Urea Nitrogen 14 mg/dL (8-23); Calcium 8.8 mg/dL (8.6-10.3); Carbon Dioxide 38 mEq/L (23-29); Chloride 96 mEq/L (98-107); Glucose 139 mg/dL (70-105); Magnesium 1.9 mg/dL (1.6-2.6); Osmolality,Calculated 289 (280-300); Potassium 4.3 mEq/L (3.5-5.1); Sodium 138 mEq/L (136-145); Total Protein 5.4 g/dL (6.4-8.9); eGFR For African Americans > 60 (> 60); eGFR For Non-African Americans > 60 (> 60)
[2021-08-28 04:00] LABS: Hypochromasia Present (Not Present); Platelet Estimate Normal (Normal)
[2021-08-28 04:01] LABS: Lymphocytes # 0.3 K/mcL (0.6-4.6); Monocytes # 0.2 K/mcL (0.0-1.3); Neutrophils # 7.5 K/mcL (1.6-8.9)
[2021-08-28] MEDS: Ipratropium/Albuterol Neb 3 ML IH SCH ×6 (04:03→23:25)
[2021-08-28] MEDS: *HR* HYDROmorphone (PF) 1 MG/ML SYRINGE IVP PRN ×3 (04:27→14:35)
[2021-08-28] MEDS: Budesonide/Formoterol 160/4.5 1 PUFF INH IH SCH ×2 (07:27→19:59)
[2021-08-28] MEDS: Chlorhexidine Rinse 15 ML MOUTHWASH MM SCH ×2 (07:32→20:13)
[2021-08-28] MEDS: Gabapentin 300 MG CAPSULE PO SCH ×4 (07:32→20:16)
[2021-08-28] MEDS: Meropenem 1,000 MG in 0.9 % Sodium Chloride 10 ML IVP SCH ×2 (07:32→15:33)
[2021-08-28] MEDS: ALPRAZolam 1 MG TABLET PO SCH ×3 (07:33→20:15)
[2021-08-28] MEDS: Nystatin POWDER 30 GM BOTTLE TP SCH ×2 (07:33→20:16)
[2021-08-28] MEDS: predniSONE 20 MG TABLET PO SCH ×2 (07:33→08:03)
[2021-08-28] MEDS: Insulin LISPRO 300 UNITS/3 ML VIAL SUBQ SCH ×4 (07:37→21:33)
[2021-08-28] MEDS: *HR* OxyCODONE/APAP 10/325 TABLET PO PRN ×4 (08:03→23:25)
[2021-08-28] MEDS: Mirtazapine 15 MG TABLET PO SCH (20:16)
[2021-08-28] MEDS: Acetaminophen 325 MG TABLET PO PRN (20:16)
[2021-08-29] MEDS: Meropenem 1,000 MG in 0.9 % Sodium Chloride 10 ML IVP SCH ×2 (00:41→08:05)
[2021-08-29] MEDS: Vancomycin 2,000 MG/520 ML IV.SOLN IVPB SCH (02:21)
[2021-08-29] MEDS: *HR* HYDROmorphone (PF) 1 MG/ML SYRINGE IVP PRN (03:22)
[2021-08-29] MEDS: Ipratropium/Albuterol Neb 3 ML IH SCH ×2 (04:11→07:40)
[2021-08-29] MEDS: Budesonide/Formoterol 160/4.5 1 PUFF INH IH SCH (07:40)
[2021-08-29] MEDS: Chlorhexidine Rinse 15 ML MOUTHWASH MM SCH (07:56)
[2021-08-29] MEDS: Nystatin POWDER 30 GM BOTTLE TP SCH (07:57)
[2021-08-29] MEDS: Gabapentin 300 MG CAPSULE PO SCH (07:57)
[2021-08-29] MEDS: ALPRAZolam 1 MG TABLET PO SCH (07:58)
[2021-08-29] MEDS ORDERED: FentaNYL (PF) 1,000 MCG/100 ML IV.SOLN IVC SCH (08:45)
[2021-08-29] MEDS ORDERED: Norepinephrine 4 MG/254 ML IV.SOLN IVC SCH (09:00)
[2021-08-29] MEDS: Insulin LISPRO 300 UNITS/3 ML VIAL SUBQ SCH (09:10)
[2021-08-29] MEDS ORDERED: Artificial Tears SOLN 15 ML BOTTLE BOTH EYES PRN (09:33)
[2021-08-29 10:20] LABS: ABG Base Excess 11 mEq/L (-2 to 3); ABG HCO3 34 mEq/L (21-27); ABG Oxygen Saturation 94 % (95-98); ABG PCO2 39 mmHg (35-45); ABG PH 7.55 pH Units (7.32-7.45); ABG PO2 60 mmHg (85-104); ABG TCO2 36 mEq/L (20-26); Blood Gas Modality ASSIST CONTROL; Blood Gas VT 420 cc
[2021-08-29] MEDS ORDERED: Phenylephrine 20 MG in 0.9 % Sodium Chloride 250 ML IVC SCH (10:45)
[2021-08-29 11:01] VITALS: BP 171/109; PULSE 112; TEMP 100; O2SAT 94
[2021-08-29] MEDS ORDERED: *HR* Propofol 200 MG/20 ML VIAL IVP ONE (11:31)
[2021-08-29] MEDS ORDERED: Lidocaine -MPF 2% 5 ML VIAL SQ ONE (11:31)
[2021-08-29] MEDS ORDERED: *HR* Midazolam HCl 5 MG/5 ML VIAL IVP ONE (11:31)
[2021-08-29] MEDS ORDERED: *HR* Rocuronium Bromide 50 MG/5 ML VIAL IVP ONE (11:31)
[2021-08-29] MEDS ORDERED: Artificial Tears SOLN 15 ML BOTTLE BOTH EYES SCH (12:00)
[2021-08-29] MEDS ORDERED: Chlorhexidine Rinse 15 ML MOUTHWASH MM SCH (21:00)
[2021-08-30] MEDS ORDERED: Pantoprazole 40 MG VIAL IVP SCH (09:00)
== END 2021-08-29 11:32 | disposition short-term general hospital (02) | DRG 208 ==
LOC: EMEROOARM 14:07 → 3ANU 14:07 → SUATTDRO 19:41 → 3ANU 19:44 → SUATTDRO 07-30 15:50 → 2NNU 08-14 19:49 → ICNU 08-29 09:04
PROVIDERS: ADMIT Internal Medicine; ATTEND Internal Medicine
PROC: IRDRAIN (2021-08-02 12:00)
PROC: ENDOEBX (2021-08-02 15:00)